=== PATIENT | male | born 1970 | race African-American/Black ===

== ENCOUNTER 2024-05-19 19:31 | Inpatient (IN) | payer MEDICAID, SELFPAY ==
[2024-05-19] VITALS (14 sets, daily range): BP systolic 196–237; BP diastolic 113–151; PULSE 92–118; RESP 16–38; TEMP 36.7–37.1; O2SAT 92–100; BMI 29.8
--- NOTE | 2024-05-19 19:43 | EKG_ITS ---
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
--- NOTE | 2024-05-19 20:03 | XR_ITS ---
Examination: AP chest single view Technique one AP portable sitting chest single view Exam date and time: May 19, 20242007 hrs. Indications: Shortness of breath today. Findings: Mild enlargement cardiac contour Mild vascular congestion. No lobar pneumonia or pulmonary edema Impression: Mild vascular congestion
--- NOTE | 2024-05-19 20:05 | PD.EDADULT ---
ED General RME/HPI General Chief complaint: Shortness of Breath/Dyspnea Stated complaint: SOB Time Seen by Provider: 05/19/24 19:58 Arrival date/time: 05/19/24 19:31 CC: Shortness of breath HPI ongoing for past several months but worse today. Does not wear oxygen at home states he has been taking all of his medications regularly. The patient is drowsy, tachypneic and tachycardic. Patient noted for history of methamphetamine abuse. Patient states he has not used methamphetamines in months . Female at bedside states he will stay if he needs to be admitted. Related Data Home Medications ?Medication ?Instructions ?Recorded ?Confirmed bumetanide 2 mg tablet 2 mg PO QDAY 12/05/23 12/17/23 Previous Rx's ?Medication ?Instructions ?Recorded labetalol 100 mg tablet 100 mg PO BID 1 month #60 tabs 03/29/23 gabapentin 300 mg capsule 300 mg PO QHS #30 caps 11/03/23 tamsulosin 0.4 mg capsule 0.4 mg PO QHS #30 caps 11/03/23 hydralazine 50 mg tablet 100 mg (2 x 50 mg) PO BID #120 tabs 12/05/23 Allergies Allergy/AdvReac Type Severity Reaction Status Date / Time No Known Allergies Allergy Verified 12/05/23 10:13 Review of Systems Review of Systems Narrative Review of Systems: GEN: No fever, no chills, no weight loss EYES: No discharge, no visual changes, no pain HEENT: No ear pain, no congestion, no sore throat PULM: + shortness of breath, no cough, no congestion CV: No chest pain, no dyspnea on exertion, no palpitations GI: No nausea, no vomiting, no diarrhea, no pain, no constipation : No frequency, no urgency, no dysuria MUSC/SKEL: No joint pain, no back pain SKIN: No rash PSYCH: No hallucinations, no depression HEME/LYMPH: No easy bleeding or bruising tendencies NEURO: No weakness, no headache Past Medical History Past Medical History CARDIAC: Positive Hypertension; Negative Congestive Heart Failure RESPIRATORY: Negative Chronic Obstructive Pulmonary Disease (COPD) GENITOURINARY: Negative Renal Disease ENDOCRINE: Negative Diabetes Mellitus Type 1 or Diabetes Mellitus Type 2 Family History FAMILY HISTORY: Positive Family Cardiac Disorders Social History SMOKING STATUS: Current some day smoker ED Exam Narrative Physical exam: [General: Drowsy but appears not in any acute distress Head normocephalic HEENT: Within acceptable limits Neck is supple nontender Chest equal chest rise nontender to palpation Respiratory: Clear to auscultation no wheezes crackles or rubs CV: Rate rhythm is regular no murmurs rubs or clicks Abdomen is soft nontender no masses positive bowel sounds all 4 quadrants Back: No CVA tenderness no spinous process tenderness from cervical spine thoracic and lumbar spine Skin: Intact no petechiae rash induration ulceration or crepitus Extremities: Moving all extremity against resistance cap refill less than 2 seconds neurosensory intact. Nonpitting lower extremity edema Neuro: Drowsy but awake alert oriented x3 Glascow coma 15 no focal deficits] Course Quality Measures none Orders Category Date Time Status EKG (ED ONLY) *Do not use* NOW Care 05/19/24 19:43 Completed EKG (ED ONLY) *Do not use* NOW Care 05/19/24 20:03 Completed EKG (ED Only) Stat Exams 05/19/24 19:43 Draft EKG (ED Only) Stat Exams 05/19/24 20:03 Ordered US abdomen limited Stat Exams 05/19/24 23:14 Completed XR chest 1V Stat Exams 05/19/24 20:03 Completed Alcohol, Blood Medical Stat Lab 05/19/24 20:27 Completed B-Type Natriuretic Peptide Stat Lab 05/19/24 20:27 Completed CBC Stat Lab 05/19/24 20:27 Completed Comprehensive Metabolic Panel Stat Lab 05/19/24 20:27 Completed D-Dimer Stat Lab 05/19/24 20:27 Completed Drug Screen,Urine Stat Lab 05/19/24 22:50 Completed LDH (Lactate Dehydrogenase) Stat Lab 05/19/24 20:27 Completed Magnesium Stat Lab 05/19/24 20:27 Completed Partial Thromboplastin Time Stat Lab 05/19/24 20:27 Completed Prothrombin Time with INR Stat Lab 05/19/24 20:27 Completed Troponin I Stat Lab 05/19/24 20:27 Completed Urinalysis Stat Lab 05/19/24 22:50 Completed Losartan [Cozaar] Med 05/19/24 22:00 Discontinued 100 mg PO X1 ONE cloNIDine HCL [Catapres] Med 05/19/24 23:22 Discontinued 0.2 mg PO X1 ONE hydrALAZINE INJ [Apresoline Inj] Med 05/19/24 22:00 Discontinued 20 mg IV X1 ONE Vital Signs Vital signs: Vital Signs Pulse Rate 105 H 05/19/24 19:36 Respiratory Rate 16 05/19/24 19:36 Blood Pressure 217/126 H 05/19/24 19:36 Pulse Oximetry (%) 100 05/19/24 19:36 Oxygen Delivery Method Nasal Cannula 05/19/24 19:36 Oxygen Flow Rate 6 05/19/24 19:36 [facility] Patient data External records reviewed:: [facility] previous records and EMS form Clinical information provided by:: patient and EMS Social determinants that could affect healthcare access:: none Patient has the following chronic illnesses:: Methamphetamine abuse CKD How is presenting disease/condition affected by chronic disease/condition?: exacerbated by Evaluation data The following diagnostics were reviewed and interpreted by me:: lab results, radiology exam(s) and EKG tracing(s) Lab and/or radiology exams considered but not ordered:: CBC shows no acute leukocytosis anemia thrombocytopenia Coags shows PT of 14.9 with an INR of 1.4 D-dimer of 1450 CMP shows a BUN of 26 and creatinine of 2.1 no other significant electrolyte imbalances. Elevated transaminases with a T. bili of 3.1 Troponin is elevated at 0.287 BNP is greater than 3250 Interpretation Summary: Review the medical record show the patient left AMA in March of last year for similar complaint. Patient assures me now this time he wants to stay. Significant other female at bedside assured me that he will stay. The patient has an elevated D-dimer with a creatinine is not capable of taking CTA contrast therefore needs a V/Q. In addition the patient has elevated troponin but not as high as it has been in the past. Patient's case discussed with Dr. Randle the resident for Dr. Coleman, who agrees to accept the patient for shortness of breath elevated D-dimer Medications Medications considered but not ordered:: None Medication administrations:: Medication Administration History Acetaminophen (Acetaminophen 325 Mg Tablet) 650 mg PO Q6H PRN PRN Reason: Pain 1-3 or Fever >100.3 Stop: 06/19/24 01:02 Bumetanide (Bumetanide Inj 0.25 Mg/Ml Vial 4 Ml) 2 mg IVP BID MICAH Stop: 06/19/24 09:29 Last Admin: 05/20/24 10:39 Dose: 2 mg Documented By: MS Gabapentin (Gabapentin 300 Mg Capsule) 300 mg PO QDAY [facility] Stop: 06/19/24 08:59 Last Admin: 05/20/24 10:41 Dose: 300 mg Documented By: MS Heparin Sodium (Porcine) (Heparin Sod Inj 5000 Unit/Ml Vial) 5,000 unit SC TID [facility] Stop: 06/03/24 21:59 Last Admin: 05/20/24 21:56 Dose: 5,000 unit Documented By: CLT Co-signed By: AD Fentanyl Citrate (Sublimaze Inj 2,500 Mcg/250 Ml Bag) 2,500 mcg in 250 mls @ 2.5 mls/hr IV .Q24H PRN; Protocol PRN Reason: PER PROTOCOL Stop: 05/25/24 16:55 Last Titration: 05/20/24 20:42 Dose: 100 mcg/hr, 10 mls/hr Documented By: Titration: 05/20/24 20:00 Dose: 100 mcg/hr, 10 mls/hr Documented By: Titration: 05/20/24 19:50 Dose: 100 mcg/hr, 10 mls/hr Documented By: Titration: 05/20/24 19:10 Dose: 100 mcg/hr, 10 mls/hr Documented By: Admin: 05/20/24 17:25 Dose: 25 mcg/hr, 2.5 mls/hr Documented By: TM Co-signed By: MARYAM Propofol (Diprivan Ivpb) 1,000 mg in 100 mls @ 2.994 mls/hr IV .Q24H PRN; Protocol PRN Reason: PER PROTOCOL Stop: 06/19/24 16:55 Last Titration: 05/20/24 19:50 Dose: 25 mcg/kg/min, 14.969 mls/hr Documented By: Titration: 05/20/24 19:10 Dose: 25 mcg/kg/min, 14.969 mls/hr Documented By: Admin: 05/20/24 17:39 Dose: 5 mcg/kg/min, 2.994 mls/hr Documented By: TM Co-signed By: MS Norepinephrine/Dextrose (Levophed In D5w 8mg/250ml) 8 mg in 250 mls @ 9.355 mls/hr IV .Q24H PRN; Protocol PRN Reason: PER PROTOCOL Stop: 06/19/24 17:25 Last Titration: 05/20/24 20:35 Dose: 0.25 mcg/kg/min, 46.777 mls/hr Documented By: Admin: 05/20/24 20:30 Dose: 0.25 mcg/kg/min, 46.777 mls/hr Documented By: JOANNA Labetalol HCl (Labetalol Inj 5 Mg/Ml Vial 20 Ml) 10 mg IVP Q6HR PRN PRN Reason: SBP >170 DBP>110 HR>80 Stop: 06/19/24 01:10 Last Admin: 05/20/24 12:24 Dose: 10 mg Documented By: Admin: 05/20/24 03:15 Dose: 10 mg Documented By: PEREZ Nitroglycerin (Nitroglycerin 0.4 Mg Subl Btl #25) 0.4 mg SL Q5MIN PRN PRN Reason: CHEST PAIN Ondansetron HCl (Ondansetron Inj 2 Mg/Ml Inj 2 Ml) 4 mg IV Q6H PRN; Protocol PRN Reason: NAUSEA OR VOMITING Stop: 06/19/24 01:02 Pantoprazole Sodium (Pantoprazole Inj 40 Mg Vial) 40 mg IVP [facility] Stop: 06/19/24 20:59 Last Admin: 05/20/24 20:54 Dose: 40 mg Documented By: JOANNA Sennosides (Senna Tablet) 1 tab PO QDAY [facility]; Protocol Stop: 06/19/24 08:59 Last Admin: 05/20/24 10:40 Dose: 1 tab Documented By: Tamsulosin HCl (Tamsulosin Hcl 0.4 Mg Capsule) 0.4 mg PO [facility] Stop: 06/19/24 20:59 Discontinued Medications Amlodipine Besylate (Amlodipine Besylate 5 Mg Tablet) 10 mg PO QDAY [facility] Stop: 06/19/24 08:59 Last Admin: 05/20/24 10:40 Dose: 10 mg Documented By: Bumetanide (Bumetanide 0.5 Mg Tablet) 2 mg PO BID [facility] Stop: 06/19/24 01:14 Last Admin: 05/20/24 11:11 Dose: Not Given Documented By: Non-Admin Reason: Cancelled by Provider Admin: 05/20/24 03:09 Dose: 2 mg Documented By: PEREZ Bumetanide (Bumetanide Inj 0.25 Mg/Ml Vial 4 Ml) 2 mg IVP X1 ONE Stop: 05/20/24 09:26 Calcium Chloride (Calcium Chloride 10% Inj 10 Ml Syrg) 10 ml IV X1 ONE Stop: 05/20/24 17:56 Last Admin: 05/20/24 18:24 Dose: 10 ml Documented By: SUKHI Clonidine (Clonidine Hcl 0.1 Mg Tablet) 0.2 mg PO X1 ONE Stop: 05/19/24 23:23 Last Admin: 05/19/24 23:26 Dose: 0.2 mg Documented By: PEREZ Etomidate (Etomidate Inj 2 Mg/Ml Vial 10 Ml) Confirm Administered Dose 40 mg .ROUTE .STK-MED ONE Stop: 05/20/24 16:47 Last Admin: 05/20/24 17:20 Dose: Not Given Documented By: SUKHI Non-Admin Reason: Override Medication Etomidate (Etomidate Inj 2 Mg/Ml Vial 10 Ml) 20 mg IVP X1 ONE Stop: 05/20/24 16:55 Last Admin: 05/20/24 16:58 Dose: 20 mg Documented By: SUKHI Etomidate (Etomidate Inj 2 Mg/Ml Vial 10 Ml) 20 mg IVP X1 ONE Stop: 05/20/24 17:46 Last Admin: 05/20/24 17:15 Dose: 20 mg Documented By: SUKHI Hydralazine HCl (Hydralazine Inj 20 Mg/Ml Vial) 20 mg IV X1 ONE Stop: 05/19/24 22:01 Last Admin: 05/19/24 22:12 Dose: 20 mg Documented By: PEREZ Hydralazine HCl (Hydralazine Hcl 25 Mg Tablet) 50 mg PO TID MICAH Stop: 06/19/24 10:14 Last Admin: 05/20/24 15:44 Dose: Not Given Documented By: Non-Admin Reason: Cancelled by Provider Admin: 05/20/24 10:39 Dose: 50 mg Documented By: Norepinephrine/Dextrose (Levophed In D5w 8mg/250ml) 8 mg in 250 mls @ 9.355 mls/hr IV .Q24H PRN; Protocol PRN Reason: PER PROTOCOL Stop: 06/19/24 17:25 Last Titration: 05/20/24 20:30 Dose: 0 mcg/kg/min, 0 mls/hr Documented By: Titration: 05/20/24 19:20 Dose: 0.25 mcg/kg/min, 46.777 mls/hr Documented By: Titration: 05/20/24 19:10 Dose: 0.25 mcg/kg/min, 46.777 mls/hr Documented By: Admin: 05/20/24 17:43 Dose: 0.05 mcg/kg/min, 9.355 mls/hr Documented By: SUKHI Lactated Ringer's (Lactated Ringers) 1,000 mls @ 999 mls/hr IV .Q1H1M ONE Stop: 05/20/24 19:07 Last Infusion: 05/20/24 20:31 Dose: Infused Documented By: Admin: 05/20/24 18:48 Dose: 999 mls/hr Documented By: SUKHI Calcium Chloride 10 ml/ Sodium (Chloride) 110 mls @ 110 mls/hr IV X1 ONE Stop: 05/20/24 18:44 Last Infusion: 05/20/24 20:49 Dose: Infused Documented By: Admin: 05/20/24 18:48 Dose: 110 mls/hr Documented By: SUKHI Calcium Chloride 10 ml/ Sodium (Chloride) 110 mls @ 110 mls/hr IV X1 ONE Stop: 05/20/24 19:17 Last Infusion: 05/20/24 20:50 Dose: Infused Documented By: Admin: 05/20/24 19:48 Dose: 110 mls/hr Documented By: JOANNA Norepinephrine/Dextrose (Levophed In D5w 8mg/250ml) 8 mg in 250 mls @ 9.355 mls/hr IV .Q24H PRN; Protocol PRN Reason: PER PROTOCOL Stop: 06/19/24 17:25 Labetalol HCl (Labetalol 100 Mg Tablet) 100 mg PO BID MICAH Stop: 06/19/24 08:59 Last Admin: 05/20/24 11:11 Dose: Not Given Documented By: Non-Admin Reason: Cancelled by Provider Lorazepam (Lorazepam 2 Mg/Ml Vial) 1 mg IVP X1 ONE Stop: 05/20/24 17:31 Last Admin: 05/20/24 17:33 Dose: 1 mg Documented By: TM Lorazepam (Lorazepam 2 Mg/Ml Vial) Confirm Administered Dose 2 mg .ROUTE .STK-MED ONE Stop: 05/20/24 17:28 Last Admin: 05/20/24 17:44 Dose: Not Given Documented By: SUKHI Non-Admin Reason: Override Medication Losartan Potassium (Losartan Potassium 25 Mg Tablet) 100 mg PO X1 ONE Stop: 05/19/24 22:01 Last Admin: 05/19/24 22:13 Dose: 100 mg Documented By: PEREZ Nifedipine (Nifedipine 10 Mg Capsule) 30 mg PO TID [facility] Stop: 06/19/24 15:14 Last Admin: 05/20/24 15:47 Dose: 30 mg Documented By: Potassium Chloride (Potassium Chloride 20 Meq Tabcr) 40 meq PO X1 ONE Stop: 05/20/24 09:23 Last Admin: 05/20/24 10:47 Dose: 40 meq Documented By: Potassium Chloride (Potassium Chloride 20 Meq Tabcr) 20 meq PO X1 ONE Stop: 05/20/24 11:01 Last Admin: 05/20/24 10:47 Dose: 20 meq Documented By: Sevelamer Carbonate (Sevelamer Carbonate 800 Mg Tablet) 800 mg PO X1 ONE Stop: 05/20/24 10:19 Last Admin: 05/20/24 12:07 Dose: 800 mg Documented By: Succinylcholine Chloride (Succinylcholine Inj 20 Mg/Ml Vial 10 Ml) Confirm Administered Dose 400 mg .ROUTE .STK-MED ONE Stop: 05/20/24 16:48 Last Admin: 05/20/24 17:20 Dose: Not Given Documented By: SUKHI Non-Admin Reason: Override Medication Succinylcholine Chloride (Succinylcholine Inj 20 Mg/Ml Vial 10 Ml) 100 mg IV X1 ONE Stop: 05/20/24 16:55 Last Admin: 05/20/24 16:59 Dose: 100 mg Documented By: SUKHI Tamsulosin HCl (Tamsulosin Hcl 0.4 Mg Capsule) 0.4 mg PO QDAY [facility] Stop: 06/19/24 08:59 Last Admin: 05/20/24 11:11 Dose: Not Given Documented By: Non-Admin Reason: Cancelled by Provider None Consultations Consultation(s) initiated? (list below): No Diagnosis Differential Diagnosis ED Complaint MDM: PE congestive heart failure pneumonia Most likely diagnosis given after review of the tests above:: Shortness of breath Admission Indicated Admission indicated?: indicated Explain why admission is indicated or not indicated:: Further medical management Admission Request Was there a request for admission?: No Disposition Plan Disposition Plan: Admit Medical Decision Making Differential Diagnosis Differential Diagnosis: PE congestive heart failure pneumonia Lab Data 05/20/24 18:18 05/20/24 18:18 Labs: Lab Results 05/19/24 05/19/24 Range/Units 20:27 22:50 WBC 5.6 (3.8-10.6) Thou/mm3 RBC 5.08 (4.50-5.90) Miln/mm3 Hgb 16.1 H (13.5-16.0) g/dL Hct 47.1 (41.0-53.0) % MCV 93 (80-100) fL MCH 31.7 (25.0-35.0) pg MCHC 34.2 (31.0-37.0) g/dl RDW Std Deviation 49.8 H (35.1-43.9) fL Plt Count 213 (140-440) Thou/mm3 Neut % (Auto) 75 (37-80) % Lymph % (Auto) 8 L (10-50) % [place] % (Auto) 16 H (0-12) % Eos % (Auto) 0 (0-10) % Baso % (Auto) 0 (0-2.5) % Neut # (Auto) 4.2 (1.8-7.7) Thou/mm3 Lymph # (Auto) 0.4 L (1.0-4.8) Thou/mm3 [place] # (Auto) 0.9 H (0.0-0.8) Thou/mm3 Eos # (Auto) 0.0 (0.0-0.5) Thou/mm3 Baso # (Auto) 0.0 (0.0-0.2) Thou/mm3 Immature Gran # (Auto) 0.06 H (0.00-0.00) Thou/mm3 Absolute Nucleated RBC 0.00 (0.00-0.00) Thou/mm3 Immature Gran % 1 H (0-0) % Nucleated RBC % 0 (0) /100 WBC PT 14.9 H (9.0-12.2) Seconds INR 1.4 H (0.9-1.3) APTT 30.1 (22.0-36.0) Seconds D-Dimer 1450 H (<600) ng/mL Sodium 136 (136-145) mMol/L Potassium 3.8 (3.4-5.1) mMol/L Chloride 96 L (98-107) mMol/L Carbon Dioxide 23.3 (20.0-31.0) mMol/L Anion Gap 17 H (7-16) BUN 26 H (9-23) mg/dL Creatinine 2.1 H (0.6-1.3) mg/dL Estim Creat Clear Calc 48.6 L (>60) mL/min eGFR 36 L (60 - ) See Note BUN/Creatinine Ratio 12 (12-20) Ratio Glucose 91 (74-106) mg/dL Calculated Osmolality 276 (275-295) Calcium 9.8 (8.3-10.6) mg/dL Corrected Calcium 9.8 (8.5-10.1) mg/dL Magnesium 2.2 (1.6-2.6) mg/dL Total Bilirubin 4.3 H (0.3-1.2) mg/dL AST 86 H (0-34) U/L ALT 50 H (10-49) U/L Alkaline Phosphatase 122 H (46-116) U/L Lactate Dehydrogenase 616 H (120-246) U/L Troponin I 0.287 H* (0.0-0.045) ng/mL B-Natriuretic Peptide > 3280 H* (0-100) pg/mL Total Protein 8.4 H (5.7-8.2) gm/dL Albumin 4.3 (3.5-5.0) gm/dL Globulin 4.1 H (2.3-3.5) gm/dL Albumin/Globulin Ratio 1.0 L (1.2-2.2) Ur Collection Type Clean Catch Urine Color Drk-Yellow A (Lt Yel-Yel) Urine Clarity Clear (Clear/Hazy) Urine pH 6.0 (5.0-7.0) Ur Specific [place] 1.025 (1.001-1.035) Urine Protein 3+ A (Neg - Trace) Urine Glucose (UA) Negative (Negative) Urine Ketones Trace (Negative) Urine Blood 1+ A (Negative) Urine Nitrite Negative (Negative) Urine Bilirubin 1+ A (Negative) Urine Urobilinogen (Auto) 8.0 (0.0-1.0) mg/dL Ur Leukocyte Esterase Negative (Negative) Urine RBC 3 (0-3) /hpf Urine WBC 0 (0-5) /hpf Ur Squamous Epith Cells < 1 (0-5) /hpf Urine Bacteria None (None) Hyaline Casts 1 (0-1) /hpf Urine Opiates Screen Negative (Negative) Urine Fentanyl Screen Negative (Negative) Ur Barbiturates Screen Negative (Negative) U Amphetamin/Meth Scrn Positive A (Negative) U Benzodiazepines Scrn Negative (Negative) U Cocaine Metab Screen Negative (Negative) U Marijuana (THC) Screen Positive A (Negative) Ethyl Alcohol < 3.0 (0-10.0) mg/dL Discharge Plan Plan Patient Disposition: Admit Acute Care w/in Hospital Problem List Clinical Impression: Shortness of breath, Methamphetamine abuse, D-dimer, elevated PA/[employer] Supervising Physician [employer] Supervising Physician: Thaddeus Craft ENP
[2024-05-19 20:51] LABS: Basophils % (Auto) 0 % (0-2.5); Eosinophils % (Auto) 0 % (0-10); Hematocrit 47.1 % (41.0-53.0); Hemoglobin 16.1 g/dL (13.5-16.0); Immature Granulocytes % (Auto) 1 % (0-0); Immature Granulocytes Auto 0.06 Thou/mm3 (0.00-0.00); Lymphocytes # (Auto) 0.4 Thou/mm3 (1.0-4.8); Lymphocytes % (Auto) 8 % (10-50); Mean Corpuscular HGB Conc 34.2 g/dl (31.0-37.0); Mean Corpuscular Hemoglobin 31.7 pg (25.0-35.0); Mean Corpuscular Volume 93 fL (80-100); Monocytes # (Auto) 0.9 Thou/mm3 (0.0-0.8); Monocytes % (Auto) 16 % (0-12); Neutrophils # (Auto) 4.2 Thou/mm3 (1.8-7.7); Neutrophils % (Auto) 75 % (37-80); Nucleated Red Blood Cell % 0 /100 WBC (0); Platelet Count 213 Thou/mm3 (140-440); RDW Standard Deviation 49.8 fL (35.1-43.9); Red Blood Count 5.08 Miln/mm3 (4.50-5.90); White Blood Count 5.6 Thou/mm3 (3.8-10.6)
[2024-05-19 21:06] LABS: D-Dimer 1450 ng/mL (<600)
[2024-05-19 21:15] LABS: INR 1.4 (0.9-1.3); Partial Thromboplastin Time 30.1 Seconds (22.0-36.0); Prothrombin Time 14.9 Seconds (9.0-12.2)
[2024-05-19 21:21] LABS: Alanine Aminotransferase 50 U/L (10-49); Albumin, Serum 4.3 gm/dL (3.5-5.0); Alkaline Phosphatase 122 U/L (46-116); Anion Gap 17 (7-16); Aspartate Amino Transferase 86 U/L (0-34); BUN/Creatinine Ratio 12 Ratio (12-20); Bilirubin,Total 4.3 mg/dL (0.3-1.2); Blood Urea Nitrogen 26 mg/dL (9-23); Calcium 9.8 mg/dL (8.3-10.6); Calcium (Corrected) 9.8 mg/dL (8.5-10.1); Carbon Dioxide 23.3 mMol/L (20.0-31.0); Chloride 96 mMol/L (98-107); Creatinine (Component) 2.1 mg/dL (0.6-1.3); Estimated Creatinine Clearance 48.6 mL/min (>60); Globulin 4.1 gm/dL (2.3-3.5); Glucose 91 mg/dL (74-106); Magnesium 2.2 mg/dL (1.6-2.6); Osmolality,Calculated 276 (275-295); Potassium 3.8 mMol/L (3.4-5.1); Sodium 136 mMol/L (136-145); Total Protein 8.4 gm/dL (5.7-8.2); eGFR 36 See Note
[2024-05-19 21:24] LABS: Troponin I 0.287 ng/mL (0.0-0.045)
[2024-05-19 21:25] LABS: B-Type Natriuretic Peptide > 3280 pg/mL (0-100)
[2024-05-19] MEDS: hydrALAZINE INJ 20 MG/ML VIAL IV (22:12)
[2024-05-19] MEDS: LOSARTAN POTASSIUM 25 MG TABLET 100 MG PO (22:13)
[2024-05-19 23:04] LABS: Collection Type, Urine Clean Catch; WBC,Urine 0 /hpf (0-5)
--- NOTE | 2024-05-19 23:14 | XR_ITS ---
Examination: Abdomen sonogram, Limited Date and time of exam: May 19, 2024 11:35 PM Indications: Onset right upper abdominal pain beginning one week ago Technique: Real-time calhoun scale transabdominal sonographic images of the upper abdomen obtained. Findings: Gallbladder wall 0.3 cm with pericholecystic fluid No gallstones Common bile duct 0.3 cm Pancreatic head 2.2 cm Liver 19 cm fatty infiltration lobular contour, ascites Normal hepatopedal portal venous flow Patent IVC Impression: Negative for cholelithiasis Fluid around the gallbladder wall, however the patient has ascites, clinical correlation advised, consider HIDA scan follow-up as clinically warranted Cirrhosis
[2024-05-19 23:20] LABS: Bilirubin,Urine 1+ (Negative); Blood,Urine 1+ (Negative); Clarity,Urine Clear (Clear/Hazy); Color,Urine Drk-Yellow (Lt Yel-Yel); Glucose, Urine Negative (Negative); Hyaline Casts,Urine 1 /hpf (0-1); Ketones,Urine Trace (Negative); Leukocyte Esterase,Urine Negative (Negative); Nitrite,Urine Negative (Negative); Protein,Urine 3+ (Neg - Trace); RBC,Urine 3 /hpf (0-3); Specific Gravity,Urine 1.025 (1.001-1.035); Squamous Epithelial Cell,Urine < 1 /hpf (0-5)
[2024-05-19] MEDS: cloNIDine HCL 0.1 MG TABLET 0.2 MG PO (23:26)
--- NOTE | 2024-05-19 23:28 | PC.NURSE ---
BP still high. MD awake
[2024-05-19 23:41] LABS: Amphetamine/Methamp Scrn,U Positive (Negative); Barbiturate Screen,Urine Negative (Negative); Benzodiazepines Screen,Urine Negative (Negative); Benzoylecgonine Screen, Ur Negative (Negative); Fentanyl Screen,Urine Negative (Negative); Opiate Screen,Urine Negative (Negative); THC Screen,Urine Positive (Negative)
[2024-05-19 23:42] LABS: Alcohol, Blood Medical < 3.0 mg/dL (0-10.0)
[2024-05-20] VITALS (73 sets, daily range): BP systolic 77–208; BP diastolic 59–141; PULSE 54–109; RESP 10–36; TEMP 36.3–37.1; O2SAT 74–100
--- NOTE | 2024-05-20 01:10 | ECHO_ITS ---
Transthoracic Echo Report Ht (in): 72 Wt (lb): 220 Exam Location: Echo Lab Status: Emergency Surgical Pathologist: Corina Lopez Indications: Procedure Performed: BP: 164 / 99 HR: 93 Technical Quality: Technically difficult study MEASUREMENTS (Male / Female) Normal Values 2D ECHO LV Diastolic Diameter PLAX 4.9 cm 4.2 - 5.9 / 3.9 - 5.3 cm LV Systolic Diameter PLAX 3.9 cm IVS Diastolic Thickness 1.5 cm 0.6 - 1.0 / 0.6 - 0.9 cm LVPW Diastolic Thickness 1.6 cm 0.6 - 1.0 / 0.6 - 0.9 cm LV Relative Wall Thickness 0.6 LVOT Diameter 2.0 cm LA Volume Index 20.7 cm?/m? 16 - 28 cm?/m? M-MODE Aortic Root Diameter MM 2.9 cm LA Systolic Diameter MM 4.5 cm LA Ao Ratio MM 1.6 AV Cusp Separation MM 2.3 cm DOPPLER AV Peak Velocity 136.0 cm/s AV Peak Gradient 7.4 mmHg AV Mean Gradient 4.0 mmHg AV Velocity Time Integral 16.5 cm LVOT Peak Velocity 122.0 cm/s LVOT Peak Gradient 6.0 mmHg LVOT Velocity Time Integral 14.7 cm LVOT Cardiac Index 1888.6 cm?/min?m? AV Area Cont Eq vti 2.8 cm? AV Area Cont Eq pk 2.8 cm? MV Area PHT 3.5 cm? MR Peak Velocity 265.0 cm/s MR Peak Gradient 28.1 mmHg Mitral E Point Velocity 52.4 cm/s Mitral A Point Velocity 69.4 cm/s Mitral E to A Ratio 0.8 LV E' Lateral Velocity 6.4 cm/s Mitral E to LV E' Lateral Ratio 8.2 LV E' Septal Velocity 4.3 cm/s Mitral E to LV E' Septal Ratio 12.0 TR Peak Velocity 296.0 cm/s TR Peak Gradient 35.0 mmHg PV Peak Velocity 77.4 cm/s PV Peak Gradient 2.4 mmHg FINDINGS Left Ventricle Normal left ventricular size, systolic function with no obvious regional wall motion abnormalities. Moderate LVH. Normal left ventricular diastolic filling pattern for age. The ejection fraction is visually es timated at 45- 50 %. Right Ventricle The right ventricular size is mildy increased. The right ventricular systolic function is moderately decreased. Left Atrium The left atrium is normal by two-dimensional, color flow and Doppler imaging with no structural abnormalities, no thrombus formation present. Right Atrium The right atrial cavity size is moderately increased. Atrial Septum The interatrial septum appears normal with no evidence of a shunt. Aorta The aorta is normal by two-dimensional, color flow and Doppler interrogation. Mitral Valve The mitral valve is normal by two-dimensional, color flow and Doppler interrogation. There is no sig nificant mitral valve regurgitation, stenosis or prolapse. Aortic Valve The aortic valve is trileaflet and normal by two-dimensional, color flow and Doppler interrogation. There is no significant aortic valve regurgitation. Tricuspid Valve There is moderate tricuspid regurgitation. Pulmonic Valve The pulmonic valve is not well visualized. There is no significant pulmonic valve regurgitation. Vessels Dilated inferior vena cava. Pericardium The pericardium is normal by two-dimensional imaging. There is no significant pericardial effusion. CONCLUSIONS Indication: Acute hypoxic respiratory failure and CHF Small LV size, moderate LVH with low normal ejection fraction at around 50% Flattened interatrial septum in both systole and diastole indicating both RV pressure and volume ove rload. Severely dilated right ventricle with moderate RV systolic dysfunction and massively dilated right a trium. Moderate to severe TR and estimated RVSP around 60 mmHg indicating moderate to severe pulmonary hypertension Trace MR and dilated IVC Remy Pham (Electronically Signed) Final Date: 21 May 2024 20:59
[2024-05-20 02:30] LABS: LDH (Lactate Dehydrogenase) 616 U/L (120-246)
[2024-05-20 02:35] LABS: Troponin I 0.366 ng/mL (0.0-0.045)
[2024-05-20] MEDS: BUMETANIDE 0.5 MG TABLET 2 MG PO (03:09)
[2024-05-20] MEDS: LABETALOL INJ 5 MG/ML VIAL 20 ML 10 MG IVP ×2 (03:15→12:24)
--- NOTE | 2024-05-20 03:30 | PC.NURSE ---
opt hungry. Food given.
--- NOTE | 2024-05-20 03:54 | XR_ITS ---
Examination: CT abdomen and pelvis without contrast. Coronal 3-D reconstructions. Sagittal 2-D reconstructions. Date and time of exam:May 20, 2024 0426 hrs. Indications: Onset abdominal pain beginning 2 months ago CTDI: vol (mGy): 8.95 DLP: (mGycm): 519 Technique: Axial images of the abdomen have been obtained, 3 mm slice thickness Intravenous contrast material has not been administered. Low dose protocols were performed. One or more of the following dose reduction techniques were used; automated exposure control, adjustment of the mA and/or KV according to patient size, use of iterative reconstruction technique. Findings: Moderate enlargement cardiac contour Cirrhosis, liver irregular in contour with mild ascites No definite gallstones Spleen is not enlarged No pancreatic mass No renal or ureteral calculi, no hydronephrosis Aorta normal size Fat and fluid containing umbilical hernia No bowel obstruction Urinary bladder intact with mild wall thickening No prostatomegaly Moderate disc narrowing L5-S1 IMPRESSION: Moderate cardiomegaly Cirrhosis Mild ascites No renal or ureteral calculi, no hydronephrosis No bowel obstruction Mild thickening urinary bladder wall, consider cystitis
--- NOTE | 2024-05-20 03:59 | ESHP_ITS ---
Documentation for date of: 05/20/24 [facility] History of Present Illness History of present illness: The patient is a 54-year-old male with a past medical history of hypertension, CKD, HFpEF, methamphetamine use who presents to the ED on 05/19/2024 with complaints of shortness of breath. He reports that he has been having the symptoms for about two months, initially on exertion, progressively worsened and now has it at rest, as well as bilateral pitting edema. He endorses a dry cough that occasionally gets productive and palpitations as well as subjective fevers. He also endorses abdominal pain and loss of appetite. Partner at bedside mentions that he was more lethargic today which prompted the ED visit. The patient does have a history of HFpEF and is seen by cardiology Dr. Stubbs in [place] who recently increased his dose of Bumex from 2 mg daily to twice a day. Per partner at bedside, patient has not been taking his medications regularly and takes them every other day at best. He is a current smoker and has been smoking for more than 15years but is curently trying to cut down and now smokes half a pack every 3-4 days. He reports that he stopped drinking alcohol many years ago and now only uses marijuana occasionally. ED course: In the ED, the patient was afebrile, hypertensive with BP in the 200s, tachycardiac and tachypneic, saturating 92% on room air. CBC was unremarkable, PT and INR were seen to be elevated as well as D-dimer at 1450. CMP was significant for BUN of 26, Cr 2.1(baseline about 1.8).CXR showed mild vascular congestion and EKG sinus tachycardia. T.bili was elevated at 4.3, AST, ALT and ALP elevated as well as LDH. US abdomen negative for cholelithiasis. Troponin elevated at 0.287, BNP>3280. UA positive for 3+ protein and Utox positive for methamphethamine and marijuana. He received hydralazine 20mg, losartan and clonidine and is being admitted for management of acute hypoxic respiratory failure, acute decompensated heart disease. Review of Systems Review of Systems Narrative Review of Systems: GENERAL: Denies fevers/chills or diaphoresis. HEENT: Denies headache or visual/hearing changes. Denies nasal discharge. NEURO: Denies unusual weakness or difficulty speaking. CARDIO: Denies chest pain, admits palpitations PULM: Admits shortness of breath and coughing GI: Admits abdominal pain, denies nausea vomiting or diarrhea. Reports having BMs. URO: Denies burning/itching/pain/urinary changes. MSK/EXT/SKIN: Denies joint/skeletal/muscle pain, issues/changes in upper or lower extremities, itchiness, or superficial pain. PSYCH: Cooperative, pleasant mood & affect. 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 Eyes open, symmetrical, & clear CARDIO: No chest pain on palpation. Tachycardic, no obvious murmurs PULM: Coughing, tachypneic. Bilateral crackles, Nasal cannula in situ 5L GI: Abdomen soft, mildly distended, mildly tender on palpation in RUQ. 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 SKIN/MSK/EXT: Bilateral pitting edema 2+ up to knees Results: Labs 05/20/24 05:06 05/19/24 20:27 Labs: Short CBC 05/19/24 Range/Units 20:27 WBC 5.6 (3.8-10.6) Thou/mm3 Hgb 16.1 H (13.5-16.0) g/dL Hct 47.1 (41.0-53.0) % Plt Count 213 (140-440) Thou/mm3 BMP 05/19/24 20:27 Sodium 136 Potassium 3.8 Chloride 96 L Carbon Dioxide 23.3 BUN 26 H Creatinine 2.1 H Glucose 91 Calcium 9.8 Cardiac Enzymes 05/19/24 05/20/24 Range/Units 20:27 01:40 Troponin I 0.287 H* 0.366 H* (0.0-0.045) ng/mL Liver Function 05/19/24 Range/Units 20:27 Total Bilirubin 4.3 H (0.3-1.2) mg/dL AST 86 H (0-34) U/L ALT 50 H (10-49) U/L Alkaline Phosphatase 122 H (46-116) U/L Albumin 4.3 (3.5-5.0) gm/dL Urine 05/19/24 Range/Units 22:50 Urine Color Drk-Yellow A (Lt Yel-Yel) Urine Clarity Clear (Clear/Hazy) Urine pH 6.0 (5.0-7.0) Ur Specific [place] 1.025 (1.001-1.035) Urine Protein 3+ A (Neg - Trace) Urine Glucose (UA) Negative (Negative) Quality Measures Quality Measures VTE prophylaxis Medications Home Medications and Allergies Home Medications ?Medication ?Instructions ?Recorded ?Confirmed ?Type bumetanide 2 mg tablet 2 mg PO QDAY 12/05/23 12/17/23 History Allergies Allergy/AdvReac Type Severity Reaction Status Date / Time No Known Allergies Allergy Verified 12/05/23 10:13 Visit Medications Acetaminophen (Acetaminophen 325 Mg Tablet) 650 mg PO Q6H PRN PRN Reason: Pain 1-3 or Fever >100.3 Stop: 06/19/24 01:02 Amlodipine Besylate (Amlodipine Besylate 5 Mg Tablet) 10 mg PO QDAY [facility] Stop: 06/19/24 08:59 Bumetanide (Bumetanide 0.5 Mg Tablet) 2 mg PO BID [facility] Stop: 06/19/24 01:14 Last Admin: 05/20/24 03:09 Dose: 2 mg Gabapentin (Gabapentin 300 Mg Capsule) 300 mg PO QDAY [facility] Stop: 06/19/24 08:59 Labetalol HCl (Labetalol Inj 5 Mg/Ml Vial 20 Ml) 10 mg IVP Q6HR PRN PRN Reason: SBP >170 DBP>110 HR>80 Stop: 06/19/24 01:10 Last Admin: 05/20/24 03:15 Dose: 10 mg Ondansetron HCl (Ondansetron Inj 2 Mg/Ml Inj 2 Ml) 4 mg IV Q6H PRN; Protocol PRN Reason: NAUSEA OR VOMITING Stop: 06/19/24 01:02 Sennosides (Senna Tablet) 1 tab PO QDAY [facility]; Protocol Stop: 06/19/24 08:59 Tamsulosin HCl (Tamsulosin Hcl 0.4 Mg Capsule) 0.4 mg PO QDAY [facility] Stop: 06/19/24 08:59 Discontinued Medications Clonidine (Clonidine Hcl 0.1 Mg Tablet) 0.2 mg PO X1 ONE Stop: 05/19/24 23:23 Last Admin: 05/19/24 23:26 Dose: 0.2 mg Hydralazine HCl (Hydralazine Inj 20 Mg/Ml Vial) 20 mg IV X1 ONE Stop: 05/19/24 22:01 Last Admin: 05/19/24 22:12 Dose: 20 mg Losartan Potassium (Losartan Potassium 25 Mg Tablet) 100 mg PO X1 ONE Stop: 05/19/24 22:01 Last Admin: 05/19/24 22:13 Dose: 100 mg Assessment & Plan Assessment Summary: The patient is a 54-year-old male with a past medical history of hypertension, CKD, HFpEF, methamphetamine use who presents to the ED on 05/19/2024 with complaints of shortness of breath. Has been admitted for management of acute hypoxic respiratory failure, decompensated heart disease. #Acute hypoxic respiratory failure #Acute decompensated heart disease #History of HFpEF He reports that he has been having the symptoms for about two months, initially on exertion, progressively worsened and now has it at rest, as well as bilateral pitting edema. He endorses a dry cough that occasionally gets productive and palpitations as well as subjective fevers. The patient does have a history of HFpEF and is seen by cardiology Dr. Stubbs in [place] who recently increased his dose of Bumex from 2 mg daily to twice a day. Per partner at bedside, patient has not been taking his medications regularly and takes them every other day at best. BNP on admission > 3280. Last echocardiogram on file was done about a year ago and showed diastolic dysfunction stage I with a EF 50 to 55% Chest x-ray on admission showed mild vascular congestion D-dimer elevated at 1450, Well's score for PE- 1.5 (Tachycardia) Plan: -Admit to telemetry -Bumex 2 mg twice daily -Strict I&O's -Daily weights -Echocardiogram #Acute on chronic kidney disease #Prerenal versus Cardiorenal Patient has a history of CKD. Admitting labs showed BUN of 26 and creatinine 2.1, baseline looks to be about 1.8. Patient has been tolerating diet but at a reduced rate. Plan: -Continue diuresis -Avoid nephrotoxic medications -Renally dose medications #Transaminitis #Hyperbilirubinemia In admission, patient had a T. bili of 4.3 which is elevated from last admission as well as slightly elevated AST and ALT, ALP and LDH. Patient did complain of some abdominal pain and was mildly tender on examination of the right upper quadrant. Gallbladder ultrasound was done which was negative for cholelithiasis but showed some fluid around the gallbladder wall. INR elevated Plan: -CT abdomen pelvis without contrast -Hepatitis panel -Continue to monitor LFTs #History of hypertension Patient has a history of hypertension and is on labetalol and amlodipine at home. Patient has not been compliant with his medications at home. Blood pressure on admission greater than 200 and the patient received hydralazine 20 mg and clonidine in ED. Plan: -Continue home meds amlodipine and labetalol -IV labetalol 10 mg Q6hr PRN with hold parameters Health maintenance: Dispo: Tele Diet: Cardiac DVT: SCDs Garcia: None Lines: Peripheral Med Rec: Pending, f/u PT: Not ordered Code: Full Case was discussed with attending physician, Dr Elly Costa MD PGY-1 Attending Provider Attestation/Addendum 54-year-old male patient with hypertension, congestive heart failure, history of substance use was admitted because of shortness of breath and swelling.The patient has a key account representative in [place] Dr. Stubbs. He was recently started on Bumex twice a day. According to his significant other at bedside the patient has been compliant with his medication and diet. Patient will be admitted for CHF exace his blood pressure is very high. He has hypertensive urgency.
[2024-05-20 05:38] LABS: Basophils % (Auto) 0 % (0-2.5); Eosinophils % (Auto) 0 % (0-10); Hematocrit 42.6 % (41.0-53.0); Hemoglobin 14.6 g/dL (13.5-16.0); Immature Granulocytes % (Auto) 1 % (0-0); Immature Granulocytes Auto 0.03 Thou/mm3 (0.00-0.00); Lymphocytes # (Auto) 0.6 Thou/mm3 (1.0-4.8); Lymphocytes % (Auto) 17 % (10-50); Mean Corpuscular HGB Conc 34.3 g/dl (31.0-37.0); Mean Corpuscular Hemoglobin 31.6 pg (25.0-35.0); Mean Corpuscular Volume 92 fL (80-100); Monocytes # (Auto) 0.8 Thou/mm3 (0.0-0.8); Monocytes % (Auto) 21 % (0-12); Neutrophils # (Auto) 2.4 Thou/mm3 (1.8-7.7); Neutrophils % (Auto) 61 % (37-80); Nucleated Red Blood Cell % 0 /100 WBC (0); Platelet Count 181 Thou/mm3 (140-440); RDW Standard Deviation 48.5 fL (35.1-43.9); Red Blood Count 4.62 Miln/mm3 (4.50-5.90); White Blood Count 3.8 Thou/mm3 (3.8-10.6)
[2024-05-20 06:00] LABS: Alanine Aminotransferase 84 U/L (10-49); Albumin/Globulin Ratio 1.2 (1.2-2.2); Alkaline Phosphatase 108 U/L (46-116); Anion Gap 13 (7-16); Aspartate Amino Transferase 112 U/L (0-34); BUN/Creatinine Ratio 17 Ratio (12-20); Bilirubin,Total 3.9 mg/dL (0.3-1.2); Blood Urea Nitrogen 35 mg/dL (9-23); Calcium 8.8 mg/dL (8.3-10.6); Calcium (Corrected) 8.8 mg/dL (8.5-10.1); Carbon Dioxide 21.9 mMol/L (20.0-31.0); Cardiac Risk Estimate 3.2 RATIO (4.0-6.7); Chloride 98 mMol/L (98-107); Cholesterol 92 mg/dL (132-200); Creatinine (Component) 2.1 mg/dL (0.6-1.3); Estimated Creatinine Clearance 48.6 mL/min (>60); Globulin 3.4 gm/dL (2.3-3.5); Glucose 104 mg/dL (74-106); HDL Cholesterol 29 mg/dL (40-60); LDL Cholesterol,Calculated 49 mg/dL (0-130); Magnesium 2.1 mg/dL (1.6-2.6); Osmolality,Calculated 274 (275-295); Potassium 3.2 mMol/L (3.4-5.1); Sodium 133 mMol/L (136-145); Thyroid Stimulating Hormone 2.39 uIU/mL (0.55-4.78); Total Protein 7.4 gm/dL (5.7-8.2); Triglycerides 71 mg/dL (30-150); eGFR 36 See Note
[2024-05-20 06:38] LABS: Hepatitis A Antibody IgM Non Reactive (Non React); Hepatitis B Core Antibody IgM Non Reactive (Non React); Hepatitis B Surface Antigen Non Reactive (Non React); Hepatitis C Antibody Non Reactive (Non React)
[2024-05-20 10:10] LABS: Phosphorous 5.3 mg/dL (2.4-5.1)
--- NOTE | 2024-05-20 10:17 | XR_ITS ---
Examination: Venous duplex lower extremity sonogram, bilateral. Date and time of exam: May 20, 2024 1110 hours INDICATIONS: Bilateral leg swelling beginning months ago Technique: Multiple sonographic images of the deep venous system have been obtained. B-mode/2-D grayscale imaging of vascular structures and Doppler spectral analysis (waveforms) and color performed Both legs are examined. Findings: Deep venous systems do not demonstrate abnormal echogenicity. All visualized deep veins exhibit compressibility. All visualized deep veins exhibit augmentation. Impression: Negative for deep vein thrombosis
[2024-05-20] MEDS: BUMETANIDE INJ 0.25 MG/ML VIAL 4 ML 2 MG IVP (10:39)
[2024-05-20] MEDS: hydrALAZINE HCL 25 MG TABLET 50 MG PO (10:39)
[2024-05-20] MEDS: SENNA TABLET 1 TAB PO (10:40)
[2024-05-20] MEDS: amLODIPine BESYLATE 5 MG TABLET 10 MG PO (10:40)
[2024-05-20] MEDS: GABAPENTIN 300 MG CAPSULE PO (10:41)
[2024-05-20] MEDS: POTASSIUM CHLORIDE 20 mEq TABCR 40 MEQ PO (10:47)
[2024-05-20] MEDS: POTASSIUM CHLORIDE 20 mEq TABCR PO (10:47)
--- NOTE | 2024-05-20 11:09 | PD.RESCONSUL ---
HPI Data of Consult Requesting Physician: Carlos Sanabria MD Admitting Provider: Carlos Sanabria MD Attending Provider: Carlos Sanabria MD Primary Care Provider: Mateo Hernandez MD Consult Narrative Reason for consult: CHF exacerbation and NSTEMI History of present illness: 54-year-old male with past medical history of meth use, HFpEF (50 to 55% on 2022), CKD, and hypertension was admitted to the hospital on 05/20/2024 due to acute decompensated heart failure exacerbation. In the ED patient had complaints of shortness of breath for the past several months, but has been progressively gotten worse to the point that he had to come into the ER. Initially patient was hypertensive, tachycardic, hypoxic, and afebrile. Initial labs showed WBC 5.6, Hgb 16.1, D-dimer 1450, PT 14.9, INR 1.4, sodium 136, potassium 3.8, chloride 96, BUN 26, creatinine 2.1, magnesium 2.2, T bilirubin 4.3, AST 86, ALT 50, alkaline phosphatase 122, LDH 616, troponin 0.287 and up trended to 0.567, BNP more than 3280, UA positive for protein and blood, U tox was positive for marijuana and meth. Initial imaging included chest x-ray which shows some vascular congestion, abdomen ultrasound which showed cirrhosis and ascites, abdomen/pelvis CT which showed moderate cardiomegaly, cirrhosis, mild ascites, and mild thickening of the urinary bladder wall, and venous Doppler study did not show any DVTs. EKG which showed sinus tachycardia Echo on 03/15/2023 had the following findings: Normal LV size and function. Moderate LVH. Diastolic dysfunction stage I. Estimated EF 50 to 55%. Normal RV size and function. Trace TR. Of note patient was previously seen in our ER on 12/17/2023 due to elevated blood pressure in the 180s over 120s. Patient is a poor historian. During my assessment patient stated that he had been short of breath and has been having lower extremity swelling for the past couple of months but it has progressively gotten worse as of recently and he decided to come to the ER. He stated that he follows up with a yard coupler in [place], but does not recall any medication at this time. Patient stated that he also started seeing his stomach getting swelling. He stated that he used meth around 2 weeks ago, but U tox was positive for meth. On my assessment patient was very short of breath having to stop in between sentences. He denied having any chest pain, palpitations, headaches, or syncopal episodes. PMH: meth use, HFpEF (50 to 55% on 2022), CKD, and hypertension FMH: Dad had hypertension Social Hx: Admits meth and THC, admits smoking 2 packs/week, states he has not used alcohol in the last 15 years cc:: cc: Carlos Sanabria MD Review of Systems Review of Systems Narrative Review of Systems: Constitutional: Denies sweats, Denies weight loss/gain, Denies fever, Denies chills. HEENT: Denies hearing loss, Denies ear pain, Denies postnasal drip, Denies double vision, Denies blurry vision. Respiratory: Admits shortness of breath, denies cough, Denies wheezing. Cardiovascular: Denies chest pain, denies palpitations, Denies sudden loss of consciousness. GI: Denies blood in stool, Denies constipation, Denies abdominal pain, Denies difficulty swallowing, Denies nausea/vomit. : Denies urinary incontinence, Denies pain while urinating, Denies increased urinary frequency. MSK: Denies joint pain, Denies joint swelling, Denies numbness, admits lower extremity swelling. Skin: Denies rash, Denies itching, Denies easy bruising. Neuro: Denies headaches, Denies dizziness, Denies seizures. Past Medical History Past Medical History Comments PMH COMMENT: PMH: meth use, HFpEF (50 to 55% on 2022), CKD, and hypertension FMH: Dad had hypertension Social Hx: Admits meth and THC, admits smoking 2 packs/week, states he has not used alcohol in the last 15 years Exam Vital Signs Temp Pulse Resp BP Pulse Ox O2 Del Method O2 Flow Rate 98.7 F 92 36 H 185/136 H 94 L Nasal Cannula 5 05/20/24 06:18 05/20/24 10:45 05/20/24 10:45 05/20/24 10:45 05/20/24 10:45 05/20/24 06:18 05/20/24 06:18 Narrative Exam General: A/O x3, mild distress, disheveled Eyes: PERRL, EOMI. icteric, vision grossly intact. Eyes bulging Ears: No ear pain, no ear discharge, Hearing grossly intact. Nose: No nasal discharge. Mouth/Throat: dry mucous membranes, no redness, no lesions. Neck: Neck supple, non-tender, no cervical lymphadenopathy. Lungs: Decreased in lower lobes, No accessory muscle use. Cardio: Normal S1/S2, regular rhythm, no murmurs, no JVD Abdomen: Soft, non-tender, no palpable masses, peristalsis present, no guarding or rebound. Extremities: Symmetrical, no significant deformities, 2+ peripheral edema , non-tender, peripheral pulses presents. Skin: No rashes, no lesions, warm to touch. Neuro: No focal neurological deficits. motor and sensory intact Results Labs 05/20/24 18:18 05/20/24 18:18 Labs: Short CBC 05/19/24 05/20/24 Range/Units 20:27 05:06 WBC 5.6 3.8 (3.8-10.6) Thou/mm3 Hgb 16.1 H 14.6 (13.5-16.0) g/dL Hct 47.1 42.6 (41.0-53.0) % Plt Count 213 181 D (140-440) Thou/mm3 BMP 05/19/24 05/20/24 20:27 05:06 Sodium 136 133 L Potassium 3.8 3.2 L D Chloride 96 L 98 Carbon Dioxide 23.3 21.9 BUN 26 H 35 H Creatinine 2.1 H 2.1 H Glucose 91 104 Calcium 9.8 8.8 Cardiac Enzymes 05/19/24 05/20/24 05/20/24 Range/Units 20:27 01:40 07:13 Troponin I 0.287 H* 0.366 H* 0.550 H* (0.0-0.045) ng/mL Liver Function 05/19/24 05/20/24 Range/Units 20:27 05:06 Total Bilirubin 4.3 H 3.9 H (0.3-1.2) mg/dL AST 86 H 112 H (0-34) U/L ALT 50 H 84 H (10-49) U/L Alkaline Phosphatase 122 H 108 (46-116) U/L Albumin 4.3 4.0 (3.5-5.0) gm/dL Urine 05/19/24 Range/Units 22:50 Urine Color Drk-Yellow A (Lt Yel-Yel) Urine Clarity Clear (Clear/Hazy) Urine pH 6.0 (5.0-7.0) Ur Specific [place] 1.025 (1.001-1.035) Urine Protein 3+ A (Neg - Trace) Urine Glucose (UA) Negative (Negative) Quality Measures Quality Measures VTE prophylaxis Medications Home Medications and Allergies Home Medications ?Medication ?Instructions ?Recorded ?Confirmed ?Type bumetanide 2 mg tablet 2 mg PO QDAY 12/05/23 12/17/23 History Allergies Allergy/AdvReac Type Severity Reaction Status Date / Time No Known Allergies Allergy Verified 12/05/23 10:13 Visit Medications Acetaminophen (Acetaminophen 325 Mg Tablet) 650 mg PO Q6H PRN PRN Reason: Pain 1-3 or Fever >100.3 Stop: 06/19/24 01:02 Amlodipine Besylate (Amlodipine Besylate 5 Mg Tablet) 10 mg PO QDAY [facility] Stop: 06/19/24 08:59 Last Admin: 05/20/24 10:40 Dose: 10 mg Bumetanide (Bumetanide Inj 0.25 Mg/Ml Vial 4 Ml) 2 mg IVP BID [facility] Stop: 06/19/24 09:29 Last Admin: 05/20/24 10:39 Dose: 2 mg Gabapentin (Gabapentin 300 Mg Capsule) 300 mg PO QDAY [facility] Stop: 06/19/24 08:59 Last Admin: 05/20/24 10:41 Dose: 300 mg Hydralazine HCl (Hydralazine Hcl 25 Mg Tablet) 50 mg PO TID [facility] Stop: 06/19/24 10:14 Last Admin: 05/20/24 10:39 Dose: 50 mg Labetalol HCl (Labetalol Inj 5 Mg/Ml Vial 20 Ml) 10 mg IVP Q6HR PRN PRN Reason: SBP >170 DBP>110 HR>80 Stop: 06/19/24 01:10 Last Admin: 05/20/24 03:15 Dose: 10 mg Nitroglycerin (Nitroglycerin 0.4 Mg Subl Btl #25) 0.4 mg SL Q5MIN PRN PRN Reason: CHEST PAIN Ondansetron HCl (Ondansetron Inj 2 Mg/Ml Inj 2 Ml) 4 mg IV Q6H PRN; Protocol PRN Reason: NAUSEA OR VOMITING Stop: 06/19/24 01:02 Sennosides (Senna Tablet) 1 tab PO QDAY [facility]; Protocol Stop: 06/19/24 08:59 Last Admin: 05/20/24 10:40 Dose: 1 tab Tamsulosin HCl (Tamsulosin Hcl 0.4 Mg Capsule) 0.4 mg PO HS [facility] Stop: 06/19/24 20:59 Discontinued Medications Bumetanide (Bumetanide 0.5 Mg Tablet) 2 mg PO BID [facility] Stop: 06/19/24 01:14 Last Admin: 05/20/24 03:09 Dose: 2 mg Bumetanide (Bumetanide Inj 0.25 Mg/Ml Vial 4 Ml) 2 mg IVP X1 ONE Stop: 05/20/24 09:26 Clonidine (Clonidine Hcl 0.1 Mg Tablet) 0.2 mg PO X1 ONE Stop: 05/19/24 23:23 Last Admin: 05/19/24 23:26 Dose: 0.2 mg Hydralazine HCl (Hydralazine Inj 20 Mg/Ml Vial) 20 mg IV X1 ONE Stop: 05/19/24 22:01 Last Admin: 05/19/24 22:12 Dose: 20 mg Labetalol HCl (Labetalol 100 Mg Tablet) 100 mg PO BID [facility] Stop: 06/19/24 08:59 Losartan Potassium (Losartan Potassium 25 Mg Tablet) 100 mg PO X1 ONE Stop: 05/19/24 22:01 Last Admin: 05/19/24 22:13 Dose: 100 mg Potassium Chloride (Potassium Chloride 20 Meq Tabcr) 40 meq PO X1 ONE Stop: 05/20/24 09:23 Last Admin: 05/20/24 10:47 Dose: 40 meq Potassium Chloride (Potassium Chloride 20 Meq Tabcr) 20 meq PO X1 ONE Stop: 05/20/24 11:01 Last Admin: 05/20/24 10:47 Dose: 20 meq Sevelamer Carbonate (Sevelamer Carbonate 800 Mg Tablet) 800 mg PO X1 ONE Stop: 05/20/24 10:19 Tamsulosin HCl (Tamsulosin Hcl 0.4 Mg Capsule) 0.4 mg PO QDAY [facility] Stop: 06/19/24 08:59 Assessment & Plan Plan 54-year-old male with past medical history of meth use, HFpEF (50 to 55% on 2022), CKD, and hypertension was admitted to the hospital on 05/20/2024 due to acute decompensated heart failure exacerbation. 1. Acute decompensated heart failure exacerbation (EF 50 to 55% on 2022) ?Patient came in with shortness of breath and bilateral lower extremity swelling ? Initial BNP was more than 3280 ? Patient has a history of HFpEF and states that he follows up with yard coupler in [place] ? Patient clinically looks fluid overloaded and having shortness of breath with having to stop in between sentences. ?Echo on 03/15/2023 had the following findings: Normal LV size and function. Moderate LVH. Diastolic dysfunction stage I. Estimated EF 50 to 55%. Normal RV size and function. Trace TR. Plan: ? Recommend to continue Bumex 2 mg twice daily ? Will follow-up on echo ? Strict WES's ? Daily weights ?Fluid restrictions ?Low-sodium diet ? Recommend to strictly replace potassium and magnesium to keep above 4 and 2 respectively to avoid any further arrhythmias 2. Hypertensive emergency 3. NSTEMI ?Patient's initial blood pressure was 217/126 ? Troponins were elevated at 0.287 on admission and up trended to 0.567 ?EKG did not show any acute ST changes ? NSTEMI most likely type II in the setting of acute decompensated heart failure exacerbation and hypertensive emergency Plan: ?Recommend to decrease blood pressure by 25% ?Recommend tight blood pressure control 4. Cirrhosis 5. Congestive hepatopathy 6. Ascites 7. Transaminitis 8. Hyperbilirubinemia ?Abdomen/pelvis CT shows cirrhosis and ascites ? Abdominal ultrasound showed cirrhosis ? AST 112, ALT 84 and 2 bilirubin 3.9 on admission ?Presents most likely on congestive hepatopathy most likely secondary to congestive heart failure ?Continue current management as per primary care team 9. CKD ? Initial creatinine was 2.1 and BUN 26 on admission ?Could be secondary to cardiorenal syndrome ? Continue current management as per primary care team 10. Polysubstance use (meth and THC) ? U tox was positive for meth and THC ? Continue current management as per primary care team Continue rest of management as per primary team. We are grateful to be able to participate in Mr. De's care. Thank you for the consult Plan of care discussed with attending Radiology Orderly, Dr Vero Jang MD PGY-1 Attending Provider Attestation/Addendum I have personally seen and examined the patient separately on the above date of service and discussed the plan of care with the resident. I reviewed the resident Dr. Pelayo consultation progress note and agree with the resident findings and plan in the note above and have also edited the documentation to reflect my findings and plan. A 54-year-old male with a past medical history of significant drug abuse including methamphetamine as well as marijuana use with last use of methamphetamine last week ago, HFrEF, presumed CKD stage III, hypertension, polycythemia, BPH on tamsulosin, history of [place] fever when he was a teenager, current smoker with more than 20 pack years of smoking history presented to the emergency department for further evaluation of progressive shortness of breath for the past few weeks to months to the point where he could barely speak secondary to the shortness of breath and hence came to the emergency department for further evaluation. In the emergency department patient was found to be hypertensive, tachycardic, hypoxic, and afebrile. Initial labs showed WBC 5.6, Hgb 16.1, D-dimer 1450, PT 14.9, INR 1.4, sodium 136, potassium 3.8, chloride 96, BUN 26, creatinine 2.1, magnesium 2.2, T bilirubin 4.3, AST 86, ALT 50, alkaline phosphatase 122, LDH 616, troponin 0.287 and up trended to 0.567, BNP more than 3280, UA positive for protein and blood, U tox was positive for marijuana and meth. Initial imaging included chest x-ray which shows some vascular congestion, abdomen ultrasound which showed cirrhosis and ascites, abdomen/pelvis CT which showed moderate cardiomegaly, cirrhosis, mild ascites, and mild thickening of the urinary bladder wall, and venous Doppler study did not show any DVTs. EKG which showed sinus tachycardia without any acute ST-T changes history of ischemia Echo on 03/15/2023 normal LV, RV size and function, moderate LVH, diastolic dysfunction stage I and estimated EF 50 to 55% with trace TR Overall patient presentation appears to be acute on chronic CHF exacerbation. Patient has been continuing to do methamphetamine abuse with the last dose few days ago and still continues to use marijuana and also continues to smoke. Patient apparently has been following up with a yard coupler in [place] and Dr. Stubbs who recently increase his Bumex to 2 mg once daily. Patient not very much compliant with his medications. As noted above NT proBNP was greater than 3280 along with elevated AST ALT along with bilirubin elevated at 4.3 and creatinine of 2.1 with BUN of 26. Patient mostly has severe acute congestive heart failure exacerbation with cardiorenal syndrome as well as hepatic congestion. Recommended aggressive diuresis with Bumex 2 mg IV twice daily for now. Strict input up to daily weights and 2 g odium diet. Fluid excision of 111 to 8 L/min. Continue to check potassium and magnesium and keep potassium greater than 4 magnesium greater than 2.0 at all times to avoid any kind of arrhythmias. Repeat echocardiogram ordered to rule out any kind of systolic dysfunction at the present point of time and also to evaluate the RV function. Patient troponins initially was 0.287 and trended up to 0.567. EKG did not show any acute ST-T changes history of ischemia. Patient did present with hypertensive emergency along with acute CHF exacerbation and troponin elevation mostly secondary to NSTEMI type II with supply/demand mismatch given his medical history. Recommend and presented for an NSTEMI if the troponin continues to rise otherwise recommend aspirin statin and beta-prasanna once CHF exacerbation improves. Recommend no further troponins at the present point of time. Patient is severely short of breath even while talking and has increased work of breathing and unfortunately decompensated later in the day requiring intubation and mechanical ventilation and patient was admitted to the ICU for further evaluation. Patient also noted to have elevated lactate with low bicarbonate admission and will need to rule out infection or sepsis. Patient counseled extensively regarding stopping the drug abuse including methamphetamine and marijuana as well as smoking. Remy Pham M.D. Interventional Cardiology
[2024-05-20] MEDS: SEVELAMER CARBONATE 800 MG TABLET PO (12:07)
[2024-05-20 14:21] LABS: Troponin I 0.567 ng/mL (0.0-0.045)
--- NOTE | 2024-05-20 15:06 | ESPR_ITS ---
<Statement entered by Julien Alas MD - 05/20/24 15:19> Patient was seen and examined at the bedside. Patient is admitted for acute hypoxic respiratory failure due to CHF exacerbation. Overnight, patient was given p.o. Bumex 2 mg twice daily which was switched to IV Bumex 2 twice daily. Patient reported that he has a history of heart failure and follows Dr. Stubbs, veterinary anatomist as outpatient but has not followed up lately. He has a history of drinking alcohol remotely in the past and actively smoking 1 pack of cigarettes in 5 days. U tox was positive for methamphetamines. Troponin I has been uptrending. 0.556. We consulted cardiology for further evaluation and will follow-up on echocardiogram. Continue IV diuresis and added nifedipine 30 mg 3 times daily for hypertensive emergency as his blood pressures consistently elevated. Stopped amlodipine and hydralazine for now due to reflex tachycardia. 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 Will likely avoid nephrotoxic agents and continue strict WES's with fluid restriction. CT abdomen pelvis showed cirrhosis of liver. Doppler ultrasound lower extremities was negative for DVT. All labs and orders were reviewed. I saw and examined the patient, and I agree with current management stated by Dr Fiorella MD,PGY1. Plan of care was discussed with the attending physician and resident physician. Disclaimer: Despite multiple revisions, due to the dictation software being used, the document bellow may not be free of grammatical errors including phonetic/typographic errors. However, this does not deter from our commitment to providing health care in the patient's best interest in mind. Dr. Evette MD, PGY 2 Documentation for date of: 05/20/24 Subjective Subjective Interval history: Patient is a 54-year-old male with a past medical history of hypertension, chronic kidney disease stage III, history of congestive heart failure HFpEF- diastolic dysfunction stage I 50 to 55% (03/15/2023), and history of polysubstance use disorder (meth/THC). Patient's troponins overnight uptrending per signout. Patient stated he was following Dr. Harmon for his heart but not sure if he had heart failure. Recently re-started medication for heart failure as he was non-adherent. Patient stated increased dyspnea, increased orthopnea, increased paroxysmal orthopnea, and worsening lower pedal edema now extending into scrotum region. Patient stated he recently used meth within the last couple days. Has been using meth off-and-on for several years. Positive for smoking history smokes 1 pack/week unsure of how long. Denied chest pain. Denied pyrexia or chills. Denied change in bowel movement. No recent sick contacts. Exam Vital Signs Temp Pulse Resp BP Pulse Ox O2 Del Method O2 Flow Rate 98.7 F 95 36 H 176/120 H 94 L Nasal Cannula 5 05/20/24 06:18 05/20/24 12:24 05/20/24 10:45 05/20/24 12:24 05/20/24 10:45 05/20/24 06:18 05/20/24 06:18 Narrative Exam General Appearance: Alert & Oriented X3, well-nourished male who is lying in bed in no acute distress, saturating well on N.C. and mild increased work of breathing, no MSK flaring noted. HEENT: Skull symmetrical and atraumatic. Conjunctivae pin and moist. Pupils equal, round, reactive to light and accommodation (PERRL). External ear without lesion or discharge. Straight, nares patient, dry mucosa pink, no discharge. No thyroid nodule appreciated. Cardio: Normal Rate and Rhythm with S1 and S2 heart sounds. No murmurs or extra heart sounds auscultated. No bruits on carotid auscultation. ANASARCA, swelling extending into scrotal region. Lungs: Symmetric with good expansion. Chest and back non-tender. Breath sounds vesicular with bilateral crackles. Abdomen: Non-tender, Non-distended, Normal Reactive Bowel Sounds Neuro: Alert, cooperative, oriented to person, place, and time. Speech clear. CN grossly intact. Upper motor strength 5/5 and Lower motor strength 5/5. Sensation intact. Objective Labs 05/21/24 04:55 05/21/24 04:55 Labs: Laboratory Results - last 24 hr 05/19/24 05/19/24 05/20/24 20:27 22:50 01:40 WBC 5.6 RBC 5.08 Hgb 16.1 H Hct 47.1 MCV 93 MCH 31.7 MCHC 34.2 RDW Std Deviation 49.8 H Plt Count 213 Neut % (Auto) 75 Lymph % (Auto) 8 L [place] % (Auto) 16 H Eos % (Auto) 0 Baso % (Auto) 0 Neut # (Auto) 4.2 Lymph # (Auto) 0.4 L [place] # (Auto) 0.9 H Eos # (Auto) 0.0 Baso # (Auto) 0.0 Immature Gran # (Auto) 0.06 H Absolute Nucleated RBC 0.00 Immature Gran % 1 H Nucleated RBC % 0 PT 14.9 H INR 1.4 H APTT 30.1 D-Dimer 1450 H Sodium 136 Potassium 3.8 Chloride 96 L Carbon Dioxide 23.3 Anion Gap 17 H BUN 26 H Creatinine 2.1 H Estim Creat Clear Calc 48.6 L eGFR 36 L BUN/Creatinine Ratio 12 Glucose 91 Calculated Osmolality 276 Calcium 9.8 Corrected Calcium 9.8 Phosphorus Magnesium 2.2 Total Bilirubin 4.3 H AST 86 H ALT 50 H Alkaline Phosphatase 122 H Lactate Dehydrogenase 616 H Troponin I 0.287 H* 0.366 H* B-Natriuretic Peptide > 3280 H* Total Protein 8.4 H Albumin 4.3 Globulin 4.1 H Albumin/Globulin Ratio 1.0 L Triglycerides Cholesterol LDL Cholesterol, Calc HDL Cholesterol Cholesterol/HDL Ratio TSH Ur Collection Type Clean Catch Urine Color Drk-Yellow A Urine Clarity Clear Urine pH 6.0 Ur Specific [place] 1.025 Urine Protein 3+ A Urine Glucose (UA) Negative Urine Ketones Trace Urine Blood 1+ A Urine Nitrite Negative Urine Bilirubin 1+ A Urine Urobilinogen (Auto) 8.0 Ur Leukocyte Esterase Negative Urine RBC 3 Urine WBC 0 Ur Squamous Epith Cells < 1 Urine Bacteria None Hyaline Casts 1 Urine Opiates Screen Negative Urine Fentanyl Screen Negative Ur Barbiturates Screen Negative U Amphetamin/Meth Scrn Positive A U Benzodiazepines Scrn Negative U Cocaine Metab Screen Negative U Marijuana (THC) Screen Positive A Ethyl Alcohol < 3.0 Hepatitis A IgM Ab Hep Bs Antigen Hep B Core IgM Ab Hepatitis C Antibody 05/20/24 05/20/24 05/20/24 05:06 07:13 09:41 WBC 3.8 RBC 4.62 Hgb 14.6 Hct 42.6 MCV 92 MCH 31.6 MCHC 34.3 RDW Std Deviation 48.5 H Plt Count 181 D Neut % (Auto) 61 Lymph % (Auto) 17 [place] % (Auto) 21 H Eos % (Auto) 0 Baso % (Auto) 0 Neut # (Auto) 2.4 Lymph # (Auto) 0.6 L [place] # (Auto) 0.8 Eos # (Auto) 0.0 Baso # (Auto) 0.0 Immature Gran # (Auto) 0.03 H Absolute Nucleated RBC 0.00 Immature Gran % 1 H Nucleated RBC % 0 PT INR APTT D-Dimer Sodium 133 L Potassium 3.2 L D Chloride 98 Carbon Dioxide 21.9 Anion Gap 13 BUN 35 H Creatinine 2.1 H Estim Creat Clear Calc 48.6 L eGFR 36 L BUN/Creatinine Ratio 17 Glucose 104 Calculated Osmolality 274 L Calcium 8.8 Corrected Calcium 8.8 Phosphorus 5.3 H Magnesium 2.1 Total Bilirubin 3.9 H AST 112 H ALT 84 H Alkaline Phosphatase 108 Lactate Dehydrogenase Troponin I 0.550 H* B-Natriuretic Peptide Total Protein 7.4 Albumin 4.0 Globulin 3.4 Albumin/Globulin Ratio 1.2 Triglycerides 71 Cholesterol 92 L LDL Cholesterol, Calc 49 HDL Cholesterol 29 L Cholesterol/HDL Ratio 3.2 L TSH 2.39 Ur Collection Type Urine Color Urine Clarity Urine pH Ur Specific [place] Urine Protein Urine Glucose (UA) Urine Ketones Urine Blood Urine Nitrite Urine Bilirubin Urine Urobilinogen (Auto) Ur Leukocyte Esterase Urine RBC Urine WBC Ur Squamous Epith Cells Urine Bacteria Hyaline Casts Urine Opiates Screen Urine Fentanyl Screen Ur Barbiturates Screen U Amphetamin/Meth Scrn U Benzodiazepines Scrn U Cocaine Metab Screen U Marijuana (THC) Screen Ethyl Alcohol Hepatitis A IgM Ab Non Reactive Hep Bs Antigen Non Reactive Hep B Core IgM Ab Non Reactive Hepatitis C Antibody Non Reactive 05/20/24 13:40 WBC RBC Hgb Hct MCV MCH MCHC RDW Std Deviation Plt Count Neut % (Auto) Lymph % (Auto) [place] % (Auto) Eos % (Auto) Baso % (Auto) Neut # (Auto) Lymph # (Auto) [place] # (Auto) Eos # (Auto) Baso # (Auto) Immature Gran # (Auto) Absolute Nucleated RBC Immature Gran % Nucleated RBC % PT INR APTT D-Dimer Sodium Potassium Chloride Carbon Dioxide Anion Gap BUN Creatinine Estim Creat Clear Calc eGFR BUN/Creatinine Ratio Glucose Calculated Osmolality Calcium Corrected Calcium Phosphorus Magnesium Total Bilirubin AST ALT Alkaline Phosphatase Lactate Dehydrogenase Troponin I 0.567 H* B-Natriuretic Peptide Total Protein Albumin Globulin Albumin/Globulin Ratio Triglycerides Cholesterol LDL Cholesterol, Calc HDL Cholesterol Cholesterol/HDL Ratio TSH Ur Collection Type Urine Color Urine Clarity Urine pH Ur Specific [place] Urine Protein Urine Glucose (UA) Urine Ketones Urine Blood Urine Nitrite Urine Bilirubin Urine Urobilinogen (Auto) Ur Leukocyte Esterase Urine RBC Urine WBC Ur Squamous Epith Cells Urine Bacteria Hyaline Casts Urine Opiates Screen Urine Fentanyl Screen Ur Barbiturates Screen U Amphetamin/Meth Scrn U Benzodiazepines Scrn U Cocaine Metab Screen U Marijuana (THC) Screen Ethyl Alcohol Hepatitis A IgM Ab Hep Bs Antigen Hep B Core IgM Ab Hepatitis C Antibody Quality Measures Quality Measures VTE prophylaxis Assessment & Plan Assessment Current Active Medications: Generic Name Dose Route Start Last Admin Trade Name Freq PRN Reason Stop Dose Admin Acetaminophen 650 mg 05/20/24 01:03 Acetaminophen 325 Mg Tablet PO 06/19/24 01:02 Q6H PRN Pain 1-3 or Fever >100.3 Amlodipine Besylate 10 mg 05/20/24 09:00 05/20/24 10:40 Amlodipine Besylate 5 Mg Tablet PO 06/19/24 08:59 10 mg QDAY MICAH Administration Bumetanide 2 mg 05/20/24 09:30 05/20/24 10:39 Bumetanide Inj 0.25 Mg/Ml Vial 4 Ml IVP 06/19/24 09:29 2 mg BID MICAH Administration Gabapentin 300 mg 05/20/24 09:00 05/20/24 10:41 Gabapentin 300 Mg Capsule PO 06/19/24 08:59 300 mg QDAY MCIAH Administration Hydralazine HCl 50 mg 05/20/24 10:15 05/20/24 10:39 Hydralazine Hcl 25 Mg Tablet PO 06/19/24 10:14 50 mg TID MICAH Administration Labetalol HCl 10 mg 05/20/24 01:11 05/20/24 12:24 Labetalol Inj 5 Mg/Ml Vial 20 Ml IVP 06/19/24 01:10 10 mg Q6HR PRN Administration SBP >170 DBP>110 HR>80 Nitroglycerin 0.4 mg 05/20/24 09:30 Nitroglycerin 0.4 Mg Subl Btl #25 SL Q5MIN PRN CHEST PAIN Ondansetron HCl 4 mg 05/20/24 01:03 Ondansetron Inj 2 Mg/Ml Inj 2 Ml IV 06/19/24 01:02 Q6H PRN NAUSEA OR VOMITING Protocol Sennosides 1 tab 05/20/24 09:00 05/20/24 10:40 Senna Tablet PO 06/19/24 08:59 1 tab QDAY MICAH Administration Protocol Tamsulosin HCl 0.4 mg 05/20/24 21:00 Tamsulosin Hcl 0.4 Mg Capsule PO 06/19/24 20:59 HS MICAH Plan Patient is a 54-year-old male with a past medical history of hypertension, chronic kidney disease stage III, history of congestive heart failure HFpEF- diastolic dysfunction stage I 50 to 55% (03/15/2023), and history of polysubstance use disorder (meth/THC). #Acute Hypoxic Respiratory Failure #Acute CHF exacerbation #CHF, HFpEF 50-55% (2022) #Troponemia #NSTEMI type II demand ischemia likely Etiology: past medical history of heart failure, patient has been non-adherent with medication and extensive history of polysubstance use likely worsening heart ejection fraction. Cxr shows vascularization and BNP >3280. Work towards GDMT. DDx: elevated troponins likely secondary to demand ischemia as no ST elevation was noted on EKG. Per cardiology, no heparin recommended at this time vs PE less likely as no history of DVT, not hypertensive, and no tachycardia. Wells Score 0. Diagnostics: Chest Xray: Mild vascular congestion EKG: sinus tachy, possible bundle branch block QRS 120 Troponins 0.093, 0.110, 0.287, 0.366, 0.550, 0.567 Triglycerides 71, Cholesterol 92, LDL 49, HDL 29 TSH 2.39 (03/16/2023): A1c 5.3 NYHA Class: likely III Well's Score 0 Plan: -Bumex 1 mg IV QDay -Potassium repleted -Echo -K>4 and Mg >2 -Fluid Restriction and Sodium Restriction 2 g per day -SpO <90%, support PRN -Daily Weights, Strict Ins and Outs, Fluid Striction (1500 ml), Sodium Restriction 2 grams per day -Cardiology Consult, appreciate recommendations. #Hypertensive Emergency #Hypertensive History of hypertension and likely hypertensive emergency given CHF with elevated troponins Plan -Hydralazine 50 PO TID-->Nifedipine 30 mg TID #Acute on Chronic Kidney Disease #CKD III Etiology: Past medical history of CKD, likely prenal that progressed to intrinsic failure given CKD. Given BUN/CR ration of 17, consider worsening intrinsic injury secondary to cardio-renal vs post obstructive given history of BPH. Diagnostics: GFR 44 and Cr 1.8 (11/26/2023)--->BUN 35Cr 2.1, GFR 36, BUN/ Cr 17 Plan -Really dose medication -Avoid nephrotoxins -Sevelamer #Polysubstance Use Disorder #Acitve Smoker History of Meth Use disorder, tested positive for THC and Meth on admission. Plan -declined nicotine patch -consider social media developer. #Transaminitis #Hyperbilirubinemia Previous admission, patient had a T. bili of 4.3 which is elevated from last admission as well as slightly elevated AST and ALT, ALP and LDH. PMH of alcohol use disorder. Denied any cocaine use or needles. Consider MASH vs Hepaitis vs history of alcohol use disorder. Ischemic Hepaitis can not be rule out given CHF history. Diagnostics: US Liver: Negative for cholelithiasis Fluid around the gallbladder wall, however the patient has ascites, clinical. correlation advised, consider HIDA scan follow-up as clinically warranted Cirrhosis CT Abdomen (05/20/2024): Moderate cardiomegaly. Cirrhosis. MIld Ascities. No renal or ureteral calculi, no hydronephrosis. no bowel obstruciton. Mild thickening urinary bladder wall, consider cystitis. Total bili 3.9, AST 112, ALT 84 Hep: negative Plan: -Consider GGT -Continue to monitor LFTs BPH Possible history of BPH Plan -restart home medication of Tamsulosin Health Maintenance: Disp: Pt is currently admitted to floors for further management of Acute CHF exacerbation , awaiting echo FEN: Cardiac, 2 gram restricted. DVT: on subQ heparin Code: Full/DNR - The patient's plan was discussed with attending Dr. Matute and senior residents Dr. Evette Barros MD PGY1 Internal Medicine Attending Provider Attestation/Addendum I, Luana Matute, DO, attest that I was physically present for the carbajal portions of the service and evaluated the patient with the resident and I reviewed and discussed the case with the resident and agree with the resident's findings and plans of care as documented above Patient seen and evaluated in ER this morning at 11:30 AM. is at bedside. Patient reports using marijuana and methamphetamine. He recently saw his veterinary anatomist last week during which his Bumex dose outpatient was increased. states that he barely started the increase in dosage. However, lower extremity edema has been worsening for the past week. states that the patient has not been compliant with his medications. He denies any active chest pain but endorses shortness of breath, dyspnea on exertion and orthopnea. He states that the swelling has been ascending up to his abdomen and he states that he is feeling bloated. He denies any fevers or chills otherwise. Patient continues to smoke tobacco about 5 cigarettes daily and denies any active alcohol use. Troponin has been uptrending and currently at 0.556. He continues to have resistant hypertension despite receiving labetalol. On exam he has noted to have 3+ pitting edema bilateral lower extremities. Will continue with IV diuresis and increase nifedipine dose to 30 mg 3 times a day. Patient refused Garcia catheter due to discomfort. Will continue with strict I's and O's. D-dimer was noted to be elevated at 1450. Will obtain ultrasound of bilateral lower extremities to rule out DVT. Due to CKD, patient is not a candidate for CTA at this time. At 4:40 PM, was called to bedside as patient was noted to be unresponsive. At the time, heart rate was noted to be in the 60s to 70s with a blood pressure of 88/56 and O2 saturation of 82%. Last documented blood pressure was 171/118 1547. Patient was not arousable despite sternal rub. Mother was at bedside at that time and stated that the patient has been very noncompliant. His brother also states that they are all aware that the patient has been a chronic methamphetamine user. Patient was given 1 L IV fluid bolus due to hypotension. Decision was made to intubate patient for airway protection due to acute hypoxic respiratory failure and obtundation. ICU was consulted. Stat EKG and CT head were ordered. Lactic acid was noted to be 5. Repeat labs and troponins were ordered.
[2024-05-20] MEDS: NIFEdipine 10 MG CAPSULE 30 MG PO (15:47)
--- NOTE | 2024-05-20 16:33 | XR_ITS ---
Examination: AP chest single view Technique: AP portable semiupright chest single view Exam date and time: May 20, 2024 1645 hrs. Comparison May 19, 2024 Indications: Shortness of breath acute hypoxic respiratory failure today. Findings: Moderate enlargement cardiac contour Mild to moderate vascular congestion. No lobar pneumonia Impression: Moderate enlargement cardiac contour Mild to moderate vascular congestion
--- NOTE | 2024-05-20 16:40 | EVENTNT_ITS ---
<Statement entered by Julien Alas MD - 05/21/24 09:43> RN called that the patient is altered and is desatting approximately at 4:40 PM. Earlier this morning, patient was saturating 5 L nasal cannula saturating 90%. His blood pressure was in 200 for SBP. He suddenly became altered and started desaturating. Patient was started on bagging and was intubated for airway pro tection and desaturation/hypoxia in 80s. Patient was given nifedipine 30 mg and after that his blood pressure dropped down to 88/60 mmHg. Patient was bradycardic during difficult intubation. He was started on sedation with propofol and fentanyl by ICU resident. He is also started on Levophed for hypotension.Stat EKG, lactic acid troponin I was ordered. Patient was given 1 L bolus of NS x 1. Lactic acid up trended. Cardiology was updated regarding patient upgraded to ICU. ICU team was given a signout. Patient is upgraded to ICU. I saw and examined the patient, and I agree with current management stated by Dr Fiorella MD,PGY1. Plan of care was discussed with the attending physician and resident physician. Disclaimer: Despite multiple revisions, due to the dictation software being used, the document bellow may not be free of grammatical errors including phonetic/typographic errors. However, this does not deter from our commitment to providing health care in the patient's best interest in mind. Dr. Evette MD, PGY 2 Documentation for date of: 05/20/24 Event Note Event Note: Rapid Event Rapid event called approximately 4: 40 p.m. from ER for altered mental status Patient was examined at bedside. Unable to protect airway, acute encephalopathy. Nonresponsive to painful stimuli. Increased work of breathing. Pulses +1. Uptrending troponins. Previous EKG no ST elevation on admission. During morning rounding, patient patient denied chest pain. Stated meth use within the last 3 days. Cardiology consulted and nephro consulted on admission. Patient recently switched over from hydralazine p.o. to nifedipine p.o. for continued hypertension. Vitals: BP 89/65; MAP 24; heart rate 88 GCS: 3 Cxr, EKG, Lactic, bolus 1 NS likely ICU upgrade - The patient's plan was discussed with attending Dr. Matute and senior residents Dr. Evette Barros MD PGY1 Internal Medicine
--- NOTE | 2024-05-20 16:55 | PC.NURSE ---
Assumed care at this time, as pt needed to be moved to this RNs room for intubation. pt had decline in mentation, however maintains airway and o2 sats upon assumption of care.
--- NOTE | 2024-05-20 16:57 | XR_ITS ---
Acromioclavicular joints examination: AP chest single view Technique: AP portable supine chest single view Exam date and time: 12/19/2023 1728 hrs. Comparison May 20, 2024 1645 hrs. Indications: Hypoxic respiratory failure postintubation Findings: Mild to moderate enlargement cardiac contour with vascular congestion Endotracheal tube tip 7.9 cm above lisa The orogastric tube is in the stomach, the tip is below the level of the film Impression: Interval endotracheal tube placement, tip 7.9 cm above lisa Interval orogastric tube placement in the stomach, the tip is below the level of the film
[2024-05-20] MEDS: ETOMIDATE INJ 2 MG/ML VIAL 10 ML 20 MG IVP ×2 (16:58→17:15)
--- NOTE | 2024-05-20 16:58 | PC.CC ---
Pt Lex De is a 54 yr old male admitted to hospitalist services for Acute hypoxic respiratory failure, and acute decompensated heart disease. 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 At time of encounter pt is noted to be alert and oriented to person, place and situation. Pt expressed understanding admission orders. Pt able to confirm all demographic information. Pt is from home [address] [place] [address]. Per pt he lives in the home with his life partner Hanane Rosado [phone], pt identifies Ms. Rosado as surrogate DM. At baseline pt reports being independent with ambulation and with completion of his ADLs. Per pt he does not require supplemental O2 in the home. In the ED pt on 4L NC. Per pt he is not diabetic and is not on dialysis. Pts primary provider is Dr. Hernandez. At time of D/c pt would like to return home with family providing transport. Pt provided copy of Advance Directive per his request. SS referral for pt with hx of methamphetamine use. Pt toxicology screening positive at admission.
[2024-05-20] MEDS: SUCCINYLCHOLINE INJ 20 MG/ML VIAL 10 ML 100 MG IV (16:59)
[2024-05-20] MEDS: fentaNYL 2,500 MCG/250 ML BAG 2,500 MCG/250 ML BAG IV (17:25)
[2024-05-20] MEDS: LORazepam 2 MG/ML VIAL 1 MG IVP (17:33)
[2024-05-20] MEDS: PROPOFOL 1,000 MG IVPB 1,000 MG/100 ML VIAL 2.994 MG IV (17:39)
--- NOTE | 2024-05-20 17:40 | PD.RESPROC ---
Procedures Procedure Date / Time 05/20/24 17:20 Intubation Indication(s): acute Resp Failure and inability to protect airway Informed consent obtained: procedure done urgently Time out done, and the following verified: correct patient, side and site, procedure, patient position and implants and/or equipment Sedative: etomidate Mg given: 20 Paralytic: succinylcholine Mg given: 100 Laryngoscope: fiber optic video scope Assist device used: fiber optic device ET tube size: 7.5 ET tube uncuffed: No Tube secured depth (cm): 23 Tube secured location: teeth Tube placement confirmation: visualized tube passing through cords, equal breath sounds bilaterally, no breath sounds over epigastrium and confirmation by capnometry Patient tolerated procedure: well EBL(ml): 0 Intubation complications: none
[2024-05-20] MEDS: Norepinephrine/D5W 8mg/250ml 8 MG/250 ML BAG 9.355 MG IV (17:43)
[2024-05-20 17:58] LABS: Base Excess -6 (-3-3); HCO3 19 mEq/L (20-26); Inspired Oxygen, FIO2 100 %; O2 Saturation 101 % (91-98); PCO2 33 mmHg (32.0-48.0); PO2 375 mmHg (83-108); pH, Arterial 7.36 (7.35-7.45)
[2024-05-20 18:02] LABS: Allen Test Performed/OK; Puncture Site Right Radial
[2024-05-20] MEDS: CALCIUM CHLORIDE 10% INJ 10 ML SYRG IV (18:24)
[2024-05-20 18:27] LABS: Basophils % (Auto) 1 % (0-2.5); Eosinophils % (Auto) 0 % (0-10); Hematocrit 46.1 % (41.0-53.0); Hemoglobin 15.5 g/dL (13.5-16.0); Immature Granulocytes % (Auto) 1 % (0-0); Immature Granulocytes Auto 0.03 Thou/mm3 (0.00-0.00); Lymphocytes # (Auto) 1.3 Thou/mm3 (1.0-4.8); Lymphocytes % (Auto) 34 % (10-50); Mean Corpuscular HGB Conc 33.6 g/dl (31.0-37.0); Mean Corpuscular Hemoglobin 31.8 pg (25.0-35.0); Mean Corpuscular Volume 95 fL (80-100); Monocytes # (Auto) 0.8 Thou/mm3 (0.0-0.8); Monocytes % (Auto) 20 % (0-12); Neutrophils # (Auto) 1.7 Thou/mm3 (1.8-7.7); Neutrophils % (Auto) 45 % (37-80); Nucleated Red Blood Cell % 0 /100 WBC (0); Platelet Count 188 Thou/mm3 (140-440); RDW Standard Deviation 51.2 fL (35.1-43.9); Red Blood Count 4.88 Miln/mm3 (4.50-5.90); White Blood Count 3.9 Thou/mm3 (3.8-10.6)
--- NOTE | 2024-05-20 18:27 | PC.RT ---
fount pt with a tidal volume set at 700 which is 9-10mg/kg. worries of barotrauma. plus pt's blood pressure is low and cadiac output is significantly decreased with such large volumes. With Dr Zambrano's approval tidal volume decreased to 575 with is approx 7 ml/kg
[2024-05-20 18:48] LABS: Alanine Aminotransferase 127 U/L (10-49); Albumin, Serum 3.9 gm/dL (3.5-5.0); Alkaline Phosphatase 108 U/L (46-116); Anion Gap 18 (7-16); Aspartate Amino Transferase 159 U/L (0-34); BUN/Creatinine Ratio 14 Ratio (12-20); Bilirubin,Total 3.6 mg/dL (0.3-1.2); Blood Urea Nitrogen 33 mg/dL (9-23); Calcium 8.2 mg/dL (8.3-10.6); Calcium (Corrected) 8.3 mg/dL (8.5-10.1); Carbon Dioxide 16.5 mMol/L (20.0-31.0); Chloride 98 mMol/L (98-107); Creatinine (Component) 2.4 mg/dL (0.6-1.3); Estimated Creatinine Clearance 42.5 mL/min (>60); Globulin 3.8 gm/dL (2.3-3.5); Glucose 93 mg/dL (74-106); Magnesium 2.2 mg/dL (1.6-2.6); Osmolality,Calculated 271 (275-295); Phosphorous 5.7 mg/dL (2.4-5.1); Potassium 3.9 mMol/L (3.4-5.1); Sodium 132 mMol/L (136-145); Total Protein 7.7 gm/dL (5.7-8.2); eGFR 31 See Note
[2024-05-20] MEDS: RINGERS LACTATED 1000 ML 1,000 ML 999 ML IV (18:48)
[2024-05-20] MEDS: Calcium Chloride 10% Inj 10 ML in SODIUM CHLORIDE 0.9% 100 ML 110 ML IV ×2 (18:48→19:48)
[2024-05-20 18:51] LABS: Troponin I 0.621 ng/mL (0.0-0.045)
--- NOTE | 2024-05-20 19:35 | ESCONSULT_ITS ---
<Statement entered by Nata Leahy MD - 05/21/24 11:40> TOTAL CC TIME: 45 MIN I saw and evaluated the patient. I reviewed the resident?s note and agree with findings and plan as documented in the resident?s note. Upon my evaluation, this patient had a high probability of imminent or life- threatening deterioration due to acute hypoxic respiratory failure, distributive shock, which required my direct attention, intervention, and personal management. This time is exclusive of time spent on procedures, which are documented separately if performed. Patient was initially admitted to the medical surgical attending for hypertensive emergency. Past medical history of chronic renal disease and alcoholic cirrhosis. The patient initially presented to the emergency department for shortness of breath and required 5 L of supplemental oxygen due to pulmonary edema from diastolic heart failure exacerbation due to hypertensive emergency. After receiving multiple doses of antihypertensives the patient's blood pressure dropped and he became obtunded which subsequently resulted in him being intubated. The ICU was consulted and calcium channel prasanna reversal was started with appropriate resuscitation using IV fluids as well as calcium gluconate. The patient was placed on Levophed and and the blood pressure improved as did the mental status. Pulmonary edema will be managed with diuretics. Wean for mechanical ventilation as tolerated HPI Data of Consult Requesting Physician: Carlos Sanabria MD Admitting Provider: Carlos Sanabria MD Attending Provider: Carlos Sanabria MD Primary Care Provider: Mateo Hernandez MD Consult Narrative History of present illness: The patient is a 54-year-old male with significant past medical history of HTN, CKD, HFpEF LVEF 50 to 55% in 2022, methamphetamine use who presented to ED on 05/19/2024 with chief complaint of SOB, was presumed to be on acute decompensated CHF, was diuresed with IV Bumex 2 Mg twice daily, and as per nurse in the ED the patient was diuresing well. The patient was saturating well with 4 to 5 L NC, and as patient had presented with hypertensive emergency with troponin leak's as possible endorgan damage, antihypertensive medications were given which initially decreased the blood pressure down gradually from 217/126 to 162/94, and then blood pressure started trending up and was fluctuating between 160 to 180. At 1743 the patient received nifedipine 30 Mg and blood pressure tanked to 84/65. There was deterioration in patient's mentation, and the patient was intubated to protect airway. The patient was upgraded to ICU for further management. During evaluation, patient blood pressure was 96/63, and heart rate in the 70s. And was on Levophed drip, fentanyl and propofol drip for sedation. Labs are significant for stable CBC, blood gas with pH 7.36, pCO2 33, chemistry panel was significant for lactic acid 5.0, sodium 132, bicarb 16.5, BUN 33, creatinine 2.4, corrected calcium 8.3, total bilirubin 3.6, AST/ALT 159/127 and troponin trending up to 0.621. PMH: As mentioned above Family history: Hypertension in father Social history: Admitted meth and marijuana use, smoking 2 packs/week, past alcohol user but has not used it in the last 15 years. Surgical history: Unremarkable Patient was given total 3 doses of 1 g calcium chloride for calcium channel prasanna reversal. cc:: cc: Carlos Sanabria MD Review of Systems Review of Systems ROS Unobtainable: unobtainable due to mental status and due to endotracheal tube Exam Vital Signs Temp Pulse Resp BP Pulse Ox O2 Del Method O2 Flow Rate 98.8 F 80 31 H 139/88 H 97 Room Air 5 05/20/24 18:21 05/20/24 19:10 05/20/24 19:10 05/20/24 19:10 05/20/24 19:10 05/20/24 18:21 05/20/24 06:18 FiO2 100 05/20/24 18:30 Narrative Exam General:Sedated, intubated and mechanically ventillated HEENT: Moist mucous membranes, oropharynx clear Neck: Supple, No masses, No JVD CVS: S1S2 Regular rate and rhythm, No murmurs, rubs or gallops Lungs: Clear to auscultation with no accessory use, no wheeze no rhonchi Abd: Soft, NT/ND, +BS, no organomegaly Ext: 1+ LL pitting edema, warm and well perfused Skin: Darkening of BL LL below knee Neuro: Unobtainable Psych: Unobtainable Results Labs 05/20/24 18:18 05/20/24 18:18 Labs: Short CBC 05/19/24 05/20/24 05/20/24 Range/Units 20:27 05:06 18:18 WBC 5.6 3.8 3.9 (3.8-10.6) Thou/mm3 Hgb 16.1 H 14.6 15.5 (13.5-16.0) g/dL Hct 47.1 42.6 46.1 (41.0-53.0) % Plt Count 213 181 D 188 (140-440) Thou/mm3 BMP 05/19/24 05/20/24 05/20/24 20:27 05:06 18:18 Sodium 136 133 L 132 L Potassium 3.8 3.2 L D 3.9 D Chloride 96 L 98 98 Carbon Dioxide 23.3 21.9 16.5 L BUN 26 H 35 H 33 H Creatinine 2.1 H 2.1 H 2.4 H Glucose 91 104 93 Calcium 9.8 8.8 8.2 L Cardiac Enzymes 05/19/24 05/20/24 05/20/24 Range/Units 20:27 01:40 07:13 Troponin I 0.287 H* 0.366 H* 0.550 H* (0.0-0.045) ng/mL 05/20/24 05/20/24 Range/Units 13:40 18:18 Troponin I 0.567 H* 0.621 H* (0.0-0.045) ng/mL Liver Function 05/19/24 05/20/24 05/20/24 Range/Units 20:27 05:06 18:18 Total Bilirubin 4.3 H 3.9 H 3.6 H (0.3-1.2) mg/dL AST 86 H 112 H 159 H (0-34) U/L ALT 50 H 84 H 127 H (10-49) U/L Alkaline Phosphatase 122 H 108 108 (46-116) U/L Albumin 4.3 4.0 3.9 (3.5-5.0) gm/dL Urine 05/19/24 Range/Units 22:50 Urine Color Drk-Yellow A (Lt Yel-Yel) Urine Clarity Clear (Clear/Hazy) Urine pH 6.0 (5.0-7.0) Ur Specific [place] 1.025 (1.001-1.035) Urine Protein 3+ A (Neg - Trace) Urine Glucose (UA) Negative (Negative) ABG Interpretation ABG results: 05/20/24 17:52 ABG pH 7.36 ABG pCO2 33 ABG pO2 375 H ABG HCO3 19 L ABG O2 Saturation 101 H ABG Base Excess -6 L Quality Measures Quality Measures VTE prophylaxis Medications Home Medications and Allergies Home Medications ?Medication ?Instructions ?Recorded ?Confirmed ?Type bumetanide 2 mg tablet 2 mg PO QDAY 12/05/23 12/17/23 History Allergies Allergy/AdvReac Type Severity Reaction Status Date / Time No Known Allergies Allergy Verified 12/05/23 10:13 Visit Medications Acetaminophen (Acetaminophen 325 Mg Tablet) 650 mg PO Q6H PRN PRN Reason: Pain 1-3 or Fever >100.3 Stop: 06/19/24 01:02 Bumetanide (Bumetanide Inj 0.25 Mg/Ml Vial 4 Ml) 2 mg IVP BID [facility] Stop: 06/19/24 09:29 Last Admin: 05/20/24 10:39 Dose: 2 mg Gabapentin (Gabapentin 300 Mg Capsule) 300 mg PO QDAY [facility] Stop: 06/19/24 08:59 Last Admin: 05/20/24 10:41 Dose: 300 mg Fentanyl Citrate (Sublimaze Inj 2,500 Mcg/250 Ml Bag) 2,500 mcg in 250 mls @ 2.5 mls/hr IV .Q24H PRN; Protocol PRN Reason: PER PROTOCOL Stop: 05/25/24 16:55 Last Titration: 05/20/24 19:10 Dose: 100 mcg/hr, 10 mls/hr Propofol (Diprivan Ivpb) 1,000 mg in 100 mls @ 2.994 mls/hr IV .Q24H PRN; Protocol PRN Reason: PER PROTOCOL Stop: 06/19/24 16:55 Last Titration: 05/20/24 19:10 Dose: 25 mcg/kg/min, 14.969 mls/hr Norepinephrine/Dextrose (Levophed In D5w 8mg/250ml) 8 mg in 250 mls @ 9.355 mls/hr IV .Q24H PRN; Protocol PRN Reason: PER PROTOCOL Stop: 06/19/24 17:25 Last Titration: 05/20/24 19:20 Dose: 0.25 mcg/kg/min, 46.777 mls/hr Labetalol HCl (Labetalol Inj 5 Mg/Ml Vial 20 Ml) 10 mg IVP Q6HR PRN PRN Reason: SBP >170 DBP>110 HR>80 Stop: 06/19/24 01:10 Last Admin: 05/20/24 12:24 Dose: 10 mg Nitroglycerin (Nitroglycerin 0.4 Mg Subl Btl #25) 0.4 mg SL Q5MIN PRN PRN Reason: CHEST PAIN Ondansetron HCl (Ondansetron Inj 2 Mg/Ml Inj 2 Ml) 4 mg IV Q6H PRN; Protocol PRN Reason: NAUSEA OR VOMITING Stop: 06/19/24 01:02 Sennosides (Senna Tablet) 1 tab PO QDAY [facility]; Protocol Stop: 06/19/24 08:59 Last Admin: 05/20/24 10:40 Dose: 1 tab Tamsulosin HCl (Tamsulosin Hcl 0.4 Mg Capsule) 0.4 mg PO HS [facility] Stop: 06/19/24 20:59 Discontinued Medications Amlodipine Besylate (Amlodipine Besylate 5 Mg Tablet) 10 mg PO QDAY [facility] Stop: 06/19/24 08:59 Last Admin: 05/20/24 10:40 Dose: 10 mg Bumetanide (Bumetanide 0.5 Mg Tablet) 2 mg PO BID [facility] Stop: 06/19/24 01:14 Last Admin: 05/20/24 11:11 Dose: Not Given Bumetanide (Bumetanide Inj 0.25 Mg/Ml Vial 4 Ml) 2 mg IVP X1 ONE Stop: 05/20/24 09:26 Calcium Chloride (Calcium Chloride 10% Inj 10 Ml Syrg) 10 ml IV X1 ONE Stop: 05/20/24 17:56 Last Admin: 05/20/24 18:24 Dose: 10 ml Clonidine (Clonidine Hcl 0.1 Mg Tablet) 0.2 mg PO X1 ONE Stop: 05/19/24 23:23 Last Admin: 05/19/24 23:26 Dose: 0.2 mg Etomidate (Etomidate Inj 2 Mg/Ml Vial 10 Ml) 20 mg IVP X1 ONE Stop: 05/20/24 16:55 Last Admin: 05/20/24 16:58 Dose: 20 mg Etomidate (Etomidate Inj 2 Mg/Ml Vial 10 Ml) 20 mg IVP X1 ONE Stop: 05/20/24 17:46 Last Admin: 05/20/24 17:15 Dose: 20 mg Hydralazine HCl (Hydralazine Inj 20 Mg/Ml Vial) 20 mg IV X1 ONE Stop: 05/19/24 22:01 Last Admin: 05/19/24 22:12 Dose: 20 mg Hydralazine HCl (Hydralazine Hcl 25 Mg Tablet) 50 mg PO TID [facility] Stop: 06/19/24 10:14 Last Admin: 05/20/24 15:44 Dose: Not Given Lactated Ringer's (Lactated Ringers) 1,000 mls @ 999 mls/hr IV .Q1H1M ONE Stop: 05/20/24 19:07 Last Admin: 05/20/24 18:48 Dose: 999 mls/hr Calcium Chloride 10 ml/ Sodium (Chloride) 110 mls @ 110 mls/hr IV X1 ONE Stop: 05/20/24 18:44 Last Admin: 05/20/24 18:48 Dose: 110 mls/hr Calcium Chloride 10 ml/ Sodium (Chloride) 110 mls @ 110 mls/hr IV X1 ONE Stop: 05/20/24 19:17 Labetalol HCl (Labetalol 100 Mg Tablet) 100 mg PO BID [facility] Stop: 06/19/24 08:59 Last Admin: 05/20/24 11:11 Dose: Not Given Lorazepam (Lorazepam 2 Mg/Ml Vial) 1 mg IVP X1 ONE Stop: 05/20/24 17:31 Last Admin: 05/20/24 17:33 Dose: 1 mg Losartan Potassium (Losartan Potassium 25 Mg Tablet) 100 mg PO X1 ONE Stop: 05/19/24 22:01 Last Admin: 05/19/24 22:13 Dose: 100 mg Nifedipine (Nifedipine 10 Mg Capsule) 30 mg PO TID [facility] Stop: 06/19/24 15:14 Last Admin: 05/20/24 15:47 Dose: 30 mg Potassium Chloride (Potassium Chloride 20 Meq Tabcr) 40 meq PO X1 ONE Stop: 05/20/24 09:23 Last Admin: 05/20/24 10:47 Dose: 40 meq Potassium Chloride (Potassium Chloride 20 Meq Tabcr) 20 meq PO X1 ONE Stop: 05/20/24 11:01 Last Admin: 05/20/24 10:47 Dose: 20 meq Sevelamer Carbonate (Sevelamer Carbonate 800 Mg Tablet) 800 mg PO X1 ONE Stop: 05/20/24 10:19 Last Admin: 05/20/24 12:07 Dose: 800 mg Succinylcholine Chloride (Succinylcholine Inj 20 Mg/Ml Vial 10 Ml) 100 mg IV X1 ONE Stop: 05/20/24 16:55 Last Admin: 05/20/24 16:59 Dose: 100 mg Tamsulosin HCl (Tamsulosin Hcl 0.4 Mg Capsule) 0.4 mg PO QDAY [facility] Stop: 06/19/24 08:59 Last Admin: 05/20/24 11:11 Dose: Not Given Assessment & Plan Plan The patient is a 54-year-old male with significant past medical history of HTN, CKD, HFpEF LVEF 50 to 55% in 2022, methamphetamine use who presented to ED on 05/19/2024 with chief complaint of SOB, was presumed to be on acute decompensated CHF, was diuresed with IV Bumex 2 Mg twice daily, and as per nurse in the ED the patient was diuresing well. At 1743 the patient received nifedipine 30 Mg and blood pressure tanked to 84/65. There was deterioration in patient's mentation, and the patient was intubated to protect airway. The patient was upgraded to ICU for further management. Neuro #Acute hypoxic encephalopathy In the setting of sudden drop in blood pressure from 170s systolic to 80s systolic, with aggressive hypertensive emergency management Patient was alert and oriented x 3 before sudden drop in blood pressure. -Treat the underlying cause -Currently sedated and mechanically ventilated to protect airway #Methamphetamine abuse disorder #Marijuana abuse disorder -Utox positive -We will refer to social service once patient's mentation improves. Cardio: #Shock Most likely distributive shock with vasodilation in the setting of calcium channel prasanna, nifedipine use DDx: Less likely cardiogenic shock, as patient's heart rate is maintained in 70s. -Patient received calcium chloride 1 g IV x 3 in the ED -On Levophed drip to maintain MAP greater than 100 mmHg #NSTEMI Likely type II in the setting of shock Troponin trended up to 0.722 -Continue to trend troponin until delta is achieved #History of hypertension -Currently patient is hypotensive #Acute exacerbation of HFpEF Last echo done in 2022 revealed LVEF 50 to 55% with grade 1 diastolic failure Patient presented with SOB, was diuresed well in the ED -We will hold off on diuresis, as blood pressure is soft and patient does not seems to be in volume overload Pulm: #Acute hypoxic respiratory failure Patient presented with shortness of breath in the setting of acute exacerbation of HFpEF, once saturating well on 4 to 5 L NC and was being diuresed well CXR significant for mild vascular congestion -Currently sedated, intubated and mechanically ventilated to protect airway GI: #Cirrhosis likely secondary to alcohol abuse in the past #Hyperbilirubinemia #Mild transaminitis DDx: Etiology currently unknown, likely secondary to cirrhosis Ultrasound abdomen done once only significant for cirrhosis with fluid around the gallbladder wall -Continue to monitor LFT #GI prophylaxis: -Started on Protonix 40 Mg IV daily at night, as patient is intubated Renal: #High anion gap metabolic acidosis 2/2 #Lactic acidosis Secondary to shock, with lactic acid level 5.0 Patient received 2 L IV crystalline fluid bolus -We will treat the underlying shock -Repeat lactic acid every 4 hourly #CKD stage III B -Monitor renal panel #Mild hypocalcemia Most likely secondary to calcium channel prasanna, nifedipine use Patient received calcium chloride 1 g IV x 3 -Monitor CMP #Hyperphosphatemia Secondary to CKD -May need to use sevelamer if repeat phosphorus levels are high #Mild hypoosmolar hyponatremia Sodium level 132 Secondary to diuretics use -Continue to monitor Heme: No active condition Endo: -No active condition ID: -No active condition MSK/skin: Bilateral lower limb pitting edema with darkening of skin secondary to possible venous stasis -Continue to monitor Health maintenance: Dispo: Patient admitted to ICU for further management of distributive shock and acute hypoxic encephalopathy secondary to calcium channel prasanna use leading to sudden drop in blood pressure Lines: Peripheral lines Diet: N.p.o. DVT prophylaxis: Subcu heparin 3 times daily CODE STATUS: Full code The patient's management plan was discussed with my attending physician MD Chauncey Francis MD, PGY2
[2024-05-20 20:02] LABS: Troponin I 0.722 ng/mL (0.0-0.045)
[2024-05-20 20:26] LABS: Reflex Lactate? Y
[2024-05-20] MEDS: Norepinephrine/D5W 8mg/250ml 8 MG/250 ML BAG 46.777 MG IV (20:30)
[2024-05-20] MEDS: PANTOPRAZOLE INJ 40 MG VIAL IVP (20:54)
--- NOTE | 2024-05-20 21:23 | PC.RT ---
transported pt from ER to ICU. No complications
[2024-05-20 21:38] LABS: Lactic Acid, 3 HR 4.8 mMol/L (0.4-2.0)
[2024-05-20] MEDS: HEPARIN SOD INJ 5000 UNIT/ML VIAL SC (21:56)
[2024-05-20] MEDS: Norepinephrine/D5W 8mg/250ml 8 MG/250 ML BAG 43.034 MG IV (22:57)
[2024-05-21] VITALS (38 sets, daily range): BP systolic 135–199; BP diastolic 87–116; PULSE 77–110; RESP 14–26; TEMP 36.2–38.3; O2SAT 91–100; BMI 26.6
[2024-05-21 00:08] LABS: Troponin I 1.065 ng/mL (0.0-0.045)
[2024-05-21] MEDS: PROPOFOL 1,000 MG IVPB 1,000 MG/100 ML VIAL 11.975 MG IV (01:02)
[2024-05-21 04:59] LABS: Base Excess 3 (-3-3); HCO3 29 mEq/L (20-26); Inspired Oxygen, FIO2 60 %; O2 Saturation 98 % (91-98); PCO2 44 mmHg (32.0-48.0); PO2 107 mmHg (83-108); pH, Arterial 7.42 (7.35-7.45)
[2024-05-21 05:06] LABS: Allen Test Not Performed; Puncture Site Left Radial
--- NOTE | 2024-05-21 05:13 | PC.RT ---
fio2 titrated to 55% peep titrated to 5 per abg results.
[2024-05-21] MEDS: HEPARIN SOD INJ 5000 UNIT/ML VIAL SC (05:28)
[2024-05-21 06:21] LABS: Basophils % (Auto) 0 % (0-2.5); Eosinophils % (Auto) 0 % (0-10); Immature Granulocytes % (Auto) 0 % (0-0); Immature Granulocytes Auto 0.02 Thou/mm3 (0.00-0.00); Lymphocytes # (Auto) 1.6 Thou/mm3 (1.0-4.8); Lymphocytes % (Auto) 23 % (10-50); Mean Corpuscular Hemoglobin 31.6 pg (25.0-35.0); Mean Corpuscular Volume 93 fL (80-100); Monocytes # (Auto) 1.3 Thou/mm3 (0.0-0.8); Monocytes % (Auto) 18 % (0-12); Neutrophils # (Auto) 4.2 Thou/mm3 (1.8-7.7); Neutrophils % (Auto) 59 % (37-80); Nucleated Red Blood Cell % 0 /100 WBC (0); Platelet Count 195 Thou/mm3 (140-440); RDW Standard Deviation 49.3 fL (35.1-43.9); Red Blood Count 5.07 Miln/mm3 (4.50-5.90); White Blood Count 7.1 Thou/mm3 (3.8-10.6)
--- NOTE | 2024-05-21 07:52 | XR_ITS ---
Examination: AP chest single view TECHNIQUE: AP portable supine chest single view Exam date and time: May 21, 2024 0808 hours Comparison May 20, 2024 INDICATIONS: Shortness of breath today hypoxic respiratory failure postintubation FINDINGS: Mild enlargement cardiac contour Pneumonia left base Endotracheal tube tip 6.1 cm above lisa The orogastric tube is in the stomach No pulmonary edema IMPRESSION: Left base pneumonia Endotracheal tube tip 6.1 cm above lisa
[2024-05-21 07:53] LABS: Alanine Aminotransferase 131 U/L (10-49); Albumin/Globulin Ratio 1.1 (1.2-2.2); Alkaline Phosphatase 107 U/L (46-116); Anion Gap 13 (7-16); Aspartate Amino Transferase 166 U/L (0-34); BUN/Creatinine Ratio 20 Ratio (12-20); Bilirubin,Total 3.4 mg/dL (0.3-1.2); Blood Urea Nitrogen 48 mg/dL (9-23); Calcium 9.9 mg/dL (8.3-10.6); Calcium (Corrected) 9.9 mg/dL (8.5-10.1); Carbon Dioxide 26.7 mMol/L (20.0-31.0); Chloride 96 mMol/L (98-107); Creatinine (Component) 2.4 mg/dL (0.6-1.3); Estimated Creatinine Clearance 38.2 mL/min (>60); Globulin 3.6 gm/dL (2.3-3.5); Glucose 66 mg/dL (74-106); Magnesium 2.2 mg/dL (1.6-2.6); Osmolality,Calculated 282 (275-295); Potassium 3.6 mMol/L (3.4-5.1); Sodium 136 mMol/L (136-145); Total Protein 7.6 gm/dL (5.7-8.2); eGFR 31 See Note
--- NOTE | 2024-05-21 07:58 | EKG_ITS ---
[facility] Test Date: 2024-05-21 Pat Name: NEEL TAMAYO [facility] Gender: Male Iv Technician: ALEYDA : [id number] Requested By: Chauncey Zambrano Order Number: [id number] Reading MD: Chauncey Zambrano Measurements Intervals [place] Rate: 102 P: 90 CO: 167 QRS: 230 QRSD: 117 T: 56 QT: 364 QTc: 475 Interpretive Statements SINUS TACHYCARDIA POSSIBLE RIGHT ATRIAL ENLARGEMENT LEFT ATRIAL ENLARGEMENT PATTERN CONSISTENT WITH PULMONARY DISEASE INCOMPLETE RIGHT BUNDLE BRANCH BLOCK RIGHT VENTRICULAR HYPERTROPHY MODERATE ST DEPRESSION Compared to ECG 05/19/2024 19:54:19 Incomplete right bundle-branch block now present Right ventricular hypertrophy now present ST (T wave) deviation now present Right-axis deviation no longer present Right bundle-branch block no longer present /store/NU/[id number].pdf
--- NOTE | 2024-05-21 08:42 | PC.PT ---
Patient is currently on mechanical ventilation in the ICU. Patient is not appropriate for PT intervention at this time. Will cancel PT evaluation.
[2024-05-21] MEDS: SENNA TABLET 1 TAB PO (08:49)
[2024-05-21] MEDS: carVEDILOL 12.5 MG TABLET PO ×2 (08:49→17:37)
[2024-05-21] MEDS: BUMETANIDE INJ 0.25 MG/ML VIAL 4 ML 2 MG IVP ×2 (08:49→20:20)
[2024-05-21] MEDS: POTASSIUM CHL 10 mEq IVPB 10 MEQ/100 ML BAG 100 MEQ IV ×2 (08:50→10:19)
--- NOTE | 2024-05-21 10:00 | ESPR_ITS ---
Documentation for date of: 05/21/24 Subjective Subjective Interval history: Patient was seen in the ICU this morning. Yesterday evening patient developed respiratory distress for which he was eventually intubated and upgraded to the ICU. Patient was also noted to be hypotensive and was started on Levophed. This morning patient was intubated and was off Levophed. Potassium 6 and magnesium 2.2, recommend to keep above 4 and 2 respectively to avoid any further arrhythmias. Lactic acid was also elevated. patient was upgraded to the ICU, but this morning was back down to 2. Patient's troponin also continue to be elevated with the most recent 1 being 2.02, but patient denies any chest pain during initial encounter any event afterwards. This elevated troponins is most likely due to hypertensive emergency as well as CHF exacerbation. EKGs did not show any ST changes. Can start heparin drip if no contraindications and hb stable. Recommend to place patient on high intensity statin and aspirin Recommend to get nephrology consult Recommend no further troponins. Recommend to continue IV Bumex 2 mg Three times daily as patient is fluid overloaded. Recommend vasopressor support as needed as patient is most likely in septic versus cardiogenic shock. Exam Vital Signs Temp Pulse Resp BP Pulse Ox O2 Del Method O2 Flow Rate 97.1 F 110 H 18 180/115 H 99 Mechanical Ventilation 60 05/21/24 04:00 05/21/24 08:49 05/20/24 22:45 05/21/24 08:49 05/21/24 07:00 05/21/24 04:00 05/20/24 20:00 FiO2 55 05/21/24 06:12 Narrative Exam General: AO x 0 and mechanically ventilated Eyes: Pupils reactive to light. Eyes bulging Ears: No visible ear discharge. Nose: No visible nasal discharge. Mouth/Throat: dry mucous membranes, no redness, no lesions. Neck: Neck supple, non-tender, no cervical lymphadenopathy. Lungs: Decreased in lower lobes, No accessory muscle use. Cardio: Normal S1/S2, regular rhythm, no murmurs, no JVD Abdomen: Soft, non-tender, no palpable masses, peristalsis present, Extremities: Symmetrical, no significant deformities, 2+ peripheral edema , non-tender, peripheral pulses presents. Skin: No rashes, no lesions, warm to touch. Neuro: Patient is mechanically ventilated Objective Labs 05/21/24 04:55 05/21/24 17:50 Labs: Laboratory Results - last 24 hr 05/20/24 05/20/24 05/20/24 09:41 13:40 17:18 WBC RBC Hgb Hct MCV MCH MCHC RDW Std Deviation Plt Count Neut % (Auto) Lymph % (Auto) [place] % (Auto) Eos % (Auto) Baso % (Auto) Neut # (Auto) Lymph # (Auto) [place] # (Auto) Eos # (Auto) Baso # (Auto) Immature Gran # (Auto) Absolute Nucleated RBC Immature Gran % Nucleated RBC % Puncture Site ABG pH ABG pCO2 ABG pO2 ABG HCO3 ABG O2 Saturation ABG Base Excess FiO2 Sodium Potassium Chloride Carbon Dioxide Anion Gap BUN Creatinine Estim Creat Clear Calc eGFR BUN/Creatinine Ratio Glucose Calculated Osmolality Lactic Acid 5.0 H* Calcium Corrected Calcium Phosphorus 5.3 H Magnesium Total Bilirubin AST ALT Alkaline Phosphatase Troponin I 0.567 H* Total Protein Albumin Globulin Albumin/Globulin Ratio 05/20/24 05/20/24 05/20/24 17:52 18:18 19:30 WBC 3.9 RBC 4.88 Hgb 15.5 Hct 46.1 MCV 95 MCH 31.8 MCHC 33.6 RDW Std Deviation 51.2 H Plt Count 188 Neut % (Auto) 45 Lymph % (Auto) 34 [place] % (Auto) 20 H Eos % (Auto) 0 Baso % (Auto) 1 Neut # (Auto) 1.7 L Lymph # (Auto) 1.3 [place] # (Auto) 0.8 Eos # (Auto) 0.0 Baso # (Auto) 0.0 Immature Gran # (Auto) 0.03 H Absolute Nucleated RBC 0.00 Immature Gran % 1 H Nucleated RBC % 0 Puncture Site Right Radial ABG pH 7.36 ABG pCO2 33 ABG pO2 375 H ABG HCO3 19 L ABG O2 Saturation 101 H ABG Base Excess -6 L FiO2 100 Sodium 132 L Potassium 3.9 D Chloride 98 Carbon Dioxide 16.5 L Anion Gap 18 H BUN 33 H Creatinine 2.4 H Estim Creat Clear Calc 42.5 L eGFR 31 L BUN/Creatinine Ratio 14 Glucose 93 Calculated Osmolality 271 L Lactic Acid Calcium 8.2 L Corrected Calcium 8.3 L Phosphorus 5.7 H Magnesium 2.2 Total Bilirubin 3.6 H AST 159 H ALT 127 H Alkaline Phosphatase 108 Troponin I 0.621 H* 0.722 H* Total Protein 7.7 Albumin 3.9 Globulin 3.8 H Albumin/Globulin Ratio 1.0 L 05/20/24 05/20/24 05/21/24 21:00 23:38 04:45 WBC RBC Hgb Hct MCV MCH MCHC RDW Std Deviation Plt Count Neut % (Auto) Lymph % (Auto) [place] % (Auto) Eos % (Auto) Baso % (Auto) Neut # (Auto) Lymph # (Auto) [place] # (Auto) Eos # (Auto) Baso # (Auto) Immature Gran # (Auto) Absolute Nucleated RBC Immature Gran % Nucleated RBC % Puncture Site Left Radial ABG pH 7.42 ABG pCO2 44 D ABG pO2 107 D ABG HCO3 29 H ABG O2 Saturation 98 ABG Base Excess 3 FiO2 60 Sodium Potassium Chloride Carbon Dioxide Anion Gap BUN Creatinine Estim Creat Clear Calc eGFR BUN/Creatinine Ratio Glucose Calculated Osmolality Lactic Acid 4.8 H* Calcium Corrected Calcium Phosphorus Magnesium Total Bilirubin AST ALT Alkaline Phosphatase Troponin I 1.065 H* D Total Protein Albumin Globulin Albumin/Globulin Ratio 05/21/24 05/21/24 04:55 08:35 WBC 7.1 D RBC 5.07 Hgb 16.0 Hct 47.0 MCV 93 MCH 31.6 MCHC 34.0 RDW Std Deviation 49.3 H Plt Count 195 Neut % (Auto) 59 Lymph % (Auto) 23 [place] % (Auto) 18 H Eos % (Auto) 0 Baso % (Auto) 0 Neut # (Auto) 4.2 Lymph # (Auto) 1.6 [place] # (Auto) 1.3 H Eos # (Auto) 0.0 Baso # (Auto) 0.0 Immature Gran # (Auto) 0.02 H Absolute Nucleated RBC 0.00 Immature Gran % 0 Nucleated RBC % 0 Puncture Site ABG pH ABG pCO2 ABG pO2 ABG HCO3 ABG O2 Saturation ABG Base Excess FiO2 Sodium 136 Potassium 3.6 Chloride 96 L Carbon Dioxide 26.7 Anion Gap 13 BUN 48 H Creatinine 2.4 H Estim Creat Clear Calc 38.2 L eGFR 31 L BUN/Creatinine Ratio 20 Glucose 66 L Calculated Osmolality 282 Lactic Acid 2.0 Calcium 9.9 D Corrected Calcium 9.9 D Phosphorus 6.0 H Magnesium 2.2 Total Bilirubin 3.4 H AST 166 H ALT 131 H Alkaline Phosphatase 107 Troponin I 2.020 H* D Total Protein 7.6 Albumin 4.0 Globulin 3.6 H Albumin/Globulin Ratio 1.1 L ABG Interpretation ABG results: 05/20/24 05/21/24 17:52 04:45 ABG pH 7.36 7.42 ABG pCO2 33 44 D ABG pO2 375 H 107 D ABG HCO3 19 L 29 H ABG O2 Saturation 101 H 98 ABG Base Excess -6 L 3 Quality Measures Quality Measures none Assessment & Plan Assessment Current Active Medications: Generic Name Dose Route Start Last Admin Trade Name Freq PRN Reason Stop Dose Admin Acetaminophen 650 mg 05/20/24 01:03 Acetaminophen 325 Mg Tablet PO 06/19/24 01:02 Q6H PRN Pain 1-3 or Fever >100.3 Bumetanide 2 mg 05/21/24 09:00 05/21/24 08:49 Bumetanide Inj 0.25 Mg/Ml Vial 4 Ml IVP 06/20/24 08:59 2 mg BID MICAH Administration Carvedilol 12.5 mg 05/21/24 08:30 05/21/24 08:49 Carvedilol 12.5 Mg Tablet PO 06/20/24 08:29 12.5 mg BIDWM MICAH Administration Heparin Sodium (Porcine) 5,000 unit 05/20/24 22:00 05/21/24 05:28 Heparin Sod Inj 5000 Unit/Ml Vial SC 06/03/24 21:59 5,000 unit TID MICAH Administration Hydralazine HCl 10 mg 05/21/24 08:25 Hydralazine Inj 20 Mg/Ml Vial IV 06/20/24 08:24 Q4HR PRN SBP>180 Fentanyl Citrate 2,500 mcg in 250 mls @ 2.5 mls/hr 05/20/24 16:56 05/21/24 07:00 Sublimaze Inj 2,500 Mcg/250 Ml Bag IV 05/25/24 16:55 50 mcg/hr .Q24H PRN 5 mls/hr PER PROTOCOL Titration Protocol 25 MCG/HR Propofol 1,000 mg in 100 mls @ 2.994 mls/hr 05/20/24 16:56 05/21/24 07:30 Diprivan Ivpb IV 06/19/24 16:55 5 mcg/kg/min .Q24H PRN 2.994 mls/hr PER PROTOCOL Titration Protocol 5 MCG/KG/MIN Ampicillin Sodium/Sulbactam 50 mls @ 100 mls/hr 05/21/24 08:45 Sodium 1.5 gm/ Sodium Chloride IV 05/28/24 08:44 Q6HR MICAH Nitroglycerin 0.4 mg 05/20/24 09:30 Nitroglycerin 0.4 Mg Subl Btl #25 SL Q5MIN PRN CHEST PAIN Ondansetron HCl 4 mg 05/20/24 01:03 Ondansetron Inj 2 Mg/Ml Inj 2 Ml IV 06/19/24 01:02 Q6H PRN NAUSEA OR VOMITING Protocol Pantoprazole Sodium 40 mg 05/20/24 21:00 05/20/24 20:54 Pantoprazole Inj 40 Mg Vial IVP 06/19/24 20:59 40 mg HS MICAH Administration Pharmacy Consult 1 each 05/21/24 08:42 Pharmacy Renal Dose Adjustment 1 Ea XX 06/20/24 08:41 PRN PRN CONSULT Sennosides 1 tab 05/20/24 09:00 05/21/24 08:49 Senna Tablet PO 06/19/24 08:59 1 tab QDAY MICAH Administration Protocol Tamsulosin HCl 0.4 mg 05/20/24 21:00 Tamsulosin Hcl 0.4 Mg Capsule PO 06/19/24 20:59 HS MICAH Plan 54-year-old male with past medical history of meth use, HFpEF (50 to 55% on 2022), CKD, and hypertension was admitted to the hospital on 05/20/2024 due to acute decompensated heart failure exacerbation. 1. Acute decompensated heart failure exacerbation (EF 50 to 55% on 2022) 2. Cardiogenic shock? ?Patient came in with shortness of breath and bilateral lower extremity swelling ? Initial BNP was more than 3280 ? 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 Patient clinically looks fluid overloaded and having shortness of breath with having to stop in between sentences. ?Echo on 03/15/2023 had the following findings: Normal LV size and function. Moderate LVH. Diastolic dysfunction stage I. Estimated EF 50 to 55%. Normal RV size and function. Trace TR. Plan: ? Recommend to continue Bumex 2 mg TID -Can start heparin drip if no contraindications. -Recommend to place patient on high intensity statin and aspirin -Recommend to get nephrology consult -Recommend vasopressor support as needed as patient most likely was in septic versus cardiogenic shock. ? Will follow-up on echo ? Strict WES's ? Daily weights ?Fluid restrictions ?Low-sodium diet ? Recommend to strictly replace potassium and magnesium to keep above 4 and 2 respectively to avoid any further arrhythmias 3. Hypertensive emergency 4. NSTEMI ?Patient's initial blood pressure was 217/126 ? Troponins were elevated at 0.287 on admission and up trended to 0.567 ?EKG did not show any acute ST changes ? NSTEMI most likely type II in the setting of acute decompensated heart failure exacerbation and hypertensive emergency Plan: -Recommend no further troponins. -Can start heparin drip if no contraindications. -Recommend to place patient on high intensity statin and aspirin -Recommend to get nephrology consult -Recommend vasopressor support as needed as patient most likely was in septic versus cardiogenic shock. 5. Cirrhosis 6. Congestive hepatopathy 7. Ascites 8. Transaminitis 9. Hyperbilirubinemia ?Abdomen/pelvis CT shows cirrhosis and ascites ? Abdominal ultrasound showed cirrhosis ? AST 112, ALT 84 and 2 bilirubin 3.9 on admission ?Presents most likely on congestive hepatopathy most likely secondary to congestive heart failure ?Continue current management as per primary care team 10. CKD ? Initial creatinine was 2.1 and BUN 26 on admission ?Could be secondary to cardiorenal syndrome ? Continue current management as per primary care team 11. Polysubstance use (meth and THC) ? U tox was positive for meth and THC ? Continue current management as per primary care team Continue rest of management as per primary team. We are grateful to be able to participate in Mr. De's care. Thank you for the consult Plan of care discussed with attending Log Loader Helper, Dr Vero Jang MD PGY-1 There is a high probability of sudden, clinically significant or life threatening deterioration in the patient condition which required the highest level of physician preparedness to intervene urgently. I have personally spent 65 minutes of critical care time, exclusive of time spent on any procedures, in evaluation and management of this critically ill patient. Attending Provider Attestation/Addendum I have personally seen and examined the patient separately on the above date of service and discussed the plan of care with the resident. I reviewed the resident Dr. Pelayo consultation progress note and agree with the resident findings and plan in the note above and have also edited the documentation to reflect my findings and plan. Remy Pham M.D. Interventional Cardiology
[2024-05-21] MEDS: AMPICILLIN/SULBAC INJ 1.5 GM in SODIUM CHLORIDE 0.9% (P) 50 ML IV ×3 (10:19→17:35)
--- NOTE | 2024-05-21 11:43 | PC.SS ---
Update: MANAGER FOOD confirmed with respiratory staff, plan to extubate patient today.
[2024-05-21] MEDS: SEVELAMER CARBONATE 800 MG TABLET PO ×2 (12:12→20:21)
[2024-05-21] MEDS: SPIRONOLACTONE 25 MG TABLET NG (12:13)
--- NOTE | 2024-05-21 12:42 | ESPR_ITS ---
<Statement entered by Nata Leahy MD - 05/22/24 08:29> TOTAL TIME: 45MINUTES ON DIRECT MEDICAL CARE, MANAGEMENT - COORDINATION AND COUNSELING > 50% OF TOTAL TIME I saw and evaluated the patient. I reviewed the resident?s note and agree with findings and plan as documented in the resident?s note. Patient was weaned from sedation placed on pressure support ventilation and after passing his spontaneous breathing trial was successfully extubated. Carvedilol 12.5 mg twice daily started. Goal systolic blood pressure between 160 to 180 mmHg; diastolic blood pressure range 80 to 90 mmHg Documentation for date of: 05/21/24 Subjective Subjective Interval history: The patient is a 54-year-old male with significant past medical history of HTN, CKD, HFpEF LVEF 50 to 55% in 2022, methamphetamine use who presented to ED on 05/19/2024 with chief complaint of SOB, was presumed to be on acute decompensated CHF, was diuresed with IV Bumex 2 Mg twice daily, and as per nurse in the ED the patient was diuresing well. The patient was saturating well with 4 to 5 L NC, and as patient had presented with hypertensive emergency with troponin leak's as possible endorgan damage, antihypertensive medications were given which initially decreased the blood pressure down gradually from 217/126 to 162/94, and then blood pressure started trending up and was fluctuating between 160 to 180. At 1743 the patient received nifedipine 30 Mg and blood pressure tanked to 84/65. There was deterioration in patient's mentation, and the patient was intubated to protect airway. The patient was upgraded to ICU for further management. 05/21/2024: The patient was examined at the bedside this morning. He was sedated and intubated, saturating 93 to 94% on FiO2 55%. Heart rate was ranging between 80 to 90 bpm. CBC at baseline, WNL, chemistry panel with creatinine 2.4, EGFR 31, phosphorus 6.0 and downtrending bilirubin from 3.6-3.4 and downtrending AST and ALT. Lactic acid trended down to 2.0. However, troponins elevated to 2.020 and EKG done was not significant for any ST wave changes. Chest x-ray was significant for left base pneumonia, likely aspiration pneumonia. The patient was started on Bumex 2 mg IV twice daily, spironolactone 25 Mg daily, sevelamer 800 Mg daily. The patient later underwent trial of SAT and SBT, and we decreased FiO2 to 45% that patient tolerated well. Then, the patient was extubated to nasal cannula. Later, Dr. Pham recommended the patient on heparin drip ACS protocol without bolus. The patient is negative by 600 cc. The patient will be downgraded to med tele and peer to peer sign out was given to Dr. Evette MD PGY2. Exam Vital Signs Temp Pulse Resp BP Pulse Ox O2 Del Method O2 Flow Rate 98.1 F 89 18 164/99 H 91 L Mechanical Ventilation 60 05/21/24 12:00 05/21/24 12:13 05/20/24 22:45 05/21/24 12:13 05/21/24 12:00 05/21/24 04:00 05/20/24 20:00 FiO2 55 05/21/24 10:02 Narrative Exam General: No acute distress, Alert but somnolent HEENT: Moist mucous membranes, oropharynx clear Neck: Supple, No masses, No JVD CVS: S1S2 Regular rate and rhythm, No murmurs, rubs or gallops Lungs: Clear to auscultation with no accessory use, no wheeze no rhonchi Abd: Soft, NT/ND, +BS, no organomegaly Ext: 1+ LL edema, warm and well perfused Skin: BL BK darkening of skin Psych: Somnolent Objective Labs 05/21/24 04:55 05/21/24 04:55 Labs: Laboratory Results - last 24 hr 05/20/24 05/20/24 05/20/24 13:40 17:18 17:52 WBC RBC Hgb Hct MCV MCH MCHC RDW Std Deviation Plt Count Neut % (Auto) Lymph % (Auto) Noble % (Auto) Eos % (Auto) Baso % (Auto) Neut # (Auto) Lymph # (Auto) Noble # (Auto) Eos # (Auto) Baso # (Auto) Immature Gran # (Auto) Absolute Nucleated RBC Immature Gran % Nucleated RBC % Puncture Site Right Radial ABG pH 7.36 ABG pCO2 33 ABG pO2 375 H ABG HCO3 19 L ABG O2 Saturation 101 H ABG Base Excess -6 L FiO2 100 Sodium Potassium Chloride Carbon Dioxide Anion Gap BUN Creatinine Estim Creat Clear Calc eGFR BUN/Creatinine Ratio Glucose Calculated Osmolality Lactic Acid 5.0 H* Calcium Corrected Calcium Phosphorus Magnesium Total Bilirubin AST ALT Alkaline Phosphatase Troponin I 0.567 H* Total Protein Albumin Globulin Albumin/Globulin Ratio 05/20/24 05/20/24 05/20/24 18:18 19:30 21:00 WBC 3.9 RBC 4.88 Hgb 15.5 Hct 46.1 MCV 95 MCH 31.8 MCHC 33.6 RDW Std Deviation 51.2 H Plt Count 188 Neut % (Auto) 45 Lymph % (Auto) 34 Noble % (Auto) 20 H Eos % (Auto) 0 Baso % (Auto) 1 Neut # (Auto) 1.7 L Lymph # (Auto) 1.3 Noble # (Auto) 0.8 Eos # (Auto) 0.0 Baso # (Auto) 0.0 Immature Gran # (Auto) 0.03 H Absolute Nucleated RBC 0.00 Immature Gran % 1 H Nucleated RBC % 0 Puncture Site ABG pH ABG pCO2 ABG pO2 ABG HCO3 ABG O2 Saturation ABG Base Excess FiO2 Sodium 132 L Potassium 3.9 D Chloride 98 Carbon Dioxide 16.5 L Anion Gap 18 H BUN 33 H Creatinine 2.4 H Estim Creat Clear Calc 42.5 L eGFR 31 L BUN/Creatinine Ratio 14 Glucose 93 Calculated Osmolality 271 L Lactic Acid 4.8 H* Calcium 8.2 L Corrected Calcium 8.3 L Phosphorus 5.7 H Magnesium 2.2 Total Bilirubin 3.6 H AST 159 H ALT 127 H Alkaline Phosphatase 108 Troponin I 0.621 H* 0.722 H* Total Protein 7.7 Albumin 3.9 Globulin 3.8 H Albumin/Globulin Ratio 1.0 L 05/20/24 05/21/24 05/21/24 23:38 04:45 04:55 WBC 7.1 D RBC 5.07 Hgb 16.0 Hct 47.0 MCV 93 MCH 31.6 MCHC 34.0 RDW Std Deviation 49.3 H Plt Count 195 Neut % (Auto) 59 Lymph % (Auto) 23 Noble % (Auto) 18 H Eos % (Auto) 0 Baso % (Auto) 0 Neut # (Auto) 4.2 Lymph # (Auto) 1.6 Noble # (Auto) 1.3 H Eos # (Auto) 0.0 Baso # (Auto) 0.0 Immature Gran # (Auto) 0.02 H Absolute Nucleated RBC 0.00 Immature Gran % 0 Nucleated RBC % 0 Puncture Site Left Radial ABG pH 7.42 ABG pCO2 44 D ABG pO2 107 D ABG HCO3 29 H ABG O2 Saturation 98 ABG Base Excess 3 FiO2 60 Sodium 136 Potassium 3.6 Chloride 96 L Carbon Dioxide 26.7 Anion Gap 13 BUN 48 H Creatinine 2.4 H Estim Creat Clear Calc 38.2 L eGFR 31 L BUN/Creatinine Ratio 20 Glucose 66 L Calculated Osmolality 282 Lactic Acid Calcium 9.9 D Corrected Calcium 9.9 D Phosphorus 6.0 H Magnesium 2.2 Total Bilirubin 3.4 H AST 166 H ALT 131 H Alkaline Phosphatase 107 Troponin I 1.065 H* D 2.020 H* D Total Protein 7.6 Albumin 4.0 Globulin 3.6 H Albumin/Globulin Ratio 1.1 L 05/21/24 08:35 WBC RBC Hgb Hct MCV MCH MCHC RDW Std Deviation Plt Count Neut % (Auto) Lymph % (Auto) Noble % (Auto) Eos % (Auto) Baso % (Auto) Neut # (Auto) Lymph # (Auto) Noble # (Auto) Eos # (Auto) Baso # (Auto) Immature Gran # (Auto) Absolute Nucleated RBC Immature Gran % Nucleated RBC % Puncture Site ABG pH ABG pCO2 ABG pO2 ABG HCO3 ABG O2 Saturation ABG Base Excess FiO2 Sodium Potassium Chloride Carbon Dioxide Anion Gap BUN Creatinine Estim Creat Clear Calc eGFR BUN/Creatinine Ratio Glucose Calculated Osmolality Lactic Acid 2.0 Calcium Corrected Calcium Phosphorus Magnesium Total Bilirubin AST ALT Alkaline Phosphatase Troponin I Total Protein Albumin Globulin Albumin/Globulin Ratio ABG Interpretation ABG results: 05/20/24 05/21/24 17:52 04:45 ABG pH 7.36 7.42 ABG pCO2 33 44 D ABG pO2 375 H 107 D ABG HCO3 19 L 29 H ABG O2 Saturation 101 H 98 ABG Base Excess -6 L 3 Quality Measures Quality Measures none Assessment & Plan Assessment Current Active Medications: Generic Name Dose Route Start Last Admin Trade Name Freq PRN Reason Stop Dose Admin Acetaminophen 650 mg 05/20/24 01:03 Acetaminophen 325 Mg Tablet PO 06/19/24 01:02 Q6H PRN Pain 1-3 or Fever >100.3 Bumetanide 2 mg 05/21/24 11:32 Bumetanide Inj 0.25 Mg/Ml Vial 4 Ml IVP 06/20/24 08:59 BID MICAH Carvedilol 12.5 mg 05/21/24 11:32 Carvedilol 12.5 Mg Tablet PO 06/20/24 08:29 BIDWM MICAH Heparin Sodium (Porcine) 5,000 unit 05/20/24 22:00 05/21/24 05:28 Heparin Sod Inj 5000 Unit/Ml Vial SC 06/03/24 21:59 5,000 unit TID MICAH Administration Hydralazine HCl 10 mg 05/21/24 08:25 Hydralazine Inj 20 Mg/Ml Vial IV 06/20/24 08:24 Q4HR PRN SBP>180 Fentanyl Citrate 2,500 mcg in 250 mls @ 2.5 mls/hr 05/20/24 16:56 05/21/24 08:00 Sublimaze Inj 2,500 Mcg/250 Ml Bag IV 05/25/24 16:55 0 mcg/hr .Q24H PRN 0 mls/hr PER PROTOCOL Titration Protocol 25 MCG/HR Propofol 1,000 mg in 100 mls @ 2.994 mls/hr 05/20/24 16:56 05/21/24 08:00 Diprivan Ivpb IV 06/19/24 16:55 0 mcg/kg/min .Q24H PRN 0 mls/hr PER PROTOCOL Titration Protocol 5 MCG/KG/MIN Ampicillin Sodium/Sulbactam 50 mls @ 100 mls/hr 05/21/24 08:45 05/21/24 12:13 Sodium 1.5 gm/ Sodium Chloride IV 05/28/24 08:44 100 mls/hr Q6HR MICAH Administration Nitroglycerin 0.4 mg 05/20/24 09:30 Nitroglycerin 0.4 Mg Subl Btl #25 SL Q5MIN PRN CHEST PAIN Ondansetron HCl 4 mg 05/20/24 01:03 Ondansetron Inj 2 Mg/Ml Inj 2 Ml IV 06/19/24 01:02 Q6H PRN NAUSEA OR VOMITING Protocol Pantoprazole Sodium 40 mg 05/20/24 21:00 05/20/24 20:54 Pantoprazole Inj 40 Mg Vial IVP 06/19/24 20:59 40 mg HS MICAH Administration Pharmacy Consult 1 each 05/21/24 08:42 Pharmacy Renal Dose Adjustment 1 Ea XX 06/20/24 08:41 PRN PRN CONSULT Sennosides 1 tab 05/20/24 09:00 05/21/24 08:49 Senna Tablet PO 06/19/24 08:59 1 tab QDAY MICAH Administration Protocol Sevelamer Carbonate 800 mg 05/21/24 11:30 05/21/24 12:12 Sevelamer Carbonate 800 Mg Tablet PO 06/20/24 11:29 800 mg BID MICAH Administration Spironolactone 25 mg 05/21/24 11:30 05/21/24 12:13 Spironolactone 25 Mg Tablet NG 06/20/24 11:29 25 mg QDAY MICAH Administration Tamsulosin HCl 0.4 mg 05/20/24 21:00 Tamsulosin Hcl 0.4 Mg Capsule PO 06/19/24 20:59 HS MICAH Plan The patient is a 54-year-old male with significant past medical history of HTN, CKD, HFpEF LVEF 50 to 55% in 2022, methamphetamine use who presented to ED on 05/19/2024 with chief complaint of SOB, was presumed to be on acute decompensated CHF, was diuresed with IV Bumex 2 Mg twice daily, and as per nurse in the ED the patient was diuresing well. At 1743 the patient received nifedipine 30 Mg and blood pressure tanked to 84/65. There was deterioration in patient's mentation, and the patient was intubated to protect airway. The patient was upgraded to ICU for further management. 05/21/2024: The patient was examined at the bedside this morning. He was sedated and intubated, saturating 93 to 94% on FiO2 55%. Heart rate was ranging between 80 to 90 bpm. CBC at baseline, WNL, chemistry panel with creatinine 2.4, EGFR 31, phosphorus 6.0 and downtrending bilirubin from 3.6-3.4 and downtrending AST and ALT. Lactic acid trended down to 2.0. However, troponins elevated to 2.020 and EKG done was not significant for any ST wave changes. Chest x-ray was significant for left base pneumonia, likely aspiration pneumonia. The patient was started on Bumex 2 mg IV twice daily, spironolactone 25 Mg daily, sevelamer 800 Mg daily. The patient later underwent trial of SAT and SBT, and we decreased FiO2 to 45% that patient tolerated well. Later, the patient was extubated to nasal cannula. The patient is negative by 600 cc. Neuro #Acute hypoxic encephalopathy, improving In the setting of sudden drop in blood pressure from 170s systolic to 80s systolic, with aggressive hypertensive emergency management Patient was alert and oriented x 3 before sudden drop in blood pressure. -Treat the underlying cause -Patinet extubated and is currently somnolent #Methamphetamine abuse disorder #Marijuana abuse disorder -Utox positive -We will refer to social service once patient's mentation improves. Cardio: #Shock, resolved Most likely distributive shock with vasodilation in the setting of calcium channel prasanna, nifedipine use DDx: Less likely cardiogenic shock, as patient's heart rate is maintained in 70s. #NSTEMI More likely type II in the setting of shock, but as the trops are treding up, there is possibility of type 1 Troponin trended up to 2.926 EKG not significant for any ST segment changes -Dr. Pham on board, recommended heparin drip without bolus -On heparin drip -Continue to trend troponin until delta is achieved #Hypertension Started on Carvedilol 12.5mg twice daily if SBP >140 and HR > 60. Hydralazine 50 mg BID On IV hydralazine for SBP>180 -BP can be further lowered down to normal range by tomorrow evening. #Acute exacerbation of HFpEF Last echo done in 2022 revealed LVEF 50 to 55% with grade 1 diastolic failure Patient presented with SOB, was diuresed well in the ED -Started on Bemex 2mg twice daily, and on Spironolactone 25mg daily, diuresing well, negative by 600 CC even after 2L IV bolus fluid in the evening. -Monitor Ins and out Pulm: #Acute hypoxic respiratory failure 2/2 HFpEF exacerbation and aspiration PNA #Aspiration pneumonia Patient presented with shortness of breath in the setting of acute exacerbation of HFpEF, once saturating well on 4 to 5 L NC and was being diuresed well CXR significant for mild vascular congestion, and left sided PNA as compared to previous CXR during admission -On nasal canula -treat underlying condition #Cystic lung disease CT chest was significant for cystic lung disease Etiology currently unknown DDx: Sjogren syndrome, other autoimmune disease -Ordered LEONARDO -Further autoimmune workup after LEONARDO is found to be positive GI: #Cirrhosis likely secondary to alcohol abuse in the past #Hyperbilirubinemia, #Mild transaminitis DDx: Etiology currently unknown, likely secondary to cirrhosis Ultrasound abdomen done was only significant for cirrhosis with fluid around the gallbladder wall -Continue to monitor LFT -Continue on spironolactone 25 daily for ascites #GI prophylaxis: -Started on Protonix 40 Mg IV daily at night, as patient is intubated -We will discontinue protonix by tomorrow Renal: #High anion gap metabolic acidosis, resolved #Lactic acidosis, resolved Secondary to shock, with lactic acid level 5.0 Patient received 2 L IV crystalline fluid bolus -We will treat the underlying shock -Repeat lactic acid every 4 hourly #LATASHA on CKD stage III B Likely 2/2 renal congestion in the setting of CHF exacerbation and ascites -Treat underlying condition -Monitor renal panel #Mild hypocalcemia, resolved Most likely secondary to calcium channel prasanna, nifedipine use #Hyperphosphatemia Secondary to CKD -Started on sevelamer 800mg daily -Monitor daily #Mild hypoosmolar hyponatremia, improved Heme: -No active condition Endo: -No active condition ID: -No active condition MSK/skin: Bilateral lower limb pitting edema with darkening of skin secondary to possible venous stasis -Continue to monitor Health maintenance: Dispo: Patient admitted to ICU for further management of distributive shock and acute hypoxic encephalopathy secondary to calcium channel prasanna use leading to sudden drop in blood pressure Lines: Peripheral lines Diet: N.p.o. DVT prophylaxis: Subcu heparin 3 times daily CODE STATUS: Full code The patient's management plan was discussed with my attending physician MD Chauncey Francis MD, PGY2
[2024-05-21] MEDS: ALBUTEROL/IPRATROPIUM (Duoneb) RT SOL 3 ML NEBU INH ×2 (13:56→18:35)
--- NOTE | 2024-05-21 13:59 | EVENTNT_ITS ---
Documentation for date of: 05/21/24 Event Note Event Note: ICU downgrade: This patient 54-year-old male with past medical history of hypertension, CKD stage III B, HFpEF, methamphetamine use was admitted for acute hypoxic respiratory failure due to CHF exacerbation and hypertensive emergency. Patient was upgraded to ICU due to altered mental status due to hypotension and hypoxia. Therefore patient ended up getting intubated for airway protection and started on Levophed during ICU course. Patient was given reversal for calcium channel prasanna with calcium chloride x 3 after which patient's blood pressure showed improvement. Patient has been extubated today without complication and saturating well. ICU team started the patient on Unasyn given possible aspiration pneumonia and there was a concern for cystic lung disease therefore ICU team ordered LEONARDO to be followed up with. They recommended to continue IV diuresis and discontinue calcium blockers. Patient is currently on Bumex 2 mg IV twice daily and spironolactone 25 mg once daily. Patient is currently on heparin drip for 2 days for possible NSTEMI type II given underlying history of methamphetamine use. Environmental Services Specialist recommended to continue aspirin and statin therapy. Will closely monitor blood pressure. Patient is mildly somnolent however alert and oriented x 3. patient will be downgraded to floors for continuation of care To Team A, 05/22/2024. Signout was taken by Dr. Juan Manuel MD, PGY 2. Patient was seen and discussed with attending physician Dr. Juju Alas MD, PGY 2
--- NOTE | 2024-05-21 14:53 | PCS.ST ---
Swallow Evaluation completed. No dysphagia. Regular diet consistencies recommended.
[2024-05-21 15:05] LABS: Troponin I 2.926 ng/mL (0.0-0.045)
[2024-05-21 16:06] LABS: INR 1.6 (0.9-1.3); Partial Thromboplastin Time 30.3 Seconds (22.0-36.0); Prothrombin Time 16.5 Seconds (9.0-12.2)
[2024-05-21] MEDS: hydrALAZINE HCL 25 MG TABLET 50 MG PO ×2 (16:25→20:21)
[2024-05-21] MEDS: Heparin/D5w 25K 250 ML Ivpb 25,000 UNIT/250 ML BAG 10.704 UNIT IV (16:28)
[2024-05-21 18:31] LABS: Albumin, Serum 3.5 gm/dL (3.5-5.0); Anion Gap 11 (7-16); BUN/Creatinine Ratio 21 Ratio (12-20); Blood Urea Nitrogen 46 mg/dL (9-23); Calcium (Corrected) 9.4 mg/dL (8.5-10.1); Carbon Dioxide 27.8 mMol/L (20.0-31.0); Chloride 98 mMol/L (98-107); Creatinine (Component) 2.2 mg/dL (0.6-1.3); Estimated Creatinine Clearance 41.6 mL/min (>60); Glucose 77 mg/dL (74-106); Osmolality,Calculated 284 (275-295); Phosphorous 3.2 mg/dL (2.4-5.1); Potassium 2.8 mMol/L (3.4-5.1); Sodium 137 mMol/L (136-145); eGFR 35 See Note
[2024-05-21] MEDS: ACETAMINOPHEN 325 MG TABLET 650 MG PO (18:34)
[2024-05-21 18:58] LABS: Troponin I 2.721 ng/mL (0.0-0.045)
--- NOTE | 2024-05-21 19:10 | PC.NURSE ---
Patient shivering and spiked fever of 101, Dr. Marin notified and at bedside. Tylenol given.
[2024-05-21] MEDS: PIPER/TAZO 3.375 GM 3.375 GM/50 ML BAG IV (19:28)
--- NOTE | 2024-05-21 19:35 | PC.NURSE ---
Patient transfered from ICU, patient shivering and spiked fever, MD notified and tylenol given. Patient saturating at 94 on oxymask. Patient not complaining of pain and able to express needs. Family at bedside.
[2024-05-21] MEDS: PANTOPRAZOLE INJ 40 MG VIAL IVP (20:21)
[2024-05-21] MEDS: VANCOMYCIN/WATER 1250 MG IVPB 250 ML 120 MG IV (20:28)
[2024-05-22] VITALS (15 sets, daily range): BP systolic 106–144; BP diastolic 52–80; PULSE 73–86; RESP 15–32; TEMP 36.5–37.1; O2SAT 92–96
[2024-05-22] MEDS: ALBUTEROL/IPRATROPIUM (Duoneb) RT SOL 3 ML NEBU INH ×4 (00:09→18:18)
[2024-05-22 00:45] LABS: Base Excess 8 (-3-3); HCO3 31 mEq/L (20-26); PCO2 38 mmHg (32.0-48.0); pH, Arterial 7.53 (7.35-7.45)
[2024-05-22 00:46] LABS: Allen Test Performed/OK; Inspired O2, VO2 Liters 15 L/min; O2 Saturation 80 % (91-98); Puncture Site Right Radial
--- NOTE | 2024-05-22 00:47 | XR_ITS ---
Examination: CT brain head without contrast. 2-D sagittal coronal reconstructions Date and time of exam:May 22, 2024 0103 hrs. Indications: Stroke alert, onset focal neurologic deficit today, unresponsive, lethargy CTDI: vol (mGy):54.3 DLP: (mGycm):1196 Technique: Multiple CT axial sections of the brain have been obtained, 5 mm slice thickness. Contrast has not been administered. 2-D sagittal, coronal reconstructions have been obtained Low dose protocols were performed. One or more of the following dose reduction techniques were used; automated exposure control, adjustment of the mA and/or KV according to patient size, use of iterative reconstruction technique. Findings: No significant ventricular enlargement. Small old infarct right caudate nucleus Intra-axial or extra-axial hemorrhage density is not seen. No mass effect or midline shift Basal cisterns are not remarkable. Fourth ventricle is midline. Cranial vault intact. Impression: Negative for acute hemorrhage, mass effect or midline shift
--- NOTE | 2024-05-22 00:47 | XR_ITS ---
Examinations: MRI Brain without intravenous contrast. MRA brain without intravenous contrast. MRA carotids without intravenous contrast 3-D vascular reconstructions Date and time of exam: May 22, 2024 1955 hrs. Indications: Stroke alert today, onset focal neurologic deficit unresponsive lethargy Technique: Multiple axial and sagittal images of the brain have been obtained MRA brain carotid images without contrast obtained, including 3-D postprocessing, vascular maximum intensity projection images Findings: Sellaturcica is not enlarged. The optic chiasm and infundibular stalk are not remarkable. Prepontine and interpeduncular cisterns are not enlarged. No localized enlargement of the medulla or hardeep. Fourth ventricle and cerebellar tonsils normal in position. Subacute hemorrhage is not seen. Fourth ventricle is midline. Mass in the cerebellopontine angle region is not evident. 7th and 8th nerve complexes exhibits symmetry. Globes are symmetrical with no retro-orbital mass. Increased white matter signal mild Diffusion-weighted images demonstrate restricted diffusion left temporal lobe diffusion image 9 with signal deficit on the ADC map Subtle 1 to 2 mm foci restricted diffusion in the left parietal lobe and right parietal lobe diffusion images 16 1718 and 19 Mass-effect upon the ventricular system is not identified. MRA carotid images degraded by patient motion. MRA brain images no large vessel occlusions Impression: Multiple tiny embolic type infarcts left temporal lobe bilateral parietal lobes as above
[2024-05-22 00:48] LABS: PO2 43 mmHg (83-108)
[2024-05-22 01:03] LABS: Allen Test Performed/OK; Base Excess 7 (-3-3); HCO3 31 mEq/L (20-26); Inspired O2, VO2 Liters 15 L/min; O2 Saturation 93 % (91-98); PCO2 40 mmHg (32.0-48.0); PO2 64 mmHg (83-108); Puncture Site Right Radial
--- NOTE | 2024-05-22 01:05 | XR_ITS ---
Examination: CTA carotids with intravenous contrast CTA brain, head with intravenous contrast. 2-D sagittal, coronal reconstructions. 3-D reconstructions. Exam date and time: May 22, 2024 0111 hrs. Indications: Stroke alert, onset altered mental status lethargy focal neurologic deficit beginning 12 hours ago CTDI: vol (mGy) 43.8 DLP: (mGycm) 508 Technique: Multiple CTA axial brain, head carotid images post intravenous contrast injection 100 cc, [id number]. 2-D sagittal, coronal reconstructions. 3-D reconstructions, 3-D post processing including vascular maximum intensity projection images. Low dose protocols were performed. One or more of the following dose reduction techniques were used; automated exposure control, adjustment of the mA and/or KV according to patient size, use of iterative reconstruction technique. Findings: Acute left sphenoid sinusitis Lipoma in the soft tissue right neck musculature, 4 x 1 x 5 cm Partially visualized descending thoracic aortic aneurysmal dilatation with extensive thrombus, axial image 252, difficult to measure No common carotid carotid bifurcation or significant internal carotid artery stenoses Codominant vertebral arteries with no critical stenoses No cerebral large vessel occlusions or thrombus Impression: Acute left sphenoid sinusitis Partially visualized descending thoracic aortic aneurysmal dilatation with extensive thrombus, recommend CTA chest post intravenous contrast follow-up No significant neck arterial stenoses No cerebral large vessel occlusions or thrombus Recommend brain MRI MRA without contrast, stroke protocol, follow-up
[2024-05-22 01:19] LABS: Basophils % (Auto) 0 % (0-2.5); Eosinophils # (Auto) 0.2 Thou/mm3 (0.0-0.5); Eosinophils % (Auto) 2 % (0-10); Hematocrit 39.6 % (41.0-53.0); Hemoglobin 13.9 g/dL (13.5-16.0); Immature Granulocytes % (Auto) 1 % (0-0); Immature Granulocytes Auto 0.06 Thou/mm3 (0.00-0.00); Lymphocytes # (Auto) 0.8 Thou/mm3 (1.0-4.8); Lymphocytes % (Auto) 9 % (10-50); Mean Corpuscular HGB Conc 35.1 g/dl (31.0-37.0); Mean Corpuscular Hemoglobin 31.4 pg (25.0-35.0); Mean Corpuscular Volume 90 fL (80-100); Monocytes # (Auto) 0.6 Thou/mm3 (0.0-0.8); Monocytes % (Auto) 7 % (0-12); Neutrophils # (Auto) 7.1 Thou/mm3 (1.8-7.7); Neutrophils % (Auto) 81 % (37-80); Nucleated Red Blood Cell % 0 /100 WBC (0); Platelet Count 144 Thou/mm3 (140-440); RDW Standard Deviation 46.3 fL (35.1-43.9); Red Blood Count 4.42 Miln/mm3 (4.50-5.90); White Blood Count 8.7 Thou/mm3 (3.8-10.6)
--- NOTE | 2024-05-22 01:23 | PRELIM_ITS ---
CT scan of the head without intravenous contrast (axial sections with sagittal and coronal reformats) May 22, 2024 0103 hoursClinical history: Focal neuro deficit, stroke suspected, lethargic from last 12 hours.Comparison: No prior study is available for comparison.Findings:The evaluation is sligh tly limited due to motion artifacts. There is no evidence of intracranial hemorrhage, mass effect or midline shift. Old lacunar infarcts are noted in the right periventricular white matter and anterior limb of left internal capsule. No definitive wedge shaped acute infarcts are detected. Please note th at subtle early infarcts are better assessed using diffusion weighted MR imaging if clinically indica brissa. The ventricles, sulci and basal cisterns are within normal limits. The calvarium is unremarkable . The mastoid air cells are clear. There is mild mucosal thickening in the bilateral ethmoid, sphenoi d and maxillary sinuses suggestive of chronic sinusitis.Impression:No evidence of acute infarct, intr acranial hemorrhage, mass effect or midline shift. If there are persistent clinical symptoms or addit ional clinical concerns, consider MRI. Other findings as described above. Discussion Details: Result s verbally communicated to : Dr. Costa at 01:11 AM 05/22/2024 Report Electronically Signed By: Matthew Gerardo 05/22/2024 1:23:12 AM [EST]
[2024-05-22 01:33] LABS: INR 1.6 (0.9-1.3); Prothrombin Time 16.7 Seconds (9.0-12.2)
[2024-05-22 01:35] LABS: Ammonia 30 uMol/L (11-32)
--- NOTE | 2024-05-22 01:37 | PC.NURSE ---
0030 Rapid response and Stroke alert called pt lethatgic not following commands. New orders carried out
--- NOTE | 2024-05-22 01:40 | PD.RESEVENT ---
Documentation for date of: 05/22/24 Event Note Event Note: Stroke alert was called around 00:30AM for change in mentation status. On presentation, V/S were stable: 128/83, HR 75, RR 34, and saturating 94% on 13L Oxymask. patient's GCS was 12 E(3), V(2), and M (5) since extubation around 2:30PM. Tele-neuro assessed patient and recommended CT Head w/o contrast, CT Angio Head/Neck, and MRI brain, as well as CBC, CMP, PT/PTT, and Ammonia. Heparin gtt was held. Will continue with Asa and Atorvastatin for now. Spoke with tele-neuro read of imaging, no large vessel occlusion seen and no hemorrhage or midline shift to explain current symptoms. Pending MRI brain and further recommendations to follow. Patient's care and plan discussed with my attending, Dr. Sanabria. Lizbeth Olivares, PGY-2
--- NOTE | 2024-05-22 01:44 | PC.NURSE ---
0030 Heparin Drip paused per Dr Shahzad masterson
--- NOTE | 2024-05-22 01:45 | ESCONSULT_ITS ---
Tele Neuro Consultation Consultation Date 05/22/24 Most Recent Vital Signs Last Vital Signs Temp 99.1 F 05/21/24 20:08 Pulse 75 05/22/24 00:26 Resp 27 H 05/22/24 00:26 BP 160/90 H 05/21/24 20:21 Pulse Ox 92 L 05/22/24 00:26 O2 Del Method Oxy Mask 05/21/24 20:08 O2 Flow Rate 13 05/22/24 00:26 FiO2 55 05/21/24 10:02 Laboratory-Coagulation Panel PT 16.7 Seconds (9.0-12.2) H 05/22/24 01:09 INR 1.6 (0.9-1.3) H 05/22/24 01:09 APTT 74.0 Seconds (22.0-36.0) H D 05/21/24 23:10 D-Dimer 1450 ng/mL (<600) H 05/19/24 20:27 Consultation Narrative [facility] Tele[facility]urology Consult [facility] Patient Name:???Lex De Date of :???1970 Identification Number:??? Date of Service:???05/22/2024 00:46:32 Diagnosis:?R41.89 - Unresponsive Impression: ?54 yo man who presented with hypertensive emergency and respiratory failure, recently extubated but with significant AMS/obtundation. I am not clear when he was last normal and therefore could not recommend thromoblytics. Certainly this could a stroke though the differential is wide. I did not see obvious acute pathology on head CT or CTA H/N (though read pending). ? ?From a neurologic standpoint, I would continue aspirin and hold heparin gtt but if he does need heparin gtt, then I do not recommend bolus dosing, and if he were to worsen further then repeat head CT and turn off the heparin gtt. ? ?Recommend brain MRI. Please have neurology follow. Our recommendations are outlined below. Recommendations: ? Stroke/Telemetry Floor ? Neuro Checks ? Bedside Swallow Eval ? DVT Prophylaxis ? IV Fluids, Normal Saline ? Head of Bed 30 Degrees ? Euglycemia and Avoid Hyperthermia (PRN Acetaminophen) Sign Out: ? Discussed with Primary Attending Metrics: Last Known Well: Unknown Dispatch Time: 05/22/2024 00:46:31 Initial Response Time: 05/22/2024 00:48:07Symptoms: unresponsive. Initial patient interaction: 05/22/2024 00:50:40 NIHSS Assessment Completed: 05/22/2024 00:54:19Patient is not a candidate for Thrombolytic. Thrombolytic Medical Decision: 05/22/2024 00:54:20Patient was not deemed candidate for Thrombolytic because of following reasons: LKW outside 4.[address] head showed no acute hemorrhage or acute core infarct. Primary Provider Notified of Diagnostic Impression and Management Plan on: 05/22/2024 01:33:12 Spoke With: Dr. Olivares Able to Reach 05/22/2024 01:33:12 History of Present Illness:Patient is a 54 year old Male. Inpatient stroke alert was called for symptoms of unresponsive. This is a 54 yo man who is currently admitted for acute hypoxic respiratory failure and hypertensive emergency. I am told that at one point his systolic BP was greater than 200. It was treated but BP dropped significantly and he became altered as well as hypoxic. He was intubated. He was then extubated yesterday afternoon (05/21) and apparently has been altered since, though there is an ICU downgrade note stating that the patient was somnolent but alert and oriented x3. But I do not know if he was n eurologically normal and current staff around him is not sure when he was last normal. At some point, he must have become more obtunded. It is for essentially a comatose state that a stroke alert is called this morning. He will briefly turn his head towards an examiner who calls his name but does not really open eyes. Does not follow commands. He is very weak all over to pain, but has some movement of the right arm and leg and no movement of the left side. Past Medical History: ?Hypertension Other PMH:? CKD Medications: Anticoagulant use:??Yes?heparin gtt Antiplatelet use:?Yes?aspirin Reviewed EMR for current medications Allergies:? Allergies Unable To Obtain Due To:?Patient Is Obtunded/ Comatose Social History: Drug Use: Yes Family History: Family History Cannot Be Obtained Because:Patient Is Obtunded/ Comatose ROS :?ROS Cannot Be Obtained Because:? Patient Is Obtunded/ Comatose Past Surgical History: Past Surgical History Cannot Be Obtained Because: Patient Is Obtunded/ Comatose NIHSS may not be reliable due to: Patient is comatose Examination: BP(128/83),?Pulse(75), 1A: Level of Consciousness - Movements to Pain?+ 2 1B: Ask Month and Age - Aphasic?+ 2 1C: Blink Eyes & Squeeze Hands - Performs 0 Tasks?+ 2 2: Test Horizontal Extraocular Movements - Normal?+ 0 3: Test Visual Pedersen - No Visual Loss?+ 0 4: Test Facial Palsy (Use Grimace if Obtunded) - Normal symmetry?+ 0 5A: Test Left Arm Motor Drift - No Movement?+ 4 5B: Test Right Arm Motor Drift - No Effort Against Summit?+ 3 6A: Test Left Leg Motor Drift - No Movement?+ 4 6B: Test Right Leg Motor Drift - No Effort Against Summit?+ 3 7: Test Limb Ataxia (FNF/Heel-Stokes) - No Ataxia?+ 0 8: Test Sensation - Normal; No sensory loss?+ 0 9: Test Language/Aphasia - Coma/Unresponsive?+ 3 10: Test Dysarthria - Mute/Anarthric?+ 2 11: Test Extinction/Inattention - No abnormality?+ 0 NIHSS Score:?25 Pre-Morbid Modified Hanalei Scale:Unable to assess Spoke with :?Dr. Olivares This consult was conducted in real time using interactive audio and video technology. Patient was informed of the technology being used for this visit and agreed to proceed. Patient located in hospital and provider located at home/office setting. Patient is being evaluated for possible acute neurologic impairment and high probability of imminent or life-threatening deterioration. I spent total of 30 minutes providing care to this patient, including time for face to face visit via telemedicine, review of medical records, imaging studies and discussion of findings with providers, the patient and/or family. Dr Thomas Ybarra [facility] For Inpatient follow-up with [facility] physician please call [facility] at . As we are not an outpatient service for any post hospital di conor needs please contact the hospital for assistance. If you have any questions for the [facility] physicians or need to reconsult for clinical or diagnostic changes please contact us via [facility] at .
[2024-05-22 02:00] LABS: Alanine Aminotransferase 131 U/L (10-49); Albumin, Serum 2.8 gm/dL (3.5-5.0); Alkaline Phosphatase 79 U/L (46-116); Anion Gap 12 (7-16); Aspartate Amino Transferase 164 U/L (0-34); BUN/Creatinine Ratio 22 Ratio (12-20); Bilirubin,Total 3.8 mg/dL (0.3-1.2); Blood Urea Nitrogen 56 mg/dL (9-23); Calcium 8.6 mg/dL (8.3-10.6); Calcium (Corrected) 9.6 mg/dL (8.5-10.1); Carbon Dioxide 26.8 mMol/L (20.0-31.0); Chloride 99 mMol/L (98-107); Creatinine (Component) 2.6 mg/dL (0.6-1.3); Estimated Creatinine Clearance 35.2 mL/min (>60); Globulin 2.8 gm/dL (2.3-3.5); Glucose 86 mg/dL (74-106); Osmolality,Calculated 290 (275-295); Potassium 3.1 mMol/L (3.4-5.1); Sodium 138 mMol/L (136-145); Total Protein 5.6 gm/dL (5.7-8.2); eGFR 28 See Note
--- NOTE | 2024-05-22 02:05 | PRELIM_ITS ---
CT angiogram of the head and neck with intravenous contrast (axial sections with sagittal and coronal reformats) May 22, 2024 at 0111 hoursClinical History: Rule out stroke.Comparison: Concurrent n oncontrast CT head performed today.Findings:Head: The internal carotid, middle and anterior cerebral arteries are patent bilaterally. The intracranial vertebral arteries are patent. The vertebrobasilar junction, basilar and posterior cerebral arteries are patent. No evidence of large vessel occlusion, critical stenosis or aneurysm.Neck: The aortic arch to the extent visualized as well as the origins o f the right brachiocephalic, left common carotid, and left subclavian arteries demonstrates mild athe romatous calcifications and are patent. 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 The common carotid arteries, carotid bulbs, and internal and external carotid arteries are otherwise patent.The origins of the vertebral arteries are unremarkable. The vertebral arteries are codominant. No evidence of vascular occlusion, critical stenosis, dissection or aneurysm.The soft tis sues of the neck are unremarkable. Degenerative changes are identified in the spine. There is intramu scular lipoma in the right paraspinal muscles at C4, C5 and C6 levels, measuring 4.4 x 1.1 x 7 cm (AP x TR x CC) dimensions. There is a small subpleural bullae at the right lung apex. There is peribronc hial soft tissue thickening in bilateral lungs, consistent with chronic airways disease.Impression: H ead: 1. No evidence of large vessel occlusion, critical stenosis or aneurysm.2. Other findings as carissa cribed above. Neck: 3. No evidence of vascular occlusion, critical stenosis, dissection or aneurysm.4 . 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 Peribronchial soft tissue thickening in bilateral lungs, consistent with ch ronic airways disease.6. Other findings as described above. Suggest further evaluation with CT chest if clinically indicated. Discussion Details: Results Discussed With : Dr. Costa at 01:55 AM 05/22 Report Electronically Signed By: Tucker Gerardo 05/22/2024 2:04:25 AM [EST]
[2024-05-22 06:47] LABS: Lactate (Lactic Acid) 2.2 mMol/L (0.4-2.0)
[2024-05-22 06:54] LABS: Basophils % (Auto) 0 % (0-2.5); Eosinophils % (Auto) 0 % (0-10); Hematocrit 40.5 % (41.0-53.0); Immature Granulocytes % (Auto) 1 % (0-0); Immature Granulocytes Auto 0.14 Thou/mm3 (0.00-0.00); Lymphocytes # (Auto) 0.8 Thou/mm3 (1.0-4.8); Lymphocytes % (Auto) 7 % (10-50); Mean Corpuscular HGB Conc 34.6 g/dl (31.0-37.0); Mean Corpuscular Hemoglobin 31.5 pg (25.0-35.0); Mean Corpuscular Volume 91 fL (80-100); Monocytes # (Auto) 0.5 Thou/mm3 (0.0-0.8); Monocytes % (Auto) 5 % (0-12); Neutrophils # (Auto) 9.1 Thou/mm3 (1.8-7.7); Neutrophils % (Auto) 87 % (37-80); Nucleated Red Blood Cell % 0 /100 WBC (0); Platelet Count 161 Thou/mm3 (140-440); RDW Standard Deviation 47.5 fL (35.1-43.9); Red Blood Count 4.44 Miln/mm3 (4.50-5.90); White Blood Count 10.5 Thou/mm3 (3.8-10.6)
[2024-05-22 07:09] LABS: Alanine Aminotransferase 128 U/L (10-49); Alkaline Phosphatase 76 U/L (46-116); Anion Gap 10 (7-16); Aspartate Amino Transferase 166 U/L (0-34); BUN/Creatinine Ratio 20 Ratio (12-20); Bilirubin,Total 4.3 mg/dL (0.3-1.2); Blood Urea Nitrogen 54 mg/dL (9-23); Calcium 8.3 mg/dL (8.3-10.6); Calcium (Corrected) 9.1 mg/dL (8.5-10.1); Carbon Dioxide 28.8 mMol/L (20.0-31.0); Chloride 98 mMol/L (98-107); Creatinine (Component) 2.7 mg/dL (0.6-1.3); Estimated Creatinine Clearance 33.9 mL/min (>60); Glucose 91 mg/dL (74-106); Magnesium 1.8 mg/dL (1.6-2.6); Osmolality,Calculated 288 (275-295); Phosphorous 4.9 mg/dL (2.4-5.1); Potassium 2.9 mMol/L (3.4-5.1); Sodium 137 mMol/L (136-145); Vancomycin,Random 15.4 mcg/mL; eGFR 27 See Note
--- NOTE | 2024-05-22 07:24 | XR_ITS ---
Examination: AP chest single view Technique one AP portable upright chest single view Exam date and time: May 22, 2024 0815 hours Comparison May 21, 2024 INDICATIONS: Shortness of breath this week, hypoxic respiratory failure postintubation FINDINGS: The patient has been extubated Mild pneumonia at the lung bases Mild enlargement cardiac contour The osseous structures are intact IMPRESSION: Mild bibasilar pneumonia
[2024-05-22 08:38] LABS: Creatine Kinase 926 U/L (34-171)
--- NOTE | 2024-05-22 09:01 | ESCONSULT_ITS ---
HPI Data of Consult Requesting Physician: Carlos Sanabria MD Admitting Provider: Carlos Sanabria MD Attending Provider: Carlos Sanabria MD Primary Care Provider: Mateo Hernandez MD Consult Narrative History of present illness: 54 yrs old with PMH of HTN, ckd, heart failure with preserved EF , meth use was admitted on 05/19/20 for HTN emergency and Acute hypoxic respi failure requiring intubation and MV . rapid respons was called over night , for change in mentation and neurology was consulted. Thrombolytic was not recommended by tele neuro last night because unclear of his last well known .Head ct was negative for acute bleed. PMH- as above Allergies:?none Family History: could not be obtained because pt is obtunded cc:: cc: Carlos Sanabria MD Review of Systems Review of Systems ROS Unobtainable: unobtainable due to mental status Narrative Review of Systems: GENERAL: patient obtunded, open eyes when called his name, is on high flow HEENT: Normocephalic, atraumatic. Pupils are equal and reactive. Oral mucosa is moist. NECK: Supple, nontender, no JVD CHEST: Symmetrical, atraumatic and with equal expansion ,Nontender on palpation CARDIOVASCULAR: Heart regular rhythm & rate. S1/S2. no murmur or gallop rub or extra beats. LUNGS: Clear to auscultation bilaterally with symmetrical chest rise. No laboring tachypnea or wheezing. No intercostal subcostal retraction. No rales and no rhonchi. ABDOMEN: Soft, flat, nontender to palpation, no guarding or rebound tenderness. Active and normal bowel sounds. SKIN: Warm and dry, no jaundice , NEURO:unable to do neuro exam ,secondary to pt mentation PSYCHIATRIC: unable to obtain due to pt mentation. Exam Vital Signs Temp Pulse Resp BP Pulse Ox O2 Del Method O2 Flow Rate 97.9 F 75 18 114/79 93 L Oxy Mask 15 05/22/24 08:00 05/22/24 08:00 05/22/24 08:00 05/22/24 08:00 05/22/24 08:00 05/22/24 08:00 05/22/24 08:00 FiO2 55 05/22/24 08:00 Results Labs 05/25/24 04:19 05/25/24 04:19 Labs: Short CBC 05/22/24 05/22/24 Range/Units 01:09 06:28 WBC 8.7 10.5 (3.8-10.6) Thou/mm3 Hgb 13.9 D 14.0 (13.5-16.0) g/dL Hct 39.6 L 40.5 L (41.0-53.0) % Plt Count 144 D 161 (140-440) Thou/mm3 BMP 05/21/24 05/22/24 05/22/24 17:50 01:09 06:28 Sodium 137 138 137 Potassium 2.8 L D 3.1 L 2.9 L Chloride 98 99 98 Carbon Dioxide 27.8 26.8 28.8 BUN 46 H 56 H 54 H Creatinine 2.2 H 2.6 H 2.7 H Glucose 77 86 91 Calcium 9.0 8.6 8.3 Cardiac Enzymes 05/21/24 05/21/24 05/22/24 Range/Units 13:44 17:50 01:09 Total Creatine Kinase Cancelled Troponin I 2.926 H* D 2.721 H* D (0.0-0.045) ng/mL 05/22/24 Range/Units 06:28 Total Creatine Kinase 926 H Troponin I (0.0-0.045) ng/mL Liver Function 05/21/24 05/22/24 05/22/24 Range/Units 17:50 01:09 06:28 Total Bilirubin 3.8 H 4.3 H D (0.3-1.2) mg/dL AST 164 H 166 H (0-34) U/L ALT 131 H 128 H (10-49) U/L Alkaline Phosphatase 79 D 76 (46-116) U/L Albumin 3.5 D 2.8 L D 3.0 L (3.5-5.0) gm/dL ABG Interpretation ABG results: 05/20/24 05/21/24 05/22/24 17:52 04:45 00:39 ABG pH 7.36 7.42 7.53 H D ABG pCO2 33 44 D 38 ABG pO2 375 H 107 D 43 L* D ABG HCO3 19 L 29 H 31 H ABG O2 Saturation 101 H 98 80 L ABG Base Excess -6 L 3 8 H 05/22/24 00:56 ABG pH 7.50 H ABG pCO2 40 ABG pO2 64 L D ABG HCO3 31 H ABG O2 Saturation 93 ABG Base Excess 7 H Quality Measures Quality Measures none Medications Home Medications and Allergies Home Medications ?Medication ?Instructions ?Recorded ?Confirmed ?Type bumetanide 2 mg tablet 2 mg PO QDAY 12/05/23 05/21/24 History Allergies Allergy/AdvReac Type Severity Reaction Status Date / Time No Known Allergies Allergy Verified 12/05/23 10:13 Visit Medications Acetaminophen (Acetaminophen 325 Mg Tablet) 650 mg PO Q6H PRN PRN Reason: Pain 1-3 or Fever >100.3 Stop: 06/19/24 01:02 Last Admin: 05/21/24 18:34 Dose: 650 mg Albuterol/Ipratropium (Albuterol/Ipratropium (Duoneb) Rt Yuli 3 Ml Nebu) 3 ml INH Q6HRRT [facility] Stop: 06/20/24 12:59 Last Admin: 05/22/24 07:06 Dose: 3 ml Bumetanide (Bumetanide Inj 0.25 Mg/Ml Vial 4 Ml) 2 mg IVP BID [facility] Stop: 06/20/24 08:59 Last Admin: 05/21/24 20:20 Dose: 2 mg Carvedilol (Carvedilol 12.5 Mg Tablet) 12.5 mg PO BIDWM [facility] Stop: 06/20/24 08:29 Last Admin: 05/21/24 17:37 Dose: 12.5 mg Hydralazine HCl (Hydralazine Inj 20 Mg/Ml Vial) 10 mg IV Q4HR PRN PRN Reason: SBP>180 Stop: 06/20/24 08:24 Hydralazine HCl (Hydralazine Hcl 25 Mg Tablet) 50 mg PO BID [facility] Stop: 06/20/24 15:34 Last Admin: 05/21/24 20:21 Dose: 50 mg Heparin Sodium/Dextrose (Heparin In D5w Ivpb) 25,000 unit in 250 mls @ 10.704 mls/hr IV .[id number] [facility]; Protocol Stop: 06/04/24 14:59 Last Titration: 05/22/24 00:46 Dose: 0 units/kg/hr, 0 mls/hr Piperacillin/Tazobactam/Dextrose (Zosyn) 3.375 gm in 50 mls @ 12.5 mls/hr IV Q8HR [facility] Stop: 05/29/24 02:59 Last Admin: 05/22/24 05:01 Dose: Not Given Vancomycin/Sodium Chloride (Vancomycin/Ns 500 Mg Ivpb) 100 mls @ 120 mls/hr IV X1 ONE Stop: 05/22/24 10:49 Ondansetron HCl (Ondansetron Inj 2 Mg/Ml Inj 2 Ml) 4 mg IV Q6H PRN; Protocol PRN Reason: NAUSEA OR VOMITING Stop: 06/19/24 01:02 Pantoprazole Sodium (Pantoprazole Inj 40 Mg Vial) 40 mg IVP [facility] Stop: 06/19/24 20:59 Last Admin: 05/21/24 20:21 Dose: 40 mg Pharmacy Consult (Pharmacy Renal Dose Adjustment 1 Ea) 1 each XX PRN PRN PRN Reason: CONSULT Stop: 06/20/24 08:41 Pharmacy Consult (Vancomycin Pharmacy To Dose 1 Each Each) 1 each IV QDAY PRN PRN Reason: PROTOCOL Stop: 06/20/24 19:14 Sennosides (Senna Tablet) 1 tab PO QDAY [facility]; Protocol Stop: 06/19/24 08:59 Last Admin: 05/21/24 08:49 Dose: 1 tab Tamsulosin HCl (Tamsulosin Hcl 0.4 Mg Capsule) 0.4 mg PO [facility] Stop: 06/19/24 20:59 Discontinued Medications Amlodipine Besylate (Amlodipine Besylate 5 Mg Tablet) 10 mg PO QDAY [facility] Stop: 06/19/24 08:59 Last Admin: 05/20/24 10:40 Dose: 10 mg Bumetanide (Bumetanide 0.5 Mg Tablet) 2 mg PO BID [facility] Stop: 06/19/24 01:14 Last Admin: 05/20/24 11:11 Dose: Not Given Bumetanide (Bumetanide Inj 0.25 Mg/Ml Vial 4 Ml) 2 mg IVP X1 ONE Stop: 05/20/24 09:26 Bumetanide (Bumetanide Inj 0.25 Mg/Ml Vial 4 Ml) 2 mg IVP BID [facility] Stop: 06/19/24 09:29 Last Admin: 05/20/24 10:39 Dose: 2 mg Bumetanide (Bumetanide Inj 0.25 Mg/Ml Vial 4 Ml) 2 mg IVP BID [facility] Stop: 06/20/24 08:59 Last Admin: 05/21/24 08:49 Dose: 2 mg Calcium Chloride (Calcium Chloride 10% Inj 10 Ml Syrg) 10 ml IV X1 ONE Stop: 05/20/24 17:56 Last Admin: 05/20/24 18:24 Dose: 10 ml Carvedilol (Carvedilol 12.5 Mg Tablet) 12.5 mg PO BIDWM [facility] Stop: 06/20/24 08:29 Last Admin: 05/21/24 08:49 Dose: 12.5 mg Clonidine (Clonidine Hcl 0.1 Mg Tablet) 0.2 mg PO X1 ONE Stop: 05/19/24 23:23 Last Admin: 05/19/24 23:26 Dose: 0.2 mg Dextrose (Dextrose 50%-Water Inj 50 Ml Syringe) 50 ml IV X1 ONE Stop: 05/22/24 00:39 Last Admin: 05/22/24 01:32 Dose: Not Given Etomidate (Etomidate Inj 2 Mg/Ml Vial 10 Ml) 20 mg IVP X1 ONE Stop: 05/20/24 16:55 Last Admin: 05/20/24 16:58 Dose: 20 mg Etomidate (Etomidate Inj 2 Mg/Ml Vial 10 Ml) 20 mg IVP X1 ONE Stop: 05/20/24 17:46 Last Admin: 05/20/24 17:15 Dose: 20 mg Gabapentin (Gabapentin 300 Mg Capsule) 300 mg PO QDAY [facility] Stop: 06/19/24 08:59 Last Admin: 05/20/24 10:41 Dose: 300 mg Heparin Sodium (Porcine) (Heparin Sod Inj 5000 Unit/Ml Vial) 5,000 unit SC TID [facility] Stop: 06/03/24 21:59 Last Admin: 05/21/24 14:57 Dose: Not Given Hydralazine HCl (Hydralazine Inj 20 Mg/Ml Vial) 20 mg IV X1 ONE Stop: 05/19/24 22:01 Last Admin: 05/19/24 22:12 Dose: 20 mg Hydralazine HCl (Hydralazine Hcl 25 Mg Tablet) 50 mg PO TID [facility] Stop: 06/19/24 10:14 Last Admin: 05/20/24 15:44 Dose: Not Given Fentanyl Citrate (Sublimaze Inj 2,500 Mcg/250 Ml Bag) 2,500 mcg in 250 mls @ 2.5 mls/hr IV .Q24H PRN; Protocol PRN Reason: PER PROTOCOL Stop: 05/25/24 16:55 Last Titration: 05/21/24 08:00 Dose: 0 mcg/hr, 0 mls/hr Propofol (Diprivan Ivpb) 1,000 mg in 100 mls @ 2.994 mls/hr IV .Q24H PRN; Protocol PRN Reason: PER PROTOCOL Stop: 06/19/24 16:55 Last Titration: 05/21/24 08:00 Dose: 0 mcg/kg/min, 0 mls/hr Norepinephrine/Dextrose (Levophed In D5w 8mg/250ml) 8 mg in 250 mls @ 9.355 mls/hr IV .Q24H PRN; Protocol PRN Reason: PER PROTOCOL Stop: 06/19/24 17:25 Last Titration: 05/20/24 20:30 Dose: 0 mcg/kg/min, 0 mls/hr Lactated Ringer's (Lactated Ringers) 1,000 mls @ 999 mls/hr IV .Q1H1M ONE Stop: 05/20/24 19:07 Last Infusion: 05/20/24 20:31 Dose: Infused Calcium Chloride 10 ml/ Sodium (Chloride) 110 mls @ 110 mls/hr IV X1 ONE Stop: 05/20/24 18:44 Last Infusion: 05/20/24 20:49 Dose: Infused Calcium Chloride 10 ml/ Sodium (Chloride) 110 mls @ 110 mls/hr IV X1 ONE Stop: 05/20/24 19:17 Last Infusion: 05/20/24 20:50 Dose: Infused Norepinephrine/Dextrose (Levophed In D5w 8mg/250ml) 8 mg in 250 mls @ 9.355 mls/hr IV .Q24H PRN; Protocol PRN Reason: PER PROTOCOL Stop: 06/19/24 17:25 Norepinephrine/Dextrose (Levophed In D5w 8mg/250ml) 8 mg in 250 mls @ 9.355 mls/hr IV .Q24H PRN; Protocol PRN Reason: PER PROTOCOL Stop: 06/19/24 17:25 Last Titration: 05/21/24 01:02 Dose: 0 mcg/kg/min, 0 mls/hr Potassium Chloride (Kcl Ivpb) 10 meq in 100 mls @ 100 mls/hr IV Q1H [facility] Stop: 05/21/24 09:58 Last Infusion: 05/21/24 22:38 Dose: Infused Ampicillin Sodium/Sulbactam (Sodium 1.5 gm/ Sodium Chloride) 50 mls @ 100 mls/hr IV Q6HR [facility] Stop: 05/28/24 08:44 Last Infusion: 05/21/24 22:38 Dose: Infused Ampicillin Sodium/Sulbactam (Sodium 3 gm/ Sodium Chloride) 50 mls @ 100 mls/hr IV Q6HR [facility] Stop: 05/29/24 00:00 Piperacillin/Tazobactam/Dextrose (Zosyn) 3.375 gm in 50 mls @ 100 mls/hr IV X1 ONE Stop: 05/21/24 19:44 Last Infusion: 05/21/24 22:38 Dose: Infused Vancomycin HCl (Vancomycin/Water 1250 Mg Ivpb) 250 mls @ 120 mls/hr IV X1 ONE Stop: 05/21/24 21:34 Last Infusion: 05/21/24 22:38 Dose: Infused Labetalol HCl (Labetalol Inj 5 Mg/Ml Vial 20 Ml) 10 mg IVP Q6HR PRN PRN Reason: SBP >170 DBP>110 HR>80 Stop: 06/19/24 01:10 Last Admin: 05/20/24 12:24 Dose: 10 mg Labetalol HCl (Labetalol 100 Mg Tablet) 100 mg PO BID [facility] Stop: 06/19/24 08:59 Last Admin: 05/20/24 11:11 Dose: Not Given Lorazepam (Lorazepam 2 Mg/Ml Vial) 1 mg IVP X1 ONE Stop: 05/20/24 17:31 Last Admin: 05/20/24 17:33 Dose: 1 mg Losartan Potassium (Losartan Potassium 25 Mg Tablet) 100 mg PO X1 ONE Stop: 05/19/24 22:01 Last Admin: 05/19/24 22:13 Dose: 100 mg Midazolam HCl (Midazolam Inj 1 Mg/Ml Vial 2 Ml) 2 mg IV X1 ONE Stop: 05/21/24 04:26 Last Admin: 05/21/24 04:33 Dose: Not Given Nifedipine (Nifedipine 10 Mg Capsule) 30 mg PO TID [facility] Stop: 06/19/24 15:14 Last Admin: 05/20/24 15:47 Dose: 30 mg Nitroglycerin (Nitroglycerin 0.4 Mg Subl Btl #25) 0.4 mg SL Q5MIN PRN PRN Reason: CHEST PAIN Pharmacy Consult (Vancomycin Pharmacy To Dose 1 Each Each) 1 each IV QDAY [facility] Stop: 06/20/24 19:14 Last Admin: 05/21/24 20:32 Dose: Not Given Potassium Chloride (Potassium Chloride 20 Meq Tabcr) 40 meq PO X1 ONE Stop: 05/20/24 09:23 Last Admin: 05/20/24 10:47 Dose: 40 meq Potassium Chloride (Potassium Chloride 20 Meq Tabcr) 20 meq PO X1 ONE Stop: 05/20/24 11:01 Last Admin: 05/20/24 10:47 Dose: 20 meq Sevelamer Carbonate (Sevelamer Carbonate 800 Mg Tablet) 800 mg PO X1 ONE Stop: 05/20/24 10:19 Last Admin: 05/20/24 12:07 Dose: 800 mg Sevelamer Carbonate (Sevelamer Carbonate 800 Mg Tablet) 800 mg PO BID [facility] Stop: 06/20/24 11:29 Last Admin: 05/21/24 20:21 Dose: 800 mg Spironolactone (Spironolactone 25 Mg Tablet) 25 mg PO QDAY [facility] Stop: 06/20/24 11:29 Spironolactone (Spironolactone 25 Mg Tablet) 25 mg NG QDAY [facility] Stop: 06/20/24 11:29 Last Admin: 05/21/24 12:13 Dose: 25 mg Succinylcholine Chloride (Succinylcholine Inj 20 Mg/Ml Vial 10 Ml) 100 mg IV X1 ONE Stop: 05/20/24 16:55 Last Admin: 05/20/24 16:59 Dose: 100 mg Tamsulosin HCl (Tamsulosin Hcl 0.4 Mg Capsule) 0.4 mg PO QDAY [facility] Stop: 06/19/24 08:59 Last Admin: 05/20/24 11:11 Dose: Not Given Assessment & Plan Assessment 54 yrs old with PMH of HTN, ckd. heart failure with preserved EF , meth use was admitted on 05/19/20 for HTN emergency and man who presented with hypertensive emergency and Acute hypoxic respi failure . rapid respons was called over night , for change in mentation and neurology was consulted. Thrombolytic was not recommended by tele neuro last night because unclear of his last well known . head ct was negative for acute bleed. ? ? #stroke workup -sudden change in mentation overnight, pt is still obtunded, is on high flow -Head ct -Negative for acute hemorrhage, mass effect or midline shift -head/neck CTA- Acute left sphenoid sinusitis,Partially visualized descending thoracic aortic aneurysmal dilatation with extensive thrombus, recommend CTA chest post intravenous contrast follow-up,No significant neck arterial stenoses,No cerebral large vessel occlusions or thrombus -Echo on 05/20 showed Small LV size, moderate LVH with low normal ejection fraction at around 50% Flattened interatrial septum in both systole and diastole indicating both RV pressure and volume overload. Severely dilated right ventricle with moderate RV systolic dysfunction and massively dilated right atrium. Moderate to severe TR and estimated RVSP around 60 mmHg indicating moderate to severe pulmonary hypertension, Trace MR and dilated IVC -Lipid pannel wnl ,TSH 2.39 ,ammonia 30 -Patient is not a candidate for Thrombolytic.LWN >4,5 hrs -Bedside Swallow Eval -DVT Prophylaxis -IV Fluids, Normal Saline -Head of Bed 30 Degrees -Euglycemia and Avoid Hyperthermia (PRN Acetaminophen) -Pending MRI -rest medical management as per primary team . Case discussed with my attending Dr Olivares, Ray Barajas MD,PGY-3 Attending Provider Attestation/Addendum I personally have seen and examined the patient at the bedside and agree with resident findings, assessment and plan of care. Continue with current management. Continue to follow the patient closely, noted patient's mental status is gradually improving compared to this morning.
[2024-05-22] MEDS: BUMETANIDE INJ 0.25 MG/ML VIAL 4 ML 2 MG IVP (09:20)
[2024-05-22] MEDS: POTASSIUM CHL 10 mEq IVPB 10 MEQ/100 ML BAG 100 MEQ IV ×6 (09:20→15:21)
[2024-05-22] MEDS: Magnesium Sulfate 2 GM Ivpb 2 GM/50 ML BAG IV (09:24)
[2024-05-22 09:39] LABS: Partial Thromboplastin Time 39.2 Seconds (22.0-36.0)
[2024-05-22 09:45] LABS: Reflex Lactate? Y
[2024-05-22 10:16] LABS: Lactic Acid, 3 HR 2.1 mMol/L (0.4-2.0)
[2024-05-22] MEDS: VANCOMYCIN/NS 500 MG IVPB 100 ML 120 MG IV (10:17)
--- NOTE | 2024-05-22 12:28 | ESPR_ITS ---
<Statement entered by Julien Alas MD - 05/22/24 15:22> Patient was seen and examined at the bedside. Overnight, stroke alert was initiated given patient's altered mentation and not responding to commands. Head CT was negative for hemorrhage or ischemic changes. Head and neck CTA was significant for thrombosis in thoracic aorta. Patient was seen on high flow nasal cannula at this morning and he was desatting as low as 80s. Patient continues to remain altered however open his eyes spontaneously. Patient did not had focal neurological deficit. Teleneuro recommended if patient needs to be on heparin drip due to concern for thoracic aorta thrombosis we can continue it without bolus. Currently we are continuing Zosyn for possible community- acquired pneumonia and fever spike last night. Awaiting blood culture results. Additionally, they are continuing heparin drip for possible PE. Holding CTA chest given we are already treating the patient for possible PE and thoracic aorta thrombosis. Material Requisitioner was consulted and she recommended that if patient will need dialysis temporarily in case of declining kidney functions they can proceed with that and family is agreeable to the plan. We held Bumex and blood pressure medication given soft blood pressure. MRSA screen was negative therefore vancomycin was discontinued. Neurology and cardiology recommendations are pending. Electrolytes were repleted. 60 mEq KCl x 1. LFTs and T. bili slowly improving. All labs and orders were reviewed. #Problem list, #Acute toxic metabolic encephalopathy likely multifactorial ?DDx: Hypoxia, sepsis, PE, thoracic aortic thrombosis, ?stroke, history methamphetamine use, HFpEF #Methamphetamine abuse disorder #Marijuana abuse disorder -Head CT was negative. Head and neck CTA showed thoracic aorta thrombosis. -Head/Neck CTA showed Acute left sphenoid sinusitis Partially visualized descending thoracic aortic aneurysmal dilatation with extensive thrombus, recommend CTA chest post intravenous contrast follow-up -Treating underlying infection with Zosyn and continuing high flow nasal cannula with heparin drip -Follow-up on MRI brain stroke protocol - Neuro following, appreciate recs -Neurochecks every 4 hourly #?Cardiogenic shock, Resolved #Hypertensive emergency, resolved #Hypotension #HFpEF EF 50% with global hypokinesis DDx: Possible hypotension related to PE versus thoracic aorta thrombosis, medications induced, HFpEF pulmonary arterial hypertension -Holding antihypertensives and diuresis #?NSTEMI Type I vs II -Troponin I peaked at 2.7 -Denied chest no acute changes seen on EKG -Continue heparin drip #Acute hypoxic respiratory failure likely due to possible PE vs Thoracic aorta thrombus -Echo showed Small LV size, moderate LVH with low normal ejection fraction at around 50%.Flattened interatrial septum in both systole and diastole indicating both RV pressure and volume overload.Severely dilated right ventricle with moderate RV systolic dysfunction and massively dilated right atrium.Moderate to severe TR and estimated RVSP around 60 mmHg indicating moderate to severe pulmonary hypertension. Trace MR and dilated IVC -Continue heparin drip -Cardio recs pending -Holding off CTA chest #?Cystic lung disease -Follow-up on LEONARDO levels -Pending cocci #Cirrhosis likely secondary to alcohol abuse in the past #Hyperbilirubinemia, #Mild transaminitis -Methamphetamine use, remote history of alcohol use, HFpEF -Trending LFTs and treating underlying condition #LATASHA on CKD stage IIIb DDx: Possible cardiorenal, ATN, obstructive -Nephrology is following the case -Family is agreeable to temporary dialysis if needed -Holding diuresis -Spironolactone was discontinued -Avoiding nephrotoxic agents -Strict WES's with fluid restriction I saw and examined the patient, and I agree with current management stated by Dr Fiorella MD,PGY1. Plan of care was discussed with the attending physician and resident physician. Disclaimer: Despite multiple revisions, due to the dictation software being used, the document bellow may not be free of grammatical errors including phonetic/typographic errors. However, this does not deter from our commitment to providing health care in the patient's best interest in mind. Dr. Evette MD, PGY 2 Documentation for date of: 05/22/24 Subjective Subjective Interval history: Patient is a 54-year-old male with a past medical history of hypertension, chronic kidney disease stage III, history of congestive heart failure HFpEF- diastolic dysfunction stage I 50 to 55% (03/15/2023), and history of polysubstance use disorder (meth/THC). Mario was down graded on (05/22/2024) from ICU after being intubated for shock, GCS <10, and decomponsated oxygen saturation. Overnight RR was called for patient for increased altered mental status. Stroke protocal iniitaited over concern for stroke, MRI brain and CTA Neck ordered. Patient examined at bedside. Mario is alert and orientated but is less quick to reply to questions. Understand he is currently hospitilized. Mario denied chest pain despite elevated troponin but no ST changes on EKG. Family present at bedside. Exam Vital Signs Temp Pulse Resp BP Pulse Ox O2 Del Method O2 Flow Rate 97.9 F 74 30 H 114/79 96 Oxy Mask 18 05/22/24 08:00 05/22/24 12:11 05/22/24 12:11 05/22/24 09:21 05/22/24 12:11 05/22/24 08:00 05/22/24 12:11 FiO2 50 05/22/24 12:11 Narrative Exam General Appearance: Alert & Oriented X2, well-nourished male who is lying in bed in mild discomfort secondary to diffuse abdominal tenderness HEENT: Skull symmetrical and atraumatic. Conjunctivae pale pink and moist. Pupils equal, round, reactive to light and accommodation (PERRL). External ear without lesion or discharge. Dry Mucosa. Cardio: Normal Rate and Rhythm with S1 and S2 heart sounds. No murmurs or extra heart sounds auscultated. No bruits on carotid auscultation. improved edema +2 Lungs: Symmetric with good expansion. Chest and back non-tender. Breath sounds vesicular without crackles, wheezing or rhonchi Abdomen: Non-tender, Non-distended, Normal Reactive Bowel Sounds Neuro: YES Alert, YES cooperative, YES oriented to person, YES place, and No time. Speech clear. CN grossly intact. Upper motor strength 5/5 and Lower motor strength 5/5. Sensation intact. Objective Labs 05/23/24 05:07 05/23/24 05:07 Labs: Laboratory Results - last 24 hr 05/21/24 05/21/24 05/21/24 13:44 15:15 17:50 WBC RBC Hgb Hct MCV MCH MCHC RDW Std Deviation Plt Count Neut % (Auto) Lymph % (Auto) Ellis % (Auto) Eos % (Auto) Baso % (Auto) Neut # (Auto) Lymph # (Auto) Ellis # (Auto) Eos # (Auto) Baso # (Auto) Immature Gran # (Auto) Absolute Nucleated RBC Immature Gran % Nucleated RBC % PT 16.5 H INR 1.6 H APTT 30.3 Puncture Site ABG pH ABG pCO2 ABG pO2 ABG HCO3 ABG O2 Saturation ABG Base Excess Oxygen Liter Flow Sodium 137 Potassium 2.8 L D Chloride 98 Carbon Dioxide 27.8 Anion Gap 11 BUN 46 H Creatinine 2.2 H Estim Creat Clear Calc 41.6 L eGFR 35 L BUN/Creatinine Ratio 21 H Glucose 77 Calculated Osmolality 284 Lactic Acid Calcium 9.0 Corrected Calcium 9.4 Phosphorus 3.2 Magnesium Total Bilirubin AST ALT Alkaline Phosphatase Ammonia Total Creatine Kinase Troponin I 2.926 H* D 2.721 H* D Total Protein Albumin 3.5 D Globulin Albumin/Globulin Ratio Random Vancomycin 05/21/24 05/22/24 05/22/24 23:10 00:39 00:56 WBC RBC Hgb Hct MCV MCH MCHC RDW Std Deviation Plt Count Neut % (Auto) Lymph % (Auto) Ellis % (Auto) Eos % (Auto) Baso % (Auto) Neut # (Auto) Lymph # (Auto) Ellis # (Auto) Eos # (Auto) Baso # (Auto) Immature Gran # (Auto) Absolute Nucleated RBC Immature Gran % Nucleated RBC % PT INR APTT 74.0 H D Puncture Site Right Radial Right Radial ABG pH 7.53 H D 7.50 H ABG pCO2 38 40 ABG pO2 43 L* D 64 L D ABG HCO3 31 H 31 H ABG O2 Saturation 80 L 93 ABG Base Excess 8 H 7 H Oxygen Liter Flow 15 15 Sodium Potassium Chloride Carbon Dioxide Anion Gap BUN Creatinine Estim Creat Clear Calc eGFR BUN/Creatinine Ratio Glucose Calculated Osmolality Lactic Acid Calcium Corrected Calcium Phosphorus Magnesium Total Bilirubin AST ALT Alkaline Phosphatase Ammonia Total Creatine Kinase Troponin I Total Protein Albumin Globulin Albumin/Globulin Ratio Random Vancomycin 05/22/24 05/22/24 05/22/24 01:09 06:28 10:02 WBC 8.7 10.5 RBC 4.42 L 4.44 L Hgb 13.9 D 14.0 Hct 39.6 L 40.5 L MCV 90 91 MCH 31.4 31.5 MCHC 35.1 34.6 RDW Std Deviation 46.3 H 47.5 H Plt Count 144 D 161 Neut % (Auto) 81 H 87 H Lymph % (Auto) 9 L 7 L Ellis % (Auto) 7 5 Eos % (Auto) 2 0 Baso % (Auto) 0 0 Neut # (Auto) 7.1 9.1 H Lymph # (Auto) 0.8 L 0.8 L Ellis # (Auto) 0.6 0.5 Eos # (Auto) 0.2 0.0 Baso # (Auto) 0.0 0.0 Immature Gran # (Auto) 0.06 H 0.14 H Absolute Nucleated RBC 0.00 0.00 Immature Gran % 1 H 1 H Nucleated RBC % 0 0 PT 16.7 H INR 1.6 H APTT 39.2 H D Puncture Site ABG pH ABG pCO2 ABG pO2 ABG HCO3 ABG O2 Saturation ABG Base Excess Oxygen Liter Flow Sodium 138 137 Potassium 3.1 L 2.9 L Chloride 99 98 Carbon Dioxide 26.8 28.8 Anion Gap 12 10 BUN 56 H 54 H Creatinine 2.6 H 2.7 H Estim Creat Clear Calc 35.2 L 33.9 L eGFR 28 L 27 L BUN/Creatinine Ratio 22 H 20 Glucose 86 91 Calculated Osmolality 290 288 Lactic Acid 2.2 H 2.1 H Calcium 8.6 8.3 Corrected Calcium 9.6 9.1 Phosphorus 4.9 Magnesium 1.8 Total Bilirubin 3.8 H 4.3 H D AST 164 H 166 H ALT 131 H 128 H Alkaline Phosphatase 79 D 76 Ammonia 30 Total Creatine Kinase Cancelled 926 H Troponin I Total Protein 5.6 L 6.0 Albumin 2.8 L D 3.0 L Globulin 2.8 3.0 Albumin/Globulin Ratio 1.0 L 1.0 L Random Vancomycin 15.4 ABG Interpretation ABG results: 05/20/24 05/21/24 05/22/24 17:52 04:45 00:39 ABG pH 7.36 7.42 7.53 H D ABG pCO2 33 44 D 38 ABG pO2 375 H 107 D 43 L* D ABG HCO3 19 L 29 H 31 H ABG O2 Saturation 101 H 98 80 L ABG Base Excess -6 L 3 8 H 05/22/24 00:56 ABG pH 7.50 H ABG pCO2 40 ABG pO2 64 L D ABG HCO3 31 H ABG O2 Saturation 93 ABG Base Excess 7 H Quality Measures Quality Measures none Assessment & Plan Assessment Current Active Medications: Generic Name Dose Route Start Last Admin Trade Name Freq PRN Reason Stop Dose Admin Acetaminophen 650 mg 05/20/24 01:03 05/21/24 18:34 Acetaminophen 325 Mg Tablet PO 06/19/24 01:02 650 mg Q6H PRN Administration Pain 1-3 or Fever >100.3 Albuterol/Ipratropium 3 ml 05/21/24 13:00 05/22/24 12:08 Albuterol/Ipratropium (Duoneb) Rt Yuli 3 Ml Nebu INH 06/20/24 12:59 3 ml Q6HRRT MICAH Administration Bumetanide 2 mg 05/21/24 11:32 05/22/24 09:20 Bumetanide Inj 0.25 Mg/Ml Vial 4 Ml IVP 06/20/24 08:59 2 mg BID MICAH Administration Carvedilol 12.5 mg 05/21/24 11:32 05/22/24 08:00 Carvedilol 12.5 Mg Tablet PO 06/20/24 08:29 Not Given BIDWM MICAH Hydralazine HCl 10 mg 05/21/24 08:25 Hydralazine Inj 20 Mg/Ml Vial IV 06/20/24 08:24 Q4HR PRN SBP>180 Hydralazine HCl 50 mg 05/21/24 15:35 05/22/24 09:21 Hydralazine Hcl 25 Mg Tablet PO 06/20/24 15:34 Not Given BID MICAH Heparin Sodium/Dextrose 25,000 unit in 250 mls @ 10.704 mls/hr 05/21/24 15:00 05/22/24 00:46 Heparin In D5w Ivpb IV 06/04/24 14:59 0 units/kg/hr .[id number] MICAH 0 mls/hr Titration Protocol 12 UNITS/KG/HR Piperacillin/Tazobactam/Dextrose 3.375 gm in 50 mls @ 12.5 mls/hr 05/22/24 03:00 05/22/24 05:01 Zosyn IV 05/29/24 02:59 Not Given Q8HR MICAH Potassium Chloride 10 meq in 100 mls @ 100 mls/hr 05/22/24 09:15 05/22/24 11:36 Kcl Ivpb IV 05/22/24 15:14 100 mls/hr Q1H MICAH Administration Ondansetron HCl 4 mg 05/20/24 01:03 Ondansetron Inj 2 Mg/Ml Inj 2 Ml IV 06/19/24 01:02 Q6H PRN NAUSEA OR VOMITING Protocol Pantoprazole Sodium 40 mg 05/20/24 21:00 05/21/24 20:21 Pantoprazole Inj 40 Mg Vial IVP 06/19/24 20:59 40 mg HS [facility] Administration Pharmacy Consult 1 each 05/21/24 08:42 Pharmacy Renal Dose Adjustment 1 Ea XX 06/20/24 08:41 PRN PRN CONSULT Sennosides 1 tab 05/20/24 09:00 05/22/24 09:21 Senna Tablet PO 06/19/24 08:59 Not Given QDAY [facility] Protocol Tamsulosin HCl 0.4 mg 05/20/24 21:00 Tamsulosin Hcl 0.4 Mg Capsule PO 06/19/24 20:59 HS MICAH Plan Patient is a 54-year-old male with a past medical history of hypertension, chronic kidney disease stage III, history of congestive heart failure HFpEF- diastolic dysfunction stage I 50 to 55% (03/15/2023), and history of polysubstance use disorder (meth/THC) who was initially admitted for acute hypoxic respiratory failure and CHF exacerbation, then upgraded to ICU and downgraded on 05/22/2024. #Acute Metabolic Encepholopathy #Hypoxemia vs Sepsis Etiology: Likely secondary to hypoxemia given CHF exacerbation on admission requiring intubation prior to being on floors. DDx: Poly-substance Use disorder secondary to methamphetamine as withdraw can present as hyperisonia or insominia vs Sepsis, from CAP vs stroke, less likley as CT head negative, pending MRI. Diagnostics: -Utox Positive THC and Meth -Chest x-ray: Mild Bibasilar Pneumonia -CT Head: negative for hemorrhage or mass effect. Plan: -MRI Brain-pending -consider bupropion if withdraw symptoms are present #Cardiogenic Shock #CHF Exacerbation #CHF, HFpEF systolic dysfunction EF 50% #Troponemia #NSTEMI I vs II (?) Etiology: Patient has an extensive history of CHF, systolic dysfunciton with an EF of 50% and elevated pulmonary artery pressure with atrial dilation. In the setting of methamphetamine use, this is likey the cause as both are highly associated with atrial dilation and contributing to CHF. On admission, patient likely suffered cardiogenic show from possible vasopasm from meth us and multiple anti-hypertensive medication. Now presenting with troponemia with no ST elevation NSTEM I vs NSTEM II can not be rule out. Diagnostics: Echo: Systolic Dysfunciton, massively dilated right atrium, EF 50%, RVSP 60 mm Hg (moderate severe pulmonary hypertension) Troponin (05/22/2024) 2.926 and 2.721 EKG (05/21/2024): Sinus Tachycardia Plan -Holding Bumex given MRI, re-access tomorrow -Daily weight checks -Fluid Restricted -Diet, Na restricted -Keep >4 and Mg >2 -Cardiology Consulted, Dr. Pham, appreciate recommendations #Acute hypoxic respiratory Failure, improving #Sepsis, secondary to pneumonia with end organ failure #Pneumonia #Aortic Thrombus #Obstructive Shock (?) Etiology: Acute hypoxic respiratory failure is likely multi-factorial but CHF exacerbation likely contributing to hypoxemia on addmission given elevated BNP and chest xray on admission showing pulmonary vascular congestion. Sepsis secondary to pneumonia likely contributing to increased work of breathing given update Cxr showing bilateral pneumonia. Consider aspiration pneumonia and increasing Zosyn dosage. Sepsis noted overnight, with a Fever of 101, RR 23, with source of infection as noted in Cxr showing pneumonia. Although Well's criteria on admission was 0, concern for PE increased given possible thrombus noted on CTA neck. Current Well's criteria 3. On heparin drip for thrombus. Thrombus could also be leading to respiratory failure leading to possible obstructive shock previous to ICU admission. Plan -Zosyn 3.375 g (05/22/2024-) -sputum culture -blood culture -consider CTA Chest -Continue highflow support, until able to titrate down on FiO2 to reach N.[place]. #LATASHA on CKD III-->CKD IV #hypokalemia Etiology: Patient has a past medical history of CHF with a BUN/Cr ratio of 19, thus maybe pre-renal given shock and CHF exacerbation, but worsening CKD likely given intrinsic failure. Initially patient was GFR of 31, now GFR worsening at 27, thus progressing towards end renal failure thus dialysis possiblity. DDx: CKD secondary to Intrinsci renal failure from Meth use as it has been to lead to chronic kidney disease vs post renal obstruction given BPH (05/22/2024) BUN 54 Cr 2.7 BUN/Cr 19, GFR 27 Plan: -Continue to replete electrolytes in setting of bumex -currently holding Bumex given MRI w contrast -Avoid nephrotoxins -renally dose medication -follow BUN & Cr #Cirrhosis secondary to Alcohol Use #Hyperbilirubinemia #Mild Transamitis Etiolgoy: Given shock, during ICU admission, likely secondary to hepatic ischemia and complicated by CHF exacerbation causing cardio-hepatic damage. History of Alcohol use disorder likely contributing to cirrhosis. Less likely secondary to infectious cause as hepatitis is negative vs autoimmune condition. LEONARDO and GGT pending. Plan -GGT ordered -monitor AST/ALT -monitor total bili #BPH Plan -no acute intervention -holding Tamulosin Health Maintenance: Disp: Pt is currently admitted to floors for further management of acute encephalopathy, awaiting brain MRI. FEN: NPO, pending speech evaluation DVT: Heparin Code: Full Code - The patient's plan was discussed with attending Dr. Matute and senior residents Dr. Evette Barros MD PGY1 Internal Medicine Attending Provider Attestation/Addendum I, Luana Matute, DO, attest that I was physically present for the carbajal portions of the service and evaluated the patient with the resident and I reviewed and discussed the case with the resident and agree with the resident's findings and plans of care as documented above Patient seen and evaluated this AM. Received call from bedside nurse at 7:09AM due to concern for obtundation. Patient had a rapid response overnight due to altered mental status. Stroke alert was called. CT head was done showing no evidence of acute stroke. CT angio was also done. Showing no acute intracranial findings occlusions or thrombi in the cerebral large vessels. Acute left sphenoid sinusitis is noted. There is also question of an extensive thrombus in the descending thoracic aortic aneurysmal dilatation. Renal function appears to have worsened after patient had received iodine from angiogram. Will hold off on any diuretics at this time due to acute kidney injury versus contrast-induced nephropathy. Will consult nephrology for further recommendations as well. Blood pressure appears to be improved. Patient had a fever yesterday and was given 1 g of vancomycin in addition to Zosyn. Will follow-up with blood cultures. Patient was subsequently placed on high flow nasal cannula upon my evaluation. He is somnolent, but able to follow-up commands and move all 4 extremities spontaneously. No focal neurological deficits noted. Bilateral lower extremity edema appears improved at 1+ at this time. Will continue to monitor ins and outs, daily weights and renal function. Mother and are at bedside in the afternoon. They are understanding of the patient's overall prognosis and multiple comorbidities. Echocardiogram results were reviewed with patient. He has noted to have right heart failure. Findings of thrombus was explained to family and reason for holding off CTA at this time for renal protection was explained with which they were understanding. Will continue with heparin drip at this time as per cardiology recommendations. MRI is pending. Will continue with current management at this time.
[2024-05-22 13:52] LABS: Cocci Serology, IgM Negative (Negative)
[2024-05-22] MEDS: PIPER/TAZO 3.375 GM 3.375 GM/50 ML BAG IV ×2 (14:16→21:10)
--- NOTE | 2024-05-22 14:16 | PC.SS ---
Rounding: ICU downgrade, on hi-duran, pending STROKE work up, Neuro reccs and cardio
--- NOTE | 2024-05-22 14:20 | ESCONSULT_ITS ---
HPI Data of Consult Patient: known to practice within the last 3 years Consult date: 05/22/24 Requesting Physician: Carlos Sanabria MD Admitting Provider: Carlos Sanabria MD Attending Provider: Carlos Sanabria MD Primary Care Provider: Mateo Hernandez MD Consult Narrative Reason for consult: Acute Kidney Injury History of present illness: Mr. De is a 54-year-old male with past medical history of hypertension, CKD stage IIIb, HFpEF, methamphetamine use was admitted for acute hypoxic respiratory failure due to CHF exacerbation and hypertensive emergency. Patient was upgraded to ICU due to altered mental status due to hypotension and hypoxia. Therefore patient ended up getting intubated for airway protection and started on Levophed during ICU course. Patient was given reversal for calcium channel prasanna with calcium chloride x 3 after which patient's blood pressure showed improvement. 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 Patient's head and neck CTA was significant for descending thoracic aorta aneurysmal dilation with extensive thrombus and radiology recommended CTA chest post IV contrast follow-up. Patient is currently on Bumex 2 mg IV twice daily for IV diuresis, Zosyn for pneumonia coverage, heparin GGT due to concern of NSTEMI, Coreg, Flomax and DuoNeb treatments. Nephrology team consulted as patient has LATASHA on CKD with BUN 54, creatinine 2.7, GFR 27 per chart review patient's baseline GFR is 44. Patient seen at bedside, patient is arousable to sternal rub, unable to answer questions, not conversational, patient's mother at bedside case discussed extensively with her. Patient is currently on IV Bumex, will be given IV contrast for CTA. Discussed with patient's mother at bedside that if patient's renal function continues to decline patient might need dialysis temporarily, patient's mother is the primary decision maker and agrees with dialysis if needed. cc:: cc: Carlos Sanabria MD Review of Systems Review of Systems ROS Unobtainable: unobtainable due to mental status and unobtainable due to medical condition Past Medical History Past Medical History CARDIAC: Positive Hypertension; Negative Cardiac Disorders or Congestive Heart Failure RESPIRATORY: Positive Respiratory Disorders (High flow); Negative Chronic Obstructive Pulmonary Disease (COPD) or Asthma GENITOURINARY: Negative Renal Disease ENDOCRINE: Negative Diabetes Mellitus Type 1 or Diabetes Mellitus Type 2 HEMATOLOGIC: Negative Sickle Cell Disease Family History FAMILY HISTORY: Positive Family Cardiac Disorders Social History SMOKING STATUS: Former smoker Past Medical History Comments PMH COMMENT: PMH: meth use, HFpEF (50 to 55% on 2022), CKD, and hypertension FMH: Dad had hypertension Social Hx: Admits meth and THC, admits smoking 2 packs/week, states he has not used alcohol in the last 15 years Exam Vital Signs Temp Pulse Resp BP Pulse Ox O2 Del Method O2 Flow Rate 98.2 F 74 30 H 114/52 L 96 Oxy Mask 18 05/22/24 12:00 05/22/24 12:11 05/22/24 12:11 05/22/24 12:00 05/22/24 12:11 05/22/24 12:00 05/22/24 12:11 FiO2 50 05/22/24 12:11 Narrative Exam General: AO x 0, arousable to sternal rub, non-conversational Eyes: Pupils reactive to light. Ears: No visible ear discharge. Nose: No visible nasal discharge. Mouth/Throat: dry mucous membranes, no redness, no lesions. Neck: Neck supple, non-tender, no cervical lymphadenopathy. Lungs: B/L crackles, No accessory muscle use. Currently on high flow. Cardio: Normal S1/S2, regular rhythm, no murmurs, no JVD Abdomen: Soft, non-tender, no palpable masses. Extremities: Symmetrical, no significant deformities, 2+ peripheral edema , non-tender, peripheral pulses presents. Skin: No rashes, no lesions, warm to touch. Neuro: AO x 0, arousable to sternal rub, non-conversational Results Labs 05/23/24 05:07 05/23/24 05:07 Labs: Short CBC 05/22/24 05/22/24 Range/Units 01:09 06:28 WBC 8.7 10.5 (3.8-10.6) Thou/mm3 Hgb 13.9 D 14.0 (13.5-16.0) g/dL Hct 39.6 L 40.5 L (41.0-53.0) % Plt Count 144 D 161 (140-440) Thou/mm3 BMP 05/21/24 05/22/24 05/22/24 17:50 01:09 06:28 Sodium 137 138 137 Potassium 2.8 L D 3.1 L 2.9 L Chloride 98 99 98 Carbon Dioxide 27.8 26.8 28.8 BUN 46 H 56 H 54 H Creatinine 2.2 H 2.6 H 2.7 H Glucose 77 86 91 Calcium 9.0 8.6 8.3 Cardiac Enzymes 05/21/24 05/21/24 05/22/24 Range/Units 13:44 17:50 01:09 Total Creatine Kinase Cancelled Troponin I 2.926 H* D 2.721 H* D (0.0-0.045) ng/mL 05/22/24 Range/Units 06:28 Total Creatine Kinase 926 H Troponin I (0.0-0.045) ng/mL Liver Function 05/21/24 05/22/24 05/22/24 Range/Units 17:50 01:09 06:28 Total Bilirubin 3.8 H 4.3 H D (0.3-1.2) mg/dL AST 164 H 166 H (0-34) U/L ALT 131 H 128 H (10-49) U/L Alkaline Phosphatase 79 D 76 (46-116) U/L Albumin 3.5 D 2.8 L D 3.0 L (3.5-5.0) gm/dL ABG Interpretation ABG results: 05/20/24 05/21/24 05/22/24 17:52 04:45 00:39 ABG pH 7.36 7.42 7.53 H D ABG pCO2 33 44 D 38 ABG pO2 375 H 107 D 43 L* D ABG HCO3 19 L 29 H 31 H ABG O2 Saturation 101 H 98 80 L ABG Base Excess -6 L 3 8 H 05/22/24 00:56 ABG pH 7.50 H ABG pCO2 40 ABG pO2 64 L D ABG HCO3 31 H ABG O2 Saturation 93 ABG Base Excess 7 H Quality Measures Quality Measures none Medications Home Medications and Allergies Home Medications ?Medication ?Instructions ?Recorded ?Confirmed ?Type bumetanide 2 mg tablet 2 mg PO QDAY 12/05/23 05/21/24 History Allergies Allergy/AdvReac Type Severity Reaction Status Date / Time No Known Allergies Allergy Verified 12/05/23 10:13 Visit Medications Acetaminophen (Acetaminophen 325 Mg Tablet) 650 mg PO Q6H PRN PRN Reason: Pain 1-3 or Fever >100.3 Stop: 06/19/24 01:02 Last Admin: 05/21/24 18:34 Dose: 650 mg Albuterol/Ipratropium (Albuterol/Ipratropium (Duoneb) Rt Yuli 3 Ml Nebu) 3 ml INH Q6HRRT [facility] Stop: 06/20/24 12:59 Last Admin: 05/22/24 12:08 Dose: 3 ml Bumetanide (Bumetanide Inj 0.25 Mg/Ml Vial 4 Ml) 2 mg IVP BID [facility] Stop: 06/20/24 08:59 Last Admin: 05/22/24 09:20 Dose: 2 mg Carvedilol (Carvedilol 12.5 Mg Tablet) 12.5 mg PO BIDWM [facility] Stop: 06/20/24 08:29 Last Admin: 05/22/24 08:00 Dose: Not Given Hydralazine HCl (Hydralazine Inj 20 Mg/Ml Vial) 10 mg IV Q4HR PRN PRN Reason: SBP>180 Stop: 06/20/24 08:24 Hydralazine HCl (Hydralazine Hcl 25 Mg Tablet) 50 mg PO BID [facility] Stop: 06/20/24 15:34 Last Admin: 05/22/24 09:21 Dose: Not Given Heparin Sodium/Dextrose (Heparin In D5w Ivpb) 25,000 unit in 250 mls @ 10.704 mls/hr IV .[id number] [facility]; Protocol Stop: 06/04/24 14:59 Last Titration: 05/22/24 00:46 Dose: 0 units/kg/hr, 0 mls/hr Piperacillin/Tazobactam/Dextrose (Zosyn) 3.375 gm in 50 mls @ 12.5 mls/hr IV Q8HR [facility] Stop: 05/29/24 02:59 Last Admin: 05/22/24 14:16 Dose: 12.5 mls/hr Potassium Chloride (Kcl Ivpb) 10 meq in 100 mls @ 100 mls/hr IV Q1H [facility] Stop: 05/22/24 15:14 Last Admin: 05/22/24 13:46 Dose: 100 mls/hr Ondansetron HCl (Ondansetron Inj 2 Mg/Ml Inj 2 Ml) 4 mg IV Q6H PRN; Protocol PRN Reason: NAUSEA OR VOMITING Stop: 06/19/24 01:02 Pantoprazole Sodium (Pantoprazole Inj 40 Mg Vial) 40 mg IVP HS [facility] Stop: 06/19/24 20:59 Last Admin: 05/21/24 20:21 Dose: 40 mg Pharmacy Consult (Pharmacy Renal Dose Adjustment 1 Ea) 1 each XX PRN PRN PRN Reason: CONSULT Stop: 06/20/24 08:41 Sennosides (Senna Tablet) 1 tab PO QDAY [facility]; Protocol Stop: 06/19/24 08:59 Last Admin: 05/22/24 09:21 Dose: Not Given Tamsulosin HCl (Tamsulosin Hcl 0.4 Mg Capsule) 0.4 mg PO [facility] Stop: 06/19/24 20:59 Discontinued Medications Amlodipine Besylate (Amlodipine Besylate 5 Mg Tablet) 10 mg PO QDAY [facility] Stop: 06/19/24 08:59 Last Admin: 05/20/24 10:40 Dose: 10 mg Bumetanide (Bumetanide 0.5 Mg Tablet) 2 mg PO BID [facility] Stop: 06/19/24 01:14 Last Admin: 05/20/24 11:11 Dose: Not Given Bumetanide (Bumetanide Inj 0.25 Mg/Ml Vial 4 Ml) 2 mg IVP X1 ONE Stop: 05/20/24 09:26 Bumetanide (Bumetanide Inj 0.25 Mg/Ml Vial 4 Ml) 2 mg IVP BID [facility] Stop: 06/19/24 09:29 Last Admin: 05/20/24 10:39 Dose: 2 mg Bumetanide (Bumetanide Inj 0.25 Mg/Ml Vial 4 Ml) 2 mg IVP BID [facility] Stop: 06/20/24 08:59 Last Admin: 05/21/24 08:49 Dose: 2 mg Calcium Chloride (Calcium Chloride 10% Inj 10 Ml Syrg) 10 ml IV X1 ONE Stop: 05/20/24 17:56 Last Admin: 05/20/24 18:24 Dose: 10 ml Carvedilol (Carvedilol 12.5 Mg Tablet) 12.5 mg PO BIDWM [facility] Stop: 06/20/24 08:29 Last Admin: 05/21/24 08:49 Dose: 12.5 mg Clonidine (Clonidine Hcl 0.1 Mg Tablet) 0.2 mg PO X1 ONE Stop: 05/19/24 23:23 Last Admin: 05/19/24 23:26 Dose: 0.2 mg Dextrose (Dextrose 50%-Water Inj 50 Ml Syringe) 50 ml IV X1 ONE Stop: 05/22/24 00:39 Last Admin: 05/22/24 01:32 Dose: Not Given Etomidate (Etomidate Inj 2 Mg/Ml Vial 10 Ml) 20 mg IVP X1 ONE Stop: 05/20/24 16:55 Last Admin: 05/20/24 16:58 Dose: 20 mg Etomidate (Etomidate Inj 2 Mg/Ml Vial 10 Ml) 20 mg IVP X1 ONE Stop: 05/20/24 17:46 Last Admin: 05/20/24 17:15 Dose: 20 mg Gabapentin (Gabapentin 300 Mg Capsule) 300 mg PO QDAY [facility] Stop: 06/19/24 08:59 Last Admin: 05/20/24 10:41 Dose: 300 mg Heparin Sodium (Porcine) (Heparin Sod Inj 5000 Unit/Ml Vial) 5,000 unit SC TID [facility] Stop: 06/03/24 21:59 Last Admin: 05/21/24 14:57 Dose: Not Given Hydralazine HCl (Hydralazine Inj 20 Mg/Ml Vial) 20 mg IV X1 ONE Stop: 05/19/24 22:01 Last Admin: 05/19/24 22:12 Dose: 20 mg Hydralazine HCl (Hydralazine Hcl 25 Mg Tablet) 50 mg PO TID [facility] Stop: 06/19/24 10:14 Last Admin: 05/20/24 15:44 Dose: Not Given Fentanyl Citrate (Sublimaze Inj 2,500 Mcg/250 Ml Bag) 2,500 mcg in 250 mls @ 2.5 mls/hr IV .Q24H PRN; Protocol PRN Reason: PER PROTOCOL Stop: 05/25/24 16:55 Last Titration: 05/21/24 08:00 Dose: 0 mcg/hr, 0 mls/hr Propofol (Diprivan Ivpb) 1,000 mg in 100 mls @ 2.994 mls/hr IV .Q24H PRN; Protocol PRN Reason: PER PROTOCOL Stop: 06/19/24 16:55 Last Titration: 05/21/24 08:00 Dose: 0 mcg/kg/min, 0 mls/hr Norepinephrine/Dextrose (Levophed In D5w 8mg/250ml) 8 mg in 250 mls @ 9.355 mls/hr IV .Q24H PRN; Protocol PRN Reason: PER PROTOCOL Stop: 06/19/24 17:25 Last Titration: 05/20/24 20:30 Dose: 0 mcg/kg/min, 0 mls/hr Lactated Ringer's (Lactated Ringers) 1,000 mls @ 999 mls/hr IV .Q1H1M ONE Stop: 05/20/24 19:07 Last Infusion: 05/20/24 20:31 Dose: Infused Calcium Chloride 10 ml/ Sodium (Chloride) 110 mls @ 110 mls/hr IV X1 ONE Stop: 05/20/24 18:44 Last Infusion: 05/20/24 20:49 Dose: Infused Calcium Chloride 10 ml/ Sodium (Chloride) 110 mls @ 110 mls/hr IV X1 ONE Stop: 05/20/24 19:17 Last Infusion: 05/20/24 20:50 Dose: Infused Norepinephrine/Dextrose (Levophed In D5w 8mg/250ml) 8 mg in 250 mls @ 9.355 mls/hr IV .Q24H PRN; Protocol PRN Reason: PER PROTOCOL Stop: 06/19/24 17:25 Norepinephrine/Dextrose (Levophed In D5w 8mg/250ml) 8 mg in 250 mls @ 9.355 mls/hr IV .Q24H PRN; Protocol PRN Reason: PER PROTOCOL Stop: 06/19/24 17:25 Last Titration: 05/21/24 01:02 Dose: 0 mcg/kg/min, 0 mls/hr Potassium Chloride (Kcl Ivpb) 10 meq in 100 mls @ 100 mls/hr IV Q1H [facility] Stop: 05/21/24 09:58 Last Infusion: 05/21/24 22:38 Dose: Infused Ampicillin Sodium/Sulbactam (Sodium 1.5 gm/ Sodium Chloride) 50 mls @ 100 mls/hr IV Q6HR [facility] Stop: 05/28/24 08:44 Last Infusion: 05/21/24 22:38 Dose: Infused Ampicillin Sodium/Sulbactam (Sodium 3 gm/ Sodium Chloride) 50 mls @ 100 mls/hr IV Q6HR [facility] Stop: 05/29/24 00:00 Piperacillin/Tazobactam/Dextrose (Zosyn) 3.375 gm in 50 mls @ 100 mls/hr IV X1 ONE Stop: 05/21/24 19:44 Last Infusion: 05/21/24 22:38 Dose: Infused Vancomycin HCl (Vancomycin/Water 1250 Mg Ivpb) 250 mls @ 120 mls/hr IV X1 ONE Stop: 05/21/24 21:34 Last Infusion: 05/21/24 22:38 Dose: Infused Vancomycin/Sodium Chloride (Vancomycin/Ns 500 Mg Ivpb) 100 mls @ 120 mls/hr IV X1 ONE Stop: 05/22/24 10:49 Last Admin: 05/22/24 10:17 Dose: 120 mls/hr Magnesium Sulfate (Magnesium Sulfate Ivpb) 2 gm in 50 mls @ 25 mls/hr IV X1 ONE Stop: 05/22/24 11:13 Last Admin: 05/22/24 09:24 Dose: 25 mls/hr Labetalol HCl (Labetalol Inj 5 Mg/Ml Vial 20 Ml) 10 mg IVP Q6HR PRN PRN Reason: SBP >170 DBP>110 HR>80 Stop: 06/19/24 01:10 Last Admin: 05/20/24 12:24 Dose: 10 mg Labetalol HCl (Labetalol 100 Mg Tablet) 100 mg PO BID [facility] Stop: 06/19/24 08:59 Last Admin: 05/20/24 11:11 Dose: Not Given Lorazepam (Lorazepam 2 Mg/Ml Vial) 1 mg IVP X1 ONE Stop: 05/20/24 17:31 Last Admin: 05/20/24 17:33 Dose: 1 mg Losartan Potassium (Losartan Potassium 25 Mg Tablet) 100 mg PO X1 ONE Stop: 05/19/24 22:01 Last Admin: 05/19/24 22:13 Dose: 100 mg Midazolam HCl (Midazolam Inj 1 Mg/Ml Vial 2 Ml) 2 mg IV X1 ONE Stop: 05/21/24 04:26 Last Admin: 05/21/24 04:33 Dose: Not Given Nifedipine (Nifedipine 10 Mg Capsule) 30 mg PO TID [facility] Stop: 06/19/24 15:14 Last Admin: 05/20/24 15:47 Dose: 30 mg Nitroglycerin (Nitroglycerin 0.4 Mg Subl Btl #25) 0.4 mg SL Q5MIN PRN PRN Reason: CHEST PAIN Pharmacy Consult (Vancomycin Pharmacy To Dose 1 Each Each) 1 each IV QDAY [facility] Stop: 06/20/24 19:14 Last Admin: 05/21/24 20:32 Dose: Not Given Pharmacy Consult (Vancomycin Pharmacy To Dose 1 Each Each) 1 each IV QDAY PRN PRN Reason: PROTOCOL Stop: 06/20/24 19:14 Potassium Chloride (Potassium Chloride 20 Meq Tabcr) 40 meq PO X1 ONE Stop: 05/20/24 09:23 Last Admin: 05/20/24 10:47 Dose: 40 meq Potassium Chloride (Potassium Chloride 20 Meq Tabcr) 20 meq PO X1 ONE Stop: 05/20/24 11:01 Last Admin: 05/20/24 10:47 Dose: 20 meq Sevelamer Carbonate (Sevelamer Carbonate 800 Mg Tablet) 800 mg PO X1 ONE Stop: 05/20/24 10:19 Last Admin: 05/20/24 12:07 Dose: 800 mg Sevelamer Carbonate (Sevelamer Carbonate 800 Mg Tablet) 800 mg PO BID [facility] Stop: 06/20/24 11:29 Last Admin: 05/21/24 20:21 Dose: 800 mg Spironolactone (Spironolactone 25 Mg Tablet) 25 mg PO QDAY [facility] Stop: 06/20/24 11:29 Spironolactone (Spironolactone 25 Mg Tablet) 25 mg NG QDAY [facility] Stop: 06/20/24 11:29 Last Admin: 05/21/24 12:13 Dose: 25 mg Succinylcholine Chloride (Succinylcholine Inj 20 Mg/Ml Vial 10 Ml) 100 mg IV X1 ONE Stop: 05/20/24 16:55 Last Admin: 05/20/24 16:59 Dose: 100 mg Tamsulosin HCl (Tamsulosin Hcl 0.4 Mg Capsule) 0.4 mg PO QDAY [facility] Stop: 06/19/24 08:59 Last Admin: 05/20/24 11:11 Dose: Not Given Assessment & Plan Plan Summary: Mr. De is a 54-year-old male with past medical history of hypertension, CKD stage IIIb, HFpEF, methamphetamine use was admitted for acute hypoxic respiratory failure due to CHF exacerbation and hypertensive emergency. Nephrology team consulted for LATASHA on CKD. #LATASHA on CKD stage IIIb 05/22-BUN 54, creatinine 2.7, GFR 27 Per chart review patient's baseline GFR is 44. Patient is arousable to sternal rub, unable to answer questions, not conversational, patient's mother at bedside case discussed extensively with her. Patient is currently on IV Bumex, will be given IV contrast for CTA. Plan: -Will continue to monitor renal function -Hold diuretics prior to CTA -Discussed with patient's mother at bedside that if patient's renal function continues to decline patient might need dialysis. -Patient's mother is the primary decision maker and agrees with dialysis if needed. 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 Hernandez. Otoniel Allen PGY1 Attending Provider Attestation/Addendum Patient seen and examined with resident physician Dr. Allen. Note reviewed, agree with findings and recommendations. Well-known to me from my CKD clinic. Patient admitted with acute hypoxic respiratory failure, electrolyte imbalance and LATASHA. Noted patient will be going for CTA today. Risk of contrast nephropathy is high. Family aware. Mom who has power of lugger agreed for dialysis if indicated. Thank you Dr. Matute for allowing me to participate in the care of Mr. De
[2024-05-22 15:32] LABS: Alanine Aminotransferase 129 U/L (10-49); Alkaline Phosphatase 73 U/L (46-116); Anion Gap 10 (7-16); Aspartate Amino Transferase 170 U/L (0-34); BUN/Creatinine Ratio 19 Ratio (12-20); Bilirubin,Total 4.3 mg/dL (0.3-1.2); Blood Urea Nitrogen 51 mg/dL (9-23); Calcium (Corrected) 8.8 mg/dL (8.5-10.1); Carbon Dioxide 27.6 mMol/L (20.0-31.0); Chloride 99 mMol/L (98-107); Creatinine (Component) 2.7 mg/dL (0.6-1.3); Estimated Creatinine Clearance 33.9 mL/min (>60); Glucose 106 mg/dL (74-106); Osmolality,Calculated 287 (275-295); Potassium 3.5 mMol/L (3.4-5.1); Sodium 137 mMol/L (136-145); eGFR 27 See Note
[2024-05-22] MEDS: Heparin/D5w 25K 250 ML Ivpb 25,000 UNIT/250 ML BAG 9.968 UNIT IV (15:49)
[2024-05-22 15:50] LABS: HIV (1&2) Antibody Rapid Non-Reactive
--- NOTE | 2024-05-22 20:22 | ESPR_ITS ---
Documentation for date of: 05/22/24 Subjective Subjective Interval history: Patient seen and examined at the bedside. Patient was extubated yesterday in the ICU and was transferred to the regular nursing floor. Overnight patient had a rapid response for altered mental status. Stroke protocol was called for concern of stroke. CTA of the neck did not show any major acute pathology but showed questionable descending aortic thrombus with limited views as per the radiology report and recommended for dedicated CTA of the aorta. MRI of the brain is pending Primary team held the CTA for now given the worsening acute kidney injury on chronic kidney disease and also held the diuretics with which we agree. Recommend to discuss with radiology 1 more time regarding findings of CTA head thrombus in the aorta. Patient already on heparin drip for the NSTEMI as well as he is on aspirin and statin. Echo on 05/20 showed Small LV size, moderate LVH with low normal ejection fraction at around 50% Flattened interatrial septum in both systole and diastole indicating both RV pressure and volume overload. Severely dilated right ventricle with moderate RV systolic dysfunction and massively dilated right atrium. Moderate to severe TR and estimated RVSP around 60 mmHg indicating moderate to severe pulmonary hypertension, Trace MR and dilated IVC. Patient is significant right heart failure in the setting of pulmonary hypertension which appears to be chronic based on the echo. CHF exacerbation mostly secondary to the right heart failure as well as a pulmonary end along with diastolic dysfunction as well as low normal EF. Patient was aggressively diuresed over the last couple of days and had negative output for more than 4 L. He was net -3.5 L yesterday. Diuresis on hold because of LATASHA with BUN of 51 and creatinine of 2.7 and his baseline creatinine is around 2.0 2 potassium greater than 4 magnesium greater than 2.0 at all times Nephrology was consulted today per the primary team and recommended to hold diuresis for today as patient will also need his CTA and he did receive contrast and will need to monitor for contrast induced injury too. Grieving the holding the dialysis for now. Patient did eventually end up in dialysis which is decreased with nephrology with the family and they are agreeable. Overall prognosis is poor for the patient, explained that in detail to the patient and his family. Recommended to quit OF drug abuse immediately including the smoking completely. Exam Vital Signs Temp Pulse Resp BP Pulse Ox O2 Del Method O2 Flow Rate 97.8 F 78 26 H 112/73 95 Oxy Mask 18 05/22/24 15:42 05/22/24 18:21 05/22/24 18:21 05/22/24 15:42 05/22/24 18:21 05/22/24 15:42 05/22/24 18:21 FiO2 45 05/22/24 18:21 Objective Labs 05/23/24 05:07 05/22/24 14:55 Labs: Laboratory Results - last 24 hr 05/21/24 05/22/24 05/22/24 23:10 00:39 00:56 WBC RBC Hgb Hct MCV MCH MCHC RDW Std Deviation Plt Count Neut % (Auto) Lymph % (Auto) [place] % (Auto) Eos % (Auto) Baso % (Auto) Neut # (Auto) Lymph # (Auto) [place] # (Auto) Eos # (Auto) Baso # (Auto) Immature Gran # (Auto) Absolute Nucleated RBC Immature Gran % Nucleated RBC % PT INR APTT 74.0 H D Puncture Site Right Radial Right Radial ABG pH 7.53 H D 7.50 H ABG pCO2 38 40 ABG pO2 43 L* D 64 L D ABG HCO3 31 H 31 H ABG O2 Saturation 80 L 93 ABG Base Excess 8 H 7 H Oxygen Liter Flow 15 15 Sodium Potassium Chloride Carbon Dioxide Anion Gap BUN Creatinine Estim Creat Clear Calc eGFR BUN/Creatinine Ratio Glucose Calculated Osmolality Lactic Acid Calcium Corrected Calcium Phosphorus Magnesium Total Bilirubin AST ALT Alkaline Phosphatase Ammonia Total Creatine Kinase Total Protein Albumin Globulin Albumin/Globulin Ratio Random Vancomycin Coccidioides IgM Ab Negative HIV 1&2 Antibody Rapid 05/22/24 05/22/24 05/22/24 01:09 06:28 10:02 WBC 8.7 10.5 RBC 4.42 L 4.44 L Hgb 13.9 D 14.0 Hct 39.6 L 40.5 L MCV 90 91 MCH 31.4 31.5 MCHC 35.1 34.6 RDW Std Deviation 46.3 H 47.5 H Plt Count 144 D 161 Neut % (Auto) 81 H 87 H Lymph % (Auto) 9 L 7 L [place] % (Auto) 7 5 Eos % (Auto) 2 0 Baso % (Auto) 0 0 Neut # (Auto) 7.1 9.1 H Lymph # (Auto) 0.8 L 0.8 L [place] # (Auto) 0.6 0.5 Eos # (Auto) 0.2 0.0 Baso # (Auto) 0.0 0.0 Immature Gran # (Auto) 0.06 H 0.14 H Absolute Nucleated RBC 0.00 0.00 Immature Gran % 1 H 1 H Nucleated RBC % 0 0 PT 16.7 H INR 1.6 H APTT 39.2 H D Puncture Site ABG pH ABG pCO2 ABG pO2 ABG HCO3 ABG O2 Saturation ABG Base Excess Oxygen Liter Flow Sodium 138 137 Potassium 3.1 L 2.9 L Chloride 99 98 Carbon Dioxide 26.8 28.8 Anion Gap 12 10 BUN 56 H 54 H Creatinine 2.6 H 2.7 H Estim Creat Clear Calc 35.2 L 33.9 L eGFR 28 L 27 L BUN/Creatinine Ratio 22 H 20 Glucose 86 91 Calculated Osmolality 290 288 Lactic Acid 2.2 H 2.1 H Calcium 8.6 8.3 Corrected Calcium 9.6 9.1 Phosphorus 4.9 Magnesium 1.8 Total Bilirubin 3.8 H 4.3 H D AST 164 H 166 H ALT 131 H 128 H Alkaline Phosphatase 79 D 76 Ammonia 30 Total Creatine Kinase Cancelled 926 H Total Protein 5.6 L 6.0 Albumin 2.8 L D 3.0 L Globulin 2.8 3.0 Albumin/Globulin Ratio 1.0 L 1.0 L Random Vancomycin 15.4 Coccidioides IgM Ab HIV 1&2 Antibody Rapid Non-Reactive 05/22/24 14:55 WBC RBC Hgb Hct MCV MCH MCHC RDW Std Deviation Plt Count Neut % (Auto) Lymph % (Auto) [place] % (Auto) Eos % (Auto) Baso % (Auto) Neut # (Auto) Lymph # (Auto) [place] # (Auto) Eos # (Auto) Baso # (Auto) Immature Gran # (Auto) Absolute Nucleated RBC Immature Gran % Nucleated RBC % PT INR APTT Puncture Site ABG pH ABG pCO2 ABG pO2 ABG HCO3 ABG O2 Saturation ABG Base Excess Oxygen Liter Flow Sodium 137 Potassium 3.5 D Chloride 99 Carbon Dioxide 27.6 Anion Gap 10 BUN 51 H Creatinine 2.7 H Estim Creat Clear Calc 33.9 L eGFR 27 L BUN/Creatinine Ratio 19 Glucose 106 Calculated Osmolality 287 Lactic Acid Calcium 8.0 L Corrected Calcium 8.8 Phosphorus Magnesium Total Bilirubin 4.3 H AST 170 H ALT 129 H Alkaline Phosphatase 73 Ammonia Total Creatine Kinase Total Protein 6.0 Albumin 3.0 L Globulin 3.0 Albumin/Globulin Ratio 1.0 L Random Vancomycin Coccidioides IgM Ab HIV 1&2 Antibody Rapid ABG Interpretation ABG results: 05/20/24 05/21/24 05/22/24 17:52 04:45 00:39 ABG pH 7.36 7.42 7.53 H D ABG pCO2 33 44 D 38 ABG pO2 375 H 107 D 43 L* D ABG HCO3 19 L 29 H 31 H ABG O2 Saturation 101 H 98 80 L ABG Base Excess -6 L 3 8 H 05/22/24 00:56 ABG pH 7.50 H ABG pCO2 40 ABG pO2 64 L D ABG HCO3 31 H ABG O2 Saturation 93 ABG Base Excess 7 H Assessment & Plan A&P Narrative 54-year-old male with past medical history of meth use, HFpEF (50 to 55% on 2022), CKD, and hypertension was admitted to the hospital on 05/20/2024 due to acute decompensated heart failure exacerbation. 1. Acute decompensated heart failure exacerbation (EF 50 to 55% on 2022) Secondary to right heart failure along with moderate to severe pulmonary hypertension and HFpEF 2. Cardiogenic shock 3. Cardiorenal syndrome along with congestive hepatopathy ?Patient came in with shortness of breath and bilateral lower extremity swelling ? Initial BNP was more than 3280 ? Patient has a history of HFpEF and states that he follows up with manager of it in [place] ? Patient clinically looks fluid overloaded and having shortness of breath with having to stop in between sentences. ?Echo on 03/15/2023 had the following findings: Normal LV size and function. Moderate LVH. Diastolic dysfunction stage I. Estimated EF 50 to 55%. Normal RV size and function. Trace TR. Plan: ? Recommend to hold Bumex 2 mg TID -started heparin drip if no contraindications for 48 hours -Recommend to place patient on high intensity statin and aspirin -Recommend to get nephrology consult -Recommend vasopressor support as needed as patient most likely was in septic versus cardiogenic shock. ? Will follow-up on echo ? Strict WES's ? Daily weights ?Fluid restrictions ?Low-sodium diet ? Recommend to strictly replace potassium and magnesium to keep above 4 and 2 respectively to avoid any further arrhythmias. 05/22/2024: Patient was extubated yesterday in the ICU and was transferred to the regular nursing floor. Overnight patient had a rapid response for altered mental status. Stroke protocol was called for concern of stroke. CTA of the neck did not show any major acute pathology but showed questionable descending aortic thrombus with limited views as per the radiology report and recommended for dedicated CTA of the aorta. MRI of the brain is pending Primary team held the CTA for now given the worsening acute kidney injury on chronic kidney disease and also held the diuretics with which we agree. Recommend to discuss with radiology 1 more time regarding findings of CTA head thrombus in the aorta. Patient already started on heparin drip for NSTEMI and also on aspirin and statin. Echo on 05/20 showed Small LV size, moderate LVH with low normal ejection fraction at around 50% Flattened interatrial septum in both systole and diastole indicating both RV pressure and volume overload. Severely dilated right ventricle with moderate RV systolic dysfunction and massively dilated right atrium. Moderate to severe TR and estimated RVSP around 60 mmHg indicating moderate to severe pulmonary hypertension, Trace MR and dilated IVC. Patient is significant right heart failure in the setting of pulmonary hypertension which appears to be chronic based on the echo. CHF exacerbation mostly secondary to the right heart failure as well as a pulmonary end along with diastolic dysfunction as well as low normal EF. Patient was aggressively diuresed over the last couple of days and had negative output for more than 4 L. He was net -3.5 L yesterday. He potassium greater than 4 and magnesium greater than 2.0 at all times. Diuresis on hold because of LATASHA with BUN of 51 and creatinine of 2.7 and his baseline creatinine is around 2.0 Nephrology was consulted today per the primary team and recommended to hold diuresis for today as patient will also need his CTA and he did receive contrast and will need to monitor for contrast induced injury too. Grieving the holding the dialysis for now. Patient did eventually end up in dialysis which is decreased with nephrology with the family and they are agreeable. 3. Hypertensive emergency 4. NSTEMI ?Patient's initial blood pressure was 217/126 ? Troponins were elevated at 0.287 on admission and up trended to 0.567 ?EKG did not show any acute ST changes ? NSTEMI most likely type II in the setting of acute decompensated heart failure exacerbation and hypertensive emergency Plan: -Recommend no further troponins. -Start heparin drip for 48 hours further NSTEMI -Recommend to place patient on high intensity statin and aspirin -Recommend to get nephrology consult -Recommend vasopressor support as needed as patient most likely was in septic versus cardiogenic shock. 5. Cirrhosis 6. Congestive hepatopathy 7. Ascites 8. Transaminitis 9. Hyperbilirubinemia ?Abdomen/pelvis CT shows cirrhosis and ascites ? Abdominal ultrasound showed cirrhosis ? AST 112, ALT 84 and 2 bilirubin 3.9 on admission ?Presents most likely on congestive hepatopathy most likely secondary to congestive heart failure ?Continue current management as per primary care team 10. CKD ? Initial creatinine was 2.1 and BUN 26 on admission ?Could be secondary to cardiorenal syndrome ? Continue current management as per primary care team 11. Polysubstance use (meth and THC) ? U tox was positive for meth and THC ? Continue current management as per primary care team Overall prognosis is poor for the patient, explained that in detail to the patient and his family. Recommended to quit OF drug abuse immediately including the smoking completely. Management of rest of the medical conditions as per primary team and other consultants. Thank you for the consult and allowing me to participate in the care of the patient. Cardiology will continue to follow. Remy Pham M.D. Interventional Cardiology Time Spent With Patient Time: Total time spent is greater than 50% in coordination of care (as documented) at patient's floor/unit and/or counseling patient:
[2024-05-22] MEDS: PANTOPRAZOLE INJ 40 MG VIAL IVP (21:10)
[2024-05-22 23:08] LABS: Partial Thromboplastin Time 43.9 Seconds (22.0-36.0)
[2024-05-23] VITALS (16 sets, daily range): BP systolic 131–148; BP diastolic 76–95; PULSE 71–87; RESP 14–26; TEMP 36.1–36.9; O2SAT 91–99; BMI 25.3; BMI 13.0
--- NOTE | 2024-05-23 00:09 | PC.NURSE ---
MD Costa notified that patient's ptt level came back to be 43.9 which requires a bolus per heparin protocol. On one of the progress notes from 05/22/24 it was stated that linda recommends no bolus with the heparin drip. MD Costa said ok to give no boluses with the heparin drip.
[2024-05-23] MEDS: ALBUTEROL/IPRATROPIUM (Duoneb) RT SOL 3 ML NEBU INH ×4 (01:06→18:46)
[2024-05-23] MEDS: PIPER/TAZO 3.375 GM 3.375 GM/50 ML BAG IV (05:30)
[2024-05-23 05:47] LABS: Basophils % (Auto) 0 % (0-2.5); Eosinophils % (Auto) 0 % (0-10); Hematocrit 38.9 % (41.0-53.0); Hemoglobin 13.6 g/dL (13.5-16.0); Immature Granulocytes % (Auto) 1 % (0-0); Immature Granulocytes Auto 0.07 Thou/mm3 (0.00-0.00); Lymphocytes # (Auto) 1.1 Thou/mm3 (1.0-4.8); Lymphocytes % (Auto) 9 % (10-50); Mean Corpuscular Hemoglobin 31.9 pg (25.0-35.0); Mean Corpuscular Volume 91 fL (80-100); Monocytes # (Auto) 0.5 Thou/mm3 (0.0-0.8); Monocytes % (Auto) 4 % (0-12); Neutrophils # (Auto) 9.8 Thou/mm3 (1.8-7.7); Neutrophils % (Auto) 86 % (37-80); Nucleated Red Blood Cell % 0 /100 WBC (0); Platelet Count 170 Thou/mm3 (140-440); RDW Standard Deviation 47.8 fL (35.1-43.9); Red Blood Count 4.26 Miln/mm3 (4.50-5.90); White Blood Count 11.4 Thou/mm3 (3.8-10.6)
[2024-05-23 06:26] LABS: INR 1.2 (0.9-1.3); Partial Thromboplastin Time 53.9 Seconds (22.0-36.0); Prothrombin Time 12.5 Seconds (9.0-12.2)
[2024-05-23 06:38] LABS: Alanine Aminotransferase 133 U/L (10-49); Albumin/Globulin Ratio 0.9 (1.2-2.2); Alkaline Phosphatase 72 U/L (46-116); Anion Gap 12 (7-16); Aspartate Amino Transferase 175 U/L (0-34); BUN/Creatinine Ratio 23 Ratio (12-20); Bilirubin,Total 3.6 mg/dL (0.3-1.2); Blood Urea Nitrogen 59 mg/dL (9-23); Calcium 8.4 mg/dL (8.3-10.6); Calcium (Corrected) 9.2 mg/dL (8.5-10.1); Carbon Dioxide 28.4 mMol/L (20.0-31.0); Chloride 102 mMol/L (98-107); Creatinine (Component) 2.6 mg/dL (0.6-1.3); Estimated Creatinine Clearance 35.2 mL/min (>60); Globulin 3.2 gm/dL (2.3-3.5); Glucose 97 mg/dL (74-106); Magnesium 2.3 mg/dL (1.6-2.6); Osmolality,Calculated 299 (275-295); Phosphorous 3.8 mg/dL (2.4-5.1); Sodium 142 mMol/L (136-145); Total Protein 6.2 gm/dL (5.7-8.2); eGFR 28 See Note
[2024-05-23] MEDS: POTASSIUM CHL 10 mEq IVPB 10 MEQ/100 ML BAG 100 MEQ IV ×6 (07:33→13:12)
[2024-05-23 07:34] LABS: Syphilis Nonreactive (Nonreactive)
--- NOTE | 2024-05-23 08:19 | PD.RESPRO ---
Documentation for date of: 05/23/24 Subjective Subjective Interval history: Patient was examined bedside this morning, he is still on high flow nasal cannula. No acute overnight events. Exam Vital Signs Temp Pulse Resp BP Pulse Ox O2 Del Method O2 Flow Rate 98.0 F 76 26 H 131/94 H 96 High Flow Nasal Cannula 15 05/23/24 04:00 05/23/24 07:13 05/23/24 07:13 05/23/24 04:00 05/23/24 07:13 05/23/24 04:00 05/23/24 07:13 FiO2 50 05/23/24 07:13 Narrative Exam GENERAL: Comfortable adult seen resting comfortably in hospital bed, no acute distress on HFNC HEENT: Normocephalic, atraumatic. Pupils are equal and reactive. Oral mucosa is moist. NECK: Supple, nontender, no JVD CHEST: Symmetrical, atraumatic and with equal expansion ,Nontender on palpation CARDIOVASCULAR: Heart regular rhythm & rate. S1/S2. no murmur or gallop rub or extra beats. LUNGS: Clear to auscultation bilaterally with symmetrical chest rise. No laboring tachypnea or wheezing. No intercostal subcostal retraction. No rales and no rhonchi. ABDOMEN: Soft, flat, nontender to palpation, no guarding or rebound tenderness. Active and normal bowel sounds. EXTREMITIES:Moves all 4 extremities,No B/L LE edema. SKIN: Warm and dry, no jaundice or rashes noted. NEURO: Patient is AO x 3, Cranial nerves II through XII grossly intact. There is no focal neurologic deficits noted. PSYCHIATRIC: Patient is in normal mood, cooperative, no SI or HI or hallucinations. Objective Labs 05/25/24 04:19 05/25/24 04:19 Labs: Laboratory Results - last 24 hr 05/21/24 05/22/24 05/22/24 23:10 06:28 10:02 WBC RBC Hgb Hct MCV MCH MCHC RDW Std Deviation Plt Count Neut % (Auto) Lymph % (Auto) [place] % (Auto) Eos % (Auto) Baso % (Auto) Neut # (Auto) Lymph # (Auto) [place] # (Auto) Eos # (Auto) Baso # (Auto) Immature Gran # (Auto) Absolute Nucleated RBC Immature Gran % Nucleated RBC % PT INR APTT 39.2 H D Sodium 137 Potassium 2.9 L Chloride 98 Carbon Dioxide 28.8 Anion Gap 10 BUN 54 H Creatinine 2.7 H Estim Creat Clear Calc 33.9 L eGFR 27 L BUN/Creatinine Ratio 20 Glucose 91 Calculated Osmolality 288 Lactic Acid 2.1 H Calcium 8.3 Corrected Calcium 9.1 Phosphorus 4.9 Magnesium 1.8 Total Bilirubin 4.3 H D AST 166 H ALT 128 H Alkaline Phosphatase 76 Total Creatine Kinase 926 H Total Protein 6.0 Albumin 3.0 L Globulin 3.0 Albumin/Globulin Ratio 1.0 L Random Vancomycin 15.4 Syphilis Serology Coccidioides IgM Ab Negative HIV 1&2 Antibody Rapid Non-Reactive 05/22/24 05/22/24 05/23/24 14:55 22:12 05:07 WBC 11.4 H RBC 4.26 L Hgb 13.6 Hct 38.9 L MCV 91 MCH 31.9 MCHC 35.0 RDW Std Deviation 47.8 H Plt Count 170 Neut % (Auto) 86 H Lymph % (Auto) 9 L [place] % (Auto) 4 Eos % (Auto) 0 Baso % (Auto) 0 Neut # (Auto) 9.8 H Lymph # (Auto) 1.1 [place] # (Auto) 0.5 Eos # (Auto) 0.0 Baso # (Auto) 0.0 Immature Gran # (Auto) 0.07 H Absolute Nucleated RBC 0.00 Immature Gran % 1 H Nucleated RBC % 0 PT 12.5 H D INR 1.2 APTT 43.9 H 53.9 H D Sodium 137 142 Potassium 3.5 D 3.0 L D Chloride 99 102 Carbon Dioxide 27.6 28.4 Anion Gap 10 12 BUN 51 H 59 H Creatinine 2.7 H 2.6 H Estim Creat Clear Calc 33.9 L 35.2 L eGFR 27 L 28 L BUN/Creatinine Ratio 19 23 H Glucose 106 97 Calculated Osmolality 287 299 H Lactic Acid Calcium 8.0 L 8.4 Corrected Calcium 8.8 9.2 Phosphorus 3.8 Magnesium 2.3 Total Bilirubin 4.3 H 3.6 H D AST 170 H 175 H ALT 129 H 133 H Alkaline Phosphatase 73 72 Total Creatine Kinase Total Protein 6.0 6.2 Albumin 3.0 L 3.0 L Globulin 3.0 3.2 Albumin/Globulin Ratio 1.0 L 0.9 L Random Vancomycin Syphilis Serology Nonreactive Coccidioides IgM Ab HIV 1&2 Antibody Rapid ABG Interpretation ABG results: 05/20/24 05/21/24 05/22/24 17:52 04:45 00:39 ABG pH 7.36 7.42 7.53 H D ABG pCO2 33 44 D 38 ABG pO2 375 H 107 D 43 L* D ABG HCO3 19 L 29 H 31 H ABG O2 Saturation 101 H 98 80 L ABG Base Excess -6 L 3 8 H 05/22/24 00:56 ABG pH 7.50 H ABG pCO2 40 ABG pO2 64 L D ABG HCO3 31 H ABG O2 Saturation 93 ABG Base Excess 7 H Quality Measures Quality Measures none Assessment & Plan Assessment Current Active Medications: Generic Name Dose Route Start Last Admin Trade Name Freq PRN Reason Stop Dose Admin Acetaminophen 650 mg 05/20/24 01:03 05/21/24 18:34 Acetaminophen 325 Mg Tablet PO 06/19/24 01:02 650 mg Q6H PRN Administration Pain 1-3 or Fever >100.3 Albuterol/Ipratropium 3 ml 05/21/24 13:00 05/23/24 07:13 Albuterol/Ipratropium (Duoneb) Rt Yuli 3 Ml Nebu INH 06/20/24 12:59 3 ml Q6HRRT MICAH Administration Bumetanide 2 mg 05/21/24 11:32 05/22/24 09:20 Bumetanide Inj 0.25 Mg/Ml Vial 4 Ml IVP 06/20/24 08:59 2 mg BID MICAH Administration Hydralazine HCl 10 mg 05/21/24 08:25 Hydralazine Inj 20 Mg/Ml Vial IV 06/20/24 08:24 Q4HR PRN SBP>180 Heparin Sodium/Dextrose 25,000 unit in 250 mls @ 9.968 mls/hr 05/22/24 15:30 05/23/24 06:59 Heparin In D5w Ivpb IV 06/05/24 15:29 14 units/kg/hr .Q24H MICAH 11.629 mls/hr Titration Protocol 12 UNITS/KG/HR Potassium Chloride 10 meq in 100 mls @ 100 mls/hr 05/23/24 07:00 05/23/24 07:33 Kcl Ivpb IV 05/23/24 12:59 100 mls/hr Q1H MICAH Administration Ampicillin Sodium/Sulbactam 100 mls @ 200 mls/hr 05/23/24 12:00 Sodium 3 gm/ Sodium Chloride IV 05/30/24 11:59 Q6HR MICAH Ondansetron HCl 4 mg 05/20/24 01:03 Ondansetron Inj 2 Mg/Ml Inj 2 Ml IV 06/19/24 01:02 Q6H PRN NAUSEA OR VOMITING Protocol Pantoprazole Sodium 40 mg 05/20/24 21:00 05/22/24 21:10 Pantoprazole Inj 40 Mg Vial IVP 06/19/24 20:59 40 mg HS MICAH Administration Pharmacy Consult 1 each 05/21/24 08:42 Pharmacy Renal Dose Adjustment 1 Ea XX 06/20/24 08:41 PRN PRN CONSULT Sennosides 1 tab 05/23/24 07:55 Senna Tablet PO 06/19/24 08:59 QDAY PRN constipation Protocol Plan 4 yrs old with PMH of HTN, ckd. heart failure with preserved EF , meth use was admitted on 05/19/20 for HTN emergency and man who presented with hypertensive emergency and Acute hypoxic respi failure . rapid respons was called over night , for change in mentation and neurology was consulted. Thrombolytic was not recommended by tele neuro last night because unclear of his last well known . head ct was negative for acute bleed. ? ? #Embolic infracts lt temporal bilatral paietal lobes . -sudden change in mentation overnight, pt is still obtunded, is on high flow -Head ct -Negative for acute hemorrhage, mass effect or midline shift -head/neck CTA- Acute left sphenoid sinusitis,Partially visualized descending thoracic aortic aneurysmal dilatation with extensive thrombus, recommend CTA chest post intravenous contrast follow-up,No significant neck arterial stenoses,No cerebral large vessel occlusions or thrombus -Echo on 05/20 showed Small LV size, moderate LVH with low normal ejection fraction at around 50% Flattened interatrial septum in both systole and diastole indicating both RV pressure and volume overload. Severely dilated right ventricle with moderate RV systolic dysfunction and massively dilated right atrium. Moderate to severe TR and estimated RVSP around 60 mmHg indicating moderate to severe pulmonary hypertension, Trace MR and dilated IVC -MRI- Multiple tiny embolic type infarcts left temporal lobe bilateral parietal lobes -Lipid pannel wnl ,TSH 2.39 ,ammonia 30 -Patient is not a candidate for Thrombolytic.LWN >4,5 hrs -Bedside Swallow Eval -DVT Prophylaxis -IV Fluids, Normal Saline -Head of Bed 30 Degrees -Euglycemia and Avoid Hyperthermia (PRN Acetaminophen) -Continue heparin drip -Consider doing INESSA -rest medical management as per primary team . Case discussed with my attending Ray Clarke MD,[id number] Attending Provider Attestation/Addendum I personally have seen and examined the patient at the bedside and agree with resident findings, assessment and plan of care. Continue with current management as his mental status is improving, no focal neurological deficit noted. Able to move both upper and lower extremities, denies any chest pain or palpitation. MRI brain showed multiple infarcts suspicious for cardioembolic. Continue with heparin. Follow-up with the CT angiogram as PE suspected.
--- NOTE | 2024-05-23 09:42 | PD.RESPRO ---
Documentation for date of: 05/23/24 Subjective Subjective Interval history: Patient was seen at bedside this morning. No overnight events. Patient still on high flow nasal cannula. Patient is AO x 2 (not to time) and is still somewhat somnolent. Patient had stroke alert called due to changes in mentation and brain MRI with MRA showed multiple tiny embolic infarcts of the left temporal lobe and bilateral parietal lobes. 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 Will continue with heparin drip for total 48 hours. Primary care team wanted patient to undergo INESSA due to an acute stroke and thrombus in the descending aorta, but at this time patient is stable hemodynamically and could possibly decline during the procedure. Will follow-up on neurology recommendations on anticoagulation. Recommend to continue aspirin and statin. Will follow up on CTA chest Patient had total balance of -1.4 L in the past 24 hours. Patient's kidney function seems stable with BUN 59 and creatinine 2.6, may need temporary dialysis. Potassium 3 and magnesium 2.3 today, recommend to keep potassium and magnesium above 4 and 2 to avoid any further arrhythmias. Echo on 05/20/2024 had the following findings Small LV size, moderate LVH with low normal ejection fraction at around 50%. Flattened interatrial septum in both systole and diastole indicating both RV pressure and volume overload. Severely dilated right ventricle with moderate RV systolic dysfunction and massively dilated right atrium Moderate to severe TR and estimated RVSP around 60 mmHg indicating moderate to severe pulmonary hypertension Trace MR and dilated IVC Exam Vital Signs Temp Pulse Resp BP Pulse Ox O2 Del Method O2 Flow Rate 98.4 F 78 20 132/77 H 93 L High Flow Nasal Cannula 15 05/23/24 08:00 05/23/24 08:00 05/23/24 08:00 05/23/24 08:00 05/23/24 08:00 05/23/24 08:00 05/23/24 08:00 FiO2 50 05/23/24 08:00 Narrative Exam General:AO x 2 (not to time), somnolent, disheveled Eyes: PERRL, EOMI. icteric, vision grossly intact. Eyes bulging Ears: No ear pain, no ear discharge, Hearing grossly intact. Nose: No nasal discharge. Mouth/Throat: dry mucous membranes, no redness, no lesions. Neck: Neck supple, non-tender, no cervical lymphadenopathy. Lungs: Decreased in lower lobes, No accessory muscle use. Cardio: Normal S1/S2, regular rhythm, no murmurs, no JVD Abdomen: Soft, non-tender, no palpable masses, peristalsis present, no guarding or rebound. Extremities: Symmetrical, no significant deformities, 1+ peripheral edema , non-tender, peripheral pulses presents. Skin: No rashes, no lesions, warm to touch. Neuro: No focal neurological deficits. motor and sensory intact Objective Labs 05/23/24 05:07 05/23/24 05:07 Labs: Laboratory Results - last 24 hr 05/21/24 05/22/24 05/22/24 23:10 06:28 10:02 WBC RBC Hgb Hct MCV MCH MCHC RDW Std Deviation Plt Count Neut % (Auto) Lymph % (Auto) [place] % (Auto) Eos % (Auto) Baso % (Auto) Neut # (Auto) Lymph # (Auto) [place] # (Auto) Eos # (Auto) Baso # (Auto) Immature Gran # (Auto) Absolute Nucleated RBC Immature Gran % Nucleated RBC % PT INR APTT 39.2 H D Sodium Potassium Chloride Carbon Dioxide Anion Gap BUN Creatinine Estim Creat Clear Calc eGFR BUN/Creatinine Ratio Glucose Calculated Osmolality Lactic Acid 2.1 H Calcium Corrected Calcium Phosphorus Magnesium Total Bilirubin AST ALT Alkaline Phosphatase Total Protein Albumin Globulin Albumin/Globulin Ratio Random Vancomycin Syphilis Serology Coccidioides IgM Ab Negative HIV 1&2 Antibody Rapid Non-Reactive 05/22/24 05/22/24 05/23/24 14:55 22:12 05:07 WBC 11.4 H RBC 4.26 L Hgb 13.6 Hct 38.9 L MCV 91 MCH 31.9 MCHC 35.0 RDW Std Deviation 47.8 H Plt Count 170 Neut % (Auto) 86 H Lymph % (Auto) 9 L [place] % (Auto) 4 Eos % (Auto) 0 Baso % (Auto) 0 Neut # (Auto) 9.8 H Lymph # (Auto) 1.1 [place] # (Auto) 0.5 Eos # (Auto) 0.0 Baso # (Auto) 0.0 Immature Gran # (Auto) 0.07 H Absolute Nucleated RBC 0.00 Immature Gran % 1 H Nucleated RBC % 0 PT 12.5 H D INR 1.2 APTT 43.9 H 53.9 H D Sodium 137 142 Potassium 3.5 D 3.0 L D Chloride 99 102 Carbon Dioxide 27.6 28.4 Anion Gap 10 12 BUN 51 H 59 H Creatinine 2.7 H 2.6 H Estim Creat Clear Calc 33.9 L 35.2 L eGFR 27 L 28 L BUN/Creatinine Ratio 19 23 H Glucose 106 97 Calculated Osmolality 287 299 H Lactic Acid Calcium 8.0 L 8.4 Corrected Calcium 8.8 9.2 Phosphorus 3.8 Magnesium 2.3 Total Bilirubin 4.3 H 3.6 H D AST 170 H 175 H ALT 129 H 133 H Alkaline Phosphatase 73 72 Total Protein 6.0 6.2 Albumin 3.0 L 3.0 L Globulin 3.0 3.2 Albumin/Globulin Ratio 1.0 L 0.9 L Random Vancomycin Cancelled Syphilis Serology Nonreactive Coccidioides IgM Ab HIV 1&2 Antibody Rapid ABG Interpretation ABG results: 05/20/24 05/21/24 05/22/24 17:52 04:45 00:39 ABG pH 7.36 7.42 7.53 H D ABG pCO2 33 44 D 38 ABG pO2 375 H 107 D 43 L* D ABG HCO3 19 L 29 H 31 H ABG O2 Saturation 101 H 98 80 L ABG Base Excess -6 L 3 8 H 05/22/24 00:56 ABG pH 7.50 H ABG pCO2 40 ABG pO2 64 L D ABG HCO3 31 H ABG O2 Saturation 93 ABG Base Excess 7 H Quality Measures Quality Measures none Assessment & Plan Assessment Current Active Medications: Generic Name Dose Route Start Last Admin Trade Name Freq PRN Reason Stop Dose Admin Acetaminophen 650 mg 05/20/24 01:03 05/21/24 18:34 Acetaminophen 325 Mg Tablet PO 06/19/24 01:02 650 mg Q6H PRN Administration Pain 1-3 or Fever >100.3 Albuterol/Ipratropium 3 ml 05/21/24 13:00 05/23/24 07:13 Albuterol/Ipratropium (Duoneb) Rt Yuli 3 Ml Nebu INH 06/20/24 12:59 3 ml Q6HRRT MICAH Administration Bumetanide 2 mg 05/21/24 11:32 05/22/24 09:20 Bumetanide Inj 0.25 Mg/Ml Vial 4 Ml IVP 06/20/24 08:59 2 mg BID MICAH Administration Hydralazine HCl 10 mg 12/17/24 08:25 Hydralazine Inj 20 Mg/Ml Vial IV 06/20/24 08:24 Q4HR PRN SBP>180 Heparin Sodium/Dextrose 25,000 unit in 250 mls @ 9.968 mls/hr 05/22/24 15:30 05/23/24 06:59 Heparin In D5w Ivpb IV 06/05/24 15:29 14 units/kg/hr .Q24H MICAH 11.629 mls/hr Titration Protocol 12 UNITS/KG/HR Potassium Chloride 10 meq in 100 mls @ 100 mls/hr 05/23/24 07:00 05/23/24 09:33 Kcl Ivpb IV 05/23/24 12:59 100 mls/hr Q1H MICAH Administration Ampicillin Sodium/Sulbactam 100 mls @ 200 mls/hr 05/23/24 12:00 Sodium 3 gm/ Sodium Chloride IV 05/30/24 11:59 Q6HR MICAH Ondansetron HCl 4 mg 05/20/24 01:03 Ondansetron Inj 2 Mg/Ml Inj 2 Ml IV 06/19/24 01:02 Q6H PRN NAUSEA OR VOMITING Protocol Pantoprazole Sodium 40 mg 05/20/24 21:00 05/22/24 21:10 Pantoprazole Inj 40 Mg Vial IVP 06/19/24 20:59 40 mg HS MICAH Administration Pharmacy Consult 1 each 05/21/24 08:42 Pharmacy Renal Dose Adjustment 1 Ea XX 06/20/24 08:41 PRN PRN CONSULT Sennosides 1 tab 05/23/24 07:55 Senna Tablet PO 06/19/24 08:59 QDAY PRN constipation Protocol Plan 54-year-old male with past medical history of meth use, HFpEF (50 to 55% on 2022), CKD, and hypertension was admitted to the hospital on 05/20/2024 due to acute decompensated heart failure exacerbation. 1. Acute decompensated heart failure exacerbation (EF 50 to 55% on 2022) 2. Cardiogenic shock? ?Patient came in with shortness of breath and bilateral lower extremity swelling ? Initial BNP was more than 3280 ? 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 Patient clinically looks fluid overloaded and having shortness of breath with having to stop in between sentences. -Patient off pressors and maintaining good BP ?Echo on 03/15/2023 had the following findings: Normal LV size and function. Moderate LVH. Diastolic dysfunction stage I. Estimated EF 50 to 55%. Normal RV size and function. Trace TR. -Echo on 05/20/2024 had the following findings Small LV size, moderate LVH with low normal ejection fraction at around 50%. Flattened interatrial septum in both systole and diastole indicating both RV pressure and volume overload. Severely dilated right ventricle with moderate RV systolic dysfunction and massively dilated right atrium Moderate to severe TR and estimated RVSP around 60 mmHg indicating moderate to severe pulmonary hypertension Trace MR and dilated IVC Plan: ? Currently holding diuretics given worsening in kidney function. -Recommend to place patient on high intensity statin and aspirin ? Strict WES's ? Daily weights ?Fluid restrictions ?Low-sodium diet ? Recommend to strictly replace potassium and magnesium to keep above 4 and 2 respectively to avoid any further arrhythmias 3. Hypertensive emergency 4. NSTEMI 5. Descending thoracic aorta thrombus ?Patient's initial blood pressure was 217/126 ? Troponins were elevated at 0.287 on admission and up trended to 0.567 ?EKG did not show any acute ST changes ?NSTEMI most likely type II in the setting of acute decompensated heart failure exacerbation and hypertensive emergency -Primary care team wanted patient to undergo INESSA due to an acute stroke and thrombus in the descending aorta, but at this time patient is stable hemodynamically and could possibly decline during the procedure. Plan: -Recommend no further troponins. -Can continue heparin drip for a total of 48 hrs if no contraindications. -Recommend to place patient on high intensity statin and aspirin -Recommend to get nephrology consult -Recommend vasopressor support as needed as patient most likely was in septic versus cardiogenic shock. 6. Acute embolic infarct of L temporal lobe and ALEX parietal lobes -Primary care team wanted patient to undergo INESSA due to an acute stroke and thrombus in the descending aorta, but at this time patient is stable hemodynamically and could possibly decline during the procedure. ?Continue current management as per primary care team 7. Cirrhosis 8. Congestive hepatopathy 9. Ascites 10. Transaminitis 11. Hyperbilirubinemia ?Abdomen/pelvis CT shows cirrhosis and ascites ? Abdominal ultrasound showed cirrhosis ? AST 112, ALT 84 and 2 bilirubin 3.9 on admission ?Presents most likely on congestive hepatopathy most likely secondary to congestive heart failure ?Continue current management as per primary care team 12. CKD ? Initial creatinine was 2.1 and BUN 26 on admission ?Could be secondary to cardiorenal syndrome ? Continue current management as per primary care team 13. Polysubstance use (meth and THC) ? U tox was positive for meth and THC ? Continue current management as per primary care team Continue rest of management as per primary team. We are grateful to be able to participate in Mr. De's care. Thank you for the consult Plan of care discussed with attending Senior Chemical Process Engineer, Dr Vero Jang MD PGY-1 Attending Provider Attestation/Addendum I have personally seen and examined the patient separately on the above date of service and discussed the plan of care with the resident. I reviewed the resident Dr. Pelayo consultation progress note and agree with the resident findings and plan in the note above and have also edited the documentation to reflect my findings and plan. MRI completed today showed multiple tiny embolic type infarcts involving the left temporal lobe, bilateral parietal lobes. Patient still appears to be altered during the examination ammonia level is 30 and patient still continues to be on oxygen. Patient was admitted for CHF exacerbation which is mostly secondary to right heart failure as well as diastolic dysfunction and HFpEF as discussed previously. Diuretics on hold due to worsening kidney function which showed BUN of 51 creatinine of 2.7 right now. Diuresis on hold and patient is still fluid overloaded. Patient may need dialysis and nephrology is following the patient. Of note patient also had questionable thrombus in the descending aorta and primary team planning to do a CT of the thoracic as well as the abdominal aorta. This would increase the risk of contrast-induced nephropathy and possible dialysis. Family is aware nephrology team following the patient. Neurology is recommending a possible at later time when to rule out a cardiac embolic source but patient also has aortic disease as noted above. Patient has been on heparin drip unfortunately patient did have a stroke unclear if he was subtherapeutic but his overall presentation appears to be that the patient did actually present with a stroke even on the day of admission as he continues to be altered at the same level - will request neuro input on it. Patient respiratory status is tenuous and he was recently intubated after the acute hypoxic respiratory failure and still using oxygen and he is at high risk of reintubation and mechanical ventilation with the procedure. Patient is already on heparin drip for the NSTEMI with for 48 hours. Can continue with anticoagulation if there is no contraindications and recommend to talk to urology regarding Eliquis or Eliquis and aspirin. Patient can be considered for INESSA later when his respiratory status is stable. Can continue with anticoagulation for now. Call neurology staff to discuss the plan of the care for the patient and awaiting their call. Remy Pham M.D. Interventional Cardiology
--- NOTE | 2024-05-23 10:05 | PCS.ST ---
Swallow Re-Evaluation completed. See report for details. Recommend to advance to Dysphagia 3/Reg liquids. ST will follow up
--- NOTE | 2024-05-23 11:06 | PCS.ST ---
Completed swallow re-evaluation. See report for details. Dysphagia [address] will follow up
--- NOTE | 2024-05-23 11:22 | ESPR_ITS ---
<Statement entered by Julien Alas MD - 05/23/24 14:35> Patient was seen and examined at the bedside. Patient was seen more alert and oriented to time place and person and was only showing some mild delayed response to questions. He appears to be more conversational than yesterday and was seen on high flow which has been weaning off saturating above 90%. MRI brain showed embolic infarction both parietal lobes. Neurology recommended to defer CTA chest and continue heparin drip and proceed with hypercoagulability workup and perform INESSA after cardiology consultation. Cardiology deferred INESSA given patient's current hemodynamic instability and possibility of decline during procedure. Cardiology recommended to continue heparin drip x 48 hours and likely DC heparin drip tomorrow. Blood cultures have been negative for first 24 hours therefore we de-escalated from Zosyn to Unasyn. Will continue with neurochecks every 4 hourly. Patient passed swallow screen. PT recommendations pending. Holding blood pressure medications given patient's blood pressure has been soft. Electrolytes KCl was repleted. Patient's family was updated. Kidney function showed very mild improvement. [employer] and neurologist recommended to avoid any nephrotoxic agents and deferred to do CTA chest so that kidney functions are improved. Patient is making good urine output. Will continue with current management. All labs and orders were reviewed. I saw and examined the patient, and I agree with current management stated by Dr Fiorella MD,PGY1. Plan of care was discussed with the attending physician and resident physician. Disclaimer: Despite multiple revisions, due to the dictation software being used, the document bellow may not be free of grammatical errors including phonetic/typographic errors. However, this does not deter from our commitment to providing health care in the patient's best interest in mind. Dr. Evette MD, PGY 2 Documentation for date of: 05/23/24 Subjective Subjective Interval history: Patient is a 54-year-old male with a past medical history of hypertension, chronic kidney disease stage III, history of congestive heart failure HFpEF- diastolic dysfunction stage I 50 to 55% (03/15/2023), and history of poly- substance use disorder (meth/THC) who was initially admitted for acute hypoxic respiratory failure and CHF exacerbation, then upgraded to ICU and downgraded on 05/22/2024. No Overnight events reported. Patient was transitioned from [place]i Flow-->[place]. Patient was alert upon entering the room, appeared to have improved work of breathing. Patient was aware to self, location, and month,knew [place] was coming up. Improved lower pedal edema, despite holding bumex. Patient denied chest pain or shortness of breath, stated improved. Possible CTA Chest tomorrow. Exam Vital Signs Temp Pulse Resp BP Pulse Ox O2 Del Method O2 Flow Rate 98.4 F 71 22 H 132/77 H 95 High Flow Nasal Cannula 15 05/23/24 08:00 05/23/24 10:54 05/23/24 10:54 05/23/24 08:00 05/23/24 10:54 05/23/24 08:00 05/23/24 10:54 FiO2 50 05/23/24 10:54 Narrative Exam General Appearance: Alert & Oriented X3, well-nourished male who is lying in bed in acute distress, with improved work of breathing. HEENT: Skull symmetrical and atraumatic. Conjunctivae pale pink and moist. Pupils equal, round, reactive to light and accommodation (PERRL). External ear without lesion or discharge. Dry Mucosa. Cardio: Normal Rate and Rhythm with S1 and S2 heart sounds. No murmurs or extra heart sounds auscultated. No bruits on carotid auscultation. improved edema +2 Lungs: Symmetric with good expansion. Chest and back non-tender. Breath sounds vesicular with improving crackles Abdomen: Non-tender, Non-distended, Normal Reactive Bowel Sounds Neuro: YES Alert, YES cooperative, YES oriented to person, YES place, and YES to month but not year time. Speech clear. CN grossly intact. Upper motor strength 5/5 and Lower motor strength 5/5. Sensation intact. Objective Labs 05/23/24 05:07 05/23/24 05:07 Labs: Laboratory Results - last 24 hr 05/21/24 05/22/24 05/22/24 23:10 06:28 14:55 WBC RBC Hgb Hct MCV MCH MCHC RDW Std Deviation Plt Count Neut % (Auto) Lymph % (Auto) [place] % (Auto) Eos % (Auto) Baso % (Auto) Neut # (Auto) Lymph # (Auto) [place] # (Auto) Eos # (Auto) Baso # (Auto) Immature Gran # (Auto) Absolute Nucleated RBC Immature Gran % Nucleated RBC % PT INR APTT Sodium 137 Potassium 3.5 D Chloride 99 Carbon Dioxide 27.6 Anion Gap 10 BUN 51 H Creatinine 2.7 H Estim Creat Clear Calc 33.9 L eGFR 27 L BUN/Creatinine Ratio 19 Glucose 106 Calculated Osmolality 287 Calcium 8.0 L Corrected Calcium 8.8 Phosphorus Magnesium Total Bilirubin 4.3 H AST 170 H ALT 129 H Alkaline Phosphatase 73 Total Protein 6.0 Albumin 3.0 L Globulin 3.0 Albumin/Globulin Ratio 1.0 L Random Vancomycin Syphilis Serology Coccidioides IgM Ab Negative HIV 1&2 Antibody Rapid Non-Reactive 05/22/24 05/23/24 22:12 05:07 WBC 11.4 H RBC 4.26 L Hgb 13.6 Hct 38.9 L MCV 91 MCH 31.9 MCHC 35.0 RDW Std Deviation 47.8 H Plt Count 170 Neut % (Auto) 86 H Lymph % (Auto) 9 L [place] % (Auto) 4 Eos % (Auto) 0 Baso % (Auto) 0 Neut # (Auto) 9.8 H Lymph # (Auto) 1.1 [place] # (Auto) 0.5 Eos # (Auto) 0.0 Baso # (Auto) 0.0 Immature Gran # (Auto) 0.07 H Absolute Nucleated RBC 0.00 Immature Gran % 1 H Nucleated RBC % 0 PT 12.5 H D INR 1.2 APTT 43.9 H 53.9 H D Sodium 142 Potassium 3.0 L D Chloride 102 Carbon Dioxide 28.4 Anion Gap 12 BUN 59 H Creatinine 2.6 H Estim Creat Clear Calc 35.2 L eGFR 28 L BUN/Creatinine Ratio 23 H Glucose 97 Calculated Osmolality 299 H Calcium 8.4 Corrected Calcium 9.2 Phosphorus 3.8 Magnesium 2.3 Total Bilirubin 3.6 H D AST 175 H ALT 133 H Alkaline Phosphatase 72 Total Protein 6.2 Albumin 3.0 L Globulin 3.2 Albumin/Globulin Ratio 0.9 L Random Vancomycin Cancelled Syphilis Serology Nonreactive Coccidioides IgM Ab HIV 1&2 Antibody Rapid ABG Interpretation ABG results: 05/20/24 05/21/24 05/22/24 17:52 04:45 00:39 ABG pH 7.36 7.42 7.53 H D ABG pCO2 33 44 D 38 ABG pO2 375 H 107 D 43 L* D ABG HCO3 19 L 29 H 31 H ABG O2 Saturation 101 H 98 80 L ABG Base Excess -6 L 3 8 H 05/22/24 00:56 ABG pH 7.50 H ABG pCO2 40 ABG pO2 64 L D ABG HCO3 31 H ABG O2 Saturation 93 ABG Base Excess 7 H Quality Measures Quality Measures none Assessment & Plan Assessment Current Active Medications: Generic Name Dose Route Start Last Admin Trade Name Freq PRN Reason Stop Dose Admin Acetaminophen 650 mg 05/20/24 01:03 05/21/24 18:34 Acetaminophen 325 Mg Tablet PO 06/19/24 01:02 650 mg Q6H PRN Administration Pain 1-3 or Fever >100.3 Albuterol/Ipratropium 3 ml 05/21/24 13:00 05/23/24 07:13 Albuterol/Ipratropium (Duoneb) Rt Yuli 3 Ml Nebu INH 06/20/24 12:59 3 ml Q6HRRT MICAH Administration Bumetanide 2 mg 05/21/24 11:32 05/22/24 09:20 Bumetanide Inj 0.25 Mg/Ml Vial 4 Ml IVP 06/20/24 08:59 2 mg BID MICAH Administration Hydralazine HCl 10 mg 05/21/24 08:25 Hydralazine Inj 20 Mg/Ml Vial IV 06/20/24 08:24 Q4HR PRN SBP>180 Heparin Sodium/Dextrose 25,000 unit in 250 mls @ 9.968 mls/hr 05/22/24 15:30 05/23/24 06:59 Heparin In D5w Ivpb IV 06/05/24 15:29 14 units/kg/hr .Q24H MICAH 11.629 mls/hr Titration Protocol 12 UNITS/KG/HR Potassium Chloride 10 meq in 100 mls @ 100 mls/hr 05/23/24 07:00 05/23/24 11:02 Kcl Ivpb IV 05/23/24 12:59 100 mls/hr Q1H MICAH Administration Ampicillin Sodium/Sulbactam 100 mls @ 200 mls/hr 05/23/24 12:00 Sodium 3 gm/ Sodium Chloride IV 05/30/24 11:59 Q6HR MICAH Ondansetron HCl 4 mg 05/20/24 01:03 Ondansetron Inj 2 Mg/Ml Inj 2 Ml IV 06/19/24 01:02 Q6H PRN NAUSEA OR VOMITING Protocol Pantoprazole Sodium 40 mg 05/20/24 21:00 05/22/24 21:10 Pantoprazole Inj 40 Mg Vial IVP 06/19/24 20:59 40 mg HS MICAH Administration Pharmacy Consult 1 each 05/21/24 08:42 Pharmacy Renal Dose Adjustment 1 Ea XX 06/20/24 08:41 PRN PRN CONSULT Sennosides 1 tab 05/23/24 07:55 Senna Tablet PO 06/19/24 08:59 QDAY PRN constipation Protocol Plan Patient is a 54-year-old male with a past medical history of hypertension, chronic kidney disease stage III, history of congestive heart failure HFpEF- diastolic dysfunction stage I 50 to 55% (03/15/2023), and history of poly- substance use disorder (meth/THC) who was initially admitted for acute hypoxic respiratory failure and CHF exacerbation, then upgraded to ICU and downgraded on 05/22/2024. #Acute Metabolic Encepholopathy, improving #Hypoxemia vs Sepsis Etiology: Likely secondary to hypoxemia given CHF exacerbation on admission requiring intubation prior to being on floors and ischemic stroke as noted on MRI brain DDx: Poly-substance Use disorder secondary to methamphetamine as withdraw can present as hyperisonia or insominia vs Sepsis, improved -from CAP/Aspiration Diagnostics: -Head/Neck CTA (05/22/2024): Partially visualized descending thoracic aortic aneurysmal dilation w/ extensive thrombus, CTA recommend . NO significan neck arterial stenoses. No cerebral large vessel occlusions or thrombus. -MRI Brain (05/22/2024): Miltiple tiny embolic type infartcs left temporal lobe bilateral parietal lobes as above -Lipid Panetl Triglycerides 71, Cholesterol 92, LDL 49, HDL 29, -TSH 2.39 -Utox Positive THC and Meth -Chest x-ray: Mild Bibasilar Pneumonia -CT Head: negative for hemorrhage or mass effect. ASCVD 3.6% 10 year cardiovascular risk, consider moderate to high intensity, currently no Atorvastatin to be added Plan: -Heparin Drip continue for 48 hours, re-access at 05/24/2024 -PT and PTT -Avoid Hyperthermia and keep Euglycemic -Consider INESSA, currently no plans for INESSA -Speech Evaluation: Diet Renal- Dysphagia 3 -Physical Therapy:Home with Oxygen & Home Health -Out of Permissive HTN -consider bupropion if withdraw symptoms are present -Neurology Consulted, appreciate recommendations, neurology #CHF Exacerbation, imroving #CHF, HFpEF systolic dysfunction with massively dilated right atrium EF 50% #Pulmonary HTN #Cor Pulmonale #Hypertension #NSTEMI I vs II (?) #Hypertensive Emergency, Resolved #Cardiogenic Shock, Resolved. Etiology: Patient has an extensive history of CHF, systolic dysfunciton with an EF of 50% and elevated pulmonary artery pressure with atrial dilation. In the setting of methamphetamine use, this is likely the cause as both are highly associated with atrial dilation and contributing to CHF-->consider Cor Pulmonale as left ventricle appears normal size and EKG noted right ventricle hypertrophy. On admission, patient likely suffered cardiogenic show from possible vasopasm from meth us and multiple anti-hypertensive medication. Now presenting with troponemia with no ST elevation and likely NSTEMI type II but type I can not be rule out. Diagnostics: Echo: Systolic Dysfunciton, massively dilated right atrium, EF 50%, RVSP 60 mm Hg (moderate severe pulmonary hypertension) Troponin (05/22/2024) 2.926 and 2.721 EKG (05/21/2024): Sinus Tachycardia Current Output 1506; Weight 84.22 kg (1kg increase from 05/22, holding BUMEX for CTA chest & improved kidney function). Plan -Holding Bumex given MRI, -Daily weight checks -Fluid Restricted -Diet, Na restricted -Keep >4 and Mg >2 -Cardiology Consulted, Dr. Pham, appreciate recommendations #Acute hypoxic respiratory Failure, improving #Pneumonia, improved #Aortic Thrombus #Obstructive Shock (?) #Sepsis, secondary to pneumonia with end organ failure, Resolved. Etiology: Acute hypoxic respiratory failure is likely multi-factorial but CHF exacerbation likely contributing to hypoxemia on addmission given elevated BNP and chest xray on admission showing pulmonary vascular congestion. Sepsis secondary to pneumonia likely contributing to increased work of breathing given update Cxr showing bilateral pneumonia. Consider aspiration pneumonia and increasing Zosyn dosage. Sepsis noted overnight, with a Fever of 101, RR 23, with source of infection as noted in Cxr showing pneumonia. Although Well's criteria on admission was 0, concern for PE increased given possible thrombus noted on CTA neck. Current Well's criteria 3. On heparin drip for thrombus. Thrombus could also be causing respiratory failure leading to possible obstructive shock previous to ICU admission. Plan -Heparin for 48 hours, to complete on 05/24/2024 -CTA Chest-AM for 05/24/2024 -Zosyn 3.375 g (05/22/2024-05/23/2024)-->Augmentin 500 BID (05/23--) -blood culture-NO growth after 48 Hours. -Continue highflow support, until able to titrate down on FiO2 to reach [place] #LATASHA on CKD III-->CKD IV #hypokalemia Etiology: Patient has a past medical history of CHF with a BUN/Cr ratio of 19, thus maybe pre-renal given shock and CHF exacerbation, but worsening CKD likely given intrinsic failure. Initially patient was GFR of 31, now GFR worsening at 27, thus progressing towards end renal failure thus dialysis maybe a possibility. DDx: CKD secondary to Intrinsci renal failure from Meth use as it has been to lead to chronic kidney disease vs post renal obstruction given BPH Diagnostics: (05/22/2024) BUN 54 Cr 2.7 BUN/Cr 19, GFR 27-->(05/23/2024) BUN 59 Cr 2.6 BUN/Cr 23 Plan: -Continue to replete electrolytes in setting of bumex -currently holding Bumex given contrast with upcoming CTA chest -Avoid nephrotoxins -renally dose medication -follow BUN & Cr -renal diet #Cirrhosis secondary to Alcohol Use #Hyperbilirubinemia #Mild Transamitis Etiolgoy: Given shock, during ICU admission, likely secondary to hepatic ischemia and complicated by CHF exacerbation causing cardio-hepatic damage. History of Alcohol use disorder likely contributing to cirrhosis. Less likely secondary to infectious cause as hepatitis is negative vs autoimmune condition. LEONARDO and GGT pending. Plan -GGT Pending -monitor AST/ALT -monitor total bili #BPH Plan -no acute intervention -holding Tamulosin Health Maintenance: Disp: Pt is currently admitted to floors for further management of acute hypoxic respiratory failure, awaiting CTA chest. FEN: Renal Diet, Dysphagia 3 DVT: Heparin Code: Full Code - The patient's plan was discussed with attending Dr. Matute and senior residents Dr. Evette Barros MD PGY1 Internal Medicine Attending Provider Attestation/Addendum I, Luana Matute DO, attest that I was physically present for the carbajal portions of the service and evaluated the patient with the resident and I reviewed and discussed the case with the resident and agree with the resident's findings and plans of care as documented above Patient seen and eval this a.m. Mother and are at bedside. Patient is much more alert and articulate and responding to questions appropriately. Muscle strength and intact 4+ out of 5 in all 4 extremities. MRI was done overnight and shows evidence of acute embolic infarcts in left temporal lobe and bilateral parietal lobes. Neurology recommended INESSA. However, patient is high risk of undergoing sedation and cardiology does not recommend INESSA at this time. Will continue with anticoagulation. Renal function appears to be slightly improved today with a creatinine of 2.6, but BUN uptrending of 59. Patient was able to tolerate liquid diet this morning and is to be advanced to renal diet. Will continue to monitor renal function closely, as well as urine output. He remains on 5L oxymask. B/l lung connell are clear to auscultation b/l . B/L le edema is trace at this time. Bcx negative x 48h and afebrile overnight. DC vancomycin as MRSA is negative. Will switch Unasyn to Augmentin due to concern for aspiration pneumonia.
[2024-05-23] MEDS: AMPICILLIN/SULBAC INJ 3 GM in SODIUM CHLORIDE 0.9% (P) 100 ML IV (12:09)
--- NOTE | 2024-05-23 13:35 | ESPR_ITS ---
Documentation for date of: 05/23/24 Subjective Subjective Interval history: Mr. De is a 54-year-old male with past medical history of hypertension, CKD stage IIIb, HFpEF, methamphetamine use was admitted for acute hypoxic respiratory failure due to CHF exacerbation and hypertensive emergency. Patient was upgraded to ICU due to altered mental status due to hypotension and hypoxia. Therefore patient ended up getting intubated for airway protection and started on Levophed during ICU course. Patient was given reversal for calcium channel prasanna with calcium chloride x 3 after which patient's blood pressure showed improvement. 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 prison keeper today 05/22/24 patient had a stroke alert called for change in mental status GCS was 12, teleneuro assessed the patient and recommended further investigations. Patient's head and neck CTA was significant for descending thoracic aorta aneurysmal dilation with extensive thrombus and radiology recommended CTA chest post IV contrast follow-up. Patient is currently on Bumex 2 mg IV twice daily for IV diuresis, Zosyn for pneumonia coverage, heparin GGT due to concern of NSTEMI, Coreg, Flomax and DuoNeb treatments. Nephrology team consulted as patient has LATASHA on CKD with BUN 54, creatinine 2.7, GFR 27 per chart review patient's baseline GFR is 44. Patient seen at bedside, patient is arousable to sternal rub, unable to answer questions, not conversational, patient's mother at bedside case discussed extensively with her. Patient is currently on IV Bumex, will be given IV contrast for CTA. Discussed with patient's mother at bedside that if patient's renal function continues to decline patient might need dialysis temporarily, patient's mother is the primary decision maker and agrees with dialysis if needed. 05/23/2024: Patient seen at bedside today, patient is alert oriented x 3, MRI brain was positive for multiple tiny embolic type infarcts left temporal lobe bilateral parietal lobe, on examination gross movement is noted in all 4 limbs, patient's renal function improved slightly GFR 28, creatinine 2.6, BUN 59 compared to yesterday, IV diuretics were held. Patient is still pending CTA chest, discussed with family at bedside, agrees with temporary dialysis if needed. Would recommend to hold diuretics currently as patient's swelling has improved, saturating well on oxy mask 3-5 L. Will continue to monitor patient's renal function. Exam Vital Signs Temp Pulse Resp BP Pulse Ox O2 Del Method O2 Flow Rate 97.1 F 74 14 138/95 H 99 Oxy Mask 3 05/23/24 12:00 05/23/24 12:49 05/23/24 12:49 05/23/24 12:00 05/23/24 12:49 05/23/24 12:00 05/23/24 12:49 FiO2 50 05/23/24 10:54 Narrative Exam General: AO x 3, conversational Eyes: Pupils reactive to light. Ears: No visible ear discharge. Nose: No visible nasal discharge. Mouth/Throat: moist mucous membranes, no redness, no lesions. Neck: Neck supple, non-tender, no cervical lymphadenopathy. Lungs: B/L crackles, No accessory muscle use. Currently on oxy mask. Cardio: Normal S1/S2, regular rhythm, no murmurs, no JVD Abdomen: Soft, non-tender, no palpable masses. Extremities: Symmetrical, no significant deformities, 1+ peripheral edema, non- tender, peripheral pulses presents. Skin: No rashes, no lesions, warm to touch. Neuro: Alert and oriented x3, no gross neurological deficit, and patient able to move all 4 extremities. Objective Labs 05/23/24 05:07 05/23/24 05:07 Labs: Laboratory Results - last 24 hr 05/21/24 05/22/24 05/22/24 23:10 06:28 14:55 WBC RBC Hgb Hct MCV MCH MCHC RDW Std Deviation Plt Count Neut % (Auto) Lymph % (Auto) [place] % (Auto) Eos % (Auto) Baso % (Auto) Neut # (Auto) Lymph # (Auto) [place] # (Auto) Eos # (Auto) Baso # (Auto) Immature Gran # (Auto) Absolute Nucleated RBC Immature Gran % Nucleated RBC % PT INR APTT Sodium 137 Potassium 3.5 D Chloride 99 Carbon Dioxide 27.6 Anion Gap 10 BUN 51 H Creatinine 2.7 H Estim Creat Clear Calc 33.9 L eGFR 27 L BUN/Creatinine Ratio 19 Glucose 106 Calculated Osmolality 287 Calcium 8.0 L Corrected Calcium 8.8 Phosphorus Magnesium Total Bilirubin 4.3 H AST 170 H ALT 129 H Alkaline Phosphatase 73 Total Protein 6.0 Albumin 3.0 L Globulin 3.0 Albumin/Globulin Ratio 1.0 L Random Vancomycin Syphilis Serology Coccidioides IgM Ab Negative HIV 1&2 Antibody Rapid Non-Reactive 05/22/24 05/23/24 22:12 05:07 WBC 11.4 H RBC 4.26 L Hgb 13.6 Hct 38.9 L MCV 91 MCH 31.9 MCHC 35.0 RDW Std Deviation 47.8 H Plt Count 170 Neut % (Auto) 86 H Lymph % (Auto) 9 L [place] % (Auto) 4 Eos % (Auto) 0 Baso % (Auto) 0 Neut # (Auto) 9.8 H Lymph # (Auto) 1.1 [place] # (Auto) 0.5 Eos # (Auto) 0.0 Baso # (Auto) 0.0 Immature Gran # (Auto) 0.07 H Absolute Nucleated RBC 0.00 Immature Gran % 1 H Nucleated RBC % 0 PT 12.5 H D INR 1.2 APTT 43.9 H 53.9 H D Sodium 142 Potassium 3.0 L D Chloride 102 Carbon Dioxide 28.4 Anion Gap 12 BUN 59 H Creatinine 2.6 H Estim Creat Clear Calc 35.2 L eGFR 28 L BUN/Creatinine Ratio 23 H Glucose 97 Calculated Osmolality 299 H Calcium 8.4 Corrected Calcium 9.2 Phosphorus 3.8 Magnesium 2.3 Total Bilirubin 3.6 H D AST 175 H ALT 133 H Alkaline Phosphatase 72 Total Protein 6.2 Albumin 3.0 L Globulin 3.2 Albumin/Globulin Ratio 0.9 L Random Vancomycin Cancelled Syphilis Serology Nonreactive Coccidioides IgM Ab HIV 1&2 Antibody Rapid ABG Interpretation ABG results: 05/20/24 05/21/24 05/22/24 17:52 04:45 00:39 ABG pH 7.36 7.42 7.53 H D ABG pCO2 33 44 D 38 ABG pO2 375 H 107 D 43 L* D ABG HCO3 19 L 29 H 31 H ABG O2 Saturation 101 H 98 80 L ABG Base Excess -6 L 3 8 H 05/22/24 00:56 ABG pH 7.50 H ABG pCO2 40 ABG pO2 64 L D ABG HCO3 31 H ABG O2 Saturation 93 ABG Base Excess 7 H Quality Measures Quality Measures none Assessment & Plan Assessment Current Active Medications: Generic Name Dose Route Start Last Admin Trade Name Freq PRN Reason Stop Dose Admin Acetaminophen 650 mg 05/20/24 01:03 05/21/24 18:34 Acetaminophen 325 Mg Tablet PO 06/19/24 01:02 650 mg Q6H PRN Administration Pain 1-3 or Fever >100.3 Albuterol/Ipratropium 3 ml 05/21/24 13:00 05/23/24 12:47 Albuterol/Ipratropium (Duoneb) Rt Yuli 3 Ml Nebu INH 06/20/24 12:59 3 ml Q6HRRT MICAH Administration Bumetanide 2 mg 05/21/24 11:32 05/22/24 09:20 Bumetanide Inj 0.25 Mg/Ml Vial 4 Ml IVP 06/20/24 08:59 2 mg BID MICAH Administration Hydralazine HCl 10 mg 05/21/24 08:25 Hydralazine Inj 20 Mg/Ml Vial IV 06/20/24 08:24 Q4HR PRN SBP>180 Heparin Sodium/Dextrose 25,000 unit in 250 mls @ 9.968 mls/hr 05/22/24 15:30 05/23/24 06:59 Heparin In D5w Ivpb IV 05/24/24 15:29 14 units/kg/hr .Q24H MICAH 11.629 mls/hr Titration Protocol 12 UNITS/KG/HR Ampicillin Sodium/Sulbactam 100 mls @ 200 mls/hr 05/23/24 12:00 05/23/24 12:09 Sodium 3 gm/ Sodium Chloride IV 05/30/24 11:59 200 mls/hr Q6HR MICAH Administration Ondansetron HCl 4 mg 05/20/24 01:03 Ondansetron Inj 2 Mg/Ml Inj 2 Ml IV 06/19/24 01:02 Q6H PRN NAUSEA OR VOMITING Protocol Pantoprazole Sodium 40 mg 05/20/24 21:00 05/22/24 21:10 Pantoprazole Inj 40 Mg Vial IVP 06/19/24 20:59 40 mg HS MICAH Administration Pharmacy Consult 1 each 05/21/24 08:42 Pharmacy Renal Dose Adjustment 1 Ea XX 06/20/24 08:41 PRN PRN CONSULT Sennosides 1 tab 05/23/24 07:55 Senna Tablet PO 06/19/24 08:59 QDAY PRN constipation Protocol Plan Summary: Mr. De is a 54-year-old male with past medical history of hypertension, CKD stage IIIb, HFpEF, methamphetamine use was admitted for acute hypoxic respiratory failure due to CHF exacerbation and hypertensive emergency. Nephrology team consulted for LATASHA on CKD. #LATASHA on CKD stage IIIb BUN 54, creatinine 2.7, GFR 27 on 05/22 Per chart review patient's baseline GFR is 44. IV Bumex being held, renal function improved to BUN 59, creatinine 2.6, GFR 28 Patient has good urine output, produced about 2.25 L in the last 24 hours Plan: -Continue to hold diuretics -Renal function improved slightly -Discussed with patient about need of temporary dialysis if renal function declines, patient agrees -Strict WES's -Dose medication renally -Avoid nephrotoxic medications #Acute hypoxic encephalopathy, improving #Methamphetamine abuse disorder #Marijuana abuse disorder #Shock, resolved #NSTEMI #Hypertension #Acute exacerbation of HFpEF #Acute hypoxic respiratory failure 2/2 HFpEF exacerbation and aspiration PNA #Aspiration pneumonia #Cystic lung disease #Cirrhosis likely secondary to alcohol abuse in the past #Hyperbilirubinemia, #Mild transaminitis #High anion gap metabolic acidosis, resolved #Lactic acidosis, resolved Management as per primrary team Case discussed with Attending Dr. Hernandez. Otoniel Allen PGY1 Attending Provider Attestation/Addendum Patient seen and examined with resident physician Dr. Allen. Note reviewed, agree with findings and recommendations. Well-known to me from my CKD clinic. Patient admitted with acute hypoxic respiratory failure, electrolyte imbalance and LATASHA. Noted patient will be going for CTA today. Risk of contrast nephropathy is high. Family aware. Mom who has power of deputy county attorney agreed for dialysis if indicated. Will monitor renal function closely.
--- NOTE | 2024-05-23 13:55 | CHAP ---
10:30 AM Visited by spiritual care volunteer Provided prayer for Patient.
[2024-05-23 14:01] LABS: Cocci Serology, IgG Negative (Negative)
[2024-05-23 14:15] LABS: Partial Thromboplastin Time 57.5 Seconds (22.0-36.0)
--- NOTE | 2024-05-23 15:09 | PC.SS ---
Rounding note; Blood Cultures pending, patient is on Heparin drip.
[2024-05-23] MEDS: Heparin/D5w 25K 250 ML Ivpb 25,000 UNIT/250 ML BAG 11.629 UNIT IV (15:48)
[2024-05-23] MEDS: FUROSEMIDE INJ 10 MG/ML VIAL 2 ML 20 MG IVP (18:21)
[2024-05-23 19:12] LABS: Base Excess 8 (-3-3); HCO3 30 mEq/L (20-26); Inspired Oxygen, FIO2 45 %; O2 Saturation 89 % (91-98); PCO2 34 mmHg (32.0-48.0); pH, Arterial 7.55 (7.35-7.45)
[2024-05-23 19:14] LABS: Allen Test Not Performed; PO2 53 mmHg (83-108); Puncture Site Site Not Noted
[2024-05-23] MEDS: PANTOPRAZOLE INJ 40 MG VIAL IVP (20:08)
[2024-05-23] MEDS: AMOXICILLIN/POT CLAV 500 MG TABLET PO (20:08)
[2024-05-23 22:16] LABS: Partial Thromboplastin Time 58.8 Seconds (22.0-36.0)
[2024-05-24] VITALS (21 sets, daily range): BP systolic 124–155; BP diastolic 78–109; PULSE 66–81; RESP 14–34; TEMP 36.1–36.2; O2SAT 91–98; BMI 25.3
[2024-05-24] MEDS: ALBUTEROL/IPRATROPIUM (Duoneb) RT SOL 3 ML NEBU INH ×3 (00:31→13:11)
[2024-05-24] MEDS: AMOXICILLIN/POT CLAV 500 MG TABLET PO ×3 (05:09→21:58)
[2024-05-24 06:02] LABS: Basophils % (Auto) 0 % (0-2.5); Eosinophils % (Auto) 0 % (0-10); Hemoglobin 13.3 g/dL (13.5-16.0); Immature Granulocytes % (Auto) 1 % (0-0); Immature Granulocytes Auto 0.04 Thou/mm3 (0.00-0.00); Lymphocytes # (Auto) 1.4 Thou/mm3 (1.0-4.8); Lymphocytes % (Auto) 24 % (10-50); Mean Corpuscular HGB Conc 35.9 g/dl (31.0-37.0); Mean Corpuscular Volume 89 fL (80-100); Monocytes # (Auto) 0.4 Thou/mm3 (0.0-0.8); Monocytes % (Auto) 7 % (0-12); Neutrophils % (Auto) 68 % (37-80); Nucleated Red Blood Cell % 0 /100 WBC (0); Platelet Count 127 Thou/mm3 (140-440); RDW Standard Deviation 46.1 fL (35.1-43.9); Red Blood Count 4.16 Miln/mm3 (4.50-5.90); White Blood Count 5.8 Thou/mm3 (3.8-10.6)
[2024-05-24 06:25] LABS: Alanine Aminotransferase 130 U/L (10-49); Albumin, Serum 3.3 gm/dL (3.5-5.0); Alkaline Phosphatase 73 U/L (46-116); Anion Gap 11 (7-16); Aspartate Amino Transferase 161 U/L (0-34); BUN/Creatinine Ratio 23 Ratio (12-20); Bilirubin,Total 3.1 mg/dL (0.3-1.2); Blood Urea Nitrogen 51 mg/dL (9-23); Calcium (Corrected) 8.6 mg/dL (8.5-10.1); Carbon Dioxide 26.3 mMol/L (20.0-31.0); Chloride 97 mMol/L (98-107); Creatinine (Component) 2.2 mg/dL (0.6-1.3); Estimated Creatinine Clearance 41.6 mL/min (>60); Globulin 3.2 gm/dL (2.3-3.5); Glucose 87 mg/dL (74-106); Magnesium 2.3 mg/dL (1.6-2.6); Osmolality,Calculated 280 (275-295); Phosphorous 1.8 mg/dL (2.4-5.1); Sodium 134 mMol/L (136-145); Total Protein 6.5 gm/dL (5.7-8.2); eGFR 35 See Note
[2024-05-24 06:28] LABS: INR 1.1 (0.9-1.3); Partial Thromboplastin Time 53.5 Seconds (22.0-36.0); Prothrombin Time 12.3 Seconds (9.0-12.2)
--- NOTE | 2024-05-24 07:32 | XR_ITS ---
Examination: CTA chest, with intravenous contrast. CTA abdomen, with intravenous contrast. CTA pelvis, with intravenous contrast. 2-D sagittal and coronal reconstructions. 3-D reconstructions. Date and time of exam: May 24, 2024 at 1341 hours INDICATIONS: Aneurysm dilatation descending thoracic aorta with partially visualized dissection on CT chest May 22, 2024, chest pain CTDI vol (mgy) 24.8 DLP (MGycm) 794 Technique: Multiple CTA images, 2.0 mm slice thickness, obtained chest, abdomen, pelvis, with the high-resolution 64 slice scanner. 80 cc Isovue-300 is administered intravenously. Sagittal and coronal 2-D reconstructions are obtained. 3-D reconstructions, angiographic images are obtained. 3-D postprocessing, including vascular maximum intensity projections. Low dose protocols were performed. One or more of the following dose reduction techniques were used; automated exposure control, adjustment of the mA and/or KV according to patient size, use of iterative reconstruction technique. Findings: Moderate enlargement cardiac contour AP dimension ascending thoracic aorta 3.0 cm No pulmonary artery emboli [place] type B aortic dissection, beginning distal to the left subclavian artery, beginning axial image 65 with a double-lumen, the dissection appears to end before the origin of the celiac and superior mesenteric axes The maximum transverse dimension of the descending thoracic aorta is approximately 3.9 cm No infarction involving the liver spleen or kidneys noted Atelectasis and/or pneumonia left base Liver is irregular in contour Contracted gallbladder No pancreatic mass Enlarged right psoas muscle with necrotic center, axial image 281, consider hemorrhage in the psoas muscle Mild ascites No bowel obstruction Abundant stool in the rectum Diffuse significant osteopenia IMPRESSION: [place] type B aortic dissection beginning distal to the left subclavian artery and extending distally into the upper abdomen but ending before the origin of the celiac superior mesenteric axes No abdominal infarction noted Primary hepatocellular disease with mild ascites Enlarged right psoas muscle with necrotic center,, consider hemorrhage in the sella as muscle, clinical correlation advised
[2024-05-24] MEDS: NAPH,KPH MBDB 1 PACKET (1.5 GM) PO (08:53)
[2024-05-24] MEDS: POTASSIUM CHL 10 mEq IVPB 10 MEQ/100 ML BAG 75 MEQ IV ×2 (08:54→10:32)
[2024-05-24] MEDS: ACETAMINOPHEN 325 MG TABLET 650 MG PO ×3 (09:09→23:11)
--- NOTE | 2024-05-24 09:20 | PD.RESPRO ---
Documentation for date of: 05/24/24 Subjective Subjective Interval history: Mr. De is a 54-year-old male with past medical history of hypertension, CKD stage IIIb, HFpEF, methamphetamine use was admitted for acute hypoxic respiratory failure due to CHF exacerbation and hypertensive emergency. Patient was upgraded to ICU due to altered mental status due to hypotension and hypoxia. Therefore patient ended up getting intubated for airway protection and started on Levophed during ICU course. Patient was given reversal for calcium channel prasanna with calcium chloride x 3 after which patient's blood pressure showed improvement. 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 contract designer today 05/22/24 patient had a stroke alert called for change in mental status GCS was 12, teleneuro assessed the patient and recommended further investigations. Patient's head and neck CTA was significant for descending thoracic aorta aneurysmal dilation with extensive thrombus and radiology recommended CTA chest post IV contrast follow-up. Patient is currently on Bumex 2 mg IV twice daily for IV diuresis, Zosyn for pneumonia coverage, heparin GGT due to concern of NSTEMI, Coreg, Flomax and DuoNeb treatments. Nephrology team consulted as patient has LATASHA on CKD with BUN 54, creatinine 2.7, GFR 27 per chart review patient's baseline GFR is 44. Patient seen at bedside, patient is arousable to sternal rub, unable to answer questions, not conversational, patient's mother at bedside case discussed extensively with her. Patient is currently on IV Bumex, will be given IV contrast for CTA. Discussed with patient's mother at bedside that if patient's renal function continues to decline patient might need dialysis temporarily, patient's mother is the primary decision maker and agrees with dialysis if needed. 05/23/2024: Patient seen at bedside today, patient is alert oriented x 3, MRI brain was positive for multiple tiny embolic type infarcts left temporal lobe bilateral parietal lobe, on examination gross movement is noted in all 4 limbs, patient's renal function improved slightly GFR 28, creatinine 2.6, BUN 59 compared to yesterday, IV diuretics were held. Patient is still pending CTA chest, discussed with family at bedside, agrees with temporary dialysis if needed. Would recommend to hold diuretics currently as patient's swelling has improved, saturating well on oxy mask 3-5 L. Will continue to monitor patient's renal function. 05/24/2024: Patient seen at bedside on med telemetry today, alert oriented x 3. Patient is scheduled for CTA today, otherwise patient's renal function has improved BUN 51, creatinine 2.2, GFR 35, IV diuretics are being held currently. Bilateral pitting edema noted, more severe than yesterday, consider resuming diuretics. Continues to be on high flow oxygen 20 L. Otherwise patient has no complaints, will continue to monitor patient's renal function post CTA, family and patient agrees with dialysis if needed. Exam Vital Signs Temp Pulse Resp BP Pulse Ox O2 Del Method O2 Flow Rate 97.0 F 72 22 H 125/85 H 98 High Flow Nasal Cannula 20 05/24/24 12:00 05/24/24 13:14 05/24/24 13:14 05/24/24 12:00 05/24/24 13:14 05/24/24 12:00 05/24/24 13:14 FiO2 40 05/24/24 13:14 Narrative Exam General: AO x 3, conversational Eyes: Pupils reactive to light. Ears: No visible ear discharge. Nose: No visible nasal discharge. Mouth/Throat: moist mucous membranes, no redness, no lesions. Neck: Neck supple, non-tender, no cervical lymphadenopathy. Lungs: B/L crackles, No accessory muscle use. Currently on oxy mask. Cardio: Normal S1/S2, regular rhythm, no murmurs, no JVD Abdomen: Soft, non-tender, no palpable masses. Extremities: Symmetrical, no significant deformities, 2+ peripheral edema, non-tender, peripheral pulses presents. Skin: No rashes, no lesions, warm to touch. Neuro: Alert and oriented x3, no gross neurological deficit, and patient able to move all 4 extremities. Objective Labs 05/24/24 05:33 05/24/24 18:08 Labs: Laboratory Results - last 24 hr 05/23/24 05/23/24 05/24/24 19:04 20:33 05:33 WBC 5.8 D RBC 4.16 L Hgb 13.3 L Hct 37.0 L MCV 89 MCH 32.0 MCHC 35.9 RDW Std Deviation 46.1 H Plt Count 127 L D Neut % (Auto) 68 Lymph % (Auto) 24 [place] % (Auto) 7 Eos % (Auto) 0 Baso % (Auto) 0 Neut # (Auto) 4.0 Lymph # (Auto) 1.4 [place] # (Auto) 0.4 Eos # (Auto) 0.0 Baso # (Auto) 0.0 Immature Gran # (Auto) 0.04 H Absolute Nucleated RBC 0.00 Immature Gran % 1 H Nucleated RBC % 0 PT 12.3 H INR 1.1 APTT 58.8 H 53.5 H Puncture Site Site Not Noted ABG pH 7.55 H ABG pCO2 34 ABG pO2 53 L* ABG HCO3 30 H ABG O2 Saturation 89 L ABG Base Excess 8 H FiO2 45 Sodium 134 L Potassium 3.0 L Chloride 97 L Carbon Dioxide 26.3 Anion Gap 11 BUN 51 H Creatinine 2.2 H Estim Creat Clear Calc 41.6 L eGFR 35 L BUN/Creatinine Ratio 23 H Glucose 87 Calculated Osmolality 280 Calcium 8.0 L Corrected Calcium 8.6 Phosphorus 1.8 L Magnesium 2.3 Total Bilirubin 3.1 H D AST 161 H ALT 130 H Alkaline Phosphatase 73 Total Protein 6.5 Albumin 3.3 L Globulin 3.2 Albumin/Globulin Ratio 1.0 L ABG Interpretation ABG results: 05/20/24 05/21/24 05/22/24 17:52 04:45 00:39 ABG pH 7.36 7.42 7.53 H D ABG pCO2 33 44 D 38 ABG pO2 375 H 107 D 43 L* D ABG HCO3 19 L 29 H 31 H ABG O2 Saturation 101 H 98 80 L ABG Base Excess -6 L 3 8 H 05/22/24 05/23/24 00:56 19:04 ABG pH 7.50 H 7.55 H ABG pCO2 40 34 ABG pO2 64 L D 53 L* ABG HCO3 31 H 30 H ABG O2 Saturation 93 89 L ABG Base Excess 7 H 8 H Quality Measures Quality Measures none Assessment & Plan Assessment Current Active Medications: Generic Name Dose Route Start Last Admin Trade Name Freq PRN Reason Stop Dose Admin Acetaminophen 650 mg 05/20/24 01:03 05/24/24 09:09 Acetaminophen 325 Mg Tablet PO 06/19/24 01:02 650 mg Q6H PRN Administration Pain 1-3 or Fever >100.3 Albuterol/Ipratropium 3 ml 05/21/24 13:00 05/24/24 13:11 Albuterol/Ipratropium (Duoneb) Rt Yuli 3 Ml Nebu INH 06/20/24 12:59 3 ml Q6HRRT MICAH Administration Amoxicillin/Clavulanate Potassium 500 mg 05/23/24 22:00 05/24/24 05:09 Amoxicillin/Pot Clav 500 Mg Tablet PO 05/30/24 21:59 500 mg TID MICAH Administration Bumetanide 1 mg 05/24/24 13:15 Bumetanide Inj 0.25 Mg/Ml Vial 4 Ml IVP 06/23/24 13:14 BID MICAH Hydralazine HCl 10 mg 05/21/24 08:25 Hydralazine Inj 20 Mg/Ml Vial IV 06/20/24 08:24 Q4HR PRN SBP>180 Heparin Sodium/Dextrose 25,000 unit in 250 mls @ 9.968 mls/hr 05/22/24 15:30 05/23/24 15:48 Heparin In D5w Ivpb IV 05/24/24 15:29 14 units/kg/hr .Q24H MICAH 11.629 mls/hr Administration Protocol 12 UNITS/KG/HR Ondansetron HCl 4 mg 05/20/24 01:03 Ondansetron Inj 2 Mg/Ml Inj 2 Ml IV 06/19/24 01:02 Q6H PRN NAUSEA OR VOMITING Protocol Pantoprazole Sodium 40 mg 05/20/24 21:00 05/23/24 20:08 Pantoprazole Inj 40 Mg Vial IVP 06/19/24 20:59 40 mg HS MICAH Administration Pharmacy Consult 1 each 05/21/24 08:42 Pharmacy Renal Dose Adjustment 1 Ea XX 06/20/24 08:41 PRN PRN CONSULT Sennosides 1 tab 05/23/24 07:55 Senna Tablet PO 06/19/24 08:59 QDAY PRN constipation Protocol Plan Summary: Mr. De is a 54-year-old male with past medical history of hypertension, CKD stage IIIb, HFpEF, methamphetamine use was admitted for acute hypoxic respiratory failure due to CHF exacerbation and hypertensive emergency. Nephrology team consulted for LATASHA on CKD. #LATASHA on CKD stage IIIb BUN 54, creatinine 2.7, GFR 27 on 05/22 Per chart review patient's baseline GFR is 44. IV Bumex being held, renal function improved to BUN 51, creatinine 2.2, GFR 35 Patient has good urine output, produced about 2.5 L in the last 24 hours Plan: -Renal function improved slightly, pending CTA -Discussed with patient about need of temporary dialysis if renal function declines, patient agrees -Strict I&O's -Dose medication renally -Avoid nephrotoxic medications -Bilateral pitting edema noted, consider resuming diuretics per contract driver #Acute hypoxic encephalopathy, improving #Methamphetamine abuse disorder #Marijuana abuse disorder #Shock, resolved #NSTEMI #Hypertension #Acute exacerbation of HFpEF #Acute hypoxic respiratory failure 2/2 HFpEF exacerbation and aspiration PNA #Aspiration pneumonia #Cystic lung 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 Hernandez. Otoniel Allen PGY1 Attending Provider Attestation/Addendum Patient seen and examined with resident physician Dr. Allen. Note reviewed, agree with findings and recommendations. This morning patient had CTA with contrast. CTA chest/abdomen IMPRESSION: [place] type B aortic dissection beginning distal to the left subclavian artery and extending distally into the upper abdomen but ending before the origin of the celiac superior mesenteric axes No abdominal infarction noted Primary hepatocellular disease with mild ascites Enlarged right psoas muscle with necrotic center,, consider hemorrhage in the sella as muscle, clinical correlation advised After the results-heparin drip was discontinued. Plans were made for transfer. Apparently primary team has been talking to vascular surgery. Kidney function has been stable. Plan of care discussed with his ashleigh at bedside. Patient continues to have some shortness of breath. Will resume diuretics . Spoke to Dr. Matute.
--- NOTE | 2024-05-24 09:42 | ESPR_ITS ---
<Statement entered by Bailey Paulino MD - 05/24/24 20:41> Please see event note for details regarding transfer attempt. #Kimberly Type B Aortic Dissection - seen on CTA chest/abdomen/pelvis. Start beta prasanna to keep SBP 100-120 and HR < 80. Transfer request in progress, see event note. #Troponinemia - secondary to acute decompensated heart failure and thrombus. Completed 48 hours of heparin. Will hold off further heparin due to suspicion of hemorrhage in the psoas muscle seen on CTA imaging. #Multiple embolic infarcts - neurology following. Cardiology deferred INESSA as patient not stable enough for INESSA at this time. #Decompensated heart failure with RH strain - restart Bumex today #Acute hypoxic respiratory failure secondary to decompensated HF - continue HFNC, wean as tolerated. Treat underlying HF. #LATASHA on CKD - nephrology following. Restarted Bumex today, patient also received contrast today. Will reassess kidney function tomorrow, may need Bumex holiday if kidney function woresn. Patient and family aware that dialysis is a possibility. Renal dose medications, avoid nephrotoxins. Bailey Paulino MD PGY-2 Documentation for date of: 05/24/24 Subjective Subjective Interval history: Patient is a 54-year-old male with a past medical history of hypertension, chronic kidney disease stage III, history of congestive heart failure HFpEF- diastolic dysfunction stage I 50 to 55% (03/15/2023), and history of poly- substance use disorder (meth/THC) who was initially admitted for acute hypoxic respiratory failure and CHF exacerbation, then upgraded to ICU and downgraded on 05/22/2024. No overnight events reported for patient. Patient denied chest pain. Denied dyspnea. Mild pain at lower extremity near tibial muscle from December 2023 that occurred outside. Patient currently still on high flow. Oxygen saturation thas been greater spO2 92% with an FiO2 of 35-40 and flow rate of 20. Today, CTA returned showing an Kimberly type B aortic dissection beginning at the distal subclavian artery and extending distally in to the upper abdomen. Right psoass muscle with possible hemorrhage. Exam Vital Signs Temp Pulse Resp BP Pulse Ox O2 Del Method O2 Flow Rate 97.1 F 75 14 155/89 H 96 High Flow Nasal Cannula 05/24/24 04:00 05/24/24 07:21 05/24/24 07:21 05/24/24 04:00 05/24/24 07:21 05/24/24 04:00 05/24/24 07:21 FiO2 35 05/24/24 07:21 Narrative Exam General Appearance: Alert & Oriented X3, well-nourished male who is lying in bed in no acute distress. Mild tenderness at left hip region. Tenderness near mid- tibila shaft. HEENT: Skull symmetrical and atraumatic. Conjunctivae pin and moist. Pupils equal, round, reactive to light and accommodation (PERRL). External ear without lesion or discharge. Straight, nares patient, mucosa pink, no discharge. Cardio: Normal Rate and Rhythm with S1 and S2 heart sounds. No bruits on carotid auscultation. Peripheral edema improved, +2. Lungs: Symmetric expansion. Chest and back non-tender. Breath sounds vesicular with improved crackles. Abdomen: Non-tender, Non-distended, Normal Reactive Bowel Sounds Neuro: YesAlert, Yes cooperative, Yes oriented to person, Yes place, and Yes time. Speech clear. CN grossly intact. Upper motor strength 5/5 and Lower motor strength 4/5. Sensation intact. Objective Labs 05/25/24 04:19 05/25/24 04:19 Labs: Laboratory Results - last 24 hr 05/21/24 05/23/24 05/23/24 23:10 13:30 19:04 WBC RBC Hgb Hct MCV MCH MCHC RDW Std Deviation Plt Count Neut % (Auto) Lymph % (Auto) Moore % (Auto) Eos % (Auto) Baso % (Auto) Neut # (Auto) Lymph # (Auto) Moore # (Auto) Eos # (Auto) Baso # (Auto) Immature Gran # (Auto) Absolute Nucleated RBC Immature Gran % Nucleated RBC % PT INR APTT 57.5 H Puncture Site Site Not Noted ABG pH 7.55 H ABG pCO2 34 ABG pO2 53 L* ABG HCO3 30 H ABG O2 Saturation 89 L ABG Base Excess 8 H FiO2 45 Sodium Potassium Chloride Carbon Dioxide Anion Gap BUN Creatinine Estim Creat Clear Calc eGFR BUN/Creatinine Ratio Glucose Calculated Osmolality Calcium Corrected Calcium Phosphorus Magnesium Total Bilirubin AST ALT Alkaline Phosphatase Total Protein Albumin Globulin Albumin/Globulin Ratio Coccidioides IgG Ab Negative 05/23/24 05/24/24 20:33 05:33 WBC 5.8 D RBC 4.16 L Hgb 13.3 L Hct 37.0 L MCV 89 MCH 32.0 MCHC 35.9 RDW Std Deviation 46.1 H Plt Count 127 L D Neut % (Auto) 68 Lymph % (Auto) 24 Moore % (Auto) 7 Eos % (Auto) 0 Baso % (Auto) 0 Neut # (Auto) 4.0 Lymph # (Auto) 1.4 Moore # (Auto) 0.4 Eos # (Auto) 0.0 Baso # (Auto) 0.0 Immature Gran # (Auto) 0.04 H Absolute Nucleated RBC 0.00 Immature Gran % 1 H Nucleated RBC % 0 PT 12.3 H INR 1.1 APTT 58.8 H 53.5 H Puncture Site ABG pH ABG pCO2 ABG pO2 ABG HCO3 ABG O2 Saturation ABG Base Excess FiO2 Sodium 134 L Potassium 3.0 L Chloride 97 L Carbon Dioxide 26.3 Anion Gap 11 BUN 51 H Creatinine 2.2 H Estim Creat Clear Calc 41.6 L eGFR 35 L BUN/Creatinine Ratio 23 H Glucose 87 Calculated Osmolality 280 Calcium 8.0 L Corrected Calcium 8.6 Phosphorus 1.8 L Magnesium 2.3 Total Bilirubin 3.1 H D AST 161 H ALT 130 H Alkaline Phosphatase 73 Total Protein 6.5 Albumin 3.3 L Globulin 3.2 Albumin/Globulin Ratio 1.0 L Coccidioides IgG Ab ABG Interpretation ABG results: 05/20/24 05/21/24 05/22/24 17:52 04:45 00:39 ABG pH 7.36 7.42 7.53 H D ABG pCO2 33 44 D 38 ABG pO2 375 H 107 D 43 L* D ABG HCO3 19 L 29 H 31 H ABG O2 Saturation 101 H 98 80 L ABG Base Excess -6 L 3 8 H 05/22/24 05/23/24 00:56 19:04 ABG pH 7.50 H 7.55 H ABG pCO2 40 34 ABG pO2 64 L D 53 L* ABG HCO3 31 H 30 H ABG O2 Saturation 93 89 L ABG Base Excess 7 H 8 H Quality Measures Quality Measures none Assessment & Plan Assessment Current Active Medications: Generic Name Dose Route Start Last Admin Trade Name Freq PRN Reason Stop Dose Admin Acetaminophen 650 mg 05/20/24 01:03 05/24/24 09:09 Acetaminophen 325 Mg Tablet PO 06/19/24 01:02 650 mg Q6H PRN Administration Pain 1-3 or Fever >100.3 Albuterol/Ipratropium 3 ml 05/21/24 13:00 05/24/24 07:21 Albuterol/Ipratropium (Duoneb) Rt Yuli 3 Ml Nebu INH 06/20/24 12:59 3 ml Q6HRRT MICAH Administration Amoxicillin/Clavulanate Potassium 500 mg 05/23/24 22:00 05/24/24 05:09 Amoxicillin/Pot Clav 500 Mg Tablet PO 05/30/24 21:59 500 mg TID MICAH Administration Bumetanide 2 mg 05/21/24 11:32 05/22/24 09:20 Bumetanide Inj 0.25 Mg/Ml Vial 4 Ml IVP 06/20/24 08:59 2 mg BID MICAH Administration Hydralazine HCl 10 mg 05/21/24 08:25 Hydralazine Inj 20 Mg/Ml Vial IV 06/20/24 08:24 Q4HR PRN SBP>180 Heparin Sodium/Dextrose 25,000 unit in 250 mls @ 9.968 mls/hr 05/22/24 15:30 05/23/24 15:48 Heparin In D5w Ivpb IV 05/24/24 15:29 14 units/kg/hr .Q24H MICAH 11.629 mls/hr Administration Protocol 12 UNITS/KG/HR Potassium Chloride 10 meq in 100 mls @ 100 mls/hr 05/24/24 07:52 05/24/24 08:54 Kcl Ivpb IV 05/24/24 13:51 75 mls/hr Q1H MICAH Administration Ondansetron HCl 4 mg 05/20/24 01:03 Ondansetron Inj 2 Mg/Ml Inj 2 Ml IV 06/19/24 01:02 Q6H PRN NAUSEA OR VOMITING Protocol Pantoprazole Sodium 40 mg 05/20/24 21:00 05/23/24 20:08 Pantoprazole Inj 40 Mg Vial IVP 06/19/24 20:59 40 mg HS MICAH Administration Pharmacy Consult 1 each 05/21/24 08:42 Pharmacy Renal Dose Adjustment 1 Ea XX 06/20/24 08:41 PRN PRN CONSULT Sennosides 1 tab 05/23/24 07:55 Senna Tablet PO 06/19/24 08:59 QDAY PRN constipation Protocol Plan Patient is a 54-year-old male with a past medical history of hypertension, chronic kidney disease stage III, history of congestive heart failure HFpEF- diastolic dysfunction stage I 50 to 55% (03/15/2023), and history of poly- substance use disorder (meth/THC) who was initially admitted for acute hypoxic respiratory failure and CHF exacerbation, then upgraded to ICU and downgraded on 05/22/2024. #Aortic Dissection, Type B Kimberly #Acute hypoxic respiratory Failure, improving #Pneumonia, improved #Aortic thrombus, less likely #Obstructive Shock (?) #Sepsis, secondary to pneumonia with end organ failure, Resolved. Etiology: Acute hypoxic respiratory failure is likely multi-factorial but CHF exacerbation likely contributing to hypoxemia on addmission given elevated BNP and chest xray on admission showing pulmonary vascular congestion. Sepsis secondary to pneumonia likely contributing to increased work of breathing given update Cxr showing bilateral pneumonia. Consider aspiration pneumonia and increasing Zosyn dosage. Sepsis noted overnight, with a Fever of 101, RR 23, with source of infection as noted in Cxr showing pneumonia. Although Well's criteria on admission was 0, concern for PE increased given possible thrombus noted on CTA neck. Current Well's criteria 3. On heparin drip for thrombus. Thrombus could also be causing respiratory failure leading to possible obstructive shock previous to ICU admission. 05/24/2024-CTA obtained showing aortic dissection, Sean type B. Patients SBP today between 120-140. Currently working on transferring patient. [facility] rejected patient as vascular surgery stated patient is hemodynamically stable. Plan -Coreg 6.25 mg PO BIDWM -Labetalol IV 10 mg IV Q4HR PRN, for SBP >130 -Goal Systolic blood pressure at or near <120 with MAP >70 -If blood pressure remains high and HR <60, consult ICU-->consider nitroprusside -Holding Heparin, given possible hemorrhage into Psoas muscle -Type and screen placed. -Zosyn 3.375 g (05/22/2024-05/23/2024)-->Augmentin 500 BID (05/23--05/26) -blood culture-NO growth after 48 Hours. -Continue highflow support, until able to titrate down on FiO2 to reach [place]. #CHF Exacerbation, imroving #CHF, HFpEF systolic dysfunction with massively dilated right atrium EF 50% #Pulmonary HTN #Cor Pulmonale #Hypertension #NSTEMI I vs II (?) #Hypertensive Emergency, Resolved #Cardiogenic Shock, Resolved. Etiology: Patient has an extensive history of CHF, systolic dysfunciton with an EF of 50% and elevated pulmonary artery pressure with atrial dilation. In the setting of methamphetamine use, this is likely the cause as both are highly associated with atrial dilation and contributing to CHF-->consider Cor Pulmonale as left ventricle appears normal size and EKG noted right ventricle hypertrophy. On admission, patient likely suffered cardiogenic show from possible vasopasm from meth us and multiple anti-hypertensive medication. Now presenting with troponemia with no ST elevation and likely NSTEMI type II but type I can not be rule out. Diagnostics: Echo: Systolic Dysfunciton, massively dilated right atrium, EF 50%, RVSP 60 mm Hg (moderate severe pulmonary hypertension) Troponin (05/22/2024) 2.926 and 2.721 EKG (05/21/2024): Sinus Tachycardia Current Output 1506; Weight 84.22 kg --> (05/24/2024) Output 160, spoke to nurse, patient has been having urine output. Wt 84.822 Kg Plan -Consider bladder US if need be overnight -Continue Bumex 1 mg IVP BID -Daily weight checks -Fluid Restricted -Diet, Na restricted -Keep >4 and Mg >2 -Cardiology Consulted, Dr. Pham, appreciate recommendations #Acute Metabolic Encepholopathy, improving #Hypoxemia vs Sepsis Etiology: Likely secondary to hypoxemia given CHF exacerbation on admission requiring intubation prior to being on floors and ischemic stroke as noted on MRI brain DDx: Poly-substance Use disorder secondary to methamphetamine as withdraw can present as hyperisonia or insominia vs Sepsis, improved -from CAP/Aspiration Diagnostics: -Head/Neck CTA (05/22/2024): Partially visualized descending thoracic aortic aneurysmal dilation w/ extensive thrombus, CTA recommend . NO significan neck arterial stenoses. No cerebral large vessel occlusions or thrombus. -MRI Brain (05/22/2024): Miltiple tiny embolic type infartcs left temporal lobe bilateral parietal lobes as above -Lipid Panetl Triglycerides 71, Cholesterol 92, LDL 49, HDL 29, -TSH 2.39 -Utox Positive THC and Meth -Chest x-ray: Mild Bibasilar Pneumonia -CT Head: negative for hemorrhage or mass effect. ASCVD 3.6% 10 year cardiovascular risk, consider moderate to high intensity, currently no Atorvastatin to be added Plan: -Heparin Drip, stopped given risk of bleeding into the Psoas muscle, possible hemorrhage -PT and PTT 05/24/2024 -Hypercoaguable panel by Dr. Olivares -LEONARDO placed by ICU -Avoid Hyperthermia and keep Euglycemic -Consider INESSA, currently no plans for INESSA -Speech Evaluation: Diet Renal- Dysphagia 3 -Physical Therapy:Home with Oxygen & Home Health -Out of Permissive HTN -consider bupropion if withdraw symptoms are present -Neurology Consulted, appreciate recommendations, neurology #LATASHA on CKD III-->CKD III #hypokalemia Etiology: Patient has a past medical history of CHF with a BUN/Cr ratio of 19, thus maybe pre-renal given shock and CHF exacerbation, but worsening CKD likely given intrinsic failure. Initially patient was GFR of 31, now GFR worsening at 27, thus progressing towards end renal failure thus dialysis maybe a possibility. DDx: CKD secondary to Intrinsci renal failure from Meth use as it has been to lead to chronic kidney disease vs post renal obstruction given BPH Diagnostics: (05/22/2024) BUN 54 Cr 2.7 BUN/Cr 19, GFR 27-->(05/24/2024) BUN 51 Cr 2.2 BUN/Cr 23 GFR 35 Plan: -Pending Renal Panel -Continue to replete electrolytes in setting of bumex -Continue Bumex I mg IVP BID -Avoid nephrotoxins -renally dose medication -follow BUN & Cr -renal diet #Cirrhosis secondary to Alcohol Use #Hyperbilirubinemia #Mild Transamitis Etiolgoy: Given shock, during ICU admission, likely secondary to hepatic ischemia and complicated by CHF exacerbation causing cardio-hepatic damage. History of Alcohol use disorder likely contributing to cirrhosis. Less likely secondary to infectious cause as hepatitis is negative vs autoimmune condition. LEONARDO and GGT pending. Plan -GGT Pending -monitor AST/ALT -monitor total bili #BPH Plan -no acute intervention -holding Tamulosin Health Maintenance: Disp: Pt is currently admitted to floors for further management of acute hypoxic respiratory failure, awaiting possible transfer to [facility]. FEN: Renal Diet, Dysphagia 3 DVT: Holding Heparin, secondary to hemorrhage into psoas muscle Code: Full Code - The patient's plan was discussed with attending Dr. Matute and senior residents Dr. Jefferson Barros MD PGY1 Internal Medicine Attending Provider Attestation/Addendum I, Luana Matute DO, attest that I was physically present for the carbajal portions of the service and evaluated the patient with the resident and I reviewed and discussed the case with the resident and agree with the resident's findings and plans of care as documented above Patient seen and eval this a.m. He has no acute complaints at this time. Bilateral lower extremity edema appears to be worsened today. Patient was also placed on high flow nasal cannula overnight. Will give 1 dose of Bumex. Case was also discussed with nephrology. Okay to proceed with CTA with diluted contrast. Renal function appears to have slightly improved with a creatinine of 2.2. Family made aware of the risks of contrast, but are agreeable to further proceed with CTA. CTA was done and showed a Sean type B aortic dissection extending from the left subclavian to the celiac and superior mesenteric axis. There is also hemorrhage noted in the psoas muscle. Will hold off on heparin drip at this time due to bleeding. Transfer initiated for thoracic surgery evaluation. Blood pressure is well-controlled at this time. Will start carvedilol 3.125 mg p.o. twice daily and uptitrate as tolerated to maintain systolic blood pressure less than 120 and heart rate less than 60. Patient denies any active back pain throughout hospitalization. However he admitted to having fallen a few weeks prior to presentation at the [facility], which may have resulted in psoas hemorrhage.
--- NOTE | 2024-05-24 10:53 | PD.RESPRO ---
Documentation for date of: 05/24/24 Subjective Subjective Interval history: Patient was seen at bedside this morning. No overnight events. Patient still on high flow nasal cannula. Patient is AO x 3 and more awake and alert today. Still pending Chest CTA. Continue Heparin drip for total of 4 hours if okay with neurology Recommend to continue aspirin and statin. Patient had total balance of -1.6 L in the past 24 hours. Patient's kidney function seems stable with BUN 59 and creatinine 2.6, may need temporary dialysis. Potassium 3 and magnesium 2.3 today, recommend to keep potassium and magnesium above 4 and 2 to avoid any further arrhythmias. Patient had stroke alert called due to changes in mentation and brain MRI with MRA showed multiple tiny embolic infarcts of the left temporal lobe and bilateral parietal lobes. 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 Primary care team wanted patient to undergo INESSA due to an acute stroke and thrombus in the descending aorta, but at this time patient is stable hemodynamically and could possibly decline during the procedure. Will follow-up on neurology recommendations on anticoagulation. Echo on 05/20/2024 had the following findings Small LV size, moderate LVH with low normal ejection fraction at around 50%. Flattened interatrial septum in both systole and diastole indicating both RV pressure and volume overload. Severely dilated right ventricle with moderate RV systolic dysfunction and massively dilated right atrium Moderate to severe TR and estimated RVSP around 60 mmHg indicating moderate to severe pulmonary hypertension Trace MR and dilated IVC Exam Vital Signs Temp Pulse Resp BP Pulse Ox O2 Del Method O2 Flow Rate 96.9 F 74 19 147/95 H 92 L High Flow Nasal Cannula 20 05/24/24 08:00 05/24/24 08:00 05/24/24 08:00 05/24/24 08:00 05/24/24 08:00 05/24/24 08:00 05/24/24 08:00 FiO2 35 05/24/24 08:00 Narrative Exam General:AO x 3, more awake and alert, disheveled Eyes: PERRL, EOMI. icteric, vision grossly intact. Eyes bulging Ears: No ear pain, no ear discharge, Hearing grossly intact. Nose: No nasal discharge. Mouth/Throat: dry mucous membranes, no redness, no lesions. Neck: Neck supple, non-tender, no cervical lymphadenopathy. Lungs: Decreased in lower lobes, No accessory muscle use. Cardio: Normal S1/S2, regular rhythm, no murmurs, no JVD Abdomen: Soft, non-tender, no palpable masses, peristalsis present, no guarding or rebound. Extremities: Symmetrical, no significant deformities, 1+ peripheral edema , non-tender, peripheral pulses presents. Skin: No rashes, no lesions, warm to touch. Neuro: No focal neurological deficits. motor and sensory intact Objective Labs 05/24/24 05:33 05/24/24 18:08 Labs: Laboratory Results - last 24 hr 05/21/24 05/23/24 05/23/24 23:10 13:30 19:04 WBC RBC Hgb Hct MCV MCH MCHC RDW Std Deviation Plt Count Neut % (Auto) Lymph % (Auto) Elk % (Auto) Eos % (Auto) Baso % (Auto) Neut # (Auto) Lymph # (Auto) [place]k # (Auto) Eos # (Auto) Baso # (Auto) Immature Gran # (Auto) Absolute Nucleated RBC Immature Gran % Nucleated RBC % PT INR APTT 57.5 H Puncture Site Site Not Noted ABG pH 7.55 H ABG pCO2 34 ABG pO2 53 L* ABG HCO3 30 H ABG O2 Saturation 89 L ABG Base Excess 8 H FiO2 45 Sodium Potassium Chloride Carbon Dioxide Anion Gap BUN Creatinine Estim Creat Clear Calc eGFR BUN/Creatinine Ratio Glucose Calculated Osmolality Calcium Corrected Calcium Phosphorus Magnesium Total Bilirubin AST ALT Alkaline Phosphatase Total Protein Albumin Globulin Albumin/Globulin Ratio Coccidioides IgG Ab Negative 05/23/24 05/24/24 20:33 05:33 WBC 5.8 D RBC 4.16 L Hgb 13.3 L Hct 37.0 L MCV 89 MCH 32.0 MCHC 35.9 RDW Std Deviation 46.1 H Plt Count 127 L D Neut % (Auto) 68 Lymph % (Auto) 24 [place]k % (Auto) 7 Eos % (Auto) 0 Baso % (Auto) 0 Neut # (Auto) 4.0 Lymph # (Auto) 1.4 [place]k # (Auto) 0.4 Eos # (Auto) 0.0 Baso # (Auto) 0.0 Immature Gran # (Auto) 0.04 H Absolute Nucleated RBC 0.00 Immature Gran % 1 H Nucleated RBC % 0 PT 12.3 H INR 1.1 APTT 58.8 H 53.5 H Puncture Site ABG pH ABG pCO2 ABG pO2 ABG HCO3 ABG O2 Saturation ABG Base Excess FiO2 Sodium 134 L Potassium 3.0 L Chloride 97 L Carbon Dioxide 26.3 Anion Gap 11 BUN 51 H Creatinine 2.2 H Estim Creat Clear Calc 41.6 L eGFR 35 L BUN/Creatinine Ratio 23 H Glucose 87 Calculated Osmolality 280 Calcium 8.0 L Corrected Calcium 8.6 Phosphorus 1.8 L Magnesium 2.3 Total Bilirubin 3.1 H D AST 161 H ALT 130 H Alkaline Phosphatase 73 Total Protein 6.5 Albumin 3.3 L Globulin 3.2 Albumin/Globulin Ratio 1.0 L Coccidioides IgG Ab ABG Interpretation ABG results: 05/20/24 05/21/24 05/22/24 17:52 04:45 00:39 ABG pH 7.36 7.42 7.53 H D ABG pCO2 33 44 D 38 ABG pO2 375 H 107 D 43 L* D ABG HCO3 19 L 29 H 31 H ABG O2 Saturation 101 H 98 80 L ABG Base Excess -6 L 3 8 H 05/22/24 05/23/24 00:56 19:04 ABG pH 7.50 H 7.55 H ABG pCO2 40 34 ABG pO2 64 L D 53 L* ABG HCO3 31 H 30 H ABG O2 Saturation 93 89 L ABG Base Excess 7 H 8 H Quality Measures Quality Measures none Assessment & Plan Assessment Current Active Medications: Generic Name Dose Route Start Last Admin Trade Name Freq PRN Reason Stop Dose Admin Acetaminophen 650 mg 05/20/24 01:03 05/24/24 09:09 Acetaminophen 325 Mg Tablet PO 06/19/24 01:02 650 mg Q6H PRN Administration Pain 1-3 or Fever >100.3 Albuterol/Ipratropium 3 ml 05/21/24 13:00 05/24/24 07:21 Albuterol/Ipratropium (Duoneb) Rt Yuli 3 Ml Nebu INH 06/20/24 12:59 3 ml Q6HRRT MICAH Administration Amoxicillin/Clavulanate Potassium 500 mg 05/23/24 22:00 05/24/24 05:09 Amoxicillin/Pot Clav 500 Mg Tablet PO 05/30/24 21:59 500 mg TID MICAH Administration Hydralazine HCl 10 mg 05/21/24 08:25 Hydralazine Inj 20 Mg/Ml Vial IV 06/20/24 08:24 Q4HR PRN SBP>180 Heparin Sodium/Dextrose 25,000 unit in 250 mls @ 9.968 mls/hr 05/22/24 15:30 05/23/24 15:48 Heparin In D5w Ivpb IV 05/24/24 15:29 14 units/kg/hr .Q24H MICAH 11.629 mls/hr Administration Protocol 12 UNITS/KG/HR Potassium Chloride 10 meq in 100 mls @ 100 mls/hr 05/24/24 07:52 05/24/24 10:32 Kcl Ivpb IV 05/24/24 13:51 75 mls/hr Q1H MICAH Administration Ondansetron HCl 4 mg 05/20/24 01:03 Ondansetron Inj 2 Mg/Ml Inj 2 Ml IV 06/19/24 01:02 Q6H PRN NAUSEA OR VOMITING Protocol Pantoprazole Sodium 40 mg 05/20/24 21:00 05/23/24 20:08 Pantoprazole Inj 40 Mg Vial IVP 06/19/24 20:59 40 mg HS MICAH Administration Pharmacy Consult 1 each 05/21/24 08:42 Pharmacy Renal Dose Adjustment 1 Ea XX 06/20/24 08:41 PRN PRN CONSULT Sennosides 1 tab 05/23/24 07:55 Senna Tablet PO 06/19/24 08:59 QDAY PRN constipation Protocol Plan 54-year-old male with past medical history of meth use, HFpEF (50 to 55% on 2022), CKD, and hypertension was admitted to the hospital on 05/20/2024 due to acute decompensated heart failure exacerbation. 1. Acute decompensated heart failure exacerbation (EF 50 to 55% on 2022) 2. Cardiogenic shock? ?Patient came in with shortness of breath and bilateral lower extremity swelling ? Initial BNP was more than 3280 ? 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 Patient clinically looks fluid overloaded and having shortness of breath with having to stop in between sentences. -Patient off pressors and maintaining good BP ?Echo on 03/15/2023 had the following findings: Normal LV size and function. Moderate LVH. Diastolic dysfunction stage I. Estimated EF 50 to 55%. Normal RV size and function. Trace TR. -Echo on 05/20/2024 had the following findings Small LV size, moderate LVH with low normal ejection fraction at around 50%. Flattened interatrial septum in both systole and diastole indicating both RV pressure and volume overload. Severely dilated right ventricle with moderate RV systolic dysfunction and massively dilated right atrium Moderate to severe TR and estimated RVSP around 60 mmHg indicating moderate to severe pulmonary hypertension Trace MR and dilated IVC Plan: ? Currently holding diuretics given kidney function and nephrology recs -Recommend to place patient on high intensity statin and aspirin ? Strict WES's ? Daily weights ?Fluid restrictions ?Low-sodium diet ? Recommend to strictly replace potassium and magnesium to keep above 4 and 2 respectively to avoid any further arrhythmias 3. Hypertensive emergency 4. NSTEMI 5. Descending thoracic aorta thrombus ?Patient's initial blood pressure was 217/126 ? Troponins were elevated at 0.287 on admission and up trended to 0.567 ?EKG did not show any acute ST changes ?NSTEMI most likely type II in the setting of acute decompensated heart failure exacerbation and hypertensive emergency -Primary care team wanted patient to undergo INESSA due to an acute stroke and thrombus in the descending aorta, but at this time patient is stable hemodynamically and could possibly decline during the procedure. Plan: -Recommend no further troponins. -Can continue heparin drip for a total of 48 hrs if no contraindications. -Recommend to continue patient on high intensity statin and aspirin -Recommend to F/U nephrology recs -Recommend vasopressor support as needed as patient most likely was in septic versus cardiogenic shock. 6. Acute embolic infarct of L temporal lobe and ALEX parietal lobes -Primary care team wanted patient to undergo INESSA due to an acute stroke and thrombus in the descending aorta, but at this time patient is stable hemodynamically and could possibly decline during the procedure. ?Continue current management as per primary care team 7. Cirrhosis 8. Congestive hepatopathy 9. Ascites 10. Transaminitis 11. Hyperbilirubinemia ?Abdomen/pelvis CT shows cirrhosis and ascites ? Abdominal ultrasound showed cirrhosis ? AST 112, ALT 84 and 2 bilirubin 3.9 on admission ?Presents most likely on congestive hepatopathy most likely secondary to congestive heart failure ?Continue current management as per primary care team 12. CKD ? Initial creatinine was 2.1 and BUN 26 on admission ?Could be secondary to cardiorenal syndrome ? Continue current management as per primary care team 13. Polysubstance use (meth and THC) ? U tox was positive for meth and THC ? Continue current management as per primary care team Continue rest of management as per primary team. We are grateful to be able to participate in Mr. De's care. Thank you for the consult Plan of care discussed with attending Information Systems Specialist, Dr Vero Jang MD PGY-1 Attending Provider Attestation/Addendum I have personally seen and examined the patient separately on the above date of service and discussed the plan of care with the resident. I reviewed the resident Dr. Pelayo consultation progress note and agree with the resident findings and plan in the note above and have also edited the documentation to reflect my findings and plan. 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 The maximum transverse dimension of the colon is in the descending thoracic aorta was 3.9 cm. Patient still short of breath as the diuresis was stopped because of the acute kidney injury and the plan to do the multiple CTs with contrast. Patient kidney function improved with BUN of 46 and creatinine of 1.9 today. Overall patient is stable and awake and alert and oriented with no major complaints including any chest pain chest pressure or other cardiac complaints. Given the Sean type B dissection I recommended to call the vascular surgeon on-call for the hospital or at an outside hospital and transferred to a tertiary care center for further interventions. 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 Can continue the anticoagulation for now as the patient is tolerating it well. And his blood pressure medications to keep the systolic blood pressure less than 120 mmHg. Also reviewed cardiac chest CTA which shows the left atrial appendage very well and there appears to be no evidence of any thrombus in the left atrial appendage. Given his overall clinical picture I would recommend to treated as a cardioembolic stroke with anticoagulation if okay with neurology. Tried to talk to the neurologist but unable to reach. Please discuss with neurology regarding the anticoagulation if patient can be transitioned to Eliquis low-dose at 2.5 mg twice daily initially given his elevated creatinine and also aspirin 81 mg once daily. Would not do any INESSA at the present point of time given his tenuous respiratory status and patient is already on heparin drip and is tolerating it well. Remy Pham M.D. Interventional Cardiology
[2024-05-24] MEDS: POTASSIUM CHL 10 mEq IVPB 10 MEQ/100 ML BAG 100 MEQ IV ×4 (11:52→16:17)
[2024-05-24] MEDS: BUMETANIDE INJ 0.25 MG/ML VIAL 4 ML 1 MG IVP ×2 (14:36→21:59)
--- NOTE | 2024-05-24 15:02 | ESPR_ITS ---
Documentation for date of: 05/24/24 Subjective Subjective Interval history: No overnight events, patient seen and examined this AM, clinically improving, more awake. Oriented. Exam Vital Signs Temp Pulse Resp BP Pulse Ox O2 Del Method O2 Flow Rate 97.0 F 72 22 H 125/85 H 98 High Flow Nasal Cannula 20 05/24/24 12:00 05/24/24 14:36 05/24/24 13:14 05/24/24 14:36 05/24/24 13:14 05/24/24 12:00 05/24/24 13:14 FiO2 40 05/24/24 13:14 Objective Labs 05/25/24 04:19 05/25/24 04:19 Labs: Laboratory Results - last 24 hr 05/23/24 05/23/24 05/24/24 19:04 20:33 05:33 WBC 5.8 D RBC 4.16 L Hgb 13.3 L Hct 37.0 L MCV 89 MCH 32.0 MCHC 35.9 RDW Std Deviation 46.1 H Plt Count 127 L D Neut % (Auto) 68 Lymph % (Auto) 24 [place] % (Auto) 7 Eos % (Auto) 0 Baso % (Auto) 0 Neut # (Auto) 4.0 Lymph # (Auto) 1.4 [place] # (Auto) 0.4 Eos # (Auto) 0.0 Baso # (Auto) 0.0 Immature Gran # (Auto) 0.04 H Absolute Nucleated RBC 0.00 Immature Gran % 1 H Nucleated RBC % 0 PT 12.3 H INR 1.1 APTT 58.8 H 53.5 H Puncture Site Site Not Noted ABG pH 7.55 H ABG pCO2 34 ABG pO2 53 L* ABG HCO3 30 H ABG O2 Saturation 89 L ABG Base Excess 8 H FiO2 45 Sodium 134 L Potassium 3.0 L Chloride 97 L Carbon Dioxide 26.3 Anion Gap 11 BUN 51 H Creatinine 2.2 H Estim Creat Clear Calc 41.6 L eGFR 35 L BUN/Creatinine Ratio 23 H Glucose 87 Calculated Osmolality 280 Calcium 8.0 L Corrected Calcium 8.6 Phosphorus 1.8 L Magnesium 2.3 Total Bilirubin 3.1 H D AST 161 H ALT 130 H Alkaline Phosphatase 73 Total Protein 6.5 Albumin 3.3 L Globulin 3.2 Albumin/Globulin Ratio 1.0 L ABG Interpretation ABG results: 1205/21/24 05/22/24 17:52 04:45 00:39 ABG pH 7.36 7.42 7.53 H D ABG pCO2 33 44 D 38 ABG pO2 375 H 107 D 43 L* D ABG HCO3 19 L 29 H 31 H ABG O2 Saturation 101 H 98 80 L ABG Base Excess -6 L 3 8 H 05/22/24 05/23/24 00:56 19:04 ABG pH 7.50 H 7.55 H ABG pCO2 40 34 ABG pO2 64 L D 53 L* ABG HCO3 31 H 30 H ABG O2 Saturation 93 89 L ABG Base Excess 7 H 8 H Quality Measures Quality Measures none Assessment & Plan Assessment Current Active Medications: Generic Name Dose Route Start Last Admin Trade Name Freq PRN Reason Stop Dose Admin Acetaminophen 650 mg 05/20/24 01:03 05/24/24 09:09 Acetaminophen 325 Mg Tablet PO 06/19/24 01:02 650 mg Q6H PRN Administration Pain 1-3 or Fever >100.3 Amoxicillin/Clavulanate Potassium 500 mg 05/23/24 22:00 05/24/24 14:36 Amoxicillin/Pot Clav 500 Mg Tablet PO 05/30/24 21:59 500 mg TID MICAH Administration Bumetanide 1 mg 05/24/24 13:15 05/24/24 14:36 Bumetanide Inj 0.25 Mg/Ml Vial 4 Ml IVP 06/23/24 13:14 1 mg BID MICAH Administration Hydralazine HCl 10 mg 05/21/24 08:25 Hydralazine Inj 20 Mg/Ml Vial IV 06/20/24 08:24 Q4HR PRN SBP>180 Heparin Sodium/Dextrose 25,000 unit in 250 mls @ 9.968 mls/hr 05/22/24 15:30 05/23/24 15:48 Heparin In D5w Ivpb IV 05/24/24 15:29 14 units/kg/hr .Q24H MICAH 11.629 mls/hr Administration Protocol 12 UNITS/KG/HR Ondansetron HCl 4 mg 05/20/24 01:03 Ondansetron Inj 2 Mg/Ml Inj 2 Ml IV 06/19/24 01:02 Q6H PRN NAUSEA OR VOMITING Protocol Pantoprazole Sodium 40 mg 05/20/24 21:00 05/23/24 20:08 Pantoprazole Inj 40 Mg Vial IVP 06/19/24 20:59 40 mg HS MICAH Administration Pharmacy Consult 1 each 05/21/24 08:42 Pharmacy Renal Dose Adjustment 1 Ea XX 06/20/24 08:41 PRN PRN CONSULT Sennosides 1 tab 05/23/24 07:55 Senna Tablet PO 06/19/24 08:59 QDAY PRN constipation Protocol Plan 4 yrs old with PMH of HTN, ckd. heart failure with preserved EF , meth use was admitted on 05/19/20 for HTN emergency and man who presented with hypertensive emergency and Acute hypoxic respi failure . rapid respons was called over night , for change in mentation and neurology was consulted. Thrombolytic was not recommended by tele neuro last night because unclear of his last well known . head ct was negative for acute bleed. ? ? #Embolic infracts lt temporal bilatral paietal lobes . -sudden change in mentation overnight, pt is still obtunded, is on high flow -Head ct -Negative for acute hemorrhage, mass effect or midline shift -head/neck CTA- Acute left sphenoid sinusitis,Partially visualized descending thoracic aortic aneurysmal dilatation with extensive thrombus, recommend CTA chest post intravenous contrast follow-up,No significant neck arterial stenoses,No cerebral large vessel occlusions or thrombus -Echo on 05/20 showed Small LV size, moderate LVH with low normal ejection fraction at around 50% Flattened interatrial septum in both systole and diastole indicating both RV pressure and volume overload. Severely dilated right ventricle with moderate RV systolic dysfunction and massively dilated right atrium. Moderate to severe TR and estimated RVSP around 60 mmHg indicating moderate to severe pulmonary hypertension, Trace MR and dilated IVC -MRI- Multiple tiny embolic type infarcts left temporal lobe bilateral parietal lobes -Lipid pannel wnl ,TSH 2.39 ,ammonia 30 -Patient is not a candidate for Thrombolytic.LWN >4,5 hrs -Bedside Swallow Eval -DVT Prophylaxis -IV Fluids, Normal Saline -Head of Bed 30 Degrees -Euglycemia and Avoid Hyperthermia (PRN Acetaminophen) -Continue heparin drip Case discussed with my attending Dr Olivares, Johnna Moya MD,PGY-3 Attending Provider Attestation/Addendum I personally have seen and examined the patient at the bedside and agree with resident findings, assessment and plan of care. Patient's condition is improving clinically, no focal neurological deficit from multiple small strokes in the MRI brain suspicious for cardioembolic origin. CT angiogram showed thoracic aortic dissection. Patient cannot continue with anticoagulation as he has a intramuscular hematoma.
--- NOTE | 2024-05-24 16:49 | PC.CC ---
Addendum entered by Wandy Carson RN 05/24/24 17:03: Spoke with Ludy who states the pt will need authorization. Called [facility] and spoke with Nayeli. Clinical information was sent, phone number provided for attending MD and will send images. Original Note: Pt needing transfer for Cardiovascular or Vascular surgeon due to Type B [place] Aortic Dissection. Call placed to [facility] spoke with Ludy who said she needs clinical information. Clinical information was sent via [employer] fax.
[2024-05-24] MEDS: carVEDILOL 3.125 MG TABLET PO ×3 (17:17→19:53)
[2024-05-24] MEDS: LABETALOL INJ 5 MG/ML VIAL 20 ML 10 MG IV ×2 (17:36→23:11)
--- NOTE | 2024-05-24 18:05 | EVENTNT_ITS ---
Documentation for date of: 05/24/24 Event Note Event Note: Mr. Jiménez is a 54 year old male with PMH of HFpEF, HTN, CKD, methamphetamine use who presents to the ER on 05/19 for shortness of breath and admitted for acute hypoxic respiratory failure secondary to decompensated heart failure. He was intubated due to hypoxia and hypotension, was briefly on pressors, then extubated the following day. A stroke alert was called due to change of mentation. Head MRI showed multiple tiny embolic infarcts in the left temporal lobe and bilateral parietal lobe. He was not a candidate for INESSA. 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 He had a mild troponin at 0.28 that uptrended to 0.56. For this he was started on heparin drip for 48 hours. Heparin was discontinued after 48 hours today due to suspicion of an hemorrhage in the right psoas muscle seen on CT of the abdomen on 05/24 compared to 05/20. Regarding his heart failure, the patient's echo showed an EF of 50% and a severely dilated right ventricle with moderate RV systolic dysfunction and ma ssively dilated right atrial strain, with RSVP of 60mmHg. He was initially diuresed but held due to worsening [place] on CKD. A CT of the chest, abdomen, and pelvis showed a Sean type B aortic disse ction beginning distal to the left subclavian artery and extending distally into the upper abdomen but ending before the origin of the celiac superior mesenteric axes. The maximum transverse dimension of the descending thoracic aortia is approximately 3.9cm. Patient remains on HFNC at 20L at FiO2 of 40%. He is mentating well, awake, alert, and orientated. Peripheral limbs are warm. We will start beta blockers to maintain his SBP between 100-120s and HR below 80. Cardiology, nephrology, and neurology are all following along. Family has been updated throughout the day at bedside. Transfer request has been initiated for vascular evaluation for his Mica Type B aortic dissection. Reached out Dr. Hauser, vascular surgeon, who was out of office. Spoke to [facility] to their precipitation equipment tender physician, Dr. Sapp, who was on- call at [facility]. He stated he is not precipitation equipment tender at [place]. Discussed case briefly and he stated to medically manage the patient, and to repeat a CT if oliveira ve worsening symptoms, and did not think the patient needed to be transferred for intervention. Spoke to transfer center with [facility], who reviewed the case with Dr. Wm Shaver. They reviewed the imaging and stated patient did not need immediate vascular service, and the patient did not need to be transferred at this time. I have reviewed and discussed the patient's care with my attending, Dr. Juju Paulino MD PGY-3
[2024-05-24 18:35] LABS: Albumin, Serum 3.3 gm/dL (3.5-5.0); Anion Gap 8 (7-16); BUN/Creatinine Ratio 24 Ratio (12-20); Blood Urea Nitrogen 46 mg/dL (9-23); Calcium 7.7 mg/dL (8.3-10.6); Calcium (Corrected) 8.3 mg/dL (8.5-10.1); Chloride 96 mMol/L (98-107); Creatinine (Component) 1.9 mg/dL (0.6-1.3); Estimated Creatinine Clearance 48.2 mL/min (>60); Glucose 122 mg/dL (74-106); Osmolality,Calculated 273 (275-295); Phosphorous 2.1 mg/dL (2.4-5.1); Potassium 3.3 mMol/L (3.4-5.1); Sodium 130 mMol/L (136-145); eGFR 41 See Note
[2024-05-24] MEDS: IBUPROFEN TAB 400 MG TABLET PO (21:58)
[2024-05-24] MEDS: POTASSIUM CHLORIDE 20 mEq TABCR 40 MEQ PO (21:58)
[2024-05-24] MEDS: MELATONIN 3 MG TABLET PO (21:58)
[2024-05-24] MEDS: PANTOPRAZOLE INJ 40 MG VIAL IVP (21:59)
[2024-05-25] VITALS (25 sets, daily range): BP systolic 111–156; BP diastolic 68–99; PULSE 61–82; RESP 11–37; TEMP 35.9–36.2; O2SAT 90–95; BMI 27.9
--- NOTE | 2024-05-25 00:07 | PC.NURSE ---
MD, Dr Vargas, regarding pt B/P, taken earlier was 147/92 given labetolol 10 mg IV as ordered, rechecked B/P 140/99, pulse 65. Pt also complaining or right flank pain rating 7/10 after dose of Motrin and tylenol administered and not effective. MD to place orders.
[2024-05-25] MEDS: carVEDILOL 3.125 MG TABLET PO ×2 (00:32→13:00)
[2024-05-25] MEDS: HYDROcodone/APAP 5/325 TABLET 1 TAB PO (00:33)
[2024-05-25 05:46] LABS: Basophils % (Auto) 0 % (0-2.5); Eosinophils % (Auto) 0 % (0-10); Hematocrit 34.4 % (41.0-53.0); Hemoglobin 12.1 g/dL (13.5-16.0); Immature Granulocytes % (Auto) 4 % (0-0); Immature Granulocytes Auto 0.17 Thou/mm3 (0.00-0.00); Lymphocytes # (Auto) 1.7 Thou/mm3 (1.0-4.8); Lymphocytes % (Auto) 38 % (10-50); Mean Corpuscular HGB Conc 35.2 g/dl (31.0-37.0); Mean Corpuscular Hemoglobin 31.3 pg (25.0-35.0); Mean Corpuscular Volume 89 fL (80-100); Monocytes # (Auto) 0.1 Thou/mm3 (0.0-0.8); Monocytes % (Auto) 2 % (0-12); Neutrophils # (Auto) 2.5 Thou/mm3 (1.8-7.7); Neutrophils % (Auto) 56 % (37-80); Nucleated Red Blood Cell % 0 /100 WBC (0); Platelet Count 133 Thou/mm3 (140-440); RDW Standard Deviation 45.7 fL (35.1-43.9); Red Blood Count 3.86 Miln/mm3 (4.50-5.90); White Blood Count 4.5 Thou/mm3 (3.8-10.6)
[2024-05-25 06:12] LABS: Partial Thromboplastin Time 32.2 Seconds (22.0-36.0)
[2024-05-25 06:34] LABS: Alanine Aminotransferase 114 U/L (10-49); Albumin, Serum 3.2 gm/dL (3.5-5.0); Albumin/Globulin Ratio 1.1 (1.2-2.2); Alkaline Phosphatase 72 U/L (46-116); Anion Gap 9 (7-16); Aspartate Amino Transferase 137 U/L (0-34); BUN/Creatinine Ratio 24 Ratio (12-20); Bilirubin,Total 2.7 mg/dL (0.3-1.2); Blood Urea Nitrogen 47 mg/dL (9-23); Calcium (Corrected) 8.6 mg/dL (8.5-10.1); Chloride 97 mMol/L (98-107); Estimated Creatinine Clearance 49.6 mL/min (>60); Glucose 85 mg/dL (74-106); Magnesium 2.1 mg/dL (1.6-2.6); Osmolality,Calculated 273 (275-295); Phosphorous 2.6 mg/dL (2.4-5.1); Potassium 3.4 mMol/L (3.4-5.1); Sodium 131 mMol/L (136-145); Total Protein 6.2 gm/dL (5.7-8.2); eGFR 39 See Note
[2024-05-25] MEDS: LABETALOL INJ 5 MG/ML VIAL 20 ML 10 MG IV (07:30)
[2024-05-25] MEDS: AMOXICILLIN/POT CLAV 500 MG TABLET PO ×2 (08:47→20:37)
[2024-05-25] MEDS: carVEDILOL 3.125 MG TABLET 6.25 MG PO (08:47)
[2024-05-25] MEDS: POTASSIUM CHLORIDE 10% 20 MEQ/15 ML UDC 40 MEQ PO (08:47)
[2024-05-25] MEDS: BUMETANIDE INJ 0.25 MG/ML VIAL 4 ML 1 MG IVP ×2 (08:48→20:36)
--- NOTE | 2024-05-25 09:39 | ESPR_ITS ---
Documentation for date of: 05/25/24 Subjective Subjective Interval history: Mr. De is a 54-year-old male with past medical history of hypertension, CKD stage IIIb, HFpEF, methamphetamine use was admitted for acute hypoxic respiratory failure due to CHF exacerbation and hypertensive emergency. Patient was upgraded to ICU due to altered mental status due to hypotension and hypoxia. Therefore patient ended up getting intubated for airway protection and started on Levophed during ICU course. Patient was given reversal for calcium channel prasanna with calcium chloride x 3 after which patient's blood pressure showed improvement. 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 Patient's head and neck CTA was significant for descending thoracic aorta aneurysmal dilation with extensive thrombus and radiology recommended CTA chest post IV contrast follow-up. Patient is currently on Bumex 2 mg IV twice daily for IV diuresis, Zosyn for pneumonia coverage, heparin GGT due to concern of NSTEMI, Coreg, Flomax and DuoNeb treatments. Nephrology team consulted as patient has LATASHA on CKD with BUN 54, creatinine 2.7, GFR 27 per chart review patient's baseline GFR is 44. Patient seen at bedside, patient is arousable to sternal rub, unable to answer questions, not conversational, patient's mother at bedside case discussed extensively with her. Patient is currently on IV Bumex, will be given IV contrast for CTA. Discussed with patient's mother at bedside that if patient's renal function continues to decline patient might need dialysis temporarily, patient's mother is the primary decision maker and agrees with dialysis if needed. 05/23/2024: Patient seen at bedside today, patient is alert oriented x 3, MRI brain was positive for multiple tiny embolic type infarcts left temporal lobe bilateral parietal lobe, on examination gross movement is noted in all 4 limbs, patient's renal function improved slightly GFR 28, creatinine 2.6, BUN 59 compared to yesterday, IV diuretics were held. Patient is still pending CTA chest, discussed with family at bedside, agrees with temporary dialysis if needed. Would recommend to hold diuretics currently as patient's swelling has improved, saturating well on oxy mask 3-5 L. Will continue to monitor patient's renal function. 05/24/2024: Patient seen at bedside on med telemetry today, alert oriented x 3. Patient is scheduled for CTA today, otherwise patient's renal function has improved BUN 51, creatinine 2.2, GFR 35, IV diuretics are being held currently. Bilateral pitting edema noted, more severe than yesterday, consider resuming diuretics. Continues to be on high flow oxygen 20 L. Otherwise patient has no complaints, will continue to monitor patient's renal function post CTA, family and patient agrees with dialysis if needed. 05/25/2024: Patient seen at bedside currently on med telemetry. Patient received CTA yesterday, CTA positive for Hanover type B dissecting aortic aneurysm, primary team trying to transfer the patient to tertiary care for possible vascular surgery intervention. Patient has good urine output despite receiving IV contrast yesterday, produced about 2.35 L worth of urine yesterday creatinine 2.0, GFR 39, BUN 47. Continues to be on high flow oxygen 20 L. Will continue to monitor renal function and urine output. Exam Vital Signs Temp Pulse Resp BP Pulse Ox O2 Del Method O2 Flow Rate 96.9 F 66 20 125/83 94 L High Flow Nasal Cannula 20 05/25/24 08:00 05/25/24 09:38 05/25/24 09:38 05/25/24 08:48 05/25/24 09:38 05/25/24 08:00 05/25/24 09:38 FiO2 40 05/25/24 09:38 Narrative Exam General: AO x 3, conversational Eyes: Pupils reactive to light. Ears: No visible ear discharge. Nose: No visible nasal discharge. Mouth/Throat: moist mucous membranes, no redness, no lesions. Neck: Neck supple, non-tender, no cervical lymphadenopathy. Lungs: B/L crackles, No accessory muscle use. Currently on oxy mask. Cardio: Normal S1/S2, regular rhythm, no murmurs, no JVD Abdomen: Soft, non-tender, no palpable masses. Extremities: Symmetrical, no significant deformities, 2+ peripheral edema, non- tender, peripheral pulses presents. Skin: No rashes, no lesions, warm to touch. Neuro: Alert and oriented x3, no gross neurological deficit, and patient able to move all 4 extremities. Objective Labs 05/25/24 04:19 05/25/24 04:19 Labs: Laboratory Results - last 24 hr 05/24/24 05/24/24 05/25/24 18:08 18:31 04:19 WBC 4.5 RBC 3.86 L Hgb 12.1 L Hct 34.4 L MCV 89 MCH 31.3 MCHC 35.2 RDW Std Deviation 45.7 H Plt Count 133 L Neut % (Auto) 56 Lymph % (Auto) 38 [place] % (Auto) 2 Eos % (Auto) 0 Baso % (Auto) 0 Neut # (Auto) 2.5 Lymph # (Auto) 1.7 [place] # (Auto) 0.1 Eos # (Auto) 0.0 Baso # (Auto) 0.0 Immature Gran # (Auto) 0.17 H Absolute Nucleated RBC 0.00 Immature Gran % 4 H Nucleated RBC % 0 APTT 32.2 D Sodium 130 L 131 L Potassium 3.3 L 3.4 Chloride 96 L 97 L Carbon Dioxide 26.0 25.0 Anion Gap 8 9 BUN 46 H 47 H Creatinine 1.9 H 2.0 H Estim Creat Clear Calc 48.2 L 49.6 L eGFR 41 L 39 L BUN/Creatinine Ratio 24 H 24 H Glucose 122 H 85 Calculated Osmolality 273 L 273 L Calcium 7.7 L 8.0 L Corrected Calcium 8.3 L 8.6 Phosphorus 2.1 L 2.6 Magnesium 2.1 Total Bilirubin 2.7 H AST 137 H ALT 114 H Alkaline Phosphatase 72 Total Protein 6.2 Albumin 3.3 L 3.2 L Globulin 3.0 Albumin/Globulin Ratio 1.1 L Blood Type AB Positive Antibody Screen NEGATIVE Blood Bank Wristband ID Yes ABG Interpretation ABG results: 05/20/24 05/21/24 05/22/24 17:52 04:45 00:39 ABG pH 7.36 7.42 7.53 H D ABG pCO2 33 44 D 38 ABG pO2 375 H 107 D 43 L* D ABG HCO3 19 L 29 H 31 H ABG O2 Saturation 101 H 98 80 L ABG Base Excess -6 L 3 8 H 05/22/24 05/23/24 00:56 19:04 ABG pH 7.50 H 7.55 H ABG pCO2 40 34 ABG pO2 64 L D 53 L* ABG HCO3 31 H 30 H ABG O2 Saturation 93 89 L ABG Base Excess 7 H 8 H Quality Measures Quality Measures none Assessment & Plan Assessment Current Active Medications: Generic Name Dose Route Start Last Admin Trade Name Freq PRN Reason Stop Dose Admin Acetaminophen 650 mg 05/20/24 01:03 05/24/24 23:11 Acetaminophen 325 Mg Tablet PO 06/19/24 01:02 650 mg Q6H PRN Administration Pain 1-3 or Fever >100.3 Hydrocodone Bitart/Acetaminophen 1 tab 05/25/24 07:22 Hydrocodone/Apap 5/325 Tablet PO 05/30/24 07:21 Q4HR PRN PAIN SCALE 4-6 (Moderate Amoxicillin/Clavulanate Potassium 500 mg 05/24/24 21:00 05/25/24 08:47 Amoxicillin/Pot Clav 500 Mg Tablet PO 05/31/24 20:59 500 mg BID MICAH Administration Bumetanide 1 mg 05/24/24 13:15 05/25/24 08:48 Bumetanide Inj 0.25 Mg/Ml Vial 4 Ml IVP 06/23/24 13:14 1 mg BID MICAH Administration Carvedilol 6.25 mg 05/24/24 17:30 05/25/24 08:47 Carvedilol 3.125 Mg Tablet PO 06/23/24 17:29 6.25 mg BIDWM MICAH Administration Morphine Sulfate 1 mg 05/25/24 07:22 Morphine Sulf Inj 10 Mg/Ml Vial IVP 05/30/24 07:21 Q4HR PRN PAIN SCALE 7-10 (Severe Ondansetron HCl 4 mg 05/20/24 01:03 Ondansetron Inj 2 Mg/Ml Inj 2 Ml IV 06/19/24 01:02 Q6H PRN NAUSEA OR VOMITING Protocol Pantoprazole Sodium 40 mg 05/20/24 21:00 05/24/24 21:59 Pantoprazole Inj 40 Mg Vial IVP 06/19/24 20:59 40 mg HS MICAH Administration Pharmacy Consult 1 each 05/21/24 08:42 Pharmacy Renal Dose Adjustment 1 Ea XX 06/20/24 08:41 PRN PRN CONSULT Potassium Chloride 20 meq 05/25/24 12:00 Potassium Chloride 10% 20 Meq/15 Ml Udc PO 05/25/24 12:01 X1 ONE Sennosides 1 tab 05/23/24 07:55 Senna Tablet PO 06/19/24 08:59 QDAY PRN constipation Protocol Plan Summary: Mr. De is a 54-year-old male with past medical history of hypertension, CKD stage IIIb, HFpEF, methamphetamine use was admitted for acute hypoxic respiratory failure due to CHF exacerbation and hypertensive emergency. Nephrology team consulted for LATASHA on CKD. #LATASHA on CKD stage IIIb BUN 54, creatinine 2.7, GFR 27 on 05/22 Per chart review patient's baseline GFR is 44. Currently on IV Bumex, renal function BUN 47, creatinine 2.0, GFR 39 Patient has good urine output, produced about 2.35 L in the last 24 hours Plan: -Currently on IV Bumex 1 mg IVP twice daily -Strict I&O's -Dose medication renally -Avoid nephrotoxic medications -Monitor renal panel closely -Bilateral pitting edema noted, consider resuming diuretics per msws -Discussed with patient about need of temporary dialysis if renal function declines, patient agrees #Sean type B dissecting aortic aneurysm #Acute hypoxic encephalopathy, improving #Methamphetamine abuse disorder #Marijuana abuse disorder #Shock, resolved #NSTEMI #Hypertension #Acute exacerbation of HFpEF #Acute hypoxic respiratory failure 2/2 HFpEF exacerbation and Aspiration PNA #Aspiration pneumonia #Cystic lung 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 Hernandez. Otoniel Allen PGY1 Attending Provider Attestation/Addendum Patient seen and examined with resident physician Dr. Allen. Note reviewed, agree with findings and recommendations. This morning patient had CTA with contrast. CTA chest/abdomen -- Hanover type B aortic dissection beginning distal to the left subclavian artery and extending distally into the upper abdomen but ending before the origin of the celiac superior mesenteric axes No abdominal infarction noted Primary hepatocellular disease with mild ascites Enlarged right psoas muscle with necrotic center,, consider hemorrhage in the sella as muscle, clinical correlation advised After the results-heparin drip was discontinued. Plans were made for transfer. Apparently primary team has been talking to vascular surgery. Kidney function has been stable. Plan of care discussed with his ashleigh at bedside. Patient continues to have some shortness of breath. Will resume diuretics . 05/25 Spoke to brother at bedside. Creatinine slightly elevated from diuretics and contrast. Will monitor closely. Urine output very good with Bumex. Still seems to be tired. Shortness of breath is better. Plans for transfer to tertiary care center still in progress.
--- NOTE | 2024-05-25 09:45 | PC.CM ---
Addendum entered by Rebecca Calabrese RN 05/25/24 14:45: I received a call back from Harmony with [facility]. She states her doctor reviewed the films and paperwork and spoke to Dr. Paulino. Harmony states her doctor told Dr. Paulino patient can be managed medically. I reached out to Dr. Paulino to follow up on her conversation with [facility]. She states she did speak to the at [facility] and she will cancel the request for transfer because we can manage patient medically. She states she will update patient's family. I will update tele charge nurse and SS team. Addendum entered by Rebecca Calabrese RN 05/25/24 13:09: I received a call back from Harmony and she states she may be able to present patient to her doctor. She requested I fax over information. I faxed over information and I pushed over images. Addendum entered by Rebecca Calabrese RN 05/25/24 13:02: I have not heard back from Fabiola at [facility]. I called and initiated a transfer with [facility]. Harmony transfer nurse states [facility] is at capacity and they will not be able to review patient for transfer due to capacity. I asked Harmony if they could have their doctor review patient to see if patient is appropriate higher level transfer. Harmony stated they cannot present patient to their doctor if they do not have an open bed at their facility. Harmony states we can call back later today to see if they have an open bed. Addendum entered by Rebecca Calabrese RN 05/25/24 10:07: I contacted [facility] and I spoke to Danae transfer nurse. I initiated transfer for and I faxed over face sheet. Danae states they would not be able to review patient without getting authorization first. I let her know I could contact the insurance but I do not know if they have weekend coverage. I contacted Fabiola at [facility] phone # [phone] and I left a message for a call back. I left a detailed message letting her know we are needing to transfer patient for cardiovascular services. Addendum entered by Rebecca Calabrese RN 05/25/24 09:55: I contacted [facility] in [facility] and I spoke to Jana. She states they do not have cardiovascular money room supervisor. Patient declined due to not having the service. Original Note: I reviewed notes and I see a transfer was started for cardiovascular for thoracic aorta aneusrysm with extensive thrombus. I reviewed notes and I saw [facility] stating patient does not need an acute transfer. I called and spoke to [facility], and she states patient was declined by Dr. Sapp. I spoke to Dr. Paulino and I let her know as per the notes patient was declined for transfer. Per the notes [facility] doctor reviewed information and they stated patient did not need an acute transfer. Dr. Paulino stated she would like me to try elsewhere. I let her know I will reach out to [facility].
--- NOTE | 2024-05-25 10:11 | PD.RESPRO ---
Documentation for date of: 05/25/24 Subjective Subjective Interval history: Patient was seen at bedside this morning. No overnight events. Patient still on high flow nasal cannula. Patient is AO x 3 and more awake and alert today. Completed 48 hrs of Heparin Recommend to continue aspirin, plavix, and statin. Patient had total balance of -770 mL in the past 24 hours. Can continue Bumex 1mg BID as kidney function showed improvement Patient's kidney function seems to be improving with BUN 47 and creatinine 2 Potassium 3.4 and magnesium 2.1 today, recommend to keep potassium and magnesium above 4 and 2 to avoid any further arrhythmias. Patient had stroke alert called due to changes in mentation and brain MRI with MRA showed multiple tiny embolic infarcts of the left temporal lobe and bilateral parietal lobes. 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 Primary care team wanted patient to undergo INESSA due to an acute stroke and thrombus in the descending aorta, but at this time patient is stable hemodynamically and could possibly decline during the procedure. Will follow-up on neurology recommendations on anticoagulation. Echo on 05/20/2024 had the following findings Small LV size, moderate LVH with low normal ejection fraction at around 50%. Flattened interatrial septum in both systole and diastole indicating both RV pressure and volume overload. Severely dilated right ventricle with moderate RV systolic dysfunction and massively dilated right atrium Moderate to severe TR and estimated RVSP around 60 mmHg indicating moderate to severe pulmonary hypertension Trace MR and dilated IVC Exam Vital Signs Temp Pulse Resp BP Pulse Ox O2 Del Method O2 Flow Rate 96.9 F 66 20 125/83 94 L High Flow Nasal Cannula 20 05/25/24 08:00 05/25/24 09:38 05/25/24 09:38 05/25/24 08:48 05/25/24 09:38 05/25/24 08:00 05/25/24 09:38 FiO2 40 05/25/24 09:38 Narrative Exam General:AO x 3, more awake and alert, disheveled Eyes: PERRL, EOMI. icteric, vision grossly intact. Eyes bulging Ears: No ear pain, no ear discharge, Hearing grossly intact. Nose: No nasal discharge. Mouth/Throat: dry mucous membranes, no redness, no lesions. Neck: Neck supple, non-tender, no cervical lymphadenopathy. Lungs: Decreased in lower lobes, No accessory muscle use. Cardio: Normal S1/S2, regular rhythm, no murmurs, no JVD Abdomen: Soft, non-tender, no palpable masses, peristalsis present, no guarding or rebound. Extremities: Symmetrical, no significant deformities, 1+ peripheral edema , non-tender, peripheral pulses presents. Skin: No rashes, no lesions, warm to touch. Neuro: No focal neurological deficits. motor and sensory intact Objective Labs 05/26/24 05:05 05/26/24 05:05 Labs: Laboratory Results - last 24 hr 05/24/24 05/24/24 05/25/24 18:08 18:31 04:19 WBC 4.5 RBC 3.86 L Hgb 12.1 L Hct 34.4 L MCV 89 MCH 31.3 MCHC 35.2 RDW Std Deviation 45.7 H Plt Count 133 L Neut % (Auto) 56 Lymph % (Auto) 38 [place] % (Auto) 2 Eos % (Auto) 0 Baso % (Auto) 0 Neut # (Auto) 2.5 Lymph # (Auto) 1.7 [place] # (Auto) 0.1 Eos # (Auto) 0.0 Baso # (Auto) 0.0 Immature Gran # (Auto) 0.17 H Absolute Nucleated RBC 0.00 Immature Gran % 4 H Nucleated RBC % 0 APTT 32.2 D Sodium 130 L 131 L Potassium 3.3 L 3.4 Chloride 96 L 97 L Carbon Dioxide 26.0 25.0 Anion Gap 8 9 BUN 46 H 47 H Creatinine 1.9 H 2.0 H Estim Creat Clear Calc 48.2 L 49.6 L eGFR 41 L 39 L BUN/Creatinine Ratio 24 H 24 H Glucose 122 H 85 Calculated Osmolality 273 L 273 L Calcium 7.7 L 8.0 L Corrected Calcium 8.3 L 8.6 Phosphorus 2.1 L 2.6 Magnesium 2.1 Total Bilirubin 2.7 H AST 137 H ALT 114 H Alkaline Phosphatase 72 Total Protein 6.2 Albumin 3.3 L 3.2 L Globulin 3.0 Albumin/Globulin Ratio 1.1 L Blood Type AB Positive Antibody Screen NEGATIVE Blood Bank Wristband ID Yes ABG Interpretation ABG results: 05/20/24 05/21/24 05/22/24 17:52 04:45 00:39 ABG pH 7.36 7.42 7.53 H D ABG pCO2 33 44 D 38 ABG pO2 375 H 107 D 43 L* D ABG HCO3 19 L 29 H 31 H ABG O2 Saturation 101 H 98 80 L ABG Base Excess -6 L 3 8 H 05/22/24 05/23/24 00:56 19:04 ABG pH 7.50 H 7.55 H ABG pCO2 40 34 ABG pO2 64 L D 53 L* ABG HCO3 31 H 30 H ABG O2 Saturation 93 89 L ABG Base Excess 7 H 8 H Quality Measures Quality Measures none Assessment & Plan Assessment Current Active Medications: Generic Name Dose Route Start Last Admin Trade Name Freq PRN Reason Stop Dose Admin Acetaminophen 650 mg 05/20/24 01:03 05/24/24 23:11 Acetaminophen 325 Mg Tablet PO 06/19/24 01:02 650 mg Q6H PRN Administration Pain 1-3 or Fever >100.3 Hydrocodone Bitart/Acetaminophen 1 tab 05/25/24 07:22 Hydrocodone/Apap 5/325 Tablet PO 05/30/24 07:21 Q4HR PRN PAIN SCALE 4-6 (Moderate Amoxicillin/Clavulanate Potassium 500 mg 05/24/24 21:00 05/25/24 08:47 Amoxicillin/Pot Clav 500 Mg Tablet PO 05/31/24 20:59 500 mg BID MICAH Administration Bumetanide 1 mg 05/24/24 13:15 05/25/24 08:48 Bumetanide Inj 0.25 Mg/Ml Vial 4 Ml IVP 06/23/24 13:14 1 mg BID MICAH Administration Carvedilol 6.25 mg 05/24/24 17:30 05/25/24 08:47 Carvedilol 3.125 Mg Tablet PO 06/23/24 17:29 6.25 mg BIDWM MICAH Administration Morphine Sulfate 1 mg 05/25/24 07:22 Morphine Sulf Inj 10 Mg/Ml Vial IVP 05/30/24 07:21 Q4HR PRN PAIN SCALE 7-10 (Severe Ondansetron HCl 4 mg 05/20/24 01:03 Ondansetron Inj 2 Mg/Ml Inj 2 Ml IV 06/19/24 01:02 Q6H PRN NAUSEA OR VOMITING Protocol Pantoprazole Sodium 40 mg 05/20/24 21:00 05/24/24 21:59 Pantoprazole Inj 40 Mg Vial IVP 06/19/24 20:59 40 mg HS MICAH Administration Pharmacy Consult 1 each 05/21/24 08:42 Pharmacy Renal Dose Adjustment 1 Ea XX 06/20/24 08:41 PRN PRN CONSULT Potassium Chloride 20 meq 05/25/24 12:00 Potassium Chloride 10% 20 Meq/15 Ml Udc PO 05/25/24 12:01 X1 ONE Sennosides 1 tab 05/23/24 07:55 Senna Tablet PO 06/19/24 08:59 QDAY PRN constipation Protocol Plan 54-year-old male with past medical history of meth use, HFpEF (50 to 55% on 2022), CKD, and hypertension was admitted to the hospital on 05/20/2024 due to acute decompensated heart failure exacerbation. 1. 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 Plan: -Appears to be chronic and recommend strict blood pressure control to keep systolic blood pressure less than 120 mmHg at all the times. 2. Acute decompensated heart failure exacerbation (EF 50 to 55% on 2022) Patient came in with shortness of breath and bilateral lower extremity swelling ? Initial BNP was more than 3280 ? Patient has a history of HFpEF and states that he follows up with leather leveler in [place] ? Patient clinically looks fluid overloaded and having shortness of breath with having to stop in between sentences. -Patient off pressors and maintaining good BP ?Echo on 03/15/2023 had the following findings: Normal LV size and function. Moderate LVH. Diastolic dysfunction stage I. Estimated EF 50 to 55%. Normal RV size and function. Trace TR. -Echo on 05/20/2024 had the following findings Small LV size, moderate LVH with low normal ejection fraction at around 50%. Flattened interatrial septum in both systole and diastole indicating both RV pressure and volume overload. Severely dilated right ventricle with moderate RV systolic dysfunction and massively dilated right atrium Moderate to severe TR and estimated RVSP around 60 mmHg indicating moderate to severe pulmonary hypertension Trace MR and dilated IVC Plan: ?Can continue Bumex 1mg BID as kidney function showed improvement -Recommend to place patient on high intensity statin and aspirin ? Strict WES's ? Daily weights ?Fluid restrictions ?Low-sodium diet ? Recommend to strictly replace potassium and magnesium to keep above 4 and 2 respectively to avoid any further arrhythmias 3. Hypertensive emergency 4. NSTEMI 5. Descending thoracic aorta thrombus ?Patient's initial blood pressure was 217/126 ? Troponins were elevated at 0.287 on admission and up trended to 0.567 ?EKG did not show any acute ST changes ?NSTEMI most likely type II in the setting of acute decompensated heart failure exacerbation and hypertensive emergency -Primary care team wanted patient to undergo INESSA due to an acute stroke and thrombus in the descending aorta, but at this time patient is stable hemodynamically and could possibly decline during the procedure. Plan: -Recommend no further troponins. -Completed 48 hours of heparin -Recommend to continue patient on high intensity statin, Plavix, and aspirin -Recommend to F/U nephrology recs -Recommend vasopressor support as needed as patient most likely was in septic versus cardiogenic shock. 6. Acute embolic infarct of L temporal lobe and ALEX parietal lobes -Primary care team wanted patient to undergo INESSA due to an acute stroke and thrombus in the descending aorta, but at this time patient is stable hemodynamically and could possibly decline during the procedure. ?Continue current management as per primary care team 7. Cirrhosis 8. Congestive hepatopathy 9. Ascites 10. Transaminitis 11. Hyperbilirubinemia ?Abdomen/pelvis CT shows cirrhosis and ascites ? Abdominal ultrasound showed cirrhosis ? AST 112, ALT 84 and 2 bilirubin 3.9 on admission ?Presents most likely on congestive hepatopathy most likely secondary to congestive heart failure ?Continue current management as per primary care team 12. CKD ? Initial creatinine was 2.1 and BUN 26 on admission ?Could be secondary to cardiorenal syndrome ? Continue current management as per primary care team 13. Polysubstance use (meth and THC) ? U tox was positive for meth and THC ? Continue current management as per primary care team Continue rest of management as per primary team. We are grateful to be able to participate in Mr. De's care. Thank you for the consult Plan of care discussed with attending Se[employer] And Canceling Machine Operator, Dr Vero Jang MD PGY-1 Attending Provider Attestation/Addendum I have personally seen and examined the patient separately on the above date of service and discussed the plan of care with the resident. I reviewed the resident Dr. Pelayo consultation progress note and agree with the resident findings and plan in the note above and have also edited the documentation to reflect my findings and plan. I have personally seen and examined the patient separately on the above date of service and discussed the plan of care with the resident. I reviewed the resident Dr. Pelayo consultation progress note and agree with the resident findings and plan in the note above and have also edited the documentation to reflect my findings and plan. CT chest abdomen and pelvis was completed today and showed [place] type B aortic dissection beginning distal to the left subclavian artery and extending into the upper abdomen but ending prior to the origin of celiac, superior mesenteric artery axis. The maximum transverse dimension of the colon is in the descending thoracic aorta was 3.9 cm. Overall patient is stable and awake and alert and oriented with no major complaints including any chest pain chest pressure or other cardiac complaints. Given the [place] type B dissection I recommended to call the vascular surgeon on-call for the hospital or at an outside hospital and transferred to a tertiary care center for further interventions. Overall the [place] type B dissection appears to be chronic and recommend strict blood pressure control to keep systolic blood pressure less than 120 mmHg at all the times. And his blood pressure medications to keep the systolic blood pressure less than 120 mmHg. Also reviewed cardiac chest CTA which shows the left atrial appendage very well and there appears to be no evidence of any thrombus in the left atrial appendage. Discussed with neurology and did not recommend any anticoagulation for consideration of cardioembolic stroke and recommended only aspirin and Plavix for now. There is no further need of INESSA right now. Patient does not have any atrial fibrillation to be on anticoagulation at the present point of time and would recommend against any anticoagulation as patient also is having hematoma. 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 Patient has been diuresing well with Bumex 1 mg IV twice daily and BUN and creatinine continues to improve at 37 and 1.7. Strict input output Daily weights and 2 g odium diet. Patient continues to still have some shortness of breath and still is on high flow nasal cannula. Primary team titrating his oxygen. Also on antibiotics for the recent sepsis. Management of rest of the medical conditions as per primary team and other consultants. Thank you for the consult and allowing me to participate in the care of the patient. Cardiology will continue to follow. Remy Ramirez Anumandla M.D. Interventional Cardiology
[2024-05-25] MEDS: LABETALOL INJ 5 MG/ML VIAL 20 ML 10 MG IVP ×3 (11:08→23:59)
[2024-05-25] MEDS: POTASSIUM CHLORIDE 10% 20 MEQ/15 ML UDC PO (12:22)
--- NOTE | 2024-05-25 12:34 | ESPR_ITS ---
Documentation for date of: 05/25/24 Subjective Subjective Interval history: Patient is a 54-year-old male with a past medical history of hypertension, chronic kidney disease stage III, history of congestive heart failure HFpEF- diastolic dysfunction stage I 50 to 55% (03/15/2023), and history of poly- substance use disorder (meth/THC) who was initially admitted for acute hypoxic respiratory failure and CHF exacerbation, then upgraded to ICU and downgraded on 05/22/2024. No overnight events reported for patient. Patient continued to stable oxygen saturation over night at rr 20 and Fio2 40% with RR 22 and no accessory muscles notes. Patient was alert and oriented during bedside exam. Family and patient is understanding of attempts to transfer patient out, less likely given patient is hemodynamically stable. Denied chest pain of dyspnea. Exam Vital Signs Temp Pulse Resp BP Pulse Ox O2 Del Method O2 Flow Rate 96.9 F 62 18 129/90 H 94 L High Flow Nasal Cannula 20 05/25/24 08:00 05/25/24 11:08 05/25/24 11:04 05/25/24 11:08 05/25/24 11:04 05/25/24 08:00 05/25/24 11:04 FiO2 35 05/25/24 11:04 Narrative Exam General Appearance: Alert & Oriented X3, well-nourished male who is lying in bed in no acute distress. Mild tenderness at left hip region. Tenderness near mid- tibila shaft. Mild Tenderness on right hip HEENT: Skull symmetrical and atraumatic. Conjunctivae pin and moist. Pupils equal, round, reactive to light and accommodation (PERRL). External ear without lesion or discharge. Straight, nares patient, mucosa pink, no discharge. Cardio: Normal Rate and Rhythm with S1 and S2 heart sounds. No bruits on carotid auscultation. Peripheral edema improved, +1 Lungs: Symmetric expansion. Chest and back non-tender. Breath sounds vesicular with improved crackles. Abdomen: Non-tender, Non-distended, Normal Reactive Bowel Sounds Neuro: YesAlert, Yes cooperative, Yes oriented to person, Yes place, and Yes time. Speech clear. CN grossly intact. Upper motor strength 5/5 and Lower motor strength 4/5. Sensation intact. Objective Labs 05/26/24 05:05 05/26/24 05:05 Labs: Laboratory Results - last 24 hr 05/24/24 05/24/24 05/25/24 18:08 18:31 04:19 WBC 4.5 RBC 3.86 L Hgb 12.1 L Hct 34.4 L MCV 89 MCH 31.3 MCHC 35.2 RDW Std Deviation 45.7 H Plt Count 133 L Neut % (Auto) 56 Lymph % (Auto) 38 [place] % (Auto) 2 Eos % (Auto) 0 Baso % (Auto) 0 Neut # (Auto) 2.5 Lymph # (Auto) 1.7 [place] # (Auto) 0.1 Eos # (Auto) 0.0 Baso # (Auto) 0.0 Immature Gran # (Auto) 0.17 H Absolute Nucleated RBC 0.00 Immature Gran % 4 H Nucleated RBC % 0 APTT 32.2 D Sodium 130 L 131 L Potassium 3.3 L 3.4 Chloride 96 L 97 L Carbon Dioxide 26.0 25.0 Anion Gap 8 9 BUN 46 H 47 H Creatinine 1.9 H 2.0 H Estim Creat Clear Calc 48.2 L 49.6 L eGFR 41 L 39 L BUN/Creatinine Ratio 24 H 24 H Glucose 122 H 85 Calculated Osmolality 273 L 273 L Calcium 7.7 L 8.0 L Corrected Calcium 8.3 L 8.6 Phosphorus 2.1 L 2.6 Magnesium 2.1 Total Bilirubin 2.7 H AST 137 H ALT 114 H Alkaline Phosphatase 72 Total Protein 6.2 Albumin 3.3 L 3.2 L Globulin 3.0 Albumin/Globulin Ratio 1.1 L Blood Type AB Positive Antibody Screen NEGATIVE Blood Bank Wristband ID Yes ABG Interpretation ABG results: 05/20/24 05/21/24 05/22/24 17:52 04:45 00:39 ABG pH 7.36 7.42 7.53 H D ABG pCO2 33 44 D 38 ABG pO2 375 H 107 D 43 L* D ABG HCO3 19 L 29 H 31 H ABG O2 Saturation 101 H 98 80 L ABG Base Excess -6 L 3 8 H 05/22/24 05/23/24 00:56 19:04 ABG pH 7.50 H 7.55 H ABG pCO2 40 34 ABG pO2 64 L D 53 L* ABG HCO3 31 H 30 H ABG O2 Saturation 93 89 L ABG Base Excess 7 H 8 H Quality Measures Quality Measures none Assessment & Plan Assessment Current Active Medications: Generic Name Dose Route Start Last Admin Trade Name Meme PRN Reason Stop Dose Admin Acetaminophen 650 mg 05/20/24 01:03 05/24/24 23:11 Acetaminophen 325 Mg Tablet PO 06/19/24 01:02 650 mg Q6H PRN Administration Pain 1-3 or Fever >100.3 Hydrocodone Bitart/Acetaminophen 1 tab 05/25/24 07:22 Hydrocodone/Apap 5/325 Tablet PO 05/30/24 07:21 Q4HR PRN PAIN SCALE 4-6 (Moderate Amoxicillin/Clavulanate Potassium 500 mg 05/24/24 21:00 05/25/24 08:47 Amoxicillin/Pot Clav 500 Mg Tablet PO 05/31/24 20:59 500 mg BID MICAH Administration Bumetanide 1 mg 05/24/24 13:15 05/25/24 08:48 Bumetanide Inj 0.25 Mg/Ml Vial 4 Ml IVP 06/23/24 13:14 1 mg BID MICAH Administration Carvedilol 12.5 mg 05/25/24 17:30 Carvedilol 12.5 Mg Tablet PO 06/24/24 17:29 BIDWM MICAH Carvedilol 3.125 mg 05/25/24 12:32 Carvedilol 3.125 Mg Tablet PO 05/25/24 12:33 X1 ONE Labetalol HCl 10 mg 05/25/24 10:20 05/25/24 11:08 Labetalol Inj 5 Mg/Ml Vial 20 Ml IVP 06/24/24 10:12 10 mg Q4HR PRN Administration SBP > 120 Morphine Sulfate 1 mg 05/25/24 07:22 Morphine Sulf Inj 10 Mg/Ml Vial IVP 05/30/24 07:21 Q4HR PRN PAIN SCALE 7-10 (Severe Ondansetron HCl 4 mg 05/20/24 01:03 Ondansetron Inj 2 Mg/Ml Inj 2 Ml IV 06/19/24 01:02 Q6H PRN NAUSEA OR VOMITING Protocol Pantoprazole Sodium 40 mg 05/20/24 21:00 05/24/24 21:59 Pantoprazole Inj 40 Mg Vial IVP 06/19/24 20:59 40 mg HS MICAH Administration Pharmacy Consult 1 each 05/21/24 08:42 Pharmacy Renal Dose Adjustment 1 Ea XX 06/20/24 08:41 PRN PRN CONSULT Sennosides 1 tab 05/23/24 07:55 Senna Tablet PO 06/19/24 08:59 QDAY PRN constipation Protocol Plan Patient is a 54-year-old male with a past medical history of hypertension, chronic kidney disease stage III, history of congestive heart failure HFpEF- diastolic dysfunction stage I 50 to 55% (03/15/2023), and history of poly- substance use disorder (meth/THC) who was initially admitted for acute hypoxic respiratory failure and CHF exacerbation, then upgraded to ICU and downgraded on 05/22/2024. #Aortic Dissection, Type B [place] #Acute hypoxic respiratory Failure, improving #Pneumonia, improved #Aortic thrombus, less likely #Obstructive Shock (?) #Sepsis, secondary to pneumonia with end organ failure, Resolved. Etiology: Acute hypoxic respiratory failure is likely multi-factorial but CHF exacerbation likely contributing to hypoxemia on addmission given elevated BNP and chest xray on admission showing pulmonary vascular congestion. Sepsis secondary to pneumonia likely contributing to increased work of breathing given update Cxr showing bilateral pneumonia. Consider aspiration pneumonia and increasing Zosyn dosage. Sepsis noted overnight, with a Fever of 101, RR 23, with source of infection as noted in Cxr showing pneumonia. Although Well's criteria on admission was 0, concern for PE increased given possible thrombus noted on CTA neck. Current Well's criteria 3. On heparin drip for thrombus. Thrombus could also be causing respiratory failure leading to possible obstructive shock previous to ICU admission. 05/24/2024-CTA obtained showing aortic dissection, Sean type B. Patients SBP today between 120-140. Currently working on transferring patient. [facility] rejected patient as vascular surgery stated patient is hemodynamically stable. 05/24/2024: Patient continued to have elevated blood pressure Labetolol given X3 throught out the day and hydralazine x1 at 6 PM. Coreg increased to 25 mg PO BIDWM Plan -Coreg 25 mg PO BIDWM starting 05/25/24 @1700 -Labetalol IV 10 mg IV Q4HR PRN, for SBP >130 -Goal Systolic blood pressure at or near <120 with MAP >70 -If blood pressure remains high and HR <60, consult ICU-->consider nitroprusside -Holding Heparin, given possible hemorrhage into Psoas muscle -Type and screen placed. -Zosyn 3.375 g (05/22/2024-05/23/2024)-->Augmentin 500 BID (05/23--05/26) -blood culture-NO growth after 48 Hours. -Continue highflow support, until able to titrate down on FiO2 to reach [place] #CHF Exacerbation, imroving #CHF, HFpEF systolic dysfunction with massively dilated right atrium EF 50% #Pulmonary HTN #Cor Pulmonale #Hypertension #NSTEMI I vs II (?) #Hypertensive Emergency, Resolved #Cardiogenic Shock, Resolved. Etiology: Patient has an extensive history of CHF, systolic dysfunciton with an EF of 50% and elevated pulmonary artery pressure with atrial dilation. In the setting of methamphetamine use, this is likely the cause as both are highly associated with atrial dilation and contributing to CHF-->consider Cor Pulmonale as left ventricle appears normal size and EKG noted right ventricle hypertrophy. On admission, patient likely suffered cardiogenic show from possible vasopasm from meth us and multiple anti-hypertensive medication. Now presenting with troponemia with no ST elevation and likely NSTEMI type II but type I can not be rule out. Diagnostics: Echo: Systolic Dysfunciton, massively dilated right atrium, EF 50%, RVSP 60 mm Hg (moderate severe pulmonary hypertension) Troponin (05/22/2024) 2.926 and 2.721 EKG (05/21/2024): Sinus Tachycardia Current Output 1506; Weight 84.22 kg --> (05/25/2024) Output -1615, Wt 84.822 Kg-->93.667 Plan -Consider bladder US if need be overnight -Continue Bumex 1 mg IVP BID -Daily weight checks -Fluid Restricted -Diet, Na restricted -Keep >4 and Mg >2 -Cardiology Consulted, Dr. Pham, appreciate recommendations #Acute Metabolic Encepholopathy, improving #Hypoxemia vs Sepsis Etiology: Likely secondary to hypoxemia given CHF exacerbation on admission requiring intubation prior to being on floors and ischemic stroke as noted on MRI brain DDx: Poly-substance Use disorder secondary to methamphetamine as withdraw can present as hyperisonia or insominia vs Sepsis, improved -from CAP/Aspiration Diagnostics: -Head/Neck CTA (05/22/2024): Partially visualized descending thoracic aortic aneurysmal dilation w/ extensive thrombus, CTA recommend . NO significan neck arterial stenoses. No cerebral large vessel occlusions or thrombus. -MRI Brain (05/22/2024): Miltiple tiny embolic type infartcs left temporal lobe bilateral parietal lobes as above -Lipid Panetl Triglycerides 71, Cholesterol 92, LDL 49, HDL 29, -TSH 2.39 -Utox Positive THC and Meth -Chest x-ray: Mild Bibasilar Pneumonia -CT Head: negative for hemorrhage or mass effect. ASCVD 3.6% 10 year cardiovascular risk, consider moderate to high intensity, currently no Atorvastatin to be added Plan: -Heparin Drip, stopped given risk of bleeding into the Psoas muscle, possible hemorrhage -PT and PTT 05/24/2024 -Hypercoaguable panel by Dr. Olivares -LEONARDO placed by ICU -Avoid Hyperthermia and keep Euglycemic -Consider INESSA, currently no plans for INESSA -Speech Evaluation: Diet Renal- Dysphagia 3 -Physical Therapy:Home with Oxygen & Home Health -Out of Permissive HTN -consider bupropion if withdraw symptoms are present -Neurology Consulted, appreciate recommendations, neurology #LATASHA on CKD III-->CKD III #hypokalemia Etiology: Patient has a past medical history of CHF with a BUN/Cr ratio of 19, thus maybe pre-renal given shock and CHF exacerbation, but worsening CKD likely given intrinsic failure. Initially patient was GFR of 31, now GFR worsening at 27, thus progressing towards end renal failure thus dialysis maybe a possibility. DDx: CKD secondary to Intrinsci renal failure from Meth use as it has been to lead to chronic kidney disease vs post renal obstruction given BPH Diagnostics: (05/22/2024) BUN 54 Cr 2.7 BUN/Cr 19, GFR 27-->(05/25/2024) BUN 47 Cr 2.0 Plan: -Continue to replete electrolytes in setting of Bumex -Continue Bumex I mg IVP BID -Avoid nephrotoxins -renally dose medication -follow BUN & Cr -renal diet #Cirrhosis secondary to Alcohol Use #Hyperbilirubinemia #Mild Transamitis Etiolgoy: Given shock, during ICU admission, likely secondary to hepatic ischemia and complicated by CHF exacerbation causing cardio-hepatic damage. History of Alcohol use disorder likely contributing to cirrhosis. Less likely secondary to infectious cause as hepatitis is negative vs autoimmune condition. LEONARDO and GGT pending. Plan -GGT Pending -monitor AST/ALT -monitor total bili #BPH Plan -no acute intervention -holding Tamulosin Health Maintenance: Disp: Pt is currently admitted to floors for further management of acute hypoxic respiratory failure, awaiting possible transfer to [facility]. FEN: Renal Diet, Dysphagia 3 DVT: Holding Heparin, secondary to hemorrhage into psoas muscle Code: Full Code - The patient's plan was discussed with attending Dr. Jensen and senior residents Dr. Jefferson Barros MD PGY1 Internal Medicine Attending Provider Attestation/Addendum I have discussed and was present for the essential components of the history, physical examination, diagnosis, and treatment plan with the resident. I agree with the patient's care as documented by the resident and amended herein by me. Cj Jensen DO. Although this document has been carefully reviewed, there may still be some phonetic and other typographical errors. These errors are purely grammatical due to imperfections in the software program and should not be construed in any way to compromise the substance of the patient's medical care during this visit.
[2024-05-25] MEDS: POLYETHYLENE GLYCOL 17 GM PACKET PO (15:14)
[2024-05-25] MEDS: carVEDILOL 12.5 MG TABLET 25 MG PO (17:22)
[2024-05-25] MEDS: hydrALAZINE INJ 20 MG/ML VIAL 10 MG IV (18:39)
[2024-05-25] MEDS: PANTOPRAZOLE INJ 40 MG VIAL IVP (20:36)
--- NOTE | 2024-05-25 21:23 | PD.NEUROPROG ---
Documentation for date of: 05/25/24 Subjective Subjective Interval history: Patient was seen in telemetry with his family at the bedside. Patient denies any new symptoms. Exam - Neurology Vital Signs Temp Pulse Resp BP Pulse Ox O2 Del Method O2 Flow Rate 97.2 F 73 25 H 111/68 95 High Flow Nasal Cannula 20 05/25/24 20:00 05/25/24 20:36 05/25/24 20:03 05/25/24 20:36 05/25/24 20:03 05/25/24 20:00 05/25/24 20:03 FiO2 35 05/25/24 20:03 Narrative Exam GENERAL APPEARANCE: Well hydrated, well-nourished in no acute distress. HEENT: Normocephalic, atraumatic, extraocular movements intact. Pupils: Equal reacting to lightand accommodation, tympanic membranes are bilaterally intact. There is no bulge or retraction. Throat without erythema or exudate. Moist oral mucosa. NECK: Supple, no JVD or bruits. CARDIOVASULAR: Heart: S1, S2 heard, regular without S3-S4 or murmur no rubs or gallops. LUNGS/CHEST: Clear to auscultation bilaterally. No rails, rhonchi, or wheezing. Normal inspection. ABDOMEN: Soft, nontender, with normal bowel sounds. No pulsatile masses. No rebound, rigidity, or guarding. Normal inspection and palpation. EXTREMITIES: Normal inspection and palpation. No edema, clubbing or cyanosis. SKIN: Warm and dry without rashes. Normal inspection. MUSCULOSKELETAL: No cervical, thoracic, lumbar or midline bony tenderness. Normal inspection. NEURO: Alert, awake and oriented x1. Cranial nerves: II through XII grossly intact. Speech and language: Normal with no dysarthria or dysphasia. Motor system: Tone and bulk: Normal: Strength: moves all 4 extremities; No pronator drift noted. Deep tendon reflexes: 1+ bilaterally symmetrical. Plantar reflex: Downgoing bilaterally. Sensory system: Intact to pinprick sensation bilaterally. Coordination: Intact to [id number] and ppyj-[id number]-[id number] test bilaterally. No ataxia, no dysmetria, or dysdiadochokinesia noted. No intention tremors noted. Gait: Not tested. No signs of meningeal irritation noted. PSYCHIATRIC: Normal mood and affect. Objective Labs 05/25/24 04:19 05/25/24 04:19 Labs: Laboratory Results - last 24 hr 05/24/24 05/25/24 18:31 04:19 WBC 4.5 RBC 3.86 L Hgb 12.1 L Hct 34.4 L MCV 89 MCH 31.3 MCHC 35.2 RDW Std Deviation 45.7 H Plt Count 133 L Neut % (Auto) 56 Lymph % (Auto) 38 [place] % (Auto) 2 Eos % (Auto) 0 Baso % (Auto) 0 Neut # (Auto) 2.5 Lymph # (Auto) 1.7 [place] # (Auto) 0.1 Eos # (Auto) 0.0 Baso # (Auto) 0.0 Immature Gran # (Auto) 0.17 H Absolute Nucleated RBC 0.00 Immature Gran % 4 H Nucleated RBC % 0 APTT 32.2 D Sodium 131 L Potassium 3.4 Chloride 97 L Carbon Dioxide 25.0 Anion Gap 9 BUN 47 H Creatinine 2.0 H Estim Creat Clear Calc 49.6 L eGFR 39 L BUN/Creatinine Ratio 24 H Glucose 85 Calculated Osmolality 273 L Calcium 8.0 L Corrected Calcium 8.6 Phosphorus 2.6 Magnesium 2.1 Total Bilirubin 2.7 H AST 137 H ALT 114 H Alkaline Phosphatase 72 Total Protein 6.2 Albumin 3.2 L Globulin 3.0 Albumin/Globulin Ratio 1.1 L Blood Type AB Positive Antibody Screen NEGATIVE ABG Interpretation ABG results: 05/20/24 05/21/24 05/22/24 17:52 04:45 00:39 ABG pH 7.36 7.42 7.53 H D ABG pCO2 33 44 D 38 ABG pO2 375 H 107 D 43 L* D ABG HCO3 19 L 29 H 31 H ABG O2 Saturation 101 H 98 80 L ABG Base Excess -6 L 3 8 H 05/22/24 05/23/24 00:56 19:04 ABG pH 7.50 H 7.55 H ABG pCO2 40 34 ABG pO2 64 L D 53 L* ABG HCO3 31 H 30 H ABG O2 Saturation 93 89 L ABG Base Excess 7 H 8 H Assessment & Plan Additional Assessment & Plan Additional Plan: 4 yrs old with PMH of HTN, ckd. heart failure with preserved EF , meth use was admitted on 05/19/20 for HTN emergency and man who presented with hypertensive emergency and Acute hypoxic respi failure . rapid respons was called over night , for change in mentation and neurology was consulted. Thrombolytic was not recommended by tele neuro last night because unclear of his last well known . head ct was negative for acute bleed. ? ?#Embolic infracts lt temporal bilatral paietal lobes . -sudden change in mentation overnight, pt is still obtunded, is on high flow -Head ct -Negative for acute hemorrhage, mass effect or midline shift -head/neck CTA- Acute left sphenoid sinusitis,Partially visualized descending thoracic aortic aneurysmal dilatation with extensive thrombus, recommend CTA chest post intravenous contrast follow-up,No significant neck arterial stenoses,No cerebral large vessel occlusions or thrombus -Echo on 05/20 showed Small LV size, moderate LVH with low normal ejection fraction at around 50% Flattened interatrial septum in both systole and diastole indicating both RV pressure and volume overload. Severely dilated right ventricle with moderate RV systolic dysfunction and massively dilated right atrium. Moderate to severe TR and estimated RVSP around 60 mmHg indicating moderate to severe pulmonary hypertension, Trace MR and dilated IVC -MRI- Multiple tiny embolic type infarcts left temporal lobe bilateral parietal lobes -Lipid pannel wnl ,TSH 2.39 ,ammonia 30 -P discontinue heparin, start him on aspirin and Plavix with statin.
[2024-05-26] VITALS (24 sets, daily range): BP systolic 121–161; BP diastolic 66–104; PULSE 61–79; RESP 17–263; TEMP 36.2–37.1; O2SAT 88–93; BMI 27.8
[2024-05-26] MEDS: LABETALOL INJ 5 MG/ML VIAL 20 ML 10 MG IVP ×5 (00:34→23:23)
[2024-05-26] MEDS: LABETALOL INJ 5 MG/ML VIAL 20 ML 20 MG IVP (04:06)
[2024-05-26 06:16] LABS: Basophils % (Auto) 0 % (0-2.5); Eosinophils % (Auto) 0 % (0-10); Hematocrit 36.3 % (41.0-53.0); Hemoglobin 12.7 g/dL (13.5-16.0); Immature Granulocytes % (Auto) 1 % (0-0); Immature Granulocytes Auto 0.07 Thou/mm3 (0.00-0.00); Lymphocytes # (Auto) 1.9 Thou/mm3 (1.0-4.8); Lymphocytes % (Auto) 30 % (10-50); Mean Corpuscular Hemoglobin 31.4 pg (25.0-35.0); Mean Corpuscular Volume 90 fL (80-100); Monocytes # (Auto) 0.8 Thou/mm3 (0.0-0.8); Monocytes % (Auto) 12 % (0-12); Neutrophils # (Auto) 3.7 Thou/mm3 (1.8-7.7); Neutrophils % (Auto) 57 % (37-80); Nucleated Red Blood Cell % 0 /100 WBC (0); Platelet Count 177 Thou/mm3 (140-440); RDW Standard Deviation 45.9 fL (35.1-43.9); Red Blood Count 4.04 Miln/mm3 (4.50-5.90); White Blood Count 6.4 Thou/mm3 (3.8-10.6)
[2024-05-26 06:58] LABS: Alanine Aminotransferase 114 U/L (10-49); Albumin, Serum 3.5 gm/dL (3.5-5.0); Albumin/Globulin Ratio 1.1 (1.2-2.2); Alkaline Phosphatase 82 U/L (46-116); Anion Gap 8 (7-16); Aspartate Amino Transferase 166 U/L (0-34); BUN/Creatinine Ratio 23 Ratio (12-20); Bilirubin,Total 2.5 mg/dL (0.3-1.2); Blood Urea Nitrogen 39 mg/dL (9-23); Calcium 8.2 mg/dL (8.3-10.6); Calcium (Corrected) 8.6 mg/dL (8.5-10.1); Carbon Dioxide 26.5 mMol/L (20.0-31.0); Chloride 100 mMol/L (98-107); Creatinine (Component) 1.7 mg/dL (0.6-1.3); Estimated Creatinine Clearance 58.3 mL/min (>60); Globulin 3.3 gm/dL (2.3-3.5); Glucose 110 mg/dL (74-106); Magnesium 1.9 mg/dL (1.6-2.6); Osmolality,Calculated 278 (275-295); Phosphorous 2.2 mg/dL (2.4-5.1); Potassium 3.6 mMol/L (3.4-5.1); Sodium 134 mMol/L (136-145); Total Protein 6.8 gm/dL (5.7-8.2); eGFR 47 See Note
[2024-05-26] MEDS: carVEDILOL 12.5 MG TABLET 25 MG PO (07:24)
--- NOTE | 2024-05-26 08:22 | PD.RESPRO ---
Documentation for date of: 05/26/24 Subjective Subjective Interval history: Patient was seen at bedside this morning. No overnight events. Patient still on high flow nasal cannula. Patient is AO x 3 and more awake and alert today. Completed 48 hrs of Heparin For patient's aortic dissection recommend to keep BP below 120s. Can start amlodipine 10mg qday, continue Creg 25mg BID, and continue Nifedipine 30 qday. Recommended to call the vascular surgeon on-call for the hospital or at an outside hospital and transferred to a tertiary care center for further interventions, but was unsuccesful as they stated patient did not need any emergent surgical procedure. Recommend to discontinue Labetolol 100mg BID. Recommend to titrate Coreg if BP remains above 120s. Recommend to continue aspirin, plavix, and statin as there is no need for anticoagulation at the present time. . BP was in the 140s overnight and in the morning, recommend to keep below 120s. Fo patient's HF. Patient had total balance of -1.5 L in the past 24 hours. Can continue Bumex 1mg BID as kidney function showed improvement Patient's kidney function seems to be improving with BUN 47 and creatinine 2 Potassium 3.6 and magnesium 1.9 today, recommend to keep potassium and magnesium above 4 and 2 to avoid any further arrhythmias. Patient had stroke alert called due to changes in mentation and brain MRI with MRA showed multiple tiny embolic infarcts of the left temporal lobe and bilateral parietal lobes. 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 Will follow-up on neurology recommendations on anticoagulation. Echo on 05/20/2024 had the following findings Small LV size, moderate LVH with low normal ejection fraction at around 50%. Flattened interatrial septum in both systole and diastole indicating both RV pressure and volume overload. Severely dilated right ventricle with moderate RV systolic dysfunction and massively dilated right atrium Moderate to severe TR and estimated RVSP around 60 mmHg indicating moderate to severe pulmonary hypertension Trace MR and dilated IVC Exam Vital Signs Temp Pulse Resp BP Pulse Ox O2 Del Method O2 Flow Rate 97.6 F 73 31 H 142/87 H 92 L High Flow Nasal Cannula 15 05/26/24 04:00 05/26/24 07:24 05/26/24 06:35 05/26/24 07:24 05/26/24 06:35 05/26/24 04:00 05/26/24 06:35 FiO2 40 05/26/24 06:35 Narrative Exam General:AO x 3, more awake and alert, disheveled Eyes: PERRL, EOMI. icteric, vision grossly intact. Eyes bulging Ears: No ear pain, no ear discharge, Hearing grossly intact. Nose: No nasal discharge. Mouth/Throat: dry mucous membranes, no redness, no lesions. Neck: Neck supple, non-tender, no cervical lymphadenopathy. Lungs: Decreased in lower lobes, No accessory muscle use. Cardio: Normal S1/S2, regular rhythm, no murmurs, no JVD Abdomen: Soft, non-tender, no palpable masses, peristalsis present, no guarding or rebound. Extremities: Symmetrical, no significant deformities, 1+ peripheral edema , non-tender, peripheral pulses presents. Skin: No rashes, no lesions, warm to touch. Neuro: No focal neurological deficits. motor and sensory intact Objective Labs 05/26/24 05:05 05/26/24 05:05 Labs: Laboratory Results - last 24 hr 05/26/24 05:05 WBC 6.4 D RBC 4.04 L Hgb 12.7 L Hct 36.3 L MCV 90 MCH 31.4 MCHC 35.0 RDW Std Deviation 45.9 H Plt Count 177 D Neut % (Auto) 57 Lymph % (Auto) 30 [place] % (Auto) 12 Eos % (Auto) 0 Baso % (Auto) 0 Neut # (Auto) 3.7 Lymph # (Auto) 1.9 [place] # (Auto) 0.8 Eos # (Auto) 0.0 Baso # (Auto) 0.0 Immature Gran # (Auto) 0.07 H Absolute Nucleated RBC 0.00 Immature Gran % 1 H Nucleated RBC % 0 Sodium 134 L Potassium 3.6 Chloride 100 Carbon Dioxide 26.5 Anion Gap 8 BUN 39 H Creatinine 1.7 H Estim Creat Clear Calc 58.3 L eGFR 47 L BUN/Creatinine Ratio 23 H Glucose 110 H Calculated Osmolality 278 Calcium 8.2 L Corrected Calcium 8.6 Phosphorus 2.2 L Magnesium 1.9 Total Bilirubin 2.5 H AST 166 H ALT 114 H Alkaline Phosphatase 82 Total Protein 6.8 Albumin 3.5 Globulin 3.3 Albumin/Globulin Ratio 1.1 L ABG Interpretation ABG results: 05/20/24 05/21/24 05/22/24 17:52 04:45 00:39 ABG pH 7.36 7.42 7.53 H D ABG pCO2 33 44 D 38 ABG pO2 375 H 107 D 43 L* D ABG HCO3 19 L 29 H 31 H ABG O2 Saturation 101 H 98 80 L ABG Base Excess -6 L 3 8 H 05/22/24 05/23/24 00:56 19:04 ABG pH 7.50 H 7.55 H ABG pCO2 40 34 ABG pO2 64 L D 53 L* ABG HCO3 31 H 30 H ABG O2 Saturation 93 89 L ABG Base Excess 7 H 8 H Quality Measures Quality Measures none Assessment & Plan Assessment Current Active Medications: Generic Name Dose Route Start Last Admin Trade Name Freq PRN Reason Stop Dose Admin Acetaminophen 650 mg 05/20/24 01:03 05/24/24 23:11 Acetaminophen 325 Mg Tablet PO 06/19/24 01:02 650 mg Q6H PRN Administration Pain 1-3 or Fever >100.3 Hydrocodone Bitart/Acetaminophen 1 tab 05/25/24 07:22 Hydrocodone/Apap 5/325 Tablet PO 05/30/24 07:21 Q4HR PRN PAIN SCALE 4-6 (Moderate Amoxicillin/Clavulanate Potassium 500 mg 05/24/24 21:00 05/25/24 20:37 Amoxicillin/Pot Clav 500 Mg Tablet PO 05/31/24 20:59 500 mg BID MICAH Administration Aspirin 81 mg 05/26/24 09:00 Aspirin Ec 81 Mg Tabec PO 06/25/24 08:59 QDAY MICAH Bumetanide 1 mg 05/24/24 13:15 05/25/24 20:36 Bumetanide Inj 0.25 Mg/Ml Vial 4 Ml IVP 06/23/24 13:14 1 mg BID MICAH Administration Carvedilol 25 mg 05/25/24 17:15 05/26/24 07:24 Carvedilol 12.5 Mg Tablet PO 06/24/24 17:14 25 mg BIDWM MICAH Administration Clopidogrel Bisulfate 75 mg 05/26/24 09:00 Clopidogrel Bisulfate 75 Mg Tablet PO 06/16/24 08:59 QDAY MICAH Magnesium Sulfate 2 gm in 50 mls @ 25 mls/hr 05/26/24 07:43 Magnesium Sulfate Ivpb IV 05/26/24 09:42 X1 ONE Labetalol HCl 10 mg 05/25/24 10:20 05/25/24 23:59 Labetalol Inj 5 Mg/Ml Vial 20 Ml IVP 06/24/24 10:12 10 mg Q4HR PRN Administration SBP > 120 Morphine Sulfate 1 mg 05/25/24 07:22 Morphine Sulf Inj 10 Mg/Ml Vial IVP 05/30/24 07:21 Q4HR PRN PAIN SCALE 7-10 (Severe Ondansetron HCl 4 mg 05/20/24 01:03 Ondansetron Inj 2 Mg/Ml Inj 2 Ml IV 06/19/24 01:02 Q6H PRN NAUSEA OR VOMITING Protocol Pantoprazole Sodium 40 mg 05/20/24 21:00 05/25/24 20:36 Pantoprazole Inj 40 Mg Vial IVP 06/19/24 20:59 40 mg HS MICAH Administration Pharmacy Consult 1 each 05/21/24 08:42 Pharmacy Renal Dose Adjustment 1 Ea XX 06/20/24 08:41 PRN PRN CONSULT Polyethylene Glycol 17 gm 05/25/24 14:45 05/25/24 15:14 Polyethylene Glycol 17 Gm Packet PO 06/24/24 14:44 17 gm QDAY MICAH Administration Sennosides 1 tab 05/23/24 07:55 Senna Tablet PO 06/19/24 08:59 QDAY PRN constipation Protocol Plan 54-year-old male with past medical history of meth use, HFpEF (50 to 55% on 2022), CKD, and hypertension was admitted to the hospital on 05/20/2024 due to acute decompensated heart failure exacerbation. 1. Sean B Aortic dissection -CT chest abdomen and pelvis was completed today and showed Sean type B aortic dissection beginning distal to the left subclavian artery and extending into the upper abdomen but ending prior to the origin of celiac, superior mesenteric artery axis. 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 Plan: -Appears to be chronic and recommend strict blood pressure control to keep systolic blood pressure less than 120 mmHg at all the times. -recommend to keep BP below 120s. Can start amlodipine 10mg qday, continue Creg 25mg BID, and continue Nifedipine 30 qday. -Recommend to discontinue Labetolol 100mg BID. -Recommend to titrate Coreg if BP remains above 120s. -Recommend to continue aspirin, plavix, and statin as there is no need for anticoagulation at the present time. 2. Acute decompensated heart failure exacerbation (EF 50 to 55% on 2022) Patient came in with shortness of breath and bilateral lower extremity swelling ? Initial BNP was more than 3280 ? 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 Patient clinically looks fluid overloaded and having shortness of breath with having to stop in between sentences. -Patient off pressors and maintaining good BP ?Echo on 03/15/2023 had the following findings: Normal LV size and function. Moderate LVH. Diastolic dysfunction stage I. Estimated EF 50 to 55%. Normal RV size and function. Trace TR. -Echo on 05/20/2024 had the following findings Small LV size, moderate LVH with low normal ejection fraction at around 50%. Flattened interatrial septum in both systole and diastole indicating both RV pressure and volume overload. Severely dilated right ventricle with moderate RV systolic dysfunction and massively dilated right atrium Moderate to severe TR and estimated RVSP around 60 mmHg indicating moderate to severe pulmonary hypertension Trace MR and dilated IVC Plan: ?Can continue Bumex 1mg BID as kidney function showed improvement -Recommend to place patient on high intensity statin and aspirin ? Strict WES's ? Daily weights ?Fluid restrictions ?Low-sodium diet ? Recommend to strictly replace potassium and magnesium to keep above 4 and 2 respectively to avoid any further arrhythmias 3. Hypertensive emergency 4. NSTEMI ?Patient's initial blood pressure was 217/126 ? Troponins were elevated at 0.287 on admission and up trended to 0.567 ?EKG did not show any acute ST changes ?NSTEMI most likely type II in the setting of acute decompensated heart failure exacerbation and hypertensive emergency Plan: -Recommend no further troponins. -Completed 48 hours of heparin -Recommend to continue patient on high intensity statin, Plavix, and aspirin -Recommend to F/U nephrology recs -Recommend vasopressor support as needed as patient most likely was in septic versus cardiogenic shock. 5. Acute embolic infarct of L temporal lobe and ALEX parietal lobes -Primary care team wanted patient to undergo INESSA due to an acute stroke and thrombus in the descending aorta, but at this time patient is stable hemodynamically and could possibly decline during the procedure. ?Continue current management as per primary care team 6. Cirrhosis 7. Congestive hepatopathy 8. Ascites 9. Transaminitis 10. Hyperbilirubinemia ?Abdomen/pelvis CT shows cirrhosis and ascites ? Abdominal ultrasound showed cirrhosis ? AST 112, ALT 84 and 2 bilirubin 3.9 on admission ?Presents most likely on congestive hepatopathy most likely secondary to congestive heart failure ?Continue current management as per primary care team 11. CKD ? Initial creatinine was 2.1 and BUN 26 on admission ?Could be secondary to cardiorenal syndrome ? Continue current management as per primary care team 12. Polysubstance use (meth and THC) ? U tox was positive for meth and THC ? Continue current management as per primary care team Continue rest of management as per primary team. We are grateful to be able to participate in Mr. De's care. Thank you for the consult Plan of care discussed with attending Cane Weigher, Dr Vero Jang MD PGY-1 Attending Provider Attestation/Addendum I have personally seen and examined the patient separately on the above date of service and discussed the plan of care with the resident. I reviewed the resident Dr. Pelayo consultation progress note and agree with the resident findings and plan in the note above and have also edited the documentation to reflect my findings and plan. Remy Pham M.D. Interventional Cardiology
[2024-05-26] MEDS: Magnesium Sulfate 2 GM Ivpb 2 GM/50 ML BAG IV (09:16)
[2024-05-26] MEDS: AMOXICILLIN/POT CLAV 500 MG TABLET PO ×2 (09:16→20:31)
[2024-05-26] MEDS: NIFEdipine XL 30 MG TABCR PO (09:17)
[2024-05-26] MEDS: ASPIRIN EC 81 MG TABEC PO (09:17)
[2024-05-26] MEDS: CLOPIDOGREL BISULFATE 75 MG TABLET PO (09:17)
[2024-05-26] MEDS: POTASSIUM CHLORIDE 20 mEq TABCR 40 MEQ PO (09:17)
[2024-05-26] MEDS: NAPH,KPH MBDB 1 PACKET (1.5 GM) PO (09:17)
[2024-05-26] MEDS: BUMETANIDE INJ 0.25 MG/ML VIAL 4 ML 1 MG IVP ×2 (09:17→20:31)
--- NOTE | 2024-05-26 09:26 | ESPR_ITS ---
Documentation for date of: 05/26/24 Subjective Subjective Interval history: Patient was seen and examined at the bedside. Patient was feeling depressed and sad however was cooperative and said that he feels better than previous days. He was seen on high flow nasal cannula currently on settings 15 L and 40% FiO2. Overnight, patient received labetalol 60 mg IV for blood pressure management. Vitals showed blood pressure SBP in 140s and afebrile. He has been saturating 91% on high flow nasal cannula. Labs revealed white count within normal limits hemoglobin stable at 12.7. Chemistry panelShowed sodium 134 and potassium 3.6. Kidney function showed slight improvement with BUN 39 and creatinine 1.7. Phosphorus 2.2 and magnesium 1.9. Mildly elevated transaminases. We curb sided with Dr. Berger, college president for management of blood pressure given patient's current history of pulmonary arterial hypertension. Per recommendations we added spironolactone 25 mg once daily and reduced dose of labetalol 50 mg twice daily and continuing nifedipine XL 30 mg once daily to keep blood pressure goal SBP 120 mmHg. Continuing aspirin Plavix and statin per neurology recommendations. Discontinued Coreg. Continuing IV diuresis with Bumex 1 mg twice daily as patient is showing good diuresis output with negative balance of 1.4 L. Goal of net negative is 1-1.5 L. Cardiology recommendations are pending. Patient will need outpatient follow-up with Dr. Hauser, vascular surgeon. Family was updated regarding the plan. All labs and orders were reviewed. Exam Vital Signs Temp Pulse Resp BP Pulse Ox O2 Del Method O2 Flow Rate 97.6 F 68 31 H 121/66 92 L High Flow Nasal Cannula 15 05/26/24 04:00 05/26/24 09:17 05/26/24 06:35 05/26/24 09:17 05/26/24 06:35 05/26/24 04:00 05/26/24 06:35 FiO2 40 05/26/24 06:35 Narrative Exam General: Patient is awake and in no acute distress. Conversational and non-toxic appearing. Saturating 90% on high flow nasal cannula. HEENT: Normocephalic, atraumatic, mucous membranes moist. Heart: Regular rate and rhythm, no murmurs. Lungs: Bilateral mild decreased breath sounds on auscultation. Abdomen: Soft, nondistended, nontender, positive bowel sounds. ?No guarding or rebound tenderness. Neurologic: Alert and oriented x3, no gross neurological deficit, and patient able to move all 4 extremities. Extremities: Chronic venous stasis changes on both lower extremities. No extremity edema noticed. Skin: No rash or ecchymoses. Objective Labs 05/26/24 05:05 05/26/24 05:05 Labs: Laboratory Results - last 24 hr 05/26/24 05:05 WBC 6.4 D RBC 4.04 L Hgb 12.7 L Hct 36.3 L MCV 90 MCH 31.4 MCHC 35.0 RDW Std Deviation 45.9 H Plt Count 177 D Neut % (Auto) 57 Lymph % (Auto) 30 Piute % (Auto) 12 Eos % (Auto) 0 Baso % (Auto) 0 Neut # (Auto) 3.7 Lymph # (Auto) 1.9 Piute # (Auto) 0.8 Eos # (Auto) 0.0 Baso # (Auto) 0.0 Immature Gran # (Auto) 0.07 H Absolute Nucleated RBC 0.00 Immature Gran % 1 H Nucleated RBC % 0 Sodium 134 L Potassium 3.6 Chloride 100 Carbon Dioxide 26.5 Anion Gap 8 BUN 39 H Creatinine 1.7 H Estim Creat Clear Calc 58.3 L eGFR 47 L BUN/Creatinine Ratio 23 H Glucose 110 H Calculated Osmolality 278 Calcium 8.2 L Corrected Calcium 8.6 Phosphorus 2.2 L Magnesium 1.9 Total Bilirubin 2.5 H AST 166 H ALT 114 H Alkaline Phosphatase 82 Total Protein 6.8 Albumin 3.5 Globulin 3.3 Albumin/Globulin Ratio 1.1 L ABG Interpretation ABG results: 05/20/24 05/21/24 05/22/24 17:52 04:45 00:39 ABG pH 7.36 7.42 7.53 H D ABG pCO2 33 44 D 38 ABG pO2 375 H 107 D 43 L* D ABG HCO3 19 L 29 H 31 H ABG O2 Saturation 101 H 98 80 L ABG Base Excess -6 L 3 8 H 05/22/24 05/23/24 00:56 19:04 ABG pH 7.50 H 7.55 H ABG pCO2 40 34 ABG pO2 64 L D 53 L* ABG HCO3 31 H 30 H ABG O2 Saturation 93 89 L ABG Base Excess 7 H 8 H Quality Measures Quality Measures VTE prophylaxis (Holding heparin ) Assessment & Plan Assessment Current Active Medications: Generic Name Dose Route Start Last Admin Trade Name Freq PRN Reason Stop Dose Admin Acetaminophen 650 mg 05/20/24 01:03 05/24/24 23:11 Acetaminophen 325 Mg Tablet PO 06/19/24 01:02 650 mg Q6H PRN Administration Pain 1-3 or Fever >100.3 Hydrocodone Bitart/Acetaminophen 1 tab 05/25/24 07:22 Hydrocodone/Apap 5/325 Tablet PO 05/30/24 07:21 Q4HR PRN PAIN SCALE 4-6 (Moderate Amoxicillin/Clavulanate Potassium 500 mg 05/24/24 21:00 05/26/24 09:16 Amoxicillin/Pot Clav 500 Mg Tablet PO 05/31/24 20:59 500 mg BID MICAH Administration Aspirin 81 mg 05/26/24 09:00 05/26/24 09:17 Aspirin Ec 81 Mg Tabec PO 06/25/24 08:59 81 mg QDAY MICAH Administration Bumetanide 1 mg 05/24/24 13:15 05/26/24 09:17 Bumetanide Inj 0.25 Mg/Ml Vial 4 Ml IVP 06/23/24 13:14 1 mg BID MICAH Administration Clopidogrel Bisulfate 75 mg 05/26/24 09:00 05/26/24 09:17 Clopidogrel Bisulfate 75 Mg Tablet PO 06/16/24 08:59 75 mg QDAY MICAH Administration Magnesium Sulfate 2 gm in 50 mls @ 25 mls/hr 05/26/24 07:43 05/26/24 09:16 Magnesium Sulfate Ivpb IV 05/26/24 09:42 25 mls/hr X1 ONE Administration Labetalol HCl 10 mg 05/25/24 10:20 05/25/24 23:59 Labetalol Inj 5 Mg/Ml Vial 20 Ml IVP 06/24/24 10:12 10 mg Q4HR PRN Administration SBP > 120 Labetalol HCl 100 mg 05/26/24 19:00 Labetalol 100 Mg Tablet PO 06/25/24 18:59 Q12H MICAH Morphine Sulfate 1 mg 05/25/24 07:22 Morphine Sulf Inj 10 Mg/Ml Vial IVP 05/30/24 07:21 Q4HR PRN PAIN SCALE 7-10 (Severe Nifedipine 30 mg 05/26/24 09:00 12/22/24 09:17 Nifedipine Xl 30 Mg Tabcr PO 06/25/24 08:59 30 mg QDAY MICAH Administration Ondansetron HCl 4 mg 05/20/24 01:03 Ondansetron Inj 2 Mg/Ml Inj 2 Ml IV 06/19/24 01:02 Q6H PRN NAUSEA OR VOMITING Protocol Pantoprazole Sodium 40 mg 05/20/24 21:00 05/25/24 20:36 Pantoprazole Inj 40 Mg Vial IVP 06/19/24 20:59 40 mg HS MICAH Administration Pharmacy Consult 1 each 05/21/24 08:42 Pharmacy Renal Dose Adjustment 1 Ea XX 06/20/24 08:41 PRN PRN CONSULT Polyethylene Glycol 17 gm 05/25/24 14:45 05/26/24 09:18 Polyethylene Glycol 17 Gm Packet PO 06/24/24 14:44 Not Given QDAY MICAH Sennosides 1 tab 05/23/24 07:55 Senna Tablet PO 06/19/24 08:59 QDAY PRN constipation Protocol Plan This patient is a 54-year-old male with a past medical history of hypertension, chronic kidney disease stage III, history of congestive heart failure HFpEF- diastolic dysfunction stage I 50 to 55% (03/15/2023), and history of poly- substance use disorder (meth/THC) who was initially admitted for acute hypoxic respiratory failure and CHF exacerbation, then upgraded to ICU and downgraded on 05/22/2024. #Aortic Dissection, Type B Sean #Acute hypoxic respiratory Failure, improving #Pneumonia, improved #Aortic thrombus, less likely #Obstructive Shock (?) #Sepsis, secondary to pneumonia with end organ failure, Resolved. Etiology: Acute hypoxic respiratory failure is likely multi-factorial but CHF exacerbation likely contributing to hypoxemia on addmission given elevated BNP and chest xray on admission showing pulmonary vascular congestion. Sepsis secondary to pneumonia likely contributing to increased work of breathing given update Cxr showing bilateral pneumonia. Consider aspiration pneumonia and increasing Zosyn dosage. Sepsis noted overnight, with a Fever of 101, RR 23, with source of infection as noted in Cxr showing pneumonia. Although Well's criteria on admission was 0, concern for PE increased given possible thrombus noted on CTA neck. Current Well's criteria 3. On heparin drip for thrombus. Thrombus could also be causing respiratory failure leading to possible obstructive shock previous to ICU admission. 05/24/2024-CTA obtained showing aortic dissection, [place] type B. Patients SBP today between 120-140. Currently working on transferring patient. [facility] rejected patient as vascular surgery stated patient is hemodynamically stable. 05/24/2024: Patient continued to have elevated blood pressure Labetolol given X3 throught out the day and hydralazine x1 at 6 PM. Coreg increased to 25 mg PO BIDWM 05/26/2024: Patient was given labetalol IV 60 mg overnight for blood pressure management. Discontinued Coreg today this morning. 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 Berger, college president for patient's pulmonary arterial hypertension and per recommendation started on spironolactone 25 mg once daily. Plan ? Started labetalol 50 mg twice daily, nifedipine XL 30 mg once daily and added spironolactone 25 mg once daily -Discontinued Coreg -Labetalol IV 10 mg IV Q4HR PRN, for SBP >130 -Goal Systolic blood pressure at or near <120 with MAP >70 -If blood pressure remains high and HR <60, consult ICU-->consider nitroprusside -Holding Heparin, given possible hemorrhage into Psoas muscle -Type and screen placed. -Zosyn 3.375 g (05/22/2024-05/23/2024)-->Augmentin 500 BID (05/23--05/26) -blood culture-NO growth after 48 Hours. -Continue highflow support, until able to titrate down on FiO2 to reach [place] #CHF Exacerbation, imroving #CHF, HFpEF systolic dysfunction with right heart failure EF 50% #Pulmonary HTN #Cor Pulmonale #Hypertension #NSTEMI I vs II (?) #Hypertensive Emergency, Resolved #Cardiogenic Shock, Resolved. Etiology: Patient has an extensive history of CHF, systolic dysfunciton with an EF of 50% and elevated pulmonary artery pressure with atrial dilation. In the setting of methamphetamine use, this is likely the cause as both are highly associated with atrial dilation and contributing to CHF-->consider Cor Pulmonale as left ventricle appears normal size and EKG noted right ventricle hypertrophy. On admission, patient likely suffered cardiogenic show from possible vasopasm from meth us and multiple anti-hypertensive medication. Now presenting with troponemia with no ST elevation and likely NSTEMI type II but type I can not be rule out. Diagnostics: Echo: Systolic Dysfunciton, massively dilated right atrium, EF 50%, RVSP 60 mm Hg (moderate severe pulmonary hypertension) Troponin (05/22/2024) 2.926 and 2.721 EKG (05/21/2024): Sinus Tachycardia Current output:Urine output: 2200 mL with negative balance of 1400 mL. Weight: 93 kg. Patient needs standing weight every day for accurate measurements Plan -Continue diuresis with Bumex 1 mg IVP BID -Daily weight checks in standing position -Fluid Restricted -Diet, Na restricted -Keep >4 and Mg >2 -Cardiology Consulted, Dr. Pham, appreciate recommendations -Consider bladder US if need be overnight #Acute Metabolic Encepholopathy, improved #Bilateral embolic stroke #Hypoxemia vs Sepsis vs stroke Etiology: Likely secondary to hypoxemia given CHF exacerbation on admission requiring intubation prior to being on floors and ischemic stroke as noted on MRI brain DDx: Poly-substance Use disorder secondary to methamphetamine as withdraw can present as hyperisonia or insominia vs Sepsis, improved -from CAP/Aspiration Diagnostics: -Head/Neck CTA (05/22/2024): Partially visualized descending thoracic aortic aneurysmal dilation w/ extensive thrombus, CTA recommend . NO significan neck arterial stenoses. No cerebral large vessel occlusions or thrombus. -MRI Brain (05/22/2024): Multiple tiny embolic type infartcs left temporal lobe bilateral parietal lobes as above -Lipid Panetl Triglycerides 71, Cholesterol 92, LDL 49, HDL 29, -TSH 2.39 -Utox Positive THC and Meth -Chest x-ray: Mild Bibasilar Pneumonia -CT Head: negative for hemorrhage or mass effect. ASCVD 3.6% 10 year cardiovascular risk, consider moderate to high intensity, currently no Atorvastatin to be added Plan: ? Continuing aspirin, Plavix and statin therapy per neurology recommendation -Heparin Drip, stopped given risk of bleeding into the Psoas muscle, possible hemorrhage -Hypercoaguable panel by Dr. Olivares -LEONARDO placed by ICU -Avoid Hyperthermia and keep Euglycemic -currently no plans for INESSA -Speech Evaluation: Diet Renal- Dysphagia 3 -Physical Therapy:Home with Oxygen & Home Health -Out of Permissive HTN -consider bupropion if withdraw symptoms are present -Neurology Consulted, appreciate recommendations, neurology #LATASHA on CKD III-->CKD III #hypokalemia Etiology: Patient has a past medical history of CHF with a BUN/Cr ratio of 19, thus maybe pre-renal given shock and CHF exacerbation, but worsening CKD likely given intrinsic failure. Initially patient was GFR of 31, now GFR worsening at 27, thus progressing towards end renal failure thus dialysis maybe a possibility. DDx: CKD secondary to Intrinsci renal failure from Meth use as it has been to lead to chronic kidney disease vs post renal obstruction given BPH Diagnostics: 05/28: BUN 39, creatinine 1.7, GFR 47 Plan: -Continue to replete electrolytes in setting of Bumex -Continue Bumex I mg IVP BID -Avoid nephrotoxins -renally dose medication -follow BUN & Cr -renal diet # Electrolyte disturbance # Hypophosphatemia ? Phosphorus 2.2, 05/26 Plan ? Add Neutra-Phos # Depression ? Patient was feeling sad and depressive. Plan: ? Started sertraline 25 mg at bedtime #Cirrhosis secondary to Alcohol Use #Hyperbilirubinemia #Mild Transamitis Etiolgoy: Given shock, during ICU admission, likely secondary to hepatic ischemia and complicated by CHF exacerbation causing cardio-hepatic damage. History of Alcohol use disorder likely contributing to cirrhosis. Less likely secondary to infectious cause as hepatitis is negative vs autoimmune condition. LEONARDO and GGT pending. Plan -GGT Pending -monitor AST/ALT -monitor total bili #BPH Plan -no acute intervention -holding Tamulosin Health Maintenance: FEN: Renal Diet, Dysphagia 3 DVT: Holding Heparin, secondary to hemorrhage into psoas muscle Code: Full Code Disp: Pt is currently admitted to floors for further management of acute hypoxic respiratory failure due to right heart failure, aortic dissection type B [place] and ischemic embolic stroke. Patient was seen and discussed with attending physician, DO Dr. Evette Perez MD, PGY 2 Attending Provider Attestation/Addendum I have discussed and was present for the essential components of the history, physical examination, diagnosis, and treatment plan with the resident. I agree with the patient's care as documented by the resident and amended herein by me. Cj Jensen DO. Although this document has been carefully reviewed, there may still be some phonetic and other typographical errors. These errors are purely grammatical due to imperfections in the software program and should not be construed in any way to compromise the substance of the patient's medical care during this visit.
--- NOTE | 2024-05-26 09:35 | PD.RESPRO ---
Documentation for date of: 05/26/24 Subjective Subjective Interval history: Mr. De is a 54-year-old male with past medical history of hypertension, CKD stage IIIb, HFpEF, methamphetamine use was admitted for acute hypoxic respiratory failure due to CHF exacerbation and hypertensive emergency. Patient was upgraded to ICU due to altered mental status due to hypotension and hypoxia. Therefore patient ended up getting intubated for airway protection and started on Levophed during ICU course. Patient was given reversal for calcium channel prasanna with calcium chloride x 3 after which patient's blood pressure showed improvement. 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 certified retinal angiographer today 05/22/24 patient had a stroke alert called for change in mental status GCS was 12, teleneuro assessed the patient and recommended further investigations. Patient's head and neck CTA was significant for descending thoracic aorta aneurysmal dilation with extensive thrombus and radiology recommended CTA chest post IV contrast follow-up. Patient is currently on Bumex 2 mg IV twice daily for IV diuresis, Zosyn for pneumonia coverage, heparin GGT due to concern of NSTEMI, Coreg, Flomax and DuoNeb treatments. Nephrology team consulted as patient has LATASHA on CKD with BUN 54, creatinine 2.7, GFR 27 per chart review patient's baseline GFR is 44. Patient seen at bedside, patient is arousable to sternal rub, unable to answer questions, not conversational, patient's mother at bedside case discussed extensively with her. Patient is currently on IV Bumex, will be given IV contrast for CTA. Discussed with patient's mother at bedside that if patient's renal function continues to decline patient might need dialysis temporarily, patient's mother is the primary decision maker and agrees with dialysis if needed. 05/23/2024: Patient seen at bedside today, patient is alert oriented x 3, MRI brain was positive for multiple tiny embolic type infarcts left temporal lobe bilateral parietal lobe, on examination gross movement is noted in all 4 limbs, patient's renal function improved slightly GFR 28, creatinine 2.6, BUN 59 compared to yesterday, IV diuretics were held. Patient is still pending CTA chest, discussed with family at bedside, agrees with temporary dialysis if needed. Would recommend to hold diuretics currently as patient's swelling has improved, saturating well on oxy mask 3-5 L. Will continue to monitor patient's renal function. 05/24/2024: Patient seen at bedside on med telemetry today, alert oriented x 3. Patient is scheduled for CTA today, otherwise patient's renal function has improved BUN 51, creatinine 2.2, GFR 35, IV diuretics are being held currently. Bilateral pitting edema noted, more severe than yesterday, consider resuming diuretics. Continues to be on high flow oxygen 20 L. Otherwise patient has no complaints, will continue to monitor patient's renal function post CTA, family and patient agrees with dialysis if needed. 05/25/2024: Patient seen at bedside currently on med telemetry. Patient received CTA yesterday, CTA positive for [place] type B dissecting aortic aneurysm, primary team trying to transfer the patient to tertiary care for possible vascular surgery intervention. Patient has good urine output despite receiving IV contrast yesterday, produced about 2.35 L worth of urine yesterday creatinine 2.0, GFR 39, BUN 47. Continues to be on high flow oxygen 20 L. Will continue to monitor renal function and urine output. 05/26/2024: Patient seen at the bedside in telemetry. Patient was not a candidate for transfer, his condition continues to be managed medically with aggressive BP control with goal SBP <130. Patient denies chest pain, headache, abdominal pain. UO 2.2 L. Labs showed sodium 134, potassium 3.6, BUN 39, creatinine 1.7, GFR 58.3, kidney functions improving. Will continue to monitor renal function and urine output. Continues to be on high flow, oxygen requirements are decreasing, right now on 15 L 40% FiO2. Exam Vital Signs Temp Pulse Resp BP Pulse Ox O2 Del Method O2 Flow Rate 97.6 F 68 31 H 121/66 92 L High Flow Nasal Cannula 15 05/26/24 04:00 05/26/24 09:17 05/26/24 06:35 05/26/24 09:17 05/26/24 06:35 05/26/24 04:00 05/26/24 06:35 FiO2 40 05/26/24 06:35 Narrative Exam Physical Exam General: Awake and in no acute distress. Conversational and non-toxic appearing. HEENT: Normocephalic, atraumatic, mucous membranes moist. Heart: Regular rate and rhythm, no murmurs. Lungs: Clear to auscultation with no wheezing or crackles. Abdomen: Soft, nondistended, nontender, positive bowel sounds. ?No guarding or rebound tenderness. Neurologic: Alert and oriented x3, no gross neurological deficit, and patient able to move all 4 extremities. Extremities: No edema. Skin: No rash or ecchymoses. Objective Labs 05/27/24 05:00 05/27/24 05:00 Labs: Laboratory Results - last 24 hr 05/26/24 05:05 WBC 6.4 D RBC 4.04 L Hgb 12.7 L Hct 36.3 L MCV 90 MCH 31.4 MCHC 35.0 RDW Std Deviation 45.9 H Plt Count 177 D Neut % (Auto) 57 Lymph % (Auto) 30 [place] % (Auto) 12 Eos % (Auto) 0 Baso % (Auto) 0 Neut # (Auto) 3.7 Lymph # (Auto) 1.9 [place] # (Auto) 0.8 Eos # (Auto) 0.0 Baso # (Auto) 0.0 Immature Gran # (Auto) 0.07 H Absolute Nucleated RBC 0.00 Immature Gran % 1 H Nucleated RBC % 0 Sodium 134 L Potassium 3.6 Chloride 100 Carbon Dioxide 26.5 Anion Gap 8 BUN 39 H Creatinine 1.7 H Estim Creat Clear Calc 58.3 L eGFR 47 L BUN/Creatinine Ratio 23 H Glucose 110 H Calculated Osmolality 278 Calcium 8.2 L Corrected Calcium 8.6 Phosphorus 2.2 L Magnesium 1.9 Total Bilirubin 2.5 H AST 166 H ALT 114 H Alkaline Phosphatase 82 Total Protein 6.8 Albumin 3.5 Globulin 3.3 Albumin/Globulin Ratio 1.1 L ABG Interpretation ABG results: 05/20/24 05/21/24 05/22/24 17:52 04:45 00:39 ABG pH 7.36 7.42 7.53 H D ABG pCO2 33 44 D 38 ABG pO2 375 H 107 D 43 L* D ABG HCO3 19 L 29 H 31 H ABG O2 Saturation 101 H 98 80 L ABG Base Excess -6 L 3 8 H 05/22/24 05/23/24 00:56 19:04 ABG pH 7.50 H 7.55 H ABG pCO2 40 34 ABG pO2 64 L D 53 L* ABG HCO3 31 H 30 H ABG O2 Saturation 93 89 L ABG Base Excess 7 H 8 H Quality Measures Quality Measures VTE prophylaxis Assessment & Plan Assessment Current Active Medications: Generic Name Dose Route Start Last Admin Trade Name Santhoshq PRN Reason Stop Dose Admin Acetaminophen 650 mg 05/20/24 01:03 05/24/24 23:11 Acetaminophen 325 Mg Tablet PO 06/19/24 01:02 650 mg Q6H PRN Administration Pain 1-3 or Fever >100.3 Hydrocodone Bitart/Acetaminophen 1 tab 05/25/24 07:22 Hydrocodone/Apap 5/325 Tablet PO 05/30/24 07:21 Q4HR PRN PAIN SCALE 4-6 (Moderate Amoxicillin/Clavulanate Potassium 500 mg 05/24/24 21:00 05/26/24 09:16 Amoxicillin/Pot Clav 500 Mg Tablet PO 05/31/24 20:59 500 mg BID MICAH Administration Aspirin 81 mg 05/26/24 09:00 05/26/24 09:17 Aspirin Ec 81 Mg Tabec PO 06/25/24 08:59 81 mg QDAY MICAH Administration Bumetanide 1 mg 05/24/24 13:15 05/26/24 09:17 Bumetanide Inj 0.25 Mg/Ml Vial 4 Ml IVP 06/23/24 13:14 1 mg BID MICAH Administration Clopidogrel Bisulfate 75 mg 05/26/24 09:00 05/26/24 09:17 Clopidogrel Bisulfate 75 Mg Tablet PO 06/16/24 08:59 75 mg QDAY MICAH Administration Magnesium Sulfate 2 gm in 50 mls @ 25 mls/hr 05/26/24 07:43 05/26/24 09:16 Magnesium Sulfate Ivpb IV 05/26/24 09:42 25 mls/hr X1 ONE Administration Labetalol HCl 10 mg 05/25/24 10:20 05/25/24 23:59 Labetalol Inj 5 Mg/Ml Vial 20 Ml IVP 06/24/24 10:12 10 mg Q4HR PRN Administration SBP > 120 Labetalol HCl 100 mg 05/26/24 19:00 Labetalol 100 Mg Tablet PO 06/25/24 18:59 Q12H MICAH Morphine Sulfate 1 mg 05/25/24 07:22 Morphine Sulf Inj 10 Mg/Ml Vial IVP 05/30/24 07:21 Q4HR PRN PAIN SCALE 7-10 (Severe Nifedipine 30 mg 05/26/24 09:00 05/26/24 09:17 Nifedipine Xl 30 Mg Tabcr PO 06/25/24 08:59 30 mg QDAY MICAH Administration Ondansetron HCl 4 mg 05/20/24 01:03 Ondansetron Inj 2 Mg/Ml Inj 2 Ml IV 06/19/24 01:02 Q6H PRN NAUSEA OR VOMITING Protocol Pantoprazole Sodium 40 mg 05/20/24 21:00 05/25/24 20:36 Pantoprazole Inj 40 Mg Vial IVP 06/19/24 20:59 40 mg HS MICAH Administration Pharmacy Consult 1 each 05/21/24 08:42 Pharmacy Renal Dose Adjustment 1 Ea XX 06/20/24 08:41 PRN PRN CONSULT Polyethylene Glycol 17 gm 05/25/24 14:45 05/26/24 09:18 Polyethylene Glycol 17 Gm Packet PO 06/24/24 14:44 Not Given QDAY MICAH Sennosides 1 tab 05/23/24 07:55 Senna Tablet PO 06/19/24 08:59 QDAY PRN constipation Protocol Sertraline HCl 25 mg 05/26/24 21:00 Sertraline Hcl 25 Mg Tablet PO 06/25/24 20:59 HS MICAH Plan Summary: Mr. De is a 54-year-old male with past medical history of hypertension, CKD stage IIIb, HFpEF, methamphetamine use was admitted for acute hypoxic respiratory failure due to CHF exacerbation and hypertensive emergency. Nephrology team consulted for LATASHA on CKD. #LATASHA on CKD stage IIIb, improving BUN 54, creatinine 2.7, GFR 27 on 05/22 Per chart review patient's baseline GFR is 44. Currently on IV Bumex, renal function BUN 47, creatinine 2.0, GFR 39 Patient has good urine output, produced about 2.35 L in the last 24 hours Plan: -Currently on IV Bumex 1 mg IVP twice daily -Strict I&O's -Dose medication renally -Avoid nephrotoxic medications -Monitor renal panel closely -Bilateral pitting edema improved -Discussed with patient about need of temporary dialysis if renal function declines, patient agrees #[place] type B dissecting aortic aneurysm #Acute hypoxic encephalopathy, improving #Methamphetamine abuse disorder #Marijuana abuse disorder #Shock, resolved #NSTEMI #Hypertension #Acute exacerbation of HFpEF #Acute hypoxic respiratory failure 2/2 HFpEF exacerbation and Aspiration PNA #Aspiration pneumonia #Cystic lung 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 Plan of care discussed with attending Dr. Hernandez. Sushila Yanez MD, PGY 1. Attending Provider Attestation/Addendum Patient seen and examined with resident physician Dr. Conti. Note reviewed, agree with findings and recommendations.
[2024-05-26] MEDS: SPIRONOLACTONE 25 MG TABLET PO ×2 (14:41→20:31)
[2024-05-26] MEDS: LABETALOL 100 MG TABLET 50 MG PO (19:40)
[2024-05-26] MEDS: SENNA TABLET 1 TAB PO (20:31)
[2024-05-26] MEDS: SERTRALINE HCL 25 MG TABLET PO (20:31)
[2024-05-26] MEDS: PANTOPRAZOLE INJ 40 MG VIAL IVP (20:32)
--- NOTE | 2024-05-26 20:42 | PC.NURSE ---
2019- B/P rechecked after PO dose of Labetolol 50 mg, B/P now 131/68, p-73 from previous b/p of 157/85, P-71, per , Dr Costa, B/P is fine , no new orders recieved.
--- NOTE | 2024-05-26 23:34 | PD.VPROG1 ---
Telemedicine visit statement This visit was conducted with the use of interactive audio and video telecommunications system that permits real time communication between the patient and the provider. Patient's verbal consent for virtual visit was obtained on 05/26/24 at 2334. Documentation for date of: 05/26/24 Virtual exam Vital Signs Temp Pulse Resp BP Pulse Ox O2 Del Method O2 Flow Rate 98.8 F 70 23 H 142/76 H 90 L High Flow Nasal Cannula 15 05/26/24 20:00 05/26/24 23:23 05/26/24 20:00 05/26/24 23:23 05/26/24 20:00 05/26/24 20:00 05/26/24 19:28 FiO2 40 05/26/24 19:28 Objective Labs 05/26/24 05:05 05/26/24 05:05 Labs: Laboratory Results - last 24 hr 05/26/24 05:05 WBC 6.4 D RBC 4.04 L Hgb 12.7 L Hct 36.3 L MCV 90 MCH 31.4 MCHC 35.0 RDW Std Deviation 45.9 H Plt Count 177 D Neut % (Auto) 57 Lymph % (Auto) 30 [place] % (Auto) 12 Eos % (Auto) 0 Baso % (Auto) 0 Neut # (Auto) 3.7 Lymph # (Auto) 1.9 [place] # (Auto) 0.8 Eos # (Auto) 0.0 Baso # (Auto) 0.0 Immature Gran # (Auto) 0.07 H Absolute Nucleated RBC 0.00 Immature Gran % 1 H Nucleated RBC % 0 Sodium 134 L Potassium 3.6 Chloride 100 Carbon Dioxide 26.5 Anion Gap 8 BUN 39 H Creatinine 1.7 H Estim Creat Clear Calc 58.3 L eGFR 47 L BUN/Creatinine Ratio 23 H Glucose 110 H Calculated Osmolality 278 Calcium 8.2 L Corrected Calcium 8.6 Phosphorus 2.2 L Magnesium 1.9 Total Bilirubin 2.5 H AST 166 H ALT 114 H Alkaline Phosphatase 82 Total Protein 6.8 Albumin 3.5 Globulin 3.3 Albumin/Globulin Ratio 1.1 L ABG Interpretation ABG results: 05/20/24 05/21/24 05/22/24 17:52 04:45 00:39 ABG pH 7.36 7.42 7.53 H D ABG pCO2 33 44 D 38 ABG pO2 375 H 107 D 43 L* D ABG HCO3 19 L 29 H 31 H ABG O2 Saturation 101 H 98 80 L ABG Base Excess -6 L 3 8 H 05/22/24 05/23/24 00:56 19:04 ABG pH 7.50 H 7.55 H ABG pCO2 40 34 ABG pO2 64 L D 53 L* ABG HCO3 31 H 30 H ABG O2 Saturation 93 89 L ABG Base Excess 7 H 8 H
[2024-05-27] VITALS (27 sets, daily range): BP systolic 113–149; BP diastolic 61–86; PULSE 63–87; RESP 17–26; TEMP 36.2–37.2; O2SAT 90–98; BMI 25.0
[2024-05-27] MEDS: MELATONIN 3 MG TABLET 6 MG PO (00:07)
[2024-05-27] MEDS: HYDROcodone/APAP 5/325 TABLET 1 TAB PO (05:25)
[2024-05-27 06:14] LABS: Basophils % (Auto) 0 % (0-2.5); Eosinophils % (Auto) 0 % (0-10); Hematocrit 32.8 % (41.0-53.0); Hemoglobin 11.3 g/dL (13.5-16.0); Immature Granulocytes % (Auto) 3 % (0-0); Immature Granulocytes Auto 0.21 Thou/mm3 (0.00-0.00); Lymphocytes # (Auto) 1.8 Thou/mm3 (1.0-4.8); Lymphocytes % (Auto) 24 % (10-50); Mean Corpuscular HGB Conc 34.5 g/dl (31.0-37.0); Mean Corpuscular Hemoglobin 31.6 pg (25.0-35.0); Mean Corpuscular Volume 92 fL (80-100); Monocytes # (Auto) 0.8 Thou/mm3 (0.0-0.8); Monocytes % (Auto) 10 % (0-12); Neutrophils # (Auto) 4.9 Thou/mm3 (1.8-7.7); Neutrophils % (Auto) 63 % (37-80); Nucleated Red Blood Cell % 0 /100 WBC (0); Platelet Count 174 Thou/mm3 (140-440); RDW Standard Deviation 47.3 fL (35.1-43.9); Red Blood Count 3.58 Miln/mm3 (4.50-5.90); White Blood Count 7.7 Thou/mm3 (3.8-10.6)
[2024-05-27 06:34] LABS: Alanine Aminotransferase 95 U/L (10-49); Albumin, Serum 3.4 gm/dL (3.5-5.0); Albumin/Globulin Ratio 1.1 (1.2-2.2); Alkaline Phosphatase 81 U/L (46-116); Anion Gap 8 (7-16); Aspartate Amino Transferase 134 U/L (0-34); BUN/Creatinine Ratio 21 Ratio (12-20); Bilirubin,Total 2.6 mg/dL (0.3-1.2); Blood Urea Nitrogen 33 mg/dL (9-23); Calcium (Corrected) 8.5 mg/dL (8.5-10.1); Carbon Dioxide 25.8 mMol/L (20.0-31.0); Chloride 100 mMol/L (98-107); Creatinine (Component) 1.6 mg/dL (0.6-1.3); Estimated Creatinine Clearance 57.3 mL/min (>60); Globulin 3.2 gm/dL (2.3-3.5); Glucose 103 mg/dL (74-106); Magnesium 2.1 mg/dL (1.6-2.6); Osmolality,Calculated 275 (275-295); Phosphorous 2.5 mg/dL (2.4-5.1); Potassium 3.6 mMol/L (3.4-5.1); Sodium 134 mMol/L (136-145); Total Protein 6.6 gm/dL (5.7-8.2); eGFR 51 See Note
[2024-05-27 06:55] LABS: Gamma Glutamyl Transpeptidase* 129 U/L (3-85)
[2024-05-27] MEDS: LABETALOL 100 MG TABLET 50 MG PO (07:26)
[2024-05-27] MEDS: BUMETANIDE INJ 0.25 MG/ML VIAL 4 ML 1 MG IVP ×2 (08:29→21:33)
[2024-05-27] MEDS: POTASSIUM CHLORIDE 10% 20 MEQ/15 ML UDC 40 MEQ PO (08:29)
[2024-05-27] MEDS: ASPIRIN EC 81 MG TABEC PO (08:30)
[2024-05-27] MEDS: SPIRONOLACTONE 25 MG TABLET PO ×2 (08:30→21:32)
[2024-05-27] MEDS: NIFEdipine XL 30 MG TABCR PO (08:30)
[2024-05-27] MEDS: CLOPIDOGREL BISULFATE 75 MG TABLET PO (08:31)
[2024-05-27] MEDS: POLYETHYLENE GLYCOL 17 GM PACKET PO (08:31)
--- NOTE | 2024-05-27 10:08 | ESPR_ITS ---
Documentation for date of: 05/27/24 Subjective Subjective Interval history: Interval history: Mr. De is a 54-year-old male with past medical history of hypertension, CKD stage IIIb, HFpEF, methamphetamine use was admitted for acute hypoxic respiratory failure due to CHF exacerbation and hypertensive emergency. Patient was upgraded to ICU due to altered mental status due to hypotension and hypoxia. Therefore patient ended up getting intubated for airway protection and started on Levophed during ICU course. Patient was given reversal for calcium channel prasanna with calcium chloride x 3 after which patient's blood pressure showed improvement. 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 real property appraiser today 05/22/24 patient had a stroke alert called for change in mental status GCS was 12, teleneuro assessed the patient and recommended further investigations. Patient's head and neck CTA was significant for descending thoracic aorta aneurysmal dilation with extensive thrombus and radiology recommended CTA chest post IV contrast follow-up. Patient is currently on Bumex 2 mg IV twice daily for IV diuresis, Zosyn for pneumonia coverage, heparin GGT due to concern of NSTEMI, Coreg, Flomax and DuoNeb treatments. Nephrology team consulted as patient has LATASHA on CKD with BUN 54, creatinine 2.7, GFR 27 per chart review patient's baseline GFR is 44. Patient seen at bedside, patient is arousable to sternal rub, unable to answer questions, not conversational, patient's mother at bedside case discussed extensively with her. Patient is currently on IV Bumex, will be given IV contrast for CTA. Discussed with patient's mother at bedside that if patient's renal function continues to decline patient might need dialysis temporarily, patient's mother is the primary decision maker and agrees with dialysis if needed. 05/26/2024: Patient seen at the bedside in telemetry. Patient was not a candidate for transfer, his condition continues to be managed medically with aggressive BP control with goal SBP <130. Patient denies chest pain, headache, abdominal pain. UO 2.2 L. Labs showed sodium 134, potassium 3.6, BUN 39, creatinine 1.7, GFR 58.3, kidney functions improving. Will continue to monitor renal function and urine output. Continues to be on high flow, oxygen requirements are decreasing, right now on 15 L 40% FiO2. 05/27/2024 patient currently seen in telemetry. Deemed not a candidate for transfer. Resting comfortably. Still on high flow oxygen. Blood pressure 139/81, heart rate 67. Hemoglobin 11.3. Sodium 134, potassium 3.6, BUN 33, creatinine 1.6, GFR 51, calcium 8.5, phosphorus 2.5, magnesium 2.1, AST 134, ALT 95, albumin 3.4 Review of Systems Review of Systems Narrative Review of Systems: Patient complaining of shortness of breath. Denies any chest pain. Decreased appetite. Feeling fatigue and tired Exam Vital Signs Temp Pulse Resp BP Pulse Ox O2 Del Method O2 Flow Rate 36.3 C 67 20 140/85 H 95 High Flow Nasal Cannula 20 05/27/24 07:27 05/27/24 08:30 05/27/24 07:27 05/27/24 08:30 05/27/24 07:27 05/27/24 07:27 05/27/24 07:27 FiO2 60 05/27/24 07:27 Narrative Exam Physical Exam General: Awake and in no acute distress. Comfortable HEENT: Normocephalic, atraumatic, mucous membranes moist. Heart: Regular rate and rhythm, no murmurs. Lungs: Fine crackles at the bases Abdomen: Soft, nondistended, nontender, positive bowel sounds. ?No guarding or rebound tenderness. Neurologic: Alert and oriented x3, no gross neurological deficit, and patient able to move all 4 extremities. Extremities: No edema. Skin: No rash or ecchymoses. Objective Labs 05/27/24 05:00 05/27/24 05:00 Labs: Laboratory Results - last 24 hr 05/22/24 05/27/24 06:28 05:00 WBC 7.7 RBC 3.58 L Hgb 11.3 L Hct 32.8 L MCV 92 MCH 31.6 MCHC 34.5 RDW Std Deviation 47.3 H Plt Count 174 Neut % (Auto) 63 Lymph % (Auto) 24 [place] % (Auto) 10 Eos % (Auto) 0 Baso % (Auto) 0 Neut # (Auto) 4.9 Lymph # (Auto) 1.8 [place] # (Auto) 0.8 Eos # (Auto) 0.0 Baso # (Auto) 0.0 Immature Gran # (Auto) 0.21 H Absolute Nucleated RBC 0.00 Immature Gran % 3 H Nucleated RBC % 0 Sodium 134 L Potassium 3.6 Chloride 100 Carbon Dioxide 25.8 Anion Gap 8 BUN 33 H Creatinine 1.6 H Estim Creat Clear Calc 57.3 L eGFR 51 L BUN/Creatinine Ratio 21 H Glucose 103 Calculated Osmolality 275 Calcium 8.0 L Corrected Calcium 8.5 Phosphorus 2.5 Magnesium 2.1 Total Bilirubin 2.6 H GGT 129 H AST 134 H ALT 95 H Alkaline Phosphatase 81 Total Protein 6.6 Albumin 3.4 L Globulin 3.2 Albumin/Globulin Ratio 1.1 L ABG Interpretation ABG results: 05/20/24 05/21/24 05/22/24 17:52 04:45 00:39 ABG pH 7.36 7.42 7.53 H D ABG pCO2 33 44 D 38 ABG pO2 375 H 107 D 43 L* D ABG HCO3 19 L 29 H 31 H ABG O2 Saturation 101 H 98 80 L ABG Base Excess -6 L 3 8 H 05/22/24 05/23/24 00:56 19:04 ABG pH 7.50 H 7.55 H ABG pCO2 40 34 ABG pO2 64 L D 53 L* ABG HCO3 31 H 30 H ABG O2 Saturation 93 89 L ABG Base Excess 7 H 8 H Assessment & Plan Additional Assessment & Plan Additional Plan: Mr. De is a 54-year-old male with past medical history of hypertension, CKD stage IIIb, HFpEF, methamphetamine use was admitted for acute hypoxic respiratory failure due to CHF exacerbation and hypertensive emergency. Nephrology team consulted for LATASHA on CKD. #LATASHA on CKD stage IIIb, improving Creatinine 1.6 with a GFR 51 Patient has good urine output, produced about 2.35 L in the last 24 hours Plan: -Currently on IV Bumex 1 mg IVP twice daily -Strict I&O's -Dose medication renally -Avoid nephrotoxic medications -Monitor renal panel closely #[place] type B dissecting aortic aneurysm #Acute hypoxic encephalopathy, improving #Methamphetamine abuse disorder #Marijuana abuse disorder #Shock, resolved #NSTEMI #Hypertension #Acute exacerbation of HFpEF #Acute hypoxic respiratory failure 2/2 HFpEF exacerbation and Aspiration PNA #Aspiration pneumonia #Cystic lung 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 Quality - progress note Quality Measures Quality Measures: VTE prophylaxis Reason for Continued Stay Reason for Continued Stay: further monitoring
[2024-05-27] MEDS: LABETALOL INJ 5 MG/ML VIAL 20 ML 10 MG IVP ×2 (13:48→14:57)
--- NOTE | 2024-05-27 14:20 | PC.NURSE ---
Dr. Barros aware of pt. BP 135/84. Pt. already received Labetolol IV push PRN. states I am okay with that for now. I will look at the patients chart and make adjustments.
--- NOTE | 2024-05-27 14:52 | PC.NURSE ---
Dr. Barros orders to give anther dose of ordered PRN Labetolol IV push now. Dr. alaniz PRN order is for q4 PRN. orders its okay to give another dose now.
--- NOTE | 2024-05-27 15:18 | ESPR_ITS ---
<Statement entered by Ray Barajas MD - 05/27/24 16:11> Patient was examined bedside this morning, he feels a little bit sad that he is in hospital in [place]. Will try to try to titrate his high flow. Added Coreg as per Dr Ramirez dunbar. will continue Nifedipine, labatelol, spironolactone and Bumex for now. He has a good urine output with negative balance of 2440 . Will continue the current management I discussed with and supervised my co-resident involved in the care of this patient. I agree with the assessment and plan as documented above. Ray aBrajas,PGY-3 Disclaimer: Despite multiple revisions, due to the dictation software being used, the document below may not be free of grammatical errors including phonetic/typographic errors. However, this does not deter from our commitment to providing health care in the patient's best interest in mind. Documentation for date of: 05/27/24 Subjective Subjective Interval history: Patient is a 54-year-old male with a past medical history of hypertension, chronic kidney disease stage III, history of congestive heart failure HFpEF- diastolic dysfunction stage I 50 to 55% (03/15/2023), and history of poly- substance use disorder (meth/THC) who was initially admitted for acute hypoxic respiratory failure and CHF exacerbation, then found to have an aortic dissection, type B. Labetalol 10 mg IVP given overnight. Patient this morning does not report any events. Stated he is ready to return home. Denied chest pain. Denied dyspnea. Patient SpO2 93% on high flow on rate of 20 and Fio2 of 40-->request respiratory to start titrating down. Will continue to monitor,pending further recommendations for cardiology for blood pressure control. Exam Vital Signs Temp Pulse Resp BP Pulse Ox O2 Del Method O2 Flow Rate 97.4 F 81 20 139/81 H 95 High Flow Nasal Cannula 20 05/27/24 11:45 05/27/24 14:57 05/27/24 11:45 05/27/24 14:57 05/27/24 11:45 05/27/24 11:45 05/27/24 10:19 FiO2 60 05/27/24 10:19 Narrative Exam General Appearance: Alert & Oriented X3, well-nourished male who is lying in bed in no acute distress HEENT: Skull symmetrical and atraumatic. Conjunctivae pink and moist. Pupils equal, round, reactive to light and accommodation (PERRL). External ear without lesion or discharge. Straight, nares patient, mucosa pink, no discharge. Cardio: Normal Rate and Rhythm with S1 and S2 heart sounds. No murmurs or extra heart sounds auscultated. No bruits on carotid auscultation. No peripheral edema or cyanosis. Lungs: Symmetric with good expansion. Chest and back non-tender. Breath sounds vesicular without crackles, wheezing or rhonchi Abdomen: Non-tender, Non-distended, Normal Reactive Bowel Sounds Neuro: Alert, cooperative, oriented to person, place, and time. Speech clear. CN grossly intact. Upper motor strength 5/5 and Lower motor strength 5/5. Sensation intact. Objective Labs 05/28/24 05:19 05/28/24 05:19 Labs: Laboratory Results - last 24 hr 05/22/24 05/27/24 06:28 05:00 WBC 7.7 RBC 3.58 L Hgb 11.3 L Hct 32.8 L MCV 92 MCH 31.6 MCHC 34.5 RDW Std Deviation 47.3 H Plt Count 174 Neut % (Auto) 63 Lymph % (Auto) 24 [place] % (Auto) 10 Eos % (Auto) 0 Baso % (Auto) 0 Neut # (Auto) 4.9 Lymph # (Auto) 1.8 [place] # (Auto) 0.8 Eos # (Auto) 0.0 Baso # (Auto) 0.0 Immature Gran # (Auto) 0.21 H Absolute Nucleated RBC 0.00 Immature Gran % 3 H Nucleated RBC % 0 Sodium 134 L Potassium 3.6 Chloride 100 Carbon Dioxide 25.8 Anion Gap 8 BUN 33 H Creatinine 1.6 H Estim Creat Clear Calc 57.3 L eGFR 51 L BUN/Creatinine Ratio 21 H Glucose 103 Calculated Osmolality 275 Calcium 8.0 L Corrected Calcium 8.5 Phosphorus 2.5 Magnesium 2.1 Total Bilirubin 2.6 H GGT 129 H AST 134 H ALT 95 H Alkaline Phosphatase 81 Total Protein 6.6 Albumin 3.4 L Globulin 3.2 Albumin/Globulin Ratio 1.1 L ABG Interpretation ABG results: 05/20/24 05/21/24 05/22/24 17:52 04:45 00:39 ABG pH 7.36 7.42 7.53 H D ABG pCO2 33 44 D 38 ABG pO2 375 H 107 D 43 L* D ABG HCO3 19 L 29 H 31 H ABG O2 Saturation 101 H 98 80 L ABG Base Excess -6 L 3 8 H 05/22/24 05/23/24 00:56 19:04 ABG pH 7.50 H 7.55 H ABG pCO2 40 34 ABG pO2 64 L D 53 L* ABG HCO3 31 H 30 H ABG O2 Saturation 93 89 L ABG Base Excess 7 H 8 H Quality Measures Quality Measures VTE prophylaxis (Holding heparin ) Assessment & Plan Assessment Current Active Medications: Generic Name Dose Route Start Last Admin Trade Name Freq PRN Reason Stop Dose Admin Acetaminophen 650 mg 05/20/24 01:03 05/24/24 23:11 Acetaminophen 325 Mg Tablet PO 06/19/24 01:02 650 mg Q6H PRN Administration Pain 1-3 or Fever >100.3 Hydrocodone Bitart/Acetaminophen 1 tab 05/25/24 07:22 05/27/24 05:25 Hydrocodone/Apap 5/325 Tablet PO 05/30/24 07:21 1 tab Q4HR PRN Administration PAIN SCALE 4-6 (Moderate Aspirin 81 mg 05/26/24 09:00 05/27/24 08:30 Aspirin Ec 81 Mg Tabec PO 06/25/24 08:59 81 mg QDAY MICAH Administration Bumetanide 1 mg 05/24/24 13:15 05/27/24 08:29 Bumetanide Inj 0.25 Mg/Ml Vial 4 Ml IVP 06/23/24 13:14 1 mg BID MICAH Administration Carvedilol 25 mg 05/27/24 19:00 Carvedilol 12.5 Mg Tablet PO 06/26/24 18:59 BIDWM MICAH Clopidogrel Bisulfate 75 mg 05/26/24 09:00 05/27/24 08:31 Clopidogrel Bisulfate 75 Mg Tablet PO 06/16/24 08:59 75 mg QDAY MICAH Administration Labetalol HCl 10 mg 05/25/24 10:20 05/27/24 14:57 Labetalol Inj 5 Mg/Ml Vial 20 Ml IVP 06/24/24 10:12 10 mg Q4HR PRN Administration SBP > 120 Morphine Sulfate 1 mg 05/25/24 07:22 Morphine Sulf Inj 10 Mg/Ml Vial IVP 05/30/24 07:21 Q4HR PRN PAIN SCALE 7-10 (Severe Nifedipine 30 mg 05/26/24 09:00 05/27/24 08:30 Nifedipine Xl 30 Mg Tabcr PO 06/25/24 08:59 30 mg QDAY MICAH Administration Ondansetron HCl 4 mg 05/20/24 01:03 Ondansetron Inj 2 Mg/Ml Inj 2 Ml IV 06/19/24 01:02 Q6H PRN NAUSEA OR VOMITING Protocol Pantoprazole Sodium 40 mg 05/20/24 21:00 05/26/24 20:32 Pantoprazole Inj 40 Mg Vial IVP 06/19/24 20:59 40 mg HS MICAH Administration Pharmacy Consult 1 each 05/21/24 08:42 Pharmacy Renal Dose Adjustment 1 Ea XX 06/20/24 08:41 PRN PRN CONSULT Polyethylene Glycol 17 gm 05/25/24 14:45 05/27/24 08:31 Polyethylene Glycol 17 Gm Packet PO 06/24/24 14:44 17 gm QDAY MICAH Administration Sennosides 1 tab 05/23/24 07:55 05/26/24 20:31 Senna Tablet PO 06/19/24 08:59 1 tab QDAY PRN Administration constipation Protocol Sertraline HCl 25 mg 05/26/24 21:00 05/26/24 20:31 Sertraline Hcl 25 Mg Tablet PO 06/25/24 20:59 25 mg HS MICAH Administration Spironolactone 25 mg 05/26/24 14:15 05/27/24 08:30 Spironolactone 25 Mg Tablet PO 06/25/24 14:14 25 mg BID MICAH Administration Plan This patient is a 54-year-old male with a past medical history of hypertension, chronic kidney disease stage III, history of congestive heart failure HFpEF- diastolic dysfunction stage I 50 to 55% (03/15/2023), and history of poly- substance use disorder (meth/THC) who was initially admitted for acute hypoxic respiratory failure and CHF exacerbation, then upgraded to ICU and downgraded on 05/22/2024-->managing aortic dissection type B. #Aortic Dissection, Type B [place] #Acute hypoxic respiratory Failure, improving #Pneumonia, improved #Aortic thrombus, less likely #Obstructive Shock (?) #Sepsis, secondary to pneumonia with end organ failure, Resolved. Etiology: Acute hypoxic respiratory failure is likely multi-factorial but CHF exacerbation likely contributing to hypoxemia on addmission given elevated BNP and chest xray on admission showing pulmonary vascular congestion. Sepsis secondary to pneumonia likely contributing to increased work of breathing given update Cxr showing bilateral pneumonia. Consider aspiration pneumonia and increasing Zosyn dosage. Sepsis noted overnight, with a Fever of 101, RR 23, with source of infection as noted in Cxr showing pneumonia. Although Well's criteria on admission was 0, concern for PE increased given possible thrombus noted on CTA neck. Current Well's criteria 3. On heparin drip for thrombus. Thrombus could also be causing respiratory failure leading to possible obstructive shock previous to ICU admission. 05/24/2024-CTA obtained showing aortic dissection, [place] type B. Patients SBP today between 120-140. Currently working on transferring patient. [facility] rejected patient as vascular surgery stated patient is hemodynamically stable. 05/24/2024: Patient continued to have elevated blood pressure Labetolol given X3 throught out the day and hydralazine x1 at 6 PM. Coreg increased to 25 mg PO BIDWM 05/26/2024: Patient was given labetalol IV 60 mg overnight for blood pressure management. Discontinued Coreg today this morning. 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 Berger, multi line claims adjuster for patient's pulmonary arterial hypertension and per recommendation started on spironolactone 25 mg once daily 05/27/2024: Labetalol 50 mg BID-->D/C. Started patient on Coreg 25 mg BID, continue Nifedipine 30 mg Qday, spironolactone 25 mg once a day. Start amlodipine 10 mg Qday tomorrow Plan ? restart Coreg 25 mg BID, nifedipine XL 30 mg once daily and added spironolactone 25 mg once daily -Start Amlodipine, pre-recommendations. -Discontinue Labetalol 50 mg BID -Labetalol IV 10 mg IV Q4HR PRN, for SBP >130 -Goal Systolic blood pressure at or near <120 with MAP >70 -If blood pressure remains high and HR <60, consult ICU-->consider nitroprusside -Holding Heparin, given possible hemorrhage into Psoas muscle -Type and screen placed. -Zosyn 3.375 g (05/22/2024-05/23/2024)-->Augmentin 500 BID (05/23--05/26) -blood culture-NO growth after 48 Hours. -Continue highflow support, until able to titrate down on FiO2 to reach [place] #CHF Exacerbation, imroving #CHF, HFpEF systolic dysfunction with right heart failure EF 50% #Pulmonary HTN #Cor Pulmonale #Hypertension #NSTEMI I vs II (?) #Hypertensive Emergency, Resolved #Cardiogenic Shock, Resolved. Etiology: Patient has an extensive history of CHF, systolic dysfunciton with an EF of 50% and elevated pulmonary artery pressure with atrial dilation. In the setting of methamphetamine use, this is likely the cause as both are highly associated with atrial dilation and contributing to CHF-->consider Cor Pulmonale as left ventricle appears normal size and EKG noted right ventricle hypertrophy. On admission, patient likely suffered cardiogenic show from possible vasopasm from meth us and multiple anti-hypertensive medication. Now presenting with troponemia with no ST elevation and likely NSTEMI type II but type I can not be rule out. Diagnostics: Echo: Systolic Dysfunciton, massively dilated right atrium, EF 50%, RVSP 60 mm Hg (moderate severe pulmonary hypertension) Troponin (05/22/2024) 2.926 and 2.721 EKG (05/21/2024): Sinus Tachycardia Current output:Urine output: 2200 mL with negative balance of 1400 mL. Weight: 93 kg. Patient needs standing weight every day for accurate measurements Plan -Continue diuresis with Bumex 1 mg IVP BID -Daily weight checks in standing position -Fluid Restricted -Diet, Na restricted -Keep >4 and Mg >2 -Cardiology Consulted, Dr. Pham, appreciate recommendations -Consider bladder US if need be overnight #Acute Metabolic Encepholopathy, improved #Bilateral embolic stroke #Hypoxemia vs Sepsis vs stroke Etiology: Likely secondary to hypoxemia given CHF exacerbation on admission requiring intubation prior to being on floors and ischemic stroke as noted on MRI brain DDx: Poly-substance Use disorder secondary to methamphetamine as withdraw can present as hyperisonia or insominia vs Sepsis, improved -from CAP/Aspiration Diagnostics: -Head/Neck CTA (05/22/2024): Partially visualized descending thoracic aortic aneurysmal dilation w/ extensive thrombus, CTA recommend . NO significan neck arterial stenoses. No cerebral large vessel occlusions or thrombus. -MRI Brain (05/22/2024): Multiple tiny embolic type infartcs left temporal lobe bilateral parietal lobes as above -Lipid Panetl Triglycerides 71, Cholesterol 92, LDL 49, HDL 29, -TSH 2.39 -Utox Positive THC and Meth -Chest x-ray: Mild Bibasilar Pneumonia -CT Head: negative for hemorrhage or mass effect. ASCVD 3.6% 10 year cardiovascular risk, consider moderate to high intensity, currently no Atorvastatin to be added Plan: ? Continuing aspirin, Plavix and statin therapy per neurology recommendation -Heparin Drip, stopped given risk of bleeding into the Psoas muscle, possible hemorrhage -Hypercoaguable panel by Dr. Olivares -LEONARDO placed by ICU -Avoid Hyperthermia and keep Euglycemic -currently no plans for INESSA -Speech Evaluation: Diet Renal- Dysphagia 3 -Physical Therapy:Home with Oxygen & Home Health -Out of Permissive HTN -consider bupropion if withdraw symptoms are present -Neurology Consulted, appreciate recommendations, neurology #LATASHA on CKD III-->CKD III #hypokalemia Etiology: Patient has a past medical history of CHF with a BUN/Cr ratio of 19, thus maybe pre-renal given shock and CHF exacerbation, but worsening CKD likely given intrinsic failure. Initially patient was GFR of 31, now GFR worsening at 27, thus progressing towards end renal failure thus dialysis maybe a possibility. DDx: CKD secondary to Intrinsci renal failure from Meth use as it has been to lead to chronic kidney disease vs post renal obstruction given BPH Diagnostics: 05/28: BUN 39, creatinine 1.7, GFR 47 Plan: -Continue to replete electrolytes in setting of Bumex -Continue Bumex I mg IVP BID -Avoid nephrotoxins -renally dose medication -follow BUN & Cr -renal diet # Electrolyte disturbance # Hypophosphatemia Plan ? Add Neutra-Phos & continue to repleate K. # Depression ? Patient was feeling sad and depressive. Plan: ? Started sertraline 25 mg at bedtime #Cirrhosis secondary to Alcohol Use #Hyperbilirubinemia #Mild Transamitis Etiolgoy: Given shock, during ICU admission, likely secondary to hepatic ischemia and complicated by CHF exacerbation causing cardio-hepatic damage. History of Alcohol use disorder likely contributing to cirrhosis. Less likely secondary to infectious cause as hepatitis is negative vs autoimmune condition. LEONARDO and GGT pending. Plan -GGT-->129 (H) -monitor AST/ALT -monitor total bili #Normocytic Anemia #Acute blood loss Likely secondary in the setting of acute blood loss secondary to aortic dissection & hemorrhage at the psoas Plan -Consider Iron Panel AM #BPH Plan -no acute intervention -holding Tamulosin Health Maintenance: FEN: Renal Diet, Dysphagia 3 DVT: Holding Heparin, secondary to hemorrhage into psoas muscle Code: Full Code Disp: Pt is currently admitted to floors for further management of acute hypoxic respiratory failure due to right heart failure, aortic dissection type B Sean and ischemic embolic stroke. - The patient's plan was discussed with attending Dr. Jensen and senior residents Karl Barros MD PGY1 Internal Medicine Attending Provider Attestation/Addendum I have discussed and was present for the essential components of the history, physical examination, diagnosis, and treatment plan with the resident. I agree with the patient's care as documented by the resident and amended herein by me. Cj Jensen, DO. Will discontinue labetalol, start Coreg 25 mg twice daily, continue nifedipine 30 mg daily and spironolactone 25 mg daily for now. Will continue to diurese with Bumex 1 mg twice daily, cardiology consulted, appreciate recommendations Although this document has been carefully reviewed, there may still be some phonetic and other typographical errors. These errors are purely grammatical due to imperfections in the software program and should not be construed in any way to compromise the substance of the patient's medical care during this visit.
--- NOTE | 2024-05-27 15:38 | PD.IMPROG ---
Documentation for date of: 05/27/24 Subjective Subjective Interval history: Patient was seen at bedside this morning. No overnight events. Patient still on high flow nasal cannula. Patient is AO x 3 and more awake and alert today. Completed 48 hrs of Heparin For patient's aortic dissection recommend to keep BP below 120s. Please discontinue the labetalol and continue Coreg 25 mg twice daily for better control of blood pressure. Continue nifedipine XL 30 mg once daily and uptitrate it or can start amlodipine 10 mg once daily if blood pressure is greater than 120 mmHg. Continue spironolactone 25 mg once daily as recommended by nephrology along with the Bumex 1 Mg IV twice daily for now. Renal function being monitored by nephrology closely. Recommended to call the vascular surgeon on-call for the hospital or at an outside hospital and transferred to a tertiary care center for further interventions, but was unsuccesful as they stated patient did not need any emergent surgical procedure. Recommend to continue aspirin, plavix, and statin as there is no need for anticoagulation at the present time. . Fo patient's HF. Patient had total balance of -2.5 L in the past 24 hours. Can continue Bumex 1mg BID as kidney function showed improvement Patient's kidney function seems to be improving with BUN 33 and a creatinine of 1.7 recommend to keep potassium and magnesium above 4 and 2 to avoid any further arrhythmias. Patient had stroke alert called due to changes in mentation and brain MRI with MRA showed multiple tiny embolic infarcts of the left temporal lobe and bilateral parietal lobes. 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 Will follow-up on neurology recommendations on anticoagulation. Echo on 05/20/2024 had the following findings Small LV size, moderate LVH with low normal ejection fraction at around 50%. Flattened interatrial septum in both systole and diastole indicating both RV pressure and volume overload. Severely dilated right ventricle with moderate RV systolic dysfunction and massively dilated right atrium Moderate to severe TR and estimated RVSP around 60 mmHg indicating moderate to severe pulmonary hypertension Trace MR and dilated IVC Exam Vital Signs Temp Pulse Resp BP Pulse Ox O2 Del Method O2 Flow Rate 97.4 F 68 26 H 139/81 H 95 High Flow Nasal Cannula 20 05/27/24 11:45 05/27/24 15:17 05/27/24 15:17 05/27/24 14:57 05/27/24 15:17 05/27/24 11:45 05/27/24 15:17 FiO2 50 05/27/24 15:17 Narrative Exam General:AO x 3, more awake and alert, disheveled Eyes: PERRL, EOMI. icteric, vision grossly intact. Eyes bulging Ears: No ear pain, no ear discharge, Hearing grossly intact. Nose: No nasal discharge. Mouth/Throat: dry mucous membranes, no redness, no lesions. Neck: Neck supple, non-tender, no cervical lymphadenopathy. Lungs: Decreased in lower lobes, No accessory muscle use. Cardio: Normal S1/S2, regular rhythm, no murmurs, no JVD Abdomen: Soft, non-tender, no palpable masses, peristalsis present, no guarding or rebound. Extremities: Symmetrical, no significant deformities, 1+ peripheral edema , non-tender, peripheral pulses presents. Skin: No rashes, no lesions, warm to touch. Neuro: No focal neurological deficits. motor and sensory intact Objective Labs 05/28/24 05:19 05/27/24 05:00 Labs: Laboratory Results - last 24 hr 05/22/24 05/27/24 06:28 05:00 WBC 7.7 RBC 3.58 L Hgb 11.3 L Hct 32.8 L MCV 92 MCH 31.6 MCHC 34.5 RDW Std Deviation 47.3 H Plt Count 174 Neut % (Auto) 63 Lymph % (Auto) 24 [place] % (Auto) 10 Eos % (Auto) 0 Baso % (Auto) 0 Neut # (Auto) 4.9 Lymph # (Auto) 1.8 [place] # (Auto) 0.8 Eos # (Auto) 0.0 Baso # (Auto) 0.0 Immature Gran # (Auto) 0.21 H Absolute Nucleated RBC 0.00 Immature Gran % 3 H Nucleated RBC % 0 Sodium 134 L Potassium 3.6 Chloride 100 Carbon Dioxide 25.8 Anion Gap 8 BUN 33 H Creatinine 1.6 H Estim Creat Clear Calc 57.3 L eGFR 51 L BUN/Creatinine Ratio 21 H Glucose 103 Calculated Osmolality 275 Calcium 8.0 L Corrected Calcium 8.5 Phosphorus 2.5 Magnesium 2.1 Total Bilirubin 2.6 H GGT 129 H AST 134 H ALT 95 H Alkaline Phosphatase 81 Total Protein 6.6 Albumin 3.4 L Globulin 3.2 Albumin/Globulin Ratio 1.1 L ABG Interpretation ABG results: 05/20/24 05/21/24 05/22/24 17:52 04:45 00:39 ABG pH 7.36 7.42 7.53 H D ABG pCO2 33 44 D 38 ABG pO2 375 H 107 D 43 L* D ABG HCO3 19 L 29 H 31 H ABG O2 Saturation 101 H 98 80 L ABG Base Excess -6 L 3 8 H 05/22/24 05/23/24 00:56 19:04 ABG pH 7.50 H 7.55 H ABG pCO2 40 34 ABG pO2 64 L D 53 L* ABG HCO3 31 H 30 H ABG O2 Saturation 93 89 L ABG Base Excess 7 H 8 H Assessment & Plan A&P Narrative 4-year-old male with past medical history of meth use, HFpEF (50 to 55% on 2022), CKD, and hypertension was admitted to the hospital on 05/20/2024 due to acute decompensated heart failure exacerbation. 1. Sean B Aortic dissection -CT chest abdomen and pelvis was completed today and showed [place] type B aortic dissection beginning distal to the left subclavian artery and extending into the upper abdomen but ending prior to the origin of celiac, superior mesenteric artery axis. 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 Plan: -Appears to be chronic and recommend strict blood pressure control to keep systolic blood pressure less than 120 mmHg at all the times. 05/27/2024 - For patient's aortic dissection recommend to keep BP below 120s. Please discontinue the labetalol and continue Coreg 25 mg twice daily for better control of blood pressure. Continue nifedipine XL 30 mg once daily and uptitrate it or can start amlodipine 10 mg once daily if blood pressure is greater than 120 mmHg. Continue spironolactone 25 mg once daily as recommended by nephrology along with the Bumex 1 Mg IV twice daily for now. Renal function being monitored by nephrology closely. Recommended to call the vascular surgeon on-call for the hospital or at an outside hospital and transferred to a tertiary care center for further interventions, but was unsuccesful as they stated patient did not need any emergent surgical procedure. Recommend to continue aspirin, plavix, and statin as there is no need for anticoagulation at the present time. . 2. Acute decompensated heart failure exacerbation (EF 50 to 55% on 2022) Patient came in with shortness of breath and bilateral lower extremity swelling ? Initial BNP was more than 3280 ? Patient has a history of HFpEF and states that he follows up with block cleaner in [place] ? Patient clinically looks fluid overloaded and having shortness of breath with having to stop in between sentences. -Patient off pressors and maintaining good BP ?Echo on 03/15/2023 had the following findings: Normal LV size and function. Moderate LVH. Diastolic dysfunction stage I. Estimated EF 50 to 55%. Normal RV size and function. Trace TR. -Echo on 05/20/2024 had the following findings Small LV size, moderate LVH with low normal ejection fraction at around 50%. Flattened interatrial septum in both systole and diastole indicating both RV pressure and volume overload. Severely dilated right ventricle with moderate RV systolic dysfunction and massively dilated right atrium Moderate to severe TR and estimated RVSP around 60 mmHg indicating moderate to severe pulmonary hypertension Trace MR and dilated IVC Plan: ?Can continue Bumex 1mg BID as kidney function showed improvement along with spironolactone -Recommend to place patient on high intensity statin and aspirin ? Strict WES's ? Daily weights ?Fluid restrictions ?Low-sodium diet ? Recommend to strictly replace potassium and magnesium to keep above 4 and 2 respectively to avoid any further arrhythmias Patient's kidney function seems to be improving with BUN 33 and a creatinine of 1.7 3. Hypertensive emergency 4. NSTEMI ?Patient's initial blood pressure was 217/126 ? Troponins were elevated at 0.287 on admission and up trended to 0.567 ?EKG did not show any acute ST changes ?NSTEMI most likely type II in the setting of acute decompensated heart failure exacerbation and hypertensive emergency Plan: -Recommend no further troponins. -Completed 48 hours of heparin -Recommend to continue patient on high intensity statin, Plavix, and aspirin -Recommend to F/U nephrology recs -Recommend vasopressor support as needed as patient most likely was in septic versus cardiogenic shock. 5. Acute embolic infarct of L temporal lobe and ALEX parietal lobes -Primary care team wanted patient to undergo INESSA due to an acute stroke and thrombus in the descending aorta, but at this time patient is stable hemodynamically and could possibly decline during the procedure. ?Continue current management as per primary care team 6. Cirrhosis 7. Congestive hepatopathy 8. Ascites 9. Transaminitis 10. Hyperbilirubinemia ?Abdomen/pelvis CT shows cirrhosis and ascites ? Abdominal ultrasound showed cirrhosis ? AST 112, ALT 84 and 2 bilirubin 3.9 on admission ?Presents most likely on congestive hepatopathy most likely secondary to congestive heart failure ?Continue current management as per primary care team 11. CKD ? Initial creatinine was 2.1 and BUN 26 on admission ?Could be secondary to cardiorenal syndrome ? Continue current management as per primary care team 12. Polysubstance use (meth and THC) ? U tox was positive for meth and THC ? Continue current management as per primary care team Management of rest of the medical conditions as per primary team and other consultants. Thank you for the consult and allowing me to participate in the care of the patient. Cardiology will continue to follow. Remy Pham M.D. Interventional Cardiology Time Spent With Patient Time: Total time spent is greater than 50% in coordination of care (as documented) at patient's floor/unit and/or counseling patient:
--- NOTE | 2024-05-27 18:30 | PC.NURSE ---
Pt. refused SCDs all shift. Only apply to left leg per Dr. Barros
[2024-05-27] MEDS: carVEDILOL 12.5 MG TABLET 25 MG PO (19:12)
[2024-05-27] MEDS: SERTRALINE HCL 25 MG TABLET PO (21:32)
[2024-05-27] MEDS: PANTOPRAZOLE INJ 40 MG VIAL IVP (21:33)
--- NOTE | 2024-05-27 23:17 | PD.NEUROPROG ---
Documentation for date of: 05/27/24 Subjective Subjective Interval history: Patient was seen in telemetry with his family at the bedside. Patient denies any new symptoms. Exam - Neurology Vital Signs Temp Pulse Resp BP Pulse Ox O2 Del Method O2 Flow Rate 97.1 F 63 20 113/66 93 L High Flow Nasal Cannula 20 05/27/24 19:37 05/27/24 21:33 05/27/24 20:58 05/27/24 21:33 05/27/24 20:58 05/27/24 19:37 05/27/24 20:58 FiO2 45 05/27/24 20:58 Narrative Exam GENERAL APPEARANCE: Well hydrated, well-nourished in no acute distress. HEENT: Normocephalic, atraumatic, extraocular movements intact. Pupils: Equal reacting to light and accommodation NECK: Supple, no JVD or bruits. CARDIOVASULAR: Heart: S1, S2 heard, regular without S3-S4 or murmur no rubs or gallops. LUNGS/CHEST: Clear to auscultation bilaterally. No rails, rhonchi, or wheezing. Normal inspection. ABDOMEN: Soft, nontender, with normal bowel sounds. No pulsatile masses. No rebound, rigidity, or guarding. Normal inspection and palpation. EXTREMITIES: Normal inspection and palpation. No edema, clubbing or cyanosis. SKIN: Warm and dry without rashes. Normal inspection. MUSCULOSKELETAL: No cervical, thoracic, lumbar or midline bony tenderness. Normal inspection. NEURO: Alert, awake and oriented x3. Cranial nerves: II through XII grossly intact. Speech and language: Normal with no dysarthria or dysphasia. Motor system: Tone and bulk: Normal: Strength: moves all 4 extremities; No pronator drift noted. Deep tendon reflexes: 1+ bilaterally symmetrical. Plantar reflex: Downgoing bilaterally. Sensory system: Intact to pinprick sensation bilaterally. Coordination: Intact to [id number] and [id number] test bilaterally. No ataxia, no dysmetria, or dysdiadochokinesia noted. No intention tremors noted. Gait: Not tested. No signs of meningeal irritation noted. PSYCHIATRIC: Normal mood and affect. Objective Labs 05/28/24 05:19 05/27/24 05:00 Labs: Laboratory Results - last 24 hr 05/22/24 05/27/24 06:28 05:00 WBC 7.7 RBC 3.58 L Hgb 11.3 L Hct 32.8 L MCV 92 MCH 31.6 MCHC 34.5 RDW Std Deviation 47.3 H Plt Count 174 Neut % (Auto) 63 Lymph % (Auto) 24 [place] % (Auto) 10 Eos % (Auto) 0 Baso % (Auto) 0 Neut # (Auto) 4.9 Lymph # (Auto) 1.8 [place] # (Auto) 0.8 Eos # (Auto) 0.0 Baso # (Auto) 0.0 Immature Gran # (Auto) 0.21 H Absolute Nucleated RBC 0.00 Immature Gran % 3 H Nucleated RBC % 0 Sodium 134 L Potassium 3.6 Chloride 100 Carbon Dioxide 25.8 Anion Gap 8 BUN 33 H Creatinine 1.6 H Estim Creat Clear Calc 57.3 L eGFR 51 L BUN/Creatinine Ratio 21 H Glucose 103 Calculated Osmolality 275 Calcium 8.0 L Corrected Calcium 8.5 Phosphorus 2.5 Magnesium 2.1 Total Bilirubin 2.6 H GGT 129 H AST 134 H ALT 95 H Alkaline Phosphatase 81 Total Protein 6.6 Albumin 3.4 L Globulin 3.2 Albumin/Globulin Ratio 1.1 L ABG Interpretation ABG results: 05/20/24 05/21/24 05/22/24 17:52 04:45 00:39 ABG pH 7.36 7.42 7.53 H D ABG pCO2 33 44 D 38 ABG pO2 375 H 107 D 43 L* D ABG HCO3 19 L 29 H 31 H ABG O2 Saturation 101 H 98 80 L ABG Base Excess -6 L 3 8 H 05/22/24 05/23/24 00:56 19:04 ABG pH 7.50 H 7.55 H ABG pCO2 40 34 ABG pO2 64 L D 53 L* ABG HCO3 31 H 30 H ABG O2 Saturation 93 89 L ABG Base Excess 7 H 8 H Assessment & Plan Additional Assessment & Plan Additional Plan: 4 yrs old with PMH of HTN, ckd. heart failure with preserved EF , meth use was admitted on 05/19/20 for HTN emergency and man who presented with hypertensive emergency and Acute hypoxic respi failure . rapid respons was called over night , for change in mentation and neurology was consulted. Thrombolytic was not recommended by tele neuro last night because unclear of his last well known . head ct was negative for acute bleed. ? ?#Embolic infracts lt temporal bilatral paietal lobes . -sudden change in mentation overnight, pt is still obtunded, is on high flow -Head ct -Negative for acute hemorrhage, mass effect or midline shift -head/neck CTA- Acute left sphenoid sinusitis,Partially visualized descending thoracic aortic aneurysmal dilatation with extensive thrombus, recommend CTA chest post intravenous contrast follow-up,No significant neck arterial stenoses,No cerebral large vessel occlusions or thrombus -Echo on 05/20 showed Small LV size, moderate LVH with low normal ejection fraction at around 50% Flattened interatrial septum in both systole and diastole indicating both RV pressure and volume overload. Severely dilated right ventricle with moderate RV systolic dysfunction and massively dilated right atrium. Moderate to severe TR and estimated RVSP around 60 mmHg indicating moderate to severe pulmonary hypertension, Trace MR and dilated IVC -MRI- Multiple tiny embolic type infarcts left temporal lobe bilateral parietal lobes -Lipid pannel wnl ,TSH 2.39 ,ammonia 30 -P continue with aspirin and Plavix with statin. Patient is neurologically stable without any significant focal neurological deficit. Noted the sertraline was added recently for his mood symptoms. Advised him to participate with physical therapy evaluation as his oxygen demand goes down and then will decide about the discharge. Continue with the current management including Bumex, blood pressure management and electrolyte replacement as needed
[2024-05-28] VITALS (16 sets, daily range): BP systolic 105–129; BP diastolic 69–81; PULSE 59–69; RESP 3–26; TEMP 35.9–36.6; O2SAT 90–95; BMI 24.5
[2024-05-28 05:53] LABS: Basophils % (Auto) 0 % (0-2.5); Eosinophils # (Auto) 0.1 Thou/mm3 (0.0-0.5); Eosinophils % (Auto) 1 % (0-10); Hematocrit 34.3 % (41.0-53.0); Hemoglobin 11.6 g/dL (13.5-16.0); Immature Granulocytes % (Auto) 2 % (0-0); Immature Granulocytes Auto 0.11 Thou/mm3 (0.00-0.00); Lymphocytes # (Auto) 1.6 Thou/mm3 (1.0-4.8); Lymphocytes % (Auto) 24 % (10-50); Mean Corpuscular HGB Conc 33.8 g/dl (31.0-37.0); Mean Corpuscular Hemoglobin 31.3 pg (25.0-35.0); Mean Corpuscular Volume 93 fL (80-100); Monocytes # (Auto) 0.9 Thou/mm3 (0.0-0.8); Monocytes % (Auto) 13 % (0-12); Neutrophils # (Auto) 4.1 Thou/mm3 (1.8-7.7); Neutrophils % (Auto) 60 % (37-80); Nucleated Red Blood Cell % 0 /100 WBC (0); Platelet Count 225 Thou/mm3 (140-440); RDW Standard Deviation 48.6 fL (35.1-43.9); Red Blood Count 3.71 Miln/mm3 (4.50-5.90); White Blood Count 6.8 Thou/mm3 (3.8-10.6)
[2024-05-28 06:40] LABS: Alanine Aminotransferase 86 U/L (10-49); Albumin, Serum 3.3 gm/dL (3.5-5.0); Alkaline Phosphatase 78 U/L (46-116); Anion Gap 8 (7-16); Aspartate Amino Transferase 112 U/L (0-34); BUN/Creatinine Ratio 19 Ratio (12-20); Bilirubin,Total 2.3 mg/dL (0.3-1.2); Blood Urea Nitrogen 31 mg/dL (9-23); Calcium 8.5 mg/dL (8.3-10.6); Calcium (Corrected) 9.1 mg/dL (8.5-10.1); Carbon Dioxide 24.9 mMol/L (20.0-31.0); Chloride 103 mMol/L (98-107); Creatinine (Component) 1.6 mg/dL (0.6-1.3); Estimated Creatinine Clearance 57.3 mL/min (>60); Globulin 3.4 gm/dL (2.3-3.5); Glucose 107 mg/dL (74-106); Osmolality,Calculated 278 (275-295); Phosphorous 2.9 mg/dL (2.4-5.1); Potassium 4.6 mMol/L (3.4-5.1); Sodium 136 mMol/L (136-145); Total Protein 6.7 gm/dL (5.7-8.2); eGFR 51 See Note
[2024-05-28 06:45] LABS: ANA Screen, IFA NEGATIVE (NEGATIVE)
--- NOTE | 2024-05-28 07:15 | PD.IMPROG ---
Documentation for date of: 05/28/24 Subjective Subjective Interval history: Patient was seen at bedside this morning. No overnight events. Patient still on high flow nasal cannula. Patient is AO x 3 and more awake and alert today. Completed 48 hrs of Heparin For patient's aortic dissection recommend to keep BP below 120s. Please discontinue the labetalol and continue Coreg 25 mg twice daily for better control of blood pressure. Continue nifedipine XL 30 mg once daily and uptitrate it or can start amlodipine 10 mg once daily if blood pressure is greater than 120 mmHg. Please discontinue nifedipine Continue spironolactone 25 mg once daily as recommended by nephrology along with the Bumex 1 Mg IV twice daily for now. Renal function being monitored by nephrology closely. BUN is 31 creatinine is 1.6 and continues to improve. Recommended to call the vascular surgeon on-call for the hospital or at an outside hospital and transferred to a tertiary care center for further interventions, but was unsuccesful as they stated patient did not need any emergent surgical procedure. Recommend to continue aspirin, plavix, and statin as there is no need for anticoagulation at the present time. . Fo patient's HF. Patient had total balance of -1.6 L in the past 24 hours. Can continue Bumex 1mg BID as kidney function showed improvement Patient's kidney function seems to be improving with BUN 31 and 1.6. recommend to keep potassium and magnesium above 4 and 2 to avoid any further arrhythmias. Patient had stroke alert called due to changes in mentation and brain MRI with MRA showed multiple tiny embolic infarcts of the left temporal lobe and bilateral parietal lobes. 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 Will follow-up on neurology recommendations on anticoagulation. Echo on 05/20/2024 had the following findings Small LV size, moderate LVH with low normal ejection fraction at around 50%. Flattened interatrial septum in both systole and diastole indicating both RV pressure and volume overload. Severely dilated right ventricle with moderate RV systolic dysfunction and massively dilated right atrium Moderate to severe TR and estimated RVSP around 60 mmHg indicating moderate to severe pulmonary hypertension Trace MR and dilated IVC Exam Vital Signs Temp Pulse Resp BP Pulse Ox O2 Del Method O2 Flow Rate 97.8 F 64 22 H 122/70 95 High Flow Nasal Cannula 05/28/24 04:00 05/28/24 07:09 05/28/24 07:09 05/28/24 04:00 05/28/24 07:09 05/28/24 04:00 05/28/24 07:09 FiO2 45 05/28/24 07:09 Narrative Exam General:AO x 3, more awake and alert, disheveled Eyes: PERRL, EOMI. icteric, vision grossly intact. Eyes bulging Ears: No ear pain, no ear discharge, Hearing grossly intact. Nose: No nasal discharge. Mouth/Throat: dry mucous membranes, no redness, no lesions. Neck: Neck supple, non-tender, no cervical lymphadenopathy. Lungs: Decreased in lower lobes, No accessory muscle use. Cardio: Normal S1/S2, regular rhythm, no murmurs, no JVD Abdomen: Soft, non-tender, no palpable masses, peristalsis present, no guarding or rebound. Extremities: Symmetrical, no significant deformities, 1+ peripheral edema , non-tender, peripheral pulses presents. Skin: No rashes, no lesions, warm to touch. Neuro: No focal neurological deficits. motor and sensory intact Objective Labs 05/28/24 05:19 05/28/24 05:19 Labs: Laboratory Results - last 24 hr 05/21/24 05/28/24 13:44 05:19 WBC 6.8 RBC 3.71 L Hgb 11.6 L Hct 34.3 L MCV 93 MCH 31.3 MCHC 33.8 RDW Std Deviation 48.6 H Plt Count 225 D Neut % (Auto) 60 Lymph % (Auto) 24 [place] % (Auto) 13 H Eos % (Auto) 1 Baso % (Auto) 0 Neut # (Auto) 4.1 Lymph # (Auto) 1.6 [place] # (Auto) 0.9 H Eos # (Auto) 0.1 Baso # (Auto) 0.0 Immature Gran # (Auto) 0.11 H Absolute Nucleated RBC 0.00 Immature Gran % 2 H Nucleated RBC % 0 Sodium 136 Potassium 4.6 D Chloride 103 Carbon Dioxide 24.9 Anion Gap 8 BUN 31 H Creatinine 1.6 H Estim Creat Clear Calc 57.3 L eGFR 51 L BUN/Creatinine Ratio 19 Glucose 107 H Calculated Osmolality 278 Calcium 8.5 Corrected Calcium 9.1 Phosphorus 2.9 Magnesium 2.0 Total Bilirubin 2.3 H AST 112 H ALT 86 H Alkaline Phosphatase 78 Total Protein 6.7 Albumin 3.3 L Globulin 3.4 Albumin/Globulin Ratio 1.0 L LEONARDO Screen NEGATIVE LEONARDO Titer TNP LEONARDO Titer 2 TNP LEONARDO Titer 3 TNP LEONARDO Pattern TNP LEONARDO Pattern 2 TNP LEONARDO Pattern 3 TNP ABG Interpretation ABG results: 05/20/24 05/21/24 05/22/24 17:52 04:45 00:39 ABG pH 7.36 7.42 7.53 H D ABG pCO2 33 44 D 38 ABG pO2 375 H 107 D 43 L* D ABG HCO3 19 L 29 H 31 H ABG O2 Saturation 101 H 98 80 L ABG Base Excess -6 L 3 8 H 05/22/24 05/23/24 00:56 19:04 ABG pH 7.50 H 7.55 H ABG pCO2 40 34 ABG pO2 64 L D 53 L* ABG HCO3 31 H 30 H ABG O2 Saturation 93 89 L ABG Base Excess 7 H 8 H Assessment & Plan A&P Narrative 54-year-old male with past medical history of meth use, HFpEF (50 to 55% on 2022), CKD, and hypertension was admitted to the hospital on 05/20/2024 due to acute decompensated heart failure exacerbation. 1. 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 Plan: -Appears to be chronic and recommend strict blood pressure control to keep systolic blood pressure less than 120 mmHg at all the times. 05/27/2024 - For patient's aortic dissection recommend to keep BP below 120s. Please discontinue the labetalol and continue Coreg 25 mg twice daily for better control of blood pressure. Continue nifedipine XL 30 mg once daily and uptitrate it or can start amlodipine 10 mg once daily if blood pressure is greater than 120 mmHg. Please discontinue nifedipine Continue spironolactone 25 mg once daily as recommended by nephrology along with the Bumex 1 Mg IV twice daily for now. Renal function being monitored by nephrology closely. BUN is 31 creatinine is 1.6 and continues to improve. Recommended to call the vascular surgeon on-call for the hospital or at an outside hospital and transferred to a tertiary care center for further interventions, but was unsuccesful as they stated patient did not need any emergent surgical procedure. Recommend to continue aspirin, plavix, and statin as there is no need for anticoagulation at the present time. . 2. Acute decompensated heart failure exacerbation (EF 50 to 55% on 2022) Patient came in with shortness of breath and bilateral lower extremity swelling ? Initial BNP was more than 3280 ? 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 Patient clinically looks fluid overloaded and having shortness of breath with having to stop in between sentences. -Patient off pressors and maintaining good BP ?Echo on 03/15/2023 had the following findings: Normal LV size and function. Moderate LVH. Diastolic dysfunction stage I. Estimated EF 50 to 55%. Normal RV size and function. Trace TR. -Echo on 05/20/2024 had the following findings Small LV size, moderate LVH with low normal ejection fraction at around 50%. Flattened interatrial septum in both systole and diastole indicating both RV pressure and volume overload. Severely dilated right ventricle with moderate RV systolic dysfunction and massively dilated right atrium Moderate to severe TR and estimated RVSP around 60 mmHg indicating moderate to severe pulmonary hypertension Trace MR and dilated IVC Plan: ?Can continue Bumex 1mg BID as kidney function showed improvement along with spironolactone -Recommend to place patient on high intensity statin and aspirin ? Strict WES's ? Daily weights ?Fluid restrictions ?Low-sodium diet ? Recommend to strictly replace potassium and magnesium to keep above 4 and 2 respectively to avoid any further arrhythmias Patient's kidney function seems to be improving with BUN 31 and a creatinine of 1.6 3. Hypertensive emergency 4. NSTEMI ?Patient's initial blood pressure was 217/126 ? Troponins were elevated at 0.287 on admission and up trended to 0.567 ?EKG did not show any acute ST changes ?NSTEMI most likely type II in the setting of acute decompensated heart failure exacerbation and hypertensive emergency Plan: -Recommend no further troponins. -Completed 48 hours of heparin -Recommend to continue patient on high intensity statin, Plavix, and aspirin -Recommend to F/U nephrology recs -Recommend vasopressor support as needed as patient most likely was in septic versus cardiogenic shock. 5. Acute embolic infarct of L temporal lobe and ALEX parietal lobes -Primary care team wanted patient to undergo INESSA due to an acute stroke and thrombus in the descending aorta, but at this time patient is stable hemodynamically and could possibly decline during the procedure. ?Continue current management as per primary care team 6. Cirrhosis 7. Congestive hepatopathy 8. Ascites 9. Transaminitis 10. Hyperbilirubinemia ?Abdomen/pelvis CT shows cirrhosis and ascites ? Abdominal ultrasound showed cirrhosis ? AST 112, ALT 84 and 2 bilirubin 3.9 on admission ?Presents most likely on congestive hepatopathy most likely secondary to congestive heart failure ?Continue current management as per primary care team 11. CKD ? Initial creatinine was 2.1 and BUN 26 on admission ?Could be secondary to cardiorenal syndrome ? Continue current management as per primary care team 12. Polysubstance use (meth and THC) ? U tox was positive for meth and THC ? Continue current management as per primary care team Management of rest of the medical conditions as per primary team and other consultants. Thank you for the consult and allowing me to participate in the care of the patient. Cardiology will continue to follow. Remy Pham M.D. Interventional Cardiology Time Spent With Patient Time: Total time spent is greater than 50% in coordination of care (as documented) at patient's floor/unit and/or counseling patient:
--- NOTE | 2024-05-28 07:58 | PD.NEPHPROG ---
Documentation for date of: 05/28/24 Subjective Subjective Interval history: Interval history: Mr. De is a 54-year-old male with past medical history of hypertension, CKD stage IIIb, HFpEF, methamphetamine use was admitted for acute hypoxic respiratory failure due to CHF exacerbation and hypertensive emergency. Patient was upgraded to ICU due to altered mental status due to hypotension and hypoxia. Therefore patient ended up getting intubated for airway protection and started on Levophed during ICU course. Patient was given reversal for calcium channel prasanna with calcium chloride x 3 after which patient's blood pressure showed improvement. 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 Patient's head and neck CTA was significant for descending thoracic aorta aneurysmal dilation with extensive thrombus and radiology recommended CTA chest post IV contrast follow-up. Patient is currently on Bumex 2 mg IV twice daily for IV diuresis, Zosyn for pneumonia coverage, heparin GGT due to concern of NSTEMI, Coreg, Flomax and DuoNeb treatments. Nephrology team consulted as patient has LATASHA on CKD with BUN 54, creatinine 2.7, GFR 27 per chart review patient's baseline GFR is 44. Patient seen at bedside, patient is arousable to sternal rub, unable to answer questions, not conversational, patient's mother at bedside case discussed extensively with her. Patient is currently on IV Bumex, will be given IV contrast for CTA. Discussed with patient's mother at bedside that if patient's renal function continues to decline patient might need dialysis temporarily, patient's mother is the primary decision maker and agrees with dialysis if needed. 05/26/2024: Patient seen at the bedside in telemetry. Patient was not a candidate for transfer, his condition continues to be managed medically with aggressive BP control with goal SBP <130. Patient denies chest pain, headache, abdominal pain. UO 2.2 L. Labs showed sodium 134, potassium 3.6, BUN 39, creatinine 1.7, GFR 58.3, kidney functions improving. Will continue to monitor renal function and urine output. Continues to be on high flow, oxygen requirements are decreasing, right now on 15 L 40% FiO2. 05/27/2024 patient currently seen in telemetry. Deemed not a candidate for transfer. Resting comfortably. Still on high flow oxygen. Blood pressure 139/81, heart rate 67. Hemoglobin 11.3. Sodium 134, potassium 3.6, BUN 33, creatinine 1.6, GFR 51, calcium 8.5, phosphorus 2.5, magnesium 2.1, AST 134, ALT 95, albumin 3.4 05/28/2024 patient currently seen in telemetry. Still remains on high flow oxygen. Wants to go home. Labs, medications have been reviewed. Currently on diuretics. Blood pressure seems to be stable. Patient has [place] type B aortic dissection-medical management per vascular team. Will start weaning down on oxygen. Suggested to move out of bed to chair. Not ready for discharge yet. Review of Systems Review of Systems Narrative Review of Systems: Patient complaining of shortness of breath. Denies any chest pain. Decreased appetite. Feeling fatigue and tired Exam Vital Signs Temp Pulse Resp BP Pulse Ox O2 Del Method O2 Flow Rate 36.6 C 64 22 H 122/70 95 High Flow Nasal Cannula 25 05/28/24 04:00 05/28/24 07:09 05/28/24 07:09 05/28/24 04:00 05/28/24 07:09 05/28/24 04:00 05/28/24 07:09 FiO2 45 05/28/24 07:09 Narrative Exam Physical Exam General: Awake and in no acute distress. Comfortable HEENT: Normocephalic, atraumatic, mucous membranes moist. Heart: Regular rate and rhythm, no murmurs. Lungs: Fine crackles at the bases Abdomen: Soft, nondistended, nontender, positive bowel sounds. ?No guarding or rebound tenderness. Neurologic: Alert and oriented x3, no gross neurological deficit, and patient able to move all 4 extremities. Extremities: No edema. Skin: No rash or ecchymoses. Objective Labs 05/29/24 05:15 05/29/24 05:15 Labs: Laboratory Results - last 24 hr 05/21/24 05/28/24 13:44 05:19 WBC 6.8 RBC 3.71 L Hgb 11.6 L Hct 34.3 L MCV 93 MCH 31.3 MCHC 33.8 RDW Std Deviation 48.6 H Plt Count 225 D Neut % (Auto) 60 Lymph % (Auto) 24 [place] % (Auto) 13 H Eos % (Auto) 1 Baso % (Auto) 0 Neut # (Auto) 4.1 Lymph # (Auto) 1.6 [place] # (Auto) 0.9 H Eos # (Auto) 0.1 Baso # (Auto) 0.0 Immature Gran # (Auto) 0.11 H Absolute Nucleated RBC 0.00 Immature Gran % 2 H Nucleated RBC % 0 Sodium 136 Potassium 4.6 D Chloride 103 Carbon Dioxide 24.9 Anion Gap 8 BUN 31 H Creatinine 1.6 H Estim Creat Clear Calc 57.3 L eGFR 51 L BUN/Creatinine Ratio 19 Glucose 107 H Calculated Osmolality 278 Calcium 8.5 Corrected Calcium 9.1 Phosphorus 2.9 Magnesium 2.0 Total Bilirubin 2.3 H AST 112 H ALT 86 H Alkaline Phosphatase 78 Total Protein 6.7 Albumin 3.3 L Globulin 3.4 Albumin/Globulin Ratio 1.0 L LEONARDO Screen NEGATIVE LEONARDO Titer TNP LEONARDO Titer 2 TNP LEONARDO Titer 3 TNP LEONARDO Pattern TNP LEONARDO Pattern 2 TNP LEONARDO Pattern 3 TNP ABG Interpretation ABG results: 05/20/24 05/21/24 05/22/24 17:52 04:45 00:39 ABG pH 7.36 7.42 7.53 H D ABG pCO2 33 44 D 38 ABG pO2 375 H 107 D 43 L* D ABG HCO3 19 L 29 H 31 H ABG O2 Saturation 101 H 98 80 L ABG Base Excess -6 L 3 8 H 05/22/24 05/23/24 00:56 19:04 ABG pH 7.50 H 7.55 H ABG pCO2 40 34 ABG pO2 64 L D 53 L* ABG HCO3 31 H 30 H ABG O2 Saturation 93 89 L ABG Base Excess 7 H 8 H Assessment & Plan Additional Assessment & Plan Additional Plan: Mr. De is a 54-year-old male with past medical history of hypertension, CKD stage IIIb, HFpEF, methamphetamine use was admitted for acute hypoxic respiratory failure due to CHF exacerbation and hypertensive emergency. Nephrology team consulted for LATASHA on CKD. #LATASHA on CKD stage IIIb, improving Creatinine 1.6 with a GFR 51 LFTs mildly elevated probably from passive liver congestion Patient has good urine output, produced about 2.35 L in the last 24 hours Plan: -Currently on IV Bumex 1 mg IVP twice daily -Strict I&O's -Dose medication renally -Avoid nephrotoxic medications -Monitor renal panel closely #[place] type B dissecting aortic aneurysm--medical management #Acute hypoxic encephalopathy-resolved #Methamphetamine abuse disorder #Marijuana abuse disorder #Shock, resolved #Hypertension #Acute exacerbation of HFpEF-compensated #Acute hypoxic respiratory failure 2/2 HFpEF exacerbation and Aspiration PNA-compensated #Aspiration pneumonia #Cystic lung 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
[2024-05-28] MEDS: amLODIPine BESYLATE 5 MG TABLET 10 MG PO (08:28)
[2024-05-28] MEDS: carVEDILOL 12.5 MG TABLET 25 MG PO ×2 (08:28→17:18)
[2024-05-28] MEDS: ASPIRIN EC 81 MG TABEC PO (08:29)
[2024-05-28] MEDS: CLOPIDOGREL BISULFATE 75 MG TABLET PO (08:29)
[2024-05-28] MEDS: NIFEdipine XL 30 MG TABCR PO (08:29)
[2024-05-28] MEDS: SPIRONOLACTONE 25 MG TABLET PO (08:29)
[2024-05-28] MEDS: BUMETANIDE INJ 0.25 MG/ML VIAL 4 ML 1 MG IVP ×2 (08:29→20:04)
--- NOTE | 2024-05-28 08:43 | PC.SS ---
SS follow up note;Completed 48 hours of heparin, recommend to F/U nephrology recs.
[2024-05-28 11:41] LABS: Iron 42 mcg/dL (65-175)
[2024-05-28 11:54] LABS: Percent Iron Saturation 15 % (20-55); Total Iron Binding Capacity 274 mcg/dL (250-425); Unsaturated Iron Binding 232 (225-295)
--- NOTE | 2024-05-28 13:49 | ESPR_ITS ---
<Statement entered by Ray Barajas MD - 05/28/24 14:45> Patient was examined at bedside this morning, will try to decrease his high flow , added amlodipine as per cardiology recces. will continue to monitor her BP and maintain less than 120 . I discussed with and supervised my co-resident involved in the care of this patient. I agree with the assessment and plan as documented above. Ray Barajas,PGY-3 Disclaimer: Despite multiple revisions, due to the dictation software being used, the document below may not be free of grammatical errors including phonetic/typographic errors. However, this does not deter from our commitment to providing health care in the patient's best interest in mind. Documentation for date of: 05/28/24 Subjective Subjective Interval history: Patient is a 54-year-old male with a past medical history of hypertension, chronic kidney disease stage III, history of congestive heart failure HFpEF- diastolic dysfunction stage I 50 to 55% (03/15/2023), and history of poly- substance use disorder (meth/THC) who was initially admitted for acute hypoxic respiratory failure and CHF exacerbation, then found to have an aortic dissection, type B. Patient reports no overnight events. Patient continues to have a stable aortic dissection-type b-and reports no chest pain or dyspnea. Patient continues to saturate well on high flow, currently Rate of 25 and FiO2 45-->currently trying to decrease down on high flow. Patient reports Patient does not report any pain, denied right tibial pain or hip pain. Exam Vital Signs Temp Pulse Resp BP Pulse Ox O2 Del Method O2 Flow Rate 96.8 F 61 22 H 128/81 94 L High Flow Nasal Cannula 20 05/28/24 12:00 05/28/24 12:00 05/28/24 12:00 05/28/24 12:00 05/28/24 12:00 05/28/24 12:00 05/28/24 12:00 FiO2 35 05/28/24 12:00 Narrative Exam General Appearance: Alert & Oriented X3, well-nourished male who is lying in bed in no acute distress HEENT: Skull symmetrical and atraumatic. Conjunctivae pink and moist. Pupils equal, round, reactive to light and accommodation (PERRL). External ear without lesion or discharge. Straight, nares patient, mucosa pink, no discharge. Cardio: Normal Rate and Rhythm with S1 and S2 heart sounds. No murmurs or extra heart sounds auscultated. No bruits on carotid auscultation. No peripheral edema or cyanosis. Lungs: Symmetric with good expansion. Chest and back non-tender. Breath sounds vesicular without crackles, wheezing or rhonchi Abdomen: Non-tender, Non-distended, Normal Reactive Bowel Sounds Neuro: Alert, cooperative, oriented to person, place, and time. Speech clear. CN grossly intact. Upper motor strength 5/5 and Lower motor strength 5/5. Sensation intact. Objective Labs 05/28/24 05:19 05/28/24 05:19 Labs: Laboratory Results - last 24 hr 05/21/24 05/28/24 13:44 05:19 WBC 6.8 RBC 3.71 L Hgb 11.6 L Hct 34.3 L MCV 93 MCH 31.3 MCHC 33.8 RDW Std Deviation 48.6 H Plt Count 225 D Neut % (Auto) 60 Lymph % (Auto) 24 [place] % (Auto) 13 H Eos % (Auto) 1 Baso % (Auto) 0 Neut # (Auto) 4.1 Lymph # (Auto) 1.6 [place] # (Auto) 0.9 H Eos # (Auto) 0.1 Baso # (Auto) 0.0 Immature Gran # (Auto) 0.11 H Absolute Nucleated RBC 0.00 Immature Gran % 2 H Nucleated RBC % 0 Sodium 136 Potassium 4.6 D Chloride 103 Carbon Dioxide 24.9 Anion Gap 8 BUN 31 H Creatinine 1.6 H Estim Creat Clear Calc 57.3 L eGFR 51 L BUN/Creatinine Ratio 19 Glucose 107 H Calculated Osmolality 278 Calcium 8.5 Corrected Calcium 9.1 Phosphorus 2.9 Magnesium 2.0 Iron 42 L TIBC 274 Iron Saturation 15 L Unsat Iron Binding 232 Total Bilirubin 2.3 H AST 112 H ALT 86 H Alkaline Phosphatase 78 Total Protein 6.7 Albumin 3.3 L Globulin 3.4 Albumin/Globulin Ratio 1.0 L LEONARDO Screen NEGATIVE LEONARDO Titer TNP LEONARDO Titer 2 TNP LEONARDO Titer 3 TNP LEONARDO Pattern TNP LEONARDO Pattern 2 TNP LEONARDO Pattern 3 TNP ABG Interpretation ABG results: 05/20/24 05/21/24 05/22/24 17:52 04:45 00:39 ABG pH 7.36 7.42 7.53 H D ABG pCO2 33 44 D 38 ABG pO2 375 H 107 D 43 L* D ABG HCO3 19 L 29 H 31 H ABG O2 Saturation 101 H 98 80 L ABG Base Excess -6 L 3 8 H 05/22/24 05/23/24 00:56 19:04 ABG pH 7.50 H 7.55 H ABG pCO2 40 34 ABG pO2 64 L D 53 L* ABG HCO3 31 H 30 H ABG O2 Saturation 93 89 L ABG Base Excess 7 H 8 H Quality Measures Quality Measures VTE prophylaxis (Holding heparin ) Assessment & Plan Assessment Current Active Medications: Generic Name Dose Route Start Last Admin Trade Name Freq PRN Reason Stop Dose Admin Acetaminophen 650 mg 05/20/24 01:03 05/24/24 23:11 Acetaminophen 325 Mg Tablet PO 06/19/24 01:02 650 mg Q6H PRN Administration Pain 1-3 or Fever >100.3 Hydrocodone Bitart/Acetaminophen 1 tab 05/25/24 07:22 05/27/24 05:25 Hydrocodone/Apap 5/325 Tablet PO 05/30/24 07:21 1 tab Q4HR PRN Administration PAIN SCALE 4-6 (Moderate Amlodipine Besylate 10 mg 05/28/24 09:00 05/28/24 08:28 Amlodipine Besylate 5 Mg Tablet PO 06/27/24 08:59 10 mg QDAY MICAH Administration Aspirin 81 mg 05/26/24 09:00 05/28/24 08:29 Aspirin Ec 81 Mg Tabec PO 06/25/24 08:59 81 mg QDAY MICAH Administration Bumetanide 1 mg 05/24/24 13:15 05/28/24 08:29 Bumetanide Inj 0.25 Mg/Ml Vial 4 Ml IVP 06/23/24 13:14 1 mg BID MICAH Administration Carvedilol 25 mg 05/27/24 19:00 05/28/24 08:28 Carvedilol 12.5 Mg Tablet PO 06/26/24 18:59 25 mg BIDWM MICAH Administration Clopidogrel Bisulfate 75 mg 05/26/24 09:00 05/28/24 08:29 Clopidogrel Bisulfate 75 Mg Tablet PO 06/16/24 08:59 75 mg QDAY MICAH Administration Ferrous Sulfate 325 mg 05/28/24 13:45 Ferrous Sulf 325 Mg Tablet PO 06/27/24 13:44 QOD MICAH Labetalol HCl 10 mg 05/25/24 10:20 05/27/24 14:57 Labetalol Inj 5 Mg/Ml Vial 20 Ml IVP 06/24/24 10:12 10 mg Q4HR PRN Administration SBP > 120 Morphine Sulfate 1 mg 05/25/24 07:22 Morphine Sulf Inj 10 Mg/Ml Vial IVP 05/30/24 07:21 Q4HR PRN PAIN SCALE 7-10 (Severe Nifedipine 30 mg 05/26/24 09:00 05/28/24 08:29 Nifedipine Xl 30 Mg Tabcr PO 06/25/24 08:59 30 mg QDAY MICAH Administration Ondansetron HCl 4 mg 05/20/24 01:03 Ondansetron Inj 2 Mg/Ml Inj 2 Ml IV 06/19/24 01:02 Q6H PRN NAUSEA OR VOMITING Protocol Pantoprazole Sodium 40 mg 05/20/24 21:00 05/27/24 21:33 Pantoprazole Inj 40 Mg Vial IVP 06/19/24 20:59 40 mg HS MICAH Administration Pharmacy Consult 1 each 05/21/24 08:42 Pharmacy Renal Dose Adjustment 1 Ea XX 06/20/24 08:41 PRN PRN CONSULT Polyethylene Glycol 17 gm 05/25/24 14:45 05/28/24 08:30 Polyethylene Glycol 17 Gm Packet PO 06/24/24 14:44 Not Given QDAY MICAH Sennosides 1 tab 05/23/24 07:55 05/26/24 20:31 Senna Tablet PO 06/19/24 08:59 1 tab QDAY PRN Administration constipation Protocol Sertraline HCl 25 mg 05/26/24 21:00 05/27/24 21:32 Sertraline Hcl 25 Mg Tablet PO 06/25/24 20:59 25 mg HS MICAH Administration Spironolactone 25 mg 05/29/24 09:00 Spironolactone 25 Mg Tablet PO 06/28/24 08:59 DAILY MICAH Plan This patient is a 54-year-old male with a past medical history of hypertension, chronic kidney disease stage III, history of congestive heart failure HFpEF- diastolic dysfunction stage I 50 to 55% (03/15/2023), and history of poly- substance use disorder (meth/THC) who was initially admitted for acute hypoxic respiratory failure and CHF exacerbation, then upgraded to ICU and downgraded on 05/22/2024-->managing aortic dissection type B. #Aortic Dissection, Type B [place] #Acute hypoxic respiratory Failure, improving #Pneumonia, improved #Aortic thrombus, less likely #Obstructive Shock (?) #Sepsis, secondary to pneumonia with end organ failure, Resolved. Etiology: Acute hypoxic respiratory failure is likely multi-factorial but CHF exacerbation likely contributing to hypoxemia on addmission given elevated BNP and chest xray on admission showing pulmonary vascular congestion. Sepsis secondary to pneumonia likely contributing to increased work of breathing given update Cxr showing bilateral pneumonia. Consider aspiration pneumonia and increasing Zosyn dosage. Sepsis noted overnight, with a Fever of 101, RR 23, with source of infection as noted in Cxr showing pneumonia. Although Well's criteria on admission was 0, concern for PE increased given possible thrombus noted on CTA neck. Current Well's criteria 3. On heparin drip for thrombus. Thrombus could also be causing respiratory failure leading to possible obstructive shock previous to ICU admission. 05/24/2024-CTA obtained showing aortic dissection, [place] type B. Patients SBP today between 120-140. Currently working on transferring patient. [facility] rejected patient as vascular surgery stated patient is hemodynamically stable. 05/24/2024: Patient continued to have elevated blood pressure Labetolol given X3 throught out the day and hydralazine x1 at 6 PM. Coreg increased to 25 mg PO BIDWM 05/26/2024: Patient was given labetalol IV 60 mg overnight for blood pressure management. Discontinued Coreg today this morning. 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 Berger, heel sewer for patient's pulmonary arterial hypertension and per recommendation started on spironolactone 25 mg once daily 05/27/2024: Labetalol 50 mg BID-->D/C. Started patient on Coreg 25 mg BID, continue Nifedipine 30 mg Qday, spironolactone 25 mg once a day. Start amlodipine 10 mg Qday tomorrow 05/28/2024: Amlodipine added. Systolic Blood pressure continues to be near the 120s. Consider going up on Nifedipine tomorrow. Plan ? restart Coreg 25 mg BID, nifedipine XL 30 mg once daily, added spironolactone 25 mg once daily, and amlodpine -Discontinue Labetalol 50 mg BID -Labetalol IV 10 mg IV Q4HR PRN, for SBP >130 -Goal Systolic blood pressure at or near <120 with MAP >70 -If blood pressure remains high and HR <60, consult ICU-->consider nitroprusside -Holding Heparin, given possible hemorrhage into Psoas muscle -Type and screen placed. -Zosyn 3.375 g (05/22/2024-05/23/2024)-->Augmentin 500 BID (05/23--05/26) -blood culture-NO growth after 48 Hours. -Continue highflow support, until able to titrate down on FiO2 to reach [place] #CHF Exacerbation, imroving #CHF, HFpEF systolic dysfunction with right heart failure EF 50% #Pulmonary HTN #Cor Pulmonale #Hypertension #NSTEMI I vs II (?) #Hypertensive Emergency, Resolved #Cardiogenic Shock, Resolved. Etiology: Patient has an extensive history of CHF, systolic dysfunciton with an EF of 50% and elevated pulmonary artery pressure with atrial dilation. In the setting of methamphetamine use, this is likely the cause as both are highly associated with atrial dilation and contributing to CHF-->consider Cor Pulmonale as left ventricle appears normal size and EKG noted right ventricle hypertrophy. On admission, patient likely suffered cardiogenic show from possible vasopasm from meth us and multiple anti-hypertensive medication. Now presenting with troponemia with no ST elevation and likely NSTEMI type II but type I can not be rule out. Diagnostics: Echo: Systolic Dysfunciton, massively dilated right atrium, EF 50%, RVSP 60 mm Hg (moderate severe pulmonary hypertension) Troponin (05/22/2024) 2.926 and 2.721 EKG (05/21/2024): Sinus Tachycardia Current output:Urine output: 2200 mL with negative balance of 1400 mL. Weight: 93 kg. Patient needs standing weight every day for accurate measurements Plan -Continue diuresis with Bumex 1 mg IVP BID -Daily weight checks in standing position -Fluid Restricted -Diet, Na restricted -Keep >4 and Mg >2 -Cardiology Consulted, Dr. Pham, appreciate recommendations -Consider bladder US if need be overnight #Acute Metabolic Encepholopathy, improved #Bilateral embolic stroke #Hypoxemia vs Sepsis vs stroke Etiology: Likely secondary to hypoxemia given CHF exacerbation on admission requiring intubation prior to being on floors and ischemic stroke as noted on MRI brain DDx: Poly-substance Use disorder secondary to methamphetamine as withdraw can present as hyperisonia or insominia vs Sepsis, improved -from CAP/Aspiration Diagnostics: -Head/Neck CTA (05/22/2024): Partially visualized descending thoracic aortic aneurysmal dilation w/ extensive thrombus, CTA recommend . NO significan neck arterial stenoses. No cerebral large vessel occlusions or thrombus. -MRI Brain (05/22/2024): Multiple tiny embolic type infartcs left temporal lobe bilateral parietal lobes as above -Lipid Panetl Triglycerides 71, Cholesterol 92, LDL 49, HDL 29, -TSH 2.39 -Utox Positive THC and Meth -Chest x-ray: Mild Bibasilar Pneumonia -CT Head: negative for hemorrhage or mass effect. -LEONARDO-NEGATIVE ASCVD 3.6% 10 year cardiovascular risk, consider moderate to high intensity, currently no Atorvastatin to be added Plan: ? Continuing aspirin, Plavix and statin therapy per neurology recommendation -Heparin Drip, stopped given risk of bleeding into the Psoas muscle, possible hemorrhage -Hypercoaguable panel by Dr. Olivares -Avoid Hyperthermia and keep Euglycemic -currently no plans for INESSA -Speech Evaluation: Diet Renal- Dysphagia 3 -Physical Therapy:Home with Oxygen & Home Health -Out of Permissive HTN -consider bupropion if withdraw symptoms are present -Neurology Consulted, appreciate recommendations, neurology #LATASHA on CKD III-->CKD III #hypokalemia Etiology: Patient has a past medical history of CHF with a BUN/Cr ratio of 19, thus maybe pre-renal given shock and CHF exacerbation, but worsening CKD likely given intrinsic failure. Initially patient was GFR of 31, now GFR worsening at 27, thus progressing towards end renal failure thus dialysis maybe a possibility. DDx: CKD secondary to Intrinsci renal failure from Meth use as it has been to lead to chronic kidney disease vs post renal obstruction given BPH Diagnostics: 05/28: BUN 31, creatinine 1.6, GFR 51 Plan: -Continue to replete electrolytes in setting of Bumex -Continue Bumex 1 mg IVP BID -Avoid nephrotoxins -renally dose medication -follow BUN & Cr -renal diet # Electrolyte disturbance # Hypophosphatemia Plan ? Continue to replete potassium and phosphate as need # Depression ? Patient was feeling sad and depressive. Plan: ? Started sertraline 25 mg at bedtime #Cirrhosis secondary to Alcohol Use #Hyperbilirubinemia #Mild Transamitis Etiolgoy: Given shock, during ICU admission, likely secondary to hepatic ischemia and complicated by CHF exacerbation causing cardio-hepatic damage. History of Alcohol use disorder likely contributing to cirrhosis. Less likely secondary to infectious cause as hepatitis is negative vs autoimmune condition. LEONARDO and GGT pending. Plan -GGT-->129 (H) -monitor AST/ALT -monitor total bili #Normocytic Anemia #Acute blood loss Likely secondary in the setting of acute blood loss secondary to aortic dissection & hemorrhage at the psoas Diagnostics: Iron 42 L, TIBC 274, Iron Saturation 15 L, Unsat Iron Binding 232 Plan -Iron tablets #BPH Plan -no acute intervention -holding Tamulosin Health Maintenance: FEN: Renal Diet, Dysphagia 3 DVT: Holding Heparin, secondary to hemorrhage into psoas muscle; Compression Device Code: Full Code Disp: Pt is currently admitted to floors for further management of acute hypoxic respiratory failure due to right heart failure, aortic dissection type B [place] and ischemic embolic stroke. - The patient's plan was discussed with attending Dr. Matute and senior residents Dr. Karl Barros MD PGY1 Internal Medicine Attending Provider Attestation/Addendum I, Luana Matute, DO, attest that I was physically present for the carbajal portions of the service and evaluated the patient with the resident and I reviewed and discussed the case with the resident and agree with the resident's findings and plans of care as documented above Patient seen and eval this a.m. He remains on high flow nasal cannula with a flow of 25 and FiO2 40. Patient is anxious to go home. Will continue to wean down oxygen at this time. Blood pressure remained stable at this time with Aldactone, nifedipine and Coreg. He remains on Bumex 1 mg twice daily. Bilateral lower extremity edema appears improved. Will continue to maintain systolic blood pressure below 120s and heart rate in the 60s. Counseled patient regarding his current condition to be compliant with his medications and cessation of methamphetamine use. Patient said he promised that he will be compliant with his medications and not go back to drugs. Patient will need home health on discharge and O2. Will continue to titrate as tolerated.
[2024-05-28] MEDS: FERROUS SULF 325 MG TABLET PO (14:35)
[2024-05-28] MEDS: PANTOPRAZOLE INJ 40 MG VIAL IVP (20:04)
[2024-05-28] MEDS: SERTRALINE HCL 25 MG TABLET PO (20:05)
--- NOTE | 2024-05-28 23:56 | PD.VPROG1 ---
Telemedicine visit statement This visit was conducted with the use of phone was obtained on 05/28/24 at 2356. Documentation for date of: 05/28/24 Subjective Subjective Interval history: Patient is seen in telemetry. No new symptoms reported. Virtual exam Vital Signs Temp Pulse Resp BP Pulse Ox O2 Del Method O2 Flow Rate 97.0 F 62 22 H 105/70 93 L High Flow Nasal Cannula 16 05/28/24 20:00 05/28/24 23:37 05/28/24 23:37 05/28/24 20:04 05/28/24 23:37 05/28/24 20:00 05/28/24 23:37 FiO2 40 05/28/24 23:37 Objective Labs 05/30/24 05:15 05/30/24 05:15 Labs: Laboratory Results - last 24 hr 05/21/24 05/28/24 13:44 05:19 WBC 6.8 RBC 3.71 L Hgb 11.6 L Hct 34.3 L MCV 93 MCH 31.3 MCHC 33.8 RDW Std Deviation 48.6 H Plt Count 225 D Neut % (Auto) 60 Lymph % (Auto) 24 [place] % (Auto) 13 H Eos % (Auto) 1 Baso % (Auto) 0 Neut # (Auto) 4.1 Lymph # (Auto) 1.6 [place] # (Auto) 0.9 H Eos # (Auto) 0.1 Baso # (Auto) 0.0 Immature Gran # (Auto) 0.11 H Absolute Nucleated RBC 0.00 Immature Gran % 2 H Nucleated RBC % 0 Sodium 136 Potassium 4.6 D Chloride 103 Carbon Dioxide 24.9 Anion Gap 8 BUN 31 H Creatinine 1.6 H Estim Creat Clear Calc 57.3 L eGFR 51 L BUN/Creatinine Ratio 19 Glucose 107 H Calculated Osmolality 278 Calcium 8.5 Corrected Calcium 9.1 Phosphorus 2.9 Magnesium 2.0 Iron 42 L TIBC 274 Iron Saturation 15 L Unsat Iron Binding 232 Total Bilirubin 2.3 H AST 112 H ALT 86 H Alkaline Phosphatase 78 Total Protein 6.7 Albumin 3.3 L Globulin 3.4 Albumin/Globulin Ratio 1.0 L LEONARDO Screen NEGATIVE LEONARDO Titer TNP LEONARDO Titer 2 TNP LEONARDO Titer 3 TNP LEONARDO Pattern TNP LEONARDO Pattern 2 TNP LEONARDO Pattern 3 TNP ABG Interpretation ABG results: 05/20/24 05/21/24 05/22/24 17:52 04:45 00:39 ABG pH 7.36 7.42 7.53 H D ABG pCO2 33 44 D 38 ABG pO2 375 H 107 D 43 L* D ABG HCO3 19 L 29 H 31 H ABG O2 Saturation 101 H 98 80 L ABG Base Excess -6 L 3 8 H 05/22/24 05/23/24 00:56 19:04 ABG pH 7.50 H 7.55 H ABG pCO2 40 34 ABG pO2 64 L D 53 L* ABG HCO3 31 H 30 H ABG O2 Saturation 93 89 L ABG Base Excess 7 H 8 H Assessment & Plan Assessment 54 yrs old with PMH of HTN, ckd. heart failure with preserved EF , meth use was admitted on 05/19/20 for HTN emergency and man who presented with hypertensive emergency and Acute hypoxic respi failure . rapid respons was called over night , for change in mentation and neurology was consulted. Thrombolytic was not recommended by tele neuro last night because unclear of his last well known . head ct was negative for acute bleed. ? ?#Embolic infracts lt temporal bilatral paietal lobes . -sudden change in mentation overnight, pt is still obtunded, is on high flow -Head ct -Negative for acute hemorrhage, mass effect or midline shift -head/neck CTA- Acute left sphenoid sinusitis,Partially visualized descending thoracic aortic aneurysmal dilatation with extensive thrombus, recommend CTA chest post intravenous contrast follow-up,No significant neck arterial stenoses,No cerebral large vessel occlusions or thrombus -Echo on 05/20 showed Small LV size, moderate LVH with low normal ejection fraction at around 50% Flattened interatrial septum in both systole and diastole indicating both RV pressure and volume overload. Severely dilated right ventricle with moderate RV systolic dysfunction and massively dilated right atrium. Moderate to severe TR and estimated RVSP around 60 mmHg indicating moderate to severe pulmonary hypertension, Trace MR and dilated IVC -MRI- Multiple tiny embolic type infarcts left temporal lobe bilateral parietal lobes -Lipid pannel wnl ,TSH 2.39 ,ammonia 30 -P continue with aspirin and Plavix with statin. Patient is neurologically stable without any significant focal neurological deficit. Noted the sertraline was added recently for his mood symptoms. Advised him to participate with physical therapy evaluation as his oxygen demand goes down and then will decide about the discharge. Continue with the current management including Bumex, aggressive blood pressure management
[2024-05-29] VITALS (16 sets, daily range): BP systolic 120–157; BP diastolic 77–91; PULSE 60–70; RESP 20–28; TEMP 36.1–36.9; O2SAT 91–96; BMI 26.6
[2024-05-29] MEDS: LABETALOL INJ 5 MG/ML VIAL 20 ML 10 MG IVP ×3 (00:09→22:32)
[2024-05-29 06:21] LABS: Basophils % (Auto) 0 % (0-2.5); Eosinophils # (Auto) 0.1 Thou/mm3 (0.0-0.5); Eosinophils % (Auto) 2 % (0-10); Hematocrit 33.4 % (41.0-53.0); Hemoglobin 11.4 g/dL (13.5-16.0); Immature Granulocytes % (Auto) 1 % (0-0); Immature Granulocytes Auto 0.07 Thou/mm3 (0.00-0.00); Lymphocytes # (Auto) 1.5 Thou/mm3 (1.0-4.8); Lymphocytes % (Auto) 23 % (10-50); Mean Corpuscular HGB Conc 34.1 g/dl (31.0-37.0); Mean Corpuscular Hemoglobin 31.6 pg (25.0-35.0); Mean Corpuscular Volume 93 fL (80-100); Monocytes # (Auto) 0.8 Thou/mm3 (0.0-0.8); Monocytes % (Auto) 12 % (0-12); Neutrophils # (Auto) 3.9 Thou/mm3 (1.8-7.7); Neutrophils % (Auto) 61 % (37-80); Nucleated Red Blood Cell % 0 /100 WBC (0); Platelet Count 268 Thou/mm3 (140-440); RDW Standard Deviation 48.4 fL (35.1-43.9); Red Blood Count 3.61 Miln/mm3 (4.50-5.90); White Blood Count 6.4 Thou/mm3 (3.8-10.6)
[2024-05-29 06:44] LABS: Alanine Aminotransferase 72 U/L (10-49); Albumin, Serum 3.4 gm/dL (3.5-5.0); Alkaline Phosphatase 89 U/L (46-116); Anion Gap 8 (7-16); Aspartate Amino Transferase 76 U/L (0-34); BUN/Creatinine Ratio 18 Ratio (12-20); Bilirubin,Total 2.3 mg/dL (0.3-1.2); Blood Urea Nitrogen 28 mg/dL (9-23); Calcium 8.3 mg/dL (8.3-10.6); Calcium (Corrected) 8.8 mg/dL (8.5-10.1); Carbon Dioxide 22.9 mMol/L (20.0-31.0); Chloride 102 mMol/L (98-107); Creatinine (Component) 1.6 mg/dL (0.6-1.3); Estimated Creatinine Clearance 57.3 mL/min (>60); Globulin 3.5 gm/dL (2.3-3.5); Glucose 90 mg/dL (74-106); Osmolality,Calculated 271 (275-295); Phosphorous 3.3 mg/dL (2.4-5.1); Potassium 3.6 mMol/L (3.4-5.1); Sodium 133 mMol/L (136-145); Total Protein 6.9 gm/dL (5.7-8.2); eGFR 51 See Note
--- NOTE | 2024-05-29 08:36 | ESPR_ITS ---
Documentation for date of: 05/29/24 Subjective Subjective Interval history: Interval history: Mr. De is a 54-year-old male with past medical history of hypertension, CKD stage IIIb, HFpEF, methamphetamine use was admitted for acute hypoxic respiratory failure due to CHF exacerbation and hypertensive emergency. Patient was upgraded to ICU due to altered mental status due to hypotension and hypoxia. Therefore patient ended up getting intubated for airway protection and started on Levophed during ICU course. Patient was given reversal for calcium channel prasanna with calcium chloride x 3 after which patient's blood pressure showed improvement. 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 Patient's head and neck CTA was significant for descending thoracic aorta aneurysmal dilation with extensive thrombus and radiology recommended CTA chest post IV contrast follow-up. Patient is currently on Bumex 2 mg IV twice daily for IV diuresis, Zosyn for pneumonia coverage, heparin GGT due to concern of NSTEMI, Coreg, Flomax and DuoNeb treatments. Nephrology team consulted as patient has LATASHA on CKD with BUN 54, creatinine 2.7, GFR 27 per chart review patient's baseline GFR is 44. Patient seen at bedside, patient is arousable to sternal rub, unable to answer questions, not conversational, patient's mother at bedside case discussed extensively with her. Patient is currently on IV Bumex, will be given IV contrast for CTA. Discussed with patient's mother at bedside that if patient's renal function continues to decline patient might need dialysis temporarily, patient's mother is the primary decision maker and agrees with dialysis if needed. 05/26/2024: Patient seen at the bedside in telemetry. Patient was not a candidate for transfer, his condition continues to be managed medically with aggressive BP control with goal SBP <130. Patient denies chest pain, headache, abdominal pain. UO 2.2 L. Labs showed sodium 134, potassium 3.6, BUN 39, creatinine 1.7, GFR 58.3, kidney functions improving. Will continue to monitor renal function and urine output. Continues to be on high flow, oxygen requirements are decreasing, right now on 15 L 40% FiO2. 05/27/2024 patient currently seen in telemetry. Deemed not a candidate for transfer. Resting comfortably. Still on high flow oxygen. Blood pressure 139/81, heart rate 67. Hemoglobin 11.3. Sodium 134, potassium 3.6, BUN 33, creatinine 1.6, GFR 51, calcium 8.5, phosphorus 2.5, magnesium 2.1, AST 134, ALT 95, albumin 3.4 05/28/2024 patient currently seen in telemetry. Still remains on high flow oxygen. Wants to go home. Labs, medications have been reviewed. Currently on diuretics. Blood pressure seems to be stable. Patient has Sean type B aortic dissection-medical management per vascular team. Will start weaning down on oxygen. Suggested to move out of bed to chair. Not ready for discharge yet. 05/29/2024 patient currently seen in telemetry. He remains on high flow oxygen. His fianc?e is at the bedside. Continue with diuretics. Creatinine stable. Weaning down on oxygen. Out of bed to chair Review of Systems Review of Systems Narrative Review of Systems: Patient complaining of shortness of breath. Denies any chest pain. Decreased appetite. Feeling fatigue and tired Exam Vital Signs Temp Pulse Resp BP Pulse Ox O2 Del Method O2 Flow Rate 36.6 C 70 21 H 121/82 93 L High Flow Nasal Cannula 16 05/29/24 08:00 05/29/24 08:00 05/29/24 08:00 05/29/24 08:00 05/29/24 08:00 05/29/24 08:00 05/29/24 04:19 FiO2 40 05/29/24 04:19 Narrative Exam Physical Exam General: Awake and in no acute distress. Comfortable HEENT: Normocephalic, atraumatic, mucous membranes moist. Heart: Regular rate and rhythm, no murmurs. Lungs: Fine crackles at the bases Abdomen: Soft, nondistended, nontender, positive bowel sounds. ?No guarding or rebound tenderness. Neurologic: Alert and oriented x3, no gross neurological deficit, and patient able to move all 4 extremities. Extremities: No edema. Skin: No rash or ecchymoses. Objective Labs 05/30/24 05:15 05/30/24 05:15 Labs: Laboratory Results - last 24 hr 05/28/24 05/29/24 05:19 05:15 WBC 6.4 RBC 3.61 L Hgb 11.4 L Hct 33.4 L MCV 93 MCH 31.6 MCHC 34.1 RDW Std Deviation 48.4 H Plt Count 268 D Neut % (Auto) 61 Lymph % (Auto) 23 [place] % (Auto) 12 Eos % (Auto) 2 Baso % (Auto) 0 Neut # (Auto) 3.9 Lymph # (Auto) 1.5 [place] # (Auto) 0.8 Eos # (Auto) 0.1 Baso # (Auto) 0.0 Immature Gran # (Auto) 0.07 H Absolute Nucleated RBC 0.00 Immature Gran % 1 H Nucleated RBC % 0 Sodium 133 L Potassium 3.6 D Chloride 102 Carbon Dioxide 22.9 Anion Gap 8 BUN 28 H Creatinine 1.6 H Estim Creat Clear Calc 57.3 L eGFR 51 L BUN/Creatinine Ratio 18 Glucose 90 Calculated Osmolality 271 L Calcium 8.3 Corrected Calcium 8.8 Phosphorus 3.3 Magnesium 2.0 Iron 42 L TIBC 274 Iron Saturation 15 L Unsat Iron Binding 232 Total Bilirubin 2.3 H AST 76 H ALT 72 H Alkaline Phosphatase 89 Total Protein 6.9 Albumin 3.4 L Globulin 3.5 Albumin/Globulin Ratio 1.0 L ABG Interpretation ABG results: 05/20/24 05/21/24 05/22/24 17:52 04:45 00:39 ABG pH 7.36 7.42 7.53 H D ABG pCO2 33 44 D 38 ABG pO2 375 H 107 D 43 L* D ABG HCO3 19 L 29 H 31 H ABG O2 Saturation 101 H 98 80 L ABG Base Excess -6 L 3 8 H 05/22/24 05/23/24 00:56 19:04 ABG pH 7.50 H 7.55 H ABG pCO2 40 34 ABG pO2 64 L D 53 L* ABG HCO3 31 H 30 H ABG O2 Saturation 93 89 L ABG Base Excess 7 H 8 H Assessment & Plan Additional Assessment & Plan Additional Plan: Mr. De is a 54-year-old male with past medical history of hypertension, CKD stage IIIb, HFpEF, methamphetamine use was admitted for acute hypoxic respiratory failure due to CHF exacerbation and hypertensive emergency. Nephrology team consulted for LATASHA on CKD. #LATASHA on CKD stage IIIb, improving Creatinine 1.6 with a GFR 51 LFTs mildly elevated probably from passive liver congestion Patient has good urine output, produced about 2.35 L in the last 24 hours Plan: -Currently on IV Bumex 1 mg IVP twice daily -Strict I&O's -Dose medication renally -Avoid nephrotoxic medications -Monitor renal panel closely #Sean type B dissecting aortic aneurysm--medical management #Acute hypoxic encephalopathy-resolved #Methamphetamine abuse disorder #Marijuana abuse disorder #Shock, resolved #Hypertension #Acute exacerbation of HFpEF-compensated #Acute hypoxic respiratory failure 2/2 HFpEF exacerbation and Aspiration PNA- compensated #Aspiration pneumonia #Cystic lung 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
[2024-05-29] MEDS: BUMETANIDE INJ 0.25 MG/ML VIAL 4 ML 1 MG IVP ×2 (09:21→20:47)
[2024-05-29] MEDS: carVEDILOL 12.5 MG TABLET 25 MG PO ×2 (09:21→20:47)
[2024-05-29] MEDS: POTASSIUM CHLORIDE 20 mEq TABCR 40 MEQ PO (09:21)
[2024-05-29] MEDS: amLODIPine BESYLATE 5 MG TABLET 10 MG PO (09:22)
[2024-05-29] MEDS: NIFEdipine XL 30 MG TABCR PO (09:22)
[2024-05-29] MEDS: ASPIRIN EC 81 MG TABEC PO (09:22)
[2024-05-29] MEDS: SPIRONOLACTONE 25 MG TABLET PO (09:22)
[2024-05-29] MEDS: CLOPIDOGREL BISULFATE 75 MG TABLET PO (09:22)
[2024-05-29] MEDS: POTASSIUM CHLORIDE 20 mEq TABCR PO (12:11)
--- NOTE | 2024-05-29 14:01 | ESPR_ITS ---
<Statement entered by Ray Barajas MD - 05/29/24 14:08> Patient was examined bedside this morning, will switch him to oxy mask and will do physical therapy. Blood pressure is maintained in the 120s systolic we will continue the current regimen for now. He was later said that he would not go home on [place]. I discussed with and supervised my co-resident involved in the care of this patient. I agree with the assessment and plan as documented above. Ray Barajas,PGY-3 Disclaimer: Despite multiple revisions, due to the dictation software being used, the document below may not be free of grammatical errors including phonetic/typographic errors. However, this does not deter from our commitment to providing health care in the patient's best interest in mind. Documentation for date of: 05/29/24 Subjective Subjective Interval history: Patient is a 54-year-old male with a past medical history of hypertension, chronic kidney disease stage III, history of congestive heart failure HFpEF- diastolic dysfunction stage I 50 to 55% (03/15/2023), and history of poly- substance use disorder (meth/THC) who was initially admitted for acute hypoxic respiratory failure and CHF exacerbation, then found to have an aortic dissection, type B. Patient's blood pressure continues to improve and remains within 120-130 systolic blood pressure. Patient denied chest pain or shortness of breath. Working towards being weaned off oxygen. Patient is hopeful of being able to return home in near future. Exam Vital Signs Temp Pulse Resp BP Pulse Ox O2 Del Method O2 Flow Rate 97.9 F 61 22 H 120/80 94 L High Flow Nasal Cannula 14 05/29/24 12:05/29/24 12:05/29/24 12:05/29/24 12:05/29/24 12:05/29/24 12:00 05/29/24 10:58 FiO2 40 05/29/24 10:58 Narrative Exam General Appearance: Alert & Oriented X3, well-nourished male who is lying in bed in no acute distress HEENT: Skull symmetrical and atraumatic. Conjunctivae pink and moist. Pupils equal, round, reactive to light and accommodation (PERRL). External ear without lesion or discharge. Straight, nares patient, mucosa pink, no discharge. Cardio: Normal Rate and Rhythm with S1 and S2 heart sounds. No murmurs or extra heart sounds auscultated. No bruits on carotid auscultation. No peripheral edema or cyanosis. Lungs: Symmetric with good expansion. Chest and back non-tender. Breath sounds vesicular without crackles, wheezing or rhonchi Abdomen: Non-tender, Non-distended, Normal Reactive Bowel Sounds Neuro: Alert, cooperative, oriented to person, place, and time. Speech clear. CN grossly intact. Upper motor strength 5/5 and Lower motor strength 5/5. Sensation intact. Objective Labs 05/29/24 05:15 05/29/24 05:15 Labs: Laboratory Results - last 24 hr 05/29/24 05:15 WBC 6.4 RBC 3.61 L Hgb 11.4 L Hct 33.4 L MCV 93 MCH 31.6 MCHC 34.1 RDW Std Deviation 48.4 H Plt Count 268 D Neut % (Auto) 61 Lymph % (Auto) 23 [place] % (Auto) 12 Eos % (Auto) 2 Baso % (Auto) 0 Neut # (Auto) 3.9 Lymph # (Auto) 1.5 [place] # (Auto) 0.8 Eos # (Auto) 0.1 Baso # (Auto) 0.0 Immature Gran # (Auto) 0.07 H Absolute Nucleated RBC 0.00 Immature Gran % 1 H Nucleated RBC % 0 Sodium 133 L Potassium 3.6 D Chloride 102 Carbon Dioxide 22.9 Anion Gap 8 BUN 28 H Creatinine 1.6 H Estim Creat Clear Calc 57.3 L eGFR 51 L BUN/Creatinine Ratio 18 Glucose 90 Calculated Osmolality 271 L Calcium 8.3 Corrected Calcium 8.8 Phosphorus 3.3 Magnesium 2.0 Total Bilirubin 2.3 H AST 76 H ALT 72 H Alkaline Phosphatase 89 Total Protein 6.9 Albumin 3.4 L Globulin 3.5 Albumin/Globulin Ratio 1.0 L ABG Interpretation ABG results: 05/20/24 05/21/24 05/22/24 17:52 04:45 00:39 ABG pH 7.36 7.42 7.53 H D ABG pCO2 33 44 D 38 ABG pO2 375 H 107 D 43 L* D ABG HCO3 19 L 29 H 31 H ABG O2 Saturation 101 H 98 80 L ABG Base Excess -6 L 3 8 H 05/22/24 05/23/24 00:56 19:04 ABG pH 7.50 H 7.55 H ABG pCO2 40 34 ABG pO2 64 L D 53 L* ABG HCO3 31 H 30 H ABG O2 Saturation 93 89 L ABG Base Excess 7 H 8 H Quality Measures Quality Measures VTE prophylaxis (Holding heparin ) Assessment & Plan Assessment Current Active Medications: Generic Name Dose Route Start Last Admin Trade Name Freq PRN Reason Stop Dose Admin Acetaminophen 650 mg 05/20/24 01:03 05/24/24 23:11 Acetaminophen 325 Mg Tablet PO 06/19/24 01:02 650 mg Q6H PRN Administration Pain 1-3 or Fever >100.3 Hydrocodone Bitart/Acetaminophen 1 tab 05/25/24 07:22 05/27/24 05:25 Hydrocodone/Apap 5/325 Tablet PO 05/30/24 07:21 1 tab Q4HR PRN Administration PAIN SCALE 4-6 (Moderate Amlodipine Besylate 10 mg 05/28/24 09:00 05/29/24 09:22 Amlodipine Besylate 5 Mg Tablet PO 06/27/24 08:59 10 mg QDAY MICAH Administration Aspirin 81 mg 05/26/24 09:00 05/29/24 09:22 Aspirin Ec 81 Mg Tabec PO 06/25/24 08:59 81 mg QDAY MICAH Administration Bumetanide 1 mg 05/24/24 13:15 05/29/24 09:21 Bumetanide Inj 0.25 Mg/Ml Vial 4 Ml IVP 06/23/24 13:14 1 mg BID MICAH Administration Carvedilol 25 mg 05/27/24 19:00 05/29/24 09:21 Carvedilol 12.5 Mg Tablet PO 06/26/24 18:59 25 mg BIDWM MICAH Administration Clopidogrel Bisulfate 75 mg 05/26/24 09:00 05/29/24 09:22 Clopidogrel Bisulfate 75 Mg Tablet PO 06/16/24 08:59 75 mg QDAY MICAH Administration Ferrous Sulfate 325 mg 05/28/24 13:45 05/28/24 14:35 Ferrous Sulf 325 Mg Tablet PO 06/27/24 13:44 325 mg QOD MICAH Administration Labetalol HCl 10 mg 05/25/24 10:20 05/29/24 04:11 Labetalol Inj 5 Mg/Ml Vial 20 Ml IVP 06/24/24 10:12 10 mg Q4HR PRN Administration SBP > 120 Morphine Sulfate 1 mg 05/25/24 07:22 Morphine Sulf Inj 10 Mg/Ml Vial IVP 05/30/24 07:21 Q4HR PRN PAIN SCALE 7-10 (Severe Nifedipine 30 mg 05/26/24 09:00 05/29/24 09:22 Nifedipine Xl 30 Mg Tabcr PO 06/25/24 08:59 30 mg QDAY MICAH Administration Ondansetron HCl 4 mg 05/20/24 01:03 Ondansetron Inj 2 Mg/Ml Inj 2 Ml IV 06/19/24 01:02 Q6H PRN NAUSEA OR VOMITING Protocol Pantoprazole Sodium 40 mg 05/20/24 21:00 05/28/24 20:04 Pantoprazole Inj 40 Mg Vial IVP 06/19/24 20:59 40 mg HS MICAH Administration Pharmacy Consult 1 each 05/21/24 08:42 Pharmacy Renal Dose Adjustment 1 Ea XX 06/20/24 08:41 PRN PRN CONSULT Polyethylene Glycol 17 gm 05/25/24 14:45 05/29/24 09:20 Polyethylene Glycol 17 Gm Packet PO 06/24/24 14:44 Not Given QDAY MICAH Sennosides 1 tab 05/23/24 07:55 05/26/24 20:31 Senna Tablet PO 06/19/24 08:59 1 tab QDAY PRN Administration constipation Protocol Sertraline HCl 25 mg 05/26/24 21:00 05/28/24 20:05 Sertraline Hcl 25 Mg Tablet PO 06/25/24 20:59 25 mg HS MICAH Administration Spironolactone 25 mg 05/29/24 09:00 05/29/24 09:22 Spironolactone 25 Mg Tablet PO 06/28/24 08:59 25 mg DAILY MICAH Administration Plan This patient is a 54-year-old male with a past medical history of hypertension, chronic kidney disease stage III, history of congestive heart failure HFpEF- diastolic dysfunction stage I 50 to 55% (03/15/2023), and history of poly- substance use disorder (meth/THC) who was initially admitted for acute hypoxic respiratory failure and CHF exacerbation, then upgraded to ICU and downgraded on 05/22/2024-->managing aortic dissection type B. #Aortic Dissection, Type B Sean #Acute hypoxic respiratory Failure, improving #Pneumonia, resolved. #Aortic thrombus, Resolved. #Obstructive Shock, Resolved. #Sepsis, secondary to pneumonia with end organ failure, Resolved. Etiology: Acute hypoxic respiratory failure is likely multi-factorial but CHF exacerbation likely contributing to hypoxemia on addmission given elevated BNP and chest xray on admission showing pulmonary vascular congestion. Sepsis secondary to pneumonia likely contributing to increased work of breathing given update Cxr showing bilateral pneumonia. Consider aspiration pneumonia and increasing Zosyn dosage. Sepsis noted overnight, with a Fever of 101, RR 23, with source of infection as noted in Cxr showing pneumonia. Although Well's criteria on admission was 0, concern for PE increased given possible thrombus noted on CTA neck. Current Well's criteria 3. On heparin drip for thrombus. Thrombus could also be causing respiratory failure leading to possible obstructive shock previous to ICU admission. 05/24/2024-CTA obtained showing aortic dissection, [place] type B. Patients SBP today between 120-140. Currently working on transferring patient[facility] as [facility] surgery stated patient is hemodynamically stable. 05/24/2024: Patient continued to have elevated blood pressure Labetolol given X3 throught out the day and hydralazine x1 at 6 PM. Coreg increased to 25 mg PO BIDWM 05/26/2024: Patient was given labetalol IV 60 mg overnight for blood pressure management. Discontinued Coreg today this morning. 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 Started patient on Coreg 25 mg BID, continue Nifedipine 30 mg Qday, spironolactone 25 mg once a day. Start amlodipine 10 mg Qday tomorrow 05/28/2024: Amlodipine added. Systolic Blood pressure continues to be near the 120s. Consider going up on Nifedipine tomorrow. 05/29/2024: regamin of Coreg, nifedipine, spironolactone, and amlodipine will remain. Patient on [place] spo2 94% on 5 L/min Plan ? restart Coreg 25 mg BID, nifedipine XL 30 mg once daily, added spironolactone 25 mg once daily, and amlodpine -Labetalol IV 10 mg IV Q4HR PRN, for SBP >130 -Goal Systolic blood pressure at or near <120 with MAP >70 -If blood pressure remains high and HR <60, consult ICU-->consider nitroprusside -Holding Heparin, given possible hemorrhage into Psoas muscle -Type and screen placed. -Zosyn 3.375 g (05/22/2024-05/23/2024)-->Augmentin 500 BID (05/23--05/26) -blood culture-NO growth after 48 Hours. -Continue N.C. #CHF Exacerbation, imroving #CHF, HFpEF systolic dysfunction with right heart failure EF 50% #Pulmonary HTN #Cor Pulmonale #Hypertension #NSTEMI I vs II (?) #Hypertensive Emergency, Resolved #Cardiogenic Shock, Resolved. Etiology: Patient has an extensive history of CHF, systolic dysfunciton with an EF of 50% and elevated pulmonary artery pressure with atrial dilation. In the setting of methamphetamine use, this is likely the cause as both are highly associated with atrial dilation and contributing to CHF-->consider Cor Pulmonale as left ventricle appears normal size and EKG noted right ventricle hypertrophy. On admission, patient likely suffered cardiogenic show from possible vasopasm from meth us and multiple anti-hypertensive medication. Now presenting with troponemia with no ST elevation and likely NSTEMI type II but type I can not be rule out. Diagnostics: Echo: Systolic Dysfunciton, massively dilated right atrium, EF 50%, RVSP 60 mm Hg (moderate severe pulmonary hypertension) Troponin (05/22/2024) 2.926 and 2.721 EKG (05/21/2024): Sinus Tachycardia Current output:Urine output: 2200 mL with negative balance of 1400 mL. Weight: 93 kg. Patient needs standing weight every day for accurate measurements Plan -Continue diuresis with Bumex 1 mg IVP BID -Daily weight checks in standing position -Fluid Restricted -Diet, Na restricted -Keep >4 and Mg >2 -Cardiology Consulted, Dr. Pham, appreciate recommendations -Consider bladder US if need be overnight #LATASHA on CKD III-->CKD III, improving #hypokalemia Etiology: Patient has a past medical history of CHF with a BUN/Cr ratio of 19, thus maybe pre-renal given shock and CHF exacerbation, but worsening CKD likely given intrinsic failure. Initially patient was GFR of 31, now GFR worsening at 27, thus progressing towards end renal failure thus dialysis maybe a possibility. DDx: CKD secondary to Intrinsci renal failure from Meth use as it has been to lead to chronic kidney disease vs post renal obstruction given BPH Diagnostics: 05/29: BUN 28, creatinine 1.6, GFR 51 Plan: -Continue to replete electrolytes in setting of Bumex -Continue Bumex 1 mg IVP BID -Avoid nephrotoxins -renally dose medication -follow BUN & Cr -renal diet # Electrolyte disturbance # Hypophosphatemia Plan ? Continue to replete potassium and phosphate as need # Depression ? Patient was feeling sad and depressive. Plan: ? Started sertraline 25 mg at bedtime #Cirrhosis secondary to Alcohol Use #Hyperbilirubinemia #Mild Transamitis Etiolgoy: Given shock, during ICU admission, likely secondary to hepatic ischemia and complicated by CHF exacerbation causing cardio-hepatic damage. History of Alcohol use disorder likely contributing to cirrhosis. Less likely secondary to infectious cause as hepatitis is negative vs autoimmune condition. LEONARDO and GGT pending. Plan -GGT-->129 (H) -monitor AST/ALT -monitor total bili #Normocytic Anemia #Acute blood loss Likely secondary in the setting of acute blood loss secondary to aortic dissection & hemorrhage at the psoas Diagnostics: Iron 42 L, TIBC 274, Iron Saturation 15 L, Unsat Iron Binding 232 Plan -Iron tablets #BPH Plan -no acute intervention -holding Tamulosin #Acute Metabolic Encepholopathy, Resolved. #Bilateral embolic stroke #Hypoxemia vs Sepsis vs stroke Etiology: Likely secondary to hypoxemia given CHF exacerbation on admission requiring intubation prior to being on floors and ischemic stroke as noted on MRI brain DDx: Poly-substance Use disorder secondary to methamphetamine as withdraw can present as hyperisonia or insominia vs Sepsis, improved -from CAP/Aspiration Diagnostics: -Head/Neck CTA (05/22/2024): Partially visualized descending thoracic aortic aneurysmal dilation w/ extensive thrombus, CTA recommend . NO significan neck arterial stenoses. No cerebral large vessel occlusions or thrombus. -MRI Brain (05/22/2024): Multiple tiny embolic type infartcs left temporal lobe bilateral parietal lobes as above -Lipid Panetl Triglycerides 71, Cholesterol 92, LDL 49, HDL 29, -TSH 2.39 -Utox Positive THC and Meth -Chest x-ray: Mild Bibasilar Pneumonia -CT Head: negative for hemorrhage or mass effect. -LEONARDO-NEGATIVE ASCVD 3.6% 10 year cardiovascular risk, consider moderate to high intensity, currently no Atorvastatin to be added Plan: ? Continuing aspirin, Plavix and statin therapy per neurology recommendation -Heparin Drip, stopped given risk of bleeding into the Psoas muscle, possible hemorrhage -Hypercoaguable panel by Dr. Olivares -Avoid Hyperthermia and keep Euglycemic -Physical Therapy:Home with Oxygen & Home Health -Neurology Consulted, appreciate recommendations, neurology Health Maintenance: FEN: Diet Cardiac DVT: Holding Heparin, secondary to hemorrhage into psoas muscle; Compression Device Code: Full Code Disp: Pt is currently admitted to floors for further management of acute hypoxic respiratory failure due to right heart failure, aortic dissection type B [place] and ischemic embolic stroke. - The patient's plan was discussed with attending Dr. Matute and senior residents Dr. Karl Barros MD PGY1 Internal Medicine Attending Provider Attestation/Addendum I, Luana Matute, , attest that I was physically present for the carbajal portions of the service and evaluated the patient with the resident and I reviewed and discussed the case with the resident and agree with the resident's findings and plans of care as documented above Patient seen and eval this a.m. Patient is able to speak in full sentences and states that he is feeling much better. Patient states that he will change his lifestyle upon being discharged from the hospital. He is currently on high flow nasal cannula with a flow of 14 L/min and FiO2 of 40%. Since patient is on minimal support, will switch to a nasal cannula and encourage patient to work with physical therapy. Mother was also at bedside. Blood pressure remained stable we will continue current management and anticipate discharge in the next 48 hours or so if patient condition continues to improve.
[2024-05-29] MEDS: PANTOPRAZOLE INJ 40 MG VIAL IVP (20:47)
[2024-05-29] MEDS: SERTRALINE HCL 25 MG TABLET PO (20:47)
[2024-05-30] VITALS (13 sets, daily range): BP systolic 118–147; BP diastolic 72–87; PULSE 30–109; RESP 13–23; TEMP 36.1–36.7; O2SAT 91–98; BMI 26.6
--- NOTE | 2024-05-30 03:46 | PC.NURSE ---
PT b/p currently 135/83, pulse ranging from 56-61, notified Dr. Igor LARRY of B/P, order to hold Labetolol for now due to Pulse. No other orders recieved.
[2024-05-30 06:41] LABS: Basophils % (Auto) 0 % (0-2.5); Eosinophils # (Auto) 0.1 Thou/mm3 (0.0-0.5); Eosinophils % (Auto) 1 % (0-10); Hematocrit 35.3 % (41.0-53.0); Hemoglobin 11.8 g/dL (13.5-16.0); Immature Granulocytes % (Auto) 1 % (0-0); Immature Granulocytes Auto 0.08 Thou/mm3 (0.00-0.00); Lymphocytes # (Auto) 1.8 Thou/mm3 (1.0-4.8); Lymphocytes % (Auto) 25 % (10-50); Mean Corpuscular HGB Conc 33.4 g/dl (31.0-37.0); Mean Corpuscular Hemoglobin 30.9 pg (25.0-35.0); Mean Corpuscular Volume 92 fL (80-100); Monocytes # (Auto) 0.8 Thou/mm3 (0.0-0.8); Monocytes % (Auto) 11 % (0-12); Neutrophils # (Auto) 4.4 Thou/mm3 (1.8-7.7); Neutrophils % (Auto) 61 % (37-80); Nucleated Red Blood Cell % 0 /100 WBC (0); Platelet Count 337 Thou/mm3 (140-440); RDW Standard Deviation 48.6 fL (35.1-43.9); Red Blood Count 3.82 Miln/mm3 (4.50-5.90); White Blood Count 7.2 Thou/mm3 (3.8-10.6)
[2024-05-30 06:42] LABS: Alanine Aminotransferase 63 U/L (10-49); Albumin, Serum 3.6 gm/dL (3.5-5.0); Albumin/Globulin Ratio 1.1 (1.2-2.2); Alkaline Phosphatase 96 U/L (46-116); Anion Gap 9 (7-16); Aspartate Amino Transferase 60 U/L (0-34); BUN/Creatinine Ratio 16 Ratio (12-20); Bilirubin,Total 2.4 mg/dL (0.3-1.2); Blood Urea Nitrogen 27 mg/dL (9-23); Calcium 8.7 mg/dL (8.3-10.6); Carbon Dioxide 23.3 mMol/L (20.0-31.0); Chloride 103 mMol/L (98-107); Creatinine (Component) 1.7 mg/dL (0.6-1.3); Estimated Creatinine Clearance 53.9 mL/min (>60); Globulin 3.4 gm/dL (2.3-3.5); Glucose 110 mg/dL (74-106); Osmolality,Calculated 276 (275-295); Phosphorous 3.6 mg/dL (2.4-5.1); Potassium 3.9 mMol/L (3.4-5.1); Sodium 135 mMol/L (136-145); eGFR 47 See Note
[2024-05-30] MEDS: ASPIRIN EC 81 MG TABEC PO (08:11)
[2024-05-30] MEDS: carVEDILOL 12.5 MG TABLET 25 MG PO ×2 (08:11→16:37)
[2024-05-30] MEDS: SPIRONOLACTONE 25 MG TABLET PO (08:12)
[2024-05-30] MEDS: FERROUS SULF 325 MG TABLET PO (08:12)
[2024-05-30] MEDS: CLOPIDOGREL BISULFATE 75 MG TABLET PO (08:12)
[2024-05-30] MEDS: amLODIPine BESYLATE 5 MG TABLET 10 MG PO (08:12)
[2024-05-30] MEDS: BUMETANIDE INJ 0.25 MG/ML VIAL 4 ML 1 MG IVP ×2 (08:12→20:53)
[2024-05-30] MEDS: NIFEdipine XL 30 MG TABCR PO ×2 (08:12→13:27)
[2024-05-30] MEDS: POTASSIUM CHLORIDE 20 mEq TABCR PO (09:18)
--- NOTE | 2024-05-30 12:01 | PD.NEPHPROG ---
Documentation for date of: 05/30/24 Subjective Subjective Interval history: Interval history: Mr. De is a 54-year-old male with past medical history of hypertension, CKD stage IIIb, HFpEF, methamphetamine use was admitted for acute hypoxic respiratory failure due to CHF exacerbation and hypertensive emergency. Patient was upgraded to ICU due to altered mental status due to hypotension and hypoxia. Therefore patient ended up getting intubated for airway protection and started on Levophed during ICU course. Patient was given reversal for calcium channel prasanna with calcium chloride x 3 after which patient's blood pressure showed improvement. 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 pier hand helper today 05/22/24 patient had a stroke alert called for change in mental status GCS was 12, teleneuro assessed the patient and recommended further investigations. Patient's head and neck CTA was significant for descending thoracic aorta aneurysmal dilation with extensive thrombus and radiology recommended CTA chest post IV contrast follow-up. Patient is currently on Bumex 2 mg IV twice daily for IV diuresis, Zosyn for pneumonia coverage, heparin GGT due to concern of NSTEMI, Coreg, Flomax and DuoNeb treatments. Nephrology team consulted as patient has LATASHA on CKD with BUN 54, creatinine 2.7, GFR 27 per chart review patient's baseline GFR is 44. Patient seen at bedside, patient is arousable to sternal rub, unable to answer questions, not conversational, patient's mother at bedside case discussed extensively with her. Patient is currently on IV Bumex, will be given IV contrast for CTA. Discussed with patient's mother at bedside that if patient's renal function continues to decline patient might need dialysis temporarily, patient's mother is the primary decision maker and agrees with dialysis if needed. 05/26/2024: Patient seen at the bedside in telemetry. Patient was not a candidate for transfer, his condition continues to be managed medically with aggressive BP control with goal SBP <130. Patient denies chest pain, headache, abdominal pain. UO 2.2 L. Labs showed sodium 134, potassium 3.6, BUN 39, creatinine 1.7, GFR 58.3, kidney functions improving. Will continue to monitor renal function and urine output. Continues to be on high flow, oxygen requirements are decreasing, right now on 15 L 40% FiO2. 05/27/2024 patient currently seen in telemetry. Deemed not a candidate for transfer. Resting comfortably. Still on high flow oxygen. Blood pressure 139/81, heart rate 67. Hemoglobin 11.3. Sodium 134, potassium 3.6, BUN 33, creatinine 1.6, GFR 51, calcium 8.5, phosphorus 2.5, magnesium 2.1, AST 134, ALT 95, albumin 3.4 05/28/2024 patient currently seen in telemetry. Still remains on high flow oxygen. Wants to go home. Labs, medications have been reviewed. Currently on diuretics. Blood pressure seems to be stable. Patient has Sean type B aortic dissection-medical management per vascular team. Will start weaning down on oxygen. Suggested to move out of bed to chair. Not ready for discharge yet. 05/30/2024 patient currently seen in telemetry. Patient currently seen on 4 L nasal cannula. His blood pressure is on the higher side. Waiting for the blood pressure he can be discharged. His fianc?e is at the bedside. Continue with diuretics. Creatinine stable. Out of bed to chair. Review of Systems Review of Systems Narrative Review of Systems: Patient complaining of shortness of breath-slightly better than yesterday. Denies any chest pain. Decreased appetite. Feeling fatigue and tired Exam Vital Signs Temp Pulse Resp BP Pulse Ox O2 Del Method O2 Flow Rate 36.6 C 62 16 143/81 H 94 L Nasal Cannula 4 05/30/24 04:00 05/30/24 11:22 05/30/24 11:22 05/30/24 08:12 05/30/24 11:22 05/30/24 04:00 05/30/24 11:22 FiO2 40 05/30/24 00:00 Narrative Exam Physical Exam General: Awake and in no acute distress. Comfortable HEENT: Normocephalic, atraumatic, mucous membranes moist. Heart: Regular rate and rhythm, no murmurs. Lungs: Fine crackles at the bases Abdomen: Soft, nondistended, nontender, positive bowel sounds. ?No guarding or rebound tenderness. Neurologic: Alert and oriented x3, no gross neurological deficit, and patient able to move all 4 extremities. Extremities: No edema. Skin: No rash or ecchymoses. Objective Labs 05/30/24 05:15 05/30/24 05:15 Labs: Laboratory Results - last 24 hr 05/30/24 05:15 WBC 7.2 RBC 3.82 L Hgb 11.8 L Hct 35.3 L MCV 92 MCH 30.9 MCHC 33.4 RDW Std Deviation 48.6 H Plt Count 337 D Neut % (Auto) 61 Lymph % (Auto) 25 [place] % (Auto) 11 Eos % (Auto) 1 Baso % (Auto) 0 Neut # (Auto) 4.4 Lymph # (Auto) 1.8 [place] # (Auto) 0.8 Eos # (Auto) 0.1 Baso # (Auto) 0.0 Immature Gran # (Auto) 0.08 H Absolute Nucleated RBC 0.00 Immature Gran % 1 H Nucleated RBC % 0 Sodium 135 L Potassium 3.9 Chloride 103 Carbon Dioxide 23.3 Anion Gap 9 BUN 27 H Creatinine 1.7 H Estim Creat Clear Calc 53.9 L eGFR 47 L BUN/Creatinine Ratio 16 Glucose 110 H Calculated Osmolality 276 Calcium 8.7 Corrected Calcium 9.0 Phosphorus 3.6 Magnesium 2.0 Total Bilirubin 2.4 H AST 60 H ALT 63 H Alkaline Phosphatase 96 Total Protein 7.0 Albumin 3.6 Globulin 3.4 Albumin/Globulin Ratio 1.1 L ABG Interpretation ABG results: 05/20/24 05/21/24 05/22/24 17:52 04:45 00:39 ABG pH 7.36 7.42 7.53 H D ABG pCO2 33 44 D 38 ABG pO2 375 H 107 D 43 L* D ABG HCO3 19 L 29 H 31 H ABG O2 Saturation 101 H 98 80 L ABG Base Excess -6 L 3 8 H 05/22/24 05/23/24 00:56 19:04 ABG pH 7.50 H 7.55 H ABG pCO2 40 34 ABG pO2 64 L D 53 L* ABG HCO3 31 H 30 H ABG O2 Saturation 93 89 L ABG Base Excess 7 H 8 H Assessment & Plan Additional Assessment & Plan Additional Plan: Mr. De is a 54-year-old male with past medical history of hypertension, CKD stage IIIb, HFpEF, methamphetamine use was admitted for acute hypoxic respiratory failure due to CHF exacerbation and hypertensive emergency. Nephrology team consulted for LATASHA on CKD. #LATASHA on CKD stage IIIb, improving Creatinine 1.67 with a GFR 47 LFTs mildly elevated probably from passive liver congestion Patient has good urine output, produced about 2.35 L in the last 24 hours Plan: -Currently on IV Bumex 1 mg IVP twice daily -Strict I&O's -Dose medication renally -Avoid nephrotoxic medications -Monitor renal panel closely #Sean type B dissecting aortic aneurysm--medical management #Acute hypoxic encephalopathy-resolved #Methamphetamine abuse disorder #Marijuana abuse disorder #Shock, resolved #Hypertension #Acute exacerbation of HFpEF-compensated #Acute hypoxic respiratory failure 2/2 HFpEF exacerbation and Aspiration PNA-compensated #Aspiration pneumonia #Cystic lung 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 Bumex. Renal hutchinson stable for discharge.
--- NOTE | 2024-05-30 13:00 | PC.NURSE ---
Addendum entered by Poncho Taylor RN 05/30/24 13:23: New orders received and nifidepine increased. Original Note: Notified MD regarding patients BP of 147/87 with a pulse of 60 BPM. MD said to hold Labetolol D/T HR and that current medications will be looked at and possibly increased.
--- NOTE | 2024-05-30 13:35 | ESPR_ITS ---
<Statement entered by Ray Barajas MD - 05/30/24 14:42> Patient is examined bedside this morning, he was comfortably sitting in bed with 4 L of oxygen via nasal cannula. Pending PT recs . His blood pressure overnight increased with systolic 170s to 150s. For [place] he had home food. Will monitor his food intake. Increase the nifedipine to 60 mg. Will continue to monitor anticipate discharge in next 24 to 48 hours if blood pressure is stable. I discussed with and supervised my co-resident involved in the care of this patient. I agree with the assessment and plan as documented above. Ray Barajas,PGY-3 Disclaimer: Despite multiple revisions, due to the dictation software being used, the document below may not be free of grammatical errors including phonetic/typographic errors. However, this does not deter from our commitment to providing health care in the patient's best interest in mind. Documentation for date of: 05/30/24 Subjective Subjective Interval history: Patient is a 54-year-old male with a past medical history of hypertension, chronic kidney disease stage III, history of congestive heart failure HFpEF- diastolic dysfunction stage I 50 to 55% (03/15/2023), and history of poly- substance use disorder (meth/THC) who was initially admitted for acute hypoxic respiratory failure and CHF exacerbation, then found to have an aortic dissection, type B. [place] systolic blood pressure has been within 130-147, thus patient's anti- hypertensive medication of Nifedipine increased to 60 mg Qday. Patient denied chest pain or dyspnea. Patient continues to have improved oxygen saturation on N.[place]. currently on 3 liters. Continue to monitor blood pressure. Field Services Director consulted and ask to go over food restrictions with salt as patient's family was brining outside food. Exam Vital Signs Temp Pulse Resp BP Pulse Ox O2 Del Method O2 Flow Rate 97.5 F 60 19 147/87 H 98 Nasal Cannula 4 05/30/24 12:00 05/30/24 13:27 05/30/24 12:00 05/30/24 13:27 05/30/24 12:00 05/30/24 04:00 05/30/24 11:22 FiO2 40 05/30/24 00:00 Narrative Exam General Appearance: Alert & Oriented X3, well-nourished male who is lying in bed in no acute distress HEENT: Skull symmetrical and atraumatic. Conjunctivae pink and moist. Pupils equal, round, reactive to light and accommodation (PERRL). External ear without lesion or discharge. Straight, nares patient, mucosa pink, no discharge. Cardio: Normal Rate and Rhythm with S1 and S2 heart sounds. No murmurs or extra heart sounds auscultated. No bruits on carotid auscultation. No peripheral edema or cyanosis. Lungs: Symmetric with good expansion. Chest and back non-tender. Breath sounds vesicular without crackles, wheezing or rhonchi Abdomen: Non-tender, Non-distended, Normal Reactive Bowel Sounds Neuro: Alert, cooperative, oriented to person, place, and time. Speech clear. CN grossly intact. Upper motor strength 5/5 and Lower motor strength 5/5. Sensation intact. Objective Labs 05/31/24 04:55 05/31/24 04:55 Labs: Laboratory Results - last 24 hr 05/30/24 05:15 WBC 7.2 RBC 3.82 L Hgb 11.8 L Hct 35.3 L MCV 92 MCH 30.9 MCHC 33.4 RDW Std Deviation 48.6 H Plt Count 337 D Neut % (Auto) 61 Lymph % (Auto) 25 [place] % (Auto) 11 Eos % (Auto) 1 Baso % (Auto) 0 Neut # (Auto) 4.4 Lymph # (Auto) 1.8 [place] # (Auto) 0.8 Eos # (Auto) 0.1 Baso # (Auto) 0.0 Immature Gran # (Auto) 0.08 H Absolute Nucleated RBC 0.00 Immature Gran % 1 H Nucleated RBC % 0 Sodium 135 L Potassium 3.9 Chloride 103 Carbon Dioxide 23.3 Anion Gap 9 BUN 27 H Creatinine 1.7 H Estim Creat Clear Calc 53.9 L eGFR 47 L BUN/Creatinine Ratio 16 Glucose 110 H Calculated Osmolality 276 Calcium 8.7 Corrected Calcium 9.0 Phosphorus 3.6 Magnesium 2.0 Total Bilirubin 2.4 H AST 60 H ALT 63 H Alkaline Phosphatase 96 Total Protein 7.0 Albumin 3.6 Globulin 3.4 Albumin/Globulin Ratio 1.1 L ABG Interpretation ABG results: 05/20/24 05/21/24 05/22/24 17:52 04:45 00:39 ABG pH 7.36 7.42 7.53 H D ABG pCO2 33 44 D 38 ABG pO2 375 H 107 D 43 L* D ABG HCO3 19 L 29 H 31 H ABG O2 Saturation 101 H 98 80 L ABG Base Excess -6 L 3 8 H 05/22/24 05/23/24 00:56 19:04 ABG pH 7.50 H 7.55 H ABG pCO2 40 34 ABG pO2 64 L D 53 L* ABG HCO3 31 H 30 H ABG O2 Saturation 93 89 L ABG Base Excess 7 H 8 H Quality Measures Quality Measures VTE prophylaxis (Holding heparin ) Assessment & Plan Assessment Current Active Medications: Generic Name Dose Route Start Last Admin Trade Name Freq PRN Reason Stop Dose Admin Acetaminophen 650 mg 05/20/24 01:03 05/24/24 23:11 Acetaminophen 325 Mg Tablet PO 06/19/24 01:02 650 mg Q6H PRN Administration Pain 1-3 or Fever >100.3 Amlodipine Besylate 10 mg 05/28/24 09:00 05/30/24 08:12 Amlodipine Besylate 5 Mg Tablet PO 06/27/24 08:59 10 mg QDAY MICAH Administration Aspirin 81 mg 05/26/24 09:00 05/30/24 08:11 Aspirin Ec 81 Mg Tabec PO 06/25/24 08:59 81 mg QDAY MICAH Administration Bumetanide 1 mg 05/24/24 13:15 05/30/24 08:12 Bumetanide Inj 0.25 Mg/Ml Vial 4 Ml IVP 06/23/24 13:14 1 mg BID MICAH Administration Carvedilol 25 mg 05/27/24 19:00 05/30/24 08:11 Carvedilol 12.5 Mg Tablet PO 06/26/24 18:59 25 mg BIDWM MICAH Administration Clopidogrel Bisulfate 75 mg 05/26/24 09:00 05/30/24 08:12 Clopidogrel Bisulfate 75 Mg Tablet PO 06/16/24 08:59 75 mg QDAY MICAH Administration Ferrous Sulfate 325 mg 05/28/24 13:45 05/30/24 08:12 Ferrous Sulf 325 Mg Tablet PO 06/27/24 13:44 325 mg QOD MICAH Administration Nifedipine 60 mg 05/31/24 09:00 Nifedipine Xl 30 Mg Tabcr PO 06/30/24 08:59 QDAY MICAH Ondansetron HCl 4 mg 05/20/24 01:03 Ondansetron Inj 2 Mg/Ml Inj 2 Ml IV 06/19/24 01:02 Q6H PRN NAUSEA OR VOMITING Protocol Pantoprazole Sodium 40 mg 05/20/24 21:00 05/29/24 20:47 Pantoprazole Inj 40 Mg Vial IVP 06/19/24 20:59 40 mg HS MICAH Administration Pharmacy Consult 1 each 05/21/24 08:42 Pharmacy Renal Dose Adjustment 1 Ea XX 06/20/24 08:41 PRN PRN CONSULT Polyethylene Glycol 17 gm 05/25/24 14:45 05/30/24 08:19 Polyethylene Glycol 17 Gm Packet PO 06/24/24 14:44 Not Given QDAY MICAH Sennosides 1 tab 05/23/24 07:55 05/26/24 20:31 Senna Tablet PO 06/19/24 08:59 1 tab QDAY PRN Administration constipation Protocol Sertraline HCl 25 mg 05/26/24 21:00 05/29/24 20:47 Sertraline Hcl 25 Mg Tablet PO 06/25/24 20:59 25 mg HS MICAH Administration Spironolactone 25 mg 05/29/24 09:00 05/30/24 08:12 Spironolactone 25 Mg Tablet PO 06/28/24 08:59 25 mg DAILY MICAH Administration Plan This patient is a 54-year-old male with a past medical history of hypertension, chronic kidney disease stage III, history of congestive heart failure HFpEF- diastolic dysfunction stage I 50 to 55% (03/15/2023), and history of poly- substance use disorder (meth/THC) who was initially admitted for acute hypoxic respiratory failure and CHF exacerbation, then upgraded to ICU and downgraded on 05/22/2024-->managing aortic dissection type B. #Aortic Dissection, Type B Sean, stable #Acute hypoxic respiratory Failure, improving #Pneumonia, resolved. #Aortic thrombus, Resolved. #Obstructive Shock, Resolved. #Sepsis, secondary to pneumonia with end organ failure, Resolved. Etiology: Acute hypoxic respiratory failure is likely multi-factorial but CHF exacerbation likely contributing to hypoxemia on addmission given elevated BNP and chest xray on admission showing pulmonary vascular congestion. Sepsis secondary to pneumonia likely contributing to increased work of breathing given update Cxr showing bilateral pneumonia. Consider aspiration pneumonia and increasing Zosyn dosage. Sepsis noted overnight, with a Fever of 101, RR 23, with source of infection as noted in Cxr showing pneumonia. Although Well's criteria on admission was 0, concern for PE increased given possible thrombus noted on CTA neck. Current Well's criteria 3. On heparin drip for thrombus. Thrombus could also be causing respiratory failure leading to possible obstructive shock previous to ICU admission. 05/24/2024-CTA obtained showing aortic dissection, Sean type B. Patients SBP today between 120-140. Currently working on transferring patient. [facility] rejected patient as vascular surgery stated patient is hemodynamically stable. 05/24/2024: Patient continued to have elevated blood pressure Labetolol given X3 throught out the day and hydralazine x1 at 6 PM. Coreg increased to 25 mg PO BIDWM 05/26/2024: Patient was given labetalol IV 60 mg overnight for blood pressure management. Discontinued Coreg today this morning. 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 Berger, mis specialist for patient's pulmonary arterial hypertension and per recommendation started on spironolactone 25 mg once daily 05/27/2024: Labetalol 50 mg BID-->D/C. Started patient on Coreg 25 mg BID, continue Nifedipine 30 mg Qday, spironolactone 25 mg once a day. Start amlodipine 10 mg Qday tomorrow 05/28/2024: Amlodipine added. Systolic Blood pressure continues to be near the 120s. Consider going up on Nifedipine tomorrow. 05/29/2024: regamin of Coreg, nifedipine, spironolactone, and amlodipine will remain. Patient on [place]. spo2 94% on 5 L/min 05/30/2024: Pending PT re-evaluation, labetolol D/C given increase of Nifedipine XL 60 mg qday, Coreg 25 mg BID, Spironolactone 25 mg Qday, and Amlodpine 10 mg QDay (aslo a CCB, caution with Nifedipine). Plan ? restart Coreg 25 mg BID, nifedipine XL 30 mg once daily, added spironolactone 25 mg once daily, and amlodipine 10 -Goal Systolic blood pressure at or near <120 with MAP >70 -If blood pressure remains high and HR <60, consult ICU-->consider nitroprusside -No hospital within area accepted patient including [facility] or [place] -Holding Heparin, given possible hemorrhage into Psoas muscle -Type and screen placed. -Zosyn 3.375 g (05/22/2024-05/23/2024)-->Augmentin 500 BID (05/23--05/26) -blood culture-NO growth after 48 Hours. -Continue N.C. #CHF Exacerbation, imroving #CHF, HFpEF systolic dysfunction with right heart failure EF 50% #Pulmonary HTN #Cor Pulmonale #Hypertension #NSTEMI II, resolved. #Hypertensive Emergency, Resolved #Cardiogenic Shock, Resolved. Etiology: Patient has an extensive history of CHF, systolic dysfunciton with an EF of 50% and elevated pulmonary artery pressure with atrial dilation. In the setting of methamphetamine use, this is likely the cause as both are highly associated with atrial dilation and contributing to CHF-->consider Cor Pulmonale as left ventricle appears normal size and EKG noted right ventricle hypertrophy. On admission, patient likely suffered cardiogenic show from possible vasopasm from meth us and multiple anti-hypertensive medication. Now presenting with troponemia with no ST elevation and likely NSTEMI type II but type I can not be rule out.-->likely NSTEMI II secondary to CHF exacerbation and HTN emergency Diagnostics: Echo: Systolic Dysfunciton, massively dilated right atrium, EF 50%, RVSP 60 mm Hg (moderate severe pulmonary hypertension) Troponin (05/22/2024) 2.926 and 2.721 EKG (05/21/2024): Sinus Tachycardia Current output:Urine output: -2130 L. Weight: 89.074 (decrease) kg. Patient needs standing weight every day for accurate measurements Plan -Continue diuresis with Bumex 1 mg IVP BID -Daily weight checks in standing position -Fluid Restricted -Diet, Na restricted -Keep >4 and Mg >2 -Cardiology Consulted, Dr. Pham, appreciate recommendations -Consider bladder US if need be overnight #LATASHA on CKD III-->CKD III, improving #hypokalemia Etiology: Patient has a past medical history of CHF with a BUN/Cr ratio of 19, thus maybe pre-renal given shock and CHF exacerbation, but worsening CKD likely given intrinsic failure. Initially patient was GFR of 31, now GFR worsening at 27, thus progressing towards end renal failure thus dialysis maybe a possibility. DDx: CKD secondary to Intrinsci renal failure from Meth use as it has been to lead to chronic kidney disease vs post renal obstruction given BPH 05/30/2024-From Nephrology stand point, Dr. Hernandez, patient is cleared. Diagnostics: 05/30: BUN 27, creatinine 1.7, GFR 47 Plan: -Continue to replete electrolytes in setting of Bumex -Continue Bumex 1 mg IVP BID -Avoid nephrotoxins -renally dose medication -follow BUN & Cr -renal diet -Nephrology consulted, Dr. Hernandez, appreciate recommendations # Electrolyte disturbance # Hypophosphatemia Plan ? Continue to replete potassium and phosphate as need # Depression ? Patient was feeling sad and depressive. Plan: ? Started sertraline 25 mg at bedtime #Cirrhosis secondary to Alcohol Use #Hyperbilirubinemia #Mild Transamitis Etiolgoy: Given shock, during ICU admission, likely secondary to hepatic ischemia and complicated by CHF exacerbation causing cardio-hepatic damage. History of Alcohol use disorder likely contributing to cirrhosis. Less likely secondary to infectious cause as hepatitis is negative vs autoimmune condition. LEONARDO and GGT pending. 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 #Hypoxemia vs Sepsis vs stroke Etiology: Likely secondary to hypoxemia given CHF exacerbation on admission requiring intubation prior to being on floors and ischemic stroke as noted on MRI brain-->thus likely multifactoral from stroke, sepsis secondary to pneumonia (resolved), meth use, hypertensive emergency, and aortic dissection, type B. DDx: Poly-substance Use disorder secondary to methamphetamine as withdraw can present as hyperisonia or insominia vs Sepsis, improved -from CAP/Aspiration Diagnostics: -Head/Neck CTA (05/22/2024): Partially visualized descending thoracic aortic aneurysmal dilation w/ extensive thrombus, CTA recommend . NO significan neck arterial stenoses. No cerebral large vessel occlusions or thrombus. -MRI Brain (05/22/2024): Multiple tiny embolic type infartcs left temporal lobe bilateral parietal lobes as above -Lipid Panetl Triglycerides 71, Cholesterol 92, LDL 49, HDL 29, -TSH 2.39 -Utox Positive THC and Meth -Chest x-ray: Mild Bibasilar Pneumonia -CT Head: negative for hemorrhage or mass effect. -LEONARDO-NEGATIVE ASCVD 3.6% 10 year cardiovascular risk, consider moderate to high intensity, currently no Atorvastatin to be added Plan: ? Continuing aspirin, Plavix and statin therapy per neurology recommendation -Heparin Drip, stopped given risk of bleeding into the Psoas muscle, possible hemorrhage -Avoid Hyperthermia and keep Euglycemic -Physical Therapy:Home with Oxygen & Home Health -Neurology Consulted, Dr. Olivares, appreciate recommendations, neurology Health Maintenance: FEN: Diet Cardiac DVT: Holding Heparin, secondary to hemorrhage into psoas muscle; Compression Device Code: Full Code Disp: Pt is currently admitted to floors for further management of acute hypoxic respiratory failure due to right heart failure, aortic dissection type B Sean and ischemic embolic stroke. - The patient's plan was discussed with attending Dr. Matute and senior residents Dr. Karl Barros MD PGY1 Internal Medicine Attending Provider Attestation/Addendum I, Luana Matute, DO, attest that I was physically present for the carbajal portions of the service and evaluated the patient with the resident and I reviewed and discussed the case with the resident and agree with the resident's findings and plans of care as documented above Patient seen and eval this a.m. Resting comfortably and in no acute distress. Blood pressure has been uncontrolled given that patient had received food from home for [place]. Patient also has been getting up out of bed ever since he was placed on nasal cannula. He appears more tachycardic and hypertensive. Will increase nifedipine to 60 mg p.o. daily as beta-prasanna is at its highest dose. Will continue to titrate O2 if patient work with physical therapy.
--- NOTE | 2024-05-30 14:05 | PC.SS ---
Rounding follow up note; Blood pressure is elevated. Discharge tomorrow.
--- NOTE | 2024-05-30 16:57 | PC.PT ---
Patient is clear to use the bathroom and sit in the chair with FWW and staff assist. RN notified.
[2024-05-30] MEDS: SERTRALINE HCL 25 MG TABLET PO (20:53)
[2024-05-30] MEDS: PANTOPRAZOLE INJ 40 MG VIAL IVP (20:53)
--- NOTE | 2024-05-30 23:42 | VVPN_ITS ---
Telemedicine visit statement This visit was conducted with the use of phone was obtained on 05/30/24 at 2342. Documentation for date of: 05/30/24 Subjective Subjective Interval history: Patient is seen in telemetry. No new symptoms reported. Noted blood pressure elevation and addition of nifedipine Virtual exam Vital Signs Temp Pulse Resp BP Pulse Ox O2 Del Method O2 Flow Rate 97.0 F 61 13 147/82 H 91 L Nasal Cannula 3 05/30/24 20:00 05/30/24 20:53 05/30/24 20:00 05/30/24 20:53 05/30/24 20:00 05/30/24 20:00 05/30/24 20:00 FiO2 40 05/30/24 20:00 Objective Labs 05/30/24 05:15 05/30/24 05:15 Labs: Laboratory Results - last 24 hr 05/30/24 05:15 WBC 7.2 RBC 3.82 L Hgb 11.8 L Hct 35.3 L MCV 92 MCH 30.9 MCHC 33.4 RDW Std Deviation 48.6 H Plt Count 337 D Neut % (Auto) 61 Lymph % (Auto) 25 [place] % (Auto) 11 Eos % (Auto) 1 Baso % (Auto) 0 Neut # (Auto) 4.4 Lymph # (Auto) 1.8 [place] # (Auto) 0.8 Eos # (Auto) 0.1 Baso # (Auto) 0.0 Immature Gran # (Auto) 0.08 H Absolute Nucleated RBC 0.00 Immature Gran % 1 H Nucleated RBC % 0 Sodium 135 L Potassium 3.9 Chloride 103 Carbon Dioxide 23.3 Anion Gap 9 BUN 27 H Creatinine 1.7 H Estim Creat Clear Calc 53.9 L eGFR 47 L BUN/Creatinine Ratio 16 Glucose 110 H Calculated Osmolality 276 Calcium 8.7 Corrected Calcium 9.0 Phosphorus 3.6 Magnesium 2.0 Total Bilirubin 2.4 H AST 60 H ALT 63 H Alkaline Phosphatase 96 Total Protein 7.0 Albumin 3.6 Globulin 3.4 Albumin/Globulin Ratio 1.1 L ABG Interpretation ABG results: 05/20/24 05/21/24 05/22/24 17:52 04:45 00:39 ABG pH 7.36 7.42 7.53 H D ABG pCO2 33 44 D 38 ABG pO2 375 H 107 D 43 L* D ABG HCO3 19 L 29 H 31 H ABG O2 Saturation 101 H 98 80 L ABG Base Excess -6 L 3 8 H 05/22/24 05/23/24 00:56 19:04 ABG pH 7.50 H 7.55 H ABG pCO2 40 34 ABG pO2 64 L D 53 L* ABG HCO3 31 H 30 H ABG O2 Saturation 93 89 L ABG Base Excess 7 H 8 H Assessment & Plan Assessment 54 yrs old with PMH of HTN, ckd. heart failure with preserved EF , meth use was admitted on 05/19/20 for HTN emergency and man who presented with hypertensive emergency and Acute hypoxic respi failure . rapid respons was called over night , for change in mentation and neurology was consulted. Thrombolytic was not recommended by tele neuro last night because unclear of his last well known . head ct was negative for acute bleed. ? ?#Embolic infracts lt temporal bilatral paietal lobes . -sudden change in mentation overnight, pt is still obtunded, is on high flow -Head ct -Negative for acute hemorrhage, mass effect or midline shift -head/neck CTA- Acute left sphenoid sinusitis,Partially visualized descending thoracic aortic aneurysmal dilatation with extensive thrombus, recommend CTA chest post intravenous contrast follow-up,No significant neck arterial stenoses,No cerebral large vessel occlusions or thrombus -Echo on 05/20 showed Small LV size, moderate LVH with low normal ejection fraction at around 50% Flattened interatrial septum in both systole and diastole indicating both RV pressure and volume overload. Severely dilated right ventricle with moderate RV systolic dysfunction and massively dilated right atrium. 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 Patient is neurologically stable without any significant focal neurological deficit. Advised him to participate with physical therapy evaluation as his oxygen demand goes down and then will decide about the discharge. Continue with the current management including Bumex, aggressive blood pressure management with additional nifedipine.
[2024-05-31] VITALS (14 sets, daily range): BP systolic 118–155; BP diastolic 70–82; PULSE 65–75; RESP 12–26; TEMP 36.2–36.9; O2SAT 85–94; BMI 26.3
[2024-05-31 06:53] LABS: Alanine Aminotransferase 58 U/L (10-49); Albumin, Serum 3.6 gm/dL (3.5-5.0); Alkaline Phosphatase 96 U/L (46-116); Anion Gap 11 (7-16); Aspartate Amino Transferase 61 U/L (0-34); BUN/Creatinine Ratio 15 Ratio (12-20); Bilirubin,Total 2.6 mg/dL (0.3-1.2); Blood Urea Nitrogen 26 mg/dL (9-23); Calcium (Corrected) 9.3 mg/dL (8.5-10.1); Chloride 104 mMol/L (98-107); Creatinine (Component) 1.7 mg/dL (0.6-1.3); Estimated Creatinine Clearance 53.9 mL/min (>60); Globulin 3.5 gm/dL (2.3-3.5); Glucose 79 mg/dL (74-106); Magnesium 1.9 mg/dL (1.6-2.6); Osmolality,Calculated 277 (275-295); Phosphorous 3.7 mg/dL (2.4-5.1); Potassium 4.4 mMol/L (3.4-5.1); Sodium 137 mMol/L (136-145); Total Protein 7.1 gm/dL (5.7-8.2); eGFR 47 See Note
[2024-05-31 07:15] LABS: Basophils % (Auto) 0 % (0-2.5); Eosinophils % (Auto) 0 % (0-10); Hematocrit 36.1 % (41.0-53.0); Hemoglobin 12.2 g/dL (13.5-16.0); Immature Granulocytes % (Auto) 1 % (0-0); Immature Granulocytes Auto 0.07 Thou/mm3 (0.00-0.00); Lymphocytes # (Auto) 1.5 Thou/mm3 (1.0-4.8); Lymphocytes % (Auto) 14 % (10-50); Mean Corpuscular HGB Conc 33.8 g/dl (31.0-37.0); Mean Corpuscular Hemoglobin 31.3 pg (25.0-35.0); Mean Corpuscular Volume 93 fL (80-100); Monocytes # (Auto) 0.8 Thou/mm3 (0.0-0.8); Monocytes % (Auto) 8 % (0-12); Neutrophils # (Auto) 7.7 Thou/mm3 (1.8-7.7); Neutrophils % (Auto) 77 % (37-80); Nucleated Red Blood Cell % 0 /100 WBC (0); Platelet Count 371 Thou/mm3 (140-440); RDW Standard Deviation 47.8 fL (35.1-43.9); White Blood Count 10.1 Thou/mm3 (3.8-10.6)
--- NOTE | 2024-05-31 08:10 | PD.RESPRO ---
Documentation for date of: 05/31/24 Subjective Subjective Interval history: Mr. De is a 54-year-old male with past medical history of hypertension, CKD stage IIIb, HFpEF, methamphetamine use was admitted for acute hypoxic respiratory failure due to CHF exacerbation and hypertensive emergency. Patient was upgraded to ICU due to altered mental status due to hypotension and hypoxia. Therefore patient ended up getting intubated for airway protection and started on Levophed during ICU course. Patient was given reversal for calcium channel prasanna with calcium chloride x 3 after which patient's blood pressure showed improvement. 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 laboratory technical specialist today 05/22/24 patient had a stroke alert called for change in mental status GCS was 12, teleneuro assessed the patient and recommended further investigations. Patient's head and neck CTA was significant for descending thoracic aorta aneurysmal dilation with extensive thrombus and radiology recommended CTA chest post IV contrast follow-up. Patient is currently on Bumex 2 mg IV twice daily for IV diuresis, Zosyn for pneumonia coverage, heparin GGT due to concern of NSTEMI, Coreg, Flomax and DuoNeb treatments. Nephrology team consulted as patient has LATASHA on CKD with BUN 54, creatinine 2.7, GFR 27 per chart review patient's baseline GFR is 44. Patient seen at bedside, patient is arousable to sternal rub, unable to answer questions, not conversational, patient's mother at bedside case discussed extensively with her. Patient is currently on IV Bumex, will be given IV contrast for CTA. Discussed with patient's mother at bedside that if patient's renal function continues to decline patient might need dialysis temporarily, patient's mother is the primary decision maker and agrees with dialysis if needed. 05/26/2024: Patient seen at the bedside in telemetry. Patient was not a candidate for transfer, his condition continues to be managed medically with aggressive BP control with goal SBP <130. Patient denies chest pain, headache, abdominal pain. UO 2.2 L. Labs showed sodium 134, potassium 3.6, BUN 39, creatinine 1.7, GFR 58.3, kidney functions improving. Will continue to monitor renal function and urine output. Continues to be on high flow, oxygen requirements are decreasing, right now on 15 L 40% FiO2. 05/27/2024 patient currently seen in telemetry. Deemed not a candidate for transfer. Resting comfortably. Still on high flow oxygen. Blood pressure 139/81, heart rate 67. Hemoglobin 11.3. Sodium 134, potassium 3.6, BUN 33, creatinine 1.6, GFR 51, calcium 8.5, phosphorus 2.5, magnesium 2.1, AST 134, ALT 95, albumin 3.4 05/28/2024 patient currently seen in telemetry. Still remains on high flow oxygen. Wants to go home. Labs, medications have been reviewed. Currently on diuretics. Blood pressure seems to be stable. Patient has [place] type B aortic dissection-medical management per vascular team. Will start weaning down on oxygen. Suggested to move out of bed to chair. Not ready for discharge yet. 05/30/2024 patient currently seen in telemetry. Patient currently seen on 4 L nasal cannula. His blood pressure is on the higher side. Waiting for the blood pressure he can be discharged. His fianc?e is at the bedside. Continue with diuretics. Creatinine stable. Out of bed to chair. 05/31/24: Patient seen and examined at bedside on [facility]. Patient currently saturating well on 3 L nasal cannula, patient's blood pressure was elevated, started on losartan 25 mg daily. Patient's fianc? at bedside. Anticipate discharge to nursing home facility today. Exam Vital Signs Temp Pulse Resp BP Pulse Ox O2 Del Method O2 Flow Rate 98.3 F 73 26 H 138/80 H 92 L Nasal Cannula 2 05/31/24 04:00 05/31/24 04:00 05/31/24 04:00 05/31/24 04:00 05/31/24 04:00 05/31/24 04:00 05/31/24 04:00 FiO2 40 05/31/24 00:00 Narrative Exam Physical Exam General: Awake and in no acute distress. Comfortable HEENT: Normocephalic, atraumatic, mucous membranes moist. Heart: Regular rate and rhythm, no murmurs. Lungs: Fine crackles at the bases Abdomen: Soft, nondistended, nontender, positive bowel sounds. ?No guarding or rebound tenderness. Neurologic: Alert and oriented x3, no gross neurological deficit, and patient able to move all 4 extremities. Extremities: No edema. Skin: No rash or ecchymoses. Objective Labs 06/01/24 11:38 06/01/24 05:48 Labs: Laboratory Results - last 24 hr 05/31/24 04:55 WBC 10.1 D RBC 3.90 L Hgb 12.2 L Hct 36.1 L MCV 93 MCH 31.3 MCHC 33.8 RDW Std Deviation 47.8 H Plt Count 371 D Neut % (Auto) 77 Lymph % (Auto) 14 [place] % (Auto) 8 Eos % (Auto) 0 Baso % (Auto) 0 Neut # (Auto) 7.7 Lymph # (Auto) 1.5 [place] # (Auto) 0.8 Eos # (Auto) 0.0 Baso # (Auto) 0.0 Immature Gran # (Auto) 0.07 H Absolute Nucleated RBC 0.00 Immature Gran % 1 H Nucleated RBC % 0 Sodium 137 Potassium 4.4 D Chloride 104 Carbon Dioxide 22.0 Anion Gap 11 BUN 26 H Creatinine 1.7 H Estim Creat Clear Calc 53.9 L eGFR 47 L BUN/Creatinine Ratio 15 Glucose 79 Calculated Osmolality 277 Calcium 9.0 Corrected Calcium 9.3 Phosphorus 3.7 Magnesium 1.9 Total Bilirubin 2.6 H AST 61 H ALT 58 H Alkaline Phosphatase 96 Total Protein 7.1 Albumin 3.6 Globulin 3.5 Albumin/Globulin Ratio 1.0 L ABG Interpretation ABG results: 05/20/24 05/21/24 05/22/24 17:52 04:45 00:39 ABG pH 7.36 7.42 7.53 H D ABG pCO2 33 44 D 38 ABG pO2 375 H 107 D 43 L* D ABG HCO3 19 L 29 H 31 H ABG O2 Saturation 101 H 98 80 L ABG Base Excess -6 L 3 8 H 05/22/24 05/23/24 00:56 19:04 ABG pH 7.50 H 7.55 H ABG pCO2 40 34 ABG pO2 64 L D 53 L* ABG HCO3 31 H 30 H ABG O2 Saturation 93 89 L ABG Base Excess 7 H 8 H Quality Measures Quality Measures VTE prophylaxis (Holding heparin ) Assessment & Plan Assessment Current Active Medications: Generic Name Dose Route Start Last Admin Trade Name Freq PRN Reason Stop Dose Admin Acetaminophen 650 mg 05/20/24 01:03 05/24/24 23:11 Acetaminophen 325 Mg Tablet PO 06/19/24 01:02 650 mg Q6H PRN Administration Pain 1-3 or Fever >100.3 Amlodipine Besylate 10 mg 05/28/24 09:00 05/30/24 08:12 Amlodipine Besylate 5 Mg Tablet PO 06/27/24 08:59 10 mg QDAY MICAH Administration Aspirin 81 mg 05/26/24 09:00 05/30/24 08:11 Aspirin Ec 81 Mg Tabec PO 06/25/24 08:59 81 mg QDAY MICAH Administration Bumetanide 1 mg 05/24/24 13:15 05/30/24 20:53 Bumetanide Inj 0.25 Mg/Ml Vial 4 Ml IVP 06/23/24 13:14 1 mg BID MICAH Administration Carvedilol 25 mg 05/27/24 19:00 05/30/24 16:37 Carvedilol 12.5 Mg Tablet PO 06/26/24 18:59 25 mg BIDWM MICAH Administration Clopidogrel Bisulfate 75 mg 05/26/24 09:00 05/30/24 08:12 Clopidogrel Bisulfate 75 Mg Tablet PO 06/16/24 08:59 75 mg QDAY MICAH Administration Ferrous Sulfate 325 mg 05/28/24 13:45 05/30/24 08:12 Ferrous Sulf 325 Mg Tablet PO 06/27/24 13:44 325 mg QOD MICAH Administration Magnesium Sulfate 2 gm in 50 mls @ 25 mls/hr 05/31/24 08:06 Magnesium Sulfate Ivpb IV 05/31/24 10:05 X1 ONE Nifedipine 60 mg 05/31/24 09:00 Nifedipine Xl 30 Mg Tabcr PO 06/30/24 08:59 QDAY MICAH Ondansetron HCl 4 mg 05/20/24 01:03 Ondansetron Inj 2 Mg/Ml Inj 2 Ml IV 06/19/24 01:02 Q6H PRN NAUSEA OR VOMITING Protocol Pantoprazole Sodium 40 mg 05/20/24 21:00 05/30/24 20:53 Pantoprazole Inj 40 Mg Vial IVP 06/19/24 20:59 40 mg HS MICAH Administration Pharmacy Consult 1 each 05/21/24 08:42 Pharmacy Renal Dose Adjustment 1 Ea XX 06/20/24 08:41 PRN PRN CONSULT Polyethylene Glycol 17 gm 05/25/24 14:45 05/30/24 08:19 Polyethylene Glycol 17 Gm Packet PO 06/24/24 14:44 Not Given QDAY MICAH Sennosides 1 tab 05/23/24 07:55 05/26/24 20:31 Senna Tablet PO 06/19/24 08:59 1 tab QDAY PRN Administration constipation Protocol Sertraline HCl 25 mg 05/26/24 21:00 05/30/24 20:53 Sertraline Hcl 25 Mg Tablet PO 06/25/24 20:59 25 mg HS MICAH Administration Spironolactone 25 mg 05/29/24 09:00 05/30/24 08:12 Spironolactone 25 Mg Tablet PO 06/28/24 08:59 25 mg DAILY MICAH Administration Plan Summary: Mr. De is a 54-year-old male with past medical history of hypertension, CKD stage IIIb, HFpEF, methamphetamine use was admitted for acute hypoxic respiratory failure due to CHF exacerbation and hypertensive emergency. Nephrology team consulted for LATASHA on CKD. #LATASHA on CKD stage IIIb, improving Creatinine 1.67 with a GFR 47 LFTs mildly elevated probably from passive liver congestion Patient has good urine output, produced about 2.35 L in the last 24 hours Plan: -Currently on IV Bumex 1 mg IVP twice daily -Strict I&O's -Dose medication renally -Avoid nephrotoxic medications -Monitor renal panel closely -Patient can be discharged on p.o. Bumex. Renal hutchinson stable for discharge. 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 Hernandez. Otoniel Allen PGY1 Attending Provider Attestation/Addendum Patient seen and examined with resident physician Dr. Allen. Note reviewed, agree with findings and recommendations. Blood pressure tad better at 151/82, heart rate 69. Creatinine 1.7. Renal hutchinson stable for discharge. Plan of care discussed with girlfriend at bedside
--- NOTE | 2024-05-31 08:17 | PC.SS ---
SS follow up note; SS contacted patient's nurse Mayra and informed her that patient is needing an 02 test.
[2024-05-31] MEDS: Magnesium Sulfate 2 GM Ivpb 2 GM/50 ML BAG IV (08:51)
[2024-05-31] MEDS: ASPIRIN EC 81 MG TABEC PO (08:55)
[2024-05-31] MEDS: NIFEdipine XL 30 MG TABCR 60 MG PO (08:56)
[2024-05-31] MEDS: carVEDILOL 12.5 MG TABLET 25 MG PO ×2 (08:56→18:46)
[2024-05-31] MEDS: LOSARTAN POTASSIUM 25 MG TABLET PO (08:57)
[2024-05-31] MEDS: CLOPIDOGREL BISULFATE 75 MG TABLET PO (08:57)
[2024-05-31] MEDS: SPIRONOLACTONE 25 MG TABLET PO (08:57)
--- NOTE | 2024-05-31 08:57 | PC.NURSE ---
Pt's O2 92% on 3L NC, pt's O2 at rest on RA dropped to 88%, Put pt back on 3L NC O2 went up to 92/93%
[2024-05-31] MEDS: BUMETANIDE INJ 0.25 MG/ML VIAL 4 ML 1 MG IVP ×2 (08:58→20:54)
--- NOTE | 2024-05-31 09:11 | PC.SS ---
SS follow up note; SS sent DME referral for 02 and FWW through [employer].
--- NOTE | 2024-05-31 10:32 | PC.SS ---
Addendum entered by Gisela Hoover 05/31/24 13:35: SS follow up note; Sarmad delivered 02 and walker at bedside, patient could discharge home once medically cleared. Original Note: SS follow up note; Patient's B/P is being monitored. Sarmad will be delivering 02 and FWW at bedside.
--- NOTE | 2024-05-31 12:22 | ESPR_ITS ---
Documentation for date of: 05/31/24 Subjective Subjective Interval history: Patient was examined bedside this morning. he is currently on 3 L of oxygen . Exam Vital Signs Temp Pulse Resp BP Pulse Ox O2 Del Method O2 Flow Rate 97.2 F 72 22 H 148/79 H 91 L Nasal Cannula 3 05/31/24 08:00 05/31/24 08:58 05/31/24 08:00 05/31/24 08:58 05/31/24 08:00 05/31/24 08:00 05/31/24 08:00 FiO2 40 05/31/24 00:00 Narrative Exam GENERAL: Comfortable adult seen resting comfortably in hospital bed, no acute distress HEENT: Normocephalic, atraumatic. Pupils are equal and reactive. Oral mucosa is moist. NECK: Supple, nontender, no JVD CHEST: Symmetrical, atraumatic and with equal expansion ,Nontender on palpation CARDIOVASCULAR: Heart regular rhythm & rate. S1/S2. no murmur or gallop rub or extra beats. LUNGS: Clear to auscultation bilaterally with symmetrical chest rise. No laboring tachypnea or wheezing. No intercostal subcostal retraction. No rales and no rhonchi. ABDOMEN: Soft, flat, nontender to palpation, no guarding or rebound tenderness. Active and normal bowel sounds. EXTREMITIES:Moves all 4 extremities,No B/L LE edema. SKIN: Warm and dry, no jaundice or rashes noted. NEURO: Patient is AO x 3, Cranial nerves II through XII grossly intact. There is no focal neurologic deficits noted. PSYCHIATRIC: Patient is in normal mood, cooperative, no SI or HI or hallucinations. Objective Labs 06/01/24 11:38 06/01/24 05:48 Labs: Laboratory Results - last 24 hr 05/31/24 04:55 WBC 10.1 D RBC 3.90 L Hgb 12.2 L Hct 36.1 L MCV 93 MCH 31.3 MCHC 33.8 RDW Std Deviation 47.8 H Plt Count 371 D Neut % (Auto) 77 Lymph % (Auto) 14 [place] % (Auto) 8 Eos % (Auto) 0 Baso % (Auto) 0 Neut # (Auto) 7.7 Lymph # (Auto) 1.5 [place] # (Auto) 0.8 Eos # (Auto) 0.0 Baso # (Auto) 0.0 Immature Gran # (Auto) 0.07 H Absolute Nucleated RBC 0.00 Immature Gran % 1 H Nucleated RBC % 0 Sodium 137 Potassium 4.4 D Chloride 104 Carbon Dioxide 22.0 Anion Gap 11 BUN 26 H Creatinine 1.7 H Estim Creat Clear Calc 53.9 L eGFR 47 L BUN/Creatinine Ratio 15 Glucose 79 Calculated Osmolality 277 Calcium 9.0 Corrected Calcium 9.3 Phosphorus 3.7 Magnesium 1.9 Total Bilirubin 2.6 H AST 61 H ALT 58 H Alkaline Phosphatase 96 Total Protein 7.1 Albumin 3.6 Globulin 3.5 Albumin/Globulin Ratio 1.0 L ABG Interpretation ABG results: 05/20/24 05/21/24 05/22/24 17:52 04:45 00:39 ABG pH 7.36 7.42 7.53 H D ABG pCO2 33 44 D 38 ABG pO2 375 H 107 D 43 L* D ABG HCO3 19 L 29 H 31 H ABG O2 Saturation 101 H 98 80 L ABG Base Excess -6 L 3 8 H 05/22/24 05/23/24 00:56 19:04 ABG pH 7.50 H 7.55 H ABG pCO2 40 34 ABG pO2 64 L D 53 L* ABG HCO3 31 H 30 H ABG O2 Saturation 93 89 L ABG Base Excess 7 H 8 H Quality Measures Quality Measures VTE prophylaxis (Holding heparin ) Assessment & Plan Assessment Current Active Medications: Generic Name Dose Route Start Last Admin Trade Name Freq PRN Reason Stop Dose Admin Acetaminophen 650 mg 05/20/24 01:03 05/24/24 23:11 Acetaminophen 325 Mg Tablet PO 06/19/24 01:02 650 mg Q6H PRN Administration Pain 1-3 or Fever >100.3 Aspirin 81 mg 05/26/24 09:00 05/31/24 08:55 Aspirin Ec 81 Mg Tabec PO 06/25/24 08:59 81 mg QDAY MICAH Administration Atorvastatin Calcium 40 mg 05/31/24 21:00 Atorvastatin Calcium 20 Mg Tablet PO 06/30/24 20:59 HS MICAH Bumetanide 1 mg 05/24/24 13:15 05/31/24 08:58 Bumetanide Inj 0.25 Mg/Ml Vial 4 Ml IVP 06/23/24 13:14 1 mg BID MICAH Administration Carvedilol 25 mg 05/27/24 19:00 05/31/24 08:56 Carvedilol 12.5 Mg Tablet PO 06/26/24 18:59 25 mg BIDWM MICAH Administration Clopidogrel Bisulfate 75 mg 05/26/24 09:00 05/31/24 08:57 Clopidogrel Bisulfate 75 Mg Tablet PO 06/16/24 08:59 75 mg QDAY MICAH Administration Ferrous Sulfate 325 mg 05/28/24 13:45 05/30/24 08:12 Ferrous Sulf 325 Mg Tablet PO 06/27/24 13:44 325 mg QOD MICAH Administration Losartan Potassium 25 mg 05/31/24 09:00 05/31/24 08:57 Losartan Potassium 25 Mg Tablet PO 06/30/24 08:59 25 mg QDAY MICAH Administration Nifedipine 90 mg 06/01/24 09:00 Nifedipine Xl 30 Mg Tabcr PO 07/01/24 08:59 QDAY MICAH Nifedipine 30 mg 05/31/24 13:00 Nifedipine Xl 30 Mg Tabcr PO 05/31/24 13:01 X1 ONE Ondansetron HCl 4 mg 05/20/24 01:03 Ondansetron Inj 2 Mg/Ml Inj 2 Ml IV 06/19/24 01:02 Q6H PRN NAUSEA OR VOMITING Protocol Pantoprazole Sodium 40 mg 05/20/24 21:00 05/30/24 20:53 Pantoprazole Inj 40 Mg Vial IVP 06/19/24 20:59 40 mg HS MICAH Administration Pharmacy Consult 1 each 05/21/24 08:42 Pharmacy Renal Dose Adjustment 1 Ea XX 06/20/24 08:41 PRN PRN CONSULT Polyethylene Glycol 17 gm 05/25/24 14:45 05/31/24 09:04 Polyethylene Glycol 17 Gm Packet PO 06/24/24 14:44 Not Given QDAY MICAH Sennosides 1 tab 05/23/24 07:55 05/26/24 20:31 Senna Tablet PO 06/19/24 08:59 1 tab QDAY PRN Administration constipation Protocol Sertraline HCl 25 mg 05/26/24 21:00 05/30/24 20:53 Sertraline Hcl 25 Mg Tablet PO 06/25/24 20:59 25 mg HS MICAH Administration Spironolactone 25 mg 05/29/24 09:00 05/31/24 08:57 Spironolactone 25 Mg Tablet PO 06/28/24 08:59 25 mg DAILY MICAH Administration Plan 54 yrs old with PMH of HTN, ckd. heart failure with preserved EF , meth use was admitted on 05/19/20 for HTN emergency and man who presented with hypertensive emergency and Acute hypoxic respi failure . rapid respons was called over night , for change in mentation and neurology was consulted. Thrombolytic was not recommended by tele neuro last night because unclear of his last well known . head ct was negative for acute bleed. ? ?#Embolic infracts lt temporal bilatral paietal lobes . -sudden change in mentation overnight, pt is still obtunded, is on high flow -Head ct -Negative for acute hemorrhage, mass effect or midline shift -head/neck CTA- Acute left sphenoid sinusitis,Partially visualized descending thoracic aortic aneurysmal dilatation with extensive thrombus, recommend CTA chest post intravenous contrast follow-up,No significant neck arterial stenoses,No cerebral large vessel occlusions or thrombus -Echo on 05/20 showed Small LV size, moderate LVH with low normal ejection fraction at around 50% Flattened interatrial septum in both systole and diastole indicating both RV pressure and volume overload. Severely dilated right ventricle with moderate RV systolic dysfunction and massively dilated right atrium. 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 -Patient is neurologically stable without any significant focal neurological deficit. -Advised him to participate with physical therapy evaluation as his oxygen demand goes down and then will decide about the discharge. -Continue with the current management including Bumex, aggressive blood pressure management with additional nifedipine. Rest of the medical management as per primary team. Discussed the patient with my attending Dr Elise Barajas MD,PGY-3 Attending Provider Attestation/Addendum Patient was seen and examined at the bedside and agreed with resident's findings, assessment and plan of care.
--- NOTE | 2024-05-31 13:31 | ESPR_ITS ---
<Statement entered by Julien Alas MD - 05/31/24 15:19> Patient was seen and examined at the bedside. Patient was also present at the bedside. Patient reported that he feels lethargic however was able to ambulate and walk independently down the hallway. Overnight, patient's blood pressure remained unstable and elevated and he has been eating from outside hospital. Mgmt Consultant recommended to increase nifedipine XL 90 mg once daily, add losartan 25 mg, continue Coreg and spironolactone and discontinue amlodipine and keep goal of systolic blood pressure in 120s. Patient's urine output is 3.5 L with negative balance of 2.5. Labs showed stable white count and hemoglobin at 12.2. Chemistry panel was unremarkable. Kidney functions consistent with CKD with BUN 26 and creatinine 1.7. PT recommended home as patient is able to walk independently and recommended front wheeled walker and home oxygen upon discharge. All labs and orders were reviewed. I saw and examined the patient, and I agree with current management stated by Dr Fiorella MD,PGY1. Plan of care was discussed with the attending physician and resident physician. Disclaimer: Despite multiple revisions, due to the dictation software being used, the document bellow may not be free of grammatical errors including phonetic/typographic errors. However, this does not deter from our commitment to providing health care in the patient's best interest in mind. Dr. Evette MD, PGY 2 Documentation for date of: 05/31/24 Subjective Subjective Interval history: Patient is a 54-year-old male with a past medical history of hypertension, chronic kidney disease stage III, history of congestive heart failure HFpEF- diastolic dysfunction stage I 50 to 55% (03/15/2023), and history of poly- substance use disorder (meth/THC) who was initially admitted for acute hypoxic respiratory failure and CHF exacerbation, then found to have an aortic dissection, type B. Overnight, patient continues to have elevated systolic blood pressure between 130-150s. Patient denied chest pain or dsypnea. Continues to improve on Nasal Cannula on 3 liters/min.Patient will follow up with PT today. Exam Vital Signs Temp Pulse Resp BP Pulse Ox O2 Del Method O2 Flow Rate 98.4 F 69 17 151/82 H 94 L Nasal Cannula 3 05/31/24 12:00 05/31/24 12:00 05/31/24 12:00 05/31/24 12:00 05/31/24 12:00 05/31/24 12:00 05/31/24 12:00 FiO2 40 05/31/24 00:00 Narrative Exam General Appearance: Alert & Oriented X3, well-nourished male who is lying in bed in no acute distress HEENT: Skull symmetrical and atraumatic. Conjunctivae pink and moist. Pupils equal, round, reactive to light and accommodation (PERRL). External ear without lesion or discharge. Straight, nares patient, mucosa pink, no discharge. Cardio: Normal Rate and Rhythm with S1 and S2 heart sounds. No murmurs or extra heart sounds auscultated. No bruits on carotid auscultation. No peripheral edema or cyanosis. No JVD noted. Lungs: Symmetric with good expansion. Chest and back non-tender. Breath sounds vesicular without crackles, wheezing or rhonchi Abdomen: Non-tender, Non-distended, Normal Reactive Bowel Sounds Neuro: Alert, cooperative, oriented to person, place, and time. Speech clear. CN grossly intact. Upper motor strength 5/5 and Lower motor strength 5/5. Sensation intact. Objective Labs 06/01/24 05:48 06/01/24 05:48 Labs: Laboratory Results - last 24 hr 05/31/24 04:55 WBC 10.1 D RBC 3.90 L Hgb 12.2 L Hct 36.1 L MCV 93 MCH 31.3 MCHC 33.8 RDW Std Deviation 47.8 H Plt Count 371 D Neut % (Auto) 77 Lymph % (Auto) 14 Kay % (Auto) 8 Eos % (Auto) 0 Baso % (Auto) 0 Neut # (Auto) 7.7 Lymph # (Auto) 1.5 Kay # (Auto) 0.8 Eos # (Auto) 0.0 Baso # (Auto) 0.0 Immature Gran # (Auto) 0.07 H Absolute Nucleated RBC 0.00 Immature Gran % 1 H Nucleated RBC % 0 Sodium 137 Potassium 4.4 D Chloride 104 Carbon Dioxide 22.0 Anion Gap 11 BUN 26 H Creatinine 1.7 H Estim Creat Clear Calc 53.9 L eGFR 47 L BUN/Creatinine Ratio 15 Glucose 79 Calculated Osmolality 277 Calcium 9.0 Corrected Calcium 9.3 Phosphorus 3.7 Magnesium 1.9 Total Bilirubin 2.6 H AST 61 H ALT 58 H Alkaline Phosphatase 96 Total Protein 7.1 Albumin 3.6 Globulin 3.5 Albumin/Globulin Ratio 1.0 L ABG Interpretation ABG results: 05/20/24 05/21/24 05/22/24 17:52 04:45 00:39 ABG pH 7.36 7.42 7.53 H D ABG pCO2 33 44 D 38 ABG pO2 375 H 107 D 43 L* D ABG HCO3 19 L 29 H 31 H ABG O2 Saturation 101 H 98 80 L ABG Base Excess -6 L 3 8 H 05/22/24 05/23/24 00:56 19:04 ABG pH 7.50 H 7.55 H ABG pCO2 40 34 ABG pO2 64 L D 53 L* ABG HCO3 31 H 30 H ABG O2 Saturation 93 89 L ABG Base Excess 7 H 8 H Quality Measures Quality Measures VTE prophylaxis (Holding heparin ) Assessment & Plan Assessment Current Active Medications: Generic Name Dose Route Start Last Admin Trade Name Freq PRN Reason Stop Dose Admin Acetaminophen 650 mg 05/20/24 01:03 05/24/24 23:11 Acetaminophen 325 Mg Tablet PO 06/19/24 01:02 650 mg Q6H PRN Administration Pain 1-3 or Fever >100.3 Aspirin 81 mg 05/26/24 09:00 05/31/24 08:55 Aspirin Ec 81 Mg Tabec PO 06/25/24 08:59 81 mg QDAY MICAH Administration Atorvastatin Calcium 40 mg 05/31/24 21:00 Atorvastatin Calcium 20 Mg Tablet PO 06/30/24 20:59 HS MICAH Bumetanide 1 mg 05/24/24 13:15 05/31/24 08:58 Bumetanide Inj 0.25 Mg/Ml Vial 4 Ml IVP 06/23/24 13:14 1 mg BID MICAH Administration Carvedilol 25 mg 05/27/24 19:00 05/31/24 08:56 Carvedilol 12.5 Mg Tablet PO 06/26/24 18:59 25 mg BIDWM MICAH Administration Clopidogrel Bisulfate 75 mg 05/26/24 09:00 05/31/24 08:57 Clopidogrel Bisulfate 75 Mg Tablet PO 06/16/24 08:59 75 mg QDAY MICAH Administration Ferrous Sulfate 325 mg 05/28/24 13:45 05/30/24 08:12 Ferrous Sulf 325 Mg Tablet PO 06/27/24 13:44 325 mg QOD MICAH Administration Losartan Potassium 25 mg 05/31/24 09:00 05/31/24 08:57 Losartan Potassium 25 Mg Tablet PO 06/30/24 08:59 25 mg QDAY MICAH Administration Nifedipine 90 mg 06/01/24 09:00 Nifedipine Xl 30 Mg Tabcr PO 07/01/24 08:59 QDAY MICAH Ondansetron HCl 4 mg 05/20/24 01:03 Ondansetron Inj 2 Mg/Ml Inj 2 Ml IV 06/19/24 01:02 Q6H PRN NAUSEA OR VOMITING Protocol Pantoprazole Sodium 40 mg 05/20/24 21:00 05/30/24 20:53 Pantoprazole Inj 40 Mg Vial IVP 06/19/24 20:59 40 mg HS MICAH Administration Pharmacy Consult 1 each 05/21/24 08:42 Pharmacy Renal Dose Adjustment 1 Ea XX 06/20/24 08:41 PRN PRN CONSULT Polyethylene Glycol 17 gm 05/25/24 14:45 05/31/24 09:04 Polyethylene Glycol 17 Gm Packet PO 06/24/24 14:44 Not Given QDAY MICAH Sennosides 1 tab 05/23/24 07:55 05/26/24 20:31 Senna Tablet PO 06/19/24 08:59 1 tab QDAY PRN Administration constipation Protocol Sertraline HCl 25 mg 05/26/24 21:00 05/30/24 20:53 Sertraline Hcl 25 Mg Tablet PO 06/25/24 20:59 25 mg HS MICAH Administration Spironolactone 25 mg 05/29/24 09:00 05/31/24 08:57 Spironolactone 25 Mg Tablet PO 06/28/24 08:59 25 mg DAILY MICAH Administration Plan This patient is a 54-year-old male with a past medical history of hypertension, chronic kidney disease stage III, history of congestive heart failure HFpEF- diastolic dysfunction stage I 50 to 55% (03/15/2023), and history of poly- substance use disorder (meth/THC) who was initially admitted for acute hypoxic respiratory failure and CHF exacerbation, then upgraded to ICU and downgraded on 05/22/2024-->managing chronic aortic dissection type B. # Chronic Aortic Dissection, Type B [place], stable #Acute hypoxic respiratory Failure, improving #Pneumonia, resolved. #Aortic thrombus, Resolved. #Obstructive Shock, Resolved. #Sepsis, secondary to pneumonia with end organ failure, Resolved. Etiology: Acute hypoxic respiratory failure is likely multi-factorial but CHF exacerbation likely contributing to hypoxemia on addmission given elevated BNP and chest xray on admission showing pulmonary vascular congestion. Sepsis secondary to pneumonia likely contributing to increased work of breathing given update Cxr showing bilateral pneumonia. Consider aspiration pneumonia and increasing Zosyn dosage. Sepsis noted overnight, with a Fever of 101, RR 23, with source of infection as noted in Cxr showing pneumonia. Although Well's criteria on admission was 0, concern for PE increased given possible thrombus noted on CTA neck. Current Well's criteria 3. On heparin drip for thrombus. Thrombus could also be causing respiratory failure leading to possible obstructive shock previous to ICU admission. 05/24/2024-CTA obtained showing aortic dissection, [place] type B. Patients SBP today between 120-140. Currently working on transferring patient. [facility] as vascular surgery stated patient is hemodynamically stable. 05/24/2024: Patient continued to have elevated blood pressure Labetolol given X3 throught out the day and hydralazine x1 at 6 PM. Coreg increased to 25 mg PO BIDWM 05/26/2024: Patient was given labetalol IV 60 mg overnight for blood pressure management. Discontinued Coreg today this morning. 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 Berger, bed laster for patient's pulmonary arterial hypertension and per recommendation started on spironolactone 25 mg once daily 05/27/2024: Labetalol 50 mg BID-->D/C. Started patient on Coreg 25 mg BID, continue Nifedipine 30 mg Qday, spironolactone 25 mg once a day. Start amlodipine 10 mg Qday tomorrow 05/28/2024: Amlodipine added. Systolic Blood pressure continues to be near the 120s. Consider going up on Nifedipine tomorrow. 05/29/2024: regamin of Coreg, nifedipine, spironolactone, and amlodipine will remain. Patient on N.C. spo2 94% on 5 L/min 05/30/2024: Pending PT re-evaluation, labetolol D/C given increase of Nifedipine XL 60 mg qday, Coreg 25 mg BID, Spironolactone 25 mg Qday, and Amlodpine 10 mg QDay (aslo a CCB, caution with Nifedipine). 05/31/2024: NIfedipine XL increased to 90 mg Qday, Coreg 25 mg BID, Spironolactone 25 mg Qday, Losartan 25 mg Qday Plan ? Coreg 25 mg BID, nifedipine XL 90 mg once daily, added spironolactone 25 mg once daily, and Losartan 25 mg Qday -No hospital within area accepted patient including [facility] or [place] -Holding Heparin, given possible hemorrhage into Psoas muscle -Type and screen placed. -Zosyn 3.375 g (05/22/2024-05/23/2024)-->Augmentin 500 BID (05/23--05/26) -blood culture-NO growth after 48 Hours. -Continue N.C. #CHF Exacerbation, imroving #CHF, HFpEF systolic dysfunction with right heart failure EF 50% #Pulmonary HTN #Cor Pulmonale #Hypertension #NSTEMI II, resolved. #Hypertensive Emergency, Resolved #Cardiogenic Shock, Resolved. Etiology: Patient has an extensive history of CHF, systolic dysfunciton with an EF of 50% and elevated pulmonary artery pressure with atrial dilation. In the setting of methamphetamine use, this is likely the cause as both are highly associated with atrial dilation and contributing to CHF-->consider Cor Pulmonale as left ventricle appears normal size and EKG noted right ventricle hypertrophy. On admission, patient likely suffered cardiogenic show from possible vasopasm from meth us and multiple anti-hypertensive medication. Now presenting with troponemia with no ST elevation and likely NSTEMI type II but type I can not be rule out.-->likely NSTEMI II secondary to CHF exacerbation and HTN emergency Diagnostics: Echo: Systolic Dysfunciton, massively dilated right atrium, EF 50%, RVSP 60 mm Hg (moderate severe pulmonary hypertension) Troponin (05/22/2024) 2.926 and 2.721 EKG (05/21/2024): Sinus Tachycardia Current output: output 3100 Input 2120 balance -980 Weight 88.269 kg (previous 89.074) Patient needs standing weight every day for accurate measurements Plan -Continue diuresis with Bumex 1 mg IVP BID -Daily weight checks in standing position -Fluid Restricted -Diet, Na restricted -Keep >4 and Mg >2 -Cardiology Consulted, Dr. Pham, appreciate recommendations -Consider bladder US if need be overnight #LATASHA on CKD III-->CKD III, improving #hypokalemia Etiology: Patient has a past medical history of CHF with a BUN/Cr ratio of 19, thus maybe pre-renal given shock and CHF exacerbation, but worsening CKD likely given intrinsic failure. Initially patient was GFR of 31, now GFR worsening at 27, thus progressing towards end renal failure thus dialysis maybe a possibility. DDx: CKD secondary to Intrinsci renal failure from Meth use as it has been to lead to chronic kidney disease vs post renal obstruction given BPH 05/30/2024-From Nephrology stand point, Dr. Hernandez, patient is cleared. 05/31/2024-Nephrology, ok to start Losartan. Diagnostics: 05/31: BUN 26, creatinine 1.7, GFR 47 Plan: -Continue to replete electrolytes in setting of Bumex -Continue Bumex 1 mg IVP BID -Avoid nephrotoxins -renally dose medication -follow BUN & Cr -renal diet -Nephrology consulted, Dr. Hernandez, appreciate recommendations # Electrolyte disturbance # Hypophosphatemia #Hypokalemia Plan ? Continue to replete potassium and phosphate as need # Depression ? Patient was feeling sad and depressive. Plan: ? Started sertraline 25 mg at bedtime #Cirrhosis secondary to Alcohol Use #Hyperbilirubinemia #Mild Transamitis Etiolgoy: Given shock, during ICU admission, likely secondary to hepatic ischemia and complicated by CHF exacerbation causing cardio-hepatic damage. History of Alcohol use disorder likely contributing to cirrhosis. Less likely secondary to infectious cause as hepatitis is negative vs autoimmune condition. LEONARDO and GGT pending. 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 #Hypoxemia vs Sepsis vs stroke Etiology: Likely secondary to hypoxemia given CHF exacerbation on admission requiring intubation prior to being on floors and ischemic stroke as noted on MRI brain-->thus likely multifactoral from stroke, sepsis secondary to pneumonia (resolved), meth use, hypertensive emergency, and aortic dissection, type B. DDx: Poly-substance Use disorder secondary to methamphetamine as withdraw can present as hyperisonia or insominia vs Sepsis, improved -from CAP/Aspiration Diagnostics: -Head/Neck CTA (05/22/2024): Partially visualized descending thoracic aortic aneurysmal dilation w/ extensive thrombus, CTA recommend . NO significan neck arterial stenoses. No cerebral large vessel occlusions or thrombus. -MRI Brain (05/22/2024): Multiple tiny embolic type infartcs left temporal lobe bilateral parietal lobes as above -Lipid Panetl Triglycerides 71, Cholesterol 92, LDL 49, HDL 29, -TSH 2.39 -Utox Positive THC and Meth -Chest x-ray: Mild Bibasilar Pneumonia -CT Head: negative for hemorrhage or mass effect. -LEONARDO-NEGATIVE ASCVD 3.6% 10 year cardiovascular risk, consider moderate to high intensity, currently no Atorvastatin to be added Plan: ? Continuing aspirin, Plavix and statin therapy per neurology recommendation -Heparin Drip, stopped given risk of bleeding into the Psoas muscle, possible hemorrhage -Avoid Hyperthermia and keep Euglycemic -Physical Therapy:Home with Oxygen & Home Health -Neurology Consulted, Dr. Olivares, appreciate recommendations, neurology Health Maintenance: FEN: Diet Cardiac DVT: Holding Heparin, secondary to hemorrhage into psoas muscle; Compression Device Code: Full Code Disp: Pt is currently admitted to floors for further management of acute hypoxic respiratory failure due to right heart failure, aortic dissection type B [place] and ischemic embolic stroke. - The patient's plan was discussed with attending Dr. Matute and senior residents Dr. Evette Barros MD PGY1 Internal Medicine Attending Provider Attestation/Addendum I, Luana Matute DO, attest that I was physically present for the carbajal portions of the service and evaluated the patient with the resident and I reviewed and discussed the case with the resident and agree with the resident's findings and plans of care as documented above Patient seen and evaluated this a.m. He states that he is feeling depressed since his father on the same day tomorrow from this hospital a couple years ago. He is anxious to go home. Patient is currently on 3 L nasal cannula. However, systolic blood pressure remains elevated in the 130s or higher. Will increase nifedipine to 90 mg daily tomorrow controlled. Patient remains euvolemic at this time.. Patient will work with physical therapy and anticipate discharge within the next 24 to 48 hours if condition continues to improve.
--- NOTE | 2024-05-31 15:53 | PC.NURSE ---
Consulted with Dr Gonsalves about Nifedipine 30 mg PO X1 Dose with instructions to give if SBP is >150, Blood pressure was 132/70, Dr Gonsalves recommended withholding Nifedipine dose. Instructions followed ad Nifedipine 30 mg PO X1 Dose withheld.
[2024-05-31] MEDS: PANTOPRAZOLE INJ 40 MG VIAL IVP (20:54)
[2024-05-31] MEDS: SERTRALINE HCL 25 MG TABLET PO (20:54)
[2024-06-01] VITALS (8 sets, daily range): BP systolic 118–126; BP diastolic 65–71; PULSE 62–68; RESP 16–20; TEMP 36.4–37.1; O2SAT 91–95; BMI 25.1
[2024-06-01 06:26] LABS: Basophils % (Auto) 0 % (0-2.5); Eosinophils % (Auto) 0 % (0-10); Hematocrit 33.1 % (41.0-53.0); Hemoglobin 11.4 g/dL (13.5-16.0); Immature Granulocytes % (Auto) 1 % (0-0); Immature Granulocytes Auto 0.09 Thou/mm3 (0.00-0.00); Lymphocytes # (Auto) 1.8 Thou/mm3 (1.0-4.8); Lymphocytes % (Auto) 11 % (10-50); Mean Corpuscular HGB Conc 34.4 g/dl (31.0-37.0); Mean Corpuscular Hemoglobin 31.6 pg (25.0-35.0); Mean Corpuscular Volume 92 fL (80-100); Monocytes # (Auto) 1.1 Thou/mm3 (0.0-0.8); Monocytes % (Auto) 7 % (0-12); Neutrophils # (Auto) 13.2 Thou/mm3 (1.8-7.7); Neutrophils % (Auto) 81 % (37-80); Nucleated Red Blood Cell % 0 /100 WBC (0); Platelet Count 409 Thou/mm3 (140-440); RDW Standard Deviation 47.8 fL (35.1-43.9); Red Blood Count 3.61 Miln/mm3 (4.50-5.90); White Blood Count 16.3 Thou/mm3 (3.8-10.6)
[2024-06-01 06:49] LABS: Alanine Aminotransferase 44 U/L (10-49); Albumin, Serum 3.4 gm/dL (3.5-5.0); Albumin/Globulin Ratio 1.1 (1.2-2.2); Alkaline Phosphatase 95 U/L (46-116); Anion Gap 7 (7-16); Aspartate Amino Transferase 34 U/L (0-34); BUN/Creatinine Ratio 15 Ratio (12-20); Bilirubin,Total 2.7 mg/dL (0.3-1.2); Blood Urea Nitrogen 27 mg/dL (9-23); Calcium 8.4 mg/dL (8.3-10.6); Calcium (Corrected) 8.9 mg/dL (8.5-10.1); Carbon Dioxide 23.3 mMol/L (20.0-31.0); Chloride 102 mMol/L (98-107); Creatinine (Component) 1.8 mg/dL (0.6-1.3); Estimated Creatinine Clearance 50.9 mL/min (>60); Globulin 3.2 gm/dL (2.3-3.5); Glucose 87 mg/dL (74-106); Osmolality,Calculated 268 (275-295); Phosphorous 3.7 mg/dL (2.4-5.1); Potassium 3.2 mMol/L (3.4-5.1); Sodium 132 mMol/L (136-145); Total Protein 6.6 gm/dL (5.7-8.2); eGFR 44 See Note
[2024-06-01] MEDS: carVEDILOL 12.5 MG TABLET 25 MG PO (08:36)
[2024-06-01] MEDS: NIFEdipine XL 30 MG TABCR 90 MG PO (08:37)
[2024-06-01] MEDS: SPIRONOLACTONE 25 MG TABLET PO (08:37)
[2024-06-01] MEDS: BUMETANIDE INJ 0.25 MG/ML VIAL 4 ML 1 MG IVP (08:38)
[2024-06-01] MEDS: FERROUS SULF 325 MG TABLET PO (08:38)
[2024-06-01] MEDS: ASPIRIN EC 81 MG TABEC PO (08:38)
[2024-06-01] MEDS: CLOPIDOGREL BISULFATE 75 MG TABLET PO (08:38)
[2024-06-01] MEDS: LOSARTAN POTASSIUM 25 MG TABLET PO (08:38)
--- NOTE | 2024-06-01 09:12 | ESPR_ITS ---
Documentation for date of: 06/01/24 Subjective Subjective Interval history: Mr. De is a 54-year-old male with past medical history of hypertension, CKD stage IIIb, HFpEF, methamphetamine use was admitted for acute hypoxic respiratory failure due to CHF exacerbation and hypertensive emergency. Patient was upgraded to ICU due to altered mental status due to hypotension and hypoxia. Therefore patient ended up getting intubated for airway protection and started on Levophed during ICU course. Patient was given reversal for calcium channel prasanna with calcium chloride x 3 after which patient's blood pressure showed improvement. 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 chicken raiser today 05/22/24 patient had a stroke alert called for change in mental status GCS was 12, teleneuro assessed the patient and recommended further investigations. Patient's head and neck CTA was significant for descending thoracic aorta aneurysmal dilation with extensive thrombus and radiology recommended CTA chest post IV contrast follow-up. Patient is currently on Bumex 2 mg IV twice daily for IV diuresis, Zosyn for pneumonia coverage, heparin GGT due to concern of NSTEMI, Coreg, Flomax and DuoNeb treatments. Nephrology team consulted as patient has LATASHA on CKD with BUN 54, creatinine 2.7, GFR 27 per chart review patient's baseline GFR is 44. Patient seen at bedside, patient is arousable to sternal rub, unable to answer questions, not conversational, patient's mother at bedside case discussed extensively with her. Patient is currently on IV Bumex, will be given IV contrast for CTA. Discussed with patient's mother at bedside that if patient's renal function continues to decline patient might need dialysis temporarily, patient's mother is the primary decision maker and agrees with dialysis if needed. 05/26/2024: Patient seen at the bedside in telemetry. Patient was not a candidate for transfer, his condition continues to be managed medically with aggressive BP control with goal SBP <130. Patient denies chest pain, headache, abdominal pain. UO 2.2 L. Labs showed sodium 134, potassium 3.6, BUN 39, creatinine 1.7, GFR 58.3, kidney functions improving. Will continue to monitor renal function and urine output. Continues to be on high flow, oxygen requirements are decreasing, right now on 15 L 40% FiO2. 05/27/2024 patient currently seen in telemetry. Deemed not a candidate for transfer. Resting comfortably. Still on high flow oxygen. Blood pressure 139/81, heart rate 67. Hemoglobin 11.3. Sodium 134, potassium 3.6, BUN 33, creatinine 1.6, GFR 51, calcium 8.5, phosphorus 2.5, magnesium 2.1, AST 134, ALT 95, albumin 3.4 05/28/2024 patient currently seen in telemetry. Still remains on high flow oxygen. Wants to go home. Labs, medications have been reviewed. Currently on diuretics. Blood pressure seems to be stable. Patient has Sean type B aortic dissection-medical management per vascular team. Will start weaning down on oxygen. Suggested to move out of bed to chair. Not ready for discharge yet. 05/30/2024 patient currently seen in telemetry. Patient currently seen on 4 L nasal cannula. His blood pressure is on the higher side. Waiting for the blood pressure he can be discharged. His fianc?e is at the bedside. Continue with diuretics. Creatinine stable. Out of bed to chair. 05/31/24: Patient seen and examined at bedside on [facility]. Patient currently saturating well on 3 L nasal cannula, patient's blood pressure was elevated, started on losartan 25 mg daily. Patient's fianc? at bedside. Anticipate discharge to group home facility today. 06/01/24: Patient seen at bedside on [facility] floor, sitting comfortably on the edge of the bed, saturating well on 3 L nasal cannula. Patient's blood pressure has improved 118/65, patient is cleared for discharge from nephrology standpoint. Exam Vital Signs Temp Pulse Resp BP Pulse Ox O2 Del Method O2 Flow Rate 97.6 F 65 16 126/65 91 L Nasal Cannula 3 06/01/24 08:00 06/01/24 08:56 06/01/24 08:56 06/01/24 08:38 06/01/24 08:56 06/01/24 08:00 06/01/24 08:56 FiO2 40 05/31/24 00:00 Narrative Exam Physical Exam General: Awake and in no acute distress. Comfortable sitting on edge of bed HEENT: Normocephalic, atraumatic, mucous membranes moist. Heart: Regular rate and rhythm, no murmurs. Lungs: Fine crackles at the bases, improved, currently saturating well on 3 L nasal cannula Abdomen: Soft, nondistended, nontender, positive bowel sounds. ?No guarding or rebound tenderness. Neurologic: Alert and oriented x3, no gross neurological deficit, and patient able to move all 4 extremities. Extremities: Trace edema noted. Skin: No rash or ecchymoses. Objective Labs 06/01/24 11:38 06/01/24 05:48 Labs: Laboratory Results - last 24 hr 06/01/24 05:48 WBC 16.3 H D RBC 3.61 L Hgb 11.4 L Hct 33.1 L MCV 92 MCH 31.6 MCHC 34.4 RDW Std Deviation 47.8 H Plt Count 409 D Neut % (Auto) 81 H Lymph % (Auto) 11 [place] % (Auto) 7 Eos % (Auto) 0 Baso % (Auto) 0 Neut # (Auto) 13.2 H Lymph # (Auto) 1.8 [place] # (Auto) 1.1 H Eos # (Auto) 0.0 Baso # (Auto) 0.0 Immature Gran # (Auto) 0.09 H Absolute Nucleated RBC 0.00 Immature Gran % 1 H Nucleated RBC % 0 Sodium 132 L Potassium 3.2 L D Chloride 102 Carbon Dioxide 23.3 Anion Gap 7 BUN 27 H Creatinine 1.8 H Estim Creat Clear Calc 50.9 L eGFR 44 L BUN/Creatinine Ratio 15 Glucose 87 Calculated Osmolality 268 L Calcium 8.4 Corrected Calcium 8.9 Phosphorus 3.7 Magnesium 2.0 Total Bilirubin 2.7 H AST 34 ALT 44 Alkaline Phosphatase 95 Total Protein 6.6 Albumin 3.4 L Globulin 3.2 Albumin/Globulin Ratio 1.1 L ABG Interpretation ABG results: 05/20/24 05/21/24 05/22/24 17:52 04:45 00:39 ABG pH 7.36 7.42 7.53 H D ABG pCO2 33 44 D 38 ABG pO2 375 H 107 D 43 L* D ABG HCO3 19 L 29 H 31 H ABG O2 Saturation 101 H 98 80 L ABG Base Excess -6 L 3 8 H 05/22/24 05/23/24 00:56 19:04 ABG pH 7.50 H 7.55 H ABG pCO2 40 34 ABG pO2 64 L D 53 L* ABG HCO3 31 H 30 H ABG O2 Saturation 93 89 L ABG Base Excess 7 H 8 H Quality Measures Quality Measures VTE prophylaxis (Holding heparin ) Assessment & Plan Assessment Current Active Medications: Generic Name Dose Route Start Last Admin Trade Name Freq PRN Reason Stop Dose Admin Acetaminophen 650 mg 05/20/24 01:03 05/24/24 23:11 Acetaminophen 325 Mg Tablet PO 06/19/24 01:02 650 mg Q6H PRN Administration Pain 1-3 or Fever >100.3 Aspirin 81 mg 05/26/24 09:00 06/01/24 08:38 Aspirin Ec 81 Mg Tabec PO 06/25/24 08:59 81 mg QDAY MICAH Administration Atorvastatin Calcium 40 mg 05/31/24 21:00 Atorvastatin Calcium 20 Mg Tablet PO 06/30/24 20:59 HS MICAH Bumetanide 1 mg 05/24/24 13:15 06/01/24 08:38 Bumetanide Inj 0.25 Mg/Ml Vial 4 Ml IVP 06/23/24 13:14 1 mg BID MICAH Administration Carvedilol 25 mg 05/27/24 19:00 06/01/24 08:36 Carvedilol 12.5 Mg Tablet PO 06/26/24 18:59 25 mg BIDWM MICAH Administration Clopidogrel Bisulfate 75 mg 05/26/24 09:00 06/01/24 08:38 Clopidogrel Bisulfate 75 Mg Tablet PO 06/16/24 08:59 75 mg QDAY MICAH Administration Ferrous Sulfate 325 mg 05/28/24 13:45 06/01/24 08:38 Ferrous Sulf 325 Mg Tablet PO 06/27/24 13:44 325 mg QOD MICAH Administration Losartan Potassium 25 mg 05/31/24 09:00 06/01/24 08:38 Losartan Potassium 25 Mg Tablet PO 06/30/24 08:59 25 mg QDAY MICAH Administration Nifedipine 90 mg 06/01/24 09:00 06/01/24 08:37 Nifedipine Xl 30 Mg Tabcr PO 07/01/24 08:59 90 mg QDAY MICAH Administration Ondansetron HCl 4 mg 05/20/24 01:03 Ondansetron Inj 2 Mg/Ml Inj 2 Ml IV 06/19/24 01:02 Q6H PRN NAUSEA OR VOMITING Protocol Pantoprazole Sodium 40 mg 05/20/24 21:00 05/31/24 20:54 Pantoprazole Inj 40 Mg Vial IVP 06/19/24 20:59 40 mg HS MICAH Administration Pharmacy Consult 1 each 05/21/24 08:42 Pharmacy Renal Dose Adjustment 1 Ea XX 06/20/24 08:41 PRN PRN CONSULT Polyethylene Glycol 17 gm 05/25/24 14:45 06/01/24 08:38 Polyethylene Glycol 17 Gm Packet PO 06/24/24 14:44 Not Given QDAY MICAH Sennosides 1 tab 05/23/24 07:55 05/26/24 20:31 Senna Tablet PO 06/19/24 08:59 1 tab QDAY PRN Administration constipation Protocol Sertraline HCl 25 mg 05/26/24 21:00 05/31/24 20:54 Sertraline Hcl 25 Mg Tablet PO 06/25/24 20:59 25 mg HS MICAH Administration Spironolactone 25 mg 05/29/24 09:00 06/01/24 08:37 Spironolactone 25 Mg Tablet PO 06/28/24 08:59 25 mg DAILY MICAH Administration Plan Summary: Mr. De is a 54-year-old male with past medical history of hypertension, CKD stage IIIb, HFpEF, methamphetamine use was admitted for acute hypoxic respiratory failure due to CHF exacerbation and hypertensive emergency. Nephrology team consulted for LATASHA on CKD. #LATASHA on CKD stage IIIb, improving Creatinine 1.67 with a GFR 47 LFTs mildly elevated probably from passive liver congestion Patient has good urine output, produced about 2.35 L in the last 24 hours Plan: -Currently on IV Bumex 1 mg IVP twice daily -Strict I&O's -Dose medication renally -Avoid nephrotoxic medications -Monitor renal panel closely -Patient can be discharged on p.o. Bumex. Renal hutchinson stable for discharge. # Hypertension Patient's blood pressure today 118/65. Blood pressure has improved remarkably Patient on Bumex 1 mg IVP twice daily, Coreg25 p.o. twice daily, losartan 25 p.o. daily, nifedipine 90 p.o. daily, spironolactone 25 mg p.o. 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 Hernandez. Otoniel Allen PGY1 Attending Provider Attestation/Addendum Patient seen and examined with resident physician Dr. Allen. Note reviewed, agree with findings and recommendations. Patient is going to be discharged today. Medications reviewed. Will follow-up with me in 1 to 2 weeks.
[2024-06-01 11:49] LABS: Basophils % (Auto) 0 % (0-2.5); Eosinophils # (Auto) 0.1 Thou/mm3 (0.0-0.5); Eosinophils % (Auto) 0 % (0-10); Hematocrit 32.2 % (41.0-53.0); Hemoglobin 11.1 g/dL (13.5-16.0); Immature Granulocytes % (Auto) 1 % (0-0); Immature Granulocytes Auto 0.09 Thou/mm3 (0.00-0.00); Lymphocytes # (Auto) 1.6 Thou/mm3 (1.0-4.8); Lymphocytes % (Auto) 10 % (10-50); Mean Corpuscular HGB Conc 34.5 g/dl (31.0-37.0); Mean Corpuscular Hemoglobin 31.5 pg (25.0-35.0); Mean Corpuscular Volume 92 fL (80-100); Monocytes # (Auto) 1.1 Thou/mm3 (0.0-0.8); Monocytes % (Auto) 7 % (0-12); Neutrophils # (Auto) 12.9 Thou/mm3 (1.8-7.7); Neutrophils % (Auto) 82 % (37-80); Nucleated Red Blood Cell % 0 /100 WBC (0); Platelet Count 411 Thou/mm3 (140-440); RDW Standard Deviation 47.8 fL (35.1-43.9); Red Blood Count 3.52 Miln/mm3 (4.50-5.90); White Blood Count 15.7 Thou/mm3 (3.8-10.6)
--- NOTE | 2024-06-01 13:00 | ESDS_ITS ---
Planned Discharge Date 06/01/24 DS: Providers Provider Date of admission: 05/20/24 01:03 Primary care physician: Mateo Hernandez MD Admitting Provider: Carlos Sanabria MD Attending Provider on Admission: Luana Matute DO Consults: 05/20/24 07:50 Consult to Cardiology Routine Comment: Consulting Provider: Remy Pham Instructions: new onset of CHF 05/20/24 22:14 Referral Registered Dietitian Routine Comment: Referral Wound Care Routine Comment: 05/21/24 04:20 Health Equity Referral - Knowledge Deficit Routine Comment: Positive screening for knowledge deficit needs. Health Equity Referral - Utilities Routine Comment: Positive screening for utility assistance needs. 05/21/24 16:00 Referral Speech Therapy Urgent Comment: 05/22/24 07:53 Consult to Neurology / Tele-Neurology Urgent Comment: Consulting Provider: Kev Olivares 05/22/24 09:36 Consult to Nephrology Urgent Comment: phil Consulting Provider: Mateo Hernandez 05/23/24 07:57 Referral Speech Therapy Routine Comment: positive for stroke 05/23/24 07:58 PT [Referral Physical Therapy] Routine Comment: Physician Instructions: 05/24/24 14:51 Referral - Senior Gis Analyst Urgent Instructions: type B aortic dissection Service Needed for Transfer: Vascular Surgery Attending Provider on DC: Luana Matute DO Discharging Provider: Luana Matute DO DS: Diagnosis Problem List Completed Was Problem List Reviewed/Reconciled?: Yes Hospital Course Hospital Course Hospital course: DC summary: This is a 54 year old male with PMH of HFpEF EF 60%, HTN, CKD, methamphetamine use who presents to the ER on 05/19 for shortness of breath with lower extremity edema. He was admitted for acute hypoxic respiratory failure secondary to decompensated heart failure and hypertensive emergency. He was started on IV diuretics and antihypertensive. However, he was intubated due to hypoxia saturating 80s and was unable to protect airways and hypotension related to calcium channel prasanna and beta-blockers, was briefly on pressors, then extubated the following day. A stroke alert was called due to change of mentation. Brain MRI showed multiple tiny embolic infarcts in the left temporal lobe and bilateral parietal lobe. He was not a candidate for INESSA. 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 He had a mild troponin at 0.28 that uptrended to 0.56. For this he was started on heparin drip for 48 hours. Heparin was discontinued after 48 hours today due to suspicion of an hemorrhage in the right psoas muscle seen on CT of the abdomen on 05/24 compared to 05/20.Regarding his heart failure, the patient's echo showed an EF of 50% and a severely dilated right ventricle with moderate RV systolic dysfu nction and massively dilated right atrial strain, with RSVP of 60mmHg. He was initially diuresed but held due to worsening PHIL on CKD. A CT of the chest, abdomen, and pelvis showed a [place] type B aortic dissection beginning distal to the left subclavian artery and extending distally into the upper abdomen but ending before the origin of the celiac superior mesenteric axes. The maximum transverse dimension of the descending thoracic aortia is approximately 3.9cm. Patient remained on high flow nasal cannula for few days and was weaned off to oxygen mask. He is mentating well, awake, alert, and orientated. Peripheral limbs are warm. Antihypertensives were optimized to maintain a systolic blood pressure between 100?120s and heart rate below 80 with beta-prasanna, calcium channel prasanna, aldosterone receptor antagonist and ARB's. Cardiology, nephrology, and neurology are all following along. Family was updated regarding the plan during the whole hospital course. Initially, transferred process was worked up with [facility] cardiovascular group with the on-call surgeon, Dr. Sapp who was on-call at [facility]. He recommended to repeat CT if he would have worsening signs symptoms and manage him medically only. Therefore transfer was canceled. His blood pressure was tightly controlled during hospital stay. PT evaluated the patient recommended the patient can walk independently and only will need front wheeled walker and outpatient O2 therapy for home oxygen. Patient was seen and examined at the bedside today. He was medically stable to be discharged on current antihypertensive therapy with Coreg 25 twice daily, Aldactone 12.5 once daily, nifedipine XL 90 mg once daily, losartan 25 mg once daily. Spray Painter recommended that patient will need CBC and CMP as outpatient within a week to evaluate his kidney functions as he is on medications which can be nephrotoxic. Patient family was updated and recommended that patient will need close follow-up at her [facility] clinic where he can get referral to specialist including neurologist, whanau support worker, industrial security analyst and vascular surgeon. Patient was discharged to home. #Problem list: #[place] Type B Aortic Dissection, stable #Acute hypoxic respiratory Failure, resolved #Sepsis, secondary to pneumonia with end organ failure, Resolved. #Community Acquired Pneumonia, resolved. #Acute CHF Exacerbation, resolved #Cor Pulmonale #Pulmonary HTN #NSTEMI II, resolved #Acute Metabolic Encepholopathy, Resolved. 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 #Methamphetamine abuse #PHIL on CKD III, improved #Electrolyte disturbance #Hypophosphatemia #Hypokalemia #Depression #Cirrhosis secondary to Alcohol Use #Hyperbilirubinemia #Mild Transamitis #Normocytic Anemia #BPH Discharge instructions: Continue taking aspirin 81 mg once daily and Plavix 75 mg once daily for stroke and follow-up with neurologist as outpatient within a week Take Bumex 1 mg twice daily and track your weight and in case of gain of 2-3 pounds notify your industrial security analyst and do fluid restriction 1500 cc every day Take Coreg 25 mg twice daily, losartan 25 mg once daily, nifedipine XL 90 mg once daily and spironolactone 12.5 once daily Monitor blood pressure at home 3 times a day and keep the blood pressure goal for systolic blood pressure in 120 and diastolic blood pressure 80 mmHg as there was a aortic dissection Sean type B seen on CTA imaging Take MiraLAX as needed for constipation Take sertraline 25 mg for depression Take tamsulosin 0.4 mg at bedtime Follow-up with PCP as outpatient within a week and get CBC and RFT's as outpatient within a week to follow-up with kidney functions as you are on diuretics Follow-up with your industrial security analyst as outpatient within a week to monitor your diuretic therapy or follow-up with our industrial security analyst, and his outpatient cardiology clinic by scheduling an appointment after getting a PCP referral at [address] [place] [address], [address], [place], [place] [address]fpagg: [phone].? Follow-up with neurologist, Dr Olivares as outpatient within a week Follow-up with whanau support worker, Dr Hernandez as outpatient within a week Follow-up with vascular surgeon, Dr. Hauser as outpatient within 2 weeks You can follow-up in our [facility] by scheduling an appointment for new primary care physician and getting referrals if would like to or at least follow-up with your own PCP at [facility]. Our [facility] clinic is at [address] [place] [address] DARRYL Moore [id number]:?Monday - Monday, 8 AM - 4:30 PM (Closed 12 PM - 1 PM) Contact Us:? -- Patient was seen and discussed with attending physician, Dr. Juju Alas MD, PGY 2 Time Spent with Patient Time attestation: Total time spent providing and/or coordinating discharge services: 55 min Exam Vital Signs Temp Pulse Resp BP Pulse Ox O2 Del Method O2 Flow Rate 97.6 F 65 16 126/65 91 L Nasal Cannula 3 06/01/24 08:00 06/01/24 08:56 06/01/24 08:56 06/01/24 08:38 06/01/24 08:56 06/01/24 08:00 06/01/24 08:56 FiO2 40 05/31/24 00:00 Narrative Exam General: Awake and in no acute distress. Comfortable sitting on edge of bed HEENT: Normocephalic, atraumatic, mucous membranes moist. Heart: Regular rate and rhythm, no murmurs. Lungs: Fine crackles at the bases, improved, currently saturating well on 3 L nasal cannula Abdomen: Soft, nondistended, nontender, positive bowel sounds. ?No guarding or rebound tenderness. Neurologic: Alert and oriented x3, no gross neurological deficit, and patient able to move all 4 extremities. Extremities: Trace edema noted. Skin: No rash or ecchymoses. Discharge Plan Plan Patient Disposition: HOME (Self Care) Patient condition on transfer: Stable Care Plan Goals: Continue taking aspirin 81 mg once daily and Plavix 75 mg once daily for stroke and follow-up with neurologist as outpatient within a week Take Bumex 1 mg twice daily and track your weight and in case of gain of 2-3 pounds notify your industrial security analyst and do fluid restriction 1500 cc every day Take Coreg 25 mg twice daily, losartan 25 mg once daily, nifedipine XL 90 mg o nce daily and spironolactone 12.5 once daily Monitor blood pressure at home 3 times a day and keep the blood pressure goal for systolic blood pressure in 120 and diastolic blood pressure 80 mmHg as there was a aortic dissection [place] type B seen on CTA imaging Take MiraLAX as needed for constipation Take sertraline 25 mg for depression Take tamsulosin 0.4 mg at bedtime Follow-up with PCP as outpatient within a week and get CBC and RFT's as outpatient within a week to follow-up with kidney functions as you are on diuretics Follow-up with your industrial security analyst as outpatient within a week to monitor your diuretic therapy or follow-up with our industrial security analyst, and his outpatient cardiology clinic by scheduling an appointment after getting a PCP referral at [address] [place] [address], [address], [place], [place] [address]zkxnw: [phone].? Follow-up with neurologist, Dr Olivares as outpatient within a week Follow-up with whanau support worker, Dr Hernandez as outpatient within a week Follow-up with vascular surgeon, Dr. Hauser as outpatient within 2 weeks You can follow-up in our [facility] clinic by scheduling an appointment for new primary care physician and getting referrals if would like to or at least follow-up with your own PCP at [facility]. Our academic [facility] clinic is at [address] [place], [place] [address], [place] [address]wtjgq:?Monday - Monday, 8 AM - 4:30 PM (Closed 12 PM - 1 PM ) Contact Us:? Prescriptions/Referrals Prescriptions/Med Rec: New aspirin 81 mg Tablet,Delayed Release (Dr/Ec) 81 mg PO QDAY 30 Days Qty: 30 0RF carvedilol 25 mg tablet 25 mg PO BIDWM 30 Days Qty: 30 0RF clopidogrel 75 mg Tablet 75 mg PO QDAY 30 Days Qty: 30 0RF ferrous sulfate 325 mg (65 mg iron) Tablet,Delayed Release (Dr/Ec) 325 mg PO QOD Qty: 30 0RF sertraline 25 mg Tablet 25 mg PO HS 30 Days Qty: 30 0RF losartan 25 mg Tablet 25 mg PO QDAY 30 Days Qty: 30 0RF atorvastatin 20 mg tablet 20 mg PO QPM Qty: 30 0RF nifedipine 90 mg tablet extended release 90 mg PO QDAY 30 Days Qty: 30 0RF polyethylene glycol 3350 [HealthyLax] 17 gram Powder In Packet 17 g PO QDAY PRN (Reason: constipation) 30 Days Qty: 30 0RF bumetanide 1 mg tablet 1 mg PO BID Qty: 30 0RF spironolactone 25 mg tablet 12.5 mg PO QDAY Qty: 30 0RF Continued tamsulosin 0.4 mg capsule 0.4 mg PO QHS Qty: 30 3RF Discontinued labetalol 100 mg tablet 100 mg PO BID 30 Days Qty: 60 3RF hydralazine 50 mg tablet 100 mg PO BID Qty: 120 3RF bumetanide 2 mg tablet 2 mg PO QDAY gabapentin 300 mg capsule 300 mg PO QHS Qty: 30 3RF Referrals: Remy Pham MD [Physician] - Kev Olivares MD [Physician] - Mateo Hernandez MD [Primary Care Provider] - Patient/Caregiver Discharge Instructions Education Materials: Controlling High Blood Pressure, Diabetes and Heart Disease, Heart Failure: Tracking Your Weight, Coping with Heart Failure, Heart Failure Making Changes to ..., Heart Failure Dc, Blood Pressure Check Steps, Heart Failure: Know Your Baselines, Heart Failure and Physical Activity Print Language: [place] Stand Alone Forms: Madonna Award Info., Patient Portal Info Letter Discharge Order Discharge Orders: Discharge (Routine); Ordered 06/01/24 Ordered By: Julien Alas Quality Discharge Quality Measures VTE prophylaxis (Heparin subcut)
[2024-06-01] MEDS: POTASSIUM CHLORIDE 20 mEq TABCR 40 MEQ PO (13:27)
== END 2024-06-01 14:34 | disposition home or self-care (01) | DRG 720 ==
LOC: SERX 23:01 → SERHOLD 05-20 01:30 → S2SX 05-20 21:13 → S2NX 05-22 07:04 → S3NX 05-31 06:19
PROVIDERS: Internal Medicine Cardiovascular Disease; Registered Nurse General Practice; Student in an Organized Health Care Education/Training Program; Admitting Provider Internal Medicine; Emergency Provider Emergency Medicine; PCP Internal Medicine; Visit Provider Internal Medicine
DX: A41.9 Sepsis, unspecified organism (principal); I13.0 Hypertensive heart and chronic kidney disease with heart failure and stage 1 through stage 4 chronic kidney disease, or unspecified chronic kidney disease; F15.10 Other stimulant abuse, uncomplicated; J96.01 Acute respiratory failure with hypoxia; F17.210 Nicotine dependence, cigarettes, uncomplicated; I50.33 Acute on chronic diastolic (congestive) heart failure; R74.01 Elevation of levels of liver transaminase levels; Z91.148 Patient's other noncompliance with medication regimen for other reason; N18.31 Chronic kidney disease, stage 3a; R79.1 Abnormal coagulation profile; I95.9 Hypotension, unspecified; I21.A1 Myocardial infarction type 2; N40.0 Benign prostatic hyperplasia without lower urinary tract symptoms; F12.10 Cannabis abuse, uncomplicated; R57.8 Other shock; G93.1 Anoxic brain damage, not elsewhere classified; E83.51 Hypocalcemia; E83.39 Other disorders of phosphorus metabolism; E87.1 Hypo-osmolality and hyponatremia; T88.4XXA Failed or difficult intubation, initial encounter; I27.81 Cor pulmonale (chronic); I63.40 Cerebral infarction due to embolism of unspecified cerebral artery; E87.6 Hypokalemia; F32.A Depression, unspecified; K70.31 Alcoholic cirrhosis of liver with ascites; D63.1 Anemia in chronic kidney disease; I16.1 Hypertensive emergency; K76.1 Chronic passive congestion of liver; E87.20 Acidosis, unspecified; N17.9 Acute kidney failure, unspecified; I07.1 Rheumatic tricuspid insufficiency; I74.11 Embolism and thrombosis of thoracic aorta; G92.8 Other toxic encephalopathy; I71.23 Aneurysm of the descending thoracic aorta, without rupture; I71.019 Dissection of thoracic aorta, unspecified; J69.0 Pneumonitis due to inhalation of food and vomit; I27.21 Secondary pulmonary arterial hypertension; I50.82 Biventricular heart failure; J98.4 Other disorders of lung; J18.9 Pneumonia, unspecified organism
CPT/HCPCS: 36415; 36600; 70450; 70496; 70498; 70544; 71045; 71275; 74174; 74176; 76705; 80053; 80061; 80069; 80074; 80202; 80307; 80320; 81001; 82140; 82550; 82803; 82977; 83540; 83550; 83605; 83615; 83735; 83880; 84100; 84132; 84443; 84484; 85025; 85379; 85610; 85730; 86038; 86331; 86635; 86703; 86780; 86850; 86900; 86901; 87040; 87081; 87205; 92526; 92610; 93005; 93225; 93306; 93970; 94002; 94003; 94640; 94664; 96374; 96375; 97162; 99285; A4649; A9270; J0295; J0330; J0360; J1643; J1644; J1940; J2060; J2470; J2543; J2704; J3010; J3370; J3372; J3475; J3480; J3490; J7050; J7120; Q9967; G0480; J1920

== ENCOUNTER 2024-07-02 13:34 | Outpatient (AMB) | payer MEDICAID, SELFPAY ==
[2024-07-02 13:43] VITALS: BP 142/70; PULSE 60; RESP 18; O2SAT 91; BMI 23.8
--- NOTE | 2024-07-02 13:43 | ACNOTE_ITS ---
Vital Signs 07/02/24 13:43 Height 1.83 m Height Method Stated Weight 79.492 kg Weight Measurement Method Standing Scale BMI 23.8 BP 142/70 H Blood Pressure Source Automatic Cuff Blood Pressure Location Left Upper Arm Position Sitting Respiration 18 Pulse 60 Pulse Source Monitor Pulse Oximetry (%) 91 L Oxygen Delivery Method Nasal Cannula Oxygen Flow Rate 4 Allergies/Meds Allergies & Medications Allergies No Known Allergies Allergy (Verified 12/05/23 10:13) MA Intake Visit Data Collection New Patient or Established: Established Patient (seen at [facility] within 3 years) Seen by Clinical Staff ONLY (RN/MA): No Reason for Visit:: HOSPITAL FOLLOW UP Pain Present Currently: No PCP or OBGYN visit in last 3 months: Yes Smoking Status Smoking Status: Former smoker Immunization / Flu Flu Vaccine in the Last 12 Months: Yes Flu Vaccine Exclusion Criteria: Already Received Past Medical History Past Medical History CARDIAC: Positive Hypertension; Negative Cardiac Disorders or Congestive Heart Failure RESPIRATORY: Negative Chronic Obstructive Pulmonary Disease (COPD) or Asthma GENITOURINARY: Negative Renal Disease ENDOCRINE: Negative Diabetes Mellitus Type 1 or Diabetes Mellitus Type 2 HEMATOLOGIC: Negative Sickle Cell Disease Family History FAMILY HISTORY: Positive Family Cardiac Disorders Social History SMOKING STATUS: Smoking status: Former smoker PACK YEARS: Pack-Years: 15 ALCOHOL: Alcohol Intake: Former ALCOHOL FREQUENCY: Alcohol Intake Frequency: 0-2 Drinks per Day HOUSING: Housing: House LIVES WITH: Lives With: Children and Significant Other Patient Portal Questionaires Social History Living Situation History Housing: House Housing Other:: Pt from home Tobacco History Smoking Status: Former smoker Pack-Years: 15 Alcohol History Alcohol Intake: Former Alcohol Intake Frequency: 0-2 Drinks per Day Review of Systems Report any current symptoms Only answer those that you have currently: Past Medical History Past Medical History Have you ever been diagnosed with any of the following: Cardiology Problems Congestive Heart Failure: No Hypertension: Yes Respiratory Problems Chronic Obstructive Pulmonary Disease (COPD): No Asthma: No Genital/Urinary Problems Renal Disease: No Endocrine Problems Diabetes Mellitus Type 1: No Diabetes Mellitus Type 2: No Blood Problems Sickle Cell Disease: No History of Present Illness HPI Narrative Hospital course -This is a 54 year old male with PMH of HFpEF EF 60%, HTN, CKD, methamphetamine use who presents to the ER on 05/19 for shortness of breath with lower extremity edema. He was admitted for acute hypoxic respiratory failure secondary to decompensated heart failure and hypertensive emergency. He was started on IV diuretics and antihypertensive. However, he was intubated due to hypoxia saturating 80s and was unable to protect airways and hypotension related to calcium channel prasanna and beta-blockers, was briefly on pressors, then extubated the following day. A stroke alert was called due to change of mentation. Brain MRI showed multiple tiny embolic infarcts in the left temporal lobe and bilateral parietal lobe. He was not a candidate for INESSA. 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 He had a mild troponin at 0.28 that uptrended to 0.56. For this he was started on heparin drip for 48 hours. Heparin was discontinued after 48 hours today due to suspicion of an hemorrhage in the right psoas muscle seen on CT of the abdomen on 05/24 compared to 05/20.Regarding his heart failure, the patient's echo showed an EF of 50% and a severely dilated right ventricle with moderate RV systolic dysfunction and massively dilated right atrial strain, with RSVP of 60mmHg. He was initially diuresed but held due to worsening LATASHA on CKD. A CT of the chest, abdomen, and pelvis showed a Sean type B aortic dissection beginning distal to the left subclavian artery and extending distally into the upper abdomen but ending before the origin of the celiac superior mesenteric axes. The maximum transverse dimension of the descending thoracic aortia is approximately 3.9cm. Patient remained on high flow nasal cannula for few days and was weaned off to oxygen mask. He is mentating well, awake, alert, and orientated. Peripheral limbs are warm. Antihypertensives were optimized to maintain a systolic blood pressure between 100?120s and heart rate below 80 with beta-prasanna, calcium channel prasanna, aldosterone receptor antagonist and ARB's. Cardiology, nephrology, and neurology are all following along. Family was updated regarding the plan during the whole hospital course. Initially, transferred process was [facility] with the on-call surgeon, Dr. Sapp who was on-call at [facility]. He recommended to repeat CT if he would have worsening signs symptoms and manage him medically only. Therefore transfer was canceled. His blood pressure was tightly controlled during hospital stay. PT evaluated the patient recommended the patient can walk independently and only will need front wheeled walker and outpatient O2 therapy for home oxygen. Patient was discharged on Coreg 25 twice daily, Aldactone 12.5 once daily, nifedipine XL 90 mg once daily, losartan 25 mg once daily. 07/02/2024: Patient was seen and examined in the clinic today. He was accompanied with his . Patient was on 2 L oxygen mask and saturating above 90%. He reported that he has been feeling much better since he got discharged and lost couple of pounds from 240 pounds to 175 pounds. Patient denied any cough, chest pain, abdominal discomfort or any other complaint. He does complains of shortness of breath on walking few blocks and has been feeling weak. His blood pressure control has been good per patient's at home. Patient did see material reclaimer, Dr Hernandez as outpatient who ordered blood labs for him which he is still due to get resulted. Patient reported that he needs to have outpatient referral for neurologist, Dr Olivares for follow-up and vascular surgeon Dr. Hauser for aortic dissection. Patient reported that he is currently taking Bumex 1 mg twice daily, nifedipine 90 mg once daily, sertraline 25 mg at bedtime, Coreg 25 mg twice daily, aspirin 81 mg once daily and Plavix 75 mg and losartan 25 mg half tablet daily. Follow-up in 3 weeks. Review of Systems Review of Systems Systems Reviewed: All systems reviewed, normal except as documented Objective/Exam Narrative Physical exam: GENERAL APPEARANCE: AxOx4, generally well-appearing male, no acute distress. He is saturating 90% 2 L NC. HEENT: NC, AT. MMM. EOMI, clear conjunctiva, oropharynx clear. NECK: Supple without lymphadenopathy. No stiffness or restricted ROM. HEART: Regular rate and regular rhythm, normal S1/S2, no m/r/g LUNGS: Bilateral decreased breath sounds on bases. No crackles or wheezes are heard. ABDOMEN: Soft, nontender, nondistended with good bowel sounds heard. BACK: No CVAT, no obvious deformity. EXTREMITIES: Without cyanosis, clubbing or edema. NEUROLOGICAL: Grossly nonfocal. Alert and oriented, moving all 4 extremities. CN not formally tested but appear grossly intact. Observed to ambulate with normal gait. Skin: Warm and dry without any rash. Assessment & Plan Diagnosis / Problem List (1) (HFpEF) heart failure with preserved ejection fraction: Status: Acute Qualifiers: Heart failure chronicity: unspecified Qualified Code(s): I50.30 - Unspecified diastolic (congestive) heart failure Assessment & Plan: #HFpEF EF 55% with severe pulmonary hypertension -During hospital stay patient was found to have heart failure with preserved ejection fraction 55% and severe pulmonary hypertension. Plan: -Patient is following with Dr. Stubbs in [place] -Continue Bumex 1 mg twice daily and Coreg 25 twice daily -Continue fluid restriction up to 1500 cc -Continue using oxygen as needed and goal of oxygen saturation around 88-90% -Require monitoring of electrolytes and potassium with kidney functions (2) Hypertension: Status: Chronic Qualifiers: Hypertension type: unspecified Qualified Code(s): I10 - Essential (primary) hypertension Assessment & Plan: #Hypertension #History of hypertensive emergency -Patient came with hypertensive emergency during hospital stay. Blood pressure has been stable Plan: -Continue losartan 25 mg half a tablet daily, nifedipine 90 mg once daily, Coreg 25 mg twice daily - Continuous blood pressure monitoring at home -Blood pressure stable at home -Close follow-up with shake cutter, Dr. Stubbs as outpatient due to [place] type B aortic dissection as well (3) Embolic infarction: Status: Chronic Assessment & Plan: #Multiple embolic infarct per MRI #left temporal lobe bilateral parietal lobes -Patient was found to have MRI suggestive of multiple tiny embolic type infarcts left temporal lobe bilateral parietal lobes Plan: - Continue aspirin Plavix and statin therapy -Follow-up with neurologist, Dr. Olivares as outpatient, referral was given -Patient has no residual deficits -Follow-up in 3 weeks -- Patient was discussed with attending physician, Dr.Watanakunakorn Dr. Evette MD, PGY 2 Orders: Referrals General surgery I71.019 - Dissection of thoracic aorta, unspecified Neurology I74.9 - Embolism and thrombosis of unspecified artery Additional Assessment Internal Medicine Attending Note: Case discussed with and agree with note and management plan of Resident Physician as per Resident's Note above. Issues of concern for present visit are as follows: Follow-up visit from extend ed hospital stay in May 2024. Admitted for acute hypoxic respiratory failure secondary to decompensated heart failure and hypertensive emergency. Was intubated due to hypoxia and unable to protect his airway and hypotension related to calcium channel prasanna and beta-blockers. Was briefly on pressors, was extubated. Stroke alert called for change in mentation. Brain MRI showed multiple tiny embolic infarcts left temporal lobe and bilateral parietal lobes. Head and neck CTA showed a thoracic aortic aneurysm with extensive thrombus. Had positive troponin that up trended to 0.56. Was on heparin drip for 48 hours but was discontinued due to suspicion of hemorrhage in the right psoas muscle segment CT of the abdomen. Echocardiogram showed ejection fraction of 50% and severely dilated right ventricle with moderate right ventricular systolic dysfunction and massively dilated right atrial strain with RSVP of [address] of the chest abdomen pelvis showed a [place] type B aortic dissection beginning distal to left subclavian artery and extending distally into the upper abdomen but ending before the origin of the celiac superior mesenteric axis. Maximum transverse dimension of the ascending thoracic aorta is approximately 3.9 cm. Antihypertensives optimized to keep systolic blood pressure between 100-120 and heart rate below 80. Plan was initially to transfer to higher level of tertiary care, but cardiothoracic surgery recommended repeat CT if he had worsening signs of symptoms and manage him medically only. He was discharged home on carvedilol, spironolactone, nifedipine, and losartan. Today patient is on 2 L oxygen per mask, saturating from 90%. Weight is down to 175 pounds. Notes dyspnea on exertion and easy fatigue. Blood pressure control has been good. Has followed up with nephrology, labs ordered, awaiting results. Needs outpatient referral to neurology which we will do today. Also needs referral to vascular surgeon for aortic dissection. Medication regimen has been changed with discontinuation of spironolactone. Patient now on Bumex 1 mg twice daily, nifedipine 90 mg daily, sertraline 25 mg nightly, carvedilol 25 mg twice daily, aspirin 81 mg daily Plavix 75 mg daily, losartan 12.5 mg daily. Referral put through for vascular surgery and neurology. Follow-up in 2 to 3 weeks. Mello Castañeda MD Physician Billing Established Patient Established Patient: E/M Level 3-CPT 01764 Office Procedures [facility] Level of Care Nursing/Assessment Patient Status: Established Patient Nursing Assessment/Reassessment: BP Monitoring, Medication Reconciliation, Update PMH in EMR and Vital Signs Coordination of Care: Complex Care and Chronic Disease 1-5, Consent,records obtained, informed consent and Lab and Imaging orders Established Patient Charge Established Patient Point Assignment: 90 Established Patient Point Charge: Level 3 (80-115)
== END 2024-07-02 15:16 | disposition home or self-care (01) ==
LOC: HODAHC 13:34
PROVIDERS: PCP Student in an Organized Health Care Education/Training Program; Referring Provider Student in an Organized Health Care Education/Training Program; Supervising Provider Internal Medicine; Visit Provider Student in an Organized Health Care Education/Training Program
DX: I71.019 Dissection of thoracic aorta, unspecified (principal); I74.9 Embolism and thrombosis of unspecified artery; I13.0 Hypertensive heart and chronic kidney disease with heart failure and stage 1 through stage 4 chronic kidney disease, or unspecified chronic kidney disease; I50.30 Unspecified diastolic (congestive) heart failure; N18.9 Chronic kidney disease, unspecified
CPT/HCPCS: 99213; G0463

== ENCOUNTER 2024-07-16 12:14 | Inpatient (IN) | payer MEDICAID, SELFPAY ==
--- NOTE | 2024-07-16 12:26 | XR_ITS ---
Examination: AP chest single view Technique one AP portable semiupright chest single view Exam date and time: July 16, 2024 1249 hours Comparison May 22, 2014 INDICATIONS: Shortness of breath beginning 2 months ago. FINDINGS: Significant opacity left base most consistent with pneumonia Mild prominence left ventricle No pulmonary edema IMPRESSION: Significant left base pneumonia
--- NOTE | 2024-07-16 12:27 | EKG_ITS ---
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1970 Requested By: Papo Booth (GEORGINA) Order Number: [id number] Reading MD: Papo Booth (LINING CEMENTER) Measurements Intervals Plain Rate: 58 P: 59 ID: [id number] QRS: 249 QRSD: 132 T: 46 QT: 474 QTc: 468 Interpretive Statements SINUS BRADYCARDIA LEFT ATRIAL ENLARGEMENT [-0.15mV P-WAVE IN V1/V2] RIGHT AXIS DEVIATION [QRS AXIS > 100] RIGHT BUNDLE BRANCH BLOCK [120+ ms QRS DURATION, UPRIGHT V1, 40+ ms S IN I/aVL/V4/V5/V6] Compared to ECG 05/21/2024 08:30:41 Right-axis deviation now present Right bundle-branch block now present Sinus tachycardia no longer present Incomplete right bundle-branch block no longer present Right ventricular hypertrophy no longer present ST (T wave) deviation no longer present /store/S0/[id number].pdf
[2024-07-16 12:32] VITALS: BP 118/64; PULSE 60; RESP 22; TEMP 36.4; O2SAT 93
[2024-07-16 12:38] VITALS: BMI 23.0
--- NOTE | 2024-07-16 13:22 | EDNOTE_ITS ---
<Statement entered by Ariana Hou MD - 07/17/24 17:33> As co-signing physician, I was present and available for consult prn. I concur with the plan and care as documented by the midlevel provider. ED Recheck Abnl Lab Rx-RME/HPI General Chief Complaint: Recheck/Abnormal Lab/Rx Stated Complaint: SENT BY PCP FOR ABNORMAL RENAL PNL Time Seen by Provider: 07/16/24 12:54 Arrival date/time: 07/16/24 12:14 RME / HPI RME / HPI narrative: Patient is a 54-year-old male with past medical history of HFpEF (50% 05/2024) on 3L home O2, hypertension, CKD, history of methamphetamine use who was referred to the ED today 07/16/[address] Stubbs and Librarian Head Dr. Hernandez due to abnormal labs, creatinine of 5.03 and GFR of 13 on renal panel, [facility] On review of the patient's previous labs, prior baseline creatinine appears to range 1.7-2.3 with eGFR of 30-45 average. He has had decreased urinary output with darker urine and about 3-4 episodes of urinating daily. Patient endorses complaint of weakness and fatigue with poor appetite for the past 1 week along with dry cough. Patient was started on amoxicillin yesterday by Dr. Hernandez. Patient has been taking Bumex 2 mg daily as per his Paper Slitter. Patient denies any chest pain, shortness of breath, fever, chills, sweats, nausea, vomiting, abdominal pain, hematuria, or any dysuria. He reports 1 episode of loose bowel movements daily in the last 3 days but no blood or mucous. Patient is on 3L home O2 as his baseline oxygen status. Denies any increased orthopnea. MD complaint: abnormal lab Onset/Timin Initial visit (ago): day(s) Returns today for: called because of abnormal lab/test Description of abnormal result: Creatinine 5.03 GFR 13 Context: called for abnormal lab result Related Data Previous Rx's ?Medication ?Instructions ?Recorded tamsulosin 0.4 mg capsule 0.4 mg PO QHS #30 caps 11/02 atorvastatin 20 mg tablet 20 mg PO QPM #30 tabs ferrous sulfate 325 mg (65 mg 325 mg PO QOD #30 tabs 1 08/01/23 iron) tablet,delayed release bumetanide 1 mg tablet 1 mg PO BID #30 tabs 4 spironolactone 25 mg tablet 12.5 mg (1/2 x 25 mg) PO Q DAY #30 06/01/24 tabs Allergies Allergy/AdvReac Type Severity Reaction Status Date / Time No Known Allergies Allergy Verified 07/16/24 12:16 Review of Systems Review of Systems Systems Reviewed: All systems reviewed, normal except as documented Past Medical History Past Medical History Comments PMH COMMENT: Past Medical History: HFpEF (50% 05/2024), hypertension, CKD, history of methamphetamine use Family History: No family history of CKD, positive family history of cardiac disorders, father with hypertension Surgical History: No previous surgeries Social History: Former smoker quit in 05/2024 about 20 pack year history, former alcohol use quit 15 years ago, former marijuana and methamphetamine use quit in 05/2024, denying current drug use Current Medications: Aspirin 81 mg qday, clopidogrel 75 mg qday, atorvastatin 20 mg qday, carvedilol 25 mg BIDWM, losartan 25 mg qday, nifedipine 90 mg qday, bumex 1 mg BID, spironolactone 12.5 mg qday, tamsulosin 0.4 mg qday, ferrous sulfate 325 mg qday, sertraline 25 mg qday (Source: Patient discharge 05/2024) Allergies: No known drug allergies ED Exam Narrative Physical exam: Physical Exam General: Awake and in no acute distress. Chronically ill appearing male, sleepy however able to answer questions appropriately. HEENT: Normocephalic, atraumatic, mucous membranes moist. Patient on 3L NC. No JVD noted. Heart: Regular rate and rhythm, no murmurs. Lungs: Clear to auscultation with no wheezing or crackles. Abdomen: Soft, nondistended, nontender, positive bowel sounds. ?No guarding or rebound tenderness. Neurologic: Alert and oriented x3, no gross neurological deficit, and patient able to move all 4 extremities. Extremities: No edema. Skin: No rash or ecchymoses. Course Quality Measures none Orders Category Date Time Status Admit to Inpatient Status Routine Admission 07/16/24 15:48 Active Patient Condition Routine Admission 07/16/24 15:48 Ordered Bedside COVID-19 Antigen Test NOW Care 07/16/24 13:17 Active Bedside Influenza A&B Antigen Test NOW Care 07/16/24 13:18 Completed COVID-19 Screening Questionnaire NOW Care 07/16/24 14:48 Active Continuous Pulse Oximetry NOW Care 07/16/24 15:48 Active Decision to Admit X1 Care 07/16/24 14:48 Completed EKG (ED ONLY) *Do not use* NOW Care 07/16/24 12:27 Completed Insert IV NOW Care 07/16/24 13:22 Active Notify provider NEEDED Care 07/16/24 15:48 Active Strict Intake and Output Routine Care 07/16/24 15:49 Ordered Consult to Nephrology Stat Cons 07/16/24 14:15 Ordered Diet Renal Diet 07/16/24 Dinner Active EKG (ED Only) Stat Exams 07/16/24 12:27 Draft XR chest 1V portable Stat Exams 07/16/24 12:26 Completed B-Type Natriuretic Peptide Stat Lab 07/16/24 13:13 Completed Blood Culture (Lab) Stat Lab 07/16/24 13:13 Received CBC AM DRAW Lab 07/17/24 05:00 Ordered CBC AM DRAW Lab 07/18/24 05:00 Ordered CBC AM DRAW Lab 07/19/24 05:00 Ordered CBC Stat Lab 07/16/24 13:13 Completed Comprehensive Metabolic Panel AM DRAW Lab 07/17/24 05:00 Ordered Comprehensive Metabolic Panel AM DRAW Lab 07/18/24 05:00 Ordered Comprehensive Metabolic Panel AM DRAW Lab 07/19/24 05:00 Ordered Comprehensive Metabolic Panel Stat Lab 07/16/24 13:13 Completed Drug Screen,Urine Stat Lab 07/16/24 12:27 Ordered Lactic Acid [Lactate (Lactic Acid)] Stat Lab 07/16/24 13:13 Completed Lipid Panel AM DRAW Lab 07/17/24 05:00 Ordered Magnesium AM DRAW Lab 07/17/24 05:00 Ordered Magnesium AM DRAW Lab 07/18/24 05:00 Ordered Magnesium AM DRAW Lab 07/19/24 05:00 Ordered Magnesium Stat Lab 07/16/24 13:13 Completed Partial Thromboplastin Time AM DRAW Lab 07/17/24 05:00 Ordered Partial Thromboplastin Time Stat Lab 07/16/24 13:13 Completed Path Review Blood Smear Stat Lab 07/16/24 13:13 Completed Phosphorous AM DRAW Lab 07/17/24 05:00 Ordered Phosphorous AM DRAW Lab 07/18/24 05:00 Ordered Phosphorous AM DRAW Lab 07/19/24 05:00 Ordered Phosphorous Stat Lab 07/16/24 13:13 Completed Prothrombin Time with INR AM DRAW Lab 07/17/24 05:00 Ordered Prothrombin Time with INR Stat Lab 07/16/24 13:13 Completed Thyroid Stimulating Hormone AM DRAW Lab 07/17/24 05:00 Ordered Troponin I Stat Lab 07/16/24 13:13 Completed Urinalysis Stat Lab 07/16/24 12:27 Ordered Heparin Inj Med 07/16/24 16:00 Active 5,000 unit SC Q12H Ondansetron Inj [Zofran Inj] Med 07/16/24 15:48 Active 4 mg IV Q6H PRN Sodium Chloride 0.9% 1000 ml [Ns] 1,000 ml Med 07/16/24 14:20 Discontinued IV 100 mls/hr Sodium Chloride 0.9% 1000 ml [Ns] 1,000 ml Med 07/16/24 16:00 Active IV 75 mls/hr Sodium Chloride 0.9% 500 ml [Ns] 500 ml Med 07/16/24 14:20 Discontinued IV 999 mls/hr Code Status Routine Oth 07/16/24 15:48 Ordered Vital Signs Vital signs: Vital Signs Temperature 97.6 F 07/16/24 12:32 Pulse Rate 60 07/16/24 12:32 Respiratory Rate 22 H 07/16/24 12:32 Blood Pressure 118/64 07/16/24 12:32 Pulse Oximetry (%) 93 L 07/16/24 12:32 Oxygen Delivery Method Nasal Cannula 07/16/24 12:32 Oxygen Flow Rate 3 07/16/24 12:32 Procedures -ED EKG Interpretation #1: Date of EK07/16/24 Time of EK:36 Rate: 58 Interpretation: Interpreted by me EKG Impression: No acute ST-T changes Additional EKG comment: Sinus bradycardia Recheck / Abnormal Lab / Rx MDM Narrative MDM Narrative:: Patient referred by Librarian Head Dr. Hernandez for abnormal labs with elevated creatinine significantly higher than his baseline. Patient himself is complaining of generalized weakness and fatigue over the last 1 week. Here in the ED his creatinine was found to be worsened at 6.2, BUN is 132, GFR 10. Patient may be having prerenal LATASHA secondary to overdiuresis as he has been on Bumex 2 mg daily for his heart failure, discussed the patient with Dr. Hernandez who recommended gentle IV fluid hydration with bolus followed by maintenance for a total of 1.5 L to start and assess response. Conversely, the patient may be having cardiorenal syndrome, in which case patient may need dialysis. Will need to trend his renal panel first and monitor closely for any electrolyte changes. Patient also has a cough which developed the last few days, labs show a WBC 19.2 and CXR is showing a left base haziness which might be suggestive of a pneumonia. Lactic acid level was normal. Procal was not ordered as it would not be informative in the setting of LATASHA/CKD. Still pending UA, urine culture, and Utox. Patient data External records reviewed:: [facility] previous records Clinical information provided by:: patient Social determinants that could affect healthcare access:: none Patient has the following chronic illnesses:: As above How is presenting disease/condition affected by chronic disease/condition?: exacerbated by Evaluation data The following diagnostics were reviewed and interpreted by me:: lab results, radiology exam(s) and EKG tracing(s) Lab and/or radiology exams considered but not ordered:: Ordered Interpretation Summary: Chest X-Ray FINDINGS: Significant opacity left base most consistent with pneumonia Mild prominence left ventricle No pulmonary edema IMPRESSION: Significant left base pneumonia Medications / Prescriptions Medications or Prescriptions considered but not ordered:: Given Medication administrations:: Medication Administration History Heparin Sodium (Porcine) (Heparin Sod Inj 5000 Unit/Ml Vial) 5,000 unit SC Q12H [facility] Stop: 07/30/24 15:59 Sodium Chloride (Ns) 1,000 mls @ 75 mls/hr IV .[id number] [facility] Stop: 08/15/24 15:59 Ondansetron HCl (Ondansetron Inj 2 Mg/Ml Inj 2 Ml) 4 mg IV Q6H PRN; Protocol PRN Reason: NAUSEA OR VOMITING Stop: 08/15/24 15:47 Discontinued Medications Sodium Chloride (Ns) 500 mls @ 999 mls/hr IV .Q31M ONE Stop: 07/16/24 14:50 Last Infusion: 07/16/24 15:33 Dose: Infused Documented By: Admin: 07/16/24 14:50 Dose: 999 mls/hr Documented By: JOANNA Sodium Chloride (Ns) 1,000 mls @ 100 mls/hr IV .Q10H [facility] Stop: 07/17/24 00:19 Last Admin: 07/16/24 14:51 Dose: 100 mls/hr Documented By: JOANNA Given Consultations Consultation(s) initiated? (list below): Yes Consultation #1 (Physician, Specialty, Details): 13:19 - PCP, Dr. Julien Alas, [facility] Discussed patient's case, patient did not come to clinic today but instead came to the hospital as recommended by his specialists. Patient Bumex dose was being managed by Paper Slitter and had not been changed. Consultation #2 (Physician, Specialty, Details): 14:19 - Nephrology, Dr. Hernandez Discussed patient's case, current BUN and creatinine which are even more elevated at 132 and 6.[address] Hernandez will try to give gentle fluids and see if there is any improvement to renal function. Will start with 500 ml NS IVF bolus and 100 ml/hr NS for 1 more liter. Hold off on dialysis for now. Consultation #3 (Physician, Specialty, Details): 14:35 - Hospitalist, Dr. Rob with Team C, Dr. Burger Discussed patient's case, patient will require admission for further management of LATASHA on CKD. Diagnosis Recheck Differential Diagnosis: other Most likely diagnosis given after review of the tests above:: LATASHA on CKD, most likely prerenal secondary to overdiuresis Admission Indicated Admission indicated?: indicated Explain why admission is indicated or not indicated:: LATASHA on CKD Admission Request Was there a request for admission?: Yes Admission Attestation Admission request attestation: Discussed case with [] from Hospitalist service regarding admission. Discussed patients ED course, exam findings, labs, and radiology results. The Hospitalist [agrees,declines] to accept the patient for admission. Disposition Plan Disposition Plan: Admit Discharge Plan Plan Patient Disposition: Admit Acute Care w/in Hospital Prescriptions/Referrals Prescriptions/Med Rec: No Action tamsulosin 0.4 mg capsule 0.4 mg PO QHS Qty: 30 3RF ferrous sulfate 325 mg (65 mg iron) Tablet,Delayed Release (Dr/Ec) 325 mg PO QOD Qty: 30 0RF atorvastatin 20 mg tablet 20 mg PO QPM Qty: 30 0RF bumetanide 1 mg tablet 1 mg PO BID Qty: 30 0RF spironolactone 25 mg tablet 12.5 mg PO QDAY Qty: 30 0RF Problem List Clinical Impression: Acute kidney injury superimposed on CKD Patient/Caregiver Discharge Instructions Print Language: Tuvaluan Stand Alone Forms: [employer] Award Info., Patient Portal Info Letter
[2024-07-16 13:36] LABS: Lactate (Lactic Acid) 0.9 mMol/L (0.4-2.0)
[2024-07-16 13:39] LABS: Basophils # (Auto) 0.1 Thou/mm3 (0.0-0.2); Basophils % (Auto) 1 % (0-2.5); Eosinophils # (Auto) 0.2 Thou/mm3 (0.0-0.5); Eosinophils % (Auto) 1 % (0-10); Hematocrit 31.2 % (41.0-53.0); Hemoglobin 11.2 g/dL (13.5-16.0); Immature Granulocytes % (Auto) 25 % (0-0); Immature Granulocytes Auto 4.87 Thou/mm3 (0.00-0.00); Lymphocytes # (Auto) 1.7 Thou/mm3 (1.0-4.8); Lymphocytes % (Auto) 9 % (10-50); Mean Corpuscular HGB Conc 35.9 g/dl (31.0-37.0); Mean Corpuscular Hemoglobin 31.6 pg (25.0-35.0); Mean Corpuscular Volume 88 fL (80-100); Monocytes # (Auto) 1.7 Thou/mm3 (0.0-0.8); Monocytes % (Auto) 9 % (0-12); Neutrophils # (Auto) 10.7 Thou/mm3 (1.8-7.7); Neutrophils % (Auto) 56 % (37-80); Nucleated Red Blood Cell # 0.03 Thou/mm3 (0.00-0.00); Nucleated Red Blood Cell % 0 /100 WBC (0); Platelet Count 245 Thou/mm3 (140-440); RDW Standard Deviation 47.1 fL (35.1-43.9); Red Blood Count 3.54 Miln/mm3 (4.50-5.90); White Blood Count 19.3 Thou/mm3 (3.8-10.6)
[2024-07-16 13:54] LABS: INR 1.2 (0.9-1.3); Partial Thromboplastin Time 32.5 Seconds (22.0-36.0); Prothrombin Time 13.4 Seconds (9.0-12.2)
[2024-07-16 14:06] LABS: Alanine Aminotransferase 19 U/L (10-49); Albumin, Serum 3.5 gm/dL (3.5-5.0); Alkaline Phosphatase 122 U/L (46-116); Anion Gap 12 (7-16); Aspartate Amino Transferase 44 U/L (0-34); B-Type Natriuretic Peptide 1642 pg/mL (0-100); BUN/Creatinine Ratio 21 Ratio (12-20); Bilirubin,Total 1.9 mg/dL (0.3-1.2); Calcium 8.6 mg/dL (8.3-10.6); Carbon Dioxide 15.5 mMol/L (20.0-31.0); Chloride 100 mMol/L (98-107); Creatinine (Component) 6.2 mg/dL (0.6-1.3); Estimated Creatinine Clearance 14.7 mL/min (>60); Globulin 3.5 gm/dL (2.3-3.5); Glucose 96 mg/dL (74-106); Magnesium 2.1 mg/dL (1.6-2.6); Osmolality,Calculated 297 (275-295); Potassium 3.4 mMol/L (3.4-5.1); Sodium 127 mMol/L (136-145); eGFR 10 See Note
[2024-07-16 14:13] LABS: Blood Urea Nitrogen 132 mg/dL (9-23); Path Review Blood Smear Sent to Pathologist; Troponin I 0.049 ng/mL (0.0-0.045)
[2024-07-16] MEDS: SODIUM CHLORIDE 0.9% 500 ML 500 ML 999 ML IV (14:50)
[2024-07-16] MEDS: SODIUM CHLORIDE 0.9% 1000 ML 1,000 ML 100 ML IV (14:51)
--- NOTE | 2024-07-16 15:34 | PC.CC ---
Patient is a 54 year-old male who presents to the hospital as he was sent by PCP for Abnormal Renal PNL. Gregoria SANDERS made [id number] contact with patient. ASW introduced self, role, and reason for visit. Patient appeared alert and oriented to self, location, and situation. At bedside was patient's significant other Hanane Rosado whom patient provided consent to remain in the room. Patient was pleasant and engaged in initial assessment. Patient confirmed all information on demographics and confirmed Next of Kin as Hanane Rosado . At home patient is able to ambulate but struggles as he is unsteady. While out in the community the patient uses a wheelchair. Patient requires assistance with ADLs. Patient uses oxygen 24/7 on 3L. Patient is interested in Home Health for PT as patient feels weak. Patient reports he receives primary care at [facility] For prescription medications patient uses [facility]. Upon discharge patient plans to return back home. medical staff services coordinator to follow up for home health.
--- NOTE | 2024-07-16 16:10 | PD.RESHP ---
Documentation for date of: 07/16/24 HPI History of Present Illness History of present illness: Lex is a 54 y/o male with PMHx HFpEF EF 60%, HTN, CKD, methamphetamine use, cirrhosis (complicated with ascities in the past), [place] type B aortic dissection (stable, has been referred to vascular surgery) who comes in after being sent from [facility] after his creatinine was seen to be 6.2. Patient says that he sees supervisor sterile processing Dr. Stubbs in [place] and also batch still operator Dr. Hernandez. He says his creatinine has never been this high. He says he was recently discharged from the hospital for pneumonia that was in mid May. He says he has not felt the same since. He also says that he has had some shortness of breath, and cough that has been occurring for about a week or so. He also called Dr. Amaya for further evaluation and was prescribed Augmentin. He says that his most recent appointment with Dr. Stubbs was today in which she was told to go to the ER after his creatinine function was found to be high. He also said that when he was discharged from the hospital in late May he was given Bumex 1 mg. He also went to go see his supervisor sterile processing around early June in which he had recommended to increase his Bumex dose to 2 mg. He denies any other changes to medicines. He denies any recent travel. Denies any sick contacts. He also says that he has not been eating as much lately. He does say that he tries to adhere to his fluid restriction however he still endorses poor oral intake. He was discharged in May on 3 L of oxygen, and he has still been using it at 3 L no changes to the levels. He says that he has just felt very weak since being discharged from the hospital. He says he would not be able to climb up a flight of stairs. Says bowel movements are twice a day and have been okay. ED course: Patient arrives with a blood pressure of 118/68, afebrile and otherwise unremarkable vitals and was saturating 96% on 3 L. He was worked up and was found to have white count 19.3, hemoglobin 11.2, sodium 127, potassium 3.4, bicarb 15.5, chloride of 100, BUN/creatinine of 132 and 6.2, GFR of 10, glucose of 696, phosphorus of 7, T. bili of 1.9, magnesium of 2.1, troponin 0.049, BNP of 1642. EKG showed some left atrial enlargement and showed bradycardia. Chest x-ray showed significant left base pneumonia. Nephrology was consulted and medicine was consulted. Pt was given 1L bolus NS and was started on NS 100 cc/hr maintenance and pt was admitted to floors. PMHx: As above Surgeries: No known surgeries Allergies: No known allergies Meds: Bumex 2 mg, Augmentin recently started for short course, Plavix 75, Coreg 25, Lipitor 20, aspirin 81, Flomax 0.4, Zoloft 25, losartan 25 Family history: Says that his younger brother had open heart surgery early age for some murmur of some sort and he is still living, hypertension and diabetes runs in his family Social history: Born and raised in [place]. Denies any alcohol, former drug use (however it has been noted in previous chart visits that he has history of meth use and alcohol use), [id number] smoking history quit in May, majority of labs meals at home adheres to a low-salt diet, limits red meat and eat a lot of chicken and turkey. Limited exercise because he gets short of breath very easily. Review of Systems Review of Systems Narrative Review of Systems: 12 point system ROS was reviewed and is otherwise negative unless stated directly in the HPI. Exam Vital Signs Temp Pulse Resp BP Pulse Ox O2 Del Method O2 Flow Rate 97.6 F 60 22 H 118/64 93 L Nasal Cannula 3 07/16/24 12:32 07/16/24 12:32 07/16/24 12:32 07/16/24 12:32 07/16/24 12:32 07/16/24 12:32 07/16/24 12:32 Narrative Exam General: AAOx3, pt wearing mask, looks very lethargic and tired but no acute stress HEENT: Dry mucous membranes, conjunctiva clear, EOMI, PERRLA, okay dentition Cardiovascular: Pansystolic murmur heard, radial pulses +2 bilat, has some tattoos on chest, RRR Pulmonary: Some possible crackles heard in LLB, cough present GI: No tenderness to light or deep palpitation, no guarding, rigidity, rebound tenderness or distension Extremities: No presence of trace or pitting edema in lower extremities bilaterally, dorsalis pedis pulses +2 bilaterally Neuro: AAOx3, no focal motor or sensory deficits in the UE or LE bilat Psych: Cooperative, possible flat effect? Results: Labs 07/17/24 05:27 07/17/24 05:27 Labs: Short CBC 07/16/24 Range/Units 13:13 WBC 19.3 H (3.8-10.6) Thou/mm3 Hgb 11.2 L (13.5-16.0) g/dL Hct 31.2 L (41.0-53.0) % Plt Count 245 (140-440) Thou/mm3 BMP 07/16/24 13:13 Sodium 127 L Potassium 3.4 Chloride 100 Carbon Dioxide 15.5 L BUN 132 H* Creatinine 6.2 H* Glucose 96 Calcium 8.6 Cardiac Enzymes 07/16/24 Range/Units 13:13 Troponin I 0.049 H* (0.0-0.045) ng/mL Liver Function 07/16/24 Range/Units 13:13 Total Bilirubin 1.9 H (0.3-1.2) mg/dL AST 44 H (0-34) U/L ALT 19 (10-49) U/L Alkaline Phosphatase 122 H (46-116) U/L Albumin 3.5 (3.5-5.0) gm/dL Quality Measures Quality Measures none Medications Home Medications and Allergies Allergies Allergy/AdvReac Type Severity Reaction Status Date / Time No Known Allergies Allergy Verified 07/16/24 12:16 Visit Medications Doxycycline Hyclate (Doxycycline 100 Mg Tablet) 100 mg PO BID [facility] Stop: 07/23/24 20:59 Heparin Sodium (Porcine) (Heparin Sod Inj 5000 Unit/Ml Vial) 5,000 unit SC Q12H [facility] Stop: 07/30/24 15:59 Sodium Chloride (Ns) 1,000 mls @ 75 mls/hr IV .[id number] [facility] Stop: 08/15/24 15:59 Ceftriaxone Sodium 1,000 mg/ (Sodium Chloride) 50 mls @ 100 mls/hr IV QDAY [facility] Stop: 07/23/24 16:06 Ondansetron HCl (Ondansetron Inj 2 Mg/Ml Inj 2 Ml) 4 mg IV Q6H PRN; Protocol PRN Reason: NAUSEA OR VOMITING Stop: 08/15/24 15:47 Discontinued Medications Sodium Chloride (Ns) 500 mls @ 999 mls/hr IV .Q31M ONE Stop: 07/16/24 14:50 Last Infusion: 07/16/24 15:33 Dose: Infused Sodium Chloride (Ns) 1,000 mls @ 100 mls/hr IV .Q10H [facility] Stop: 07/17/24 00:19 Last Admin: 07/16/24 14:51 Dose: 100 mls/hr Sevelamer Carbonate (Sevelamer Carbonate 800 Mg Tablet) 800 mg PO X1 ONE Stop: 07/16/24 16:04 Assessment & Plan Plan Assessment Lex is a 54 y/o male with PMHx HFpEF EF 60%, HTN, CKD, methamphetamine use, cirrhosis (complicated with ascities in the past), [place] type B aortic dissection (stable, has been referred to vascular surgery) who is admitted for acute renal failure. #Acute renal failure #Hx of CKD #Electrolyte derangements Patient has never had acute renal failure is not a dialysis patient Patient does have poor oral intake lately He does say that he was on Bumex 2 mg for about a month or so and he was sent to me to ED after he was seen that his creatinine was elevated to 6.2 and his BUN was 132 Patient has not been able to put out good output per patient Status post 1 L bolus Phosphorus 7.0 Plan: ?Nephrology consulted, appreciate recs ?On maintenance NS 100 cc an hour ?Renal panel 7 PM ?Urine lytes with creatinine ?Holding ZOE/ARB ?Avoid any nephrotoxic agents ?Renally dose medicines ?Sevelamer 800 mg x 1 #Community-acquired pneumonia Patient does not meet sepsis criteria, however has been feeling sick for some time Significant left base pneumonia seen on chest x-ray COVID and flu negative Plan: ?Follow-up blood cultures ?Follow-up MRSA screen ?Continue with Rocephin and Doxy () #Hx of [place] B Aortic dissection, stable #Hx of HFrEF, w/ moderate RV dysfunction, EF ~50%, and dilation of RV and RA #History of moderate to severe pulmonary hypertension. #Hx of CAD #Elevated troponin CT chest abdomen and pelvis done in past May and showed Sean type B aortic dissection beginning distal to the left subclavian artery and extending into the upper abdomen but ending prior to the origin of celiac, superior mesenteric artery axis Pt will need very close management of blood pressure Pt to see vascular surgery outpatient Troponin 0.049 Previous Echo done in May 2024 shows Small LV size, moderate LVH with low normal ejection fraction at around 50% Flattened interatrial septum in both systole and diastole indicating both RV pressure and volume overload. Severely dilated right ventricle with moderate RV systolic dysfunction and massively dilated right atrium. 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 bili of 1.9, has been elevated in the past before Plan: ? Trend with CMP ? Daily coag panel #History of BPH Plan: ? Continue with Flomax 0.4 mg #Polysubstance use Patient denies history of drug use Chart review showed previous use of meth, THC and alcohol Plan: ?Will consider referral to social insurance specialist #Health Maintenance Disposition: Telemetry DVT prophylaxis: Heparin GI prophylaxis: None indicated at this time Diet: Renal CODE STATUS: Full Patient seen and care discussed with my senior resident, Dr. Pina, and my attending physician, Dr. Jennyfer Rob, PGY-1 Attending Provider Attestation/Addendum I reviewed labs, imaging, EKG, home medications and prior available records. Face to face evaluation was performed by me. I have personally examined the patient and discussed assessment and plan with the IM team. I reviewed the resident note and agree with the plan with exceptions as below. LATASHA on CKD HFpEF EF 60% Leukocytosis, unspecific Non-STEMI, likely demand ischemia Hyponatremia Left lower lobe pneumonia Start gentle IV hydration Hold diuretics Monitor kidney function. Avoid nephrotoxins. Renally dosed medications Ordered peripheral blood smear Trend troponin until it peaks. Monitor sodium level and avoid rapid correction Start IV ceftriaxone
[2024-07-16 17:44] VITALS: BP 122/59; PULSE 57; RESP 16; TEMP 36.6; O2SAT 95
[2024-07-16] MEDS: cefTRIAXone 1,000 MG in SODIUM CHLORIDE 0.9% (P) 50 ML 100 MG IV (18:03)
[2024-07-16] MEDS: SEVELAMER CARBONATE 800 MG TABLET PO (18:06)
[2024-07-16] MEDS: HEPARIN SOD INJ 5000 UNIT/ML VIAL SC (18:10)
--- NOTE | 2024-07-16 18:44 | PD.RESCONSUL ---
HPI Data of Consult Consult date: 07/16/24 Requesting Physician: Cleve Burger MD Admitting Provider: Cleve Burger MD Attending Provider: Cleve Burger MD Primary Care Provider: Mateo Hernandez MD Consult Narrative Reason for consult: LATASHA History of present illness: The patient is a 54-year-old male with significant past medical history of HFpEF with LVEF 50% on May 2024, moderate to severe pulmonary hypertension RVSP around 60 mmHg, methamphetamine use, cirrhosis of liver, [place] type B aortic dissection who was sent by his ticket puller Dr. Stubbs and chief radiologic technologist Dr. Hernandez after being found to have his creatinine 6.2. He was recently discharged from hospital on 06/01/2024 on Bumex 1 mg twice daily along with Aldactone, as he had gained around 30 pounds before coming to hospital then. However, patient continued Bumex 1 mg twice daily along with Aldactone even after gaining his probable dry weight. He reported that recently he has been having low appetite, and his urine output has gone down. He has been using home oxygen more often. He denied any headache, lightheadedness, chest pain, any abdominal pain, admitted occasional diarrhea, and denied any lower limb edema. He denied any fever or chills, nausea or vomiting. In the ED his vitals were significant for blood pressure 118/64, pulse 60, RR 22, saturating 93% on 3 L NC. Labs are significant for white count 19.3, hemoglobin 11.2, PT 13.4, sodium 127, potassium 3.6, bicarb 15, BUN 30, creatinine 6.2, GFR 9, osmolality 297, total bilirubin 1.9, AST 44, troponin 0.049, BNP 1642, EKG significant for sinus bradycardia, left atrial enlargement with right axis deviation, CXR did not reveal any pulmonary edema. Nephrology consultation was done for LATASHA on CKD stage III A, was recommended to give 1 L of IV normal saline bolus, and then maintenance IV normal saline 100 cc/h. cc:: cc: Cleve Burger MD Review of Systems Review of Systems Systems Reviewed: All systems reviewed, normal except as documented Past Medical History Past Medical History CARDIAC: Positive Hypertension; Negative Cardiac Disorders or Congestive Heart Failure RESPIRATORY: Positive Respiratory Disorders; Negative Chronic Obstructive Pulmonary Disease (COPD) or Asthma GENITOURINARY: Positive Chronic Kidney Disease, Renal Disease and Benign Prostatic Hyperplasia ENDOCRINE: Negative Diabetes Mellitus Type 1 or Diabetes Mellitus Type 2 HEMATOLOGIC: Positive Anemia; Negative Sickle Cell Disease OTHER HISTORY: Positive Hospitalization and Falls (Last July 09, 2024); Negative Blood Transfusions or Anesthesia Reactions Family History FAMILY HISTORY: Positive Family Cardiac Disorders Social History SMOKING STATUS: Never smoker ALCOHOL LAST INTAKE: Unknown Past Medical History Comments PMH COMMENT: Past Medical History: HFpEF (50% 05/2024), hypertension, CKD, history of methamphetamine use Family History: No family history of CKD, positive family history of cardiac disorders, father with hypertension Surgical History: No previous surgeries Social History: Former smoker quit in 05/2024 about 20 pack year history, former alcohol use quit 15 years ago, former marijuana and methamphetamine use quit in 05/2024, denying current drug use Current Medications: Aspirin 81 mg qday, clopidogrel 75 mg qday, atorvastatin 20 mg qday, carvedilol 25 mg BIDWM, losartan 25 mg qday, nifedipine 90 mg qday, bumex 1 mg BID, spironolactone 12.5 mg qday, tamsulosin 0.4 mg qday, ferrous sulfate 325 mg qday, sertraline 25 mg qday (Source: Patient discharge 05/2024) Allergies: No known drug allergies Exam Vital Signs Temp Pulse Resp BP Pulse Ox O2 Del Method O2 Flow Rate 97.8 F 57 L 16 122/59 L 95 Nasal Cannula 2 07/16/24 17:44 07/16/24 17:44 07/16/24 17:44 07/16/24 17:44 07/16/24 17:44 07/16/24 17:44 07/16/24 17:44 Narrative Exam General: Ill appearing, cooperative gentleman, no acute distress, Alert and Oriented x 3 HEENT: Moist mucous membranes, oropharynx clear Neck: Supple, No masses, No JVD CVS: S1S2 Regular rate and rhythm, No murmurs, rubs or gallops, tattoos over chest Lungs: Clear to auscultation with no accessory use, no wheeze no rhonchi Abd: Soft, NT/ND, +BS, no organomegaly Ext: No edema, warm and well perfused Skin: No rash Psych: Appropriate mood and affect Results Labs 07/17/24 05:27 07/17/24 16:47 Labs: Short CBC 07/16/24 Range/Units 13:13 WBC 19.3 H (3.8-10.6) Thou/mm3 Hgb 11.2 L (13.5-16.0) g/dL Hct 31.2 L (41.0-53.0) % Plt Count 245 (140-440) Thou/mm3 BMP 07/16/24 13:13 Sodium 127 L Potassium 3.4 Chloride 100 Carbon Dioxide 15.5 L BUN 132 H* Creatinine 6.2 H* Glucose 96 Calcium 8.6 Cardiac Enzymes 07/16/24 Range/Units 13:13 Troponin I 0.049 H* (0.0-0.045) ng/mL Liver Function 07/16/24 Range/Units 13:13 Total Bilirubin 1.9 H (0.3-1.2) mg/dL AST 44 H (0-34) U/L ALT 19 (10-49) U/L Alkaline Phosphatase 122 H (46-116) U/L Albumin 3.5 (3.5-5.0) gm/dL Quality Measures Quality Measures none Medications Home Medications and Allergies Allergies Allergy/AdvReac Type Severity Reaction Status Date / Time No Known Allergies Allergy Verified 07/16/24 12:16 Visit Medications Aspirin (Aspirin Ec 81 Mg Tabec) 81 mg PO QDAY MICAH Stop: 08/16/24 08:59 Atorvastatin Calcium (Atorvastatin Calcium 10 Mg Tablet) 20 mg PO HS MICAH Stop: 08/15/24 20:59 Carvedilol (Carvedilol 12.5 Mg Tablet) 25 mg PO BID MICAH Stop: 08/15/24 20:59 Clopidogrel Bisulfate (Clopidogrel Bisulfate 75 Mg Tablet) 75 mg PO QDAY MICAH Stop: 08/16/24 08:59 Doxycycline Hyclate (Doxycycline 100 Mg Tablet) 100 mg PO BID MICAH Stop: 07/23/24 20:59 Ferrous Sulfate (Ferrous Sulf 325 Mg Tablet) 325 mg PO Q48HR@2100 MICAH Stop: 08/16/24 08:59 Heparin Sodium (Porcine) (Heparin Sod Inj 5000 Unit/Ml Vial) 5,000 unit SC Q12H MICAH Stop: 07/30/24 15:59 Last Admin: 07/16/24 18:10 Dose: 5,000 unit Sodium Chloride (Ns) 1,000 mls @ 75 mls/hr IV .[id number] MICAH Stop: 08/15/24 15:59 Ceftriaxone Sodium 1,000 mg/ (Sodium Chloride) 50 mls @ 100 mls/hr IV QDAY MICAH Stop: 07/23/24 16:06 Last Admin: 07/16/24 18:03 Dose: 100 mls/hr Ondansetron HCl (Ondansetron Inj 2 Mg/Ml Inj 2 Ml) 4 mg IV Q6H PRN; Protocol PRN Reason: NAUSEA OR VOMITING Stop: 08/15/24 15:47 Sertraline HCl (Sertraline Hcl 25 Mg Tablet) 25 mg PO HS MICAH Stop: 08/15/24 20:59 Tamsulosin HCl (Tamsulosin Hcl 0.4 Mg Capsule) 0.4 mg PO DAILY MICAH Stop: 08/16/24 08:59 Discontinued Medications Sodium Chloride (Ns) 500 mls @ 999 mls/hr IV .Q31M ONE Stop: 07/16/24 14:50 Last Infusion: 07/16/24 15:33 Dose: Infused Sodium Chloride (Ns) 1,000 mls @ 100 mls/hr IV .Q10H MICAH Stop: 07/17/24 00:19 Last Admin: 07/16/24 14:51 Dose: 100 mls/hr Sevelamer Carbonate (Sevelamer Carbonate 800 Mg Tablet) 800 mg PO X1 ONE Stop: 07/16/24 16:04 Last Admin: 07/16/24 18:06 Dose: 800 mg Assessment & Plan Plan The patient is a 54-year-old male with significant past medical history of HFpEF with LVEF 50% on May 2024, moderate to severe pulmonary hypertension RVSP around 60 mmHg, methamphetamine use, cirrhosis of liver, [place] type B aortic dissection who was sent by his ticket puller Dr. Stubbs and chief radiologic technologist Dr. Hernandez after being found to have his creatinine 6.2. Nephrology consultation was done for LATASHA on CKD stage III A. #LATASHA on CKD stage III A Likely secondary to aggressive diuresis. The patient was started on oral Bumex 1 mg twice daily along with Aldactone, and he continued the medications even after receiving probable dry weight. He has been having decreased appetite, and has been having poor oral intake for past week. Patient's baseline creatinine is 1.6-1.8, baseline GFR in 50s. Presented with creatinine of 6.2 and GFR 10. -Patient received 1 L IV normal saline bolus fluid in the ED -Started on IV maintenance fluid normal saline 100 cc/h -Monitor ins and outs strictly -Avoid nephrotoxic drugs -Renally dose medications -Renal diet -Renal panel daily in the a.m. 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 -Bicitra 30 mL 3 times daily -Renal panel daily in the a.m. -As above #Moderate hypovolemic hyperosmolar hyponatremia Likely multifactorial secondary to RTA, aggressive diuretic use and poor oral intake -Patient received 1 L of IV normal saline bolus in the ED -Started on maintenance normal saline 100 cc/h -Continue to monitor sodium level daily in the a.m. #Hyperphosphatemia Secondary to CKD further complicated by LATASHA -Sevelamer 800 Mg 3 times daily with meals -Monitor phosphorus level daily in the a.m. #Anemia Likely secondary to CKD, could be multifactorial with iron deficiency anemia in the setting of poor oral intake Hg 11.2, MCV 88. -Started the patient on oral ferrous sulfate 325 Mg every other day -Ordered iron panel by hospitalist team -Ordered ferritin level #Community-acquired pneumonia #Hx of [place] B Aortic dissection, stable #Hx of HFrEF, w/ moderate RV dysfunction, EF ~50%, and dilation of RV and RA #History of moderate to severe pulmonary hypertension. 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 The patient's management plan was discussed with my attending physician MD Chauncey Brothers MD, PGY2 Attending Provider Attestation/Addendum Patient seen and examined with resident physician Dr. Zambrano. Note reviewed, agree with findings and recommendations. Patient well-known to me from my CKD clinic. In fact I sent him to the hospital with significant azotemia on labs. Patient with severe prerenal azotemia secondary to diuretics. His last ejection fraction was 50%. Clinically looks extremely dehydrated. Continue with the fluids. No need for emergency dialysis. Did discuss with patient and mom at bedside regarding need for renal replacement therapy if no improvement in azotemia. Agreed. Thank you Cleve for allowing me to participate in the care of Lex
[2024-07-16 18:48] VITALS: BMI 23.0
[2024-07-16 20:00] VITALS: BP 116/53; PULSE 56; RESP 18; TEMP 36.4; O2SAT 93
[2024-07-16 20:47] LABS: Albumin, Serum 3.3 gm/dL (3.5-5.0); Anion Gap 10 (7-16); BUN/Creatinine Ratio 22 Ratio (12-20); Blood Urea Nitrogen 130 mg/dL (9-23); Calcium 8.3 mg/dL (8.3-10.6); Calcium (Corrected) 8.9 mg/dL (8.5-10.1); Chloride 102 mMol/L (98-107); Estimated Creatinine Clearance 15.2 mL/min (>60); Glucose 91 mg/dL (74-106); Osmolality,Calculated 297 (275-295); Phosphorous 7.1 mg/dL (2.4-5.1); Potassium 3.6 mMol/L (3.4-5.1); Sodium 127 mMol/L (136-145); eGFR 10 See Note
[2024-07-16] MEDS: ATORVASTATIN CALCIUM 10 MG TABLET 20 MG PO (20:50)
[2024-07-16] MEDS: SERTRALINE HCL 25 MG TABLET PO (20:51)
[2024-07-16] MEDS: DOXYCYCLINE 100 MG TABLET PO (20:51)
[2024-07-16 21:05] VITALS: BP 116/53; PULSE 57
[2024-07-17] VITALS (8 sets, daily range): BP systolic 132–158; BP diastolic 62–79; PULSE 58–66; RESP 17–21; TEMP 36.6–37.1; O2SAT 92–94
[2024-07-17 00:13] LABS: Collection Type, Urine Clean Catch
[2024-07-17 00:39] LABS: Bacteria,Urine Rare; Bilirubin,Urine Negative (Negative); Blood,Urine 2+ (Negative); Clarity,Urine Turbid (Clear/Hazy); Color,Urine Yellow (Lt Yel-Yel); Glucose, Urine Negative (Negative); Hyaline Casts,Urine < 1 /hpf (0-1); Ketones,Urine Negative (Negative); Leukocyte Esterase,Urine Positive (Negative); Nitrite,Urine Negative (Negative); PH,Urine 5.5 (5.0-7.0); Protein,Urine 1+ (Neg - Trace); RBC,Urine 9 /hpf (0-3); Specific Gravity,Urine 1.017 (1.001-1.035); Squamous Epithelial Cell,Urine 2 /hpf (0-5); WBC,Urine 373 /hpf (0-5)
[2024-07-17 00:42] LABS: Amphetamine/Methamp Scrn,U Negative (Negative); Barbiturate Screen,Urine Negative (Negative); Benzodiazepines Screen,Urine Negative (Negative); Benzoylecgonine Screen, Ur Negative (Negative); Fentanyl Screen,Urine Negative (Negative); Opiate Screen,Urine Negative (Negative); THC Screen,Urine Negative (Negative)
[2024-07-17 00:43] LABS: Chloride,Urine Random < 20.0 mMol/L (55.0-125.0); Potassium,Urine Random 32 mMol/L (12-62); Sodium,Urine Random 18.8 mMol/L (20.0-110.0)
[2024-07-17 00:57] LABS: Creatinine,Random Urine 273 mg/dL (30-125)
[2024-07-17] MEDS: SODIUM CHLORIDE 0.9% 1000 ML 1,000 ML 75 ML IV (02:03)
[2024-07-17] MEDS: CITRIC ACID/SODIUM CITR 15 ML UDC (BICITRA) 30 ML PO ×3 (05:34→21:02)
[2024-07-17] MEDS: HEPARIN SOD INJ 5000 UNIT/ML VIAL SC ×2 (05:36→20:52)
[2024-07-17 05:41] LABS: Basophils # (Auto) 0.2 Thou/mm3 (0.0-0.2); Basophils % (Auto) 1 % (0-2.5); Eosinophils # (Auto) 0.3 Thou/mm3 (0.0-0.5); Eosinophils % (Auto) 2 % (0-10); Hematocrit 32.2 % (41.0-53.0); Hemoglobin 11.6 g/dL (13.5-16.0); Immature Granulocytes % (Auto) 23 % (0-0); Immature Granulocytes Auto 4.48 Thou/mm3 (0.00-0.00); Lymphocytes # (Auto) 1.8 Thou/mm3 (1.0-4.8); Lymphocytes % (Auto) 9 % (10-50); Mean Corpuscular Volume 86 fL (80-100); Monocytes # (Auto) 1.3 Thou/mm3 (0.0-0.8); Monocytes % (Auto) 7 % (0-12); Neutrophils # (Auto) 11.9 Thou/mm3 (1.8-7.7); Neutrophils % (Auto) 60 % (37-80); Nucleated Red Blood Cell % 0 /100 WBC (0); Platelet Count 277 Thou/mm3 (140-440); RDW Standard Deviation 45.3 fL (35.1-43.9); Red Blood Count 3.74 Miln/mm3 (4.50-5.90)
[2024-07-17 06:00] LABS: INR 1.2 (0.9-1.3)
[2024-07-17 06:14] LABS: Ferritin 532 ng/mL (10.5-307.3); Iron 62 mcg/dL (65-175); Percent Iron Saturation 30 % (20-55); Total Iron Binding Capacity 204 mcg/dL (250-425); Unsaturated Iron Binding 142 (225-295)
[2024-07-17 06:28] LABS: Alanine Aminotransferase 14 U/L (10-49); Albumin, Serum 3.2 gm/dL (3.5-5.0); Alkaline Phosphatase 107 U/L (46-116); Anion Gap 12 (7-16); Aspartate Amino Transferase 25 U/L (0-34); BUN/Creatinine Ratio 24 Ratio (12-20); Bilirubin,Total 1.5 mg/dL (0.3-1.2); Calcium 8.5 mg/dL (8.3-10.6); Calcium (Corrected) 9.1 mg/dL (8.5-10.1); Chloride 104 mMol/L (98-107); Cholesterol 82 mg/dL (132-200); Creatinine (Component) 5.4 mg/dL (0.6-1.3); Estimated Creatinine Clearance 16.9 mL/min (>60); Globulin 3.3 gm/dL (2.3-3.5); Glucose 85 mg/dL (74-106); HDL Cholesterol < 10 mg/dL (40-60); LDL Cholesterol,Calculated 35 mg/dL (0-130); Magnesium 2.1 mg/dL (1.6-2.6); Osmolality,Calculated 302 (275-295); Phosphorous 7.3 mg/dL (2.4-5.1); Potassium 3.7 mMol/L (3.4-5.1); Sodium 130 mMol/L (136-145); Total Protein 6.5 gm/dL (5.7-8.2); Triglycerides 185 mg/dL (30-150); eGFR 12 See Note
[2024-07-17 06:34] LABS: Carbon Dioxide 14.5 mMol/L (20.0-31.0)
[2024-07-17 06:35] LABS: Blood Urea Nitrogen 131 mg/dL (9-23)
[2024-07-17] MEDS: ASPIRIN EC 81 MG TABEC PO (08:12)
[2024-07-17] MEDS: DOXYCYCLINE 100 MG TABLET PO ×2 (08:12→20:52)
[2024-07-17] MEDS: carVEDILOL 12.5 MG TABLET 25 MG PO ×2 (08:12→20:51)
[2024-07-17] MEDS: SODIUM BICARB INJ 8.4% 1 mEq/ML VIAL 50 ML 50 MEQ IV (08:12)
[2024-07-17] MEDS: cefTRIAXone 1,000 MG in SODIUM CHLORIDE 0.9% (P) 50 ML 100 MG IV (08:12)
[2024-07-17] MEDS: FERROUS SULF 325 MG TABLET PO ×2 (08:14→20:52)
[2024-07-17] MEDS: SEVELAMER CARBONATE 800 MG TABLET PO ×3 (08:14→17:10)
[2024-07-17] MEDS: CLOPIDOGREL BISULFATE 75 MG TABLET PO (08:14)
[2024-07-17] MEDS: TAMSULOSIN HCL 0.4 MG CAPSULE PO (08:14)
--- NOTE | 2024-07-17 11:02 | PD.RESPRO ---
Documentation for date of: 07/17/24 Subjective Subjective Interval history: 07/17/2024: Pt examined at bedside today. No acute overnight events. Patient reports he is doing well. He says he feels less thirsty and dry compared to yesterday. He said he slept well. Not experiencing chest pain or shortness of breath. Blood pressure 140/68 today. White count 20, hemoglobin 11.6, sodium 130, potassium 3.7, bicarb 14.5, BUN/creatinine 131 5.4, glucose 85, phosphorus 7.4 AST ALT 25 and 14 respectively. No other complaints at this time. Exam Vital Signs Temp Pulse Resp BP Pulse Ox O2 Del Method O2 Flow Rate 98.7 F 63 17 150/69 H 93 L Nasal Cannula 2 07/17/24 08:00 07/17/24 08:12 07/17/24 08:00 07/17/24 08:12 07/17/24 08:00 07/17/24 08:00 07/17/24 08:00 Narrative Exam General: AAOx3, NAD, pt appears comfortable HEENT: Dry mucous membranes, conjunctiva clear, EOMI, PERRLA, okay dentition Cardiovascular: Pansystolic murmur heard, radial pulses +2 bilat, has some tattoos on chest, RRR Pulmonary: Some possible crackles heard in LLB, cough present GI: No tenderness to light or deep palpitation, no guarding, rigidity, rebound tenderness or distension Extremities: No presence of trace or pitting edema in lower extremities bilaterally, dorsalis pedis pulses +2 bilaterally Neuro: AAOx3, no focal motor or sensory deficits in the UE or LE bilat Psych: Cooperative, Objective Labs 07/17/24 05:27 07/17/24 11:17 Labs: Laboratory Results - last 24 hr 07/16/24 07/16/24 07/16/24 13:13 19:54 23:50 WBC 19.3 H RBC 3.54 L Hgb 11.2 L Hct 31.2 L MCV 88 MCH 31.6 MCHC 35.9 RDW Std Deviation 47.1 H Plt Count 245 Neut % (Auto) 56 Lymph % (Auto) 9 L [place] % (Auto) 9 Eos % (Auto) 1 Baso % (Auto) 1 Neut # (Auto) 10.7 H Lymph # (Auto) 1.7 [place] # (Auto) 1.7 H Eos # (Auto) 0.2 Baso # (Auto) 0.1 Immature Gran # (Auto) 4.87 H Absolute Nucleated RBC 0.03 H Immature Gran % 25 H Nucleated RBC % 0 Smear Path Review Sent to Pathologist PT 13.4 H INR 1.2 APTT 32.5 Sodium 127 L 127 L Potassium 3.4 3.6 Chloride 100 102 Carbon Dioxide 15.5 L 15.0 L Anion Gap 12 10 BUN 132 H* 130 H* Creatinine 6.2 H* 6.0 H* Estim Creat Clear Calc 14.7 L 15.2 L eGFR 10 L* 10 L* BUN/Creatinine Ratio 21 H 22 H Glucose 96 91 Calculated Osmolality 297 H 297 H Lactic Acid 0.9 Calcium 8.6 8.3 Corrected Calcium 9.0 8.9 Phosphorus 7.0 H 7.1 H Magnesium 2.1 Iron TIBC Iron Saturation Unsat Iron Binding Ferritin Total Bilirubin 1.9 H AST 44 H ALT 19 Alkaline Phosphatase 122 H Troponin I 0.049 H* 0.040 B-Natriuretic Peptide 1642 H* Total Protein 7.0 Albumin 3.5 3.3 L Globulin 3.5 Albumin/Globulin Ratio 1.0 L Triglycerides Cholesterol LDL Cholesterol, Calc HDL Cholesterol Cholesterol/HDL Ratio TSH Ur Collection Type Clean Catch Urine Color Yellow Urine Clarity Turbid A Urine pH 5.5 Ur Specific [place] 1.017 Urine Protein 1+ A Urine Glucose (UA) Negative Urine Ketones Negative Urine Blood 2+ A Urine Nitrite Negative Urine Bilirubin Negative Urine Urobilinogen (Auto) 3.0 Ur Leukocyte Esterase Positive Urine RBC 9 H Urine WBC 373 H Ur Squamous Epith Cells 2 Urine Bacteria Rare Hyaline Casts < 1 Ur Random Creatinine 273 H Ur Random Sodium 18.8 L Ur Random Potassium 32 Ur Random Chloride < 20.0 L Urine Opiates Screen Negative Urine Fentanyl Screen Negative Ur Barbiturates Screen Negative U Amphetamin/Meth Scrn Negative U Benzodiazepines Scrn Negative U Cocaine Metab Screen Negative U Marijuana (THC) Screen Negative 07/17/24 05:27 WBC 20.0 H RBC 3.74 L Hgb 11.6 L Hct 32.2 L MCV 86 MCH 31.0 MCHC 36.0 RDW Std Deviation 45.3 H Plt Count 277 D Neut % (Auto) 60 Lymph % (Auto) 9 L [place] % (Auto) 7 Eos % (Auto) 2 Baso % (Auto) 1 Neut # (Auto) 11.9 H Lymph # (Auto) 1.8 [place] # (Auto) 1.3 H Eos # (Auto) 0.3 Baso # (Auto) 0.2 Immature Gran # (Auto) 4.48 H Absolute Nucleated RBC 0.00 Immature Gran % 23 H Nucleated RBC % 0 Smear Path Review PT 13.0 H INR 1.2 APTT 32.0 Sodium 130 L Potassium 3.7 Chloride 104 Carbon Dioxide 14.5 L* Anion Gap 12 BUN 131 H* Creatinine 5.4 H* D Estim Creat Clear Calc 16.9 L eGFR 12 L* BUN/Creatinine Ratio 24 H Glucose 85 Calculated Osmolality 302 H Lactic Acid Calcium 8.5 Corrected Calcium 9.1 Phosphorus 7.3 H Magnesium 2.1 Iron 62 L TIBC 204 L Iron Saturation 30 Unsat Iron Binding 142 L Ferritin 532 H Total Bilirubin 1.5 H AST 25 ALT 14 Alkaline Phosphatase 107 Troponin I B-Natriuretic Peptide Total Protein 6.5 Albumin 3.2 L Globulin 3.3 Albumin/Globulin Ratio 1.0 L Triglycerides 185 H Cholesterol 82 L LDL Cholesterol, Calc 35 HDL Cholesterol < 10 L Cholesterol/HDL Ratio 8.0 H TSH 1.80 Ur Collection Type Urine Color Urine Clarity Urine pH Ur Specific [place] Urine Protein Urine Glucose (UA) Urine Ketones Urine Blood Urine Nitrite Urine Bilirubin Urine Urobilinogen (Auto) Ur Leukocyte Esterase Urine RBC Urine WBC Ur Squamous Epith Cells Urine Bacteria Hyaline Casts Ur Random Creatinine Ur Random Sodium Ur Random Potassium Ur Random Chloride Urine Opiates Screen Urine Fentanyl Screen Ur Barbiturates Screen U Amphetamin/Meth Scrn U Benzodiazepines Scrn U Cocaine Metab Screen U Marijuana (THC) Screen Quality Measures Quality Measures none Assessment & Plan Assessment Current Active Medications: Generic Name Dose Route Start Last Admin Trade Name Freq PRN Reason Stop Dose Admin Aspirin 81 mg 07/17/24 09:00 07/17/24 08:12 Aspirin Ec 81 Mg Tabec PO 08/16/24 08:59 81 mg QDAY MICAH Administration Atorvastatin Calcium 20 mg 07/17/24 21:00 Atorvastatin Calcium 20 Mg Tablet PO 08/15/24 20:59 HS MICAH Carvedilol 25 mg 07/16/24 21:00 07/17/24 08:12 Carvedilol 12.5 Mg Tablet PO 08/15/24 20:59 25 mg BID MICAH Administration Citric Acid/Sodium Citrate 30 ml 02/11/25 22:00 07/17/24 05:34 Citric Acid/Sodium Citr 15 Ml Udc (Bicitra) PO 08/15/24 21:59 30 ml TID MICAH Administration Clopidogrel Bisulfate 75 mg 07/17/24 09:00 07/17/24 08:14 Clopidogrel Bisulfate 75 Mg Tablet PO 08/16/24 08:59 75 mg QDAY MICAH Administration Doxycycline Hyclate 100 mg 07/16/24 21:00 07/17/24 08:12 Doxycycline 100 Mg Tablet PO 07/23/24 20:59 100 mg BID MICAH Administration Ferrous Sulfate 325 mg 07/17/24 09:00 07/17/24 08:14 Ferrous Sulf 325 Mg Tablet PO 08/16/24 08:59 325 mg Q48HR@2100 MICAH Administration Heparin Sodium (Porcine) 5,000 unit 07/17/24 21:00 Heparin Sod Inj 5000 Unit/Ml Vial SC 07/30/24 15:59 Q12HR MICAH Ceftriaxone Sodium 1,000 mg/ 50 mls @ 100 mls/hr 07/16/24 16:07 07/17/24 08:12 Sodium Chloride IV 07/23/24 16:06 100 mls/hr QDAY MICAH Administration Sodium Chloride 1,000 mls @ 100 mls/hr 07/17/24 08:40 Ns IV 08/16/24 08:36 .Q10H MICAH Ondansetron HCl 4 mg 07/16/24 15:48 Ondansetron Inj 2 Mg/Ml Inj 2 Ml IV 08/15/24 15:47 Q6H PRN NAUSEA OR VOMITING Protocol Sertraline HCl 25 mg 07/16/24 21:00 07/16/24 20:51 Sertraline Hcl 25 Mg Tablet PO 08/15/24 20:59 25 mg HS MICAH Administration Sevelamer Carbonate 800 mg 07/17/24 08:00 07/17/24 08:14 Sevelamer Carbonate 800 Mg Tablet PO 08/16/24 07:59 800 mg TIDWM MICAH Administration Tamsulosin HCl 0.4 mg 07/17/24 09:00 07/17/24 08:14 Tamsulosin Hcl 0.4 Mg Capsule PO 08/16/24 08:59 0.4 mg DAILY MICAH Administration Plan Assessment Lex is a 54 y/o male with PMHx HFpEF EF 60%, HTN, CKD, methamphetamine use, cirrhosis (complicated with ascities in the past), [place] type B aortic dissection (stable, has been referred to vascular surgery) who is admitted for acute renal failure. #Acute renal failure, improving #Oliguria #Hx of CKD #Metabolic acidosis #Electrolyte derangements Patient has never had acute renal failure is not a dialysis patient Patient does have poor oral intake lately He does say that he was on Bumex 2 mg for about a month or so and he was sent to me to ED after he was seen that his creatinine was elevated to 6.2 and his BUN was 132 Patient has not been able to put out good output per patient Phosphorus 7.3 today Pt most likely in renal failure at this time due to Bumex prior to admission Pt has had 100 cc UOP for past 24 hours FeNa difficult to calculate as pt was on diuretics We want to give pt fluids, however do not want to push patient into decompensated HF Plan: ?Nephrology consulted, appreciate recs ?Continue maintenance NS 100 cc/hr ?Renal panel q6h ?Urine lytes with creatinine ?Holding ZOE/ARB ?Avoid any nephrotoxic agents ?Renally dose medicines ?Sevelamer 800 mg TID ?Fluid restriction 3 L ?Bicitra 30 mL TID #Community-acquired pneumonia Patient does not meet sepsis criteria, however has been feeling sick for some time Significant left base pneumonia seen on chest x-ray COVID and flu negative BC no growth after one day Plan: ?Follow-up MRSA screen ?Continue with Rocephin and Doxy () #Hx of [place] B Aortic dissection, stable #Hx of HFrEF, w/ moderate RV dysfunction, EF ~50%, and dilation of RV and RA #History of moderate to severe pulmonary hypertension. #Hx of CAD #Elevated troponin, resolved CT chest abdomen and pelvis done in past May and showed [place] type B aortic dissection beginning distal to the left subclavian artery and extending into the upper abdomen but ending prior to the origin of celiac, superior mesenteric artery axis Pt will need very close management of blood pressure Pt to see vascular surgery outpatient Troponin 0.049 peaked Previous Echo done in May 2024 shows Small LV size, moderate LVH with low normal ejection fraction at around 50% Flattened interatrial septum in both systole and diastole indicating both RV pressure and volume overload. Severely dilated right ventricle with moderate RV systolic dysfunction and massively dilated right atrium. Moderate to severe TR and estimated RVSP around 60 mmHg indicating moderate to severe pulmonary hypertension Trace MR and dilated IVC Plan: ?Resuming GDMT therapy including Coreg ?Strict WES's ?Fluid restriction 3000 cc ?Continue with aspirin #Anemia of chronic disease Ferritin elevated, MCV ~86, Hgb chronically in 11s PBS shows 25% immature granulocytes Recommend for further testing per pathologist Could be component of malignancy including leukemia, however could be related to kidney disease CBC shows elevated granulocytes in 4% Plan: ?Flow cytometry send out ?BCR-ALB1 PCR ?Trend with CBC #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 bili of 1.9, has been elevated in the past before Plan: ? Trend with CMP #History of BPH Plan: ? Continue with Flomax 0.4 mg #Polysubstance use Patient denies history of drug use Chart review showed previous use of meth, THC and alcohol Plan: ?Will consider referral to dialysis social worker #Health Maintenance Disposition: Telemetry DVT prophylaxis: Heparin GI prophylaxis: None indicated at this time Diet: Renal CODE STATUS: Full Patient seen and care discussed with my senior resident, Dr. Pina, and my attending physician, Dr. Jennyfer Rob, PGY-1 Attending Provider Attestation/Addendum I reviewed labs, imaging, EKG, home medications and prior available records. Face to face evaluation was performed by me. I have personally examined the patient and discussed assessment and plan with the IM team. I reviewed the resident note and agree with the plan with exceptions as below. LATASHA on CKD HFpEF EF 60% Leukocytosis, unspecific Non-STEMI, likely demand ischemia Hyponatremia Left lower lobe pneumonia Started gentle IV hydration Held diuretics Monitor kidney function: Creatinine slightly. Avoid nephrotoxins. Renally dosed medications Consulted nephrology: Recommended to continue IV hydration Ordered peripheral blood smear: Showed significant left shift. Concern for leukemia. Ordered flow cytometry and BCR ABL 1 mutation detection test. Discussed the results with the pathologist who will follow. Continue to monitor CBC Trend troponin: Peaked Monitor sodium level and avoid rapid correction: Sodium improved Started IV ceftriaxone and doxycycline Started Coreg for the hypertension
--- NOTE | 2024-07-17 11:29 | PD.RESPRO ---
Documentation for date of: 07/17/24 Subjective Subjective Interval history: The patient is a 54-year-old male with significant past medical history of HFpEF with LVEF 50% on May 2024, moderate to severe pulmonary hypertension RVSP around 60 mmHg, methamphetamine use, cirrhosis of liver, Sean type B aortic dissection who was sent by his product management manager Dr. Stubbs and commercial maintenance technician Dr. Hernandez after being found to have his creatinine 6.2. He was recently discharged from hospital on 06/01/2024 on Bumex 1 mg twice daily along with Aldactone, as he had gained around 30 pounds before coming to hospital then. However, patient continued Bumex 1 mg twice daily along with Aldactone even after gaining his probable dry weight. He reported that recently he has been having low appetite, and his urine output has gone down. He has been using home oxygen more often. He denied any headache, lightheadedness, chest pain, any abdominal pain, admitted occasional diarrhea, and denied any lower limb edema. He denied any fever or chills, nausea or vomiting. In the ED his vitals were significant for blood pressure 118/64, pulse 60, RR 22, saturating 93% on 3 L NC. Labs are significant for white count 19.3, hemoglobin 11.2, PT 13.4, sodium 127, potassium 3.6, bicarb 15, BUN 30, creatinine 6.2, GFR 9, osmolality 297, total bilirubin 1.9, AST 44, troponin 0.049, BNP 1642, EKG significant for sinus bradycardia, left atrial enlargement with right axis deviation, CXR did not reveal any pulmonary edema. Nephrology consultation was done for LATASHA on CKD stage III A, was recommended to give 1 L of IV normal saline bolus, and then maintenance IV normal saline 100 cc/h. 07/17/2024: The patient was interviewed and examined at the bedside this morning. He reported doing a little better. His blood pressure was 150/69, saturating 93% on 2 L NC. White count mildly trended up to 20.0, hemoglobin 11.6, sodium 130, bicarb trended down to 14.5, BUN trended up to 131, creatinine trended down to 5.4, and EGFR improved to 12. Phosphorus has been worsening to 7.3. Iron 62, TIBC 204, iron binding 142, ferritin 532, likely anemia of chronic disease may be multifactorial with iron deficiency in the setting of low p.o. intake. Exam Vital Signs Temp Pulse Resp BP Pulse Ox O2 Del Method O2 Flow Rate 98.7 F 63 17 150/69 H 93 L Nasal Cannula 2 07/17/24 08:00 07/17/24 08:12 07/17/24 08:00 07/17/24 08:12 07/17/24 08:00 07/17/24 08:00 07/17/24 08:00 Narrative Exam General: Ill appearing, cooperative gentleman, no acute distress, Alert and Oriented x 3 HEENT: Moist mucous membranes, oropharynx clear Neck: Supple, No masses, No JVD CVS: S1S2 Regular rate and rhythm, No murmurs, rubs or gallops, tattoos over chest Lungs: Clear to auscultation with no accessory use, no wheeze no rhonchi Abd: Soft, NT/ND, +BS, no organomegaly Ext: No edema, warm and well perfused Skin: No rash Psych: Appropriate mood and affect Objective Labs 07/17/24 05:27 07/17/24 16:47 Labs: Laboratory Results - last 24 hr 07/16/24 07/16/24 07/16/24 13:13 19:54 23:50 WBC 19.3 H RBC 3.54 L Hgb 11.2 L Hct 31.2 L MCV 88 MCH 31.6 MCHC 35.9 RDW Std Deviation 47.1 H Plt Count 245 Neut % (Auto) 56 Lymph % (Auto) [address] [place] % (Auto) 9 Eos % (Auto) 1 Baso % (Auto) 1 Neut # (Auto) 10.7 H Lymph # (Auto) 1.7 [place] # (Auto) 1.7 H Eos # (Auto) 0.2 Baso # (Auto) 0.1 Immature Gran # (Auto) 4.87 H Absolute Nucleated RBC 0.03 H Immature Gran % 25 H Nucleated RBC % 0 Smear Path Review Sent to Pathologist PT 13.4 H INR 1.2 APTT 32.5 Sodium 127 L 127 L Potassium 3.4 3.6 Chloride 100 102 Carbon Dioxide 15.5 L 15.0 L Anion Gap 12 10 BUN 132 H* 130 H* Creatinine 6.2 H* 6.0 H* Estim Creat Clear Calc 14.7 L 15.2 L eGFR 10 L* 10 L* BUN/Creatinine Ratio 21 H 22 H Glucose 96 91 Calculated Osmolality 297 H 297 H Lactic Acid 0.9 Calcium 8.6 8.3 Corrected Calcium 9.0 8.9 Phosphorus 7.0 H 7.1 H Magnesium 2.1 Iron TIBC Iron Saturation Unsat Iron Binding Ferritin Total Bilirubin 1.9 H AST 44 H ALT 19 Alkaline Phosphatase 122 H Troponin I 0.049 H* 0.040 B-Natriuretic Peptide 1642 H* Total Protein 7.0 Albumin 3.5 3.3 L Globulin 3.5 Albumin/Globulin Ratio 1.0 L Triglycerides Cholesterol LDL Cholesterol, Calc HDL Cholesterol Cholesterol/HDL Ratio TSH Ur Collection Type Clean Catch Urine Color Yellow Urine Clarity Turbid A Urine pH 5.5 Ur Specific [place] 1.017 Urine Protein 1+ A Urine Glucose (UA) Negative Urine Ketones Negative Urine Blood 2+ A Urine Nitrite Negative Urine Bilirubin Negative Urine Urobilinogen (Auto) 3.0 Ur Leukocyte Esterase Positive Urine RBC 9 H Urine WBC 373 H Ur Squamous Epith Cells 2 Urine Bacteria Rare Hyaline Casts < 1 Ur Random Creatinine 273 H Ur Random Sodium 18.8 L Ur Random Potassium 32 Ur Random Chloride < 20.0 L Urine Opiates Screen Negative Urine Fentanyl Screen Negative Ur Barbiturates Screen Negative U Amphetamin/Meth Scrn Negative U Benzodiazepines Scrn Negative U Cocaine Metab Screen Negative U Marijuana (THC) Screen Negative 07/17/24 05:27 WBC 20.0 H RBC 3.74 L Hgb 11.6 L Hct 32.2 L MCV 86 MCH 31.0 MCHC 36.0 RDW Std Deviation 45.3 H Plt Count 277 D Neut % (Auto) 60 Lymph % (Auto) [address] [place] % (Auto) 7 Eos % (Auto) 2 Baso % (Auto) 1 Neut # (Auto) 11.9 H Lymph # (Auto) 1.8 [place] # (Auto) 1.3 H Eos # (Auto) 0.3 Baso # (Auto) 0.2 Immature Gran # (Auto) 4.48 H Absolute Nucleated RBC 0.00 Immature Gran % 23 H Nucleated RBC % 0 Smear Path Review PT 13.0 H INR 1.2 APTT 32.0 Sodium 130 L Potassium 3.7 Chloride 104 Carbon Dioxide 14.5 L* Anion Gap 12 BUN 131 H* Creatinine 5.4 H* D Estim Creat Clear Calc 16.9 L eGFR 12 L* BUN/Creatinine Ratio 24 H Glucose 85 Calculated Osmolality 302 H Lactic Acid Calcium 8.5 Corrected Calcium 9.1 Phosphorus 7.3 H Magnesium 2.1 Iron 62 L TIBC 204 L Iron Saturation 30 Unsat Iron Binding 142 L Ferritin 532 H Total Bilirubin 1.5 H AST 25 ALT 14 Alkaline Phosphatase 107 Troponin I B-Natriuretic Peptide Total Protein 6.5 Albumin 3.2 L Globulin 3.3 Albumin/Globulin Ratio 1.0 L Triglycerides 185 H Cholesterol 82 L LDL Cholesterol, Calc 35 HDL Cholesterol < 10 L Cholesterol/HDL Ratio 8.0 H TSH 1.80 Ur Collection Type Urine Color Urine Clarity Urine pH Ur Specific Walton Urine Protein Urine Glucose (UA) Urine Ketones Urine Blood Urine Nitrite Urine Bilirubin Urine Urobilinogen (Auto) Ur Leukocyte Esterase Urine RBC Urine WBC Ur Squamous Epith Cells Urine Bacteria Hyaline Casts Ur Random Creatinine Ur Random Sodium Ur Random Potassium Ur Random Chloride Urine Opiates Screen Urine Fentanyl Screen Ur Barbiturates Screen U Amphetamin/Meth Scrn U Benzodiazepines Scrn U Cocaine Metab Screen U Marijuana (THC) Screen Quality Measures Quality Measures none Assessment & Plan Assessment Current Active Medications: Generic Name Dose Route Start Last Admin Trade Name Freq PRN Reason Stop Dose Admin Aspirin 81 mg 07/17/24 09:00 07/17/24 08:12 Aspirin Ec 81 Mg Tabec PO 08/16/24 08:59 81 mg QDAY MICAH Administration Atorvastatin Calcium 20 mg 07/17/24 21:00 Atorvastatin Calcium 20 Mg Tablet PO 08/15/24 20:59 HS [facility] Carvedilol 25 mg 07/16/24 21:00 07/17/24 08:12 Carvedilol 12.5 Mg Tablet PO 08/15/24 20:59 25 mg BID MICAH Administration Citric Acid/Sodium Citrate 30 ml 07/16/24 22:00 07/17/24 05:34 Citric Acid/Sodium Citr 15 Ml Udc (Bicitra) PO 08/15/24 21:59 30 ml TID MICAH Administration Clopidogrel Bisulfate 75 mg 07/17/24 09:00 07/17/24 08:14 Clopidogrel Bisulfate 75 Mg Tablet PO 08/16/24 08:59 75 mg QDAY MICAH Administration Doxycycline Hyclate 100 mg 07/16/24 21:00 07/17/24 08:12 Doxycycline 100 Mg Tablet PO 07/23/24 20:59 100 mg BID MICAH Administration Ferrous Sulfate 325 mg 07/17/24 09:00 07/17/24 08:14 Ferrous Sulf 325 Mg Tablet PO 08/16/24 08:59 325 mg Q48HR@2100 MICAH Administration Heparin Sodium (Porcine) 5,000 unit 07/17/24 21:00 Heparin Sod Inj 5000 Unit/Ml Vial SC 07/30/24 15:59 Q12HR MICAH Ceftriaxone Sodium 1,000 mg/ 50 mls @ 100 mls/hr 07/16/24 16:07 07/17/24 08:12 Sodium Chloride IV 07/23/24 16:06 100 mls/hr QDAY MICAH Administration Sodium Chloride 1,000 mls @ 100 mls/hr 07/17/24 08:40 Ns IV 08/16/24 08:36 .Q10H MICAH Ondansetron HCl 4 mg 07/16/24 15:48 Ondansetron Inj 2 Mg/Ml Inj 2 Ml IV 08/15/24 15:47 Q6H PRN NAUSEA OR VOMITING Protocol Sertraline HCl 25 mg 07/16/24 21:00 07/16/24 20:51 Sertraline Hcl 25 Mg Tablet PO 08/15/24 20:59 25 mg HS MICAH Administration Sevelamer Carbonate 800 mg 07/17/24 08:00 07/17/24 08:14 Sevelamer Carbonate 800 Mg Tablet PO 08/16/24 07:59 800 mg TIDWM MICAH Administration Tamsulosin HCl 0.4 mg 07/17/24 09:00 07/17/24 08:14 Tamsulosin Hcl 0.4 Mg Capsule PO 08/16/24 08:59 0.4 mg DAILY MICAH Administration Plan The patient is a 54-year-old male with significant past medical history of HFpEF with LVEF 50% on May 2024, moderate to severe pulmonary hypertension RVSP around 60 mmHg, methamphetamine use, cirrhosis of liver, Weed type B aortic dissection who was sent by his product management manager Dr. Stubbs and commercial maintenance technician Dr. Hernandez after being found to have his creatinine 6.2. Nephrology consultation was done for LATASHA on CKD stage III A. #LATASHA on CKD stage III A, improving Likely secondary to aggressive diuresis. The patient was started on oral Bumex 1 mg twice daily along with Aldactone, and he continued the medications even after receiving probable dry weight. He has been having decreased appetite, and has been having poor oral intake for past week. Patient's baseline creatinine is 1.6-1.8, baseline GFR in 50s. Presented with creatinine of 6.2 and GFR 10. 07/17/2024: Creatinine 5.4, GFR 12, BUN 131 -Patient received 1 L IV normal saline bolus fluid in the ED -Continue on IV maintenance fluid normal saline 100 cc/h -Monitor ins and outs strictly -Encourage oral rehydration with water or fluid -Avoid nephrotoxic drugs -Renally dose medications -Renal diet -Renal panel daily in the a.m. 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 07/17/2024: Sodium 130, potassium 3.7 and bicarb 14.5 -Bicitra 30 mL 3 times daily -IV sodium bicarbonate 50 mL x 1 -Renal panel daily in the a.m. -As above #Moderate hypovolemic hyperosmolar hyponatremia, improving Likely multifactorial secondary to RTA, aggressive diuretic use and poor oral intake 07/17/2024: Sodium 130 -Patient received 1 L of IV normal saline bolus in the ED -Started on maintenance normal saline 100 cc/h -Continue to monitor sodium level daily in the a.m. #Hyperphosphatemia Secondary to CKD further complicated by LATASHA -Sevelamer 800 Mg 3 times daily with meals -Monitor phosphorus level daily in the a.m. #Anemia Likely secondary to CKD, could be multifactorial with iron deficiency anemia in the setting of poor oral intake Hg 11.2, MCV 88, iron 62, TIBC 204, ferritin 532 -Started the patient on oral ferrous sulfate 325 Mg every other day #Community-acquired pneumonia #Hx of Weed B Aortic dissection, stable #Hx of HFrEF, w/ moderate RV dysfunction, EF ~50%, and dilation of RV and RA #History of moderate to severe pulmonary hypertension. 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 The patient's management plan was discussed with my attending physician MD Chauncey Brothers MD, PGY2 Attending Provider Attestation/Addendum Patient seen and examined with resident physician Dr. Zambrano. Note reviewed, agree with findings and recommendations. Patient well-known to me from my CKD clinic. In fact I sent him to the hospital with significant azotemia on labs. Patient with severe prerenal azotemia secondary to diuretics. His last ejection fraction was 50%. Clinically looks extremely dehydrated. Continue with the fluids. No need for emergency dialysis. Did discuss with patient and mom at bedside regarding need for renal replacement therapy if no improvement in azotemia. Agreed. Continue with the fluids today also. Clinically patient looks still dehydrated. Replace electrolytes. Thank you Cleve for allowing me to participate in the care of Lex
[2024-07-17 11:42] LABS: Flow Cytometry* See Sep Rpt
[2024-07-17 14:26] LABS: Albumin, Serum 2.9 gm/dL (3.5-5.0); Anion Gap 12 (7-16); Calcium 7.9 mg/dL (8.3-10.6); Calcium (Corrected) 8.8 mg/dL (8.5-10.1); Carbon Dioxide 17.3 mMol/L (20.0-31.0); Chloride 103 mMol/L (98-107); Creatinine (Component) 4.8 mg/dL (0.6-1.3); Glucose 97 mg/dL (74-106); Phosphorous 6.9 mg/dL (2.4-5.1); Potassium 3.6 mMol/L (3.4-5.1); Sodium 132 mMol/L (136-145); eGFR 14 See Note
[2024-07-17] MEDS: SODIUM CHLORIDE 0.9% 1000 ML 1,000 ML 100 ML IV (14:27)
[2024-07-17 14:34] LABS: BUN/Creatinine Ratio 29 Ratio (12-20); Osmolality,Calculated 308 (275-295)
[2024-07-17 14:36] LABS: Blood Urea Nitrogen 137 mg/dL (9-23)
[2024-07-17 17:19] LABS: Albumin, Serum 3.2 gm/dL (3.5-5.0); Anion Gap 5 (7-16); BUN/Creatinine Ratio 29 Ratio (12-20); Calcium 8.4 mg/dL (8.3-10.6); Carbon Dioxide 18.6 mMol/L (20.0-31.0); Chloride 107 mMol/L (98-107); Creatinine (Component) 4.2 mg/dL (0.6-1.3); Estimated Creatinine Clearance 21.7 mL/min (>60); Glucose 85 mg/dL (74-106); Osmolality,Calculated 300 (275-295); Phosphorous 6.1 mg/dL (2.4-5.1); Potassium 3.2 mMol/L (3.4-5.1); Sodium 131 mMol/L (136-145); eGFR 16 See Note
[2024-07-17 17:42] LABS: Blood Urea Nitrogen 121 mg/dL (9-23)
[2024-07-17] MEDS: ATORVASTATIN CALCIUM 20 MG TABLET PO (20:51)
[2024-07-17] MEDS: SERTRALINE HCL 25 MG TABLET PO (20:52)
[2024-07-17] MEDS: POTASSIUM CHLORIDE 20 mEq TABCR 40 MEQ PO (21:56)
[2024-07-18] VITALS (11 sets, daily range): BP systolic 117–170; BP diastolic 60–88; PULSE 57–85; RESP 16–19; TEMP 36.2–37.2; O2SAT 90–95
[2024-07-18] MEDS: SODIUM CHLORIDE 0.9% 1000 ML 1,000 ML 100 ML IV ×3 (00:04→20:04)
[2024-07-18] MEDS: CITRIC ACID/SODIUM CITR 15 ML UDC (BICITRA) 30 ML PO ×3 (05:29→21:59)
[2024-07-18 06:01] LABS: Basophils # (Auto) 0.1 Thou/mm3 (0.0-0.2); Basophils % (Auto) 1 % (0-2.5); Eosinophils # (Auto) 0.4 Thou/mm3 (0.0-0.5); Eosinophils % (Auto) 2 % (0-10); Hematocrit 31.4 % (41.0-53.0); Hemoglobin 11.4 g/dL (13.5-16.0); Immature Granulocytes % (Auto) 21 % (0-0); Lymphocytes # (Auto) 2.3 Thou/mm3 (1.0-4.8); Lymphocytes % (Auto) 11 % (10-50); Mean Corpuscular HGB Conc 36.3 g/dl (31.0-37.0); Mean Corpuscular Hemoglobin 31.6 pg (25.0-35.0); Mean Corpuscular Volume 87 fL (80-100); Monocytes # (Auto) 1.3 Thou/mm3 (0.0-0.8); Monocytes % (Auto) 6 % (0-12); Neutrophils # (Auto) 12.1 Thou/mm3 (1.8-7.7); Neutrophils % (Auto) 59 % (37-80); Nucleated Red Blood Cell % 0 /100 WBC (0); Platelet Count 347 Thou/mm3 (140-440); RDW Standard Deviation 45.6 fL (35.1-43.9); Red Blood Count 3.61 Miln/mm3 (4.50-5.90); White Blood Count 20.4 Thou/mm3 (3.8-10.6)
[2024-07-18 06:40] LABS: Alanine Aminotransferase 14 U/L (10-49); Alkaline Phosphatase 109 U/L (46-116); Anion Gap 12 (7-16); Aspartate Amino Transferase 29 U/L (0-34); BUN/Creatinine Ratio 38 Ratio (12-20); Bilirubin,Total 1.3 mg/dL (0.3-1.2); Calcium 8.3 mg/dL (8.3-10.6); Calcium (Corrected) 9.1 mg/dL (8.5-10.1); Carbon Dioxide 17.7 mMol/L (20.0-31.0); Chloride 107 mMol/L (98-107); Estimated Creatinine Clearance 30.3 mL/min (>60); Glucose 78 mg/dL (74-106); Osmolality,Calculated 309 (275-295); Phosphorous 4.5 mg/dL (2.4-5.1); Potassium 4.4 mMol/L (3.4-5.1); Sodium 137 mMol/L (136-145); eGFR 24 See Note
[2024-07-18 06:52] LABS: Blood Urea Nitrogen 114 mg/dL (9-23)
[2024-07-18] MEDS: cefTRIAXone 1,000 MG in SODIUM CHLORIDE 0.9% (P) 50 ML 100 MG IV (08:29)
[2024-07-18] MEDS: SEVELAMER CARBONATE 800 MG TABLET PO ×3 (08:31→18:05)
[2024-07-18] MEDS: ASPIRIN EC 81 MG TABEC PO (08:31)
[2024-07-18] MEDS: DOXYCYCLINE 100 MG TABLET PO ×2 (08:31→20:23)
[2024-07-18] MEDS: carVEDILOL 12.5 MG TABLET 25 MG PO ×2 (08:31→20:22)
[2024-07-18] MEDS: TAMSULOSIN HCL 0.4 MG CAPSULE PO (08:32)
[2024-07-18] MEDS: CLOPIDOGREL BISULFATE 75 MG TABLET PO (08:32)
[2024-07-18] MEDS: HEPARIN SOD INJ 5000 UNIT/ML VIAL SC ×2 (08:37→20:24)
[2024-07-18] MEDS: NIFEdipine XL 30 MG TABCR PO (10:03)
--- NOTE | 2024-07-18 13:54 | ESPR_ITS ---
Documentation for date of: 07/18/24 Subjective Subjective Interval history: 07/17/2024: Pt examined at bedside today. No acute overnight events. Patient reports he is doing well. He says he feels less thirsty and dry compared to yesterday. He said he slept well. Not experiencing chest pain or shortness of breath. Blood pressure 140/68 today. White count 20, hemoglobin 11.6, sodium 130, potassium 3.7, bicarb 14.5, BUN/creatinine 131 5.4, glucose 85, phosphorus 7.4 AST ALT 25 and 14 respectively. No other complaints at this time. 07/18/2024: Pt examined at bedside today. No acute overnight events. Pt reports he is doing well. He has been adhering to his fluid restriction. He said that he slept well and is not experiencing any chest pain or SOB at this time. WBC 20, Hgb 11.4, BUN 114, Cr 3.0, HCO3- 18, phos 4.5, Mg 2.0, T bili 1.3. Exam Vital Signs Temp Pulse Resp BP Pulse Ox O2 Del Method O2 Flow Rate 97.1 F 85 16 117/60 95 Nasal Cannula 4 07/18/24 12:00 07/18/24 12:00 07/18/24 12:00 07/18/24 12:00 07/18/24 12:00 07/18/24 12:07/18/24 12:00 Narrative Exam General: AAOx3, NAD, pt appears comfortable HEENT: Dry mucous membranes, conjunctiva clear, EOMI, PERRLA, okay dentition Cardiovascular: Pansystolic murmur heard, radial pulses +2 bilat, has some tattoos on chest, RRR Pulmonary: Some possible crackles heard in LLB, cough present GI: No tenderness to light or deep palpitation, no guarding, rigidity, rebound tenderness or distension Extremities: No presence of trace or pitting edema in lower extremities bilaterally, dorsalis pedis pulses +2 bilaterally Neuro: AAOx3, no focal motor or sensory deficits in the UE or LE bilat Psych: Cooperative, Objective Labs 07/19/24 05:00 07/19/24 08:27 Labs: Laboratory Results - last 24 hr 07/17/24 07/17/24 07/18/24 11:17 16:47 04:53 WBC RBC Hgb Hct MCV MCH MCHC RDW Std Deviation Plt Count Neut % (Auto) Lymph % (Auto) [place] % (Auto) Eos % (Auto) Baso % (Auto) Neut # (Auto) Lymph # (Auto) [place] # (Auto) Eos # (Auto) Baso # (Auto) Immature Gran # (Auto) Absolute Nucleated RBC Immature Gran % Nucleated RBC % Sodium 132 L 131 L Potassium 3.6 3.2 L Chloride 103 107 Carbon Dioxide 17.3 L 18.6 L Anion Gap 12 5 L BUN 137 H* 121 H* Creatinine 4.8 H* D 4.2 H* D Estim Creat Clear Calc 19.0 L 21.7 L eGFR 14 L* 16 L BUN/Creatinine Ratio 29 H 29 H Glucose 97 85 Calculated Osmolality 308 H 300 H Calcium 7.9 L 8.4 Corrected Calcium 8.8 9.0 Phosphorus 6.9 H 6.1 H Magnesium Total Bilirubin AST ALT Alkaline Phosphatase Total Protein Albumin 2.9 L 3.2 L Globulin Albumin/Globulin Ratio Ur Random Urea Nitrogn 844.0 07/18/24 05:05 WBC 20.4 H RBC 3.61 L Hgb 11.4 L Hct 31.4 L MCV 87 MCH 31.6 MCHC 36.3 RDW Std Deviation 45.6 H Plt Count 347 D Neut % (Auto) 59 Lymph % (Auto) 11 [place] % (Auto) 6 Eos % (Auto) 2 Baso % (Auto) 1 Neut # (Auto) 12.1 H Lymph # (Auto) 2.3 [place] # (Auto) 1.3 H Eos # (Auto) 0.4 Baso # (Auto) 0.1 Immature Gran # (Auto) 4.20 H Absolute Nucleated RBC 0.00 Immature Gran % 21 H Nucleated RBC % 0 Sodium 137 Potassium 4.4 D Chloride 107 Carbon Dioxide 17.7 L Anion Gap 12 BUN 114 H* Creatinine 3.0 H D Estim Creat Clear Calc 30.3 L eGFR 24 L BUN/Creatinine Ratio 38 H Glucose 78 Calculated Osmolality 309 H Calcium 8.3 Corrected Calcium 9.1 Phosphorus 4.5 Magnesium 2.0 Total Bilirubin 1.3 H AST 29 ALT 14 Alkaline Phosphatase 109 Total Protein 6.0 Albumin 3.0 L Globulin 3.0 Albumin/Globulin Ratio 1.0 L Ur Random Urea Nitrogn Quality Measures Quality Measures none Assessment & Plan Assessment Current Active Medications: Generic Name Dose Route Start Last Admin Trade Name Meme PRN Reason Stop Dose Admin Aspirin 81 mg 07/17/24 09:00 07/18/24 08:31 Aspirin Ec 81 Mg Tabec PO 08/16/24 08:59 81 mg QDAY MICAH Administration Atorvastatin Calcium 40 mg 07/18/24 21:00 Atorvastatin Calcium 20 Mg Tablet PO 08/17/24 20:59 HS MICAH Carvedilol 25 mg 07/16/24 21:00 07/18/24 08:31 Carvedilol 12.5 Mg Tablet PO 08/15/24 20:59 25 mg BID MICAH Administration Citric Acid/Sodium Citrate 30 ml 07/16/24 22:00 07/18/24 05:29 Citric Acid/Sodium Citr 15 Ml Udc (Bicitra) PO 08/15/24 21:59 30 ml TID MICAH Administration Clopidogrel Bisulfate 75 mg 07/17/24 09:00 07/18/24 08:32 Clopidogrel Bisulfate 75 Mg Tablet PO 08/16/24 08:59 75 mg QDAY MICAH Administration Doxycycline Hyclate 100 mg 07/16/24 21:00 07/18/24 08:31 Doxycycline 100 Mg Tablet PO 07/23/24 20:59 100 mg BID MICAH Administration Ferrous Sulfate 325 mg 07/17/24 09:00 07/17/24 20:52 Ferrous Sulf 325 Mg Tablet PO 08/16/24 08:59 325 mg Q48HR@2100 MICAH Administration Heparin Sodium (Porcine) 5,000 unit 07/17/24 21:00 07/18/24 08:37 Heparin Sod Inj 5000 Unit/Ml Vial SC 07/30/24 15:59 5,000 unit Q12HR MICAH Administration Ceftriaxone Sodium 1,000 mg/ 50 mls @ 100 mls/hr 07/16/24 16:07 07/18/24 08:29 Sodium Chloride IV 07/23/24 16:06 100 mls/hr QDAY MICAH Administration Sodium Chloride 1,000 mls @ 100 mls/hr 07/17/24 08:40 07/18/24 10:09 Ns IV 08/16/24 08:36 100 mls/hr .Q10H MICAH Administration Nifedipine 30 mg 07/18/24 09:45 07/18/24 10:03 Nifedipine Xl 30 Mg Tabcr PO 08/17/24 09:44 30 mg QDAY MICAH Administration Ondansetron HCl 4 mg 07/16/24 15:48 Ondansetron Inj 2 Mg/Ml Inj 2 Ml IV 08/15/24 15:47 Q6H PRN NAUSEA OR VOMITING Protocol Sertraline HCl 25 mg 07/16/24 21:00 07/17/24 20:52 Sertraline Hcl 25 Mg Tablet PO 08/15/24 20:59 25 mg HS MICAH Administration Sevelamer Carbonate 800 mg 07/17/24 08:00 07/18/24 12:07 Sevelamer Carbonate 800 Mg Tablet PO 08/16/24 07:59 800 mg TIDWM MICAH Administration Tamsulosin HCl 0.4 mg 07/17/24 09:00 07/18/24 08:32 Tamsulosin Hcl 0.4 Mg Capsule PO 08/16/24 08:59 0.4 mg DAILY MICAH Administration Plan Assessment Lex is a 54 y/o male with PMHx HFpEF EF 60%, HTN, CKD, methamphetamine use, cirrhosis (complicated with ascities in the past), Sean type B aortic dissection (stable, has been referred to vascular surgery) who is admitted for acute renal failure. #Acute renal failure, improving #Oliguria, improving #Prerenal Azotemia #Hx of CKD #Metabolic acidosis #Electrolyte derangements Patient has never had acute renal failure is not a dialysis patient Patient does have poor oral intake lately He does say that he was on Bumex 2 mg for about a month or so and he was sent to me to ED after he was seen that his creatinine was elevated to 6.2 and his BUN was 132 Patient has not been able to put out good output per patient Phosphorus 7.3 today Pt most likely in renal failure at this time due to Bumex prior to admission FeUrea: 8.1 -> Prerenal Cr 3.0 today, BUN 114. BUN is taking longer time to correct likely related to dehydration Plan: ?Nephrology consulted, appreciate recs ?Continue maintenance NS 100 cc/hr ?Holding ZOE/ARB ?Avoid any nephrotoxic agents ?Renally dose medicines ?Sevelamer 800 mg TID ?Fluid restriction 3 L ?Bicitra 30 mL TID #Community-acquired pneumonia Patient does not meet sepsis criteria, however has been feeling sick for some time Significant left base pneumonia seen on chest x-ray COVID and flu negative BC no growth after one day MRSA negative Plan: ?Continue with Rocephin and Doxy () #Hx of Sean B Aortic dissection, stable #Hx of HFrEF, w/ moderate RV dysfunction, EF ~50%, and dilation of RV and RA #History of moderate to severe pulmonary hypertension. #Hx of CAD #NSTEMI type II, likely related to demand ischemia, resolved CT chest abdomen and pelvis done in past May and showed Linden type B aortic dissection beginning distal to the left subclavian artery and extending into the upper abdomen but ending prior to the origin of celiac, superior mesenteric artery axis Pt will need very close management of blood pressure Pt to see vascular surgery outpatient, however has not done so yet and will need to be referred Troponin 0.049 peaked Previous Echo done in May 2024 shows Small LV size, moderate LVH with low normal ejection fraction at around 50% Flattened interatrial septum in both systole and diastole indicating both RV pressure and volume overload. Severely dilated right ventricle with moderate RV systolic dysfunction and massively dilated right atrium. Moderate to severe TR and estimated RVSP around 60 mmHg indicating moderate to severe pulmonary hypertension Trace MR and dilated IVC Plan: ?Resuming GDMT therapy including Coreg -Added Nifedipine 30 mg qd -Will consider spirnolactone if there is BP room for patient ?Strict WES's ?Fluid restriction 3000 cc ?Continue with aspirin #Anemia of chronic disease Ferritin elevated, MCV ~86, Hgb chronically in 11s PBS shows 25% immature granulocytes Recommend for further testing per pathologist Could be component of malignancy including leukemia, however could be related to kidney disease CBC shows elevated granulocytes in 4% Plan: ?F/u Flow cytometry ?F/u BCR-ALB1 PCR ?Trend with CBC #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 bili of 1.9, has been elevated in the past before Plan: ? Trend with CMP #History of BPH Plan: ? Continue with Flomax 0.4 mg #Polysubstance use Patient denies history of drug use Chart review showed previous use of meth, THC and alcohol Plan: ?Will consider referral to social science professor #Health Maintenance Disposition: Telemetry DVT prophylaxis: Heparin GI prophylaxis: None indicated at this time Diet: Renal CODE STATUS: Full Patient seen and care discussed with my senior resident, Dr. Marin, and my attending physician, Dr. Jennyfer Rob, PGY-1 Attending Provider Attestation/Addendum I reviewed labs, imaging, EKG, home medications and prior available records. Face to face evaluation was performed by me. I have personally examined the patient and discussed assessment and plan with the IM team. I reviewed the resident note and agree with the plan with exceptions as below. LATASHA on CKD HFpEF EF 60% Leukocytosis, unspecific Non-STEMI, likely demand ischemia Hyponatremia Left lower lobe pneumonia Continue gentle IV hydration Held diuretics Monitor kidney function: Creatinine slightly improved. Avoid nephrotoxins. Renally dosed medications Consulted nephrology: Recommended to continue IV hydration Ordered peripheral blood smear: Showed significant left shift. Concern for leukemia. Ordered flow cytometry and BCR ABL 1 mutation detection test. Discussed the results with the pathologist who will follow. Continue to monitor CBC. Follow up as outpatient for the cytometry and mutation detection tests. Trend troponin: Peaked Monitor sodium level and avoid rapid correction: Sodium improved Started IV ceftriaxone and doxycycline Started Coreg for the hypertension
[2024-07-18 14:44] LABS: Band Neutrophils (Manual) 5 % (0-6); Eosinophils (Manual) 2 % (0-4); Lymphocytes (Manual) 17 % (20-44); Metamyelocytes (Manual) 2 % (0-0); Monocytes (Manual) 11 % (2-9); Neutrophils (Manual) 63 % (50-70)
[2024-07-18 17:57] LABS: Albumin, Serum 3.1 gm/dL (3.5-5.0); Anion Gap 9 (7-16); BUN/Creatinine Ratio 38 Ratio (12-20); Blood Urea Nitrogen 87 mg/dL (9-23); Calcium 8.4 mg/dL (8.3-10.6); Calcium (Corrected) 9.1 mg/dL (8.5-10.1); Carbon Dioxide 19.7 mMol/L (20.0-31.0); Chloride 110 mMol/L (98-107); Creatinine (Component) 2.3 mg/dL (0.6-1.3); Estimated Creatinine Clearance 39.6 mL/min (>60); Glucose 97 mg/dL (74-106); Osmolality,Calculated 304 (275-295); Phosphorous 3.6 mg/dL (2.4-5.1); Potassium 3.8 mMol/L (3.4-5.1); Sodium 139 mMol/L (136-145); eGFR 33 See Note
--- NOTE | 2024-07-18 19:31 | PD.RESPRO ---
Documentation for date of: 07/18/24 Subjective Subjective Interval history: The patient is a 54-year-old male with significant past medical history of HFpEF with LVEF 50% on May 2024, moderate to severe pulmonary hypertension RVSP around 60 mmHg, methamphetamine use, cirrhosis of liver, Sean type B aortic dissection who was sent by his boilermaker mechanic Dr. Stubbs and tongue and groove machine feeder Dr. Hernandez after being found to have his creatinine 6.2. He was recently discharged from hospital on 06/01/2024 on Bumex 1 mg twice daily along with Aldactone, as he had gained around 30 pounds before coming to hospital then. However, patient continued Bumex 1 mg twice daily along with Aldactone even after gaining his probable dry weight. He reported that recently he has been having low appetite, and his urine output has gone down. He has been using home oxygen more often. He denied any headache, lightheadedness, chest pain, any abdominal pain, admitted occasional diarrhea, and denied any lower limb edema. He denied any fever or chills, nausea or vomiting. In the ED his vitals were significant for blood pressure 118/64, pulse 60, RR 22, saturating 93% on 3 L NC. Labs are significant for white count 19.3, hemoglobin 11.2, PT 13.4, sodium 127, potassium 3.6, bicarb 15, BUN 30, creatinine 6.2, GFR 9, osmolality 297, total bilirubin 1.9, AST 44, troponin 0.049, BNP 1642, EKG significant for sinus bradycardia, left atrial enlargement with right axis deviation, CXR did not reveal any pulmonary edema. Nephrology consultation was done for ALTASHA on CKD stage III A, was recommended to give 1 L of IV normal saline bolus, and then maintenance IV normal saline 100 cc/h. 07/17/2024: The patient was interviewed and examined at the bedside this morning. He reported doing a little better. His blood pressure was 150/69, saturating 93% on 2 L NC. White count mildly trended up to 20.0, hemoglobin 11.6, sodium 130, bicarb trended down to 14.5, BUN trended up to 131, creatinine trended down to 5.4, and EGFR improved to 12. Phosphorus has been worsening to 7.3. Iron 62, TIBC 204, iron binding 142, ferritin 532, likely anemia of chronic disease may be multifactorial with iron deficiency in the setting of low p.o. intake. 07/18/2024: The patient was interviewed and examined at the bedside again this morning. He reported doing much better. His blood pressure were stable with mild hypertension, saturating 91% on 4 L NC. WBC 20.4, hemoglobin 11.4, chloride 110, bicarb 19.7, renal panel improving with BUN 87, creatinine 2.3 and EGFR 33. Total bilirubin trended down to 1.3. We will continue with NS 100cc/hr and monitor renal panel daily. Exam Vital Signs Temp Pulse Resp BP Pulse Ox O2 Del Method O2 Flow Rate 97.4 F 59 L 18 165/78 H 91 L Nasal Cannula 4 07/18/24 16:00 07/18/24 16:00 07/18/24 16:00 07/18/24 16:07/18/24 16:00 07/18/24 12:00 07/18/24 12:00 Narrative Exam General: Ill appearing, cooperative gentleman, no acute distress, Alert and Oriented x 3 HEENT: Moist mucous membranes, oropharynx clear Neck: Supple, No masses, No JVD CVS: S1S2 Regular rate and rhythm, No murmurs, rubs or gallops, tattoos over chest Lungs: Clear to auscultation with no accessory use, no wheeze no rhonchi Abd: Soft, NT/ND, +BS, no organomegaly Ext: No edema, warm and well perfused Skin: No rash Psych: Appropriate mood and affect Objective Labs 07/19/24 05:00 07/19/24 08:27 Labs: Laboratory Results - last 24 hr 07/18/24 07/18/24 07/18/24 04:53 05:05 17:02 WBC 20.4 H RBC 3.61 L Hgb 11.4 L Hct 31.4 L MCV 87 MCH 31.6 MCHC 36.3 RDW Std Deviation 45.6 H Plt Count 347 D Neut % (Auto) 59 Lymph % (Auto) 11 Wayne % (Auto) 6 Eos % (Auto) 2 Baso % (Auto) 1 Neut # (Auto) 12.1 H Lymph # (Auto) 2.3 Wayne # (Auto) 1.3 H Eos # (Auto) 0.4 Baso # (Auto) 0.1 Immature Gran # (Auto) 4.20 H Absolute Nucleated RBC 0.00 Immature Gran % 21 H Neutrophils % (Manual) 63 Monocytes % (Manual) 11 H Eosinophils % (Manual) 2 Metamyelocytes % 2 H Nucleated RBC % 0 Band Neutrophils 5 Lymphocytes (Manual) 17 L Sodium 137 139 Potassium 4.4 D 3.8 D Chloride 107 110 H Carbon Dioxide 17.7 L 19.7 L Anion Gap 12 9 BUN 114 H* 87 H Creatinine 3.0 H D 2.3 H D Estim Creat Clear Calc 30.3 L 39.6 L eGFR 24 L 33 L BUN/Creatinine Ratio 38 H 38 H Glucose 78 97 Calculated Osmolality 309 H 304 H Calcium 8.3 8.4 Corrected Calcium 9.1 9.1 Phosphorus 4.5 3.6 Magnesium 2.0 Total Bilirubin 1.3 H AST 29 ALT 14 Alkaline Phosphatase 109 Total Protein 6.0 Albumin 3.0 L 3.1 L Globulin 3.0 Albumin/Globulin Ratio 1.0 L Ur Random Urea Nitrogn 844.0 Quality Measures Quality Measures none Assessment & Plan Assessment Current Active Medications: Generic Name Dose Route Start Last Admin Trade Name Freq PRN Reason Stop Dose Admin Aspirin 81 mg 07/17/24 09:00 07/18/24 08:31 Aspirin Ec 81 Mg Tabec PO 08/16/24 08:59 81 mg QDAY MICAH Administration Atorvastatin Calcium 40 mg 07/18/24 21:00 Atorvastatin Calcium 20 Mg Tablet PO 08/17/24 20:59 HS MICAH Carvedilol 25 mg 07/16/24 21:00 07/18/24 08:31 Carvedilol 12.5 Mg Tablet PO 08/15/24 20:59 25 mg BID MICAH Administration Citric Acid/Sodium Citrate 30 ml 07/16/24 22:00 07/18/24 14:14 Citric Acid/Sodium Citr 15 Ml Udc (Bicitra) PO 08/15/24 21:59 30 ml TID MICAH Administration Clopidogrel Bisulfate 75 mg 07/17/24 09:00 07/18/24 08:32 Clopidogrel Bisulfate 75 Mg Tablet PO 08/16/24 08:59 75 mg QDAY MICAH Administration Doxycycline Hyclate 100 mg 07/16/24 21:00 07/18/24 08:31 Doxycycline 100 Mg Tablet PO 07/23/24 20:59 100 mg BID MICAH Administration Ferrous Sulfate 325 mg 07/17/24 09:00 07/17/24 20:52 Ferrous Sulf 325 Mg Tablet PO 08/16/24 08:59 325 mg Q48HR@2100 MICAH Administration Heparin Sodium (Porcine) 5,000 unit 07/17/24 21:00 07/18/24 08:37 Heparin Sod Inj 5000 Unit/Ml Vial SC 07/30/24 15:59 5,000 unit Q12HR MICAH Administration Ceftriaxone Sodium 1,000 mg/ 50 mls @ 100 mls/hr 07/16/24 16:07 07/18/24 08:29 Sodium Chloride IV 07/23/24 16:06 100 mls/hr QDAY MICAH Administration Sodium Chloride 1,000 mls @ 100 mls/hr 07/17/24 08:40 07/18/24 10:09 Ns IV 08/16/24 08:36 100 mls/hr .Q10H MICAH Administration Nifedipine 30 mg 07/18/24 09:45 07/18/24 10:03 Nifedipine Xl 30 Mg Tabcr PO 08/17/24 09:44 30 mg QDAY MICAH Administration Ondansetron HCl 4 mg 07/16/24 15:48 Ondansetron Inj 2 Mg/Ml Inj 2 Ml IV 08/15/24 15:47 Q6H PRN NAUSEA OR VOMITING Protocol Sertraline HCl 25 mg 07/16/24 21:00 07/17/24 20:52 Sertraline Hcl 25 Mg Tablet PO 08/15/24 20:59 25 mg HS MICAH Administration Sevelamer Carbonate 800 mg 07/17/24 08:00 07/18/24 18:05 Sevelamer Carbonate 800 Mg Tablet PO 08/16/24 07:59 800 mg TIDWM MICAH Administration Tamsulosin HCl 0.4 mg 07/17/24 09:00 07/18/24 08:32 Tamsulosin Hcl 0.4 Mg Capsule PO 08/16/24 08:59 0.4 mg DAILY MIACH Administration Plan The patient is a 54-year-old male with significant past medical history of HFpEF with LVEF 50% on May 2024, moderate to severe pulmonary hypertension RVSP around 60 mmHg, methamphetamine use, cirrhosis of liver, [place] type B aortic dissection who was sent by his boilermaker mechanic Dr. Stubbs and tongue and groove machine feeder Dr. Hernandez after being found to have his creatinine 6.2. Nephrology consultation was done for LATASHA on CKD stage III A. #LATASHA on CKD stage III A, improving Likely secondary to aggressive diuresis. The patient was started on oral Bumex 1 mg twice daily along with Aldactone, and he continued the medications even after receiving probable dry weight. He has been having decreased appetite, and has been having poor oral intake for past week. Patient's baseline creatinine is 1.6-1.8, baseline GFR in 50s. Presented with creatinine of 6.2 and GFR 10. 07/17/2024: Creatinine 5.4, GFR 12, BUN 131 07/18/2024: BUN 87, creatinine 2.3, GFR 33 -Patient received 1 L IV normal saline bolus fluid in the ED -Continue on IV maintenance fluid normal saline 100 cc/h -Monitor ins and outs strictly -Encourage oral rehydration with water or fluid -Avoid nephrotoxic drugs -Renally dose medications -Renal diet -Renal panel daily in the a.m. 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 07/17/2024: Sodium 130, potassium 3.7 and bicarb 14.5 -Bicitra 30 mL 3 times daily -IV sodium bicarbonate 50 mL x 1 -Renal panel daily in the a.m. -As above #Moderate hypovolemic hyperosmolar hyponatremia, improving Likely multifactorial secondary to RTA, aggressive diuretic use and poor oral intake 07/17/2024: Sodium 130 -Patient received 1 L of IV normal saline bolus in the ED -Started on maintenance normal saline 100 cc/h -Continue to monitor sodium level daily in the a.m. #Hyperphosphatemia Secondary to CKD further complicated by LATASHA -Sevelamer 800 Mg 3 times daily with meals -Monitor phosphorus level daily in the a.m. #Anemia Likely secondary to CKD, could be multifactorial with iron deficiency anemia in the setting of poor oral intake Hg 11.2, MCV 88, iron 62, TIBC 204, ferritin 532 -Started the patient on oral ferrous sulfate 325 Mg every other day #Community-acquired pneumonia #Hx of [place] B Aortic dissection, stable #Hx of HFrEF, w/ moderate RV dysfunction, EF ~50%, and dilation of RV and RA #History of moderate to severe pulmonary hypertension. 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 The patient's management plan was discussed with my attending physician MD Chauncey Brothers MD, PGY2 Attending Provider Attestation/Addendum Patient seen and examined with resident physician Dr. Zambrano. Note reviewed, agree with findings and recommendations. Patient well-known to me from my CKD clinic. In fact I sent him to the hospital with significant azotemia on labs. Patient with severe prerenal azotemia secondary to diuretics. His last ejection fraction was 50%. Clinically looks extremely dehydrated. Continue with the fluids. No need for emergency dialysis. Did discuss with patient and mom at bedside regarding need for renal replacement therapy if no improvement in azotemia. Agreed. Continue with the fluids today also. Clinically patient looks still dehydrated. Replace electrolytes. 07/18/2024 BUN and creatinine much better. Clinically still looks rather hypovolemic. Continue with fluids today and discontinue her current bag. Plan of care discussed with Hanane at bedside.
[2024-07-18] MEDS: SERTRALINE HCL 25 MG TABLET PO (20:23)
[2024-07-18] MEDS: ATORVASTATIN CALCIUM 20 MG TABLET 40 MG PO (20:23)
[2024-07-19] VITALS (9 sets, daily range): BP systolic 161–174; BP diastolic 79–85; PULSE 59–87; RESP 16–18; TEMP 36.2–36.9; O2SAT 92–95; BMI 23.0
[2024-07-19 01:52] LABS: Albumin, Serum 3.2 gm/dL (3.5-5.0); Anion Gap 8 (7-16); BUN/Creatinine Ratio 38 Ratio (12-20); Blood Urea Nitrogen 73 mg/dL (9-23); Calcium 8.5 mg/dL (8.3-10.6); Calcium (Corrected) 9.1 mg/dL (8.5-10.1); Carbon Dioxide 20.5 mMol/L (20.0-31.0); Chloride 112 mMol/L (98-107); Creatinine (Component) 1.9 mg/dL (0.6-1.3); Estimated Creatinine Clearance 47.9 mL/min (>60); Glucose 97 mg/dL (74-106); Osmolality,Calculated 300 (275-295); Phosphorous 3.2 mg/dL (2.4-5.1); Potassium 3.9 mMol/L (3.4-5.1); Sodium 140 mMol/L (136-145); eGFR 41 See Note
[2024-07-19] MEDS: CITRIC ACID/SODIUM CITR 15 ML UDC (BICITRA) 30 ML PO (05:27)
[2024-07-19] MEDS: SODIUM CHLORIDE 0.9% 1000 ML 1,000 ML 100 ML IV (05:28)
[2024-07-19 05:41] LABS: Basophils # (Auto) 0.1 Thou/mm3 (0.0-0.2); Basophils % (Auto) 1 % (0-2.5); Eosinophils # (Auto) 0.4 Thou/mm3 (0.0-0.5); Eosinophils % (Auto) 2 % (0-10); Hematocrit 29.8 % (41.0-53.0); Hemoglobin 10.6 g/dL (13.5-16.0); Immature Granulocytes % (Auto) 15 % (0-0); Immature Granulocytes Auto 2.77 Thou/mm3 (0.00-0.00); Lymphocytes # (Auto) 2.1 Thou/mm3 (1.0-4.8); Lymphocytes % (Auto) 11 % (10-50); Mean Corpuscular HGB Conc 35.6 g/dl (31.0-37.0); Mean Corpuscular Hemoglobin 31.4 pg (25.0-35.0); Mean Corpuscular Volume 88 fL (80-100); Monocytes # (Auto) 0.9 Thou/mm3 (0.0-0.8); Monocytes % (Auto) 5 % (0-12); Neutrophils % (Auto) 66 % (37-80); Nucleated Red Blood Cell % 0 /100 WBC (0); Platelet Count 351 Thou/mm3 (140-440); Red Blood Count 3.38 Miln/mm3 (4.50-5.90); White Blood Count 18.2 Thou/mm3 (3.8-10.6)
[2024-07-19 06:36] LABS: Magnesium 1.8 mg/dL (1.6-2.6)
[2024-07-19] MEDS: SEVELAMER CARBONATE 800 MG TABLET PO ×2 (07:50→12:13)
[2024-07-19] MEDS: NIFEdipine XL 30 MG TABCR PO ×2 (07:57→11:00)
[2024-07-19] MEDS: ASPIRIN EC 81 MG TABEC PO (07:57)
[2024-07-19] MEDS: CLOPIDOGREL BISULFATE 75 MG TABLET PO (07:58)
[2024-07-19] MEDS: TAMSULOSIN HCL 0.4 MG CAPSULE PO (07:58)
[2024-07-19] MEDS: carVEDILOL 12.5 MG TABLET 25 MG PO (07:58)
[2024-07-19] MEDS: DOXYCYCLINE 100 MG TABLET PO (07:58)
[2024-07-19] MEDS: cefTRIAXone 1,000 MG in SODIUM CHLORIDE 0.9% (P) 50 ML 100 MG IV (08:01)
[2024-07-19] MEDS: HEPARIN SOD INJ 5000 UNIT/ML VIAL SC (08:01)
[2024-07-19 09:23] LABS: Albumin, Serum 3.1 gm/dL (3.5-5.0); Anion Gap 9 (7-16); BUN/Creatinine Ratio 38 Ratio (12-20); Blood Urea Nitrogen 64 mg/dL (9-23); Calcium 8.6 mg/dL (8.3-10.6); Calcium (Corrected) 9.3 mg/dL (8.5-10.1); Carbon Dioxide 21.3 mMol/L (20.0-31.0); Chloride 110 mMol/L (98-107); Creatinine (Component) 1.7 mg/dL (0.6-1.3); Estimated Creatinine Clearance 53.5 mL/min (>60); Glucose 103 mg/dL (74-106); Osmolality,Calculated 297 (275-295); Phosphorous 2.9 mg/dL (2.4-5.1); Potassium 3.6 mMol/L (3.4-5.1); Sodium 140 mMol/L (136-145); eGFR 47 See Note
--- NOTE | 2024-07-19 09:32 | PC.SS ---
Follow up note: SS met with patient and at bedside to discuss d/c plans. states they prefer home health services. They do not have a preference. confirmed patient already has a walker and wheelchair at home as well as 02 ([facility]). Patient PCP: Dr. Alas at [facility]. Last appt. was 2 weeks ago. Patient has an order for PT evaluation. Possible d/c today. SS will provide referral number for [facility] to order briefs under his insurance.
[2024-07-19 09:33] LABS: Alanine Aminotransferase 13 U/L (10-49); Albumin/Globulin Ratio 0.9 (1.2-2.2); Alkaline Phosphatase 100 U/L (46-116); Anion Gap 8 (7-16); Aspartate Amino Transferase 25 U/L (0-34); BUN/Creatinine Ratio 42 Ratio (12-20); Bilirubin,Total 1.4 mg/dL (0.3-1.2); Blood Urea Nitrogen 67 mg/dL (9-23); Calcium 8.5 mg/dL (8.3-10.6); Calcium (Corrected) 9.3 mg/dL (8.5-10.1); Carbon Dioxide 21.7 mMol/L (20.0-31.0); Chloride 112 mMol/L (98-107); Creatinine (Component) 1.6 mg/dL (0.6-1.3); Estimated Creatinine Clearance 56.9 mL/min (>60); Globulin 3.3 gm/dL (2.3-3.5); Glucose 102 mg/dL (74-106); Osmolality,Calculated 302 (275-295); Sodium 142 mMol/L (136-145); Total Protein 6.3 gm/dL (5.7-8.2); eGFR 51 See Note
--- NOTE | 2024-07-19 10:33 | PD.RESDS ---
Planned Discharge Date 07/19/24 DS: Providers Provider Date of admission: 07/16/24 15:48 Primary care physician: Mateo Hernandez MD Admitting Provider: Cleve Burger MD Attending Provider on Admission: Cleve Burger MD Consults: 07/16/24 14:15 Consult to Nephrology Stat Comment: LATASHA on CKD Consulting Provider: Mateo Hernandez 07/18/24 14:04 Referral Physical Therapy Routine Comment: Physician Instructions: Attending Provider on DC: Dede Minor MD Discharging Provider: Dede Minor MD DS: Diagnosis Problem List Completed Was Problem List Reviewed/Reconciled?: Yes Hospital Course Hospital Course Hospital course: Lex is a 54 y/o male with PMHx HFpEF EF 60%, HTN, CKD, methamphetamine use, cirrhosis (complicated with ascities in the past), Sean type B aortic dissection (stable, has been referred to vascular surgery) who was admitted to [facility] on 07/16/2024 for acute renal failure. Pt was sent to the ED after labwork showed Cr ~6.0 and was sent to the ED. Patient arrives with a blood pressure of 118/68, afebrile and otherwise unremarkable vitals and was saturating 96% on 3 L. He was worked up and was found to have white count 19.3, hemoglobin 11.2, sodium 127, potassium 3.4, bicarb 15.5, chloride of 100, BUN/creatinine of 132 and 6.2, GFR of 10, glucose of 696, phosphorus of 7, T. bili of 1.9, magnesium of 2.1, troponin 0.049, BNP of 1642. EKG showed some left atrial enlargement and showed bradycardia. Chest x-ray showed significant left base pneumonia. Nephrology was consulted and medicine was consulted. Pt was given 1L bolus NS and was started on NS 100 cc/hr maintenance and pt was admitted to floors. While on the floors, nephrology was consulted who recommended pt to continue with IV fluids and to avoid nephrotoxic agents. Pt had renal panels done routinely throughout the admission and pt was able to improve with renal function. Pt began to have improved urine output. Last Cr showed to 1.6 and pt was able to make urine fine. Etiology of pt's LATASHA likely related to 2 mg BID that was a new change for him starting in June . Pt seems to have extreme dehydration upon arrival and improved with IV fluid. Pt was also found to have CAP and was discharged with 4 days of Augmentin and Doxycycline. Pt did have some leukocytosis of 18 upon d/c, likely reactive, recommended to follow up with CBC and PCP within a week. Pt also had some abnormal PBS, showed 25% immature granulocytes, recommend for further testing per pathologist, could be component of malignancy including leukemia, however could be related to kidney disease. Recommended to follow up with Flow cytometry and BCR-ALB1 PCR tests. Pt to see Dr. Hauser, vascular surgery to manage Sean B aortic dissection which is stable at this time. #Acute renal failure, resolved #Oliguria, resolved #Prerenal Azotemia #Hx of CKD #Metabolic acidosis #Electrolyte derangements #Community-acquired pneumonia #Hx of [place] B Aortic dissection, stable #Hx of HFrEF, w/ moderate RV dysfunction, EF ~50%, and dilation of RV and RA #History of moderate to severe pulmonary hypertension. 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 Hernandez within one week Do not take Bumex, take Lasix 20 mg everyday instead Take blood pressure every day, hold blood pressure medicines if SBP is below 100 Take your nifedipine 60 mg every day, new blood pressure medicine, decide if PCP would like to continue Patient seen and care discussed with my senior resident, Dr. Pina, and my attending physician, Dr. Iván Rob, PGY-1 Time Spent with Patient Time attestation: Total time spent providing and/or coordinating discharge services: Time spent: Greater than 30 minutes Exam Vital Signs Temp Pulse Resp BP Pulse Ox O2 Del Method O2 Flow Rate 97.4 F 59 L 16 165/84 H 93 L Nasal Cannula 4 07/19/24 08:00 07/19/24 08:07 07/19/24 08:07 07/19/24 08:00 07/19/24 08:07 07/19/24 04:00 07/19/24 08:07 Narrative Exam General: AAOx3, NAD, pt appears comfortable HEENT: Dry mucous membranes, conjunctiva clear, EOMI, PERRLA, okay dentition Cardiovascular: Pansystolic murmur heard, radial pulses +2 bilat, has some tattoos on chest, RRR Pulmonary: Some possible crackles heard in LLB, cough present GI: No tenderness to light or deep palpitation, no guarding, rigidity, rebound tenderness or distension Extremities: No presence of trace or pitting edema in lower extremities bilaterally, dorsalis pedis pulses +2 bilaterally Neuro: AAOx3, no focal motor or sensory deficits in the UE or LE bilat Psych: Cooperative, Discharge Plan Plan Patient Disposition: HOME (Self Care) Care Plan Goals: Follow up with primary care provider within 1 week of discharge Repeat CBC within a week Take medicines as prescribed Take your antibiotics and finish the four day course Follow up with your Marketing Production Specialist, Dr. Hernandez within one week Do not take Bumex, take Lasix 20 mg everyday instead Take blood pressure every day, hold blood pressure medicines if SBP is below 100 Take your nifedipine 60 mg every day, new blood pressure medicine, decide if PCP would like to continue Prescriptions/Referrals Prescriptions/Med Rec: New furosemide [Lasix] 20 mg tablet 20 mg PO QDAY 30 Days Qty: 30 0RF amoxicillin-pot clavulanate 875-125 mg tablet 1 tab PO BID 4 Days Qty: 8 0RF doxycycline hyclate 100 mg capsule 100 mg PO BID 4 Days Qty: 8 0RF nifedipine 60 mg tablet extended release 60 mg PO QDAY 30 Days Qty: 30 0RF sodium citrate-citric acid 500-334 mg/5 mL Solution 30 ml PO BID 30 Days Qty: 1800 2RF Continued tamsulosin 0.4 mg capsule 0.4 mg PO QHS Qty: 30 3RF ferrous sulfate 325 mg (65 mg iron) Tablet,Delayed Release (Dr/Ec) 325 mg PO QOD Qty: 30 0RF atorvastatin 20 mg tablet 20 mg PO QPM Qty: 30 0RF Held spironolactone 25 mg tablet 12.5 mg PO QDAY Qty: 30 0RF Hold Instructions: resume upon PCP visit Discontinued bumetanide 1 mg tablet 1 mg PO BID Qty: 30 0RF Referrals: Mateo Hernandez MD [Primary Care Provider] - Patient/Caregiver Discharge Instructions Other Discharge Activity Instructions:: Follow up with primary care provider within 1 week of discharge. Education Materials: CKD Dc Print Language: Bahamian Stand Alone Forms: [employer] Award Info., Patient Portal Info Letter Discharge Order Discharge Orders: Discharge (Routine); Ordered 07/19/24 Ordered By: Matt Rob Quality Discharge Quality Measures VTE prophylaxis (Heparin)
--- NOTE | 2024-07-19 15:02 | PC.CC ---
Home Health packet created; missing d/c summary. [facility]
--- NOTE | 2024-07-19 15:41 | ESPR_ITS ---
Documentation for date of: 07/19/24 Subjective Subjective Interval history: The patient is a 54-year-old male with significant past medical history of HFpEF with LVEF 50% on May 2024, moderate to severe pulmonary hypertension RVSP around 60 mmHg, methamphetamine use, cirrhosis of liver, Sean type B aortic dissection who was sent by his jack prizer Dr. Stubbs and grid casting machine operator helper Dr. Hernandez after being found to have his creatinine 6.2. He was recently discharged from hospital on 06/01/2024 on Bumex 1 mg twice daily along with Aldactone, as he had gained around 30 pounds before coming to hospital then. However, patient continued Bumex 1 mg twice daily along with Aldactone even after gaining his probable dry weight. He reported that recently he has been having low appetite, and his urine output has gone down. He has been using home oxygen more often. He denied any headache, lightheadedness, chest pain, any abdominal pain, admitted occasional diarrhea, and denied any lower limb edema. He denied any fever or chills, nausea or vomiting. In the ED his vitals were significant for blood pressure 118/64, pulse 60, RR 22, saturating 93% on 3 L NC. Labs are significant for white count 19.3, hemoglobin 11.2, PT 13.4, sodium 127, potassium 3.6, bicarb 15, BUN 30, creatinine 6.2, GFR 9, osmolality 297, total bilirubin 1.9, AST 44, troponin 0.049, BNP 1642, EKG significant for sinus bradycardia, left atrial enlargement with right axis deviation, CXR did not reveal any pulmonary edema. Nephrology consultation was done for LATASHA on CKD stage III A, was recommended to give 1 L of IV normal saline bolus, and then maintenance IV normal saline 100 cc/h. 07/17/2024: The patient was interviewed and examined at the bedside this morning. He reported doing a little better. His blood pressure was 150/69, saturating 93% on 2 L NC. White count mildly trended up to 20.0, hemoglobin 11.6, sodium 130, bicarb trended down to 14.5, BUN trended up to 131, creatinine trended down to 5.4, and EGFR improved to 12. Phosphorus has been worsening to 7.3. Iron 62, TIBC 204, iron binding 142, ferritin 532, likely anemia of chronic disease may be multifactorial with iron deficiency in the setting of low p.o. intake. 07/18/2024: The patient was interviewed and examined at the bedside again this morning. He reported doing much better. His blood pressure were stable with mild hypertension, saturating 91% on 4 L NC. WBC 20.4, hemoglobin 11.4, chloride 110, bicarb 19.7, renal panel improving with BUN 87, creatinine 2.3 and EGFR 33. Total bilirubin trended down to 1.3. We will continue with NS 100cc/hr and monitor renal panel daily. 07/19/2024: The patient was interviewed and examined at the bedside this morning. He reported doing much better. He was mildly hypertensive with other vitals WNL, saturating 94 to 95% on 3 to 4 L NC. White count trended down to 18.2, BUN 67, creatinine 1.6, GFR 51. We will sign off on this case at this point as his LATASHA has resolved. Recommended to follow-up with grid casting machine operator helper Dr. Hernandez within 1 to 2-week of discharge. Exam Vital Signs Temp Pulse Resp BP Pulse Ox O2 Del Method O2 Flow Rate 97.6 F 62 18 174/85 H 95 Room Air 4 07/19/24 11:38 07/19/24 12:00 07/19/24 11:38 07/19/24 11:38 07/19/24 11:38 07/19/24 11:38 07/19/24 08:07 Narrative Exam General: Ill appearing, cooperative gentleman, no acute distress, Alert and Oriented x 3 HEENT: Moist mucous membranes, oropharynx clear Neck: Supple, No masses, No JVD CVS: S1S2 Regular rate and rhythm, No murmurs, rubs or gallops, tattoos over chest Lungs: Clear to auscultation with no accessory use, no wheeze no rhonchi Abd: Soft, NT/ND, +BS, no organomegaly Ext: No edema, warm and well perfused Skin: No rash Psych: Appropriate mood and affect Objective Labs 07/19/24 05:00 07/19/24 08:27 Labs: Laboratory Results - last 24 hr 07/18/24 07/19/24 07/19/24 17:02 00:39 04:51 WBC RBC Hgb Hct MCV MCH MCHC RDW Std Deviation Plt Count Neut % (Auto) Lymph % (Auto) [place] % (Auto) Eos % (Auto) Baso % (Auto) Neut # (Auto) Lymph # (Auto) [place] # (Auto) Eos # (Auto) Baso # (Auto) Immature Gran # (Auto) Absolute Nucleated RBC Immature Gran % Nucleated RBC % Sodium 139 140 Potassium 3.8 D 3.9 Chloride 110 H 112 H Carbon Dioxide 19.7 L 20.5 Anion Gap 9 8 BUN 87 H 73 H Creatinine 2.3 H D 1.9 H Estim Creat Clear Calc 39.6 L 47.9 L eGFR 33 L 41 L BUN/Creatinine Ratio 38 H 38 H Glucose 97 97 Calculated Osmolality 304 H 300 H Calcium 8.4 8.5 Corrected Calcium 9.1 9.1 Phosphorus 3.6 3.2 Magnesium 1.8 Total Bilirubin AST ALT Alkaline Phosphatase Total Protein Albumin 3.1 L 3.2 L Globulin Albumin/Globulin Ratio 07/19/24 07/19/24 07/19/24 05:00 08:27 08:27 WBC 18.2 H RBC 3.38 L Hgb 10.6 L Hct 29.8 L MCV 88 MCH 31.4 MCHC 35.6 RDW Std Deviation 48.0 H Plt Count 351 Neut % (Auto) 66 Lymph % (Auto) 11 [place] % (Auto) 5 Eos % (Auto) 2 Baso % (Auto) 1 Neut # (Auto) 12.0 H Lymph # (Auto) 2.1 [place] # (Auto) 0.9 H Eos # (Auto) 0.4 Baso # (Auto) 0.1 Immature Gran # (Auto) 2.77 H Absolute Nucleated RBC 0.00 Immature Gran % 15 H Nucleated RBC % 0 Sodium 140 142 Potassium 3.6 Chloride Carbon Dioxide Anion Gap BUN Creatinine Estim Creat Clear Calc eGFR BUN/Creatinine Ratio Glucose Calculated Osmolality Calcium Corrected Calcium Phosphorus Magnesium Total Bilirubin AST ALT Alkaline Phosphatase Total Protein Albumin Globulin Albumin/Globulin Ratio 07/19/24 07/19/24 07/19/24 08:27 08:27 08:27 WBC RBC Hgb Hct MCV MCH MCHC RDW Std Deviation Plt Count Neut % (Auto) Lymph % (Auto) [place] % (Auto) Eos % (Auto) Baso % (Auto) Neut # (Auto) Lymph # (Auto) [place] # (Auto) Eos # (Auto) Baso # (Auto) Immature Gran # (Auto) Absolute Nucleated RBC Immature Gran % Nucleated RBC % Sodium Potassium 4.0 Chloride 110 H 112 H Carbon Dioxide 21.3 21.7 Anion Gap 9 BUN Creatinine Estim Creat Clear Calc eGFR BUN/Creatinine Ratio Glucose Calculated Osmolality Calcium Corrected Calcium Phosphorus Magnesium Total Bilirubin AST ALT Alkaline Phosphatase Total Protein Albumin Globulin Albumin/Globulin Ratio 07/19/24 07/19/24 07/19/24 08:27 08:27 08:27 WBC RBC Hgb Hct MCV MCH MCHC RDW Std Deviation Plt Count Neut % (Auto) Lymph % (Auto) [place] % (Auto) Eos % (Auto) Baso % (Auto) Neut # (Auto) Lymph # (Auto) [place] # (Auto) Eos # (Auto) Baso # (Auto) Immature Gran # (Auto) Absolute Nucleated RBC Immature Gran % Nucleated RBC % Sodium Potassium Chloride Carbon Dioxide Anion Gap 8 BUN 64 H 67 H Creatinine 1.7 H 1.6 H Estim Creat Clear Calc 53.5 L eGFR BUN/Creatinine Ratio Glucose Calculated Osmolality Calcium Corrected Calcium Phosphorus Magnesium Total Bilirubin AST ALT Alkaline Phosphatase Total Protein Albumin Globulin Albumin/Globulin Ratio 07/19/24 07/19/24 07/19/24 08:27 08:27 08:27 WBC RBC Hgb Hct MCV MCH MCHC RDW Std Deviation Plt Count Neut % (Auto) Lymph % (Auto) [place] % (Auto) Eos % (Auto) Baso % (Auto) Neut # (Auto) Lymph # (Auto) [place] # (Auto) Eos # (Auto) Baso # (Auto) Immature Gran # (Auto) Absolute Nucleated RBC Immature Gran % Nucleated RBC % Sodium Potassium Chloride Carbon Dioxide Anion Gap BUN Creatinine Estim Creat Clear Calc 56.9 L eGFR 47 L 51 L BUN/Creatinine Ratio 38 H 42 H Glucose 103 Calculated Osmolality Calcium Corrected Calcium Phosphorus Magnesium Total Bilirubin AST ALT Alkaline Phosphatase Total Protein Albumin Globulin Albumin/Globulin Ratio 07/19/24 07/19/24 07/19/24 08:27 08:27 08:27 WBC RBC Hgb Hct MCV MCH MCHC RDW Std Deviation Plt Count Neut % (Auto) Lymph % (Auto) [place] % (Auto) Eos % (Auto) Baso % (Auto) Neut # (Auto) Lymph # (Auto) [place] # (Auto) Eos # (Auto) Baso # (Auto) Immature Gran # (Auto) Absolute Nucleated RBC Immature Gran % Nucleated RBC % Sodium Potassium Chloride Carbon Dioxide Anion Gap BUN Creatinine Estim Creat Clear Calc eGFR BUN/Creatinine Ratio Glucose 102 Calculated Osmolality 297 H 302 H Calcium 8.6 8.5 Corrected Calcium 9.3 Phosphorus Magnesium Total Bilirubin AST ALT Alkaline Phosphatase Total Protein Albumin Globulin Albumin/Globulin Ratio 07/19/24 07/19/24 08:27 08:27 WBC RBC Hgb Hct MCV MCH MCHC RDW Std Deviation Plt Count Neut % (Auto) Lymph % (Auto) [place] % (Auto) Eos % (Auto) Baso % (Auto) Neut # (Auto) Lymph # (Auto) [place] # (Auto) Eos # (Auto) Baso # (Auto) Immature Gran # (Auto) Absolute Nucleated RBC Immature Gran % Nucleated RBC % Sodium Potassium Chloride Carbon Dioxide Anion Gap BUN Creatinine Estim Creat Clear Calc eGFR BUN/Creatinine Ratio Glucose Calculated Osmolality Calcium Corrected Calcium 9.3 Phosphorus 2.9 Magnesium Total Bilirubin 1.4 H AST 25 ALT 13 Alkaline Phosphatase 100 Total Protein 6.3 Albumin 3.1 L 3.0 L Globulin 3.3 Albumin/Globulin Ratio 0.9 L Quality Measures Quality Measures VTE prophylaxis (Heparin) Assessment & Plan Assessment Current Active Medications: Generic Name Dose Route Start Last Admin Trade Name Freq PRN Reason Stop Dose Admin Aspirin 81 mg 07/17/24 09:00 07/18/24 08:31 Aspirin Ec 81 Mg Tabec PO 08/16/24 08:59 81 mg QDAY MICAH Administration Atorvastatin Calcium 40 mg 07/18/24 21:00 Atorvastatin Calcium 20 Mg Tablet PO 08/17/24 20:59 HS MICAH Carvedilol 25 mg 07/16/24 21:00 07/18/24 08:31 Carvedilol 12.5 Mg Tablet PO 08/15/24 20:59 25 mg BID MICAH Administration Citric Acid/Sodium Citrate 30 ml 07/16/24 22:00 07/18/24 14:14 Citric Acid/Sodium Citr 15 Ml Udc (Bicitra) PO 08/15/24 21:59 30 ml TID MICAH Administration Clopidogrel Bisulfate 75 mg 07/17/24 09:00 07/18/24 08:32 Clopidogrel Bisulfate 75 Mg Tablet PO 08/16/24 08:59 75 mg QDAY MICAH Administration Doxycycline Hyclate 100 mg 07/16/24 21:00 07/18/24 08:31 Doxycycline 100 Mg Tablet PO 07/23/24 20:59 100 mg BID MICAH Administration Ferrous Sulfate 325 mg 07/17/24 09:00 07/17/24 20:52 Ferrous Sulf 325 Mg Tablet PO 08/16/24 08:59 325 mg Q48HR@2100 MICAH Administration Heparin Sodium (Porcine) 5,000 unit 07/17/24 21:00 07/18/24 08:37 Heparin Sod Inj 5000 Unit/Ml Vial SC 07/30/24 15:59 5,000 unit Q12HR MICAH Administration Ceftriaxone Sodium 1,000 mg/ 50 mls @ 100 mls/hr 07/16/24 16:07 07/18/24 08:29 Sodium Chloride IV 07/23/24 16:06 100 mls/hr QDAY MICAH Administration Sodium Chloride 1,000 mls @ 100 mls/hr 07/17/24 08:40 07/18/24 10:09 Ns IV 08/16/24 08:36 100 mls/hr .Q10H MICAH Administration Nifedipine 30 mg 07/18/24 09:45 07/18/24 10:03 Nifedipine Xl 30 Mg Tabcr PO 08/17/24 09:44 30 mg QDAY MICAH Administration Ondansetron HCl 4 mg 07/16/24 15:48 Ondansetron Inj 2 Mg/Ml Inj 2 Ml IV 08/15/24 15:47 Q6H PRN NAUSEA OR VOMITING Protocol Sertraline HCl 25 mg 07/16/24 21:00 07/17/24 20:52 Sertraline Hcl 25 Mg Tablet PO 08/15/24 20:59 25 mg HS MICAH Administration Sevelamer Carbonate 800 mg 07/17/24 08:00 07/18/24 18:05 Sevelamer Carbonate 800 Mg Tablet PO 08/16/24 07:59 800 mg TIDWM MICAH Administration Tamsulosin HCl 0.4 mg 07/17/24 09:00 07/18/24 08:32 Tamsulosin Hcl 0.4 Mg Capsule PO 08/16/24 08:59 0.4 mg DAILY MICAH Administration Plan The patient is a 54-year-old male with significant past medical history of HFpEF with LVEF 50% on May 2024, moderate to severe pulmonary hypertension RVSP around 60 mmHg, methamphetamine use, cirrhosis of liver, Sean type B aortic dissection who was sent by his jack prizer Dr. Stubbs and grid casting machine operator helper Dr. Hernandez after being found to have his creatinine 6.2. Nephrology consultation was done for LATASHA on CKD stage III A. #LATASHA on CKD stage III A, LATASHA improved Likely secondary to aggressive diuresis. The patient was started on oral Bumex 1 mg twice daily along with Aldactone, and he continued the medications even after receiving probable dry weight. He has been having decreased appetite, and has been having poor oral intake for past week. Patient's baseline creatinine is 1.6-1.8, baseline GFR in 50s. Presented with creatinine of 6.2 and GFR 10. 07/17/2024: Creatinine 5.4, GFR 12, BUN 131 07/18/2024: BUN 87, creatinine 2.3, GFR 33 07/19/2024: BUN 67, creatinine 1.6, GFR 51 -Monitor ins and outs strictly -Encourage oral rehydration with water or fluid -Avoid nephrotoxic drugs -Renally dose medications -Renal diet -Renal panel daily in the a.m. -Recommended to follow-up with grid casting machine operator helper after 1 to 2-week of discharge. 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 07/17/2024: Sodium 130, potassium 3.7 and bicarb 14.5 -Bicitra 30 mL 3 times daily -IV sodium bicarbonate 50 mL x 1 -Renal panel daily in the a.m. -As above #Moderate hypovolemic hyperosmolar hyponatremia, improved Likely multifactorial secondary to RTA, aggressive diuretic use and poor oral intake 07/17/2024: Sodium 130 -Patient received 1 L of IV normal saline bolus in the ED -Started on maintenance normal saline 100 cc/h -Continue to monitor sodium level daily in the a.m. #Hyperphosphatemia, resolved Secondary to CKD further complicated by LATASHA -Sevelamer 800 Mg 3 times daily with meals -Monitor phosphorus level daily in the a.m. #Anemia Likely secondary to CKD, could be multifactorial with iron deficiency anemia in the setting of poor oral intake Hg 11.2, MCV 88, iron 62, TIBC 204, ferritin 532 -Started the patient on oral ferrous sulfate 325 Mg every other day #Community-acquired pneumonia #Hx of [place] B Aortic dissection, stable #Hx of HFrEF, w/ moderate RV dysfunction, EF ~50%, and dilation of RV and RA #History of moderate to severe pulmonary hypertension. 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 The patient's management plan was discussed with my attending physician MD Chauncey Brothers MD, PGY2 Attending Provider Attestation/Addendum Patient seen and examined with resident physician Dr. Zambrano. Note reviewed, agree with findings and recommendations. Lex seems to be better today. Will discharge him on low-dose diuretics. Will follow-up with me in 1 to 2 weeks.
--- NOTE | 2024-07-20 09:32 | PC.CM ---
Patient accepted by [facility]. Pending start of care date.
--- NOTE | 2024-07-20 09:41 | PC.CM ---
I sent discharge summary today. Julián accepted and pending start of care date.
--- NOTE | 2024-07-22 08:14 | PC.ADMIT ---
Pending insurance auth and start of care date with Julián [facility]OLAND
[2024-07-22 11:23] LABS: BCR-ABL1 Prior Result NOT GIVEN; BCR-ABL1 Source NOT GIVEN
[2024-07-23 07:06] LABS: P190 BCR-ABL1 NOT DETECTED; P210 BCR-ABL1 NOT DETECTED
== END 2024-07-19 13:03 | disposition home health service (06) | DRG 469 ==
LOC: SERX 15:25 → SERHOLD 16:22 → S3NX 18:33
PROVIDERS: Nurse Practitioner Primary Care; Student in an Organized Health Care Education/Training Program; Admitting Provider Student in an Organized Health Care Education/Training Program; Emergency Provider Emergency Medicine; PCP Internal Medicine; Visit Provider Student in an Organized Health Care Education/Training Program
DX: N17.9 Acute kidney failure, unspecified (principal); I13.0 Hypertensive heart and chronic kidney disease with heart failure and stage 1 through stage 4 chronic kidney disease, or unspecified chronic kidney disease; I50.42 Chronic combined systolic (congestive) and diastolic (congestive) heart failure; K74.60 Unspecified cirrhosis of liver; I71.00 Dissection of unspecified site of aorta; J18.9 Pneumonia, unspecified organism; I27.20 Pulmonary hypertension, unspecified; N40.0 Benign prostatic hyperplasia without lower urinary tract symptoms; E86.1 Hypovolemia; F15.90 Other stimulant use, unspecified, uncomplicated; E86.0 Dehydration; I07.1 Rheumatic tricuspid insufficiency; I25.10 Atherosclerotic heart disease of native coronary artery without angina pectoris; D63.8 Anemia in other chronic diseases classified elsewhere; E87.20 Acidosis, unspecified; N18.31 Chronic kidney disease, stage 3a; N25.89 Other disorders resulting from impaired renal tubular function; E87.1 Hypo-osmolality and hyponatremia; E83.39 Other disorders of phosphorus metabolism; D63.1 Anemia in chronic kidney disease; Z99.81 Dependence on supplemental oxygen; Z87.891 Personal history of nicotine dependence; Z79.82 Long term (current) use of aspirin; Z79.899 Other long term (current) drug therapy; T50.2X5A Adverse effect of carbonic-anhydrase inhibitors, benzothiadiazides and other diuretics, initial encounter; Z79.02 Long term (current) use of antithrombotics/antiplatelets
CPT/HCPCS: 36415; 71045; 80053; 80061; 80069; 80307; 81001; 81206; 82436; 82570; 82728; 83540; 83550; 83605; 83735; 83880; 84100; 84133; 84300; 84443; 84484; 84540; 85025; 85610; 85730; 87040; 87081; 87400; 87811; 93005; 93225; 96361; 96365; 96372; 97162; 99285; J0696; J1643; J7030; J7040; J7050; A9270